=== PATIENT | male | born 1960 | race Caucasian/White ===

== ENCOUNTER → 2016-10-16 | Outpatient (CLI) | payer OTHER ==
[~2016-10-16] MED LIST: ADVIN50/60 INH; ALBINS/ NEB; ALBU0.08 INH; AMT24 PO; CLX/20 PO; DXY100 PO; FLUC100T4 PO; IPRA1AER2 INH; LOVENOX SQ; LPT/20 PO; LUBI8CAP4 PO; MOME200A INH; MRLP17 PO; NYSS5 PO; PANT40TA PO; PRED10TA PO; PRLSR20 PO; PRT/40 PO; RST/30 PO; SENN-61 PO; SPRIN/30 INH; TMF75 PO
--- NOTE | 2016-10-16 15:31 | DIAGNOSTIC IMAGING REPORT ---
CT SCAN OF THE ABDOMEN AND PELVIS WITH IV CONTRAST CLINICAL HISTORY: Follow-up abnormal appendix. COMPARISON STUDY: Abdominal CT dated 04/04/2016. TECHNIQUE: Following the IV administration of 94 cc of Optiray 320, CT scan of the abdomen and pelvis is performed from the lung bases to the proximal femora. Images are reviewed in the axial, sagittal, and coronal planes. IV contrast was administered without complication. Automated dose control exposure was utilized. CT DOSE: 440.18 mGycm FINDINGS: Lung bases: The heart is normal in size noting trace pericardial effusion. Advanced emphysematous change is identified at the lung bases. No airspace consolidation or pleural effusion is seen. There is a tiny hiatal hernia. Liver: The contrast-enhanced liver is normal in size, contour, and attenuation. There is minimal central intrahepatic biliary ductal dilatation. The hepatic veins and portal veins are patent. A 6 mm hypodensity in the left lobe seen on image #44 likely represents a small cyst but is too small for definitive characterization. This is unchanged from previous. Gallbladder: Surgically absent noting clips in the gallbladder fossa. Spleen: Normal in size and attenuation. Pancreas: Unremarkable. Adrenal glands: Unremarkable. Kidneys: The contrast enhanced kidneys are normal in size and without hydronephrosis. The kidneys enhance symmetrically. There are 2 cortical hypodensities in the right lower pole measuring up to 12 mm. These likely represent cysts but are too small for definitive characterization. These are unchanged from previous. Abdominal vasculature: The abdominal aorta is normal in course and caliber noting moderate atherosclerotic calcification. Bowel: The small bowel and colon are normal in course and caliber. There is moderate colonic fecal retention. A metallic foreign body is identified in the sigmoid colon on image #332. The appendix is well-visualized and normal. Peritoneum: There is no intraperitoneal free air or abdominal ascites. There is a fat-containing umbilical hernia. Numerous foci of induration and subcutaneous gas within the ventral abdominal fat are likely related to subcutaneous injections. Lymphadenopathy: None. Pelvic viscera: The prostate gland is mildly enlarged and heterogeneous, measuring up to 4.7 cm in transverse diameter. The bladder and seminal vesicles are normal as imaged. Skeletal structures: The skeletal structures are osteopenic. No lytic or blastic lesions are seen. There are healed left-sided rib fractures. IMPRESSION: 1. There are no acute infectious or inflammatory findings in the abdomen or pelvis. 2. The appendix is well-visualized and normal. Prominence at the appendiceal tip has resolved from 04/04/2016. 3. There is moderate colonic fecal retention. 4. There is an indeterminant metallic foreign body identified in the sigmoid colon. Clinical correlation will be required. 5. There is moderate colonic fecal retention. 6. Advanced emphysema is seen at the lung bases. 7. Nonobstructing right renal calculus. 8. Additional changes as above. Electronically signed by: Jorge Alberto Webber M.D. 10/16/2016 3:29 PM Dictated Date/Time: 10/16/2016 3:19 PM
== END | disposition home or self-care (01) ==
LOC: C.CTS 14:52
PROVIDERS: ATTEND Surgery
DX: K38.9 Disease of appendix, unspecified (principal); K59.00 Constipation, unspecified; J43.9 Emphysema, unspecified; N20.0 Calculus of kidney

== ENCOUNTER 2016-12-01 17:19 | Inpatient (IN) | payer OTHER ==
[~2016-12-01] VITALS: Ht 185.4 cm; Wt 76.2 kg
[~2016-12-01 17:19] MED LIST changes: -ADVIN50/60 INH; -ALBINS/ NEB; -CLX/20 PO; -DXY100 PO; -LUBI8CAP4 PO; -MOME200A INH; -MRLP17 PO; -NYSS5 PO; -PRT/40 PO; -TMF75 PO
[2016-12-01] MEDS ORDERED: SODIUM CHLORIDE 0.9% 1000ML 1,000 ML IV ONE (17:27)
[2016-12-01] MEDS ORDERED: METHYLPREDNISOLONE 125 MG VIAL IV STA (17:29)
[2016-12-01] MEDS ORDERED: ALBUT/IPRATROP 3MG/0.5MG NEB 3 ML VIAL INH ONE (17:30)
[2016-12-01] MEDS ORDERED: CLX/20 PO (17:37)
[2016-12-01 18:00] LABS: BASO % 0.7 %; BASO ABS # 0.05 K/uL (0-0.2); COMPLETE YES; EOS % 2.4 %; HEMATOCRIT 48.5 % (42-52); IG% 0.7 %; LYMPH % 6.3 %; LYMPH ABS # 0.48 K/uL (1.2-3.4); MEAN CELL VOLUME 86.6 fL (80-100); MEAN CORPUSCULAR HEMOGLOBIN 29.3 pg (25-34); MEAN CORPUSCULAR HGB CONC 33.8 g/dl (32-36); MEAN PLATELET VOLUME 9.1 fL (7.4-10.4); MONO % 9.2 %; NEUT % 80.7 %; PLATELET COUNT 212 K/uL (130-400); WHITE BLOOD COUNT 7.58 K/uL (4.8-10.8)
[2016-12-01] MEDS: MoRPHine SULFATE 4 MG/ML 1 ML CARP\\VIAL IV PRN ×3 (18:03→20:16)
[2016-12-01 18:13] LABS: PARTIAL THROMBOPLASTIN RATIO 0.9; PROTHROMBIN TIME (PATIENT) 10.5 SECONDS (9.0-12.0)
[2016-12-01 18:15] VITALS: PULSE 119; O2SAT 96
[2016-12-01] MEDS ORDERED: MOME200A INH (18:17)
[2016-12-01 18:18] LABS: ALT/SGPT 34 U/L (12-78); AST/SGOT 15 U/L (15-37); BLOOD UREA NITROGEN 9 mg/dl (7-18); BUN/CREATININE RATIO 7.7 (10-20); C-REACTIVE PROTEIN 4.58 mg/dl (0-0.29); CALCIUM 8.7 mg/dl (8.5-10.1); CARBON DIOXIDE 28 mmol/L (21-32); CHLORIDE 106 mmol/L (98-107); GLUCOSE 80 mg/dl (70-99); MAGNESIUM 1.8 mg/dl (1.8-2.4); SODIUM 139 mmol/L (136-145)
[2016-12-01] MEDS ORDERED: ADVIN50/60 INH (18:18)
[2016-12-01] MEDS ORDERED: ALBINS/ NEB (18:18)
[2016-12-01] MEDS ORDERED: PRED10TA PO (18:18)
[2016-12-01] MEDS ORDERED: PRT/40 PO (18:18)
[2016-12-01 18:21] LABS: ALKALINE PHOSPHATASE 142 U/L (45-117); CKMB/CK RATIO 2.6 (0-3.0); PHOSPHORUS 3.4 mg/dl (2.5-4.9)
[2016-12-01 18:23] LABS: VEN BLOOD GAS BASE EXCESS 2.7 mmol/L; VENOUS BLOOD GAS PCO2 51 mmHg (38.0-50.0); VENOUS BLOOD GAS PO2 23 mmHg
[2016-12-01 18:31] LABS: VEN BLD GAS O2 SATURATION < 60.0 %
--- NOTE | 2016-12-01 18:37 | DIAGNOSTIC IMAGING REPORT ---
CHEST ONE VIEW PORTABLE CLINICAL HISTORY: Sepsis. Difficulty breathing. COMPARISON STUDY: Chest radiograph March 31, [address] April 14, 2016. FINDINGS: A left subclavian [id number] is in place. There is severe emphysema. There is no pneumothorax or pleural effusion. No consolidation is identified to suggest pneumonia. Linear bilateral opacities are unchanged and favor scarring. Cardiomediastinal silhouette is normal. IMPRESSION: No acute findings. No change in appearance of the chest. Severe emphysema. Electronically signed by: Hansel Lopez M.D. 12/01/2016 6:35 PM Dictated Date/Time: 12/01/2016 6:33 PM
[2016-12-01] MEDS ORDERED: OPTIRAY 320 IV PRN (18:45)
--- NOTE | 2016-12-01 19:53 | DIAGNOSTIC IMAGING REPORT ---
CT ANGIOGRAPHY OF THE CHEST, PULMONARY EMBOLUS PROTOCOL CLINICAL HISTORY: Shortness of breath. History of lung cancer. COMPARISON STUDY: Chest CT April 14, 2016. TECHNIQUE: Following IV administration of 98 mL of Optiray-320, helical axial images of the chest were obtained utilizing the pulmonary embolus protocol. Maximal intensity projections and sagittal and coronal reformats were viewed on an independent 3D workstation. IV contrast was administered without complication. CT DOSE: 247.52 mGy.cm FINDINGS: No pulmonary emboli are identified. There is no evidence of thoracic aortic dissection. The size of the heart is normal. There is no pericardial effusion. Severe emphysema is noted. No pneumothorax or pleural effusion is present. No enlarged thoracic lymph nodes are present. A prominent upper right paratracheal lymph node remains unchanged since prior exam. Scattered irregular nodules within the lungs are unchanged since prior exam as well. No new nodules are present. There is no consolidation. No suspicious osseous lesions are present. Upper abdomen is unremarkable. Biliary ductal dilatation is unchanged and likely due to prior cholecystectomy. Precarinal and right perihilar soft tissue thickening with associated calcifications remains unchanged. IMPRESSION: 1. No pulmonary emboli identified. 2. No change in appearance of the chest since prior exam of April 14, 2016. 3. Severe emphysema. 4. Stable scattered irregular nodules within the lungs. These remain indeterminate and continued imaging follow-up is recommended. Electronically signed by: Hansel Lopez M.D. 12/01/2016 7:52 PM Dictated Date/Time: 12/01/2016 7:38 PM
[2016-12-01] MEDS ORDERED: LEVAQUIN 750MG / 150ML D5W IV STA (20:06)
[2016-12-01] MEDS ORDERED: SODIUM CHLORIDE 0.9% 1000ML 1,000 ML IV STA (20:06)
[2016-12-01] MEDS ORDERED: ALBUT/IPRATROP 3MG/0.5MG NEB 3 ML VIAL INH STA (20:29)
[2016-12-01] MEDS ORDERED: ONDANSETRON INJ 2 MG/ML 2 ML VIAL IV PRN (21:00)
[2016-12-01] MEDS: ALBUT/IPRATROP 3MG/0.5MG NEB 3 ML VIAL INH SCH (21:00)
[2016-12-01] MEDS ORDERED: TRAMADOL HCL 50 MG TAB PO PRN (21:00)
[2016-12-01] MEDS ORDERED: ALBUTEROL 0.083% NEBU SOLN 3 ML VIAL INH PRN (21:00)
--- NOTE | 2016-12-01 21:07 | History and Physical ---
History & Physical Date & Time of Service: Dec 01, 2016 at 21:05 Chief Complaint: Can't Breathe,Abd Cramps,Heart Hurts Primary Care Physician: Isak Zuniga M.D. History of Present Illness Source: patient 56 y/o M w/Hx, COPD, non small cell lung CA, PE 6 months prior. Presents with a productive cough, SOB and abdominal cramps. Pt was tachycardic, borderline hypotensive and mildly hypoxic on arrival to the ER. As he recently had a PE, he was sent for a CTA which revealed only severe emphysema. He denies fevers, N /V, CP, diarrhea or dysuria. The pt was diagnosed with lung CA in 2011 and was treated with radiation and chemo. He was told he was in remission and terminated treatment 08/18. Past Medical/Surgical History Medical Problems: (1) Lung cancer Status: Chronic (2) Mediport Status: Resolved (3) Non-small cell lung cancer Status: Chronic (4) Peptic Ulcer Disease Status: Chronic 5) Severe COPD 6) Hyperlipidemia Family History Cancer Diabetes mellitus Gallbladder disease Heart disease Hypertension Kidney stones Social History Quit smoking 2011 with Dx of CA - denies ETOH Smoking Status: Former Smoker Drug Use: none Marital Status: single Housing status: lives alone Occupational Status: unemployed Immunizations History of Influenza Vaccine: No History of Tetanus Vaccine?: Unknown History of Pneumococcal: No History of Hepatitis B Vaccine: No Multi-Drug Resistant Organisms History of MDRO: No Allergies Coded Allergies: No Known Allergies (Verified , 07/28/16) Home Medications Scheduled Atorvastatin (Atorvastatin Calcium), 20 MG PO QAM Citalopram (Citalopram Hydrobromide), 20 MG PO QAM Fluticasone Prop/Salmeterol (Advair Diskus 500/50 60 Dose), 1 PUFF INH BID Mometasone Furoate-Formoterol (Dulera 200/5 Mcg), 2 PUFFS INH BID Pantoprazole (Pantoprazole Sodium), 40 MG PO QAM Prednisone (Prednisone), 10 MG PO DAILY Tiotropium Comstock (Spiriva Handihaler), 1 CAP INH QPM Scheduled PRN Albuterol Sulf (Proventil 0.083% 2.5MG/3ML), 3 ML NEB Q4-6HRS PRN for SOB/ Wheezing Ipratropium-Albuterol (Combivent Respimat), 1 PUFF INH QID PRN for Shortness of Breath Temazepam (Restoril), 30 MG PO HS PRN for Sleep Review of Systems Constitutional: + weakness, No chills, No fever, No sweats Eyes: No eye pain, No worsening of vision ENT: No hearing loss, No nasal symptoms, No unusual epistaxis Respiratory: + cough, + dyspnea at rest, + dyspnea on exertion, + shortness of breath, + sputum, No wheezing Cardiovascular: No chest pain Abdomen: + pain, No nausea, No vomiting Musculoskeletal: No joint pain, No muscle pain Genitourinary - Male: No dysuria, No hematuria, No urinary frequency Neurologic: No memory loss Psychiatric: No depression symptoms Endocrine: + fatigue, No excessive thirst Hematologic / Lymphatic: No abnormal bleeding/bruising, No clotting problems Integumentary: No rash Allergic / Immunologic: No environmental allergies Physical Exam Vital Signs Date Time Temp Pulse Resp B/P Pulse Ox O2 Delivery O2 Flow Rate FiO2 12/01/16 20:29 99/76 12/01/16 20:19 114 18 94 Nasal Cannula 2.0 12/01/16 20:14 96/74 12/01/16 20:07 102/70 12/01/16 19:49 121 26 89 Room Air 12/01/16 19:44 100/69 12/01/16 19:14 97/63 12/01/16 19:09 124 17 97 12/01/16 18:59 103/72 12/01/16 18:44 98/64 12/01/16 18:39 119 25 98 12/01/16 18:34 118 25 99 12/01/16 18:33 Room Air 12/01/16 18:29 92/75 12/01/16 18:19 118 27 99 12/01/16 18:15 119 22 96 Room Air 12/01/16 18:14 96/76 12/01/16 18:04 118 26 96 12/01/16 17:59 107/73 12/01/16 17:57 113 12/01/16 17:55 97 Room Air 12/01/16 17:44 101/73 12/01/16 17:21 36.9 133 24 94/69 94 Room Air General Appearance: + pertinent finding (Plae appearing middle aged male in no acute distress) Head: normocephalic, atraumatic Eyes: normal inspection, PERRL, EOMI ENT: normal ENT inspection, pharynx normal Neck: supple, no JVD Respiratory/Chest: chest non-tender, + decreased breath sounds Cardiovascular: no edema, no gallop, no murmur, + tachycardia Abdomen/GI: normal bowel sounds, non tender, soft Back: normal inspection Extremities/Musculoskelatal: normal inspection, no calf tenderness, normal capillary refill, no pedal edema, normal range of motion Neurologic/Psych: metal loader II-XII nml as tested, no motor/sensory deficits, alert, normal mood/affect, normal reflexes, oriented x 3 Skin: warm/dry, no rash, + pertinent finding (pallor) Diagnostics Laboratory Results Results Past 24 Hours Test 12/01/16 17:30 12/01/16 18:02 Range/Units White Blood Count 7.58 4.8-10.8 K/uL Red Blood Count 5.60 4.7-6.1 M/uL Hemoglobin 16.4 14.0-18.0 g/dL Hematocrit 48.5 42-52 % Mean Corpuscular Volume 86.6 80-100 fL Mean Corpuscular Hemoglobin 29.3 25-34 pg Mean Corpuscular Hemoglobin Concent 33.8 32-36 g/dl Platelet Count 212 130-400 K/uL Mean Platelet Volume 9.1 7.4-10.4 fL Neutrophils (%) (Auto) 80.7 % Lymphocytes (%) (Auto) 6.3 % Monocytes (%) (Auto) 9.2 % Eosinophils (%) (Auto) 2.4 % Basophils (%) (Auto) 0.7 % Neutrophils # (Auto) 6.12 1.4-6.5 K/uL Lymphocytes # (Auto) 0.48 1.2-3.4 K/uL Monocytes # (Auto) 0.70 0.11-0.59 K/uL Eosinophils # (Auto) 0.18 0-0.5 K/uL Basophils # (Auto) 0.05 0-0.2 K/uL RDW Standard Deviation 51.6 36.4-46.3 fL RDW Coefficient of Variation 16.3 11.5-14.5 % Immature Granulocyte % (Auto) 0.7 % Immature Granulocyte # (Auto) 0.05 0.00-0.02 K/uL Erythrocyte Sedimentation Rate 14 0-14 mm/hr Prothrombin Time 10.5 9.0-12.0 SECONDS Prothromb Time International Ratio 1.0 0.9-1.1 Activated Partial Thromboplast Time 23.8 21.0-31.0 SECONDS Partial Thromboplastin Ratio 0.9 Sodium Level 139 136-145 mmol/L Potassium Level 4.0 3.5-5.1 mmol/L Chloride Level 106 98-107 mmol/L Carbon Dioxide Level 28 21-32 mmol/L Anion Gap 5.0 3-11 mmol/L Blood Urea Nitrogen 9 7-18 mg/dl Creatinine 1.10 0.60-1.40 mg/dl Est Creatinine Clear Calc Drug Dose 78.9 ml/min Estimated GFR () 86.5 Estimated GFR (Non- 74.6 BUN/Creatinine Ratio 7.7 10-20 Random Glucose 80 70-99 mg/dl Calcium Level 8.7 8.5-10.1 mg/dl Phosphorus Level 3.4 2.5-4.9 mg/dl Magnesium Level 1.8 1.8-2.4 mg/dl Total Bilirubin 0.6 0.2-1 mg/dl Aspartate Amino Transf (AST/SGOT) 15 15-37 U/L Alanine Aminotransferase (ALT/SGPT) 34 12-78 U/L Alkaline Phosphatase 142 45-117 U/L Total Creatine Kinase 167 39-308 U/L Creatine Kinase MB 4.3 0.5-3.6 ng/ml Creatine Kinase MB Ratio 2.6 0-3.0 Troponin I < 0.015 0-0.045 ng/ml C-Reactive Protein 4.58 0-0.29 mg/dl Pro-B-Type Natriuretic Peptide 71 0-900 pg/ml Total Protein 6.7 6.4-8.2 gm/dl Albumin 3.4 3.4-5.0 gm/dl Globulin 3.3 2.5-4.0 gm/dl Albumin/Globulin Ratio 1.0 0.9-2 Lipase 113 73-393 U/L Random Cortisol 29.14 mcg/dl Venous Blood pH 7.37 7.36-7.41 Venous Blood Partial Pressure CO2 51 38.0-50.0 mmHg Venous Blood Partial Pressure O2 23 mmHg Venous Blood HCO3 29 mmol/L Venous Blood Oxygen Saturation < 60.0 % Venous Blood Base Excess 2.7 mmol/L Microbiology Results 12/01/16 Blood Culture, Received Pending 12/01/16 Blood Culture, Received Pending Diagnostic Radiology 1. No pulmonary emboli identified. 2. Severe emphysema. 3. Stable scattered irregular nodules within the lungs. These remain indeterminate and continued imaging follow-up is recommended. Impression Assessment and Plan 56 y/o M w/Hx, COPD, non small cell lung CA, PE 6 months prior. Presents with a productive cough, SOB and abdominal cramps. Pt was tachycardic, borderline hypotensive and mildly hypoxic on arrival to the ER. As he recently had a PE, he was sent for a CTA which revealed only severe emphysema. He denies fevers, N /V, CP, diarrhea or dysuria. The pt was diagnosed with lung CA in 2011 and was treated with radiation and chemo. He was told he was in remission and terminated treatment 08/18. 1) SOB - Likely COPD exacerbation - will treat with steroids, Nebs, antibiotics , 02 protocol 2) Tachycardia and low BP - pt states that his BP is normally low - tachycardia may be compensatory and related to Albuterol use. We will monitor on telemetry and provide aggressive hydration. Less likely to represent evolving sepsis as there are no specific findings on CT to indicate bacterial PNM. A sputum culture is pending and he is receiving antibiotics for COPD regardless. 3) HPL - cont lipitor 4) Hx of PE - no PE on CTA - Heparin prophylaxis provided 5) GERD/PUD - cont PPi Full code / heparin prophylaxis Total time for this admit including review of labs, records, imaging - discussion with pt and ER MD - 38 min Level of Care Telemetry Resuscitation Status FULL RESUSCITATION VTE Prophylaxis VTE Risk Assessment Done? Y/N: Yes Risk Level: Moderate Given or contraindicated: Unfractionated heparin SQ
--- NOTE | 2016-12-01 21:51 | EMERGENCY ROOM VISIT NOTE ---
History Report prepared by Valerie: Sruthi Randolph Under the Supervision of: Dr. Bon Jensen D.O. First contact with patient: 17:24 Chief Complaint: SHORTNESS OF BREATH Stated Complaint: CAN'T BREATHE,ABD CRAMPS,HEART HURTS History of Present Illness The patient is a 56 year old male who presents to the Emergency Room with complaints of worsening constant shortness of breath that started a couple days ago. The shortness of breath is not influenced by changes in position. He states that he is on prednisone and inhalers at home, but they have offered him minimal relief. The patient states that it hurts to breath. He is also experiencing a persistent productive cough with white sputum, intermittent chest pain with coughing spells, diffuse abdominal cramping and pain, back pain , and bilateral lower extremity weakness. The patient also states that the balls of his feet feel edematous, but he otherwise denies any lower extremity edema or pain. The patient saw his PCP earlier today and they recommended that he come into the ED based on his symptoms and his history of lung cancer. The patient follows with Dr. Langley for his lung cancer and he saw him about one month ago. The patient adds that he has a history of pulmonary emboli and he was taken off of medication for it two weeks ago because he finished the 6 month treatment. The patient is a former smoker, but he states that he quit in 2011 after he was diagnosed with lung cancer. Source of History: patient Onset: a couple days ago Position: chest Quality: other (shortness of breath) Timing: constant, worsening Associated Symptoms: + abdominal pain (diffuse), + back pain, + chest pain ( intermittent), + cough (productive with white sputum), + weakness (bilateral lower extremities) Note: diffuse abdominal cramping, balls of his feet feel edematous, no lower extremity edema or pain Review of Systems See HPI for pertinent positives & negatives. A total of 10 systems reviewed and were otherwise negative. Past Medical & Surgical Medical Problems: (1) GI bleed (2) Hypertension (3) Lung cancer (4) Mediport (5) Non-small cell lung cancer (6) Peptic Ulcer Disease (7) Pulmonary embolism (8) SOB (shortness of breath) Family History Cancer Diabetes mellitus Gallbladder disease Heart disease Hypertension Kidney stones Social History Smoking Status: Former Smoker Alcohol Use: none Drug Use: none Marital Status: single Housing Status: lives alone Occupation Status: unemployed Current/Historical Medications Scheduled Atorvastatin (Atorvastatin Calcium), 20 MG PO QAM Citalopram (Citalopram Hydrobromide), 20 MG PO QAM Fluticasone Prop/Salmeterol (Advair Diskus 500/50 60 Dose), 1 PUFF INH BID Mometasone Furoate-Formoterol (Dulera 200/5 Mcg), 2 PUFFS INH BID Pantoprazole (Pantoprazole Sodium), 40 MG PO QAM Prednisone (Prednisone), 10 MG PO DAILY Tiotropium Rose (Spiriva Handihaler), 1 CAP INH QPM Scheduled PRN Albuterol Sulf (Proventil 0.083% 2.5MG/3ML), 3 ML NEB Q4-6HRS PRN for SOB/ Wheezing Ipratropium-Albuterol (Combivent Respimat), 1 PUFF INH QID PRN for Shortness of Breath Temazepam (Restoril), 30 MG PO HS PRN for Sleep Allergies Coded Allergies: No Known Allergies (Verified , 07/28/16) Physical Exam Vital Signs Date Time Temp Pulse Resp B/P Pulse Ox O2 Delivery O2 Flow Rate FiO2 12/01/16 20:44 125/79 12/01/16 20:34 118 26 94 Nasal Cannula 2.0 12/01/16 20:29 99/76 12/01/16 20:19 114 18 94 Nasal Cannula 2.0 12/01/16 20:14 96/74 12/01/16 20:07 102/70 12/01/16 19:49 121 26 89 Room Air 12/01/16 19:44 100/69 12/01/16 19:14 97/63 12/01/16 19:09 124 17 97 12/01/16 18:59 103/72 12/01/16 18:44 98/64 12/01/16 18:39 119 25 98 12/01/16 18:34 118 25 99 12/01/16 18:33 Room Air 12/01/16 18:29 92/75 12/01/16 18:19 118 27 99 12/01/16 18:15 119 22 96 Room Air 12/01/16 18:14 96/76 12/01/16 18:04 118 26 96 12/01/16 17:59 107/73 2/27/17 17:57 113 12/01/16 17:55 97 Room Air 12/01/16 17:44 101/73 12/01/16 17:21 36.9 133 24 94/69 94 Room Air Physical Exam GENERAL: Patient is awake, alert, and in no acute distress. Patient is very anxious and uncomfortable appearing. EYES: The conjunctivae are clear. The pupils are round and reactive. EARS, NOSE, MOUTH AND THROAT: The nose is without any evidence of any deformity. Mucous membranes are moist tongue is midline NECK: The neck is nontender and supple. RESPIRATORY: Absent throughout. Significant tachypnea and conversational dyspnea note. Prolonged expiratory phase was significant. CARDIOVASCULAR: Heart sounds were tachycardic but regular. No definite murmurs noted. Heart sounds are distant. GASTROINTESTINAL: The abdomen is soft. Bowel sounds are present in all quadrants. Abdomen is nontender MUSCULOSKELETAL/EXTREMITIES: There is no evidence of gross deformity full range of motion is noted in the hips and shoulders SKIN: Mottled and cool. No pedal edema appreciated. There is no obvious evidence of any rash. There are no petechiae or pallor noted. NEUROLOGIC: Patient is awake alert and oriented x3 Medical Decision & Procedures ER Provider Diagnostic Interpretation: Radiology results as stated below per my review and radiologist interpretation: CHEST ONE VIEW PORTABLE IMPRESSION: No acute findings. No change in appearance of the chest. Severe emphysema. Electronically signed by: Hansel Lopez M.D. 12/01/2016 6:35 PM Dictated Date/Time: 12/01/2016 6:[address] ANGIOGRAPHY OF THE CHEST, PULMONARY EMBOLUS PROTOCOL IMPRESSION: 1. No pulmonary emboli identified. 2. No change in appearance of the chest since prior exam of April 14, 2016. 3. Severe emphysema. 4. Stable scattered irregular nodules within the lungs. These remain indeterminate and continued imaging follow-up is recommended. Electronically signed by: Hansel Lopez M.D. 12/01/2016 7:52 PM Dictated Date/Time: 12/01/2016 7:38 PM Laboratory Results 12/01/16 17:30 Red Blood Count 5.60, Mean Corpuscular Volume 86.6, Mean Corpuscular Hemoglobin 29.3, Mean Corpuscular Hemoglobin Concent 33.8, Mean Platelet Volume 9.1, Neutrophils (%) (Auto) 80.7, Lymphocytes (%) (Auto) 6.3, Monocytes (%) (Auto) 9.2, Eosinophils (%) (Auto) 2.4, Basophils (%) (Auto) 0.7, Neutrophils # (Auto) 6.12, Lymphocytes # (Auto) 0.48, Monocytes # (Auto) 0.70, Eosinophils # (Auto) 0.18, Basophils # (Auto) 0.05 12/01/16 17:30 Test 12/01/16 00:00 12/01/16 17:30 12/01/16 17:50 12/01/16 18:02 Influenza Type A (RT-PCR) POS for Influ A (NEG) Influenza Type B (RT-PCR) Neg for Influ B (NEG) White Blood Count 7.58 K/uL (4.8-10.8) Red Blood Count 5.60 M/uL (4.7-6.1) Hemoglobin 16.4 g/dL (14.0-18.0) Hematocrit 48.5 % (42-52) Mean Corpuscular Volume 86.6 fL (80-100) Mean Corpuscular Hemoglobin 29.3 pg (25-34) Mean Corpuscular Hemoglobin Concent 33.8 g/dl (32-36) Platelet Count 212 K/uL (130-400) Mean Platelet Volume 9.1 fL (7.4-10.4) Neutrophils (%) (Auto) 80.7 % Lymphocytes (%) (Auto) 6.3 % Monocytes (%) (Auto) 9.2 % Eosinophils (%) (Auto) 2.4 % Basophils (%) (Auto) 0.7 % Neutrophils # (Auto) 6.12 K/uL (1.4-6.5) Lymphocytes # (Auto) 0.48 K/uL (1.2-3.4) Monocytes # (Auto) 0.70 K/uL (0.11-0.59) Eosinophils # (Auto) 0.18 K/uL (0-0.5) Basophils # (Auto) 0.05 K/uL (0-0.2) RDW Standard Deviation 51.6 fL (36.4-46.3) RDW Coefficient of Variation 16.3 % (11.5-14.5) Immature Granulocyte % (Auto) 0.7 % Immature Granulocyte # (Auto) 0.05 K/uL (0.00-0.02) Erythrocyte Sedimentation Rate 14 mm/hr (0-14) Prothrombin Time 10.5 SECONDS (9.0-12.0) Prothromb Time International Ratio 1.0 (0.9-1.1) Activated Partial Thromboplast Time 23.8 SECONDS (21.0-31.0) Partial Thromboplastin Ratio 0.9 Anion Gap 5.0 mmol/L (3-11) Est Creatinine Clear Calc Drug Dose 78.9 ml/min Estimated GFR () 86.5 Estimated GFR (Non- 74.6 BUN/Creatinine Ratio 7.7 (10-20) Calcium Level 8.7 mg/dl (8.5-10.1) Phosphorus Level 3.4 mg/dl (2.5-4.9) Magnesium Level 1.8 mg/dl (1.8-2.4) Total Bilirubin 0.6 mg/dl (0.2-1) Aspartate Amino Transf (AST/SGOT) 15 U/L (15-37) Alanine Aminotransferase (ALT/SGPT) 34 U/L (12-78) Alkaline Phosphatase 142 U/L (45-117) Total Creatine Kinase 167 U/L (39-308) Creatine Kinase MB 4.3 ng/ml (0.5-3.6) Creatine Kinase MB Ratio 2.6 (0-3.0) Troponin I < 0.015 ng/ml (0-0.045) C-Reactive Protein 4.58 mg/dl (0-0.29) Pro-B-Type Natriuretic Peptide 71 pg/ml (0-900) Total Protein 6.7 gm/dl (6.4-8.2) Albumin 3.4 gm/dl (3.4-5.0) Globulin 3.3 gm/dl (2.5-4.0) Albumin/Globulin Ratio 1.0 (0.9-2) Lipase 113 U/L (73-393) Random Cortisol 29.14 mcg/dl Bedside Lactic Acid Venous 1.19 mmol/L (0.90-1.70) Venous Blood pH 7.37 (7.36-7.41) Venous Blood Partial Pressure CO2 51 mmHg (38.0-50.0) Venous Blood Partial Pressure O2 23 mmHg Venous Blood HCO3 29 mmol/L Venous Blood Oxygen Saturation < 60.0 % Venous Blood Base Excess 2.7 mmol/L Laboratory results per my review. Medications Administered Medications (Trade) Dose Ordered Sig/Dae Route Start Time Stop Time Status Last Admin Dose Admin Sodium Chloride (Nss 1000ml) 1,000 ml @ 999 mls/hr Q1H1M ONCE IV 12/01/16 17:27 12/01/16 18:27 DC 12/01/16 18:03 999 MLS/HR Albuterol/ Ipratropium (Duoneb) 12 ml ONE ONCE INH 12/01/16 17:30 12/01/16 17:31 DC 12/01/16 17:30 12 ML Methylprednisolone Sodium Succinate (Solu-Medrol IV) 125 mg NOW STAT IV 12/01/16 17:29 12/01/16 17:30 DC 12/01/16 18:02 125 MG Morphine Sulfate 4 mg 4 mg Q15M PRN IV 12/01/16 17:45 12/01/16 22:14 DC 12/01/16 20:16 4 MG Sodium Chloride (Nss 1000ml) 1,000 ml @ 999 mls/hr Q1H1M STAT IV 12/01/16 20:06 12/01/16 21:06 DC 12/01/16 20:39 999 MLS/HR Levofloxacin (Levaquin / D5W) 750 mg NOW STAT IV 12/01/16 20:06 12/01/16 20:07 DC 12/01/16 20:15 750 MG Albuterol/ Ipratropium (Duoneb) 3 ml NOW STAT INH 12/01/16 20:29 12/01/16 20:30 DC 12/01/16 20:39 3 ML ECG Indication: SOB/dyspnea Rate (beats per minute): 116 Rhythm: sinus tachycardia Findings: no ectopy, other (no acute ST segment abnormalities) Comparison ECG Date: 04/14/2016 Change: no significant change ED Course 1726: The patient was evaluated in room C4. A complete history and physical examination were performed. 1727: Ordered NSS 1,000 ml @ 999 mls/hr IV 1729: Ordered Solu-Medrol 125 mg IV 1730: Ordered DuoNeb 12 ml INH 1745: Ordered Morphine Sulfate 4 mg IV 1840: I reassessed the patient and informed him that I would like to order a CT scan to rule out a pulmonary embolism. He is in agreement with the treatment plan. 2005: Ordered Levofloxacin 750 mg IV, NSS 1,000 ml @ 999 mls/hr IV 2028: Ordered DuoNeb 3 ml INH 2029: Upon reevaluation, the patient is resting comfortably. I discussed results and treatment plan with him. He verbalizes agreement and understanding. The patient will be evaluated for further management and care. 2045: I discussed the patient's case with Dr. Dalia ADAMS. The patient will be evaluated for further management. Medical Decision Prior records/ancillary studies reviewed. Triage Nursing notes reviewed. The patient's history was concerning for respiratory difficulties. Differential diagnosis: Etiologies such as infections, reactive airway disease, pneumonia, pneumothorax , COPD, CHF, cardiac ischemia, pulmonary embolism, musculoskeletal, gastrointestinal, as well as others were entertained. The patient is a 56-year-old male who presented to the emergency department for evaluation of severe shortness of breath. The patient as well as pulmonary embolism in the past. He was very tachypneic and had very significant respiratory difficulty. He was treated with bronchodilator therapy IV fluids and IV steroids. He was also started on IV antibiotic in emergency department. Chest x-ray did not show any definite infiltrate. CT the chest did not show any definite pulmonary embolism. The patient was reevaluated multiple times. He still had very significant symptoms. At this time I feel this could represent COPD exacerbation but was very tachycardic and hypotensive. It is possible this also represents sepsis. I discussed the patient's laboratory and radiographic studies with him. I also discussed this case with the on-call [facility] hospitalist group. They've agreed to evaluate the patient in the emergency department for further management and disposition. Consults Time Called: 2031 Consulting Physician: Dr. Dalia ADAMS Returned Call: 2045 I discussed the patient's case with Dr. Dalia ADAMS. The patient will be evaluated for further management. Impression Primary Impression: COPD exacerbation Additional Impressions: Hypoxia Acute bronchiolitis Critical Care I have personally spent greater than 45 minutes of critical care time in the direct management of this patient. This includes bedside care, interpretation of diagnostic studies, and testing, discussion with consultants, patient, and family members, and other required patient management activities. This 45 minutes is in excess of all separately billable procedures. Scribe Attestation The scribe's documentation has been prepared under my direction and personally reviewed by me in its entirety. I confirm that the note above accurately reflects all work, treatment, procedures, and medical decision making performed by me. Departure Information Dispostion Being Evaluated By Hospitalist Referrals Isak Zuniga M.D. (PCP) Patient Instructions My [facility] Problem Qualifiers Additional Impressions: Acute bronchiolitis Bronchiolitis organism: unspecified organism Qualified Codes: J21.9 - Acute bronchiolitis, unspecified
[2016-12-01 22:00] VITALS: BP 103/68; PULSE 114; TEMP 37.6; O2SAT 94; Ht 185.4 cm; Wt 76.2 kg
[2016-12-01] MEDS: D5W AND NSS 1,000 ML IV SCH (22:14)
[2016-12-01] MEDS: TIOTROPIUM BROMIDE 5 PUFF/90 MCG INH INH SCH (22:46)
[2016-12-01] MEDS: FLUTICASONE/SALMETEROL (ADVAIR) 500/50 INH 14 PUFF INH SCH (22:46)
[2016-12-01] MEDS: HEPARIN SOD 5000 UNIT/0.5 ML CARP SQ SCH (22:47)
[2016-12-01] MEDS: ACETAMINOPHEN 325 MG TAB PO SCH (22:48)
[2016-12-01 23:10] LABS: URINE APPEARANCE CLEAR (CLEAR); URINE BILIRUBIN NEG (NEG); URINE COLOR YELLOW; URINE EPITHELIAL CELL AUTO 0-5 /lpf (0-5); URINE NITRITE NEG (NEG); URINE PH 6.5 (4.5-7.5); URINE SPECIFIC GRAVITY > 1.045 (1.000-1.030); UROBILINOGEN NEG (NEG); ZZUR CULT IF INDIC CLEAN CATCH NO
[2016-12-01 23:15] LABS: MANUAL MICROSCOPIC REQUIRED? NO; REVIEW REQ? NO
[2016-12-02] VITALS (11 sets, daily range): BP systolic 93–138; BP diastolic 58–83; PULSE 66–102; TEMP 36.5–37.4; O2SAT 93–96
[2016-12-02 00:24] LABS: INFLUENZA B PCR Neg for Influ B (NEG)
[2016-12-02 00:27] LABS: INFLUENZA A PCR POS for Influ A (NEG)
[2016-12-02] MEDS: ACETAMINOPHEN 325 MG TAB PO SCH ×3 (02:28→10:40)
[2016-12-02] MEDS: ALBUT/IPRATROP 3MG/0.5MG NEB 3 ML VIAL INH SCH ×4 (03:45→20:20)
[2016-12-02] MEDS ORDERED: OSELTAMIVIR PHOSPHATE 75 MG CAP PO ONE (04:00)
[2016-12-02] MEDS: D5W AND NSS 1,000 ML IV SCH (04:29)
[2016-12-02] MEDS: METHYLPREDNISOLONE IV 60 MG in SYRINGE 0 ML IV SCH ×3 (06:02→11:41)
[2016-12-02] MEDS: HEPARIN SOD 5000 UNIT/0.5 ML CARP SQ SCH ×3 (06:04→21:52)
[2016-12-02] MEDS: ATORVASTATIN 20 MG TAB PO SCH (08:59)
[2016-12-02] MEDS: OSELTAMIVIR PHOSPHATE 75 MG CAP PO SCH ×2 (08:59→20:44)
[2016-12-02] MEDS: FLUTICASONE/SALMETEROL (ADVAIR) 500/50 INH 14 PUFF INH SCH (09:00)
[2016-12-02] MEDS: PANTOprazole SOD 40 MG TAB PO SCH (09:00)
[2016-12-02] MEDS: CITALOPRAM 20 MG TAB PO SCH (09:00)
--- NOTE | 2016-12-02 09:25 | Clinical Documentation Query ---
CLINICAL DOCUMENTATION QUERY 56 year old male who presents to the Emergency Room with complaints of worsening constant shortness of breath. In your clinical opinion is this patient being managed for: ( ) Acute hypoxic respiratory failure in setting of COPD exacerbation treated with Nebs, IV Solumedrol, and O2 ( ) Other explanation of clinical findings (Please Explain) ( ) Unable to determine (Please Define) ( ) Need to Discuss ( ) Not Agree The medical record reflects the following clinical findings, treatment, and risk factors. Clinical Indicators: Presents with RA hypoxia of 89%, tachypnea 26, and tachycardia 121. ED assessment stated, "Absent throughout. Significant tachypnea and conversational dyspnea note. Prolonged expiratory phase was significant." Treatment: O2, Nebs, IV solumedrol, telemetry Risk Factors: Cancer, COPD, and PE Please clarify and document your clinical opinion in the progress notes and discharge summary. Terms such as "probable", "suspected", "likely", "questionable", "possible", or "still to be ruled out" are acceptable. IF IN AGREEMENT, YOU MUST DOCUMENT ABOVE DIAGNOSTIC STATEMENT IN DAILY PROGRESS NOTES AND DISCHARGE SUMMARY. This document is not part of the patient's record. Thank You, Benitez Narayanan, KENZIE [phone]
[2016-12-02] MEDS ORDERED: KETOROLAC TROMETHAMINE 30 MG/ML VIAL IV STA (11:06)
--- NOTE | 2016-12-02 12:30 | Hospitalist Progress Note ---
Hospitalist Progress Note Date of Service Dec 02, 2016. (Dominique Gardner PA-C) Subjective Pt evaluation today including: conversation w/ patient, physical exam, chart review, lab review, review of studies, review of inpatient medication list Patient complaining of a productive cough and some dyspnea. Denies fever or chills. Also complaining of a sore throat. Denies any nausea. No CP. Is having some right lower abdominal discomfort. This is not new. This is been going on for many months. No changes in bowel habits. Additional Comments: 6 system review negative. Please see pertinent positives in the history of present illness section. (Dominique Gardner PA-C) Objective Vital Signs Date Time Temp Pulse Resp B/P Pulse Ox O2 Delivery O2 Flow Rate FiO2 12/02/16 12:00 Nasal Cannula 2.0 12/02/16 11:30 36.6 89 20 138/68 95 12/02/16 08:04 36.8 86 20 102/58 96 12/02/16 08:00 Nasal Cannula 2.0 12/02/16 07:38 72 22 94 Nasal Cannula 2.0 12/02/16 04:00 Nasal Cannula 2.0 12/02/16 03:46 36.7 95 22 93/59 93 Nasal Cannula 2.0 12/02/16 03:45 78 22 96 Nasal Cannula 2.0 12/02/16 00:00 37.4 102 20 93/62 93 Nasal Cannula 2.0 12/02/16 00:00 Nasal Cannula 2.0 12/01/16 22:00 37.6 114 26 103/68 94 Nasal Cannula 2.0 12/01/16 22:00 37.6 114 26 103/68 12/01/16 21:44 95/70 12/01/16 21:34 110 28 96 Nasal Cannula 2.0 12/01/16 21:33 Nasal Cannula 4.0 12/01/16 21:29 89/57 12/01/16 21:14 89/64 12/01/16 21:04 113 23 90 Nasal Cannula 2.0 12/01/16 20:59 98/73 12/01/16 20:44 125/79 12/01/16 20:34 118 26 94 Nasal Cannula 2.0 12/01/16 20:29 99/76 12/01/16 20:19 114 18 94 Nasal Cannula 2.0 12/01/16 20:14 96/74 12/01/16 20:07 102/70 12/01/16 19:49 121 26 89 Room Air 12/01/16 19:44 100/69 12/01/16 19:14 97/63 12/01/16 19:09 124 17 97 12/01/16 18:59 103/72 12/01/16 18:44 98/64 12/01/16 18:39 119 25 98 12/01/16 18:34 118 25 99 12/01/16 18:33 Room Air 12/01/16 18:29 92/75 12/01/16 18:19 118 27 99 12/01/16 18:15 119 22 96 Room Air 12/01/16 18:14 96/76 12/01/16 18:04 118 26 96 12/01/16 17:59 107/73 12/01/16 17:57 113 12/01/16 17:55 97 Room Air 12/01/16 17:44 101/73 12/01/16 17:21 36.9 133 24 94/69 94 Room Air (Dominique Gardner, PA-C) Physical Exam General Appearance: + mild distress (mild respiratory distress) Eyes: EOMI Neck: no JVD Respiratory/Chest: + pertinent finding (coarse breath sounds throughout. Mild wheeze noted diffusely. Positive tachypnea. No crackles auscultated.) Cardiovascular: + tachycardia (no murmurs auscultated.) Abdomen: normal bowel sounds, soft, + pertinent finding (mild tenderness to palpation in the right lower quadrant.) Extremities: non-tender, no pedal edema Neurologic/Psychiatric: no motor/sensory deficits, oriented x 3 Skin: warm/dry (Dominique Gardner, PA-C) Laboratory Results 12/01/16 17:30 Red Blood Count 5.60, Mean Corpuscular Volume 86.6, Mean Corpuscular Hemoglobin 29.3, Mean Corpuscular Hemoglobin Concent 33.8, Mean Platelet Volume 9.1, Neutrophils (%) (Auto) 80.7, Lymphocytes (%) (Auto) 6.3, Monocytes (%) (Auto) 9.2, Eosinophils (%) (Auto) 2.4, Basophils (%) (Auto) 0.7, Neutrophils # (Auto) 6.12, Lymphocytes # (Auto) 0.48, Monocytes # (Auto) 0.70, Eosinophils # (Auto) 0.18, Basophils # (Auto) 0.05 12/01/16 17:30 Test 12/01/16 17:30 12/01/16 17:50 12/01/16 18:02 12/01/16 22:50 White Blood Count 7.58 K/uL (4.8-10.8) Red Blood Count 5.60 M/uL (4.7-6.1) Hemoglobin 16.4 g/dL (14.0-18.0) Hematocrit 48.5 % (42-52) Mean Corpuscular Volume 86.6 fL (80-100) Mean Corpuscular Hemoglobin 29.3 pg (25-34) Mean Corpuscular Hemoglobin Concent 33.8 g/dl (32-36) Platelet Count 212 K/uL (130-400) Mean Platelet Volume 9.1 fL (7.4-10.4) Neutrophils (%) (Auto) 80.7 % Lymphocytes (%) (Auto) 6.3 % Monocytes (%) (Auto) 9.2 % Eosinophils (%) (Auto) 2.4 % Basophils (%) (Auto) 0.7 % Neutrophils # (Auto) 6.12 K/uL (1.4-6.5) Lymphocytes # (Auto) 0.48 K/uL (1.2-3.4) Monocytes # (Auto) 0.70 K/uL (0.11-0.59) Eosinophils # (Auto) 0.18 K/uL (0-0.5) Basophils # (Auto) 0.05 K/uL (0-0.2) RDW Standard Deviation 51.6 fL (36.4-46.3) RDW Coefficient of Variation 16.3 % (11.5-14.5) Immature Granulocyte % (Auto) 0.7 % Immature Granulocyte # (Auto) 0.05 K/uL (0.00-0.02) Erythrocyte Sedimentation Rate 14 mm/hr (0-14) Prothrombin Time 10.5 SECONDS (9.0-12.0) Prothromb Time International Ratio 1.0 (0.9-1.1) Activated Partial Thromboplast Time 23.8 SECONDS (21.0-31.0) Partial Thromboplastin Ratio 0.9 Anion Gap 5.0 mmol/L (3-11) Est Creatinine Clear Calc Drug Dose 78.9 ml/min Estimated GFR () 86.5 Estimated GFR (Non- 74.6 BUN/Creatinine Ratio 7.7 (10-20) Calcium Level 8.7 mg/dl (8.5-10.1) Phosphorus Level 3.4 mg/dl (2.5-4.9) Magnesium Level 1.8 mg/dl (1.8-2.4) Total Bilirubin 0.6 mg/dl (0.2-1) Aspartate Amino Transf (AST/SGOT) 15 U/L (15-37) Alanine Aminotransferase (ALT/SGPT) 34 U/L (12-78) Alkaline Phosphatase 142 U/L (45-117) Total Creatine Kinase 167 U/L (39-308) Creatine Kinase MB 4.3 ng/ml (0.5-3.6) Creatine Kinase MB Ratio 2.6 (0-3.0) Troponin I < 0.015 ng/ml (0-0.045) C-Reactive Protein 4.58 mg/dl (0-0.29) Pro-B-Type Natriuretic Peptide 71 pg/ml (0-900) Total Protein 6.7 gm/dl (6.4-8.2) Albumin 3.4 gm/dl (3.4-5.0) Globulin 3.3 gm/dl (2.5-4.0) Albumin/Globulin Ratio 1.0 (0.9-2) Lipase 113 U/L (73-393) Random Cortisol 29.14 mcg/dl Bedside Lactic Acid Venous 1.19 mmol/L (0.90-1.70) Venous Blood pH 7.37 (7.36-7.41) Venous Blood Partial Pressure CO2 51 mmHg (38.0-50.0) Venous Blood Partial Pressure O2 23 mmHg Venous Blood HCO3 29 mmol/L Venous Blood Oxygen Saturation < 60.0 % Venous Blood Base Excess 2.7 mmol/L Urine Color YELLOW Urine Appearance CLEAR (CLEAR) Urine pH 6.5 (4.5-7.5) Urine Specific [place] > 1.045 (1.000-1.030) Urine Protein NEG (NEG) Urine Glucose (UA) NEG (NEG) Urine Ketones TRACE (NEG) Urine Occult Blood TRACE (NEG) Urine Nitrite NEG (NEG) Urine Bilirubin NEG (NEG) Urine Urobilinogen NEG (NEG) Urine Leukocyte Esterase NEG (NEG) Urine WBC (Auto) 0 /hpf (0-5) Urine RBC (Auto) 0-4 /hpf (0-4) Urine Hyaline Casts (Auto) 0 /lpf (0-5) Urine Epithelial Cells (Auto) 0-5 /lpf (0-5) Urine Bacteria (Auto) NEG (NEG) Last 24 Hours Test 12/01/16 17:30 12/01/16 17:50 12/01/16 18:02 12/01/16 22:50 White Blood Count 7.58 K/uL Red Blood Count 5.60 M/uL Hemoglobin 16.4 g/dL Hematocrit 48.5 % Mean Corpuscular Volume 86.6 fL Mean Corpuscular Hemoglobin 29.3 pg Mean Corpuscular Hemoglobin Concent 33.8 g/dl Platelet Count 212 K/uL Mean Platelet Volume 9.1 fL Neutrophils (%) (Auto) 80.7 % Lymphocytes (%) (Auto) 6.3 % Monocytes (%) (Auto) 9.2 % Eosinophils (%) (Auto) 2.4 % Basophils (%) (Auto) 0.7 % Neutrophils # (Auto) 6.12 K/uL Lymphocytes # (Auto) 0.48 K/uL Monocytes # (Auto) 0.70 K/uL Eosinophils # (Auto) 0.18 K/uL Basophils # (Auto) 0.05 K/uL RDW Standard Deviation 51.6 fL RDW Coefficient of Variation 16.3 % Immature Granulocyte % (Auto) 0.7 % Immature Granulocyte # (Auto) 0.05 K/uL Erythrocyte Sedimentation Rate 14 mm/hr Prothrombin Time 10.5 SECONDS Prothromb Time International Ratio 1.0 Activated Partial Thromboplast Time 23.8 SECONDS Partial Thromboplastin Ratio 0.9 Sodium Level 139 mmol/L Potassium Level 4.0 mmol/L Chloride Level 106 mmol/L Carbon Dioxide Level 28 mmol/L Anion Gap 5.0 mmol/L Blood Urea Nitrogen 9 mg/dl Creatinine 1.10 mg/dl Est Creatinine Clear Calc Drug Dose 78.9 ml/min Estimated GFR () 86.5 Estimated GFR (Non- 74.6 BUN/Creatinine Ratio 7.7 Random Glucose 80 mg/dl Calcium Level 8.7 mg/dl Phosphorus Level 3.4 mg/dl Magnesium Level 1.8 mg/dl Total Bilirubin 0.6 mg/dl Aspartate Amino Transf (AST/SGOT) 15 U/L Alanine Aminotransferase (ALT/SGPT) 34 U/L Alkaline Phosphatase 142 U/L Total Creatine Kinase 167 U/L Creatine Kinase MB 4.3 ng/ml Creatine Kinase MB Ratio 2.6 Troponin I < 0.015 ng/ml C-Reactive Protein 4.58 mg/dl Pro-B-Type Natriuretic Peptide 71 pg/ml Total Protein 6.7 gm/dl Albumin 3.4 gm/dl Globulin 3.3 gm/dl Albumin/Globulin Ratio 1.0 Lipase 113 U/L Random Cortisol 29.14 mcg/dl Bedside Lactic Acid Venous 1.19 mmol/L Venous Blood pH 7.37 Venous Blood Partial Pressure CO2 51 mmHg Venous Blood Partial Pressure O2 23 mmHg Venous Blood HCO3 29 mmol/L Venous Blood Oxygen Saturation < 60.0 % Venous Blood Base Excess 2.7 mmol/L Urine Color YELLOW Urine Appearance CLEAR Urine pH 6.5 Urine Specific [place] > 1.045 Urine Protein NEG Urine Glucose (UA) NEG Urine Ketones TRACE Urine Occult Blood TRACE Urine Nitrite NEG Urine Bilirubin NEG Urine Urobilinogen NEG Urine Leukocyte Esterase NEG Urine WBC (Auto) 0 /hpf Urine RBC (Auto) 0-4 /hpf Urine Hyaline Casts (Auto) 0 /lpf Urine Epithelial Cells (Auto) 0-5 /lpf Urine Bacteria (Auto) NEG (Dominique Gardner, PACaC) Assessment and Plan 56-year-old male with a history of COPD and non-small cell lung carcinoma presents emergency department with dyspnea and a productive cough secondary to influenza A. Tachy and hypotensive Acute respiratory failure with hypoxia/Sepsis secondary to influenza A/COPD exacerbation -Continue scheduled DuoNeb's every 6 hours and prn every 2 hours -Continue Tamiflu 75 mg po BID -We'll slightly decrease Solu-Medrol to 40 mg IV q 6 hr -Continue Levaquin 750 mg IV daily -Continue IVF Tachycardia-likely in the setting of acute infectious process mixed with poor oral intake/dehydration-HR improving -change IVF to NS + 20 mEq KCl @ 125 cc/hr hx PE 2015 -Just completed course of anticoagulation 2 weeks ago -Recent CT negative for PE -Vigilant DVT prophylaxis Depression -Continue citalopram Abdominal pain-chronic -had extensive w/u outpt hx nonsmall cell Lung CA -Please follow-up with pulmonary for pulmonary nodules noted on CT. These do however appear chronic. Peptic ulcer disease -Continue pantoprazole 40 mg daily Hyperlipidemia -Continue atorvastatin 20 mg daily DVT prophylaxis -hepainr subQ -TEDS, SCDs CODE STATUS -LEVEL I FULL CODE DISPO -Continue telemetry monitoring for today due to hypotension/tachycardia -Likely DC home with self care (Dominique Gardner, PA-C) Attending Attestation: Pt seen/examined, chart reviewed, care plan d/w PHILIP Gardner. I agree w/ the hanna components of her progress note. Pt feels slightly better this am but having "terrible coughing spells." No fever/chills. Appetite modestly better. VSS, tachy o2 sats acceptable gen - mild tachypnea but no accessory muscle use neck - no JVD heart - tachy, distant heart tones lungs - course, tachypnea, wheezes b/l, decreased airation throughout abd - soft, ND ext - no edema A/P: 1. influenza A infection - tamiflu x 5 days 2. COPD with exacerbation - steroids/abx/tamiflu/nebs/supportive care 3. acute hypoxic resp failure 2nd to #1 and #2 4. abd pain - chronic - ultram prn tx off tele tomorrow if tele is stable Kialee CASAREZ MD (Nate Casarez MD)
[2016-12-02] MEDS: NSS + 20MEQ KCL 1000ML 1,000 ML IV SCH ×2 (13:26→22:55)
[2016-12-02] MEDS ORDERED: ACETAMINOPHEN 325 MG TAB PO PRN (14:00)
[2016-12-02] MEDS: TRAMADOL HCL 50 MG TAB PO PRN ×2 (16:18→20:43)
[2016-12-02] MEDS ORDERED: LEVOFLOXACIN / D5W 750 MG in PREMIXED IN D5W 150 ML IV SCH (18:00)
[2016-12-02] MEDS: METHYLPREDNISOLONE IV 40 MG in SYRINGE 0 ML IV SCH (19:48)
[2016-12-02] MEDS: TIOTROPIUM BROMIDE 5 PUFF/90 MCG INH INH SCH (20:43)
[2016-12-03] VITALS (15 sets, daily range): BP systolic 108–137; BP diastolic 70–88; PULSE 67–107; TEMP 36.5–36.9; O2SAT 92–97
[2016-12-03] MEDS: ALBUT/IPRATROP 3MG/0.5MG NEB 3 ML VIAL INH SCH (02:21)
[2016-12-03] MEDS: METHYLPREDNISOLONE IV 40 MG in SYRINGE 0 ML IV SCH (03:31)
--- NOTE | 2016-12-03 04:58 | Clinical Documentation Query ---
CLINICAL DOCUMENTATION QUERY 56 year old male who presents to the Emergency Room with complaints of worsening constant shortness of breath. In your clinical opinion is this patient being managed for: ( x ) Acute hypoxic respiratory failure in setting of COPD exacerbation secondary to influenza A treated with Nebs, IV Solumedrol, and O2, ABX and tamiflu ( ) Other explanation of clinical findings (Please Explain) ( ) Unable to determine (Please Define) ( ) Need to Discuss ( ) Not Agree The medical record reflects the following clinical findings, treatment, and risk factors. Clinical Indicators: Presents with RA hypoxia of 89%, tachypnea 26, and tachycardia 121. ED assessment stated, "Absent throughout. Significant tachypnea and conversational dyspnea note. Prolonged expiratory phase was significant." Treatment: O2, Nebs, IV solumedrol, telemetry Risk Factors: Cancer, COPD, and PE Please clarify and document your clinical opinion in the progress notes and discharge summary. Terms such as "probable", "suspected", "likely", "questionable", "possible", or "still to be ruled out" are acceptable. IF IN AGREEMENT, YOU MUST DOCUMENT ABOVE DIAGNOSTIC STATEMENT IN DAILY PROGRESS NOTES AND DISCHARGE SUMMARY. This document is not part of the patient's record. Thank You, Benitez Narayanan, RN [phone]
[2016-12-03] MEDS: HEPARIN SOD 5000 UNIT/0.5 ML CARP SQ SCH ×3 (05:24→21:57)
[2016-12-03] MEDS ORDERED: LEVALBUTEROL/IPRATROPIUM NEB INH PRN (07:30)
[2016-12-03] MEDS: IPRATROPIUM BROMIDE NEB SOLN 0.02% 2.5 ML VIAL INH SCH ×3 (07:41→19:38)
[2016-12-03] MEDS: LEVALBUTEROL 1.25MG/0.5ML NEB INH SCH ×3 (07:41→19:38)
[2016-12-03 08:37] LABS: COMPLETE YES; HEMATOCRIT 43.9 % (42-52); IG% 0.5 %; LYMPH % 4.8 %; LYMPH ABS # 0.53 K/uL (1.2-3.4); MEAN CELL VOLUME 87.5 fL (80-100); MEAN CORPUSCULAR HEMOGLOBIN 29.1 pg (25-34); MEAN CORPUSCULAR HGB CONC 33.3 g/dl (32-36); MEAN PLATELET VOLUME 9.1 fL (7.4-10.4); MONO % 2.2 %; NEUT % 92.5 %; PLATELET COUNT 231 K/uL (130-400); RED BLOOD COUNT 5.02 M/uL (4.7-6.1); WHITE BLOOD COUNT 11.05 K/uL (4.8-10.8)
[2016-12-03] MEDS ORDERED: HYDROmorphone INJ 1 MG/ML SYR IV ONE (09:00)
[2016-12-03] MEDS ORDERED: LEVALBUTEROL/IPRATROPIUM NEB INH SCH (09:00)
[2016-12-03 09:12] LABS: BUN/CREATININE RATIO 14.2 (10-20); CALCIUM 8.4 mg/dl (8.5-10.1); MAGNESIUM 2.4 mg/dl (1.8-2.4); POTASSIUM 3.6 mmol/L (3.5-5.1)
[2016-12-03] MEDS: PANTOprazole SOD 40 MG TAB PO SCH (09:27)
[2016-12-03] MEDS: ATORVASTATIN 20 MG TAB PO SCH (09:28)
[2016-12-03] MEDS: OSELTAMIVIR PHOSPHATE 75 MG CAP PO SCH ×2 (09:29→20:22)
[2016-12-03] MEDS: CITALOPRAM 20 MG TAB PO SCH (09:29)
[2016-12-03] MEDS: NSS + 20MEQ KCL 1000ML 1,000 ML IV SCH (10:07)
[2016-12-03] MEDS ORDERED: DOXYCYCLINE HYCLATE 100 MG CAP PO STA (11:03)
[2016-12-03] MEDS: NYSTATIN SUSP 500,000 U/5 ML UDC PO SCH ×3 (11:45→20:21)
--- NOTE | 2016-12-03 11:49 | Hospitalist Progress Note ---
Hospitalist Progress Note Date of Service Dec 03, 2016. (Dominique Gardner PA-C) Subjective Pt evaluation today including: conversation w/ patient, physical exam, chart review, lab review, review of inpatient medication list Patient reports he is still feeling short of breath. Mild productive cough with white sputum. Denies any fever or chills. Is complaining of right upper abdominal pain that feels a squeezing sensation. It is intermittent. This is typical for him. He has suffered with this pain for the last several months. He follows with Dr. Doe from surgery. Denies any chest pain, dizziness or heart palpitations. No nausea. No BM since admission. Additional Comments: 6 system review negative. Please see pertinent positives in the history of present illness section. (Dominique Gardner PA-C) Objective Vital Signs Date Time Temp Pulse Resp B/P Pulse Ox O2 Delivery O2 Flow Rate FiO2 12/03/16 11:20 36.7 96 20 121/80 96 Room Air 12/03/16 08:21 Room Air 12/03/16 08:14 70 16 95 Room Air 12/03/16 08:00 92 Room Air 2.0 12/03/16 07:14 36.5 97 20 108/70 92 Room Air 12/03/16 04:00 95 Room Air 12/03/16 03:27 36.5 101 22 137/88 95 Room Air 12/03/16 02:22 67 18 95 Room Air 12/03/16 00:01 96 Nasal Cannula 2.0 12/02/16 22:56 95 Room Air 12/02/16 22:50 36.7 96 26 126/83 96 Nasal Cannula 2.0 12/02/16 20:20 66 20 96 Nasal Cannula 2.0 12/02/16 20:00 Nasal Cannula 2.0 12/02/16 19:46 36.5 96 32 109/72 96 Nasal Cannula 2.0 12/02/16 16:00 Nasal Cannula 2.0 12/02/16 15:22 36.7 102 24 98/61 95 Nasal Cannula 2.0 12/02/16 12:00 Nasal Cannula 2.0 (Dominique Gardner PA-C) Physical Exam General Appearance: no apparent distress Neck: no JVD Respiratory/Chest: lungs clear (very faint wheezing noted. No crackles or rhonchi.) Cardiovascular: + tachycardia (mildly tachycardic in the low 100s. No murmur.) Abdomen: soft, + pertinent finding (mild subjective tenderness to palpation in the right upper quadrant. No guarding or rebound tenderness. Normal bowel sounds.) Extremities: non-tender, no pedal edema Neurologic/Psychiatric: no motor/sensory deficits, oriented x 3 Skin: warm/dry (Dominique Gardner PA-C) Laboratory Results 12/03/16 07:58 Red Blood Count 5.02, Mean Corpuscular Volume 87.5, Mean Corpuscular Hemoglobin 29.1, Mean Corpuscular Hemoglobin Concent 33.3, Mean Platelet Volume 9.1, Neutrophils (%) (Auto) 92.5, Lymphocytes (%) (Auto) 4.8, Monocytes (%) (Auto) 2.2, Eosinophils (%) (Auto) 0.0, Basophils (%) (Auto) 0.0, Neutrophils # (Auto) 10.23, Lymphocytes # (Auto) 0.53, Monocytes # (Auto) 0.24, Eosinophils # (Auto) 0.00, Basophils # (Auto) 0.00 12/03/16 07:58 Test 12/03/16 07:58 White Blood Count 11.05 K/uL (4.8-10.8) Red Blood Count 5.02 M/uL (4.7-6.1) Hemoglobin 14.6 g/dL (14.0-18.0) Hematocrit 43.9 % (42-52) Mean Corpuscular Volume 87.5 fL (80-100) Mean Corpuscular Hemoglobin 29.1 pg (25-34) Mean Corpuscular Hemoglobin Concent 33.3 g/dl (32-36) Platelet Count 231 K/uL (130-400) Mean Platelet Volume 9.1 fL (7.4-10.4) Neutrophils (%) (Auto) 92.5 % Lymphocytes (%) (Auto) 4.8 % Monocytes (%) (Auto) 2.2 % Eosinophils (%) (Auto) 0.0 % Basophils (%) (Auto) 0.0 % Neutrophils # (Auto) 10.23 K/uL (1.4-6.5) Lymphocytes # (Auto) 0.53 K/uL (1.2-3.4) Monocytes # (Auto) 0.24 K/uL (0.11-0.59) Eosinophils # (Auto) 0.00 K/uL (0-0.5) Basophils # (Auto) 0.00 K/uL (0-0.2) RDW Standard Deviation 52.4 fL (36.4-46.3) RDW Coefficient of Variation 16.4 % (11.5-14.5) Immature Granulocyte % (Auto) 0.5 % Immature Granulocyte # (Auto) 0.05 K/uL (0.00-0.02) Anion Gap 10.0 mmol/L (3-11) Est Creatinine Clear Calc Drug Dose 88.9 ml/min Estimated GFR () 97.1 Estimated GFR (Non- 83.8 BUN/Creatinine Ratio 14.2 (10-20) Calcium Level 8.4 mg/dl (8.5-10.1) Magnesium Level 2.4 mg/dl (1.8-2.4) Last 24 Hours Test 12/03/16 07:58 White Blood Count 11.05 K/uL Red Blood Count 5.02 M/uL Hemoglobin 14.6 g/dL Hematocrit 43.9 % Mean Corpuscular Volume 87.5 fL Mean Corpuscular Hemoglobin 29.1 pg Mean Corpuscular Hemoglobin Concent 33.3 g/dl Platelet Count 231 K/uL Mean Platelet Volume 9.1 fL Neutrophils (%) (Auto) 92.5 % Lymphocytes (%) (Auto) 4.8 % Monocytes (%) (Auto) 2.2 % Eosinophils (%) (Auto) 0.0 % Basophils (%) (Auto) 0.0 % Neutrophils # (Auto) 10.23 K/uL Lymphocytes # (Auto) 0.53 K/uL Monocytes # (Auto) 0.24 K/uL Eosinophils # (Auto) 0.00 K/uL Basophils # (Auto) 0.00 K/uL RDW Standard Deviation 52.4 fL RDW Coefficient of Variation 16.4 % Immature Granulocyte % (Auto) 0.5 % Immature Granulocyte # (Auto) 0.05 K/uL Sodium Level 143 mmol/L Potassium Level 3.6 mmol/L Chloride Level 109 mmol/L Carbon Dioxide Level 24 mmol/L Anion Gap 10.0 mmol/L Blood Urea Nitrogen 14 mg/dl Creatinine 1.00 mg/dl Est Creatinine Clear Calc Drug Dose 88.9 ml/min Estimated GFR () 97.1 Estimated GFR (Non- 83.8 BUN/Creatinine Ratio 14.2 Random Glucose 137 mg/dl Calcium Level 8.4 mg/dl Magnesium Level 2.4 mg/dl (Dominique Gardner, PA-C) Assessment and Plan 56-year-old male with a history of COPD and non-small cell lung carcinoma presents emergency department with dyspnea and a productive cough secondary to influenza A. Tachy and hypotensive Acute respiratory failure with hypoxia/Sepsis/COPD exacerbation secondary to Influenza A -Change duonebs to Xopenex/atrovent q 6 hr tanya/q 4 hr prn -Continue Tamiflu 75 mg po BID -Decrease Solumedrol to 40 mg IV q 12 hr -Continue Levaquin 750 mg IV daily Tachycardia-appears sinus tach. No PE on CT. ?Related to pain vs anxiety -Xopenex as noted above -Continue IVF to NS + 20 mEq KCl @ 125 cc/hr -since this has been stable, transfer to acute care today hx PE 2015 -Just completed course of anticoagulation 2 weeks ago Depression -Continue citalopram Abdominal pain-chronic could be contributing to tachycardia -one dose of Dilaudid 1 mg IV-->THEN AVOID NARCS FOR HX CHRONIC CONSTIPATION AND NARC DEPENDENCE -continue toradol 30 mg IV q 6 hr prn -Ultram increased to 100 mg po q 4 hr prn hx nonsmall cell Lung CA -Needs follow-up with pulmonary for pulmonary nodules noted on CT. These do however appear chronic. Peptic ulcer disease -Continue pantoprazole 40 mg daily Hyperlipidemia -Continue atorvastatin 20 mg daily DVT prophylaxis -hepain subQ -TEDS, SCDs CODE STATUS -LEVEL I FULL CODE DISPO -Anticipate discharge home with no needs. (Dominique Gardner, PA-C) Attending Attestation: Pt seen/examined, chart reviewed, care plan d/w PHILIP Gardner. I agree w/ the hanna components of her progress note except - 1. will d/c IVF. 2. ok to d/c IV levaquin, change to PO doxy 100mg BID to complete 7 day course of abx. He feels better today still with cough and sob but improved VSS, tachy (but also improved) o2 sats acceptable gen - tachypnea resolved neck - no JVD heart - tachy, distant heart tones lungs - airation improved; wheezing improved; no rales; no increased work of breathing abd - soft, ND ext - no edema A/P: 1. influenza A infection - tamiflu x 5 days; day #2/5 of such. 2. COPD with exacerbation - steroids/abx/tamiflu/nebs/supportive care; IMPROVED ; wean steroids; change abx as above 3. acute hypoxic resp failure 2nd to #1 and #2 - improving 4. abd pain - chronic - ultram prn d/c tele, tx to med/surg Kailee HAN MD (Nate Han MD)
[2016-12-03] MEDS: KETOROLAC TROMETHAMINE 30 MG/ML VIAL IV PRN ×2 (14:18→20:25)
[2016-12-03] MEDS: TRAMADOL HCL 50 MG TAB PO PRN ×2 (16:07→22:07)
[2016-12-03] MEDS: DOXYCYCLINE HYCLATE 100 MG CAP PO SCH (20:21)
[2016-12-03] MEDS: TIOTROPIUM BROMIDE 5 PUFF/90 MCG INH INH SCH (20:23)
[2016-12-03] MEDS ORDERED: METHYLPREDNISOLONE IV 40 MG in SYRINGE 0 ML IV SCH (21:00)
[2016-12-04] VITALS (10 sets, daily range): BP systolic 96–132; BP diastolic 64–83; PULSE 81–119; TEMP 36.6–37; O2SAT 92–96
[2016-12-04] MEDS: TEMAZEPAM 15 MG CAP PO PRN (00:53)
[2016-12-04] MEDS: IPRATROPIUM BROMIDE NEB SOLN 0.02% 2.5 ML VIAL INH SCH ×4 (01:49→19:02)
[2016-12-04] MEDS: LEVALBUTEROL 1.25MG/0.5ML NEB INH SCH ×4 (01:49→19:02)
[2016-12-04] MEDS: KETOROLAC TROMETHAMINE 30 MG/ML VIAL IV PRN ×4 (01:54→21:23)
[2016-12-04] MEDS: HEPARIN SOD 5000 UNIT/0.5 ML CARP SQ SCH ×3 (06:16→21:11)
[2016-12-04 06:29] LABS: BUN/CREATININE RATIO 16.1 (10-20); CALCIUM 8.5 mg/dl (8.5-10.1); CREATININE 0.93 mg/dl (0.60-1.40); MAGNESIUM 2.3 mg/dl (1.8-2.4); POTASSIUM 4.2 mmol/L (3.5-5.1)
[2016-12-04 06:47] LABS: COMPLETE YES; HEMATOCRIT 43.8 % (42-52); IG% 0.2 %; LYMPH % 7.9 %; LYMPH ABS # 0.64 K/uL (1.2-3.4); MEAN CELL VOLUME 88.7 fL (80-100); MEAN CORPUSCULAR HEMOGLOBIN 29.1 pg (25-34); MEAN CORPUSCULAR HGB CONC 32.9 g/dl (32-36); MEAN PLATELET VOLUME 9.2 fL (7.4-10.4); MONO % 3.7 %; NEUT % 88.2 %; PLATELET COUNT 235 K/uL (130-400); RED BLOOD COUNT 4.94 M/uL (4.7-6.1); WHITE BLOOD COUNT 8.12 K/uL (4.8-10.8)
[2016-12-04] MEDS: NYSTATIN SUSP 500,000 U/5 ML UDC PO SCH ×4 (08:39→21:13)
[2016-12-04] MEDS: ATORVASTATIN 20 MG TAB PO SCH (08:40)
[2016-12-04] MEDS: CITALOPRAM 20 MG TAB PO SCH (08:40)
[2016-12-04] MEDS: PANTOprazole SOD 40 MG TAB PO SCH (08:40)
[2016-12-04] MEDS: OSELTAMIVIR PHOSPHATE 75 MG CAP PO SCH ×2 (08:41→21:13)
[2016-12-04] MEDS: DOXYCYCLINE HYCLATE 100 MG CAP PO SCH ×2 (08:41→21:13)
[2016-12-04] MEDS ORDERED: POLYETHYLENE (MIRALAX) 17 GM PACK PO STA (10:43)
[2016-12-04] MEDS: DOCUSATE SODIUM 100 MG CAP PO SCH ×2 (12:38→21:12)
--- NOTE | 2016-12-04 12:51 | Hospitalist Progress Note ---
Hospitalist Progress Note Date of Service Dec 04, 2016. (Dominique Gardner PA-C) Subjective Pt evaluation today including: conversation w/ patient, physical exam, chart review, lab review, review of inpatient medication list Patient denies any shortness of breath, but notes that he has not yet been out of the bed. Cough is improving. Sore throat is also improving. Denies any fever or chills. Has not had a bowel movement since admission. Still complaining of the same right upper abdominal pain. Ultram does not seem to be helping. Denies any nausea. Additional Comments: 6 system review negative. Please see pertinent positives in the history of present illness section. (Dominique Gardner PA-C) Objective Vital Signs Date Time Temp Pulse Resp B/P Pulse Ox O2 Delivery O2 Flow Rate FiO2 12/04/16 09:49 92 Room Air 12/04/16 07:57 92 16 94 Room Air 12/04/16 07:13 36.9 83 18 117/80 92 Room Air 12/04/16 01:49 95 18 96 Room Air 12/04/16 00:00 94 Room Air 12/04/16 00:00 37.0 93 132/83 95 Room Air 12/03/16 19:38 107 16 97 Room Air 12/03/16 16:00 94 Room Air 12/03/16 14:42 36.9 100 22 120/78 95 Room Air 12/03/16 14:31 104 16 95 Room Air 12/03/16 13:03 36.8 99 18 94 2.0 (Dominique Gardner PA-C) Physical Exam General Appearance: no apparent distress (resting comfortably in bed.) Neck: no JVD Respiratory/Chest: lungs clear Cardiovascular: regular rate, rhythm Abdomen: normal bowel sounds, soft, + pertinent finding (subjective tenderness in the right upper quadrant.) Extremities: non-tender, no pedal edema Neurologic/Psychiatric: no motor/sensory deficits, oriented x 3 Skin: warm/dry (Dominique Gardner PA-C) Laboratory Results 12/04/16 05:20 Red Blood Count 4.94, Mean Corpuscular Volume 88.7, Mean Corpuscular Hemoglobin 29.1, Mean Corpuscular Hemoglobin Concent 32.9, Mean Platelet Volume 9.2, Neutrophils (%) (Auto) 88.2, Lymphocytes (%) (Auto) 7.9, Monocytes (%) (Auto) 3.7, Eosinophils (%) (Auto) 0.0, Basophils (%) (Auto) 0.0, Neutrophils # (Auto) 7.16, Lymphocytes # (Auto) 0.64, Monocytes # (Auto) 0.30, Eosinophils # (Auto) 0.00, Basophils # (Auto) 0.00 12/04/16 05:20 Test 12/04/16 05:20 White Blood Count 8.12 K/uL (4.8-10.8) Red Blood Count 4.94 M/uL (4.7-6.1) Hemoglobin 14.4 g/dL (14.0-18.0) Hematocrit 43.8 % (42-52) Mean Corpuscular Volume 88.7 fL (80-100) Mean Corpuscular Hemoglobin 29.1 pg (25-34) Mean Corpuscular Hemoglobin Concent 32.9 g/dl (32-36) Platelet Count 235 K/uL (130-400) Mean Platelet Volume 9.2 fL (7.4-10.4) Neutrophils (%) (Auto) 88.2 % Lymphocytes (%) (Auto) 7.9 % Monocytes (%) (Auto) 3.7 % Eosinophils (%) (Auto) 0.0 % Basophils (%) (Auto) 0.0 % Neutrophils # (Auto) 7.16 K/uL (1.4-6.5) Lymphocytes # (Auto) 0.64 K/uL (1.2-3.4) Monocytes # (Auto) 0.30 K/uL (0.11-0.59) Eosinophils # (Auto) 0.00 K/uL (0-0.5) Basophils # (Auto) 0.00 K/uL (0-0.2) RDW Standard Deviation 54.4 fL (36.4-46.3) RDW Coefficient of Variation 16.6 % (11.5-14.5) Immature Granulocyte % (Auto) 0.2 % Immature Granulocyte # (Auto) 0.02 K/uL (0.00-0.02) Anion Gap 10.0 mmol/L (3-11) Est Creatinine Clear Calc Drug Dose 95.6 ml/min Estimated GFR () 106.0 Estimated GFR (Non- 91.4 BUN/Creatinine Ratio 16.1 (10-20) Calcium Level 8.5 mg/dl (8.5-10.1) Magnesium Level 2.3 mg/dl (1.8-2.4) Chemistry Specimen Hemolysis Last 24 Hours Test 12/04/16 05:20 White Blood Count 8.12 K/uL Red Blood Count 4.94 M/uL Hemoglobin 14.4 g/dL Hematocrit 43.8 % Mean Corpuscular Volume 88.7 fL Mean Corpuscular Hemoglobin 29.1 pg Mean Corpuscular Hemoglobin Concent 32.9 g/dl Platelet Count 235 K/uL Mean Platelet Volume 9.2 fL Neutrophils (%) (Auto) 88.2 % Lymphocytes (%) (Auto) 7.9 % Monocytes (%) (Auto) 3.7 % Eosinophils (%) (Auto) 0.0 % Basophils (%) (Auto) 0.0 % Neutrophils # (Auto) 7.16 K/uL Lymphocytes # (Auto) 0.64 K/uL Monocytes # (Auto) 0.30 K/uL Eosinophils # (Auto) 0.00 K/uL Basophils # (Auto) 0.00 K/uL RDW Standard Deviation 54.4 fL RDW Coefficient of Variation 16.6 % Immature Granulocyte % (Auto) 0.2 % Immature Granulocyte # (Auto) 0.02 K/uL Sodium Level 142 mmol/L Potassium Level 4.2 mmol/L Chloride Level 107 mmol/L Carbon Dioxide Level 25 mmol/L Anion Gap 10.0 mmol/L Blood Urea Nitrogen 15 mg/dl Creatinine 0.93 mg/dl Est Creatinine Clear Calc Drug Dose 95.6 ml/min Estimated GFR () 106.0 Estimated GFR (Non- 91.4 BUN/Creatinine Ratio 16.1 Random Glucose 116 mg/dl Calcium Level 8.5 mg/dl Magnesium Level 2.3 mg/dl Chemistry Specimen Hemolysis (Dominique Gardner PACaC) Assessment and Plan 56-year-old male with a history of COPD and non-small cell lung carcinoma presents emergency department with dyspnea and a productive cough secondary to influenza A. Tachy and hypotensive upon admission. Acute respiratory failure with hypoxia/Sepsis/COPD exacerbation secondary to Influenza A-symptoms are much improved -Continue Xopenex/atrovent q 6 hr tanya/q 4 hr prn -Continue Tamiflu 75 mg po BID day 3 -Solu-Medrol changed to prednisone 50 mg daily today. -Initially started on Levaquin 750 mg IV. Changed to doxycycline 100 mg po BID on 12/03. Complete a seven-day course. This is day 4/ of tx Tachycardia-appears sinus tach. No PE on CT. ?Related to pain vs anxiety. Improved hx PE 2015 -Just completed course of anticoagulation 2 weeks ago Depression -Continue citalopram Abdominal pain-chronic unchanged. Concern for drug-seeking behavior. Constipation could be contributing -MiraLAX po daily. First dose now. -Begin docusate 100 mg po BID -NO NARCS FOR HX CHRONIC CONSTIPATION AND NARC DEPENDENCE -continue toradol 30 mg IV q 6 hr prn -Ultram increased to 100 mg po q 4 hr prn hx nonsmall cell Lung CA -Needs follow-up with pulmonary for pulmonary nodules noted on CT. These do however appear chronic. Peptic ulcer disease -Continue pantoprazole 40 mg daily Hyperlipidemia -Continue atorvastatin 20 mg daily DVT prophylaxis -hepain subQ -TEDS, SCDs CODE STATUS -LEVEL I FULL CODE DISPO - observe patient today as steroids were changed from IV to PO. -If he remains stable, likely DC home tomorrow. -Anticipate discharge home with no needs. Other notes/changes per Dr. Casarez (Dominique Gardner, PA-C) Attending Attestation: Pt seen/examined, chart reviewed, care plan d/w PHILIP Gardner. I agree w/ the hanna components of her progress note. Cough/congestion/sob improved +constipation RUQ pain similar to yesterday but "I always have that" he states VSS o2 sats acceptable in RA gen - NAD, no respiratory distress/increased WOB neck - no JVD heart - distant heart tones but no obvious murmur lungs - CTA b/l, minimal course BS b/l, airation again improved today abd - softly distended but NT, BS+ ext - no edema A/P: 1. influenza A infection - tamiflu x 5 days; day #3/5 of such. 2. COPD with exacerbation - steroids/abx/tamiflu/nebs/supportive care; IMPROVED ; wean steroids to PO today; doxy 100 BID for total 7 days 3. acute hypoxic resp failure 2nd to #1 and #2 - resolved 4. abd pain - chronic - ultram prn; constipation may be contributing 5. constipation - bowel regimen anticipate d/c tomorrow Kailee CASAREZ MD (Nate Casarez MD)
[2016-12-04] MEDS: TRAMADOL HCL 50 MG TAB PO PRN ×2 (14:12→22:17)
[2016-12-04] MEDS: TIOTROPIUM BROMIDE 5 PUFF/90 MCG INH INH SCH (21:14)
[2016-12-05] MEDS: TEMAZEPAM 15 MG CAP PO PRN (01:06)
[2016-12-05 01:54] VITALS: PULSE 93; O2SAT 96
[2016-12-05] MEDS: LEVALBUTEROL 1.25MG/0.5ML NEB INH SCH ×2 (01:54→07:32)
[2016-12-05] MEDS: IPRATROPIUM BROMIDE NEB SOLN 0.02% 2.5 ML VIAL INH SCH ×2 (01:54→07:32)
[2016-12-05] MEDS: KETOROLAC TROMETHAMINE 30 MG/ML VIAL IV PRN (03:37)
[2016-12-05] MEDS: HEPARIN SOD 5000 UNIT/0.5 ML CARP SQ SCH (06:04)
[2016-12-05 06:57] VITALS: BP 102/68; PULSE 85; TEMP 36.8; O2SAT 93
[2016-12-05 07:32] VITALS: PULSE 89; O2SAT 97
[2016-12-05] MEDS ORDERED: TMF75 PO (07:39)
[2016-12-05] MEDS ORDERED: DXY100 PO (07:39)
[2016-12-05] MEDS ORDERED: NYSS5 PO (07:39)
[2016-12-05] MEDS ORDERED: PRED10TA PO (07:39)
--- NOTE | 2016-12-05 07:54 | Discharge Instructions ---
Discharge Instructions Admission Reason for Admission: Copd With Exacerbation (Dominique Gardner PA-C) Discharge Discharge Diagnosis / Problem: influenza a, COPD exacerbation (Dominique Gardner PA-C) Discharge Goals Goal(s): Improve function, Therapeutic intervention (Dominique Gardner PA-C) Activity Recommendations Activity Limitations: resume your previous activity . (Dominique Gardner PA-C) Instructions / Follow-Up Instructions / Follow-Up You had been treated in the hospital with influenza, which caused a flare of your COPD The following changes/additions have been made to your medication list: -Tamiflu 75 mg by mouth twice daily. Finished the entire course -Nystatin 5 mL was by mouth 4 times daily for 3 days -Doxycycline 100 mg by mouth twice daily. Finished the entire course -Please follow the instructions on your prednisone taper It is important that you follow up with your primary care physician within one week Please follow up with your lung doctor as scheduled. Call your doctor or return to the emergency department if you have any of the following symptoms: -Fever of 101F or greater -Persistent vomiting - Persistent diarrhea -Lethargy -Chest pain -Shortness of breath -severe dizziness -weakness on one side of your body (Dominique Gardner PA-C) Current Hospital Diet Patient's current hospital diet: AHA Diet (Heart Healthy) (Dominique Gardner PA-C) Discharge Diet Recommended Diet: AHA Diet (Heart Healthy) (Dominique Gardner PA-C) Procedures Procedures Performed: CT 1. No pulmonary emboli identified. 2. No change in appearance of the chest since prior exam of April 14, 2016. 3. Severe emphysema. 4. Stable scattered irregular nodules within the lungs. These remain indeterminate and continued imaging follow-up is recommended. (Dominique Gardner PA-C) Pending Studies Studies pending at discharge: no (Dominique Gardner PA-C) Laboratory Results Lipid Panel Test 09/25/16 14:10 Range/Units Triglycerides Level 205 H 0-150 mg/dl Cholesterol Level 161 0-200 mg/dl HDL Cholesterol 46 mg/dl Cholesterol/HDL Ratio 3.5 LDL Cholesterol, Calculated 74 mg/dl (Dominique Gardner PA-C) Medical Emergencies . Who to Call and When: Medical Emergencies: If at any time you feel your situation is an emergency, please call 911 immediately. . (Dominique Gardner PA-C) Non-Emergent Contact Non-Emergency issues call your: Primary Care Provider . (Dominique Gardner PA-C) . "Provider Documentation" section prepared by Dominique Gardner. (Dominique Gardner PA-C) Attending Attestation: Pt seen & examined on day of discharge with PHILIP Gardner; I agree with her discharge instructions as outlined. Nate Han MD (Nate Han MD) VTE Core Measure Inpt VTE Proph given/why not?: Unfractionated heparin SQ (Dominique Gardner PA-C)
[2016-12-05] MEDS: ATORVASTATIN 20 MG TAB PO SCH (08:25)
[2016-12-05] MEDS: PANTOprazole SOD 40 MG TAB PO SCH (08:25)
[2016-12-05] MEDS ORDERED: BISACODYL 10 MG SUPP PR STA (08:25)
[2016-12-05] MEDS: OSELTAMIVIR PHOSPHATE 75 MG CAP PO SCH (08:26)
[2016-12-05] MEDS: DOXYCYCLINE HYCLATE 100 MG CAP PO SCH (08:26)
[2016-12-05] MEDS: DOCUSATE SODIUM 100 MG CAP PO SCH (08:26)
[2016-12-05] MEDS: CITALOPRAM 20 MG TAB PO SCH (08:27)
[2016-12-05] MEDS: NYSTATIN SUSP 500,000 U/5 ML UDC PO SCH (08:27)
--- NOTE | 2016-12-05 11:38 | Discharge Summary ---
Discharge Summary Date of Service Dec 05, 2016. (Dominique Gardner PA-C) Discharge Summary Admission Date: Dec 01, 2016 at 20:58 Discharge Date: Dec 05, 2016 Discharge Disposition: Home Principal Diagnosis: influenza A, COPD exacerbation Immunizations: Have You Had Influenza Vaccine: No History of Tetanus Vaccine?: Unknown History of Pneumococcal: No History of Hepatitis B Vaccine: No Procedures: CT chest 1. No pulmonary emboli identified. 2. No change in appearance of the chest since prior exam of April 14, 2016. 3. Severe emphysema. 4. Stable scattered irregular nodules within the lungs. These remain indeterminate and continued imaging follow-up is recommended. (Dominique Gardner PA-C) Problems/Secondary Diagnoses: 1. thrush 2. constipation 3. previous h/o chronic pain syndrome (Nate Han MD) Medication Reconciliation New Medications: Doxycycline Hyclate (Doxycycline Hyclate) 100 Mg Cap 100 MG PO BID, #5 CAP Nystatin (Nystatin) 5 Ml Susp 5 ML PO QID for 3 Days Oseltamivir Phosphate (Tamiflu) 75 Mg Cap 75 MG PO BID, #3 CAP Changed Medications: Prednisone (Prednisone) 10 Mg Tab 10 MG PO UD for 30 Days, #40 TAB (Changed from: DAILY) 5 tabs x 1 day 4 tabs x 1 day 3 tabs x 1 day 2 tabs x 1 day then resume 1 tab daily Continued Medications: Albuterol Sulf (Proventil 0.083% 2.5MG/3ML) 2.5 Mg/3 Ml Nebu 3 ML NEB Q4-6HRS PRN for SOB/Wheezing Atorvastatin (Atorvastatin Calcium) 20 Mg Tab 20 MG PO QAM Citalopram (Citalopram Hydrobromide) 20 Mg Tab 20 MG PO QAM Ipratropium-Albuterol (Combivent Respimat) 1 Aer Aer 1 PUFF INH QID PRN for Shortness of Breath, INH Mometasone Furoate-Formoterol (Dulera 200/5 Mcg) 1 Aer Aer 2 PUFFS INH BID Pantoprazole (Pantoprazole Sodium) 40 Mg Tab 40 MG PO QAM Temazepam (Restoril) 30 Mg Cap 30 MG PO HS PRN for Sleep, CAP Tiotropium [place] (Spiriva Handihaler) 30 Puff/540 Mcg Aerp 1 CAP INH QPM, CAP Discontinued Medications: Fluticasone Prop/Salmeterol (Advair Diskus 500/50 60 Dose) 1 Ea Aerp 1 PUFF INH BID Referrals At Discharge Follow up Referrals: Mixing Technician Referral - Within a Month with Rodo Sheehan MD Discharge Exam Breathing is much improved today. Denies any shortness of breath. Was up ambulating in the hallway without difficulty. Denies any chest pain, chest pressure, heart palpitations or dizziness. Mild cough. Still complaining of the same right upper abdominal pain. He did have a small bowel movement last night. No nausea. Tolerating a diet. Review of Systems: Constitutional: No fever Respiratory: No shortness of breath Cardiovascular: No chest pain Abdomen: No nausea Physical Exam: General Appearance: no apparent distress Neck: no JVD Respiratory/Chest: lungs clear Cardiovascular: regular rate, rhythm Abdomen / GI: normal bowel sounds, non tender, soft Extremities: no calf tenderness, no pedal edema Neurologic/Psychiatric: no motor/sensory deficits, oriented x 3 Skin: warm/dry (Dominique Gardner, PACaC) Hospital Course 56-year-old male with a history of COPD and non-small cell lung carcinoma presents emergency department with dyspnea and a productive cough secondary to influenza A. Tachy and hypotensive upon admission. Acute respiratory failure with hypoxia/Sepsis/COPD exacerbation secondary to Influenza A-symptoms are much improved - Xopenex/atrovent q 6 hr tanya/q 4 hr prn-->change to q 6 h prn -Continue Tamiflu 75 mg po BID day 4/5--->given RX -Solu-Medrol changed to prednisone 50 mg daily today-->Rx for prednisone taper -Initially started on Levaquin 750 mg IV. Changed to doxycycline 100 mg po BID on 12/03. Complete a seven-day course. Rx for doxy given Tachycardia-appears sinus tach. No PE on CT. ?Related to pain vs anxiety. Improved -Monitored on tele for 48 hrs Mild oral candidiasis -continue nystatin swish and spit hx PE 2015 -Just completed course of anticoagulation 2 weeks ago Depression -Continue citalopram Abdominal pain-chronic unchanged. Concern for drug-seeking behavior. Constipation could be contributing-Had BM last night -Continue bowel regimen -no narcs hx nonsmall cell Lung CA -Needs follow-up with pulmonary for pulmonary nodules noted on CT. These do however appear chronic. Peptic ulcer disease -Continue pantoprazole 40 mg daily Hyperlipidemia -Continue atorvastatin 20 mg daily DVT prophylaxis -hepain subQ -TEDS, SCDs CODE STATUS -LEVEL I FULL CODE DISPO -d/c home, no needs Other notes/changes per Dr. Han Total Time Spent: Greater than 30 minutes This includes examination of the patient, discharge planning, medication reconciliation, and communication with other providers. (Dominique Gardner PA-C) Attending Attestation: Pt seen/examined, chart reviewed, and care plan d/w PHILIP Gardner on day of discharge. I agree w/ her discharge instructions as outlined. 56yo male with severe COPD - admitted for exacerbation 2nd to influenza A infection. Treated with IV steroids, tamiflu, and narrow-spectrum antibiotics. Made clinical improvement with these measures. At discharge his O2 sats are normal in RA at rest & with activity. Has h/o lung ca - will need ongoing surveillance with pulmonary in light of nodular findings on CT. Discharge exam: gen - nad mouth - thrush plaques - tongue neck - no JVD heart - borderline tachy, s1, s2, no murmur lungs - CTA b/l with no increased work of breathing abd - soft, NT ext - no edema He will discharge home on prednisone taper, a few more doses of tamiflu, and a few more days of doxycycline. Nate Han MD (Nate Han MD) Discharge Instructions Please refer to the electronic Patient Visit Report (Discharge Instructions) for additional information. (Dominique Gardner PA-C) Follow-Up PCP 1 week pulm 1 month (Dominique Gardner PA-C) Additional Copies To Isak Zuniga M.D.; Rodo Sheehan MD
[2016-12-05 12:24] VITALS: BP 102/68; PULSE 89; TEMP 36.8; O2SAT 97
[2016-12-10] MEDS ORDERED: LUBI8CAP4 PO (13:06)
[2016-12-10] MEDS ORDERED: MRLP17 PO (13:06)
== END 2016-12-05 12:56 | disposition home or self-care (01) | DRG 189 ==
LOC: ENRESERVDT → ENRESERVTM → C.EDB 17:20 → C.2T 20:58 → EDBEDREQSVC 12-03 09:57 → C.MS4W 12-03 12:22
PROVIDERS: ADMIT Internal Medicine; ATTEND Internal Medicine
DX: J96.01 Acute respiratory failure with hypoxia (principal); J44.1 Chronic obstructive pulmonary disease with (acute) exacerbation; E86.0 Dehydration; E78.5 Hyperlipidemia, unspecified; Z87.891 Personal history of nicotine dependence; Z79.899 Other long term (current) drug therapy; Z79.52 Long term (current) use of systemic steroids; K21.9 Gastro-esophageal reflux disease without esophagitis; J11.1 Influenza due to unidentified influenza virus with other respiratory manifestations; F32.9 Major depressive disorder, single episode, unspecified; G89.29 Other chronic pain; R10.9 Unspecified abdominal pain; K59.00 Constipation, unspecified; R91.8 Other nonspecific abnormal finding of lung field; Z85.118 Personal history of other malignant neoplasm of bronchus and lung; Z87.11 Personal history of peptic ulcer disease; Z86.711 Personal history of pulmonary embolism; Z80.9 Family history of malignant neoplasm, unspecified; Z83.3 Family history of diabetes mellitus; Z83.79 Family history of other diseases of the digestive system; Z82.49 Family history of ischemic heart disease and other diseases of the circulatory system; Z84.1 Family history of disorders of kidney and ureter

== ENCOUNTER 2016-12-06 13:28 | Inpatient (IN) | payer OTHER ==
[~2016-12-06] VITALS: Ht 185.4 cm; Wt 73.4 kg
[~2016-12-06 13:28] MED LIST changes: +ALBINS/ NEB; -ALBU0.08 INH; -AMT24 PO; +CLX/20 PO; +DXY100 PO; -FLUC100T4 PO; -LOVENOX SQ; +MOME200A INH; +NYSS5 PO; -PANT40TA PO; -PRLSR20 PO; +PRT/40 PO; -SENN-61 PO; +TMF75 PO
[2016-12-06] MEDS ORDERED: KETOROLAC TROMETHAMINE 30 MG/ML VIAL IV STA (13:53)
[2016-12-06] MEDS ORDERED: SODIUM CHLORIDE 0.9% 1000ML 1,000 ML IV STA (13:53)
[2016-12-06] MEDS ORDERED: SODIUM CHLORIDE 0.9% 1000ML 1,000 ML IV ONE (13:53)
--- NOTE | 2016-12-06 13:54 | EMERGENCY ROOM VISIT NOTE ---
History Report prepared by Valerie: Jayesh Wilcox Under the Supervision of: Dr. Hernando Martin M.D. First contact with patient: 13:36 Chief Complaint: ABDOMINAL PAIN Stated Complaint: ABD., SIDE AND BACK PAIN, VOMITING-RELEASED 12/05/16 Nursing Triage Summary: pt reports he was admitted thursday for flu sx then discharged. sx are worse now, sweating, freezing, vomiting, abd pain, problems breathing History of Present Illness The patient is a 56 year old male who presents to the Emergency Room with complaints of persistent right side pain since being discharged from the hospital yesterday. The pain is rated 8/10 in severity. The patient was admitted to the hospital five days ago for influenza symptoms. He was having abdominal pain at that time but now has has pain more towards his side/back. The patient has also had persistent cough, fevers, chills, and global body aches since being admitted. The patient has a history of Stage IV lung cancer and has been in remission since 2013. He also has a history of COPD. He has a port and is on steroids. He was receiving blood thinner injections and narcotics in the hospital. The patient has a history of morphine addiction. Family member at bedside notes that he is behaving the way he did in the past when he was having opiate withdrawal. The patient had a CT of the abdomen while he was in the hospital. He was not discharged with any medications. The patient follows up with Dr. Zuniga. Source of History: patient, family Onset: yesterday Position: other (side, right) Symptom Intensity: 8/10 Timing: other (persistent) Associated Symptoms: + abdominal pain, + chills, + cough, + fevers Review of Systems See HPI for pertinent positives & negatives. A total of 10 systems reviewed and were otherwise negative. Past Medical & Surgical Medical Problems: (1) Constipation (2) GI bleed (3) Hypertension (4) Lung cancer (5) Mediport (6) Non-small cell lung cancer (7) Peptic Ulcer Disease (8) Pulmonary embolism (9) SOB (shortness of breath) Old medical records were reviewed. Nurse's notes were reviewed and I agree with. Family History Cancer Diabetes mellitus Gallbladder disease Heart disease Hypertension Kidney stones Social History Smoking Status: Former Smoker Alcohol Use: none Drug Use: none Marital Status: single Housing Status: lives alone Occupation Status: unemployed Current/Historical Medications Scheduled Atorvastatin (Atorvastatin Calcium), 20 MG PO QAM Citalopram (Citalopram Hydrobromide), 20 MG PO QAM Doxycycline Hyclate (Doxycycline Hyclate), 100 MG PO BID Mometasone Furoate-Formoterol (Dulera 200/5 Mcg), 2 PUFFS INH BID Nystatin (Nystatin), 5 ML PO QID Oseltamivir Phosphate (Tamiflu), 75 MG PO BID Pantoprazole (Pantoprazole Sodium), 40 MG PO QAM Prednisone (Prednisone), 10 MG PO UD Tiotropium [place] (Spiriva Handihaler), 1 CAP INH QPM Scheduled PRN Albuterol Sulf (Proventil 0.083% 2.5MG/3ML), 3 ML NEB Q4-6HRS PRN for SOB/ Wheezing Ipratropium-Albuterol (Combivent Respimat), 1 PUFF INH QID PRN for Shortness of Breath Temazepam (Restoril), 30 MG PO HS PRN for Sleep Allergies Coded Allergies: No Known Allergies (Verified , 07/28/16) Physical Exam Vital Signs Date Time Temp Pulse Resp B/P Pulse Ox O2 Delivery O2 Flow Rate FiO2 12/06/16 18:42 36.6 98 18 130/90 99 12/06/16 18:09 98 18 130/90 99 Room Air 12/06/16 13:32 36.6 80 22 131/78 95 Room Air Physical Exam General: Uncomfortable appearing middle aged male complain of pain, otherwise no acute distress. HEENT: Normal cephalic atraumatic. Pupils are equal round and reactive to light. Extraocular movements are intact. Oropharynx is pink with moist mucous membranes. No swelling of the mouth lips or tongue. Neck: Supple with a midline trachea. No meningeal signs or stiffness, no JVD or bruits. No Stridor. Chest: Clear to auscultation bilaterally. No wheezes or rhonchi. No increased work of breathing. Heart: regular rate and rhythm. Abdomen: Soft nontender, nondistended without rebound guarding or rigidity. Extremities: No cyanosis clubbing or edema. No calf tenderness or assymetry Spine/Back. Non tender to palpation. No CVA tenderness Skin: Good turgor without rashes. Multiple bruises on the arms and abdomen. Neurologic exam: Cranial nerves two through 12 are intact. Motor and sensation are intact and symmetrical throughout. Medical Decision & Procedures ER Provider Diagnostic Interpretation: X-ray results as stated below per interpretation by me and the radiologist: SINGLE VIEW CHEST CLINICAL HISTORY: Atypical chest pain. FINDINGS: An AP, portable, upright chest radiograph is compared to chest x-ray and chest CT dated 12/01/2016. The examination is degraded by portable technique and patient rotation. A left subclavian central venous infusion port is unchanged in position. The cardiomediastinal silhouette is unremarkable. There is atherosclerotic calcification of the thoracic aorta. Enlargement of the central pulmonary arteries suggests pulmonary artery hypertension. Advanced emphysema with chronic interstitial thickening/nodularity is similar to previous. No superimposed airspace consolidation or pleural effusion is identified. No pneumothorax is seen. The skeletal structures are osteopenic. The bony thorax is grossly intact. IMPRESSION: Advanced emphysema and chronic parenchyma changes as above with no acute cardiopulmonary abnormality. There has been no significant change from chest x-ray and chest CT dated 12/01/2016. Electronically signed by: Jorge Alberto Webber M.D. 12/06/2016 2:15 PM Dictated Date/Time: 12/06/2016 2:13 PM PA CHEST WITH ABDOMINAL SERIES CLINICAL HISTORY: Generalized abdominal pain. Constipation. FINDINGS: A PA chest radiograph is compared to study performed earlier the same day 12/06/2016. A left subclavian central venous infusion port is unchanged in position. The cardiomediastinal silhouette is unremarkable. There is atherosclerotic calcification of the thoracic aorta. Enlargement of the central pulmonary arteries suggests pulmonary artery hypertension. Advanced emphysema with chronic interstitial thickening/nodularity is similar to previous. No superimposed airspace consolidation or pleural effusion is identified. No pneumothorax is seen. The skeletal structures are osteopenic. The bony thorax is grossly intact. Supine and erect abdominal radiograph are correlated with abdominal CT dated 10/16/2016. There is a nonobstructed abdominal bowel gas pattern. There is moderate to severe colonic fecal retention. Cholecystectomy clips are seen in the right upper quadrant. A surgical clip is also seen in the pelvis. No intraperitoneal free air is seen. Pelvic phleboliths are observed. The lumbosacral spine and bony pelvis appear intact. IMPRESSION: 1. Advanced emphysema and chronic parenchyma changes as above with no acute cardiopulmonary abnormality. There has been no significant change from the study performed earlier the same day. 2. Moderate to severe constipation. Electronically signed by: Jorge Alberto Webber M.D. 12/06/2016 4:43 PM Dictated Date/Time: 12/06/2016 4:39 PM Laboratory Results 12/06/16 14:30 Red Blood Count 5.74, Mean Corpuscular Volume 85.4, Mean Corpuscular Hemoglobin 28.9, Mean Corpuscular Hemoglobin Concent 33.9, Mean Platelet Volume 9.2, Neutrophils (%) (Auto) 88.4, Lymphocytes (%) (Auto) 5.9, Monocytes (%) (Auto) 4.1, Eosinophils (%) (Auto) 0.1, Basophils (%) (Auto) 0.1, Neutrophils # (Auto) 9.61, Lymphocytes # (Auto) 0.64, Monocytes # (Auto) 0.45, Eosinophils # (Auto) 0.01, Basophils # (Auto) 0.01 12/06/16 14:30 Test 12/06/16 14:30 12/06/16 15:20 12/06/16 18:08 White Blood Count 10.87 K/uL (4.8-10.8) Red Blood Count 5.74 M/uL (4.7-6.1) Hemoglobin 16.6 g/dL (14.0-18.0) Hematocrit 49.0 % (42-52) Mean Corpuscular Volume 85.4 fL (80-100) Mean Corpuscular Hemoglobin 28.9 pg (25-34) Mean Corpuscular Hemoglobin Concent 33.9 g/dl (32-36) Platelet Count 264 K/uL (130-400) Mean Platelet Volume 9.2 fL (7.4-10.4) Neutrophils (%) (Auto) 88.4 % Lymphocytes (%) (Auto) 5.9 % Monocytes (%) (Auto) 4.1 % Eosinophils (%) (Auto) 0.1 % Basophils (%) (Auto) 0.1 % Neutrophils # (Auto) 9.61 K/uL (1.4-6.5) Lymphocytes # (Auto) 0.64 K/uL (1.2-3.4) Monocytes # (Auto) 0.45 K/uL (0.11-0.59) Eosinophils # (Auto) 0.01 K/uL (0-0.5) Basophils # (Auto) 0.01 K/uL (0-0.2) RDW Standard Deviation 51.0 fL (36.4-46.3) RDW Coefficient of Variation 16.3 % (11.5-14.5) Immature Granulocyte % (Auto) 1.4 % Immature Granulocyte # (Auto) 0.15 K/uL (0.00-0.02) Prothrombin Time 10.0 SECONDS (9.0-12.0) Prothromb Time International Ratio 0.9 (0.9-1.1) Activated Partial Thromboplast Time 31.2 SECONDS (21.0-31.0) Partial Thromboplastin Ratio 1.2 Anion Gap 12.0 mmol/L (3-11) Est Creatinine Clear Calc Drug Dose 85.6 ml/min Estimated GFR () 97.1 Estimated GFR (Non- 83.8 BUN/Creatinine Ratio 16.5 (10-20) Calcium Level 8.8 mg/dl (8.5-10.1) Magnesium Level 2.1 mg/dl (1.8-2.4) Total Bilirubin 0.7 mg/dl (0.2-1) Direct Bilirubin 0.1 mg/dl (0-0.2) Aspartate Amino Transf (AST/SGOT) 20 U/L (15-37) Alanine Aminotransferase (ALT/SGPT) 51 U/L (12-78) Alkaline Phosphatase 156 U/L (45-117) Troponin I < 0.015 ng/ml (0-0.045) Total Protein 6.5 gm/dl (6.4-8.2) Albumin 3.4 gm/dl (3.4-5.0) Lipase 150 U/L (73-393) Bedside Troponin I 0.000 ng/ml (0-0.045) Laboratory studies as stated above per my review. Medications Administered Medications (Trade) Dose Ordered Sig/Dae Route Start Time Stop Time Status Last Admin Dose Admin Ketorolac Tromethamine 30 mg 30 mg NOW STAT IV 12/06/16 13:53 12/06/16 13:54 DC 12/06/16 13:53 30 MG Sodium Chloride 1,000 ml @ 999 mls/hr Q1H1M STAT IV 12/06/16 13:53 12/06/16 14:53 DC 12/06/16 13:53 999 MLS/HR Sodium Chloride (Nss 1000ml) 1,000 ml @ 150 mls/hr Q6H40M ONCE IV 12/06/16 13:53 12/06/16 20:32 12/06/16 13:53 150 MLS/HR Ondansetron HCl (Zofran Inj) 4 mg NOW STAT IV 12/06/16 15:27 12/06/16 15:28 DC 12/06/16 15:41 4 MG Tramadol HCl (Ultram Tab) 100 mg NOW STAT PO 12/06/16 15:49 12/06/16 15:50 DC 12/06/16 15:59 100 MG ECG Indication: abdominal pain Rate (beats per minute): 93 Rhythm: normal sinus Findings: no acute ischemic change, no ectopy Comparison ECG Date: 2016 Change: no significant change ED Course 1340: Past medical records reviewed. The patient was evaluated in room A10, and a complete history and physical examination were performed. 1353: NSS 1000 ml @ 150 mls/hr, NSS 1000 ml @ 999 mls/hr, Toradol 30 mg IV. 1525: The patient requested pain and nausea medication. 1527: Zofran 4 mg IV. 1546: Spoke with Dr. Han, Internal Medicine. He recommended an acute abdominal series and also recommended that he not receive any narcotics. 1549: Ultram 100 mg PO. 1552: Updated the patient. 1724: Spoke with Dr. Han again. He will evaluate the patient. Medical Decision Differential diagnosis includes influenza, COPD exacerbation, infection, opiate withdrawal, electrolyte or metabolic abnormality. This patient comes in as described above he's had abdominal pain he was discharged from the hospital yesterday he does have chronic abdominal pain and has had issues with narcotic dependence in the past. He has a history of constipation. He tells me that he lied when the team asked that he had a bowel movement yesterday but has not had a bowel movement for about 10 days now. He' s had no vomiting. He has a port which was access. Chest x-ray multiple blood tests was obtained. Chest x-ray does not show congestive heart failure, pneumonia, or pneumothorax. He has no electrode or metabolic abnormalities and his blood work looks good without any other acute abnormalities. His acute abdominal series does show a moderate amount of constipation but no free air or any bowel obstruction. He was given IV Toradol for pain and was given Ultram 100 mg by mouth. He was given Zofran 4 mg IV for nausea despite this he says he does not feel well I have talked talked to Dr. Valle and they are going to observe him for GoLYTELY and treatment for his constipation and pain. Consults Time Called: 1539 Consulting Physician: Dr. Han, Internal Medicine Returned Call: [phone]: Spoke with Dr. Han, Internal Medicine. He recommended an acute abdominal series and also recommended that he not receive any narcotics. Impression Primary Impression: Right sided abdominal pain Additional Impression: Constipation Scribe Attestation The scribe's documentation has been prepared under my direction and personally reviewed by me in its entirety. I confirm that the note above accurately reflects all work, treatment, procedures, and medical decision making performed by me. Departure Information Dispostion Being Evaluated By Hospitalist Referrals Isak Zuniga M.D. (PCP) Patient Instructions My [facility] Problem Qualifiers
--- NOTE | 2016-12-06 14:16 | DIAGNOSTIC IMAGING REPORT ---
SINGLE VIEW CHEST CLINICAL HISTORY: Atypical chest pain. FINDINGS: An AP, portable, upright chest radiograph is compared to chest x-ray and chest CT dated 12/01/2016. The examination is degraded by portable technique and patient rotation. A left subclavian central venous infusion port is unchanged in position. The cardiomediastinal silhouette is unremarkable. There is atherosclerotic calcification of the thoracic aorta. Enlargement of the central pulmonary arteries suggests pulmonary artery hypertension. Advanced emphysema with chronic interstitial thickening/nodularity is similar to previous. No superimposed airspace consolidation or pleural effusion is identified. No pneumothorax is seen. The skeletal structures are osteopenic. The bony thorax is grossly intact. IMPRESSION: Advanced emphysema and chronic parenchyma changes as above with no acute cardiopulmonary abnormality. There has been no significant change from chest x-ray and chest CT dated 12/01/2016. Electronically signed by: Jorge Alberto Webber M.D. 12/06/2016 2:15 PM Dictated Date/Time: 12/06/2016 2:13 PM
[2016-12-06 14:42] LABS: BASO % 0.1 %; BASO ABS # 0.01 K/uL (0-0.2); COMPLETE YES; EOS % 0.1 %; IG% 1.4 %; LYMPH % 5.9 %; LYMPH ABS # 0.64 K/uL (1.2-3.4); MEAN CELL VOLUME 85.4 fL (80-100); MEAN CORPUSCULAR HEMOGLOBIN 28.9 pg (25-34); MEAN CORPUSCULAR HGB CONC 33.9 g/dl (32-36); MEAN PLATELET VOLUME 9.2 fL (7.4-10.4); MONO % 4.1 %; NEUT % 88.4 %; PLATELET COUNT 264 K/uL (130-400); RED BLOOD COUNT 5.74 M/uL (4.7-6.1); WHITE BLOOD COUNT 10.87 K/uL (4.8-10.8)
[2016-12-06 14:53] LABS: INR 0.9 (0.9-1.1); PARTIAL THROMBOPLASTIN RATIO 1.2
[2016-12-06 14:57] LABS: ALT/SGPT 51 U/L (12-78); BLOOD UREA NITROGEN 17 mg/dl (7-18); BUN/CREATININE RATIO 16.5 (10-20); CALCIUM 8.8 mg/dl (8.5-10.1); CARBON DIOXIDE 24 mmol/L (21-32); CHLORIDE 106 mmol/L (98-107); GLUCOSE 134 mg/dl (70-99); POTASSIUM 3.7 mmol/L (3.5-5.1); SODIUM 142 mmol/L (136-145)
[2016-12-06 15:00] LABS: ALKALINE PHOSPHATASE 156 U/L (45-117); AST/SGOT 20 U/L (15-37)
[2016-12-06] MEDS ORDERED: ONDANSETRON INJ 2 MG/ML 2 ML VIAL IV STA ×2 (15:27→17:52)
[2016-12-06] MEDS ORDERED: TRAMADOL HCL 50 MG TAB PO STA (15:49)
--- NOTE | 2016-12-06 16:44 | DIAGNOSTIC IMAGING REPORT ---
PA CHEST WITH ABDOMINAL SERIES CLINICAL HISTORY: Generalized abdominal pain. Constipation. FINDINGS: A PA chest radiograph is compared to study performed earlier the same day 12/06/2016. A left subclavian central venous infusion port is unchanged in position. The cardiomediastinal silhouette is unremarkable. There is atherosclerotic calcification of the thoracic aorta. Enlargement of the central pulmonary arteries suggests pulmonary artery hypertension. Advanced emphysema with chronic interstitial thickening/nodularity is similar to previous. No superimposed airspace consolidation or pleural effusion is identified. No pneumothorax is seen. The skeletal structures are osteopenic. The bony thorax is grossly intact. Supine and erect abdominal radiograph are correlated with abdominal CT dated 10/16/2016. There is a nonobstructed abdominal bowel gas pattern. There is moderate to severe colonic fecal retention. Cholecystectomy clips are seen in the right upper quadrant. A surgical clip is also seen in the pelvis. No intraperitoneal free air is seen. Pelvic phleboliths are observed. The lumbosacral spine and bony pelvis appear intact. IMPRESSION: 1. Advanced emphysema and chronic parenchyma changes as above with no acute cardiopulmonary abnormality. There has been no significant change from the study performed earlier the same day. 2. Moderate to severe constipation. Electronically signed by: Jorge Alberto Webber M.D. 12/06/2016 4:43 PM Dictated Date/Time: 12/06/2016 4:39 PM
[2016-12-06] MEDS ORDERED: ACETAMINOPHEN 325 MG TAB PO PRN (17:30)
[2016-12-06] MEDS ORDERED: IPRATROPIUM BROMIDE/ALBUTEROL respimat INH INH PRN (17:30)
[2016-12-06] MEDS ORDERED: HYDROmorphone INJ 0.5 MG/0.5 ML SYR IV STA (17:52)
[2016-12-06] MEDS ORDERED: IV FLUIDS COMPLETED PRN (18:15)
[2016-12-06 18:21] LABS: MAGNESIUM 2.1 mg/dl (1.8-2.4)
--- NOTE | 2016-12-06 18:31 | History and Physical ---
History & Physical Date & Time of Service: Dec 06, 2016 at 18:07 Chief Complaint: Abd., Side And Back Pain, Vomiting-Released 12/05/16 Primary Care Physician: Isak Zuniga M.D. History of Present Illness Source: patient 56yo male with h/o severe COPD and lung cancer (currently in remission) and well known to me from multiple past hospital stays including an admission this week for COPD exacerbation due to flu A infection who presents with c/o abdominal pain, mainly right-sided. During the hospital admission this week he had had this same complaint and it was attributed to chronic constipation. He reported all week that this pain was chronic but modestly worse than normal. It was treated with ultram prn, toradol prn, and an aggressive bowel regimen. Yesterday AM (day of discharge) he told myself and our PA, Dominique Gardner, that he had had a bowel movement. Today he openly admits that he did not tell us the truth and in fact did NOT have a bowel movement during his hospitalization. In fact, it has been 7-10 days since his last bowel movement. After discharge yesterday he returned home and ate/drank normally last night. He took his doxycycline and tamiflu as directed. Today he reports several episodes of emesis but was able to drink some fluids. He also took his regularly scheduled meds. During my assessment he asks continually for "something for pain." Of note - Mr. Rosales was on chronic opiates for several years while being treated for lung cancer. He stopped the MS-contin (was weaned off) by his primary care provider several months ago. He denies any illicit drug or narcotic usage. He has not been taking any bowel maintenance medications since the time he stopped the MS-contin. Past Medical/Surgical History PMH: 1. h/o non-small cell lung cancer - in remission, s/p chemotherapy 2. severe COPD 3. previous tobacco dependence 4. chronic constipation 5. h/o chronic pain syndrome 6. h/o PUD PSH: 1. a-port placement 2. h/o PEG tube placement with subsequent removal of such 3. s/p cholecystectomy 4. s/p closure of abdominal wall fistula at site of previous PEG tube Family History Cancer Diabetes mellitus Gallbladder disease Heart disease Hypertension Kidney stones Social History Smoking Status: Former Smoker Smokeless Tobacco Use: No Alcohol Use: none Drug Use: none Marital Status: single Housing status: lives alone (has a dog named Delfina ) Occupational Status: unemployed Immunizations History of Influenza Vaccine: No History of Tetanus Vaccine?: Unknown History of Pneumococcal: No History of Hepatitis B Vaccine: No Multi-Drug Resistant Organisms History of MDRO: No Allergies Coded Allergies: No Known Allergies (Verified , 07/28/16) Home Medications Scheduled Atorvastatin (Atorvastatin Calcium), 20 MG PO QAM Citalopram (Citalopram Hydrobromide), 20 MG PO QAM Doxycycline Hyclate (Doxycycline Hyclate), 100 MG PO BID Mometasone Furoate-Formoterol (Dulera 200/5 Mcg), 2 PUFFS INH BID Nystatin (Nystatin), 5 ML PO QID Oseltamivir Phosphate (Tamiflu), 75 MG PO BID Pantoprazole (Pantoprazole Sodium), 40 MG PO QAM Prednisone (Prednisone), 10 MG PO UD Tiotropium [place] (Spiriva Handihaler), 1 CAP INH QPM Scheduled PRN Albuterol Sulf (Proventil 0.083% 2.5MG/3ML), 3 ML NEB Q4-6HRS PRN for SOB/ Wheezing Ipratropium-Albuterol (Combivent Respimat), 1 PUFF INH QID PRN for Shortness of Breath Temazepam (Restoril), 30 MG PO HS PRN for Sleep Review of Systems Constitutional: No chills, No fever, No weakness ENT: + problem reported (mild tongue soreness from thrush), No nasal symptoms, No sore throat Respiratory: + dyspnea on exertion, + shortness of breath, No cough, No sputum , No wheezing Cardiovascular: No PND, No chest pain, No edema, No orthopnea Abdomen: + constipation, + nausea, + pain, + vomiting, No GI bleeding, No diarrhea Musculoskeletal: No joint pain, No muscle pain Genitourinary - Male: No dysuria Neurologic: + numbness/tingling (chronic - both feet; acute - from both knees down to the feet -- today only) Psychiatric: No depression symptoms Endocrine: No fatigue Hematologic / Lymphatic: + abnormal bleeding/bruising (from previous phlebotomy sites and IVs) Integumentary: No rash Physical Exam Vital Signs Date Time Temp Pulse Resp B/P Pulse Ox O2 Delivery O2 Flow Rate FiO2 3/4/17 13:32 36.6 80 22 131/78 95 Room Air General Appearance: + mild distress (due to abdominal pain) Head: normocephalic, atraumatic Eyes: normal inspection, PERRL, sclerae normal ENT: hearing grossly normal, TMs normal, + pertinent finding (MMM; tongue with thrush plaques) Neck: supple, no adenopathy, thyroid normal, no JVD Respiratory/Chest: lungs clear, normal breath sounds, no respiratory distress ( mild tachypnea but no increased work of breathing), no accessory muscle use Cardiovascular: regular rate, rhythm, no gallop, no murmur, normal peripheral pulses Abdomen/GI: soft, no organomegaly, + tenderness (RUQ and right flank), + abnormal bowel sounds (diminished), + pertinent finding (multiple scars on abdominal wall) Back: + right CVA tenderness Extremities/Musculoskelatal: no pedal edema Neurologic/Psych: alert, oriented x 3, + abnormal reflexes (modestly brisk reflexes (patellar); 2+ reflexes in arms) Skin: + pertinent finding (ecchymoses on arms, abdominal wall ) Lymphatic: no adenopathy (cervical ) rectal exam - prostate mildly enlarged but smooth with no nodules and no tenderness; no fecal impaction; stool heme negative. No rectal masses. Good rectal tone. Diagnostics Laboratory Results Results Past 24 Hours Test 12/06/16 14:30 12/06/16 15:20 Range/Units White Blood Count 10.87 4.8-10.8 K/uL Red Blood Count 5.74 4.7-6.1 M/uL Hemoglobin 16.6 14.0-18.0 g/dL Hematocrit 49.0 42-52 % Mean Corpuscular Volume 85.4 80-100 fL Mean Corpuscular Hemoglobin 28.9 25-34 pg Mean Corpuscular Hemoglobin Concent 33.9 32-36 g/dl Platelet Count 264 130-400 K/uL Mean Platelet Volume 9.2 7.4-10.4 fL Neutrophils (%) (Auto) 88.4 % Lymphocytes (%) (Auto) 5.9 % Monocytes (%) (Auto) 4.1 % Eosinophils (%) (Auto) 0.1 % Basophils (%) (Auto) 0.1 % Neutrophils # (Auto) 9.61 1.4-6.5 K/uL Lymphocytes # (Auto) 0.64 1.2-3.4 K/uL Monocytes # (Auto) 0.45 0.11-0.59 K/uL Eosinophils # (Auto) 0.01 0-0.5 K/uL Basophils # (Auto) 0.01 0-0.2 K/uL RDW Standard Deviation 51.0 36.4-46.3 fL RDW Coefficient of Variation 16.3 11.5-14.5 % Immature Granulocyte % (Auto) 1.4 % Immature Granulocyte # (Auto) 0.15 0.00-0.02 K/uL Prothrombin Time 10.0 9.0-12.0 SECONDS Prothromb Time International Ratio 0.9 0.9-1.1 Activated Partial Thromboplast Time 31.2 21.0-31.0 SECONDS Partial Thromboplastin Ratio 1.2 Sodium Level 142 136-145 mmol/L Potassium Level 3.7 3.5-5.1 mmol/L Chloride Level 106 98-107 mmol/L Carbon Dioxide Level 24 21-32 mmol/L Anion Gap 12.0 3-11 mmol/L Blood Urea Nitrogen 17 7-18 mg/dl Creatinine 1.00 0.60-1.40 mg/dl Est Creatinine Clear Calc Drug Dose 85.6 ml/min Estimated GFR () 97.1 Estimated GFR (Non- 83.8 BUN/Creatinine Ratio 16.5 10-20 Random Glucose 134 70-99 mg/dl Calcium Level 8.8 8.5-10.1 mg/dl Total Bilirubin 0.7 0.2-1 mg/dl Direct Bilirubin 0.1 0-0.2 mg/dl Aspartate Amino Transf (AST/SGOT) 20 15-37 U/L Alanine Aminotransferase (ALT/SGPT) 51 12-78 U/L Alkaline Phosphatase 156 45-117 U/L Troponin I < 0.015 0-0.045 ng/ml Total Protein 6.5 6.4-8.2 gm/dl Albumin 3.4 3.4-5.0 gm/dl Lipase 150 73-393 U/L Bedside Troponin I 0.000 0-0.045 ng/ml Diagnostic Radiology 3-way abdominal series: IMPRESSION: 1. Advanced emphysema and chronic parenchyma changes as above with no acute cardiopulmonary abnormality. There has been no significant change from the study performed earlier the same day. 2. Moderate to severe constipation. EKG EKG: NSR, no ST changes Impression Assessment and Plan 56yo male with severe COPD and h/o lung cancer, currently in remission - with recent hospital stay for COPD exacerbation due to influenza A infection - presenting with ongoing abdominal pain and severe constipation. 1. abdominal pain - clinical history and x-rays consistent with severe constipation. Ms. Rosales has had significant problems in the past with constipation, often requiring go-lytely preps and other agents to resolve the issue. We have had to do these preps while he is hospitalized. He has not had a bowel movement in 7-10 days. Will give a fleets enema now, then start a go- lytely prep. I reviewed his most recent CT scan of the abdomen dated October 2016 and at that time he had a punctate right-sided renal stone. Check a u/a, and if there is any suggestion of an active stone, repeat the CT scan. I discussed with Mr. Rosales that narcotic use for his pain will simply worsen and/or perpetuate the constipation issue. With that said will give dilaudid x 1 while receiving the fleets enema. Use zofran prn nausea/emesis. 2. FEN - start clear liquid diet. NS w/ KCL at 100cc/hr. Check mag level now. 3. recent influenza A infection - today is day #5 of tamiflu. 1 more dose of such tonight then d/c. 4. recent COPD exacerbation - finish prednisone taper; finish doxy course. Albuterol nebs q6h. Home inhalers as previous. 5. h/o PUD - continue PPI. 6. DVT proph - lovenox once daily. 7. h/o lung cancer - he achieved remission sometime in the last 2 years. He was being followed closely by pulmonary for this up until recently. Most recent CT with "stable" nodular findings. 8. minimal leukocytosis - likely 2nd to recent steroid use. No fever and lung exam is quite stable at this time. 9. c/o LE paresthesias - check b12 level. It is a chronic issue, but he reports it is worse today. If he continues with this symptom or develops motor symptoms consider imaging of spine. 10. code status - full, level 1. observation status Level of Care Med/Surg Advanced Directives Existing Advance Directive: No Existing Living Will: No Resuscitation Status FULL RESUSCITATION VTE Prophylaxis VTE Risk Assessment Done? Y/N: Yes Risk Level: Low Given or contraindicated: Unfractionated heparin SQ Social Service Consult None Apply Note total time 60 minutes Additional Copies To Isak Zuniga M.D.
[2016-12-06 19:41] VITALS: BP 130/90; PULSE 98; TEMP 36.6; O2SAT 99; Ht 185.4 cm; Wt 73.4 kg
[2016-12-06] MEDS ORDERED: LAVAGE SOLUTION 4000ML PO SCH (20:00)
[2016-12-06] MEDS ORDERED: SOD PHOSPHATE/SOD BIPHOSPHATE ENEMA 132 ML BTL PR ONE (20:00)
[2016-12-06] MEDS: NSS + 20MEQ KCL 1000ML 1,000 ML IV SCH (20:12)
[2016-12-06] MEDS: NYSTATIN SUSP 500,000 U/5 ML UDC PO SCH (20:29)
[2016-12-06] MEDS: DOXYCYCLINE HYCLATE 100 MG CAP PO SCH (20:29)
[2016-12-06] MEDS: TIOTROPIUM BROMIDE 5 PUFF/90 MCG INH INH SCH (20:29)
[2016-12-06] MEDS: ENOXAPARIN 40 MG/0.4 ML SYR SQ SCH (20:29)
[2016-12-06 20:33] VITALS: PULSE 94; O2SAT 96
[2016-12-06] MEDS: ALBUTEROL 0.083% NEBU SOLN 3 ML VIAL INH SCH (20:33)
[2016-12-06] MEDS ORDERED: OSELTAMIVIR PHOSPHATE 75 MG CAP PO SCH (21:00)
[2016-12-06] MEDS: TRAMADOL HCL 50 MG TAB PO PRN (22:13)
[2016-12-06 22:41] LABS: URINE APPEARANCE CLEAR (CLEAR); URINE BILIRUBIN NEG (NEG); URINE COLOR YELLOW; URINE NITRITE NEG (NEG); URINE PH 5.5 (4.5-7.5); URINE SPECIFIC GRAVITY 1.024 (1.000-1.030); UROBILINOGEN NEG (NEG)
[2016-12-06 22:44] LABS: MANUAL MICROSCOPIC REQUIRED? NO; REVIEW REQ? NO
[2016-12-06 23:39] VITALS: BP 102/70; PULSE 104; TEMP 36.8; O2SAT 93
[2016-12-07] VITALS (7 sets, daily range): BP systolic 107–113; BP diastolic 72–75; PULSE 89–100; TEMP 36.5–36.6; O2SAT 90–97
[2016-12-07] MEDS: ONDANSETRON INJ 2 MG/ML 2 ML VIAL IV PRN ×4 (01:17→20:42)
[2016-12-07] MEDS: ALBUTEROL 0.083% NEBU SOLN 3 ML VIAL INH SCH ×4 (02:13→19:45)
[2016-12-07] MEDS: NSS + 20MEQ KCL 1000ML 1,000 ML IV SCH ×2 (06:15→15:06)
[2016-12-07] MEDS: TRAMADOL HCL 50 MG TAB PO PRN ×3 (06:19→20:32)
[2016-12-07] MEDS: NYSTATIN SUSP 500,000 U/5 ML UDC PO SCH ×4 (07:53→20:31)
[2016-12-07] MEDS: CYANOCOBALAMIN 500 MCG TAB (VIT B-12) PO SCH (07:53)
[2016-12-07] MEDS: ATORVASTATIN 20 MG TAB PO SCH (07:53)
[2016-12-07] MEDS: CITALOPRAM 20 MG TAB PO SCH (07:53)
[2016-12-07] MEDS: PANTOprazole SOD 40 MG TAB PO SCH (07:54)
[2016-12-07] MEDS: DOXYCYCLINE HYCLATE 100 MG CAP PO SCH ×2 (07:54→20:31)
--- NOTE | 2016-12-07 09:04 | DIAGNOSTIC IMAGING REPORT ---
ABDOMEN AND PELVIS CT WITHOUT CONTRAST CT DOSE: 505.38 mGy.cm HISTORY: Flank pain calculus TECHNIQUE: Multiaxial CT images of the abdomen and pelvis were performed without contrast. COMPARISON STUDY: 10/16/2016 FINDINGS: Lung bases are clear liver spleen and pancreas are unremarkable. Postoperative changes are noted along the greater curvature the stomach. There is a 2 mm nonobstructing calcification central right kidney. There is no evidence for an obstructing urinary tract calculus. Prior cholecystectomy Bowel pattern is nonobstructive. Appendix is normal. There is an increase in fecal load throughout the colon. There is no significant small bowel distention. IMPRESSION: 1. Increased fecal load throughout the colon. 2. No evidence for an obstructive pattern. 3. Nonobstructing 2 mm calcification central right kidney. 4. No significant change from the prior study of 10/16/2016 Electronically signed by: Balaji Barton M.D. 12/07/2016 9:03 AM Dictated Date/Time: 12/07/2016 8:59 AM
[2016-12-07] MEDS ORDERED: BISACODYL 10 MG SUPP PR STA (18:27)
--- NOTE | 2016-12-07 18:36 | Progress Note ---
Subjective Date of Service: Dec 07, 2016. Subjective Pt evaluation today including: conversation w/ patient, physical exam, chart review, lab review, review of studies (CT abd/pelvis) Pain: abdomen but improved PO Intake: tolerating clears Voiding: no voiding problems Last night, after getting to the medical floor from the ER, he did NOT start the golytely prep. He started the prep at [id number]. Passing flatus but no bowel movement. Had fleets enema last night w/o results. No further nausea/emesis. Denies any pulmonary issues. Problem List Medical Problems: (1) Abdominal pain Status: Acute (2) Abdominal pain Status: Acute (3) Abdominal pain Status: Acute (4) Acute bronchiolitis Status: Acute (5) Acute pulmonary embolism Status: Acute (6) COPD exacerbation Status: Acute (7) COPD exacerbation Status: Acute (8) COPD exacerbation Status: Acute (9) Lung cancer Status: Acute (10) Right sided abdominal pain Status: Acute (11) Vomiting Status: Acute Review of Systems Constitutional: No fever Respiratory: No dyspnea at rest Cardiac: No chest pain, No orthopnea Abdomen: + constipation, + pain (minimal today), + see HPI, No nausea, No vomiting Objective Vital Signs Date Time Temp Pulse Resp B/P Pulse Ox O2 Delivery O2 Flow Rate FiO2 12/07/16 16:11 Room Air 12/07/16 15:19 36.6 100 16 107/72 95 Room Air 12/07/16 14:21 97 18 97 Room Air 12/07/16 08:00 Room Air 12/07/16 07:25 36.6 91 16 111/75 92 12/07/16 07:14 90 18 95 Room Air 12/07/16 02:13 96 18 91 Room Air 12/06/16 23:57 Room Air 12/06/16 23:39 36.8 104 20 102/70 93 Room Air 12/06/16 20:33 94 24 96 Room Air 12/06/16 19:41 36.6 98 22 130/90 99 Room Air 12/06/16 18:42 36.6 98 18 130/90 99 Physical Exam General Appearance: no apparent distress ENT: + pertinent finding (thrush on tongue) Neck: no JVD Respiratory/Chest: lungs clear, no respiratory distress, no accessory muscle use Cardiovascular: no gallop, no murmur, + tachycardia Abdomen: normal bowel sounds (hyperactive), non tender, soft, no organomegaly, + distended (mildly) Extremities: no pedal edema Neurologic/Psychiatric: alert, oriented x 3 Laboratory Results Last 24 Hours Test 12/06/16 19:25 12/06/16 22:00 Vitamin B12 Level 330 pg/mL Urine Color YELLOW Urine Appearance CLEAR Urine pH 5.5 Urine Specific [place] 1.024 Urine Protein NEG Urine Glucose (UA) NEG Urine Ketones 1+ Urine Occult Blood 1+ Urine Nitrite NEG Urine Bilirubin NEG Urine Urobilinogen NEG Urine Leukocyte Esterase NEG Urine WBC (Auto) 1-5 /hpf Urine RBC (Auto) 5-10 /hpf Urine Hyaline Casts (Auto) 1-5 /lpf Urine Epithelial Cells (Auto) 10-20 /lpf Urine Bacteria (Auto) NEG Assessment and Plan 56yo male with severe COPD and h/o lung cancer, currently in remission - with recent hospital stay for COPD exacerbation due to influenza A infection - presenting with ongoing abdominal pain and severe constipation. 1. abdominal pain 2nd to severe constipation - CT and x-rays with severe constipation. Has right-sided 2mm kidney stone but inactive. Continue golytely prep. After he starts to move bowels he will need aggressive bowel regimen. He previously took amitiza. Would recommend this along with miralax/colace/etc. 2. FEN - cont clear liquid diet. NS w/ KCL at 100cc/hr. Lytes stable. Repeat BMP am. 3. recent influenza A infection - finished 5-days of tamiflu. clinically resolved. 4. recent COPD exacerbation - finish prednisone taper; finish doxy course ( doxy finishes tomorrow PM). Albuterol nebs q6h. Home inhalers as previous. 5. h/o PUD - continue PPI. 6. DVT proph - lovenox once daily. 7. h/o lung cancer - he achieved remission sometime in the last 2 years. He was being followed closely by pulmonary for this up until recently. Most recent CT with "stable" nodular findings. He needs to re-establish with pulmonary for routine surveillance. 8. minimal leukocytosis - likely 2nd to recent steroid use. No fever and lung exam is quite stable at this time. 9. c/o LE paresthesias - no complaints of such today. B12 level is low-normal ; supplement orally. 10. code status - full, level 1. observation status can d/c once moving his bowels and pain is resolved hopefully soon Continued [facility] stay due to: multiple IV medications needed, other (severe constipation) Discharge planning: home
[2016-12-07] MEDS: TIOTROPIUM BROMIDE 5 PUFF/90 MCG INH INH SCH (20:31)
[2016-12-07] MEDS: ENOXAPARIN 40 MG/0.4 ML SYR SQ SCH (20:32)
[2016-12-08] VITALS (10 sets, daily range): BP systolic 94–114; BP diastolic 61–80; PULSE 84–97; TEMP 36–36.8; O2SAT 94–100
[2016-12-08] MEDS: NSS + 20MEQ KCL 1000ML 1,000 ML IV SCH ×3 (01:06→19:56)
[2016-12-08] MEDS: TEMAZEPAM 15 MG CAP PO PRN (01:10)
[2016-12-08] MEDS: ALBUTEROL 0.083% NEBU SOLN 3 ML VIAL INH SCH ×4 (02:00→19:24)
[2016-12-08 06:37] LABS: BUN/CREATININE RATIO 9.3 (10-20); CALCIUM 7.7 mg/dl (8.5-10.1); CREATININE 0.85 mg/dl (0.60-1.40); POTASSIUM 3.5 mmol/L (3.5-5.1)
[2016-12-08] MEDS: CITALOPRAM 20 MG TAB PO SCH (07:41)
[2016-12-08] MEDS: ATORVASTATIN 20 MG TAB PO SCH (07:41)
[2016-12-08] MEDS: CYANOCOBALAMIN 500 MCG TAB (VIT B-12) PO SCH (07:41)
[2016-12-08] MEDS: NYSTATIN SUSP 500,000 U/5 ML UDC PO SCH ×4 (07:41→19:53)
[2016-12-08] MEDS: DOXYCYCLINE HYCLATE 100 MG CAP PO SCH ×2 (07:42→19:55)
[2016-12-08] MEDS: PANTOprazole SOD 40 MG TAB PO SCH (07:42)
[2016-12-08] MEDS: TRAMADOL HCL 50 MG TAB PO PRN ×2 (08:19→15:56)
[2016-12-08] MEDS: ONDANSETRON INJ 2 MG/ML 2 ML VIAL IV PRN ×2 (08:19→15:56)
[2016-12-08] MEDS: METHYLNALTREXONE BROMIDE INJ 12 MG/0.6 ML SYR SQ SCH (10:52)
[2016-12-08] MEDS: LACTULOSE SYRUP 30 GM/45 ML UDP PO PRN ×2 (11:38→15:56)
--- NOTE | 2016-12-08 16:09 | Progress Note ---
Subjective Date of Service: Dec 08, 2016. Subjective Pt evaluation today including: conversation w/ patient, physical exam, lab review, review of studies, review of inpatient medication list Pain: right sided abdominal pain, mild PO Intake: poor appetite, nausea Voiding: no voiding problems patient completed the prep yesterday, has suppository last night had some liquid brown stool but no solid BM, still with right sided pain discussed the importance of trying to get bowels to move prior to discharge, he was in agreement Problem List Medical Problems: (1) Abdominal pain Status: Acute (2) Abdominal pain Status: Acute (3) Abdominal pain Status: Acute (4) Acute bronchiolitis Status: Acute (5) Acute pulmonary embolism Status: Acute (6) COPD exacerbation Status: Acute (7) COPD exacerbation Status: Acute (8) COPD exacerbation Status: Acute (9) Lung cancer Status: Acute (10) Right sided abdominal pain Status: Acute (11) Vomiting Status: Acute Review of Systems Abdomen: + constipation, + nausea, + pain, No GI bleeding, No diarrhea, No vomiting All Other Systems: Reviewed and Negative Medications Current Inpatient Medications Medications (Trade) Dose Ordered Sig/Dae Route Start Time Stop Time Status Last Admin Dose Admin Enoxaparin Sodium (Lovenox Inj) 40 mg Q24H SQ 12/06/16 21:00 01/05/17 20:59 12/07/16 20:32 40 MG Acetaminophen (Tylenol Tab) 650 mg Q4H PRN PO 12/06/16 17:30 01/05/17 17:29 Ondansetron HCl (Zofran Inj) 4 mg Q6H PRN IV 12/06/16 17:30 01/05/17 17:29 12/08/16 08:19 4 MG Albuterol Sulfate (Ventolin 0.083% 2.5MG/3ML Neb) 2.5 mg Q6R INH 12/06/16 21:00 01/05/17 20:59 12/08/16 14:15 2.5 MG Atorvastatin Calcium (Lipitor Tab) 20 mg QAM PO 12/07/16 09:00 01/06/17 08:59 12/08/16 07:41 20 MG Citalopram Hydrobromide (celeXA TAB) 20 mg QAM PO 12/07/16 09:00 01/06/17 08:59 12/08/16 07:41 20 MG Doxycycline Hyclate (Vibramycin Cap) 100 mg BID PO 12/06/16 21:00 12/13/16 20:59 12/08/16 07:42 100 MG Albuterol/ Ipratropium (Combivent Respimat Inh) 1 puffs QID PRN INH 12/06/16 17:30 01/05/17 17:29 Nystatin (Mycostatin Susp) 5 ml QID PO 12/06/16 21:00 12/16/16 20:59 12/08/16 11:37 5 ML Pantoprazole Sodium (Protonix Tab) 40 mg QAM PO 12/07/16 09:00 01/06/17 08:59 12/08/16 07:42 40 MG Temazepam (Restoril Cap) 30 mg HS PRN PO 12/06/16 17:30 01/05/17 17:29 12/08/16 01:10 30 MG Tiotropium [place] (Spiriva Handihaler Inhaler) 1 puff QPM INH 12/06/16 21:00 01/05/17 20:59 12/07/16 20:31 1 PUFF Miscellaneous Information 1 ea 1 ea QS N/A 12/07/16 00:00 01/06/17 00:00 Potassium Chloride/Sodium Chloride (Nss + 20meq KCl 1000ml) 1,000 ml @ 100 mls/hr Q10H IV 12/06/16 19:30 01/05/17 17:59 12/08/16 10:55 100 MLS/HR Miscellaneous (Iv Fluids Completed) 1 ea PRN PRN N/A 12/06/16 18:15 12/06/17 18:14 Prednisone (PredniSONE TAB) 30 mg Taper DAILY PO 12/08/16 09:00 01/09/17 08:59 12/08/16 07:41 30 MG Heparin Sodium (Porcine) (Heparin 100 Unit/ml 5ml Flush) 5 ml PRN PRN IV 12/06/16 19:45 01/05/17 19:44 Tramadol HCl (Ultram Tab) 100 mg Q6H PRN PO 12/06/16 20:30 01/05/17 20:29 12/08/16 08:19 100 MG Cyanocobalamin (Vitamin B-12 Tab) 1,000 mcg QAM PO 12/07/16 09:00 01/06/17 08:59 12/08/16 07:41 1,000 MCG Methylnaltrexone [place] (Relistor Inj) 12 mg Q2D@0900 SQ 12/08/16 10:00 01/07/17 09:59 12/08/16 10:52 12 MG Lactulose (Chronulac Syrup) 30 gm Q4H PRN PO 12/08/16 09:15 01/07/17 09:14 12/08/16 11:38 30 GM Objective Vital Signs Date Time Temp Pulse Resp B/P Pulse Ox O2 Delivery O2 Flow Rate FiO2 12/08/16 15:24 36.5 84 18 103/77 94 Room Air 12/08/16 14:15 92 14 94 Room Air 12/08/16 08:00 94 Room Air 12/08/16 07:35 90 18 94 Room Air 12/08/16 07:16 36.0 88 16 94/61 100 Room Air 12/08/16 02:00 90 18 94 Room Air 12/07/16 23:47 Room Air 12/07/16 23:46 36.5 89 20 113/73 95 Room Air 12/07/16 20:17 Room Air 12/07/16 19:45 95 18 90 Room Air 12/07/16 16:11 Room Air Physical Exam General Appearance: WD/WN, no apparent distress Eyes: normal inspection, EOMI, sclerae normal ENT: normal ENT inspection, hearing grossly normal, pharynx normal Neck: supple, no adenopathy, no JVD, trachea midline Respiratory/Chest: chest non-tender, lungs clear, normal breath sounds, no respiratory distress, no accessory muscle use Cardiovascular: regular rate, rhythm, no edema, no gallop, no JVD, no murmur Abdomen: soft, no organomegaly, + abnormal bowel sounds (hyperactive), + tenderness (RLQ), + pertinent finding (dull to percussion in LLQ, increased tympani otherwise) Extremities: normal range of motion, non-tender, normal inspection, no pedal edema, no calf tenderness Neurologic/Psychiatric: food tray assembler II-XII nml as tested, no motor/sensory deficits, alert, normal mood/affect, oriented x 3 Skin: normal color, warm/dry, no rash Lymphatic: no adenopathy Laboratory Results Last 24 Hours Test 3/6/17 05:35 Sodium Level 146 mmol/L Potassium Level 3.5 mmol/L Chloride Level 109 mmol/L Carbon Dioxide Level 27 mmol/L Anion Gap 10.0 mmol/L Blood Urea Nitrogen 8 mg/dl Creatinine 0.85 mg/dl Est Creatinine Clear Calc Drug Dose 100.7 ml/min Estimated GFR () 112.9 Estimated GFR (Non- 97.4 BUN/Creatinine Ratio 9.3 Random Glucose 63 mg/dl Calcium Level 7.7 mg/dl Assessment and Plan 56yo male with severe COPD and h/o lung cancer, currently in remission - with recent hospital stay for COPD exacerbation due to influenza A infection - presenting with ongoing abdominal pain and severe constipation. 1. abdominal pain 2nd to severe constipation - CT and x-rays with severe constipation. Has right-sided 2mm kidney stone but inactive. no success with GoLytely and enema and suppository, just some brown liquid stool, likely going around solid stool will give Relistor today and start Lactulose 30mg q4 until he has a solid BM 2. FEN - cont clear liquid diet. NS w/ KCL at 100cc/hr. Lytes stable. Repeat BMP am. 3. recent influenza A infection - finished 5-days of tamiflu. clinically resolved. 4. recent COPD exacerbation - finish prednisone taper; finish doxy course ( doxy finishes tomorrow PM). Albuterol nebs q6h. Home inhalers as previous. 5. h/o PUD - continue PPI. 6. DVT proph - lovenox once daily. 7. h/o lung cancer - he achieved remission sometime in the last 2 years. He was being followed closely by pulmonary for this up until recently. Most recent CT with "stable" nodular findings. He needs to re-establish with pulmonary for routine surveillance. 8. minimal leukocytosis - likely 2nd to recent steroid use. No fever and lung exam is quite stable at this time. 9. c/o LE paresthesias - no complaints of such today. B12 level is low-normal ; supplement orally. 10. code status - full, level 1. observation status can d/c once moving his bowels and pain is resolved hopefully soon Continued [facility] stay due to: multiple IV medications needed, other (severe constipation) Discharge planning: home
[2016-12-08] MEDS: TIOTROPIUM BROMIDE 5 PUFF/90 MCG INH INH SCH (19:52)
[2016-12-08] MEDS: ENOXAPARIN 40 MG/0.4 ML SYR SQ SCH (19:54)
[2016-12-09] VITALS (9 sets, daily range): BP systolic 95–116; BP diastolic 60–70; PULSE 85–105; TEMP 36.6–36.8; O2SAT 92–95
[2016-12-09] MEDS: TEMAZEPAM 15 MG CAP PO PRN (00:02)
[2016-12-09] MEDS: TRAMADOL HCL 50 MG TAB PO PRN ×4 (00:03→20:44)
[2016-12-09] MEDS: ONDANSETRON INJ 2 MG/ML 2 ML VIAL IV PRN ×3 (00:04→20:44)
[2016-12-09] MEDS: LACTULOSE SYRUP 30 GM/45 ML UDP PO PRN ×3 (00:53→08:57)
[2016-12-09] MEDS: ALBUTEROL 0.083% NEBU SOLN 3 ML VIAL INH SCH ×4 (02:07→19:30)
[2016-12-09 06:09] LABS: HEMATOCRIT 44.3 % (42-52); MEAN CELL VOLUME 88.4 fL (80-100); MEAN CORPUSCULAR HEMOGLOBIN 28.7 pg (25-34); MEAN CORPUSCULAR HGB CONC 32.5 g/dl (32-36); MEAN PLATELET VOLUME 9.1 fL (7.4-10.4); PLATELET COUNT 219 K/uL (130-400); RED BLOOD COUNT 5.01 M/uL (4.7-6.1); WHITE BLOOD COUNT 6.42 K/uL (4.8-10.8)
[2016-12-09 06:43] LABS: CREATININE 0.88 mg/dl (0.60-1.40)
[2016-12-09] MEDS: NSS + 20MEQ KCL 1000ML 1,000 ML IV SCH (06:54)
[2016-12-09] MEDS: ATORVASTATIN 20 MG TAB PO SCH (08:53)
[2016-12-09] MEDS: CITALOPRAM 20 MG TAB PO SCH (08:53)
[2016-12-09] MEDS: NYSTATIN SUSP 500,000 U/5 ML UDC PO SCH ×4 (08:53→20:51)
[2016-12-09] MEDS: DOXYCYCLINE HYCLATE 100 MG CAP PO SCH ×2 (08:54→20:51)
[2016-12-09] MEDS: PANTOprazole SOD 40 MG TAB PO SCH (08:54)
[2016-12-09] MEDS: CYANOCOBALAMIN 500 MCG TAB (VIT B-12) PO SCH (08:54)
--- NOTE | 2016-12-09 08:56 | Clinical Documentation Query ---
MANUELA Johnson : CLINICAL DOCUMENTATION QUERY Patient a 56 year old male admitted for evaluation and treatment of abdominal pain secondary to severe constipation. Patient was recently admitted for COPD exacerbation in the setting of influenza, and for somatic complaints recieved multiple doses of IV Morphine and Dilaudid. Returns on this admission for above stated complaint and is currently undergoing an agressive bowel regimen. As appropriate, consider clarification as suggested below as this impacts code assignment. Thank you. In your clinical opinion is this patient being managed for: ( ) Opiod induced constipation ( ) Other explanation of clinical findings (Please Explain) ( x ) Unable to determine (Please Define) Patient had constipation in the past when he was on chronic narcotics. Unsure if several recent doses of narcotics would have triggered this constipation. ( ) Need to Discuss ( ) Not Agree The medical record reflects the following clinical findings, treatment, and risk factors. Clinical Indicators: As above Treatment: Golytely bowel prep, enema, Relistor, Lactulose Risk Factors: Opiod use, physical inactivity Please clarify and document your clinical opinion in the progress notes and discharge summary. Terms such as "probable", "suspected", "likely", "questionable", "possible", or "still to be ruled out" are acceptable. IF IN AGREEMENT, YOU MUST DOCUMENT ABOVE DIAGNOSTIC STATEMENT IN DAILY PROGRESS NOTES AND DISCHARGE SUMMARY. This document is not part of the patient's record. Thank You, Hernando Nguyen RN [phone]
--- NOTE | 2016-12-09 13:57 | Gastrointestinal Consultation ---
Gastrointestinal Consultation Date of Consultation: Dec 09, 2016 Attending Physician: Dr. Koehler Consulting Physician: Dr. Stroud Reason for Consultation: constipation History of Present Illness Patient is a 56 year old male with hx of NSCL Ca in remission, severe COPD, chronic pain syndrome and prior narcotic use with severe constipation for which GI has been consulted. He is a patient of Dr. Sunny Chu. Pt recently admitted with influenza/COPD exacerbation. He was discharged approx. 4 days ago and admitted he lied to his providers and said he moved his bowels prior to discharge when in fact he did not. He went home and had increased abdominal pain and constipation requiring re-admission. Pt notes he was previously on Amitiza and miralax as an out patient when he was on his chronic narcotics but his bowel regimen was discontinued when his narcotics were stopped. Last colonoscopy 07/2016 was normal except adenomatous polyp, small internal hemorrhoids and melanosis. EGD 02/2016 revealed monilial esophagitis and gastritis. ED work up revealed moderate to severe constipation on abd film and CT A/P revealed increased fecal load in the colon but no obstruction. Labs show no acute etiologies. WBC mildly elevated but he's on chronic steroids. His bowel regimen this admission consisted of Relistor injection x1, golytely prep, fleets enema, lactulose 30g q6 hours x approx 6 doses - he has had about 6 liquid brown stool yesterday and some liquid stool today but no solid BM. Past Medical/Surgical History Medical Problems: (1) Abdominal pain Status: Acute (2) Abdominal pain Status: Acute (3) Abdominal pain Status: Acute (4) Acute bronchiolitis Status: Acute (5) Acute pulmonary embolism Status: Acute (6) COPD exacerbation Status: Acute (7) COPD exacerbation Status: Acute (8) COPD exacerbation Status: Acute (9) Lung cancer Status: Acute (10) Right sided abdominal pain Status: Acute (11) Vomiting Status: Acute Past Medical History: severe COPD hx lung CA (reports stage IV in remission) chronic constipation chronic pain syndrome with hx narcotics in past (none recently) PUD esophagitis chronic steroid use hyperlipidemia Past Surgical History: port placement hx PEG placement and removal cholecystectomy closure of abdominal wall fistula at site of prior PEG Family History Cancer Diabetes mellitus Gallbladder disease Heart disease Hypertension Kidney stones Social History Smoking Status: Former Smoker Alcohol Use: none Drug Use: none Marital Status: single Housing Status: lives alone Occupation Status: unemployed Allergies Coded Allergies: No Known Allergies (Verified , 07/28/16) Current Medications Home Meds and Scripts Medications Dose Route/Sig Max Daily Dose Days Date Category Dose Instructions Tamiflu (Oseltamivir Phosphate) 75 Mg Cap 75 Mg PO BID 12/05/16 Rx Nystatin 5 Ml Susp 5 Ml PO QID 3 12/05/16 Rx Doxycycline Hyclate 100 Mg Cap 100 Mg PO BID 12/05/16 Rx Prednisone 10 Mg Tab 10 Mg PO UD 30 12/05/16 Rx 5 tabs x 1 day 4 tabs x 1 day 3 tabs x 1 day 2 tabs x 1 day then resume 1 tab daily Proventil 0.083% 2.5MG/3ML (Albuterol Sulf) 2.5 Mg/3 Ml Nebu 3 Ml NEB Q4-6HRS PRN 12/01/16 Reported Pantoprazole Sodium (Pantoprazole) 40 Mg Tab 40 Mg PO QAM 12/01/16 Reported Restoril (Temazepam) 30 Mg Cap 30 Mg PO HS PRN 07/16/16 Reported Spiriva Handihaler (Tiotropium [place]) 30 Puff/540 Mcg Aerp 1 Cap INH QPM 07/16/16 Reported Combivent Respimat (Ipratropium-Albuterol) 1 Aer Aer 1 Puff INH QID PRN 07/16/16 Reported Atorvastatin Calcium (Atorvastatin) 20 Mg Tab 20 Mg PO QAM 01/12/16 Reported Dulera 200/5 Mcg (Mometasone Furoate-Formoterol) 1 Aer Aer 2 Puffs INH BID 02/19/15 Reported Citalopram Hydrobromide (Citalopram) 20 Mg Tab 20 Mg PO QAM 10/12/14 Reported Review of Systems Constitutional: No chills, No fever Eyes: No problem reported ENT: No hearing loss, No pain on swallowing, No trouble swallowing Respiratory: + see HPI (severe COPD, recent exacerbation, on chronic steroids) Cardiac: No chest pain Abdomen: + see HPI Musculoskeletal: + problem reported (chronic pain syndrome) Male : No dysuria Neuro: No problem reported Psych: No depression symptoms Heme: No abnormal bleeding/bruising Endo: No fatigue Skin: No rash Physical Exam Date Time Temp Pulse Resp B/P Pulse Ox O2 Delivery O2 Flow Rate FiO2 12/09/16 08:00 93 Room Air 12/09/16 07:47 36.6 85 16 95/60 93 Room Air 12/09/16 07:14 91 16 95 Room Air 12/09/16 02:07 103 16 94 Room Air 12/09/16 00:00 95 Room Air 12/08/16 23:59 36.8 93 18 114/80 95 Room Air 12/08/16 20:00 95 Room Air 12/08/16 19:25 97 16 94 Room Air 12/08/16 16:00 94 Room Air 12/08/16 15:24 36.5 84 18 103/77 94 Room Air 12/08/16 14:15 92 14 94 Room Air General Appearance: WD/WN, no apparent distress (Pt ambulate halls at time of exam) Eyes: normal inspection ENT: hearing grossly normal Neck: supple Respiratory/Chest: + pertinent finding (decreased breath sounds in bases bilaterally, no wheezing or crackles noted) Cardiovascular: regular rate, rhythm Abdomen: normal bowel sounds, soft (mild tenderness (diffuse) without rebound or guarding, no significant distention) Extremities: normal inspection, no pedal edema Neurologic/Psych: alert, oriented x 3 Skin: normal color, no rash Laboratory Results Last 24 Hours Test 12/09/16 05:15 White Blood Count 6.42 K/uL Red Blood Count 5.01 M/uL Hemoglobin 14.4 g/dL Hematocrit 44.3 % Mean Corpuscular Volume 88.4 fL Mean Corpuscular Hemoglobin 28.7 pg Mean Corpuscular Hemoglobin Concent 32.5 g/dl RDW Standard Deviation 54.5 fL RDW Coefficient of Variation 16.7 % Platelet Count 219 K/uL Mean Platelet Volume 9.1 fL Creatinine 0.88 mg/dl Est Creatinine Clear Calc Drug Dose 97.3 ml/min Estimated GFR () 111.3 Estimated GFR (Non- 96.0 Impression Patient is a 56 year old male with hx of lung cancer in remission, chronic pain syndrome and past narcotic use with acute on chronic constipation Plan Agree with aggressive bowel regimen - will need to continue as an outpatient will change lactulose to Miralax BID - may increase dose of miralax as needed restart Amitiza 24mcg PO BID recheck KUB in AM ATTESTATION: I have performed a history and physical examination of this patient and reviewed the electronic record. Specifically, on physical examination there is mild abdominal tenderness. I have discussed the case with Luz Grijalva PA-C. The above note reflects my findings, conclusions, and recommendations. Bon Stroud MD
--- NOTE | 2016-12-09 15:21 | Progress Note ---
Subjective Date of Service: Dec 09, 2016. Subjective Pt evaluation today including: conversation w/ patient, physical exam, conversation w/ retail consultant, review of inpatient medication list Pain: continued right LQ pain, mild PO Intake: poor due to nausea Voiding: no voiding problems had some liquid brown stools but no solid BM still with right LQ pain appreciated GI consultation, plan to use Miralax and Amitiza patient still with nausea, poor appetite Problem List Medical Problems: (1) Abdominal pain Status: Acute (2) Abdominal pain Status: Acute (3) Abdominal pain Status: Acute (4) Acute bronchiolitis Status: Acute (5) Acute pulmonary embolism Status: Acute (6) COPD exacerbation Status: Acute (7) COPD exacerbation Status: Acute (8) COPD exacerbation Status: Acute (9) Lung cancer Status: Acute (10) Right sided abdominal pain Status: Acute (11) Vomiting Status: Acute Review of Systems Abdomen: + constipation (loose brown stools but no solid BM), + pain All Other Systems: Reviewed and Negative Medications Current Inpatient Medications Medications (Trade) Dose Ordered Sig/Dae Route Start Time Stop Time Status Last Admin Dose Admin Enoxaparin Sodium (Lovenox Inj) 40 mg Q24H SQ 12/06/16 21:00 01/05/17 20:59 12/08/16 19:54 40 MG Acetaminophen (Tylenol Tab) 650 mg Q4H PRN PO 12/06/16 17:30 01/05/17 17:29 Ondansetron HCl (Zofran Inj) 4 mg Q6H PRN IV 12/06/16 17:30 01/05/17 17:29 12/09/16 13:20 4 MG Albuterol Sulfate (Ventolin 0.083% 2.5MG/3ML Neb) 2.5 mg Q6R INH 12/06/16 21:00 01/05/17 20:59 12/09/16 14:20 2.5 MG Atorvastatin Calcium (Lipitor Tab) 20 mg QAM PO 12/07/16 09:00 01/06/17 08:59 12/09/16 08:53 20 MG Citalopram Hydrobromide (celeXA TAB) 20 mg QAM PO 12/07/16 09:00 01/06/17 08:59 12/09/16 08:53 20 MG Doxycycline Hyclate (Vibramycin Cap) 100 mg BID PO 12/06/16 21:00 12/13/16 20:59 12/09/16 08:54 100 MG Albuterol/ Ipratropium (Combivent Respimat Inh) 1 puffs QID PRN INH 12/06/16 17:30 01/05/17 17:29 Nystatin (Mycostatin Susp) 5 ml QID PO 12/06/16 21:00 12/16/16 20:59 12/09/16 13:20 5 ML Pantoprazole Sodium (Protonix Tab) 40 mg QAM PO 12/07/16 09:00 01/06/17 08:59 12/09/16 08:54 40 MG Temazepam (Restoril Cap) 30 mg HS PRN PO 12/06/16 17:30 01/05/17 17:29 12/09/16 00:02 30 MG Tiotropium [place] (Spiriva Handihaler Inhaler) 1 puff QPM INH 12/06/16 21:00 01/05/17 20:59 12/08/16 19:52 1 PUFF Miscellaneous Information (Order Awaiting Action) 1 ea QS N/A 12/07/16 00:00 01/06/17 00:00 Miscellaneous (Iv Fluids Completed) 1 ea PRN PRN N/A 12/06/16 18:15 12/06/17 18:14 Prednisone (PredniSONE TAB) 20 mg Taper DAILY PO 12/08/16 09:00 01/09/17 08:59 12/09/16 08:53 20 MG Heparin Sodium (Porcine) (Heparin 100 Unit/ml 5ml Flush) 5 ml PRN PRN IV 12/06/16 19:45 01/05/17 19:44 12/09/16 13:24 5 ML Tramadol HCl (Ultram Tab) 100 mg Q6H PRN PO 12/06/16 20:30 01/05/17 20:29 12/09/16 13:20 100 MG Cyanocobalamin (Vitamin B-12 Tab) 1,000 mcg QAM PO 12/07/16 09:00 01/06/17 08:59 12/09/16 08:54 1,000 MCG Methylnaltrexone [place] (Relistor Inj) 12 mg Q2D@0900 SQ 12/08/16 10:00 01/07/17 09:59 12/08/16 10:52 12 MG Polyethylene (Miralax Powder Packet) 17 gm BID PO 12/09/16 21:00 01/08/17 20:59 Objective Vital Signs Date Time Temp Pulse Resp B/P Pulse Ox O2 Delivery O2 Flow Rate FiO2 12/09/16 14:20 91 16 95 Room Air 12/09/16 08:00 93 Room Air 12/09/16 07:47 36.6 85 16 95/60 93 Room Air 12/09/16 07:14 91 16 95 Room Air 12/09/16 02:07 103 16 94 Room Air 12/09/16 00:00 95 Room Air 12/08/16 23:59 36.8 93 18 114/80 95 Room Air 12/08/16 20:00 95 Room Air 12/08/16 19:25 97 16 94 Room Air 12/08/16 16:00 94 Room Air 12/08/16 15:24 36.5 84 18 103/77 94 Room Air Physical Exam General Appearance: no apparent distress, + thin Eyes: normal inspection, EOMI, sclerae normal ENT: normal ENT inspection, hearing grossly normal, pharynx normal Neck: supple, no adenopathy, no JVD, trachea midline Respiratory/Chest: chest non-tender, lungs clear, normal breath sounds, no respiratory distress, no accessory muscle use Cardiovascular: regular rate, rhythm, no edema, no gallop, no JVD, no murmur Abdomen: normal bowel sounds, soft, + distended, + tenderness (RLQ), + pertinent finding (dull to percussion) Extremities: normal range of motion, non-tender, normal inspection, no pedal edema, no calf tenderness Neurologic/Psychiatric: inserter operator II-XII nml as tested, no motor/sensory deficits, alert, normal mood/affect, oriented x 3 Skin: normal color, warm/dry, no rash Lymphatic: no adenopathy Laboratory Results Last 24 Hours Test 12/09/16 05:15 White Blood Count 6.42 K/uL Red Blood Count 5.01 M/uL Hemoglobin 14.4 g/dL Hematocrit 44.3 % Mean Corpuscular Volume 88.4 fL Mean Corpuscular Hemoglobin 28.7 pg Mean Corpuscular Hemoglobin Concent 32.5 g/dl RDW Standard Deviation 54.5 fL RDW Coefficient of Variation 16.7 % Platelet Count 219 K/uL Mean Platelet Volume 9.1 fL Creatinine 0.88 mg/dl Est Creatinine Clear Calc Drug Dose 97.3 ml/min Estimated GFR () 111.3 Estimated GFR (Non- 96.0 Assessment and Plan 56yo male with severe COPD and h/o lung cancer, currently in remission - with recent hospital stay for COPD exacerbation due to influenza A infection - presenting with ongoing abdominal pain and severe constipation. 1. abdominal pain 2nd to severe constipation - CT and x-rays with severe constipation. Has right-sided 2mm kidney stone but inactive. has a h/o constipation when on chronic narcotics, unsure if this episode of constipation is due to recent IV narcotics on prior admission no success with GoLytely and enema and suppository, gave Relistor yesterday and Lactulose 30mg, 6 doses, still no solid BM, just some brown stool appreciate GI consultation, will change to Miralax BID and Amitiza check KUB in the AM to home once he moves bowels 2. FEN - cont clear liquid diet. stop fluids today, received 7 bags total, don 't want to volume overload 3. recent influenza A infection - finished 5-days of tamiflu. clinically resolved. 4. recent COPD exacerbation - finish prednisone taper; finish doxy course ( doxy finishes today). Albuterol nebs q6h. Home inhalers as previous. 5. h/o PUD - continue PPI. 6. DVT proph - lovenox once daily. 7. h/o lung cancer - he achieved remission sometime in the last 2 years. He was being followed closely by pulmonary for this up until recently. Most recent CT with "stable" nodular findings. He needs to re-establish with pulmonary for routine surveillance. 8. minimal leukocytosis - likely 2nd to recent steroid use. No fever and lung exam is quite stable at this time. 9. c/o LE paresthesias - no complaints of such today. B12 level is low-normal ; supplement orally. 10. code status - full, level 1. changed to full admission to home once he moves his bowels Continued [facility] stay due to: multiple IV medications needed, other (severe constipation) Discharge planning: home
[2016-12-09] MEDS: LUBIPROSTONE 8 MCG CAP PO SCH (20:50)
[2016-12-09] MEDS: POLYETHYLENE (MIRALAX) 17 GM PACK PO SCH (20:50)
[2016-12-09] MEDS: ENOXAPARIN 40 MG/0.4 ML SYR SQ SCH (20:51)
[2016-12-09] MEDS: TIOTROPIUM BROMIDE 5 PUFF/90 MCG INH INH SCH (21:04)
[2016-12-10] MEDS: TEMAZEPAM 15 MG CAP PO PRN (00:35)
[2016-12-10 02:15] VITALS: PULSE 96; O2SAT 94
[2016-12-10] MEDS: ALBUTEROL 0.083% NEBU SOLN 3 ML VIAL INH SCH ×3 (02:15→14:13)
[2016-12-10] MEDS: ONDANSETRON INJ 2 MG/ML 2 ML VIAL IV PRN ×2 (03:16→08:33)
[2016-12-10] MEDS: TRAMADOL HCL 50 MG TAB PO PRN ×2 (03:16→08:34)
[2016-12-10 07:09] VITALS: PULSE 82; O2SAT 96
[2016-12-10 07:21] VITALS: BP 92/64; PULSE 93; TEMP 36.6; O2SAT 95
[2016-12-10 08:00] VITALS: O2SAT 95
[2016-12-10] MEDS: LUBIPROSTONE 8 MCG CAP PO SCH (08:35)
[2016-12-10] MEDS: PANTOprazole SOD 40 MG TAB PO SCH (08:36)
[2016-12-10] MEDS: POLYETHYLENE (MIRALAX) 17 GM PACK PO SCH (08:36)
[2016-12-10] MEDS: CITALOPRAM 20 MG TAB PO SCH (08:36)
[2016-12-10] MEDS: DOXYCYCLINE HYCLATE 100 MG CAP PO SCH (08:36)
[2016-12-10] MEDS: ATORVASTATIN 20 MG TAB PO SCH (08:36)
[2016-12-10] MEDS: CYANOCOBALAMIN 500 MCG TAB (VIT B-12) PO SCH (08:36)
[2016-12-10] MEDS: NYSTATIN SUSP 500,000 U/5 ML UDC PO SCH (08:36)
[2016-12-10] MEDS: METHYLNALTREXONE BROMIDE INJ 12 MG/0.6 ML SYR SQ SCH (08:37)
--- NOTE | 2016-12-10 10:55 | DIAGNOSTIC IMAGING REPORT ---
KUB CLINICAL HISTORY: constipation, increased fecal load pain. Nausea. COMPARISON STUDY: 12/06/2016 FINDINGS: Improved fecal load. Bowel pattern is nonobstructive. No evidence for fecal impaction. IMPRESSION: Improved study with no abnormal fecal load at this time Electronically signed by: Balaji Barton M.D. 12/10/2016 10:54 AM Dictated Date/Time: 12/10/2016 10:53 AM
--- NOTE | 2016-12-10 11:49 | Gastroenterology Progress Note ---
Progress Note Date of Service: Dec 10, 2016 Subjective Pt evaluation today including: conversation w/ patient, physical exam, chart review, lab review 56yo being followed for constipation, continuing with miralax and Amitiza restarted last night. No new events overnight, still having liquid brown stool , no solids. Pt resting comfortably, only c/o abdominal soreness, no pain. Tolerating PO. KUB this AM compared to 12/06 shows improvement with no abnormal fecal load Review of Systems Constitutional: No chills, No fever Eyes: No problem reported ENT: No hearing loss Cardiac: No chest pain Abdomen: + see HPI Male : No problem reported Neuro: No problem reported Psych: No problem reported Skin: No rash Medications Current Inpatient Medications Medications (Trade) Dose Ordered Sig/Dae Route Start Time Stop Time Status Last Admin Dose Admin Enoxaparin Sodium (Lovenox Inj) 40 mg Q24H SQ 12/06/16 21:00 01/05/17 20:59 12/09/16 20:51 40 MG Acetaminophen (Tylenol Tab) 650 mg Q4H PRN PO 12/06/16 17:30 01/05/17 17:29 Ondansetron HCl (Zofran Inj) 4 mg Q6H PRN IV 12/06/16 17:30 01/05/17 17:29 12/10/16 08:33 4 MG Albuterol Sulfate (Ventolin 0.083% 2.5MG/3ML Neb) 2.5 mg Q6R INH 12/06/16 21:00 01/05/17 20:59 12/10/16 07:09 2.5 MG Atorvastatin Calcium (Lipitor Tab) 20 mg QAM PO 12/07/16 09:00 01/06/17 08:59 12/10/16 08:36 20 MG Citalopram Hydrobromide (celeXA TAB) 20 mg QAM PO 12/07/16 09:00 01/06/17 08:59 12/10/16 08:36 20 MG Doxycycline Hyclate (Vibramycin Cap) 100 mg BID PO 12/06/16 21:00 12/13/16 20:59 12/10/16 08:36 100 MG Albuterol/ Ipratropium (Combivent Respimat Inh) 1 puffs QID PRN INH 12/06/16 17:30 01/05/17 17:29 Nystatin (Mycostatin Susp) 5 ml QID PO 12/06/16 21:00 12/16/16 20:59 12/10/16 08:36 5 ML Pantoprazole Sodium (Protonix Tab) 40 mg QAM PO 12/07/16 09:00 01/06/17 08:59 12/10/16 08:36 40 MG Temazepam (Restoril Cap) 30 mg HS PRN PO 12/06/16 17:30 01/05/17 17:29 12/10/16 00:35 30 MG Tiotropium [place] (Spiriva Handihaler Inhaler) 1 puff QPM INH 12/06/16 21:00 01/05/17 20:59 12/09/16 21:04 1 PUFF Miscellaneous Information (Order Awaiting Action) 1 ea QS N/A 12/07/16 00:00 01/06/17 00:00 Miscellaneous (Iv Fluids Completed) 1 ea PRN PRN N/A 12/06/16 18:15 12/06/17 18:14 Prednisone (PredniSONE TAB) 10 mg Taper DAILY PO 12/08/16 09:00 01/09/17 08:59 12/10/16 08:36 10 MG Heparin Sodium (Porcine) (Heparin 100 Unit/ml 5ml Flush) 5 ml PRN PRN IV 12/06/16 19:45 01/05/17 19:44 12/10/16 08:03 5 ML Tramadol HCl (Ultram Tab) 100 mg Q6H PRN PO 12/06/16 20:30 01/05/17 20:29 12/10/16 08:34 100 MG Cyanocobalamin (Vitamin B-12 Tab) 1,000 mcg QAM PO 12/07/16 09:00 01/06/17 08:59 12/10/16 08:36 1,000 MCG Methylnaltrexone [place] (Relistor Inj) 12 mg Q2D@0900 SQ 12/08/16 10:00 01/07/17 09:59 12/10/16 08:37 12 MG Polyethylene (Miralax Powder Packet) 17 gm BID PO 12/09/16 21:00 01/08/17 20:59 12/10/16 08:36 17 GM [place] (Amitiza) 24 mcg BID PO 12/09/16 21:00 01/08/17 20:59 12/10/16 08:35 24 MCG Objective Vital Signs Date Time Temp Pulse Resp B/P Pulse Ox O2 Delivery O2 Flow Rate FiO2 12/10/16 07:21 36.6 93 16 92/64 95 Room Air 12/10/16 07:09 82 16 96 Room Air 12/10/16 02:15 96 16 94 Room Air 12/10/16 00:00 Room Air 12/09/16 23:58 36.7 101 20 116/65 92 Room Air 12/09/16 20:00 Room Air 12/09/16 19:32 95 16 95 Room Air 12/09/16 15:33 36.8 105 16 98/70 93 Room Air 12/09/16 14:20 91 16 95 Room Air Physical Exam General Appearance: WD/WN, no apparent distress Eyes: normal inspection ENT: hearing grossly normal Respiratory/Chest: normal breath sounds, no respiratory distress Cardiovascular: regular rate, rhythm Abdomen: normal bowel sounds, non tender, soft (no significant tenderness, no rebound or guarding noted) Extremities: no pedal edema Neurologic/Psych: alert, normal mood/affect, oriented x 3 Assessment and Plan 56yo with acute on chronic constipation - seems to be improving, KUB improved. likely exacerbated by stopping bowel regimen after his narcotic pain meds were stopped. continue aggressive bowel regimen as out patient: Amitiza 24mcg BID, Miralax BID - may increase dose as needed. encourage ambulation and hydration. FU with GI PRN as out patient. GI will sign off, please call with questions.
[2016-12-10] MEDS ORDERED: MRLP17 PO (13:06)
[2016-12-10] MEDS ORDERED: LUBI8CAP4 PO (13:06)
--- NOTE | 2016-12-10 13:10 | Discharge Instructions ---
Discharge Instructions Date of Service Dec 10, 2016. Admission Reason for Admission: Constipation, Intractable Abdominal Pain Discharge Discharge Diagnosis / Problem: Constipation, resolved Discharge Goals Goal(s): Decrease discomfort, Improve function Activity Recommendations Activity Limitations: resume your previous activity Lifting Limitations: none Exercise/Sports Limitations: as tolerated May Resume Sexual Activity: when tolerated Shower/Bathe: no limitations Driving or Machine Use: no limitations . Instructions / Follow-Up Instructions / Follow-Up Medications: please refer to list, you have completed steroids and antibiotics that were prescribed from previous discharge - MIRALAX: take twice a day to keep bowels regular, if you find that you are having loose stools every day you can back off to once a day - AMITIZA: take 24mcg (3 capsules) twice a day to keep bowels regular Stay active, stay well hydrated, eat lots of fiber FOLLOW UP - please call Dr. Zuniga's office to schedule follow up in one weeks time Current Hospital Diet Patient's current hospital diet: Regular Diet Discharge Diet Recommended Diet: Regular Diet Pending Studies Studies pending at discharge: no Laboratory Results Last Resulted CBC 12/09/16 05:15 Last Resulted BMP 12/08/16 05:35 12/09/16 05:15 Lipid Panel Test 09/25/16 14:10 Range/Units Triglycerides Level 205 H 0-150 mg/dl Cholesterol Level 161 0-200 mg/dl HDL Cholesterol 46 mg/dl Cholesterol/HDL Ratio 3.5 LDL Cholesterol, Calculated 74 mg/dl Medical Emergencies . Who to Call and When: Medical Emergencies: If at any time you feel your situation is an emergency, please call 911 immediately. . Non-Emergent Contact Non-Emergency issues call your: Primary Care Provider Call Non-Emergent contact if: you have any medication questions . . "Provider Documentation" section prepared by Antonio Koehler. VTE Core Measure Inpt VTE Proph given/why not?: Unfractionated heparin SQ
[2016-12-10 13:29] VITALS: BP 92/64; PULSE 93; TEMP 36.6; O2SAT 95
[2016-12-10 14:13] VITALS: PULSE 108; O2SAT 96
--- NOTE | 2016-12-10 14:46 | Discharge Summary ---
Discharge Summary Date of Service Dec 10, 2016. Discharge Summary Admission Date: Dec 08, 2016 at 15:56 Discharge Date: Dec 10, 2016 Discharge Disposition: Home Principal Diagnosis: Constipation causing abdominal pain Problems/Secondary Diagnoses: recent pneumonia and influenza h/o lung cancer in remission Immunizations: Have You Had Influenza Vaccine: No History of Tetanus Vaccine?: Unknown History of Pneumococcal: No History of Hepatitis B Vaccine: No Procedures: none Consultations: Gastroenterology Medication Reconciliation New Medications: Lubiprostone (Amitiza) 8 Mcg Cap 24 MCG PO BID, #180 CAP 3 Refills Polyethylene (Miralax) 17 Gm Pow 17 GM PO BID for 30 Days, #60 PKT 3 Refills Continued Medications: Albuterol Sulf (Proventil 0.083% 2.5MG/3ML) 2.5 Mg/3 Ml Nebu 3 ML NEB Q4-6HRS PRN for SOB/Wheezing Atorvastatin (Atorvastatin Calcium) 20 Mg Tab 20 MG PO QAM Citalopram (Citalopram Hydrobromide) 20 Mg Tab 20 MG PO QAM Ipratropium-Albuterol (Combivent Respimat) 1 Aer Aer 1 PUFF INH QID PRN for Shortness of Breath, INH Mometasone Furoate-Formoterol (Dulera 200/5 Mcg) 1 Aer Aer 2 PUFFS INH BID Pantoprazole (Pantoprazole Sodium) 40 Mg Tab 40 MG PO QAM Temazepam (Restoril) 30 Mg Cap 30 MG PO HS PRN for Sleep, CAP Tiotropium Mchenry (Spiriva Handihaler) 30 Puff/540 Mcg Aerp 1 CAP INH QPM, CAP Discontinued Medications: Doxycycline Hyclate (Doxycycline Hyclate) 100 Mg Cap 100 MG PO BID, #5 CAP Nystatin (Nystatin) 5 Ml Susp 5 ML PO QID for 3 Days Oseltamivir Phosphate (Tamiflu) 75 Mg Cap 75 MG PO BID, #3 CAP Prednisone (Prednisone) 10 Mg Tab 10 MG PO UD for 30 Days, #40 TAB 5 tabs x 1 day 4 tabs x 1 day 3 tabs x 1 day 2 tabs x 1 day then resume 1 tab daily Discharge Exam Patient feeling hungry this morning, no abdominal pain. Reports no real BM since starting Miralax and Amitiza yesterday. KUB this AM showed no stool in colon, mostly gas, no evidence of bowel obstruction. Patient was hungry and he had a large lunch, actually feels that he ate too quickly because he had some abdominal pain afterwards. He still felt well enough to go home. discussed plan to continue Miralax twice a day and Amitiza twice a day, he agreed with this plan, all questions answered. Review of Systems: Constitutional: No chills, No fatigue, No fever, No problem reported, No sweats, No weakness, No weight loss Eyes: No diplopia, No discharge, No eye pain, No problem reported, No redness, No worsening of vision ENT: No dental problems, No hearing loss, No nasal symptoms, No problem reported, No sore throat, No tinnitus, No trouble swallowing, No unusual epistaxis Respiratory: No cough, No dyspnea at rest, No dyspnea on exertion, No hemoptysis, No problem reported, No shortness of breath, No sputum, No wheezing Cardiovascular: No PND, No chest pain, No claudication, No edema, No orthopnea, No palpitations, No problem reported Abdomen: + pain (after he ate lunch, no pain this AM), No GI bleeding, No constipation, No diarrhea, No nausea, No problem reported, No vomiting Musculoskeletal: No calf pain, No joint pain, No muscle pain, No problem reported, No swelling Genitourinary - Male: No dysuria, No hematuria, No urinary frequency, No urinary urgency Neurologic: No balance problems, No memory loss, No numbness/tingling, No paralysis, No problem reported, No vertigo, No weakness Psychiatric: No anhedonism, No anxiety, No depression symptoms, No insomnia , No problem reported, No substance abuse Hematologic / Lymphatic: No abnormal bleeding/bruising, No clotting problems , No night sweats, No problem reported, No swollen lymph nodes Integumentary: No bleeding, No color change, No itch, No new/changing skin lesions, No problem reported, No rash Physical Exam: General Appearance: WD/WN, no apparent distress Eyes: normal inspection, EOMI, sclerae normal ENT: normal ENT inspection, hearing grossly normal, pharynx normal Neck: supple, no adenopathy, no JVD, trachea midline Respiratory/Chest: chest non-tender, lungs clear, normal breath sounds, no respiratory distress, no accessory muscle use Cardiovascular: regular rate, rhythm, no edema, no gallop, no JVD, no murmur , normal peripheral pulses Abdomen / GI: normal bowel sounds, non tender, soft, no organomegaly Extremities: normal inspection, no calf tenderness, normal capillary refill , no pedal edema, normal range of motion Neurologic/Psychiatric: dry house tender II-XII nml as tested, no motor/sensory deficits , alert, normal mood/affect, normal reflexes, oriented x 3 Skin: normal color, warm/dry, no rash Hospital Course 56yo male with severe COPD and h/o lung cancer, currently in remission - with recent hospital stay for COPD exacerbation due to influenza A infection - presenting with ongoing abdominal pain and severe constipation. 1. abdominal pain 2nd to severe constipation - CT and x-rays with severe constipation. Has right-sided 2mm kidney stone but inactive. has a h/o constipation when on chronic narcotics, unsure if this episode of constipation is due to recent IV narcotics on prior admission received GoLytely and enema and suppository, had some loose brown stools on gave Relistor and Lactulose 30mg, 6 doses, still no solid BM, but did have a large amount of brown liquid stool, 6 episodes appreciate GI consultation, will change to Miralax BID and Amitiza checked KUB on 12/10 - constipation resolved, no fecal load seen in colon, just normal bowel gas pattern, no evidence of obstruction tolerated a regular diet, actually ate his entire tray per GI recommendations, will d/c home on Miralax BID and Amitiza BID instructed to decrease Miralax to once a day if he has constant diarrhea stay active, well hydrated, plenty of fiber follow up with Dr. Zuniga in one week 2. FEN - cont clear liquid diet. stopped fluids yesterday, received 7 bags total, don't want to volume overload 3. recent influenza A infection - finished 5-days of tamiflu. clinically resolved. 4. recent COPD exacerbation - finish prednisone taper and resume prior dose of 10mg daily; finished course of Doxycycline. Home inhalers as previous. 5. h/o PUD - continue PPI. 6. DVT proph - lovenox once daily. 7. h/o lung cancer - he achieved remission sometime in the last 2 years. He was being followed closely by pulmonary for this up until recently. Most recent CT with "stable" nodular findings. He needs to re-establish with pulmonary for routine surveillance. 8. minimal leukocytosis - likely 2nd to recent steroid use. No fever and lung exam is quite stable at this time. 9. c/o LE paresthesias - no complaints of such today. B12 level is low-normal ; supplement orally. 10. code status - full, level 1. Total Time Spent: Greater than 30 minutes This includes examination of the patient, discharge planning, medication reconciliation, and communication with other providers. Discharge Instructions Please refer to the electronic Patient Visit Report (Discharge Instructions) for additional information. Follow-Up Dr. Zuniga in one week Dr. Chu as needed for further constipation issues Additional Copies To Sunny Chu D.O.; Isak Zuniga M.D.
[2016-12-10] MEDS ORDERED: PRED10TA PO (20:21)
[2016-12-10] MEDS ORDERED: ADVIN50/60 INH (20:21)
== END 2016-12-10 14:44 | disposition home or self-care (01) | DRG 392 ==
LOC: ENRESERVTM → ENRESERVDT → C.EDB 13:30 → C.MED 19:05 → INTOOBSV 19:05 → C.MED 12-08 15:38 → OBSVTOIN 12-08 15:56
PROVIDERS: ADMIT Internal Medicine; ATTEND Internal Medicine
DX: K59.00 Constipation, unspecified (principal); J44.1 Chronic obstructive pulmonary disease with (acute) exacerbation; Z85.118 Personal history of other malignant neoplasm of bronchus and lung; J11.1 Influenza due to unidentified influenza virus with other respiratory manifestations; D72.829 Elevated white blood cell count, unspecified; T40.2X5A Adverse effect of other opioids, initial encounter; Y92.9 Unspecified place or not applicable; R20.8 Other disturbances of skin sensation; Z87.11 Personal history of peptic ulcer disease; Z93.1 Gastrostomy status; Z83.3 Family history of diabetes mellitus; Z82.49 Family history of ischemic heart disease and other diseases of the circulatory system; Z80.9 Family history of malignant neoplasm, unspecified; Z87.891 Personal history of nicotine dependence; E78.5 Hyperlipidemia, unspecified; G89.4 Chronic pain syndrome; Z87.01 Personal history of pneumonia (recurrent)

== ENCOUNTER 2016-12-10 19:27 | Inpatient (IN) | payer OTHER ==
[~2016-12-10] VITALS: Ht 185.4 cm; Wt 69.7 kg
[~2016-12-10 19:27] MED LIST changes: +LUBI8CAP4 PO; +MRLP17 PO
[2016-12-10] MEDS ORDERED: SODIUM CHLORIDE 0.9% 1000ML 1,000 ML IV STA (19:43)
[2016-12-10] MEDS ORDERED: ONDANSETRON INJ 2 MG/ML 2 ML VIAL IV STA (19:43)
[2016-12-10] MEDS ORDERED: TRAMADOL HCL 50 MG TAB PO STA ×2 (19:43→22:08)
[2016-12-10] MEDS ORDERED: OPTIRAY 320 IV PRN (20:00)
[2016-12-10 20:16] LABS: BASO % 0.1 %; BASO ABS # 0.01 K/uL (0-0.2); COMPLETE YES; EOS % 0.1 %; HEMATOCRIT 50.6 % (42-52); IG% 1.6 %; LYMPH % 9.5 %; LYMPH ABS # 1.04 K/uL (1.2-3.4); MEAN CELL VOLUME 85.2 fL (80-100); MEAN CORPUSCULAR HEMOGLOBIN 29.3 pg (25-34); MEAN CORPUSCULAR HGB CONC 34.4 g/dl (32-36); MEAN PLATELET VOLUME 9.2 fL (7.4-10.4); MONO % 6.8 %; NEUT % 81.9 %; PLATELET COUNT 291 K/uL (130-400); RED BLOOD COUNT 5.94 M/uL (4.7-6.1); WHITE BLOOD COUNT 10.92 K/uL (4.8-10.8)
[2016-12-10] MEDS ORDERED: ADVIN50/60 INH (20:21)
[2016-12-10] MEDS ORDERED: PRED10TA PO (20:21)
[2016-12-10 20:29] LABS: CALCIUM 8.9 mg/dl (8.5-10.1); CREATININE 1.3 mg/dl (0.60-1.40); POTASSIUM 3.9 mmol/L (3.5-5.1)
[2016-12-10] MEDS ORDERED: PROMETHAZINE HCL INJ 12.5 MG in SODIUM CHLORIDE 0.9% 50ML 50 ML IV STA (21:08)
--- NOTE | 2016-12-10 21:13 | DIAGNOSTIC IMAGING REPORT ---
CT SCAN OF THE ABDOMEN AND PELVIS WITH IV CONTRAST CLINICAL HISTORY: Lower abdominal pain. Nausea. COMPARISON STUDY: Prior abdominal CT scans, most recently dated 12/07/2016. TECHNIQUE: Following the IV administration of 93 cc of Optiray 320, CT scan of the abdomen and pelvis is performed from the lung bases to the proximal femora. Images are reviewed in the axial, sagittal, and coronal planes. IV contrast was administered without complication. Automated dose control exposure was utilized. CT DOSE: 292.26 mGy.cm FINDINGS: Lung bases: The heart is normal in size noting trace pericardial effusion. Advanced emphysematous change is identified at the lung bases. A fat-containing Bochdalek hernia is noted at the right lung base. No airspace consolidation or pleural effusion is seen. There is a small hiatal hernia. Liver: The contrast-enhanced liver is normal in size, contour, and attenuation. There is minimal central intrahepatic biliary ductal dilatation. The hepatic veins and portal veins are patent. A 6 mm hypodensity in the left lobe seen on image #57 likely represents a small cyst but is too small for definitive characterization. This is unchanged from previous. Gallbladder: Surgically absent noting clips in the gallbladder fossa. Spleen: Normal in size and attenuation. Pancreas: Unremarkable. Adrenal glands: Unremarkable. Kidneys: The contrast enhanced kidneys are normal in size and without hydronephrosis. The kidneys enhance symmetrically. There are 2 cortical hypodensities in the right lower pole measuring up to 12 mm. These likely represent cysts, but are too small for definitive characterization and unchanged from previous. A nonobstructing right renal calculus is noted. Abdominal vasculature: The abdominal aorta is normal in course and caliber noting moderate atherosclerotic calcification. Bowel: Postoperative change is suggested in the stomach. The small bowel and colon are normal in course and caliber. There is moderate colonic fecal retention. A metallic foreign body is identified in the sigmoid colon on image #321. The appendix is well-visualized and normal. Peritoneum: There is no intraperitoneal free air or abdominal ascites. There is a fat-containing umbilical hernia. Numerous foci of induration and subcutaneous gas within the ventral abdominal fat are likely related to subcutaneous injections. Lymphadenopathy: None. Pelvic viscera: The prostate gland is mildly enlarged and heterogeneous, measuring up to 4.7 cm in transverse diameter. The bladder and seminal vesicles are normal as imaged. Skeletal structures: The skeletal structures are osteopenic. No lytic or blastic lesions are seen. There are healed left-sided rib fractures. IMPRESSION: 1. There are no acute infectious or inflammatory findings in the abdomen or pelvis. There has been no significant change from study performed 3 days previously. 2. There is moderate colonic fecal retention. No bowel obstruction is seen. 3. Small nonobstructing right renal calculus. 4. Unchanged appearance of an indeterminant metallic foreign body identified in the sigmoid colon. Clinical correlation will be required. 5. Advanced emphysema. 6. Additional changes as above. Electronically signed by: Jorge Alberto Webber M.D. 12/10/2016 9:12 PM Dictated Date/Time: 12/10/2016 9:05 PM
[2016-12-10 21:20] LABS: URINE APPEARANCE CLEAR (CLEAR); URINE BILIRUBIN NEG (NEG); URINE COLOR DK YELLOW; URINE EPITHELIAL CELL AUTO 20-30 /lpf (0-5); URINE NITRITE NEG (NEG); URINE SPECIFIC GRAVITY 1.013 (1.000-1.030); UROBILINOGEN NEG (NEG)
[2016-12-10 21:21] LABS: MANUAL MICROSCOPIC REQUIRED? NO; REVIEW REQ? NO
--- NOTE | 2016-12-10 22:49 | EMERGENCY ROOM VISIT NOTE ---
History Report prepared by Valerie: Gretchen Ko Under the Supervision of: Dr. Rodo Robbins M.D. First contact with patient: 19:32 Chief Complaint: ABDOMINAL PAIN Stated Complaint: ABD PAIN, NAUSEA History of Present Illness The patient is a 56 year old male who presents to the Emergency Room with complaints of persistent, aching, abdominal pain that started 3 days ago. This pain was a little better yesterday but worsened again today. Associated symptoms include nausea, vomiting, and watery stools. The patient was discharged from [facility] earlier today with a diagnosis of constipation. He was being treated with multiple constipation medications and enemas. Denies recent fevers and urinary symptoms. Source of History: patient Onset: 3 days ago Position: abdomen Quality: ache Timing: other (Persistent ) Modifying Factors (Relieving): other (None) Associated Symptoms: + diarrhea, + nausea, + vomiting, No fevers, No urinary symptoms Review of Systems See HPI for pertinent positives & negatives. A total of 10 systems reviewed and were otherwise negative. Past Medical & Surgical Medical Problems: (1) Constipation (2) GI bleed (3) Hypertension (4) Lung cancer (5) Mediport (6) Non-small cell lung cancer (7) Peptic Ulcer Disease (8) Pulmonary embolism (9) SOB (shortness of breath) Family History Cancer Diabetes mellitus Gallbladder disease Heart disease Hypertension Kidney stones Social History Smoking Status: Former Smoker Alcohol Use: none Drug Use: none Marital Status: single Housing Status: lives alone Occupation Status: unemployed Current/Historical Medications Scheduled Atorvastatin (Atorvastatin Calcium), 20 MG PO QAM Citalopram (Citalopram Hydrobromide), 20 MG PO QAM Fluticasone Prop/Salmeterol (Advair Diskus 500/50 60 Dose), 1 PUFF INH BID Lubiprostone (Amitiza), 24 MCG PO BID Pantoprazole (Pantoprazole Sodium), 40 MG PO QAM Polyethylene (Miralax), 17 GM PO BID Prednisone Tab (Prednisone), 10 MG PO DAILY Scheduled PRN Albuterol Sulf (Proventil 0.083% 2.5MG/3ML), 3 ML NEB Q4-6HRS PRN for SOB/ Wheezing Ipratropium-Albuterol (Combivent Respimat), 1 PUFF INH QID PRN for Shortness of Breath Temazepam (Restoril), 30 MG PO HS PRN for Sleep Allergies Coded Allergies: No Known Allergies (Verified , 07/28/16) Physical Exam Vital Signs Date Time Temp Pulse Resp B/P Pulse Ox O2 Delivery O2 Flow Rate FiO2 12/10/16 22:15 115 20 106/84 96 Room Air 12/10/16 20:59 102 24 128/83 98 Room Air 12/10/16 19:29 36.4 113 20 125/76 98 Room Air Physical Exam Constitutional: Vital signs reviewed. Eyes: Pupils are equal round reactive to light. Conjunctiva are noninjected. ENT: Slight white coating to tongue noted, not involving posterior oropharynx. Pharynx is clear without erythema or exudate. Mucous membranes are dry. Neck supple without meningeal signs. Respiratory: Clear to auscultation bilaterally. Breath sounds are equal bilaterally. Cardiovascular: Regular rate and rhythm. No rubs or gallops. GI: Tenderness to lower abdomen, no guarding. Soft, and nondistended. Bowel sounds are present. Musculoskeletal: No peripheral edema. Integumentary: No cyanosis. Neurological: The patient is awake and alert. No focal deficits. Psychiatric: Normal affect. Medical Decision & Procedures ER Provider Diagnostic Interpretation: CT results as stated below per interpretation by me and the radiologist: CT SCAN OF THE ABDOMEN AND PELVIS WITH IV CONTRAST CLINICAL HISTORY: Lower abdominal pain. Nausea. COMPARISON STUDY: Prior abdominal CT scans, most recently dated 12/07/2016. TECHNIQUE: Following the IV administration of 93 cc of Optiray 320, CT scan of the abdomen and pelvis is performed from the lung bases to the proximal femora. Images are reviewed in the axial, sagittal, and coronal planes. IV contrast was administered without complication. Automated dose control exposure was utilized. CT DOSE: 292.26 mGy.cm FINDINGS: Lung bases: The heart is normal in size noting trace pericardial effusion. Advanced emphysematous change is identified at the lung bases. A fat-containing Bochdalek hernia is noted at the right lung base. No airspace consolidation or pleural effusion is seen. There is a small hiatal hernia. Liver: The contrast-enhanced liver is normal in size, contour, and attenuation. There is minimal central intrahepatic biliary ductal dilatation. The hepatic veins and portal veins are patent. A 6 mm hypodensity in the left lobe seen on image #57 likely represents a small cyst but is too small for definitive characterization. This is unchanged from previous. Gallbladder: Surgically absent noting clips in the gallbladder fossa. Spleen: Normal in size and attenuation. Pancreas: Unremarkable. Adrenal glands: Unremarkable. Kidneys: The contrast enhanced kidneys are normal in size and without hydronephrosis. The kidneys enhance symmetrically. There are 2 cortical hypodensities in the right lower pole measuring up to 12 mm. These likely represent cysts, but are too small for definitive characterization and unchanged from previous. A nonobstructing right renal calculus is noted. Abdominal vasculature: The abdominal aorta is normal in course and caliber noting moderate atherosclerotic calcification. Bowel: Postoperative change is suggested in the stomach. The small bowel and colon are normal in course and caliber. There is moderate colonic fecal retention. A metallic foreign body is identified in the sigmoid colon on image #321. The appendix is well-visualized and normal. Peritoneum: There is no intraperitoneal free air or abdominal ascites. There is a fat-containing umbilical hernia. Numerous foci of induration and subcutaneous gas within the ventral abdominal fat are likely related to subcutaneous injections. Lymphadenopathy: None. Pelvic viscera: The prostate gland is mildly enlarged and heterogeneous, measuring up to 4.7 cm in transverse diameter. The bladder and seminal vesicles are normal as imaged. Skeletal structures: The skeletal structures are osteopenic. No lytic or blastic lesions are seen. There are healed left-sided rib fractures. IMPRESSION: 1. There are no acute infectious or inflammatory findings in the abdomen or pelvis. There has been no significant change from study performed 3 days previously. 2. There is moderate colonic fecal retention. No bowel obstruction is seen. 3. Small nonobstructing right renal calculus. 4. Unchanged appearance of an indeterminant metallic foreign body identified in the sigmoid colon. Clinical correlation will be required. 5. Advanced emphysema. 6. Additional changes as above. Electronically signed by: Jorge Alberto Webber M.D. 12/10/2016 9:12 PM Dictated Date/Time: 12/10/2016 9:05 PM Laboratory Results 12/10/16 19:55 Red Blood Count 5.94, Mean Corpuscular Volume 85.2, Mean Corpuscular Hemoglobin 29.3, Mean Corpuscular Hemoglobin Concent 34.4, Mean Platelet Volume 9.2, Neutrophils (%) (Auto) 81.9, Lymphocytes (%) (Auto) 9.5, Monocytes (%) (Auto) 6.8, Eosinophils (%) (Auto) 0.1, Basophils (%) (Auto) 0.1, Neutrophils # (Auto) 8.95, Lymphocytes # (Auto) 1.04, Monocytes # (Auto) 0.74, Eosinophils # (Auto) 0.01, Basophils # (Auto) 0.01 12/10/16 19:55 Test 12/10/16 19:55 12/10/16 21:00 White Blood Count 10.92 K/uL (4.8-10.8) Red Blood Count 5.94 M/uL (4.7-6.1) Hemoglobin 17.4 g/dL (14.0-18.0) Hematocrit 50.6 % (42-52) Mean Corpuscular Volume 85.2 fL (80-100) Mean Corpuscular Hemoglobin 29.3 pg (25-34) Mean Corpuscular Hemoglobin Concent 34.4 g/dl (32-36) Platelet Count 291 K/uL (130-400) Mean Platelet Volume 9.2 fL (7.4-10.4) Neutrophils (%) (Auto) 81.9 % Lymphocytes (%) (Auto) 9.5 % Monocytes (%) (Auto) 6.8 % Eosinophils (%) (Auto) 0.1 % Basophils (%) (Auto) 0.1 % Neutrophils # (Auto) 8.95 K/uL (1.4-6.5) Lymphocytes # (Auto) 1.04 K/uL (1.2-3.4) Monocytes # (Auto) 0.74 K/uL (0.11-0.59) Eosinophils # (Auto) 0.01 K/uL (0-0.5) Basophils # (Auto) 0.01 K/uL (0-0.2) RDW Standard Deviation 50.6 fL (36.4-46.3) RDW Coefficient of Variation 16.3 % (11.5-14.5) Immature Granulocyte % (Auto) 1.6 % Immature Granulocyte # (Auto) 0.17 K/uL (0.00-0.02) Anion Gap 10.0 mmol/L (3-11) Est Creatinine Clear Calc Drug Dose 64.1 ml/min Estimated GFR () 70.7 Estimated GFR (Non- 61.0 BUN/Creatinine Ratio 7.0 (10-20) Calcium Level 8.9 mg/dl (8.5-10.1) Total Bilirubin 0.9 mg/dl (0.2-1) Direct Bilirubin 0.2 mg/dl (0-0.2) Aspartate Amino Transf (AST/SGOT) 14 U/L (15-37) Alanine Aminotransferase (ALT/SGPT) 44 U/L (12-78) Alkaline Phosphatase 132 U/L (45-117) Total Protein 6.5 gm/dl (6.4-8.2) Albumin 3.5 gm/dl (3.4-5.0) Lipase 78 U/L (73-393) Urine Color DK YELLOW Urine Appearance CLEAR (CLEAR) Urine pH 5.0 (4.5-7.5) Urine Specific [place] 1.013 (1.000-1.030) Urine Protein NEG (NEG) Urine Glucose (UA) NEG (NEG) Urine Ketones TRACE (NEG) Urine Occult Blood 1+ (NEG) Urine Nitrite NEG (NEG) Urine Bilirubin NEG (NEG) Urine Urobilinogen NEG (NEG) Urine Leukocyte Esterase NEG (NEG) Urine WBC (Auto) 1-5 /hpf (0-5) Urine RBC (Auto) 5-10 /hpf (0-4) Urine Hyaline Casts (Auto) 1-5 /lpf (0-5) Urine Epithelial Cells (Auto) 20-30 /lpf (0-5) Urine Bacteria (Auto) NEG (NEG) Laboratory results as reviewed by me. Medications Administered Medications (Trade) Dose Ordered Sig/Dae Route Start Time Stop Time Status Last Admin Dose Admin Ondansetron HCl (Zofran Inj) 4 mg NOW STAT IV 12/10/16 19:43 12/10/16 19:45 DC 12/10/16 20:00 4 MG Tramadol HCl 50 mg 50 mg NOW STAT PO 12/10/16 19:43 12/10/16 19:45 DC 12/10/16 20:01 50 MG Sodium Chloride 1,000 ml @ 999 mls/hr Q1H1M STAT IV 12/10/16 19:43 12/10/16 20:43 DC 12/10/16 19:43 999 MLS/HR Promethazine HCl/ Sodium Chloride (Phenergan Inj/ Nss 50ml) 50.5 ml @ 204 mls/hr NOW STAT IV 12/10/16 21:08 12/10/16 21:22 DC 12/10/16 21:16 204 MLS/HR Tramadol HCl (Ultram Tab) 25 mg NOW STAT PO 12/10/16 22:08 12/10/16 22:09 DC 12/10/16 22:15 25 MG ED Course 1937: The patient was evaluated in room B2. A complete history and physical exam was performed. 1942: Ordered Sodium Chloride 1,000 ml @ 999 mls/hr IV, Tramadol HCL 50 mg PO, Zofran Injection 4 mg IV. 2003: The patient has been treated with Nystatin for Thrush while during previous hospital visit. 2107: Ordered Promethazine HCL 12.5 mg/Sodium Chloride 50.5 ml @ 204 mls/hr IV. 2130: Upon reevaluation, the patient is dry heaving. I let him know about his test results. We will perform an enema. 2200: Per the nurse, the patient was only able to tolerate 25 ml of enema. 2207: Ordered Tramadol HCL 25 mg PO. 2210: I talked with the patient. He is requesting narcotics; I told him they would worsen his symptoms. I will order Tramadol. The patient requests admission to the hospital. 2213: I discussed the patient's case with Dr. Pak ([facility] [place] He will further evaluate the patient. Medical Decision This is a 56-year-old male who presents with abdominal pain and vomiting. Differential diagnosis includes partial bowel obstruction, bowel obstruction, ileus, constipation, fecal impaction, pancreatitis. I did perform a limited focused review of portions of the patient's old chart on the electronic medical record. The patient was admitted for constipation and abdominal pain on December 08. He was discharged today on MiraLAX and Amitiza. CT scan showed severe constipation. I did evaluate the patient as noted above. The patient is presenting with vomiting and continued abdominal pain. He states he did not really get any better while in the hospital. He was discharged earlier today from the hospital. IV access was established. The patient requested pain medicine but I did explain to her that during his previous admission he had significant constipation and is prone to narcotic induced constipation. I therefore did not feel comfortable giving him medication that may worsen his condition. He did request tramadol which she states he was given in the hospital. I therefore give him 50 mg of tramadol. He was also given Zofran IV. He was given normal saline IV. I did order and review the patient's blood work as noted in the electronic medical record. His blood work is unremarkable. He has a slight elevation of his white blood cell count. I did order a CT of the abdomen and pelvis. I did review the images myself as well as the radiology report as described above. He has moderate fecal retention but otherwise no acute process. There is no evidence of obstruction. I did reassess the patient. He continues to dry heave. He was given Phenergan IV. I did discuss the test results with the patient and his brother. His brother demanded that he be admitted to the hospital. I did recommend that we attempt a enema prior to assessing for admission. The patient agreed but could not tolerate the enema. He continued to request admission as well as narcotic pain medicine. Again I explained to him why I could not give him narcotics given fecal retention on CAT scan. He requested more tramadol as he stated that he vomited the tramadol I gave him earlier. He was given an additional dose of tramadol. I did discuss case with the hospitalist for further evaluation. Consults Time Called: 2212 Consulting Physician: Dr. Pak ([facility] [place] Returned Call: [phone] I discussed the patient's case with Dr. Pak ([facility] [place] He will further evaluate the patient. Impression Primary Impression: Lower abdominal pain Additional Impression: Intractable vomiting Scribe Attestation The scribe's documentation has been prepared under my direct and personally reviewed by me in its entirety. I confirm that the note above accurately reflects all work, treatment, procedures, and medical decision making performed by me. Departure Information Dispostion Being Evaluated By Hospitalist Referrals Isak Zuniga M.D. (PCP) Patient Instructions [facility] Problem Qualifiers Additional Impression: Intractable vomiting Vomiting type: unspecified Nausea presence: with nausea Qualified Codes: R11.2 - Nausea with vomiting, unspecified
[2016-12-10] MEDS ORDERED: ACETAMINOPHEN IV 100 ML IV STA (23:30)
[2016-12-10] MEDS ORDERED: IV FLUIDS COMPLETED PRN (23:45)
[2016-12-11] MEDS: SODIUM CHLORIDE 0.9% 1000ML 1,000 ML IV SCH ×5 (00:22→21:28)
[2016-12-11 00:24] VITALS: BP 126/82; PULSE 109; TEMP 36.9; O2SAT 94; Ht 185.4 cm; Wt 69.7 kg
[2016-12-11] MEDS ORDERED: CLONIDINE HCL 0.1 MG TAB PO PRN (00:45)
--- NOTE | 2016-12-11 00:48 | History and Physical ---
History & Physical Date & Time of Service: Dec 10, 2016 at 23:25 Chief Complaint: Abd Pain, Nausea Primary Care Physician: Isak Zuniga M.D. History of Present Illness Source: patient Mr Rosales is a 56 year old male with history of COPD and lung cancer (in remission) who was recently admitted for COPD exacerbation Nov -05 December, then readmitted for fecal retention 08 December and discharged earlier today after abdominal pain free in the morning and AXR showing resolution of stool. After he had a large lunch he felt some mild abdominal pain but felt he was ok to still be discharged home. Unfortunately on the journey home he started vomiting and continued to vomit while in bed. He was unable to eat or drink anything so his brother brought him back to the ER. He was treated with an aggressive bowel regimen on his previous admission and reportedly had lots of loose stool but no large BM. His pain was treated with significant amounts of tramadol on the last admission He was on chronic opiates for several years while being treated for lung cancer however reports stopping this several months ago. He denies any illicit drug or narcotic usage. Past Medical/Surgical History PMH: 1. h/o non-small cell lung cancer - in remission, s/p chemotherapy 2. severe COPD 3. previous tobacco dependence 4. chronic constipation 5. h/o chronic pain syndrome 6. h/o PUD PSH: 1. a-port placement 2. h/o PEG tube placement with subsequent removal of such 3. s/p cholecystectomy 4. s/p closure of abdominal wall fistula at site of previous PEG tube Family History Cancer Diabetes mellitus Gallbladder disease Heart disease Hypertension Kidney stones Social History Smoking Status: Former Smoker Drug Use: none Marital Status: single Housing status: lives alone Occupational Status: unemployed Immunizations History of Influenza Vaccine: No History of Tetanus Vaccine?: Unknown History of Pneumococcal: No History of Hepatitis B Vaccine: No Multi-Drug Resistant Organisms History of MDRO: No Allergies Coded Allergies: No Known Allergies (Verified , 07/28/16) Home Medications Scheduled Atorvastatin (Atorvastatin Calcium), 20 MG PO QAM Citalopram (Citalopram Hydrobromide), 20 MG PO QAM Fluticasone Prop/Salmeterol (Advair Diskus 500/50 60 Dose), 1 PUFF INH BID Lubiprostone (Amitiza), 24 MCG PO BID Pantoprazole (Pantoprazole Sodium), 40 MG PO QAM Polyethylene (Miralax), 17 GM PO BID Prednisone Tab (Prednisone), 10 MG PO DAILY Scheduled PRN Albuterol Sulf (Proventil 0.083% 2.5MG/3ML), 3 ML NEB Q4-6HRS PRN for SOB/ Wheezing Ipratropium-Albuterol (Combivent Respimat), 1 PUFF INH QID PRN for Shortness of Breath Temazepam (Restoril), 30 MG PO HS PRN for Sleep Review of Systems Constitutional: No chills, No fever Eyes: No worsening of vision ENT: No hearing loss Respiratory: No cough, No shortness of breath Cardiovascular: No chest pain Abdomen: + diarrhea, + nausea, + pain, + vomiting, No GI bleeding, No constipation Genitourinary - Male: No dysuria, No hematuria, No urinary frequency, No urinary urgency Hematologic / Lymphatic: No abnormal bleeding/bruising Integumentary: No itch, No rash Physical Exam Vital Signs Date Time Temp Pulse Resp B/P Pulse Ox O2 Delivery O2 Flow Rate FiO2 12/10/16 23:07 114 20 118/82 94 Room Air 12/10/16 22:15 115 20 106/84 96 Room Air 12/10/16 20:59 102 24 128/83 98 Room Air 12/10/16 19:29 36.4 113 20 125/76 98 Room Air General Appearance: WD/WN, + severe distress (abdominal pain) Head: normocephalic, atraumatic Eyes: PERRL, EOMI, + pertinent finding (sunken eyes) ENT: normal ENT inspection, + pertinent finding (dry mucus membranes) Neck: supple, no JVD, trachea midline Respiratory/Chest: chest non-tender, lungs clear, normal breath sounds, no respiratory distress, no accessory muscle use Cardiovascular: no murmur, normal peripheral pulses, + tachycardia (regular rhythm) Abdomen/GI: normal bowel sounds, soft, + tenderness (generalized, patient notes worse on right side, no rebound or guarding) Back: no CVA tenderness Extremities/Musculoskelatal: no calf tenderness, normal capillary refill, no pedal edema 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 as tested (no facial droop, numbness, SCM and trapezius intact), no motor/sensory deficits (grossly, moving all 4 limbs equally), alert, oriented x 3 Skin: normal color, warm/dry, no rash Diagnostics Laboratory Results Results Past 24 Hours Test 12/10/16 19:55 12/10/16 21:00 Range/Units White Blood Count 10.92 4.8-10.8 K/uL Red Blood Count 5.94 4.7-6.1 M/uL Hemoglobin 17.4 14.0-18.0 g/dL Hematocrit 50.6 42-52 % Mean Corpuscular Volume 85.2 80-100 fL Mean Corpuscular Hemoglobin 29.3 25-34 pg Mean Corpuscular Hemoglobin Concent 34.4 32-36 g/dl Platelet Count 291 130-400 K/uL Mean Platelet Volume 9.2 7.4-10.4 fL Neutrophils (%) (Auto) 81.9 % Lymphocytes (%) (Auto) 9.5 % Monocytes (%) (Auto) 6.8 % Eosinophils (%) (Auto) 0.1 % Basophils (%) (Auto) 0.1 % Neutrophils # (Auto) 8.95 1.4-6.5 K/uL Lymphocytes # (Auto) 1.04 1.2-3.4 K/uL Monocytes # (Auto) 0.74 0.11-0.59 K/uL Eosinophils # (Auto) 0.01 0-0.5 K/uL Basophils # (Auto) 0.01 0-0.2 K/uL RDW Standard Deviation 50.6 36.4-46.3 fL RDW Coefficient of Variation 16.3 11.5-14.5 % Immature Granulocyte % (Auto) 1.6 % Immature Granulocyte # (Auto) 0.17 0.00-0.02 K/uL Sodium Level 141 136-145 mmol/L Potassium Level 3.9 3.5-5.1 mmol/L Chloride Level 104 98-107 mmol/L Carbon Dioxide Level 27 21-32 mmol/L Anion Gap 10.0 3-11 mmol/L Blood Urea Nitrogen 9 7-18 mg/dl Creatinine 1.30 0.60-1.40 mg/dl Est Creatinine Clear Calc Drug Dose 64.1 ml/min Estimated GFR () 70.7 Estimated GFR (Non- 61.0 BUN/Creatinine Ratio 7.0 10-20 Random Glucose 142 70-99 mg/dl Calcium Level 8.9 8.5-10.1 mg/dl Total Bilirubin 0.9 0.2-1 mg/dl Direct Bilirubin 0.2 0-0.2 mg/dl Aspartate Amino Transf (AST/SGOT) 14 15-37 U/L Alanine Aminotransferase (ALT/SGPT) 44 12-78 U/L Alkaline Phosphatase 132 45-117 U/L Total Protein 6.5 6.4-8.2 gm/dl Albumin 3.5 3.4-5.0 gm/dl Lipase 78 73-393 U/L Urine Color DK YELLOW Urine Appearance CLEAR CLEAR Urine pH 5.0 4.5-7.5 Urine Specific [place] 1.013 1.000-1.030 Urine Protein NEG NEG Urine Glucose (UA) NEG NEG Urine Ketones TRACE NEG Urine Occult Blood 1+ NEG Urine Nitrite NEG NEG Urine Bilirubin NEG NEG Urine Urobilinogen NEG NEG Urine Leukocyte Esterase NEG NEG Urine WBC (Auto) 1-5 0-5 /hpf Urine RBC (Auto) 5-10 0-4 /hpf Urine Hyaline Casts (Auto) 1-5 0-5 /lpf Urine Epithelial Cells (Auto) 20-30 0-5 /lpf Urine Bacteria (Auto) NEG NEG Diagnostic Radiology CT SCAN OF THE ABDOMEN AND PELVIS WITH IV CONTRAST CLINICAL HISTORY: Lower abdominal pain. Nausea. COMPARISON STUDY: Prior abdominal CT scans, most recently dated 12/07/2016. TECHNIQUE: Following the IV administration of 93 cc of Optiray 320, CT scan of the abdomen and pelvis is performed from the lung bases to the proximal femora. Images are reviewed in the axial, sagittal, and coronal planes. IV contrast was administered without complication. Automated dose control exposure was utilized. CT DOSE: 292.26 mGy.cm FINDINGS: Lung bases: The heart is normal in size noting trace pericardial effusion. Advanced emphysematous change is identified at the lung bases. A fat-containing Bochdalek hernia is noted at the right lung base. No airspace consolidation or pleural effusion is seen. There is a small hiatal hernia. Liver: The contrast-enhanced liver is normal in size, contour, and attenuation. There is minimal central intrahepatic biliary ductal dilatation. The hepatic veins and portal veins are patent. A 6 mm hypodensity in the left lobe seen on image #57 likely represents a small cyst but is too small for definitive characterization. This is unchanged from previous. Gallbladder: Surgically absent noting clips in the gallbladder fossa. Spleen: Normal in size and attenuation. Pancreas: Unremarkable. Adrenal glands: Unremarkable. Kidneys: The contrast enhanced kidneys are normal in size and without hydronephrosis. The kidneys enhance symmetrically. There are 2 cortical hypodensities in the right lower pole measuring up to 12 mm. These likely represent cysts, but are too small for definitive characterization and unchanged from previous. A nonobstructing right renal calculus is noted. Abdominal vasculature: The abdominal aorta is normal in course and caliber noting moderate atherosclerotic calcification. Bowel: Postoperative change is suggested in the stomach. The small bowel and colon are normal in course and caliber. There is moderate colonic fecal retention. A metallic foreign body is identified in the sigmoid colon on image #[id number]. The appendix is well-visualized and normal. Peritoneum: There is no intraperitoneal free air or abdominal ascites. There is a fat-containing umbilical hernia. Numerous foci of induration and subcutaneous gas within the ventral abdominal fat are likely related to subcutaneous injections. Lymphadenopathy: None. Pelvic viscera: The prostate gland is mildly enlarged and heterogeneous, measuring up to 4.7 cm in transverse diameter. The bladder and seminal vesicles are normal as imaged. Skeletal structures: The skeletal structures are osteopenic. No lytic or blastic lesions are seen. There are healed left-sided rib fractures. IMPRESSION: 1. There are no acute infectious or inflammatory findings in the abdomen or pelvis. There has been no significant change from study performed 3 days previously. 2. There is moderate colonic fecal retention. No bowel obstruction is seen. 3. Small nonobstructing right renal calculus. 4. Unchanged appearance of an indeterminant metallic foreign body identified in the sigmoid colon. Clinical correlation will be required. 5. Advanced emphysema. 6. Additional changes as above. Electronically signed by: Jorge Alberto Webber M.D. 12/10/2016 9:12 PM Dictated Date/Time: 12/10/2016 9:05 PM Impression Assessment and Plan 56 year old male who is a readmission from earlier in the day for intractable nausea, vomiting and diarrhea. Abdominal pain - Ileus with moderate fecal colonic retention - likely secondary to tramadol use. Recent doxycycline use may also have contributed. - Abdominal pain is out of proportion for examination, reassuringly CT was with IV contrast and no mesenteric ischemia seen, will also get a stat lactic acid and trend if raised - Soap suds enema in ER did not help and much of colonic retention is in the ascending colon therefore will hold off additional bottom end laxatives currently, top end laxatives will also be on hold until his abdominal pain and nausea and vomiting improve - NPO except meds (no complete bowel obstruction to suggest he cannot take oral meds), IVF + NG tube on intermittent suction - For pain - treat with IV acetaminophen + Toradol. If able to take oral meds will give clonidine for tramadol withdrawal. Nutrition - will need to be very slowly started on diet given two readmissions for same complaint. Currently however will keep NPO except meds until N&V and abdominal pain improving. COPD - no current exacerbation. Continue chronic 10 mg prednisone. Continue home inhalers. Duonebs PRN. H/O PUD - continue PPI. H/O lung cancer - he achieved remission sometime in the last 2 years. He was being followed closely by pulmonary for this up until recently. Most recent CT with "stable" nodular findings. If vomiting does not improve with above measure will get CT head LE paresthesias - Continue B12 supplementation. It is a chronic issue, but he reports it is worse today. If he continues with this symptom or develops motor symptoms consider imaging of spine. VTE Prophylaxis - lovenox 40 mg SQ daily - SCDs + TEDs Code - Full Disposition - observation status to med/surg for rehydration with IVF and treatment of intractable vomiting Level of Care Med/Surg Resuscitation Status FULL RESUSCITATION VTE Prophylaxis VTE Risk Assessment Done? Y/N: Yes Risk Level: Moderate Resident Tracking Resident Involvement: Resident Care Provided Care Provided: Adult [facility] Medicine Assessment and Plan Attending Addendum: I have physically seen and examined this patient, have directed their medical care, have supervised the medical residents activities, and agree with the H&P as noted above, with the following changes: NONE The patient is awake, well-developed and adequately nourished, alert and oriented 3, normocephalic and atraumatic, lying in bed and in no acute distress. HEENT--PERRL, EOMI, mucous membranes and oropharynx dry. Neck--supple, no JVD or bruits, thyroid normal, trachea midline, no adenopathy. Heart--normal S1 and S2, no extra beats, no murmurs, rubs or gallops. Lungs--clear bilaterally with good air movement, no respiratory distress, no accessory muscle use. Abdomen--hyperactive bowel sounds, mildly distended, generalized vague tenderness, no hernias or masses, no organomegaly. Extremities--no cyanosis, clubbing or edema. There are good distal pulses b/l. Dermatologic--normal skin turgor, normal color, warm and dry, no abnormal lymph nodes, no rash. Neurologic--cranial nerves II through XII grossly intact, motor and sensory examination normal. Rheumatologic--normal range of motion, nontender, muscles and joints. Psychiatric--normal affect. Assessment and Plan: Ileus/dehydration--the patient was too aggressive about eating when he was discharged home earlier today, Giving himself a food bolus, and causing abdominal discomfort. He'll be rehydrated aggressively with IV fluids, work on additional bowel prep, Zofran for nausea and Protonix for acid reduction.
[2016-12-11] MEDS: KETOROLAC TROMETHAMINE 15 MG/ML VIAL IV. PRN ×2 (01:07→21:33)
[2016-12-11] MEDS: ONDANSETRON INJ 2 MG/ML 2 ML VIAL IV PRN ×2 (01:08→05:15)
[2016-12-11] MEDS: TEMAZEPAM 15 MG CAP PO PRN (02:06)
[2016-12-11 07:01] VITALS: BP 122/83; PULSE 107; TEMP 37.3; O2SAT 92
--- NOTE | 2016-12-11 07:36 | DIAGNOSTIC IMAGING REPORT ---
CHEST ONE VIEW PORTABLE CLINICAL HISTORY: NG tube placement tube position COMPARISON STUDY: 12/06/2016 FINDINGS: Nasogastric tube placed inferior to the diaphragm. Exact location cannot be ascertained due to film cut off. Central catheter remains in superior vena cava. Lungs are grossly clear. Mild chronic bibasilar interstitial prominence. IMPRESSION: Nasogastric tube placed anterior to the diaphragm. Exact location cannot be ascertained due to film cut off Electronically signed by: Balaji Barton M.D. 12/11/2016 7:34 AM Dictated Date/Time: 12/11/2016 7:32 AM
--- NOTE | 2016-12-11 07:54 | DIAGNOSTIC IMAGING REPORT ---
KUB CLINICAL HISTORY: NG tube placement tube position COMPARISON STUDY: No previous studies for comparison. FINDINGS: Nasogastric tube placed within the gastric fundus. Nonobstructive bowel pattern. IMPRESSION: Nasogastric tube placed within the gastric fundus. Nonobstructive bowel pattern Electronically signed by: Balaji Barton M.D. 12/11/2016 7:52 AM Dictated Date/Time: 12/11/2016 7:52 AM
[2016-12-11] MEDS ORDERED: ATORVASTATIN 20 MG TAB PO SCH (09:00)
[2016-12-11] MEDS ORDERED: CITALOPRAM 20 MG TAB NG SCH (09:00)
[2016-12-11] MEDS ORDERED: ATORVASTATIN 20 MG TAB NG SCH (09:00)
[2016-12-11] MEDS ORDERED: CITALOPRAM 20 MG TAB PO SCH (09:00)
[2016-12-11] MEDS: CITALOPRAM 20 MG TAB PO SCH (09:47)
[2016-12-11] MEDS: ACETAMINOPHEN IV 1,000 MG in EMPTY BAG 0 ML IV SCH ×2 (09:47→15:44)
[2016-12-11] MEDS: ATORVASTATIN 20 MG TAB PO SCH (09:48)
[2016-12-11] MEDS: FLUTICASONE/SALMETEROL (ADVAIR) 500/50 INH 14 PUFF INH SCH ×2 (09:48→21:27)
[2016-12-11] MEDS ORDERED: HYDROmorphone INJ 0.5 MG/0.5 ML SYR IV ONE (11:00)
[2016-12-11] MEDS ORDERED: MILK AND MOLASSES ENEMA PR ONE (11:30)
[2016-12-11] MEDS: PANTOprazole INJ 40 MG in SYRINGE 0 ML IV SCH (11:43)
[2016-12-11 14:54] VITALS: BP 98/66; PULSE 94; TEMP 36.6; O2SAT 95
[2016-12-11] MEDS: PROMETHAZINE HCL INJ 12.5 MG in SODIUM CHLORIDE 0.9% 50ML 50 ML IV PRN (16:23)
--- NOTE | 2016-12-11 16:35 | Progress Note ---
Subjective Date of Service: Dec 11, 2016. Subjective pt with continued abdominal pain and ileus seen on xray, has no real results with enema, states is passing liquid stools I personally reviewed x ray and CT and can see stool in colon and fluid filled loops of small bowel Problem List Medical Problems: (1) Abdominal pain Status: Acute (2) Abdominal pain Status: Acute (3) Abdominal pain Status: Acute (4) Acute bronchiolitis Status: Acute (5) Acute pulmonary embolism Status: Acute (6) COPD exacerbation Status: Acute (7) COPD exacerbation Status: Acute (8) COPD exacerbation Status: Acute (9) Intractable vomiting Status: Acute (10) Lower abdominal pain Status: Acute (11) Lung cancer Status: Acute (12) Right sided abdominal pain Status: Acute (13) Vomiting Status: Acute Review of Systems Constitutional: No chills, No fever Cardiac: No chest pain, No edema, No orthopnea Abdomen: + constipation, No diarrhea, No nausea, No pain, No vomiting Male : No dysuria, No urinary frequency Psychiatric: No anhedonism, No depression symptoms Objective Vital Signs Date Time Temp Pulse Resp B/P Pulse Ox O2 Delivery O2 Flow Rate FiO2 12/11/16 16:04 Room Air 12/11/16 14:54 36.6 94 20 98/66 95 Room Air 12/11/16 08:00 Room Air 12/11/16 07:01 37.3 107 22 122/83 92 Room Air 12/11/16 00:24 36.9 109 20 126/82 94 Room Air 12/10/16 23:07 114 20 118/82 94 Room Air 12/10/16 22:15 115 20 106/84 96 Room Air 12/10/16 20:59 102 24 128/83 98 Room Air 12/10/16 19:29 36.4 113 20 125/76 98 Room Air Physical Exam General Appearance: WD/WN, + mild distress Neck: supple, no JVD Respiratory/Chest: chest non-tender, lungs clear, normal breath sounds Cardiovascular: regular rate, rhythm, no JVD Abdomen: + abnormal bowel sounds, + distended, + guarding, + tenderness Extremities: no pedal edema, no calf tenderness Neurologic/Psychiatric: alert, oriented x 3 Laboratory Results Last 24 Hours Test 12/10/16 19:55 12/10/16 21:00 White Blood Count 10.92 K/uL Red Blood Count 5.94 M/uL Hemoglobin 17.4 g/dL Hematocrit 50.6 % Mean Corpuscular Volume 85.2 fL Mean Corpuscular Hemoglobin 29.3 pg Mean Corpuscular Hemoglobin Concent 34.4 g/dl Platelet Count 291 K/uL Mean Platelet Volume 9.2 fL Neutrophils (%) (Auto) 81.9 % Lymphocytes (%) (Auto) 9.5 % Monocytes (%) (Auto) 6.8 % Eosinophils (%) (Auto) 0.1 % Basophils (%) (Auto) 0.1 % Neutrophils # (Auto) 8.95 K/uL Lymphocytes # (Auto) 1.04 K/uL Monocytes # (Auto) 0.74 K/uL Eosinophils # (Auto) 0.01 K/uL Basophils # (Auto) 0.01 K/uL RDW Standard Deviation 50.6 fL RDW Coefficient of Variation 16.3 % Immature Granulocyte % (Auto) 1.6 % Immature Granulocyte # (Auto) 0.17 K/uL Sodium Level 141 mmol/L Potassium Level 3.9 mmol/L Chloride Level 104 mmol/L Carbon Dioxide Level 27 mmol/L Anion Gap 10.0 mmol/L Blood Urea Nitrogen 9 mg/dl Creatinine 1.30 mg/dl Est Creatinine Clear Calc Drug Dose 64.1 ml/min Estimated GFR () 70.7 Estimated GFR (Non- 61.0 BUN/Creatinine Ratio 7.0 Random Glucose 142 mg/dl Calcium Level 8.9 mg/dl Total Bilirubin 0.9 mg/dl Direct Bilirubin 0.2 mg/dl Aspartate Amino Transf (AST/SGOT) 14 U/L Alanine Aminotransferase (ALT/SGPT) 44 U/L Alkaline Phosphatase 132 U/L Total Protein 6.5 gm/dl Albumin 3.5 gm/dl Lipase 78 U/L Urine Color DK YELLOW Urine Appearance CLEAR Urine pH 5.0 Urine Specific [place] 1.013 Urine Protein NEG Urine Glucose (UA) NEG Urine Ketones TRACE Urine Occult Blood 1+ Urine Nitrite NEG Urine Bilirubin NEG Urine Urobilinogen NEG Urine Leukocyte Esterase NEG Urine WBC (Auto) 1-5 /hpf Urine RBC (Auto) 5-10 /hpf Urine Hyaline Casts (Auto) 1-5 /lpf Urine Epithelial Cells (Auto) 20-30 /lpf Urine Bacteria (Auto) NEG Assessment and Plan 56M readmitted with ileus, abd pain n/v Abdominal pain - Ileus with moderate fecal colonic retention - tried enema pt was unable to retain, will use relistor in case this is from opiate use, will start senekot and consider miralax, continue mostly npo status COPD chronic 10 mg prednisone. home inhalers. Duonebs PRN. H/O PUD - PPI. H/O lung cancer - remission sometime in the last 2 years. He was being followed closely by pulmonary for this up until recently. Most recent CT with "stable" nodular findings. If vomiting does not improve with above measure will get CT head DVT prevention- lovenox 40 mg SQ daily
[2016-12-11] MEDS: METHYLNALTREXONE BROMIDE INJ 12 MG/0.6 ML SYR SQ SCH (17:39)
[2016-12-11] MEDS: SENNA 8.6 MG TAB PO SCH (21:27)
[2016-12-11] MEDS: POLYETHYLENE (MIRALAX) 17 GM PACK PO SCH (21:27)
[2016-12-12 00:06] VITALS: BP 97/65; PULSE 85; TEMP 36.5; O2SAT 93
[2016-12-12] MEDS: SODIUM CHLORIDE 0.9% 1000ML 1,000 ML IV SCH ×5 (02:37→21:38)
[2016-12-12] MEDS: ACETAMINOPHEN IV 1,000 MG in EMPTY BAG 0 ML IV SCH ×4 (02:42→23:27)
[2016-12-12] MEDS: SENNA 8.6 MG TAB PO SCH ×2 (07:43→20:40)
[2016-12-12] MEDS: ATORVASTATIN 20 MG TAB PO SCH (07:43)
[2016-12-12] MEDS: FLUTICASONE/SALMETEROL (ADVAIR) 500/50 INH 14 PUFF INH SCH ×2 (07:43→20:39)
[2016-12-12] MEDS: POLYETHYLENE (MIRALAX) 17 GM PACK PO SCH ×2 (07:43→13:38)
[2016-12-12] MEDS: CITALOPRAM 20 MG TAB PO SCH (07:44)
[2016-12-12 08:00] VITALS: BP 115/81; PULSE 51; TEMP 36.3; O2SAT 96
[2016-12-12] MEDS: PROMETHAZINE HCL INJ 12.5 MG in SODIUM CHLORIDE 0.9% 50ML 50 ML IV PRN ×2 (08:12→18:15)
--- NOTE | 2016-12-12 08:49 | Clinical Documentation Query ---
BERTRAND Sidhu : CLINICAL DOCUMENTATION QUERY Patient a 56 year old male admitted for evaluation and treatment of abdominal pain secondary to severe constipation. Patient was recently admitted for COPD exacerbation in the setting of influenza, and for somatic complaints recieved multiple doses of IV Morphine and Dilaudid. He was readmitted the day after discharge with complaints of abdominal pain and underwent an aggressive bowel regimen. He has again returned on the day of discharge for complaints of abdominal pain. CT of the abdomen demonstrated moderate colonic fecal retention. No bowel obstruction seen. As appropriate, consider clarification as suggested below as this impacts code assignment. Thank you. In your clinical opinion is this patient being managed for: ( xx) Opiod induced constipation ( ) Other explanation of clinical findings (Please Explain) ( ) Unable to determine (Please Define) ( ) Need to Discuss ( ) Not Agree The medical record reflects the following clinical findings, treatment, and risk factors. Clinical Indicators: As above Treatment: Attempted enema, Senna, Miralax, Relistor, IVF, NGT, bowel rest Risk Factors: Opiod use, physical inactivity Please clarify and document your clinical opinion in the progress notes and discharge summary. Terms such as "probable", "suspected", "likely", "questionable", "possible", or "still to be ruled out" are acceptable. IF IN AGREEMENT, YOU MUST DOCUMENT ABOVE DIAGNOSTIC STATEMENT IN DAILY PROGRESS NOTES AND DISCHARGE SUMMARY. This document is not part of the patient's record. Thank You, Hernando Nguyen, RN [phone]
[2016-12-12 08:52] LABS: HEMATOCRIT 43.3 % (42-52); MEAN CELL VOLUME 86.9 fL (80-100); MEAN CORPUSCULAR HEMOGLOBIN 28.9 pg (25-34); MEAN CORPUSCULAR HGB CONC 33.3 g/dl (32-36); MEAN PLATELET VOLUME 8.9 fL (7.4-10.4); PLATELET COUNT 202 K/uL (130-400); RED BLOOD COUNT 4.98 M/uL (4.7-6.1); WHITE BLOOD COUNT 5.73 K/uL (4.8-10.8)
[2016-12-12 09:21] LABS: CALCIUM 7.7 mg/dl (8.5-10.1); CREATININE 0.72 mg/dl (0.60-1.40); POTASSIUM 3.7 mmol/L (3.5-5.1)
[2016-12-12] MEDS: PANTOprazole INJ 40 MG in SYRINGE 0 ML IV SCH (10:34)
--- NOTE | 2016-12-12 11:21 | DIAGNOSTIC IMAGING REPORT ---
ABDOMEN 2 VIEWS CLINICAL HISTORY: eval for ileus pain COMPARISON STUDY: 12/11/2016 FINDINGS: Interval removal of the nasogastric tube. Improved bowel pattern with no evidence for a significant nonobstructive ileus. IMPRESSION: 1. Interval removal of the nasogastric tube. 2. Minimal nonobstructive ileus improved from the prior study. Electronically signed by: Balaji Barton M.D. 12/12/2016 11:20 AM Dictated Date/Time: 12/12/2016 11:19 AM
[2016-12-12] MEDS: HYDROmorphone INJ 0.5 MG/0.5 ML SYR IV PRN ×2 (13:05→20:36)
--- NOTE | 2016-12-12 13:26 | Progress Note ---
Subjective Date of Service: Dec 12, 2016. Subjective pt feels better and has improved xray although has not shown any stool production, other abdominal pain is improved Problem List Medical Problems: (1) Abdominal pain Status: Acute (2) Abdominal pain Status: Acute (3) Abdominal pain Status: Acute (4) Acute bronchiolitis Status: Acute (5) Acute pulmonary embolism Status: Acute (6) COPD exacerbation Status: Acute (7) COPD exacerbation Status: Acute (8) COPD exacerbation Status: Acute (9) Intractable vomiting Status: Acute (10) Lower abdominal pain Status: Acute (11) Lung cancer Status: Acute (12) Right sided abdominal pain Status: Acute (13) Vomiting Status: Acute Review of Systems Constitutional: No chills, No fever Respiratory: No cough, No shortness of breath Cardiac: No chest pain, No edema Abdomen: + constipation, + pain, No diarrhea, No nausea, No vomiting Musculoskeletal: No joint pain, No muscle pain Male : No dysuria, No incontinence Objective Vital Signs Date Time Temp Pulse Resp B/P Pulse Ox O2 Delivery O2 Flow Rate FiO2 12/12/16 08:00 36.3 51 16 115/81 96 12/12/16 00:06 36.5 85 20 97/65 93 Room Air 12/12/16 00:00 Room Air 12/11/16 22:55 Room Air 12/11/16 16:04 Room Air 12/11/16 14:54 36.6 94 20 98/66 95 Room Air Physical Exam General Appearance: WD/WN, + mild distress Neck: supple, no JVD Respiratory/Chest: chest non-tender, lungs clear, normal breath sounds Cardiovascular: regular rate, rhythm, no murmur Abdomen: normal bowel sounds, soft, + guarding, + tenderness Extremities: no pedal edema, no calf tenderness Assessment and Plan 56M readmitted with ileus, abd pain n/v Abdominal pain - Ileus with moderate fecal colonic retention - opiate induced constipation? use relistor in case this is from opiate use, increase senekot and add miralax, full liquid diet I personally reveiwed abd series x ray 12/12 COPD chronic 10 mg prednisone. home inhalers. Duonebs PRN. H/O PUD - PPI. H/O lung cancer - remission sometime in the last 2 years. He was being followed closely by pulmonary for this up until recently. Most recent CT with "stable" nodular findings. If vomiting does not improve with above measure will get CT head DVT prevention- lovenox 40 mg SQ daily
[2016-12-12 15:54] VITALS: BP 105/71; PULSE 108; TEMP 36.7; O2SAT 96
[2016-12-12 23:57] VITALS: BP 122/88; PULSE 91; TEMP 37; O2SAT 96
[2016-12-13] MEDS: TEMAZEPAM 15 MG CAP PO PRN (00:57)
[2016-12-13] MEDS: SODIUM CHLORIDE 0.9% 1000ML 1,000 ML IV SCH ×3 (01:58→12:15)
[2016-12-13] MEDS: HYDROmorphone INJ 0.5 MG/0.5 ML SYR IV PRN (05:32)
[2016-12-13] MEDS: PROMETHAZINE HCL INJ 12.5 MG in SODIUM CHLORIDE 0.9% 50ML 50 ML IV PRN (05:36)
[2016-12-13 05:49] LABS: HEMATOCRIT 42.7 % (42-52); MEAN CELL VOLUME 87.9 fL (80-100); MEAN CORPUSCULAR HEMOGLOBIN 28.8 pg (25-34); MEAN CORPUSCULAR HGB CONC 32.8 g/dl (32-36); MEAN PLATELET VOLUME 9.3 fL (7.4-10.4); PLATELET COUNT 220 K/uL (130-400); RED BLOOD COUNT 4.86 M/uL (4.7-6.1); WHITE BLOOD COUNT 6.67 K/uL (4.8-10.8)
[2016-12-13 06:21] LABS: BUN/CREATININE RATIO 5.4 (10-20); CALCIUM 7.7 mg/dl (8.5-10.1); CREATININE 0.78 mg/dl (0.60-1.40); POTASSIUM 3.7 mmol/L (3.5-5.1)
[2016-12-13 07:24] VITALS: BP 124/88; PULSE 84; TEMP 36.3; O2SAT 98
[2016-12-13] MEDS: FLUTICASONE/SALMETEROL (ADVAIR) 500/50 INH 14 PUFF INH SCH (07:41)
[2016-12-13] MEDS: POLYETHYLENE (MIRALAX) 17 GM PACK PO SCH (07:42)
[2016-12-13] MEDS: ATORVASTATIN 20 MG TAB PO SCH (07:42)
[2016-12-13] MEDS: CITALOPRAM 20 MG TAB PO SCH (07:42)
[2016-12-13] MEDS: SENNA 8.6 MG TAB PO SCH (07:42)
[2016-12-13] MEDS: ACETAMINOPHEN IV 1,000 MG in EMPTY BAG 0 ML IV SCH (08:00)
[2016-12-13] MEDS ORDERED: NURSING VERBAL MED ORDER ONE (08:15)
[2016-12-13] MEDS ORDERED: HYDROmorphone INJ 0.5 MG/0.5 ML SYR IV ONE (08:45)
--- NOTE | 2016-12-13 11:04 | Discharge Instructions ---
Discharge Instructions Date of Service Dec 13, 2016. Admission Reason for Admission: Chronic Abdominal Pain, Constipation, Ileus, Discharge Discharge Diagnosis / Problem: ileus and constipation Discharge Goals Goal(s): Diagnostic testing Activity Recommendations Activity Limitations: resume your previous activity . Instructions / Follow-Up Instructions / Follow-Up you should have at least one bowel movement a day, if you do not please double your miralax, if this does not work and you have no stool in two days contact your primary care provider Current Hospital Diet Patient's current hospital diet: Regular Diet Discharge Diet Recommended Diet: Regular Diet Pending Studies Studies pending at discharge: no Laboratory Results Lipid Panel Test 09/25/16 14:10 Range/Units Triglycerides Level 205 H 0-150 mg/dl Cholesterol Level 161 0-200 mg/dl HDL Cholesterol 46 mg/dl Cholesterol/HDL Ratio 3.5 LDL Cholesterol, Calculated 74 mg/dl Medical Emergencies . Who to Call and When: Medical Emergencies: If at any time you feel your situation is an emergency, please call 911 immediately. . Non-Emergent Contact Non-Emergency issues call your: Primary Care Provider Call Non-Emergent contact if: temperature is above 101, your pain is unusual for you . . "Provider Documentation" section prepared by Rodo Ludwig. VTE Core Measure Inpt VTE Proph given/why not?: Treatment not indicated
[2016-12-13] MEDS ORDERED: HYDROmorphone INJ 0.5 MG/0.5 ML SYR IV STA (11:07)
[2016-12-13] MEDS ORDERED: HYDROmorphone INJ 0.5 MG/0.5 ML SYR IV PRN (11:15)
[2016-12-13] MEDS: PANTOprazole INJ 40 MG in SYRINGE 0 ML IV SCH (11:15)
[2016-12-13] MEDS ORDERED: HYDROmorphone INJ 1 MG/ML SYR IV PRN (11:15)
[2016-12-13 11:59] VITALS: BP 124/88; PULSE 84; TEMP 36.3; O2SAT 98
[2016-12-13] MEDS: METHYLNALTREXONE BROMIDE INJ 12 MG/0.6 ML SYR SQ SCH (12:48)
--- NOTE | 2016-12-13 14:23 | Discharge Summary ---
Discharge Summary Date of Service Dec 13, 2016. Discharge Summary Admission Date: Dec 11, 2016 at 16:23 Discharge Date: Dec 13, 2016 Discharge Disposition: Home Principal Diagnosis: opiate induced constipation, ileus Immunizations: Have You Had Influenza Vaccine: No History of Tetanus Vaccine?: Unknown History of Pneumococcal: No History of Hepatitis B Vaccine: No Procedures: did receive 2 doses of relistor Medication Reconciliation Continued Medications: Albuterol Sulf (Proventil 0.083% 2.5MG/3ML) 2.5 Mg/3 Ml Nebu 3 ML NEB Q4-6HRS PRN for SOB/Wheezing Atorvastatin (Atorvastatin Calcium) 20 Mg Tab 20 MG PO QAM Citalopram (Citalopram Hydrobromide) 20 Mg Tab 20 MG PO QAM Fluticasone Prop/Salmeterol (Advair Diskus 500/50 60 Dose) 1 Ea Aerp 1 PUFF INH BID, #60 Ipratropium-Albuterol (Combivent Respimat) 1 Aer Aer 1 PUFF INH QID PRN for Shortness of Breath, INH Lubiprostone (Amitiza) 8 Mcg Cap 24 MCG PO BID, #180 CAP 3 Refills Pantoprazole (Pantoprazole Sodium) 40 Mg Tab 40 MG PO QAM Polyethylene (Miralax) 17 Gm Pow 17 GM PO BID for 30 Days, #60 PKT 3 Refills Prednisone Tab (Prednisone) 10 Mg Tab 10 MG PO DAILY, TAB Temazepam (Restoril) 30 Mg Cap 30 MG PO HS PRN for Sleep, CAP Discharge Exam Review of Systems: Constitutional: No chills, No fever ENT: No hearing loss, No sore throat Respiratory: No cough, No dyspnea on exertion, No shortness of breath Cardiovascular: No chest pain, No edema, No orthopnea Abdomen: No diarrhea, No nausea, No pain, No vomiting Genitourinary - Female: No dysuria, No urinary frequency Neurologic: No memory loss, No paralysis Physical Exam: General Appearance: WD/WN, no apparent distress Neck: supple, no JVD Respiratory/Chest: chest non-tender, lungs clear, normal breath sounds Cardiovascular: regular rate, rhythm, normal peripheral pulses Abdomen / GI: normal bowel sounds, non tender, soft Neurologic/Psychiatric: alert, oriented x 3 Hospital Course 56 M readmitted with ileus, abd pain n/v Abdominal pain - Ileus with moderate fecal colonic retention - opiate induced constipation improved with relistor home with amitiza and miralax, with instructions to have at least a bowel movement every one or two days COPD chronic 10 mg prednisone. home inhalers. Duonebs PRN. H/O PUD - PPI. H/O lung cancer - remission sometime in the last 2 years. He was being followed closely by pulmonary for this up until recently. Most recent CT with "stable" nodular findings. If vomiting does not improve with above measure will get CT head Total Time Spent: Greater than 30 minutes This includes examination of the patient, discharge planning, medication reconciliation, and communication with other providers. Discharge Instructions Please refer to the electronic Patient Visit Report (Discharge Instructions) for additional information.
== END 2016-12-13 12:54 | disposition home or self-care (01) | DRG 392 ==
LOC: ENRESERVDT → ENRESERVTM → C.EDB 19:28 → C.MS4W 23:13 → OBSVTOIN 12-11 16:23
PROVIDERS: ADMIT Hospitalist; ATTEND Hospitalist
DX: K59.03 Drug induced constipation (principal); K56.7 Ileus, unspecified; T40.2X5A Adverse effect of other opioids, initial encounter; Z86.711 Personal history of pulmonary embolism; Z87.891 Personal history of nicotine dependence; J44.9 Chronic obstructive pulmonary disease, unspecified; Z79.52 Long term (current) use of systemic steroids; Y92.009 Unspecified place in unspecified non-institutional (private) residence as the place of occurrence of the external cause; Z85.118 Personal history of other malignant neoplasm of bronchus and lung

== ENCOUNTER → 2017-04-03 | Outpatient (CLI) | payer OTHER ==
[~2017-04-03] MED LIST changes: +ADVIN50/60 INH; -DXY100 PO; -MOME200A INH; -NYSS5 PO; -SPRIN/30 INH; -TMF75 PO
[2017-04-03 17:12] LABS: ALT/SGPT 21 U/L (12-78); BLOOD UREA NITROGEN 9 mg/dl (7-18); BUN/CREATININE RATIO 8.7 (10-20); CALCIUM 9.1 mg/dl (8.5-10.1); CARBON DIOXIDE 26 mmol/L (21-32); CHLORIDE 110 mmol/L (98-107); CHOLESTEROL 205 mg/dl (0-200); GLUCOSE 99 mg/dl (70-99); POTASSIUM 3.8 mmol/L (3.5-5.1); SODIUM 143 mmol/L (136-145); TRIGLYCERIDES 150 mg/dl (0-150); VERY LOW DENSITY LIPOPROT CALC 30 mg/dl
[2017-04-03 17:17] LABS: ALKALINE PHOSPHATASE 86 U/L (45-117); AST/SGOT 8 U/L (15-37); CHOLESTEROL/HDL RATIO 4.9; HDL CHOLESTEROL 42 mg/dl; LDL CHOLESTEROL CALCULATED 133 mg/dl
[2017-04-04 05:47] LABS: ESTIMATED AVERAGE GLUCOSE 126 mg/dl; HA1C FLAG Normal (Normal)
== END | disposition home or self-care (01) ==
LOC: C.LABBFT 15:25
PROVIDERS: ATTEND Internal Medicine
DX: E78.00 Pure hypercholesterolemia, unspecified (principal); R73.9 Hyperglycemia, unspecified; Z12.5 Encounter for screening for malignant neoplasm of prostate

== ENCOUNTER → 2017-04-13 | Outpatient (CLI) | payer OTHER ==
[~2017-04-13] MED LIST changes: +OPTIRAY 320 IV PRN
--- NOTE | 2017-04-13 14:42 | DIAGNOSTIC IMAGING REPORT ---
CT SCAN OF THE CHEST WITH IV CONTRAST CLINICAL HISTORY: Lung cancer follow-up. COMPARISON STUDY: Chest CT scans dated 12/01/2016 and 08/07/2014. TECHNIQUE: Following the IV administration of 114 cc of Optiray 320, CT scan of the thorax was performed from the thoracic inlet to the upper abdomen. Images are reviewed in the axial, sagittal, and coronal planes. IV contrast was administered without complication. CT DOSE: 256.58 mGycm FINDINGS: Thyroid: Imaged portions of the thyroid gland are normal in size and attenuation. Thoracic aorta: There is mild atherosclerotic calcification of the thoracic aorta, which is normal in caliber and demonstrates standard 3-vessel arch anatomy. No dissection is seen. A left subclavian central venous infusion port is in place. Pulmonary vasculature: The pulmonary trunk is normal in caliber. There are no filling defects identified in the central pulmonary vessels to indicate pulmonary embolus. Note that this examination was not protocoled for evaluation of the pulmonary arteries. Heart: The heart is normal in size and configuration, and without pericardial effusion. There are coronary artery calcifications. Lungs and pleural spaces: There is advanced emphysema. No airspace consolidation or pleural effusion is identified. There is a 10 mm spiculated nodule in the left upper lobe seen on image #145 and a 9 mm spiculated nodule in the left upper lobe seen on image #100. There is a 1.3 cm spiculated nodule in the right upper lobe as seen on image #125 and a 1.2 cm spiculated nodule in the right upper lobe as seen on image #149. These are located within regions of scarring. Numerous additional 4 to 5 mm nodules are seen in the right upper lobe on images #84, #107, #115, and #131. These findings are similar to the 12/01/2016 examination. The trachea and central airways appear clear. Mediastinum: There is no mediastinal lymphadenopathy. A calcification containing precarinal node is similar to previous. Elisa: Clear. Axillae: There is no axillary lymphadenopathy. Upper abdomen: Cholecystectomy clips are noted. Partially visualized upper abdominal viscera is otherwise within normal limits. Skeletal structures: No lytic or blastic bony lesions are seen. There are healed right-sided rib fractures. IMPRESSION: 1. Advanced emphysema. 2. There are numerous irregular/spiculated appearing pulmonary nodules identified in both lungs. These are pathologically indeterminant and similar in both size and distribution to the 12/01/2016 examination. 3. No airspace consolidation or pleural effusion is identified. 4. There are no pathologically enlarged mediastinal lymph nodes. 5. Additional findings as above. Electronically signed by: Jorge Alberto Webber M.D. 04/13/2017 2:40 PM Dictated Date/Time: 04/13/2017 2:30 PM
== END | disposition home or self-care (01) ==
LOC: C.CTS 13:48
PROVIDERS: ATTEND Internal Medicine Pulmonary Disease
DX: C34.90 Malignant neoplasm of unspecified part of unspecified bronchus or lung (principal); J43.9 Emphysema, unspecified; R91.8 Other nonspecific abnormal finding of lung field

== ENCOUNTER → 2017-07-13 | Outpatient (CLI) | payer OTHER ==
[~2017-07-13] MED LIST changes: -OPTIRAY 320 IV PRN
== END | disposition home or self-care (01) ==
LOC: C.LABBFT 12:26
PROVIDERS: ATTEND Internal Medicine
DX: Z11.59 Encounter for screening for other viral diseases (principal); R97.20 Elevated prostate specific antigen [PSA]

== ENCOUNTER 2017-10-04 20:07 | Observation (INO) | payer OTHER ==
[~2017-10-04] VITALS: Ht 185.4 cm; Wt 74.5 kg
[~2017-10-04 20:07] MED LIST changes: -ADVIN50/60 INH; +PANT40TA2 PO; -PRT/40 PO
[2017-10-04] MEDS ORDERED: ADVIN50/60 INH (20:21)
[2017-10-04] MEDS ORDERED: SODIUM CHLORIDE 0.9% 1000ML 1,000 ML IV STA (20:39)
[2017-10-04] MEDS ORDERED: METHYLPREDNISOLONE 125 MG VIAL IV STA (20:39)
[2017-10-04] MEDS ORDERED: MAGNESIUM SULFATE 1GM / D5W 1 GM BAG IV STA (20:39)
[2017-10-04] MEDS ORDERED: AZITHROMYCIN 250 MG TAB PO ONE (20:45)
[2017-10-04] MEDS ORDERED: ALBUT/IPRATROP 3MG/0.5MG NEB 3 ML VIAL INH ONE ×2 (20:45→22:00)
[2017-10-04 20:57] LABS: BASO % 0.3 %; BASO ABS # 0.03 K/uL (0-0.2); EOS % 0.4 %; EOS ABS # 0.05 K/uL (0-0.5); HEMATOCRIT 51.2 % (42-52); HEMOGLOBIN 17.3 g/dL (14.0-18.0); IG# 0.04 K/uL (0.00-0.02); LYMPH % 14.1 %; LYMPH ABS # 1.62 K/uL (1.2-3.4); MEAN CELL VOLUME 87.7 fL (80-100); MEAN CORPUSCULAR HEMOGLOBIN 29.6 pg (25-34); MEAN CORPUSCULAR HGB CONC 33.8 g/dl (32-36); MEAN PLATELET VOLUME 9.1 fL (7.4-10.4); MONO ABS # 0.92 K/uL (0.11-0.59); NEUT % 76.9 %; NEUT ABS # 8.86 K/uL (1.4-6.5); PLATELET COUNT 249 K/uL (130-400); RED CELL DISTRIBUTION WIDTH CV 16.5 % (11.5-14.5); RED CELL DISTRIBUTION WIDTH SD 53.2 fL (36.4-46.3); WHITE BLOOD COUNT 11.52 K/uL (4.8-10.8)
[2017-10-04 21:00] VITALS: PULSE 103; O2SAT 94
--- NOTE | 2017-10-04 21:12 | DIAGNOSTIC IMAGING REPORT ---
CHEST ONE VIEW PORTABLE CLINICAL HISTORY: CHEST PAIN dyspnea COMPARISON STUDY: 2016 FINDINGS: Central catheter in superior vena cava. Mild emphysematous change. Mild chronic basilar interstitial change. No focal infiltrate. Diaphragms smooth. IMPRESSION: Chronic and emphysematous change. No acute process. The above report was generated using voice recognition software. It may contain grammatical, syntax or spelling errors. Electronically signed by: Balaji Barton M.D. 10/04/2017 9:10 PM Dictated Date/Time: 10/04/2017 9:09 PM
[2017-10-04 21:13] LABS: ALBUMIN 3.5 gm/dl (3.4-5.0); ALT/SGPT 25 U/L (12-78); BLOOD UREA NITROGEN 13 mg/dl (7-18); CALCIUM 8.5 mg/dl (8.5-10.1); CARBON DIOXIDE 28 mmol/L (21-32); CREATININE 0.93 mg/dl (0.60-1.40); GLUCOSE 92 mg/dl (70-99); LIPASE 156 U/L (73-393); POTASSIUM 3.6 mmol/L (3.5-5.1); SODIUM 141 mmol/L (136-145)
[2017-10-04 21:19] LABS: ALKALINE PHOSPHATASE 90 U/L (45-117); AST/SGOT 12 U/L (15-37); TOTAL PROTEIN 6.7 gm/dl (6.4-8.2)
[2017-10-04] MEDS ORDERED: LUBI8CAP4 PO (21:37)
[2017-10-04] MEDS ORDERED: PRED10TA PO (21:37)
[2017-10-04] MEDS ORDERED: UMEC1INH INH (21:57)
[2017-10-04 22:07] VITALS: PULSE 107; O2SAT 94
[2017-10-04] MEDS ORDERED: OPTIRAY 320 IV PRN (22:30)
--- NOTE | 2017-10-05 01:09 | EMERGENCY ROOM VISIT NOTE ---
History Report prepared by Valerie: Selvin Magallnaes Under the Supervision of: Dr. Ricardo Nash M.D. First contact with patient: 20:20 Chief Complaint: RESPIRATORY PROBLEMS Stated Complaint: BREATHING AND COUGH- POSSIBLE PNEUMONIA History of Present Illness The patient is a 57 year old male who presents to the Emergency Room with complaints of a persistent cough beginning four days ago. The patient also complains of shortness of breath and constant left sided chest pain. He has a history of lung cancer and is currently considered to be in remission. He was diagnosed five years ago, and was declared to be in remission three years ago. The patient's cough produces a "whitish" sputum. He is a former smoker but quit when he was diagnosed with lung cancer. He denies nausea, diarrhea, urinary symptoms, headaches, or vomiting. The patient's chest pain is not worsened with coughing. Source of History: patient Onset: Four days ago Quality: other (productive cough) Timing: other (persistent) Associated Symptoms: + chest pain (constant, left side), + SOB, No fevers, No headache, No nausea, No vomiting, No diarrhea, No urinary symptoms Review of Systems See HPI for pertinent positives and negatives. A total of ten systems were reviewed and were otherwise negative. Past Medical & Surgical Medical Problems: (1) Constipation (2) GI bleed (3) Hypertension (4) Ileus (5) Lung cancer (6) Mediport (7) Non-small cell lung cancer (8) Peptic Ulcer Disease (9) Pulmonary embolism (10) SOB (shortness of breath) Family History Cancer Diabetes mellitus Gallbladder disease Heart disease Hypertension Kidney stones Social History Smoking Status: Former Smoker Alcohol Use: none Drug Use: none Marital Status: single Housing Status: lives alone Occupation Status: unemployed Current/Historical Medications Scheduled Citalopram (Citalopram Hydrobromide), 20 MG PO QAM Fluticasone Prop/Salmeterol (Advair Diskus 500/50 60 Dose), 1 PUFF INH BID Lubiprostone (Amitiza), 8 MCG PO BID Pantoprazole (Pantoprazole Sodium), 40 MG PO QAM Prednisone (Prednisone), 10 MG PO DAILY Umeclidinium Risingsun (Incruse Ellipta), 1 PUFF INH QPM Scheduled PRN Albuterol Sulf (Proventil 0.083% 2.5MG/3ML), 3 ML NEB Q4-6HRS PRN for SOB/ Wheezing Ipratropium-Albuterol (Combivent Respimat), 1 PUFF INH QID PRN for Shortness of Breath Temazepam (Restoril), 30 MG PO HS PRN for Sleep Allergies Coded Allergies: No Known Allergies (Verified , 07/28/16) Physical Exam Vital Signs Date Time Temp Pulse Resp B/P (MAP) Pulse Ox O2 Delivery O2 Flow Rate FiO2 10/05/17 01:20 115 27 93 10/05/17 01:05 121 25 94 10/05/17 01:00 110/71 10/05/17 00:50 121 17 90 10/05/17 00:35 118 96 10/05/17 00:30 87 Room Air 10/05/17 00:20 121 29 92 10/05/17 00:13 120 10/05/17 00:05 121 24 94 10/05/17 00:00 97/73 10/04/17 23:57 102/63 10/04/17 23:50 120 25 93 10/04/17 23:35 125 29 93 10/04/17 23:20 126 19 98 10/04/17 23:15 120 16 100 10/04/17 23:13 120 20 91/63 100 Nebulizer 10.0 10/04/17 22:45 115 24 99 10/04/17 22:21 108 20 98/69 99 Nebulizer 10/04/17 22:07 107 22 94 Room Air 10/04/17 21:38 105 22 93/63 97 Nebulizer 10/04/17 21:07 98 22 93/73 98 Nebulizer 10/04/17 21:00 103 22 94 Room Air 10/04/17 20:22 106 10/04/17 20:18 98 Room Air 10/04/17 20:18 98 Room Air 10/04/17 20:10 36.3 118 20 104/65 97 Room Air Physical Exam GENERAL: Awake, alert, uncomfortable-appearing, in no distress HENT: Normocephalic, atraumatic. Dry mucous membranes. EYES: Normal conjunctiva. Sclera non-icteric. NECK: Supple. No nuchal rigidity. FROM. No JVD. RESPIRATORY: Scattered rhonchi and wheezes. CARDIAC: Regular rate, normal rhythm. Extremities warm and well perfused. Pulses equal. ABDOMEN: Soft, non-distended. No tenderness to palpation. No rebound or guarding. No masses. RECTAL: Deferred. MUSCULOSKELETAL: Chest examination reveals no tenderness. The back is symmetrical on inspection without obvious abnormality. There is no CVA tenderness to palpation. No joint edema. LOWER EXTREMITIES: Calves are equal size bilaterally and non-tender. No edema. No discoloration. NEURO: Normal sensorium. No sensory or motor deficits noted. SKIN: No rash or jaundice noted. Medical Decision & Procedures ER Provider Diagnostic Interpretation: x-ray results as stated below per my review and radiologist interpretation: CHEST ONE VIEW PORTABLE FINDINGS: Central catheter in superior vena cava. Mild emphysematous change. Mild chronic basilar interstitial change. No focal infiltrate. Diaphragms smooth. IMPRESSION: Chronic and emphysematous change. No acute process. The above report was generated using voice recognition software. It may contain grammatical, syntax or spelling errors. Electronically signed by: Balaji Barton M.D. 10/04/2017 9:[address] results per statrad and my review. CTA CHEST: Comparison: CTA dated 04/13/2017. No evidence of pulmonary embolism. Mild atherosclerotic vascular disease. No thoracic aortic aneurysm or dissection. Advanced emphysematous changes in the lungs with several irregular areas of nodular density in the bilateral lungs, stable compared to prior CTA. These may represent areas of scarring although are indeterminate. No focal consolidation, pulmonary edema, pleural effusion, or pneumothorax. Normal cardiac size. Trace pericardial fluid/effusion, stable. Additional/incidental findings: left chest wall Port-A-Cath with tip not seen due to dense adjacent contrast. Stable healed rib fractures. Laboratory Results 10/04/17 20:39 Red Blood Count 5.84, Mean Corpuscular Volume 87.7, Mean Corpuscular Hemoglobin 29.6, Mean Corpuscular Hemoglobin Concent 33.8, Mean Platelet Volume 9.1, Neutrophils (%) (Auto) 76.9, Lymphocytes (%) (Auto) 14.1, Monocytes (%) (Auto) 8.0, Eosinophils (%) (Auto) 0.4, Basophils (%) (Auto) 0.3, Neutrophils # (Auto) 8.86, Lymphocytes # (Auto) 1.62, Monocytes # (Auto) 0.92, Eosinophils # (Auto) 0.05, Basophils # (Auto) 0.03 10/04/17 20:39 Test 10/04/17 20:39 White Blood Count 11.52 K/uL (4.8-10.8) Red Blood Count 5.84 M/uL (4.7-6.1) Hemoglobin 17.3 g/dL (14.0-18.0) Hematocrit 51.2 % (42-52) Mean Corpuscular Volume 87.7 fL (80-100) Mean Corpuscular Hemoglobin 29.6 pg (25-34) Mean Corpuscular Hemoglobin Concent 33.8 g/dl (32-36) Platelet Count 249 K/uL (130-400) Mean Platelet Volume 9.1 fL (7.4-10.4) Neutrophils (%) (Auto) 76.9 % Lymphocytes (%) (Auto) 14.1 % Monocytes (%) (Auto) 8.0 % Eosinophils (%) (Auto) 0.4 % Basophils (%) (Auto) 0.3 % Neutrophils # (Auto) 8.86 K/uL (1.4-6.5) Lymphocytes # (Auto) 1.62 K/uL (1.2-3.4) Monocytes # (Auto) 0.92 K/uL (0.11-0.59) Eosinophils # (Auto) 0.05 K/uL (0-0.5) Basophils # (Auto) 0.03 K/uL (0-0.2) RDW Standard Deviation 53.2 fL (36.4-46.3) RDW Coefficient of Variation 16.5 % (11.5-14.5) Immature Granulocyte % (Auto) 0.3 % Immature Granulocyte # (Auto) 0.04 K/uL (0.00-0.02) Anion Gap 7.0 mmol/L (3-11) Est Creatinine Clear Calc Drug Dose 92.3 ml/min Estimated GFR () 105.2 Estimated GFR (Non- 90.8 BUN/Creatinine Ratio 13.5 (10-20) Calcium Level 8.5 mg/dl (8.5-10.1) Total Bilirubin 0.5 mg/dl (0.2-1) Direct Bilirubin 0.1 mg/dl (0-0.2) Aspartate Amino Transf (AST/SGOT) 12 U/L (15-37) Alanine Aminotransferase (ALT/SGPT) 25 U/L (12-78) Alkaline Phosphatase 90 U/L (45-117) Troponin I < 0.015 ng/ml (0-0.045) Total Protein 6.7 gm/dl (6.4-8.2) Albumin 3.5 gm/dl (3.4-5.0) Lipase 156 U/L (73-393) Laboratory results reviewed by me Medications Administered Medications (Trade) Dose Ordered Sig/Dae Route Start Time Stop Time Status Last Admin Dose Admin Sodium Chloride 1,000 ml @ 999 mls/hr Q1H1M STAT IV 10/04/17 20:39 10/04/17 21:39 DC 10/04/17 20:51 999 MLS/HR Albuterol/ Ipratropium (Duoneb) 12 ml ONE ONCE INH 10/04/17 20:45 10/04/17 20:46 DC 10/04/17 20:57 12 ML Methylprednisolone Sodium Succinate (Solu-Medrol IV) 125 mg NOW STAT IV 10/04/17 20:39 10/04/17 20:46 DC 10/04/17 20:51 125 MG Azithromycin (Zithromax Tab) 500 mg NOW ONCE PO 10/04/17 20:45 10/04/17 20:46 DC 10/04/17 20:51 500 MG Magnesium Sulfate (Magnesium Sulfate) 2 gm NOW STAT IV 10/04/17 20:39 10/04/17 20:46 DC 10/04/17 20:51 2 GM Albuterol/ Ipratropium (Duoneb) 12 ml ONE ONCE INH 10/04/17 22:00 10/04/17 22:01 DC 10/04/17 22:05 12 ML ECG Indication: SOB/dyspnea Rate (beats per minute): 107 Rhythm: sinus tachycardia Findings: no acute ischemic change, other (Normal axis) ED Course 2020: The patient was evaluated in room B2. A complete history and physical exam was performed. 0130: Upon reexamination, the patient was resting comfortably. I discussed the test results and treatment plan with him. The patient will be evaluated for further management. Medical Decision I reviewed the patient's past medical history, medications, and the nursing notes as described above. The patient's presentation and history were concerning for pneumonia, bronchitis , ACS, CHF, PE, and COPD. The patient is a 57-year-old gentleman with a past medical history of lung cancer L remission for the past several years remote history of PE as well not on anticoagulation and remote history of smoking presents to emergency department with worsening cough congestion per history of present illness. I' ll the patient mildly uncomfortable but in no acute distress. Afebrile stable vital signs. On exam the patient has diffuse rhonchi and wheezes throughout with diminished breath sounds throughout. He was given hour of continuous neb steroids and magnesium with marginal improvement. Azithro given for sputum production. Repeat hour-long continuous neb was provided with some additional improvement however still with poor air movement. Chest x-ray unremarkable however given the patient's history of cancer CT PE was done and negative for malignancy, pneumonia, PE, but did show significant emphysema. Patient was attempted at home with ambulatory pulse ox trial and became significantly dyspneic and desaturated to 87% on room air. Thus we'll admit the patient for COPD exacerbation. Case d/w BRYAN Olivas hospitalist, who will admit the patient for further management. Medication Reconcilliation Current Medication List: was personally reviewed by me Blood Pressure Screening Patient's blood pressure: Normal blood pressure Blood pressure disposition: Did not require urgent referral Consults Time Called: 0125 Consulting Physician: Dr. Mellisa NAGY Returned Call: 0130 I discussed the patient with Dr. Mellisa ADAMS will evaluate the patient for further treatment. Impression Primary Impression: COPD with exacerbation Scribe Attestation The scribe's documentation has been prepared under my direction and personally reviewed by me in its entirety. I confirm that the note above accurately reflects all work, treatment, procedures, and medical decision making performed by me. Departure Information Dispostion Being Evaluated By Hospitalist Referrals Isak Zuniga M.D. (PCP) Patient Instructions My [facility]
[2017-10-05] MEDS ORDERED: KETOROLAC TROMETHAMINE 30 MG/ML VIAL IV PRN (01:30)
[2017-10-05] MEDS ORDERED: TEMAZEPAM 15 MG CAP PO PRN (01:30)
[2017-10-05] MEDS ORDERED: ONDANSETRON 8MG OD TAB PO PRN (01:30)
[2017-10-05] MEDS ORDERED: ALBUT/IPRATROP 3MG/0.5MG NEB 3 ML VIAL INH PRN (01:30)
[2017-10-05] MEDS ORDERED: ACETAMINOPHEN 325 MG TAB PO PRN (01:30)
--- NOTE | 2017-10-05 01:33 | History and Physical ---
History & Physical Date & Time of Service: Oct 05, 2017 at 01:33 Chief Complaint: Breathing And Cough- Possible Pneumonia Primary Care Physician: Naty Zuniga M.D. History of Present Illness Source: patient, hospital records The patient is a 57-year-old male with a past medical history of COPD, non- small cell lung cancer, who presents to emergency department with 4 days of shortness of breath. He presents to the emergency department because friends told him that he should be assessed because of his previous history. He's been using his nebulizers and inhalers at home without significant improvement in his condition. He reports that his ribs hurt when he coughs. He has occasional whitish sputum, which is not uncommon for him. He's had no fevers or chills. He reports no change in his chronic abdominal pain. Past Medical/Surgical History Medical Problems: (1) Lung cancer Status: Chronic (2) Mediport Status: Resolved (3) Non-small cell lung cancer Status: Chronic (4) Peptic Ulcer Disease Status: Chronic Family History Cancer Diabetes mellitus Gallbladder disease Heart disease Hypertension Kidney stones Social History Smoking Status: Former Smoker Smokeless Tobacco Use: No Alcohol Use: none Drug Use: none Marital Status: single Housing status: lives alone Occupational Status: unemployed Immunizations History of Influenza Vaccine: No History of Tetanus Vaccine?: Unknown History of Pneumococcal: No History of Hepatitis B Vaccine: No Multi-Drug Resistant Organisms History of MDRO: No Allergies Coded Allergies: No Known Allergies (Verified , 07/28/16) Home Medications Scheduled Citalopram (Citalopram Hydrobromide), 20 MG PO QAM Fluticasone Prop/Salmeterol (Advair Diskus 500/50 60 Dose), 1 PUFF INH BID Lubiprostone (Amitiza), 8 MCG PO BID Pantoprazole (Pantoprazole Sodium), 40 MG PO QAM Prednisone (Prednisone), 10 MG PO DAILY Umeclidinium Bim (Incruse Ellipta), 1 PUFF INH QPM Scheduled PRN Albuterol Sulf (Proventil 0.083% 2.5MG/3ML), 3 ML NEB Q4-6HRS PRN for SOB/ Wheezing Ipratropium-Albuterol (Combivent Respimat), 1 PUFF INH QID PRN for Shortness of Breath Temazepam (Restoril), 30 MG PO HS PRN for Sleep Review of Systems The patient denies palpitations, any change in baseline cough, lower extremity swelling, vision change, hearing change, sore throat, fevers, chills, sweats, weight change, fatigue, nausea, vomiting, diarrhea or constipation, any change in chronic abdominal pain, pelvic pain, blood in urine or stool, dysuria, urinary frequency or urgency, lightheadedness , dizziness, headache, memory loss, loss of consciousness, rash, abnormal bruising or bleeding, imbalance, focal or generalized weakness, numbness or tingling in arms or legs, generalized arthralgias or myalgias, back or neck pain, or night sweats. The review of systems is otherwise negative other than for that already noted above, and at least 10 systems have been reviewed. Physical Exam Vital Signs Date Time Temp Pulse Resp B/P (MAP) Pulse Ox O2 Delivery O2 Flow Rate FiO2 10/05/17 00:30 87 Room Air 10/05/17 00:13 120 10/04/17 23:15 120 16 100 10/04/17 23:13 120 20 91/63 100 Nebulizer 10.0 10/04/17 22:45 115 24 99 10/04/17 22:21 108 20 98/69 99 Nebulizer 10/04/17 22:07 107 22 94 Room Air 10/04/17 21:38 105 22 93/63 97 Nebulizer 10/04/17 21:07 98 22 93/73 98 Nebulizer 10/04/17 21:00 103 22 94 Room Air 10/04/17 20:22 106 10/04/17 20:18 98 Room Air 10/04/17 20:18 98 Room Air 10/04/17 20:10 36.3 118 20 104/65 97 Room Air The patient is awake, well-developed and adequately nourished, alert and oriented 3, normocephalic and atraumatic, lying in bed and in no acute distress. HEENT--PERRL, EOMI, mucous membranes and oropharynx dry. Neck--supple, no JVD or bruits, thyroid normal, trachea midline, no adenopathy. Heart--normal S1 and S2, no extra beats, no murmurs, rubs or gallops. Lungs--overall decreased throughout, no respiratory distress, no accessory muscle use. Abdomen--normal bowel sounds and soft, nontender and nondistended, no hernias or masses, no organomegaly. Extremities--no cyanosis, clubbing or edema. There are good distal pulses b/l. Dermatologic--normal skin turgor, normal color, warm and dry, no abnormal lymph nodes, no rash. Neurologic--cranial nerves II through XII grossly intact. Rheumatologic--normal range of motion. Psychiatric--normal affect. Diagnostics Laboratory Results Results Past 24 Hours Test 10/04/17 20:39 10/05/17 01:09 Range/Units White Blood Count 11.52 4.8-10.8 K/uL Red Blood Count 5.84 4.7-6.1 M/uL Hemoglobin 17.3 14.0-18.0 g/dL Hematocrit 51.2 42-52 % Mean Corpuscular Volume 87.7 80-100 fL Mean Corpuscular Hemoglobin 29.6 25-34 pg Mean Corpuscular Hemoglobin Concent 33.8 32-36 g/dl Platelet Count 249 130-400 K/uL Mean Platelet Volume 9.1 7.4-10.4 fL Neutrophils (%) (Auto) 76.9 % Lymphocytes (%) (Auto) 14.1 % Monocytes (%) (Auto) 8.0 % Eosinophils (%) (Auto) 0.4 % Basophils (%) (Auto) 0.3 % Neutrophils # (Auto) 8.86 1.4-6.5 K/uL Lymphocytes # (Auto) 1.62 1.2-3.4 K/uL Monocytes # (Auto) 0.92 0.11-0.59 K/uL Eosinophils # (Auto) 0.05 0-0.5 K/uL Basophils # (Auto) 0.03 0-0.2 K/uL RDW Standard Deviation 53.2 36.4-46.3 fL RDW Coefficient of Variation 16.5 11.5-14.5 % Immature Granulocyte % (Auto) 0.3 % Immature Granulocyte # (Auto) 0.04 0.00-0.02 K/uL Sodium Level 141 136-145 mmol/L Potassium Level 3.6 3.5-5.1 mmol/L Chloride Level 106 98-107 mmol/L Carbon Dioxide Level 28 21-32 mmol/L Anion Gap 7.0 3-11 mmol/L Blood Urea Nitrogen 13 7-18 mg/dl Creatinine 0.93 0.60-1.40 mg/dl Est Creatinine Clear Calc Drug Dose 92.3 ml/min Estimated GFR () 105.2 Estimated GFR (Non- 90.8 BUN/Creatinine Ratio 13.5 10-20 Random Glucose 92 70-99 mg/dl Calcium Level 8.5 8.5-10.1 mg/dl Total Bilirubin 0.5 0.2-1 mg/dl Direct Bilirubin 0.1 0-0.2 mg/dl Aspartate Amino Transf (AST/SGOT) 12 15-37 U/L Alanine Aminotransferase (ALT/SGPT) 25 12-78 U/L Alkaline Phosphatase 90 45-117 U/L Troponin I < 0.015 0-0.045 ng/ml Total Protein 6.7 6.4-8.2 gm/dl Albumin 3.5 3.4-5.0 gm/dl Lipase 156 73-393 U/L Diagnostic Radiology Patient Name: NATY PERRY Unit Number: [id number] Dictated: 10/04/172108 Transcribed: 10/04/172108 MS Printed Date/Time: [~ rep prt dt]/[~ rep prt tm] [~ rep ct labl] - [~ rep ct ivnm] [facility] [place] [address] Dictated: 10/04/172108 Transcribed: 10/04/172108 MS Printed Date/Time: [~ rep prt dt]/[~ rep prt tm] [~ rep ct labl] - [~ rep ct ivnm] [~ rep ct add3]] CHEST ONE VIEW PORTABLE CLINICAL HISTORY: CHEST PAIN dyspnea COMPARISON STUDY: 2016 FINDINGS: Central catheter in superior vena cava. Mild emphysematous change. Mild chronic basilar interstitial change. No focal infiltrate. Diaphragms smooth. IMPRESSION: Chronic and emphysematous change. No acute process. The above report was generated using voice recognition software. It may contain grammatical, syntax or spelling errors. Electronically signed by: Balaji Barton M.D. 10/04/2017 9:10 PM Dictated Date/Time: 10/04/2017 9:09 PM The status of this report is Signed. Draft = Not yet reviewed or approved by Radiologist. Signed = Reviewed and approved by Radiologist. <AttendingPhy></AttendingPhy> <FamilyPhy>Naty Zuniga M.D.</FamilyPhy> < PrimaryPhy>Naty Zuniga M.D.</PrimaryPhy> <UnitNumber>[id number]</UnitNumber > <VisitNumber>[id number]</VisitNumber> <PatientName>NATY PERRY</ PatientName> <DateOfBirth>1960</DateOfBirth> <Location>C.EDB</Location> < ServiceDate>10/04/17</ServiceDate> <MNE>ESINDI</MNE> <OrderingPhy>Ricardo Nash M.D.</OrderingPhy> <OrderingPhyMNE>f rep ord dr hart</OrderingPhyMNE> <DictatingPhyMNE>f rep dict dr hart</DictatingPhyMNE> <CCListMNE>f rep ct mne</ CCListMNE> <AdmittingPhyMNE>f pt admit dr hart</AdmittingPhyMNE> <AttendingPhyMNE >f pt attend dr hart</AttendingPhyMNE> <ConsultingPhyMNE>f pt consult dr hart</ConsultingPhyMNE> <FamilyPhyMNE>f pt fam dr hart</FamilyPhyMNE> <OtherPhyMNE>f pt other dr hart</OtherPhyMNE> < PrimaryPhyMNE>f pt prim care dr hart</PrimaryPhyMNE> <ReferringPhyMNE>f pt referring dr hart</ReferringPhyMNE> EKG EKG shows sinus tachycardia at 107 bpm, there are no acute ST-T changes, and no change compared to previous EKGs Impression Assessment and Plan COPD exacerbation/non-small cell lung cancer in remission-- CT chest negative for acute findings He's received Solu-Medrol 125 mg IV in the ED. Placed on Solu-Medrol 40 mg IV every 12 hours Continue Combivent Respimat and Advair Diskus as outpatient Hold prednisone 10 mg by mouth daily and Incruse Ellipta Duonebs every 4 hours when necessary. Guaifenesin extended release 600 mg by mouth twice a day GERD-- Continue pantoprazole 40 mg every morning Depression--continue citalopram 20 mg every morning Chronic abdominal pain-- History of fatty liver Order ultrasound right upper quadrant of abdomen Acetaminophen 650 mg by mouth every 6 hours when necessary mild pain Toradol 30 mg IV every 6 hours when necessary moderate pain We will not use narcotics for this chronic abdominal pain Level of Care Med/Surg Advanced Directives Existing Advance Directive: No Existing Living Will: No Existing Power of Financial Compliance Manager: No Resuscitation Status FULL RESUSCITATION VTE Prophylaxis VTE Risk Assessment Done? Y/N: Yes Risk Level: Moderate Given or contraindicated: SCD's Social Service Consult None Apply
[2017-10-05 03:37] VITALS: BP 103/68; PULSE 121; TEMP 36.7; O2SAT 94; Ht 185.4 cm; Wt 74.5 kg
[2017-10-05] MEDS ORDERED: IV FLUIDS COMPLETED PRN (04:00)
[2017-10-05 07:26] VITALS: BP 103/62; PULSE 106; TEMP 36.8; O2SAT 93
--- NOTE | 2017-10-05 08:05 | DIAGNOSTIC IMAGING REPORT ---
CT ANGIOGRAM OF THE CHEST CLINICAL HISTORY: Dyspnea. Lung cancer. COMPARISON STUDY: Chest CT scans dated 04/13/2017, 12/01/2016, and 08/07/2014. TECHNIQUE: Following the IV administration of 69 cc of Optiray 320, CT angiogram of the thorax was performed from the upper abdomen to the thoracic inlet utilizing the pulmonary embolus protocol. 3-D MIPS images are created and assessed. Images are reviewed in the axial, sagittal, and coronal planes. IV contrast was administered without complication. A dose lowering protocol was utilized according to the principles of ALARA. The examination is modestly degraded by motion artifact. CT DOSE: 333.87 mGy.cm FINDINGS: Thyroid: Imaged portions of the thyroid gland are normal in size and attenuation. Thoracic aorta: There is mild atherosclerotic calcification of the thoracic aorta, which is normal in caliber and demonstrates standard 3-vessel arch anatomy. No dissection is seen. A left subclavian central venous infusion port is in place. Pulmonary vasculature: The pulmonary trunk is normal in caliber. There are no filling defects identified in the main, lobar, or segmental pulmonary vessels to indicate pulmonary embolus. Heart: The heart is normal in size and there is a small pericardial effusion. There are coronary artery calcifications. Lungs and pleural spaces: Evaluation of lung parenchyma is modestly degraded by motion artifact. There is advanced emphysema. No airspace consolidation or pleural effusion is identified. There is a 10 mm spiculated nodule in the left upper lobe seen on image #189 and a 10 mm spiculated nodule in the left upper lobe seen on image #231. There is a 1.1 cm spiculated nodule in the right upper lobe as seen on image #190 and a 1.5 cm spiculated nodule in the right upper lobe as seen on image #164. These are located within regions of scarring. Numerous additional 4 to 5 mm nodules are scattered throughout the right upper lobe. These findings are overall similar to the 04/13/2017 examination. The trachea and central airways appear clear. Mediastinum: There is no mediastinal lymphadenopathy. A calcification containing precarinal node is similar to previous. Elisa: Clear. Axillae: There is no axillary lymphadenopathy. Upper abdomen: Partially visualized upper abdominal viscera is within normal limits. Skeletal structures: No lytic or blastic bony lesions are seen. There are healed right-sided rib fractures. IMPRESSION: 1. There is no evidence of pulmonary embolus in the main, lobar, or segmental pulmonary arteries. 2. Advanced emphysema. 3. There are numerous irregular/spiculated appearing pulmonary nodules identified in both lungs. These are pathologically indeterminant and similar in both size and distribution to the 04/13/2017 examination. 4. No airspace consolidation or pleural effusion is identified. 5. Additional findings as above. Electronically signed by: Jorge Alberto Webber M.D. 10/05/2017 8:04 AM Dictated Date/Time: 10/05/2017 7:56 AM
[2017-10-05] MEDS: FLUTICASONE/SALMETEROL (ADVAIR) 500/50 INH 14 PUFF INH SCH ×2 (09:51→21:39)
[2017-10-05] MEDS: IPRATROPIUM BROMIDE/ALBUTEROL respimat INH INH SCH ×4 (09:53→21:40)
[2017-10-05] MEDS: GUAIFENESIN 600 MG TABCR PO SCH ×2 (09:54→21:41)
[2017-10-05] MEDS: CITALOPRAM 20 MG TAB PO SCH (09:54)
[2017-10-05] MEDS: DOXYCYCLINE HYCLATE 100 MG CAP PO SCH ×2 (09:54→21:41)
[2017-10-05] MEDS: METHYLPREDNISOLONE IV 40 MG in SYRINGE 0 ML IV SCH ×2 (09:54→21:40)
[2017-10-05] MEDS: PANTOprazole SOD 40 MG TAB PO SCH (09:54)
--- NOTE | 2017-10-05 09:56 | DIAGNOSTIC IMAGING REPORT ---
ULTRASOUND RIGHT UPPER QUADRANT ABDOMEN CLINICAL HISTORY: Right upper quadrant abdominal pain. COMPARISON STUDY: Abdominal CT dated 12/10/2016. TECHNIQUE: Real-time, grayscale, and color flow sonography of the right upper quadrant of the abdomen was performed. Images are reviewed in the transverse and longitudinal planes. FINDINGS: Liver: The liver is normal in size and slightly heterogeneous in echotexture. There is no intrahepatic biliary ductal dilatation. The main portal vein is patent. Gallbladder: The gallbladder is surgically absent. The common bile duct measures up to 0.8 cm in diameter. Pancreas: Visualized portions of the pancreatic head and body are normal in appearance. Right kidney: Survey images of the right kidney demonstrate normal size and echotexture. There is no hydronephrosis. An 8 mm cyst is incidentally noted. There is a small nonobstructing right renal calculus. Ascites: None. IMPRESSION: 1. No acute sonographic abnormality is identified in the right upper quadrant noting status post cholecystectomy. 2. A small nonobstructing right renal calculus is identified. Electronically signed by: Jorge Alberto Webber M.D. 10/05/2017 9:55 AM Dictated Date/Time: 10/05/2017 9:53 AM
[2017-10-05] MEDS ORDERED: NURSING VERBAL MED ORDER ONE (10:15)
[2017-10-05] MEDS ORDERED: FEXOFENADINE HCL 60 MG TAB PO ONE (11:45)
--- NOTE | 2017-10-05 13:57 | Progress Note ---
Subjective Date of Service: Oct 05, 2017. Subjective Pt evaluation today including: conversation w/ patient, physical exam, chart review, lab review, review of studies (RUQ u/s, CTA chest), review of inpatient medication list Pain: minimal abdominal discomfort - intermittent PO Intake: fair Voiding: no voiding problems still with cough, yellow sputum production, wheezing, and ALVARADO scantly better than at ER presentation has been sick since 09/29/17 no recent travel c/o chronic sore throat and post-nasal drip Problem List Medical Problems: (1) Abdominal pain Status: Acute (2) Abdominal pain Status: Acute (3) Abdominal pain Status: Acute (4) Acute bronchiolitis Status: Acute (5) Acute pulmonary embolism Status: Acute (6) COPD exacerbation Status: Acute (7) COPD exacerbation Status: Acute (8) COPD exacerbation Status: Acute (9) COPD with exacerbation Status: Acute (10) Intractable vomiting Status: Acute (11) Lower abdominal pain Status: Acute (12) Lung cancer Status: Acute (13) Right sided abdominal pain Status: Acute (14) Vomiting Status: Acute Objective Vital Signs Date Time Temp Pulse Resp B/P (MAP) Pulse Ox O2 Delivery O2 Flow Rate FiO2 10/05/17 08:55 Room Air 10/05/17 07:26 36.8 106 18 103/62 (76) 93 Room Air 10/05/17 03:37 36.7 121 22 103/68 94 Room Air 10/05/17 02:10 118 95 10/05/17 02:05 114 28 94 10/05/17 02:00 110/73 10/05/17 01:50 115 27 95 10/05/17 01:35 116 22 96 10/05/17 01:30 90/67 10/05/17 01:20 115 27 93 10/05/17 01:05 121 25 94 10/05/17 01:00 110/71 10/05/17 00:50 121 17 90 10/05/17 00:35 118 96 10/05/17 00:30 87 Room Air 10/05/17 00:20 121 29 92 10/05/17 00:13 120 10/05/17 00:05 121 24 94 10/05/17 00:00 97/73 10/04/17 23:57 102/63 10/04/17 23:50 120 25 93 10/04/17 23:35 125 29 93 10/04/17 23:20 126 19 98 10/04/17 23:15 120 16 100 10/04/17 23:13 120 20 91/63 100 Nebulizer 10.0 10/04/17 22:45 115 24 99 10/04/17 22:21 108 20 98/69 99 Nebulizer 10/04/17 22:07 107 22 94 Room Air 10/04/17 21:38 105 22 93/63 97 Nebulizer 10/04/17 21:07 98 22 93/73 98 Nebulizer 10/04/17 21:00 103 22 94 Room Air 10/04/17 20:22 106 10/04/17 20:18 98 Room Air 10/04/17 20:18 98 Room Air 10/04/17 20:10 36.3 118 20 104/65 97 Room Air Physical Exam General Appearance: no apparent distress ENT: + pharyngeal erythema Neck: no JVD Respiratory/Chest: no respiratory distress, no accessory muscle use, + decreased breath sounds (mild), + wheezing (mild) Cardiovascular: no gallop, no murmur, + tachycardia Abdomen: normal bowel sounds, non tender, soft, no organomegaly Extremities: no pedal edema Laboratory Results Last 24 Hours Test 10/04/17 20:39 10/05/17 01:34 White Blood Count 11.52 K/uL Red Blood Count 5.84 M/uL Hemoglobin 17.3 g/dL Hematocrit 51.2 % Mean Corpuscular Volume 87.7 fL Mean Corpuscular Hemoglobin 29.6 pg Mean Corpuscular Hemoglobin Concent 33.8 g/dl Platelet Count 249 K/uL Mean Platelet Volume 9.1 fL Neutrophils (%) (Auto) 76.9 % Lymphocytes (%) (Auto) 14.1 % Monocytes (%) (Auto) 8.0 % Eosinophils (%) (Auto) 0.4 % Basophils (%) (Auto) 0.3 % Neutrophils # (Auto) 8.86 K/uL Lymphocytes # (Auto) 1.62 K/uL Monocytes # (Auto) 0.92 K/uL Eosinophils # (Auto) 0.05 K/uL Basophils # (Auto) 0.03 K/uL RDW Standard Deviation 53.2 fL RDW Coefficient of Variation 16.5 % Immature Granulocyte % (Auto) 0.3 % Immature Granulocyte # (Auto) 0.04 K/uL Sodium Level 141 mmol/L Potassium Level 3.6 mmol/L Chloride Level 106 mmol/L Carbon Dioxide Level 28 mmol/L Anion Gap 7.0 mmol/L Blood Urea Nitrogen 13 mg/dl Creatinine 0.93 mg/dl Est Creatinine Clear Calc Drug Dose 92.3 ml/min Estimated GFR () 105.2 Estimated GFR (Non- 90.8 BUN/Creatinine Ratio 13.5 Random Glucose 92 mg/dl Calcium Level 8.5 mg/dl Total Bilirubin 0.5 mg/dl Direct Bilirubin 0.1 mg/dl Aspartate Amino Transf (AST/SGOT) 12 U/L Alanine Aminotransferase (ALT/SGPT) 25 U/L Alkaline Phosphatase 90 U/L Troponin I < 0.015 ng/ml Total Protein 6.7 gm/dl Albumin 3.5 gm/dl Lipase 156 U/L Venous Blood pH 7.35 Venous Blood Partial Pressure CO2 46 mmHg Venous Blood Partial Pressure O2 35 mmHg Venous Blood HCO3 25 mmol/L Venous Blood Oxygen Saturation 65.6 % Venous Blood Base Excess -1.2 mEq/L Assessment and Plan 57yo male - 1. COPD exacerbation - continue IV steroids, narrow-spectrum abx, nebs/inhalers , mucinex, incentive spirometry. Likely needs 1 more day of hospitalization. 2. chronic sore throat/post-nasal drip - add mak 60mg BID and nasal steroid spray. 3. DVT proph - lovenox 40mg daily. 4. h/o PUD - PPI. 5. h/o constipation - continue amitiza. Continued [facility] stay due to: multiple IV medications needed Discharge planning: home
[2017-10-05] MEDS ORDERED: ENOXAPARIN 40 MG/0.4 ML SYR SQ ONE (14:00)
[2017-10-05] MEDS: TRIAMCINOLONE ACET NASAL SPRAY 10.8ML BTL NAE SCH (14:05)
[2017-10-05 14:57] VITALS: BP 101/68; PULSE 103; TEMP 36.4; O2SAT 94
[2017-10-05 16:00] VITALS: O2SAT 93
[2017-10-05] MEDS: FEXOFENADINE HCL 60 MG TAB PO SCH (21:41)
[2017-10-06 00:12] VITALS: BP 106/73; PULSE 88; TEMP 36.9; O2SAT 93
[2017-10-06 07:42] VITALS: BP 109/70; PULSE 95; TEMP 36.4; O2SAT 93
[2017-10-06 07:42] LABS: INR 0.9 (0.9-1.1)
[2017-10-06] MEDS: METHYLPREDNISOLONE IV 40 MG in SYRINGE 0 ML IV SCH (08:56)
[2017-10-06] MEDS: PANTOprazole SOD 40 MG TAB PO SCH (08:56)
[2017-10-06] MEDS: GUAIFENESIN 600 MG TABCR PO SCH (08:56)
[2017-10-06] MEDS: DOXYCYCLINE HYCLATE 100 MG CAP PO SCH (08:56)
[2017-10-06] MEDS: FEXOFENADINE HCL 60 MG TAB PO SCH (08:57)
[2017-10-06] MEDS: CITALOPRAM 20 MG TAB PO SCH (08:57)
[2017-10-06] MEDS: IPRATROPIUM BROMIDE/ALBUTEROL respimat INH INH SCH (08:57)
[2017-10-06] MEDS: FLUTICASONE/SALMETEROL (ADVAIR) 500/50 INH 14 PUFF INH SCH (08:57)
[2017-10-06] MEDS: TRIAMCINOLONE ACET NASAL SPRAY 10.8ML BTL NAE SCH (08:57)
[2017-10-06] MEDS ORDERED: ENOXAPARIN 40 MG/0.4 ML SYR SQ SCH (09:00)
[2017-10-06 09:59] VITALS: O2SAT 97
[2017-10-06 10:26] VITALS: BP 109/70; PULSE 95; TEMP 36.4; O2SAT 97
[2017-10-06] MEDS ORDERED: TRIA1SPR4 NAE (10:32)
[2017-10-06] MEDS ORDERED: PRED10TA PO (10:32)
[2017-10-06] MEDS ORDERED: DXY100 PO (10:32)
[2017-10-06] MEDS ORDERED: FEXO1TAB46 PO (10:33)
--- NOTE | 2017-10-06 10:44 | Discharge Instructions ---
Discharge Instructions Date of Service Oct 06, 2017. Admission Reason for Admission: COPD With Exacerbation Discharge Discharge Diagnosis / Problem: COPD exacerbation - improving Discharge Goals Goal(s): Learn about illness, Diagnostic testing, Therapeutic intervention Activity Recommendations Activity Limitations: resume your previous activity (as tolerated ) . Instructions / Follow-Up Instructions / Follow-Up From Dr. Han - For your COPD flare/exacerbation please do the following - * take a prednisone course starting TOMORROW, 10/07/17 - start with 6 tabs and follow the taper directions * at the conclusion of the prednisone taper please resume 10mg once daily as previous * take doxycycline antibiotic 1 capsule twice a day for 6 more days; start this TONIGHT * doxycycline can cause reflux as well as a rash if you go out in the sun * seeing we haven't had much sun this should not be a problem! * if you happen to be outside on a kerri day, however, please use sunscreen on your face * please use your albuterol nebs every 6 hours scheduled for a few days, then go back to using as needed * may take [id number] mucinex up to 1200mg twice a day as needed for cough For your chronic sore throat / nasal congestion do the following - * take mak (fexofenadine) 180mg once daily; prescription provided, but it can also be purchased [id number] * take nasocort nasal spray, 2 squirts in each nostril once daily; this can be purchased [id number] * if you continue with chronic sore throat please see ENT (ears/nose/throat) specialist Follow-up - please see separate section for date/time, but I would advise a follow-up within 1 week with your family doctor I would also recommend that you see your surveyor rod helper within the next 2-3 weeks due to the lung nodules seen on the CAT scan Return to [facility] if - * you have fever over 100.4 degrees * you have worsening shortness of breath, cough, or wheezing despite your antibiotics/prednisone/nebs/etc * you have chest pain or abdominal pain * any other concern Current Hospital Diet Patient's current hospital diet: Regular Diet Discharge Diet Recommended Diet: Regular Diet Procedures Procedures Performed: CAT scan of the lungs showing no pneumonia but multiple lung nodules. Ultrasound of liver showing normal findings except a tiny right-sided kidney stone. Pending Studies Studies pending at discharge: no Medical Emergencies . Who to Call and When: Medical Emergencies: If at any time you feel your situation is an emergency, please call 911 immediately. . Non-Emergent Contact Non-Emergency issues call your: Primary Care Provider Call Non-Emergent contact if: temperature is above 100.5, you have any medication questions . . "Provider Documentation" section prepared by Nate Han. . VTE Core Measure Inpt VTE Proph given/why not?: SCD's
--- NOTE | 2017-10-06 16:24 | Discharge Summary ---
Discharge Summary Date of Service Oct 06, 2017. Discharge Summary Admission Date: Oct 05, 2017 at 01:22 Discharge Date: Oct 06, 2017 Discharge Disposition: Home Principal Diagnosis: COPD exacerbation Problems/Secondary Diagnoses: h/o lung cancer chronic constipation numerous spiculated lung nodules - see CTA report Immunizations: Have You Had Influenza Vaccine: No History of Tetanus Vaccine?: Unknown History of Pneumococcal: No History of Hepatitis B Vaccine: No Procedures: 1. CTA chest - IMPRESSION: 1. There is no evidence of pulmonary embolus in the main, lobar, or segmental pulmonary arteries. 2. Advanced emphysema. 3. There are numerous irregular/spiculated appearing pulmonary nodules identified in both lungs. These are pathologically indeterminant and similar in both size and distribution to the 04/13/2017 examination. 4. No airspace consolidation or pleural effusion is identified. 2. RUQ u/s - liver wnl. Gall bladder absent. CBD 8mm. Tiny right-sided kidney stone. Medication Reconciliation New Medications: Fexofenadine Hcl (Priya) 180 Mg Tab 180 MG PO DAILY, #30 TAB 5 Refills Doxycycline Hyclate (Doxycycline Hyclate) 100 Mg Cap 100 MG PO BID for 6 Days, #12 CAP 0 Refills Triamcinolone Acetonide (Nasal (Nasacort Allergy 24Hr) 55 Mcg/Act Spr 2 SPRAYS BOYD DAILY, #1 INHALER 2 Refills Changed Medications: Prednisone (Prednisone) 10 Mg Tab 10 MG PO DIRECTED, #40 TABS 0 Refills (Changed from: DAILY; Refills: ) start 10/07/17: 6 tabs PO days 1/2, 5 tabs days 3/4, 4 tabs days 5/6, 3 tabs days 7/8, 2 tabs days 9/. Continued Medications: Albuterol Sulf (Proventil 0.083% 2.5MG/3ML) 2.5 Mg/3 Ml Nebu 3 ML NEB Q4-6HRS PRN for SOB/Wheezing Citalopram (Citalopram Hydrobromide) 20 Mg Tab 20 MG PO QAM Fluticasone Prop/Salmeterol (Advair Diskus 500/50 60 Dose) 1 Ea Aerp 1 PUFF INH BID Ipratropium-Albuterol (Combivent Respimat) 1 Aer Aer 1 PUFF INH QID PRN for Shortness of Breath, INH Lubiprostone (Amitiza) 8 Mcg Cap 8 MCG PO BID, CAP Pantoprazole (Pantoprazole Sodium) 40 Mg Tab 40 MG PO QAM Temazepam (Restoril) 30 Mg Cap 30 MG PO HS PRN for Sleep, CAP Umeclidinium [place] (Incruse Ellipta) 62.5 Mcg/Inh Inh 1 PUFF INH QPM Discharge Exam Physical Exam: General Appearance: no apparent distress ENT: pharynx normal Neck: no JVD Respiratory/Chest: no respiratory distress, no accessory muscle use, + wheezing (mild b/l ) Cardiovascular: regular rate, rhythm, no gallop, no murmur, normal peripheral pulses Abdomen / GI: normal bowel sounds, non tender, soft, no organomegaly Extremities: no pedal edema Neurologic/Psychiatric: alert, oriented x 3 Hospital Course HISTORY OF PRESENT ILLNSS: The patient is a 57-year-old male with a past medical history of COPD and non- small cell lung cancer who presented to the emergency department with 4 days of shortness of breath. He presented to the emergency department because friends told him that he should be assessed because of his previous history. He had been using his nebulizers and inhalers at home without significant improvement in his condition. He reported that his ribs hurt when he coughed. He had occasional whitish sputum, which was not uncommon for him. Denied fevers or chills. He reported no change in his chronic abdominal pain. HOSPITAL COURSE: The patient was placed on observation status for his mild-moderate COPD exacerbation. He was treated with a combination of IV steroids, narrow-spectrum antibiotics, nebs/inhalers, and pulmonary toilet. CTA chest failed to show pneumonia. Imaging did reveal multiple spiculated nodules none of which had changed in size since the prior CT scan. With the above measures his symptoms improved. He never required O2 during his stay, and his O2 sats with walking in room air were within normal limits on day of discharge. He was discharged home with a slow taper of prednisone as well as doxycycline. After his prednisone taper he will resume his normal prednisone dose of 10mg daily. He was asked to follow-up with his primary watch technician for surveillance of the pulmonary nodules. Lastly, due to a complaint of chronic pharyngitis/nasal congestion, he was asked to try a combination of oral antihistamine as well as nasal steroid. Total Time Spent: Less than 30 minutes This includes examination of the patient, discharge planning, medication reconciliation, and communication with other providers. Discharge Instructions Please refer to the electronic Patient Visit Report (Discharge Instructions) for additional information. Follow-Up Lillie Reinoso PA-C on ThursdayOctober 09 at 9:00 am. Additional Copies To Isak Zuniga M.D.
== END 2017-10-06 11:35 | disposition home or self-care (01) ==
LOC: C.EDB 20:08 → C.MS2W 10-05 01:22 → ENRESERV 10-05 01:28
PROVIDERS: ADMIT Hospitalist; ATTEND Internal Medicine
DX: J44.1 Chronic obstructive pulmonary disease with (acute) exacerbation (principal); Z85.118 Personal history of other malignant neoplasm of bronchus and lung; K59.09 Other constipation; R91.8 Other nonspecific abnormal finding of lung field; Z79.899 Other long term (current) drug therapy; Z87.891 Personal history of nicotine dependence; K27.9 Peptic ulcer, site unspecified, unspecified as acute or chronic, without hemorrhage or perforation; Z92.21 Personal history of antineoplastic chemotherapy

== ENCOUNTER 2018-01-21 15:08 | Emergency (ER) | payer OTHER ==
[~2018-01-21] VITALS: Ht 182.9 cm; Wt 79.3 kg
[~2018-01-21 15:08] MED LIST changes: +ADVIN50/60 INH; +DXY100 PO; +FEXO1TAB46 PO; -LPT/20 PO; -MRLP17 PO; +TRIA1SPR4 NAE; +UMEC1INH INH
[2018-01-21 15:09] VITALS: TEMP 36.5
[2018-01-21] MEDS ORDERED: DEXAMETHASONE **PF** INJ 10 MG/ML VIAL IV ONE (15:30)
[2018-01-21] MEDS ORDERED: ALBUT/IPRATROP 3MG/0.5MG NEB 3 ML VIAL INH ONE (15:30)
--- NOTE | 2018-01-21 15:57 | EMERGENCY ROOM VISIT NOTE ---
History Report prepared by Valerie: Ariadne Perez Under the Supervision of: Dr. Theodore Tineo M.D. First contact with patient: 15:24 Chief Complaint: SHORTNESS OF BREATH Stated Complaint: BREATHING ISSUES Nursing Triage Summary: Patient ambulatory to triage, short of breath, states "I am having breathing issues. I have always had them. For the last two weeks, I have been really bad. If I do anything I can't breathe. I get really bad cramps in my abdomen. I am coughing up phlegm." History of Present Illness The patient is a 57 year old male who presents to the Emergency Room with complaints of persistent SOB starting several days ago. The patient has a history of COPD and emphysema. He has been coughing and having difficulty catching his breath. His symptoms worsen with any activity. He called his PCP who recommended he go to the ED. He has been doing 2 breathing treatments a day which do not help. His cough has been productive and his throat has been itchy. He has some RUQ abdominal cramping which he has had with his SOB before. He has been urinating frequently. His feet have felt swollen. He has a history of cancer and PE. He smokes some days. Pt denies LOC, headache, fevers, chills, diaphoresis, visual changes, neck pain, chest pain, nausea, vomiting, abdominal pain, back pain, melena, hematochezia, numbness, weakness, lymphadenopathy, rash , or other complaints. Source of History: patient Onset: several days ago Position: chest Quality: other (SOB) Timing: other (persistent) Modifying Factors (Worsening): other (activity) Associated Symptoms: + sorethroat, + cough, + abdominal pain, + urinary symptoms Review of Systems See HPI for pertinent positives and negatives. A total of ten systems were reviewed and were otherwise negative. Past Medical & Surgical Medical Problems: (1) Constipation (2) GI bleed (3) Hypertension (4) Ileus (5) Lung cancer (6) Mediport (7) Non-small cell lung cancer (8) Peptic Ulcer Disease (9) Pulmonary embolism (10) SOB (shortness of breath) Family History Cancer Diabetes mellitus Gallbladder disease Heart disease Hypertension Kidney stones Social History Smoking Status: Current Some Day Smoker Alcohol Use: none Drug Use: none Marital Status: single Housing Status: lives alone Occupation Status: unemployed Current/Historical Medications Scheduled Citalopram (Citalopram Hydrobromide), 20 MG PO QAM Doxycycline Hyclate (Doxycycline Hyclate), 100 MG PO BID Doxycycline Monohydrate (Monodox), 100 MG PO BID Fexofenadine Hcl (Priya), 180 MG PO DAILY Fluticasone Prop/Salmeterol (Advair Diskus 500/50 60 Dose), 1 PUFF INH BID Lubiprostone (Amitiza), 8 MCG PO BID Pantoprazole (Pantoprazole Sodium), 40 MG PO QAM Prednisone (Prednisone), 10 MG PO DIRECTED Prednisone (Prednisone), 50 MG PO DAILY Triamcinolone Acetonide (Nasal (Nasacort Allergy 24Hr), 2 SPRAYS BOYD DAILY Umeclidinium [place] (Incruse Ellipta), 1 PUFF INH QPM Scheduled PRN Albuterol Sulf (Proventil 0.083% 2.5MG/3ML), 3 ML NEB Q4-6HRS PRN for SOB/ Wheezing Ipratropium-Albuterol (Combivent Respimat), 1 PUFF INH QID PRN for Shortness of Breath Temazepam (Restoril), 30 MG PO HS PRN for Sleep Allergies Coded Allergies: No Known Allergies (Verified , 01/21/18) Physical Exam Vital Signs Date Time Temp Pulse Resp B/P (MAP) Pulse Ox O2 Delivery O2 Flow Rate FiO2 01/21/18 21:05 108 20 98/79 95 Room Air 01/21/18 19:31 119/85 93 Room Air 01/21/18 18:55 115 01/21/18 18:34 102 18 111/78 95 Room Air 01/21/18 17:44 93 Room Air 01/21/18 16:57 102 18 110/84 98 Nebulizer 6.0 01/21/18 16:13 102 18 94 Room Air 01/21/18 15:16 96 Room Air 01/21/18 15:09 36.5 117 22 106/63 97 Room Air Physical Exam GENERAL: Awake, alert, uncomfortable-appearing, in no distress HENT: Normocephalic, atraumatic. Oropharynx unremarkable. EYES: Normal conjunctiva. Sclera non-icteric. NECK: Supple. No nuchal rigidity. FROM. No masses. RESPIRATORY: Mild decreased air movement, diminished breath sounds bilaterally. No wheezes. No rales. Normal respiratory effort. CARDIAC: Tachycardic rate. Normal rhythm. No murmurs. No rubs. Extremities warm and well perfused. Pulses equal. No JVD. GI: Soft, non-distended. No tenderness to palpation. No rebound or guarding. No masses. RECTAL: Deferred. MUSCULOSKELETAL: Atraumatic. Chest examination reveals tenderness in the right costal margin. The back is symmetrical on inspection without obvious abnormality. There is no CVA tenderness to palpation. No joint edema. LOWER EXTREMITIES: Calves are equal size bilaterally and non-tender. No edema. No discoloration. NEURO: Normal sensorium. No sensory or motor deficits noted. SKIN: No rash or jaundice noted. Medical Decision & Procedures ER Provider Diagnostic Interpretation: Radiology results as stated below per my review and radiologist interpretation: CHEST ONE VIEW PORTABLE CLINICAL HISTORY: 57 years-old Male presenting with EVALUATE RESPIRATORY DISTRESS.DYSPNEA. TECHNIQUE: Portable upright AP view of the chest was obtained. COMPARISON: 10/04/2017. FINDINGS: Left subclavian Mediport terminates in the mid SVC. Cardiomediastinal silhouette normal. Heterogeneity of lung parenchyma suggested. No focal opacity. No large effusion or pneumothorax. Osseous structures normal. IMPRESSION: 1. Findings suggest emphysema. No focal infiltrate to suggest pneumonia. Electronically signed by: Angel Haines M.D. 01/21/2018 3:53 PM Dictated Date/Time: 01/21/2018 3:52 PM (CHEST FOR PE) ANGIO WITH CT DOSE: 348.43 mGy.cm HISTORY: 57 years-old Male presents with acute shortness of breath TECHNIQUE: Multiple CTA images of the chest were obtained after the intravenous administration of 93 ml Optiray 320. Coronal and sagittal MIPS were obtained from the axial data set and were submitted for review. A dose lowering technique was utilized adhering to the principles of ALARA. COMPARISON: CTA of the chest 10/04/2017, chest radiograph of same day FINDINGS: CTA: Small pericardial effusion. Heart is normal in size. Coronary arterial disease. Thoracic aorta demonstrates mild to moderate mixed plaquing without aneurysm or dissection. The imaged great vessels appear patent. The pulmonary arterial tree is well-opacified to the level of the subsegmental branches and demonstrates no focal filling defects to suggest pulmonary thromboembolic disease. Scarring about the right hilum is again noted with narrowing of the segmental pulmonary arterial branch on image 219 series [address] CHEST: No dominant thyroid nodule. No pathologic adenopathy identified. Advanced upper lobe predominant centrilobular emphysema redemonstrated without pneumothorax, pleural effusion or focal airspace consolidation. Mild bilateral bronchial wall thickening suggests associated bronchitis. Multiple triangular and irregular pulmonary nodules of the lungs bilaterally are redemonstrated including a spiculated nodule of the right upper lobe on image 214 series 4 measuring 11 mm, unchanged. 1.5 cm linear irregular nodule of the right lower lobe on image 192 series 4 is unchanged. 1.0 cm nodule left upper lobe on image 199 series 4 is unchanged. No new or progressively enlarged nodules identified. 10 mm nodule of the left upper lobe on image 240 of series 4 is stable. Prior cholecystectomy. No acute process of the imaged upper abdomen. Soft tissues are unremarkable. Bones appear intact. Multiple remote right-sided rib fractures. IMPRESSION: 1. No acute intrathoracic abnormality identified, specifically no acute aortic pathology or evidence of pulmonary thromboembolic disease. 2. Severe emphysema with multifocal areas of parenchymal scarring. Multiple irregular, triangular and spiculated pulmonary nodules are again seen bilaterally as above which appear stable in size and appearance from comparison. No new or enlarging pulmonary nodules identified. 3. No lobar airspace consolidation or pathologic adenopathy. The above report was generated using voice recognition software. It may contain grammatical, syntax or spelling errors. Electronically signed by: Nick Biggs M.D. 01/21/2018 7:43 PM Dictated Date/Time: 01/21/2018 7:33 PM Laboratory Results 01/21/18 15:45 Red Blood Count 5.45, Mean Corpuscular Volume 89.4, Mean Corpuscular Hemoglobin 29.9, Mean Corpuscular Hemoglobin Concent 33.5, Mean Platelet Volume 9.2, Neutrophils (%) (Auto) 84.9, Lymphocytes (%) (Auto) 8.6, Monocytes (%) (Auto) 5.6, Eosinophils (%) (Auto) 0.1, Basophils (%) (Auto) 0.2, Neutrophils # (Auto) 10.62, Lymphocytes # (Auto) 1.08, Monocytes # (Auto) 0.70, Eosinophils # (Auto) 0.01, Basophils # (Auto) 0.03 01/21/18 15:45 Test 01/21/18 15:45 01/21/18 18:39 White Blood Count 12.51 K/uL (4.8-10.8) Red Blood Count 5.45 M/uL (4.7-6.1) Hemoglobin 16.3 g/dL (14.0-18.0) Hematocrit 48.7 % (42-52) Mean Corpuscular Volume 89.4 fL (80-100) Mean Corpuscular Hemoglobin 29.9 pg (25-34) Mean Corpuscular Hemoglobin Concent 33.5 g/dl (32-36) Platelet Count 252 K/uL (130-400) Mean Platelet Volume 9.2 fL (7.4-10.4) Neutrophils (%) (Auto) 84.9 % Lymphocytes (%) (Auto) 8.6 % Monocytes (%) (Auto) 5.6 % Eosinophils (%) (Auto) 0.1 % Basophils (%) (Auto) 0.2 % Neutrophils # (Auto) 10.62 K/uL (1.4-6.5) Lymphocytes # (Auto) 1.08 K/uL (1.2-3.4) Monocytes # (Auto) 0.70 K/uL (0.11-0.59) Eosinophils # (Auto) 0.01 K/uL (0-0.5) Basophils # (Auto) 0.03 K/uL (0-0.2) RDW Standard Deviation 55.8 fL (36.4-46.3) RDW Coefficient of Variation 17.1 % (11.5-14.5) Immature Granulocyte % (Auto) 0.6 % Immature Granulocyte # (Auto) 0.07 K/uL (0.00-0.02) Prothrombin Time 9.8 SECONDS (9.0-12.0) Prothromb Time International Ratio 0.9 (0.9-1.1) Activated Partial Thromboplast Time 28.9 SECONDS (21.0-31.0) Partial Thromboplastin Ratio 1.1 Anion Gap 3.0 mmol/L (3-11) Est Creatinine Clear Calc Drug Dose 84.4 ml/min Estimated GFR () 89.9 Estimated GFR (Non- 77.5 BUN/Creatinine Ratio 6.0 (10-20) Calcium Level 8.9 mg/dl (8.5-10.1) Total Bilirubin 0.9 mg/dl (0.2-1) Aspartate Amino Transf (AST/SGOT) 10 U/L (15-37) Alanine Aminotransferase (ALT/SGPT) 33 U/L (12-78) Alkaline Phosphatase 84 U/L (45-117) Troponin I < 0.015 ng/ml (0-0.045) Pro-B-Type Natriuretic Peptide 88 pg/ml (0-900) Total Protein 6.7 gm/dl (6.4-8.2) Albumin 3.5 gm/dl (3.4-5.0) Globulin 3.2 gm/dl (2.5-4.0) Albumin/Globulin Ratio 1.1 (0.9-2) Urine Color YELLOW Urine Appearance CLEAR (CLEAR) Urine pH 7.5 (4.5-7.5) Urine Specific [place] 1.011 (1.000-1.030) Urine Protein NEG (NEG) Urine Glucose (UA) NEG (NEG) Urine Ketones TRACE (NEG) Urine Occult Blood TRACE (NEG) Urine Nitrite NEG (NEG) Urine Bilirubin NEG (NEG) Urine Urobilinogen NEG (NEG) Urine Leukocyte Esterase NEG (NEG) Urine WBC (Auto) 1-5 /hpf (0-5) Urine RBC (Auto) 0-4 /hpf (0-4) Urine Hyaline Casts (Auto) 0 /lpf (0-5) Urine Epithelial Cells (Auto) 0-5 /lpf (0-5) Urine Bacteria (Auto) NEG (NEG) Laboratory results reviewed by me Medications Administered Medications (Trade) Dose Ordered Sig/Dae Route Start Time Stop Time Status Last Admin Dose Admin Albuterol/ Ipratropium (Duoneb) 12 ml ONE ONCE INH 01/21/18 15:30 01/21/18 15:31 DC 01/21/18 16:13 12 ML Dexamethasone Sodium Phosphate (Dexamethasone Inj Pf) 10 mg NOW ONCE IV 01/21/18 15:30 18 15:31 DC 01/21/18 16:02 10 MG Albuterol/ Ipratropium (Duoneb) 3 ml NOW STAT INH 01/21/18 18:50 01/21/18 18:51 DC 01/21/18 19:00 3 ML Doxycycline Hyclate (Vibramycin Cap) 200 mg ONE ONCE PO 01/21/18 21:15 01/21/18 21:16 DC 01/21/18 21:15 200 MG Heparin Sodium (Porcine) (Heparin 100 Unit/ml 5ml Flush) 5 ml STK-MED ONCE .ROUTE 01/21/18 21:39 01/21/18 21:40 DC 01/21/18 21:39 5 ML ECG Per My Interpretation Indication: SOB/dyspnea Rate (beats per minute): 104 Rhythm: sinus tachycardia Findings: no acute ischemic change, no ectopy, other (normal intervals) ED Course 1524: Prior records reviewed. The patient was discharged in the beginning of October after COPD exacerbation. He has a history of advanced emphysema. 1527: The patient was evaluated in room A2. A complete history and physical exam was performed. 1530: Dexamethasone Sodium Phosphate 10 mg IV, Duoneb 12 ml INH. 1641: I reevaluated the patient. He is doing better. 1750: The patient's ambulatory pulse ox was in the 90s. He had some increased work of breathing, but was not hypoxic. 1830: I reevaluated the patient. He is requesting additional neb treatment. 1850: Duoneb 3 ml INH. 2108: I reevaluated the patient. He is comfortable with discharge home. Discussed results and discharge instructions: He verbalized understanding and agreement. The patient is ready for discharge. 2114: Doxycycline Hyclate 200 mg PO. Medical Decision Prior records/ancillary studies reviewed. Triage Nursing notes reviewed and agree them. Delete The patient's history was concerning for shortness of breath. Differential diagnosis: Etiologies such as COPD, pneumonia,reactive airway disease, CHF, cardiac ischemia, pulmonary embolism, pneumothorax, musculoskeletal, infections, gastrointestinal, as well as others were entertained. Physical examination: As above ER treatment provided: Hour-long DuoNeb Decadron On reassessment the patient felt better. Diagnostic interpretation by me: The electrocardiogram was negative for pathologic change. Sinus tach. The labs revealed a slight leukocytosis on CBC. Chemistry panel unremarkable. BNP negative. Troponin negative. Urinalysis negative. Imaging studies: Chest x-ray as above. The patient had a CT scan performed. No PE. Chronic changes noted. Significant COPD noted. The patient is doing very well at this point in time. He was ambulated. He never had any hypoxia. He was monitored for an extended period, almost 6 hours. He was given a second nebulizer treatment because he requested it. His respiratory rate was doing well. He had no significant work of breathing. I discussed conservative management with him. He felt comfortable. The patient was treated with doxycycline. He will have his prednisone increased. He will use his nebulizers and then taper back to his regular medications. The patient will follow up with his primary physician tomorrow as he was unable to see him today. If he worsens in any way he will be back. He had complaints of some right upper quadrant abdominal discomfort. He had a tender costal margin. He notes he has had this many times in the past with his breathing flareups. He did have a workup for during his last hospitalization and was unremarkable. CT imaging did not reveal any any abnormalities in this location. I gave my usual and customary discussion regarding this issue. By the evaluation outlined above other emergent etiologies such as those listed in the differential, as well as others, were deemed relatively unlikely. The patient was educated about the findings as listed above. All questions were answered and the patient was pleased with the treatment. Return instructions were outlined and the patient was discharged in stable condition. The patient was referred to his PCP for follow-up for a recheck of the current condition. Medication Reconcilliation Current Medication List: was personally reviewed by me Blood Pressure Screening Patient's blood pressure: Normal blood pressure Blood pressure disposition: Did not require urgent referral Impression Primary Impression: COPD exacerbation Scribe Attestation The scribe's documentation has been prepared under my direction and personally reviewed by me in its entirety. I confirm that the note above accurately reflects all work, treatment, procedures, and medical decision making performed by me. Departure Information Dispostion Home / Self-Care Prescriptions Doxycycline Monohydrate (Monodox) 100 Mg Cap 100 MG PO BID for 7 Days, #14 CAP Prov: Theodore Tineo MD 01/21/18 Prednisone (Prednisone) 50 Mg Tab 50 MG PO DAILY for 4 Days, #4 TAB Prov: Theodore Tineo MD 01/21/18 Referrals Isak Zuniga M.D. (PCP) Forms HOME CARE DOCUMENTATION FORM, IMPORTANT VISIT INFORMATION Patient Instructions My [facility] Additional Instructions Doxycycline 100mg: Take one pill twice daily for 7 days for your lung. Take with food, but avoid dairy. Avoid prolonged sun exposure since this medication makes you temporarily more susceptible to sunburns. All antibiotics can cause diarrhea. If this occurs and you feel worse or it does not resolve in 1-2 days follow up with your doctor or return to the Emergency Department as this could be signs of serious underlying problems. Any medication can cause an allergic reaction, stop the pills immediately and return to the ER for rash, hives, breathing difficulties, or swelling. Use your nebulizers four times daily for 2-3 days, then as needed. Once you cut back on your nebulizer treatments then resume your Combivent. Prednisone 50 mg: Once daily until the prescription is finished then resume your baseline dose. Acetaminophen(Tylenol) may be used for fever or pain. Use 1000mg every six hours as needed. Avoid using more than 4000mg in a 24 hour period. Controlling your fever with Tylenol and Ibuprofen as above will make you feel better. Rest and drink plenty of fluids. Avoid strenuous activity until your symptoms resolve and your breathing returns to normal. Return to the ER for chest pain, difficulty breathing, persistent fevers, vomiting, worsening of your condition, or as needed. Follow up with your primary physician tomorrow for a recheck of the current condition.
[2018-01-21 16:06] LABS: BASO % 0.2 %; BASO ABS # 0.03 K/uL (0-0.2); EOS % 0.1 %; EOS ABS # 0.01 K/uL (0-0.5); HEMATOCRIT 48.7 % (42-52); HEMOGLOBIN 16.3 g/dL (14.0-18.0); IG# 0.07 K/uL (0.00-0.02); LYMPH % 8.6 %; LYMPH ABS # 1.08 K/uL (1.2-3.4); MEAN CELL VOLUME 89.4 fL (80-100); MEAN CORPUSCULAR HEMOGLOBIN 29.9 pg (25-34); MEAN CORPUSCULAR HGB CONC 33.5 g/dl (32-36); MEAN PLATELET VOLUME 9.2 fL (7.4-10.4); MONO % 5.6 %; NEUT % 84.9 %; NEUT ABS # 10.62 K/uL (1.4-6.5); PLATELET COUNT 252 K/uL (130-400); RED CELL DISTRIBUTION WIDTH CV 17.1 % (11.5-14.5); RED CELL DISTRIBUTION WIDTH SD 55.8 fL (36.4-46.3); WHITE BLOOD COUNT 12.51 K/uL (4.8-10.8)
[2018-01-21 16:08] VITALS: Ht 182.9 cm; Wt 79.3 kg
[2018-01-21 16:13] VITALS: PULSE 102; O2SAT 94
[2018-01-21 16:16] LABS: INR 0.9 (0.9-1.1); PTT PATIENT 28.9 SECONDS (21.0-31.0)
[2018-01-21 16:24] LABS: ALBUMIN 3.5 gm/dl (3.4-5.0); ALT/SGPT 33 U/L (12-78); AST/SGOT 10 U/L (15-37); BLOOD UREA NITROGEN 6 mg/dl (7-18); CALCIUM 8.9 mg/dl (8.5-10.1); CARBON DIOXIDE 27 mmol/L (21-32); CREATININE 1.06 mg/dl (0.60-1.40); GLUCOSE 122 mg/dl (70-99); POTASSIUM 3.6 mmol/L (3.5-5.1); SODIUM 139 mmol/L (136-145)
[2018-01-21 16:29] LABS: ALKALINE PHOSPHATASE 84 U/L (45-117); TOTAL PROTEIN 6.7 gm/dl (6.4-8.2)
[2018-01-21] MEDS ORDERED: ALBUT/IPRATROP 3MG/0.5MG NEB 3 ML VIAL INH STA (18:50)
[2018-01-21] MEDS ORDERED: OPTIRAY 320 IV PRN (19:15)
--- NOTE | 2018-01-21 19:44 | DIAGNOSTIC IMAGING REPORT ---
(CHEST FOR PE) ANGIO WITH CT DOSE: 348.43 mGy.cm HISTORY: 57 years-old Male presents with acute shortness of breath TECHNIQUE: Multiple CTA images of the chest were obtained after the intravenous administration of 93 ml Optiray 320. Coronal and sagittal MIPS were obtained from the axial data set and were submitted for review. A dose lowering technique was utilized adhering to the principles of ALARA. COMPARISON: CTA of the chest 10/04/2017, chest radiograph of same day FINDINGS: CTA: Small pericardial effusion. Heart is normal in size. Coronary arterial disease. Thoracic aorta demonstrates mild to moderate mixed plaquing without aneurysm or dissection. The imaged great vessels appear patent. The pulmonary arterial tree is well-opacified to the level of the subsegmental branches and demonstrates no focal filling defects to suggest pulmonary thromboembolic disease. Scarring about the right hilum is again noted with narrowing of the segmental pulmonary arterial branch on image 219 series [address] CHEST: No dominant thyroid nodule. No pathologic adenopathy identified. Advanced upper lobe predominant centrilobular emphysema redemonstrated without pneumothorax, pleural effusion or focal airspace consolidation. Mild bilateral bronchial wall thickening suggests associated bronchitis. Multiple triangular and irregular pulmonary nodules of the lungs bilaterally are redemonstrated including a spiculated nodule of the right upper lobe on image 214 series 4 measuring 11 mm, unchanged. 1.5 cm linear irregular nodule of the right lower lobe on image 192 series 4 is unchanged. 1.0 cm nodule left upper lobe on image 199 series 4 is unchanged. No new or progressively enlarged nodules identified. 10 mm nodule of the left upper lobe on image 240 of series 4 is stable. Prior cholecystectomy. No acute process of the imaged upper abdomen. Soft tissues are unremarkable. Bones appear intact. Multiple remote right-sided rib fractures. IMPRESSION: 1. No acute intrathoracic abnormality identified, specifically no acute aortic pathology or evidence of pulmonary thromboembolic disease. 2. Severe emphysema with multifocal areas of parenchymal scarring. Multiple irregular, triangular and spiculated pulmonary nodules are again seen bilaterally as above which appear stable in size and appearance from comparison. No new or enlarging pulmonary nodules identified. 3. No lobar airspace consolidation or pathologic adenopathy. The above report was generated using voice recognition software. It may contain grammatical, syntax or spelling errors. Electronically signed by: Nick Biggs M.D. 01/21/2018 7:43 PM Dictated Date/Time: 01/21/2018 7:33 PM
[2018-01-21 21:05] VITALS: BP 98/79; PULSE 108; O2SAT 95
[2018-01-21] MEDS ORDERED: DOXYCYCLINE HYCLATE 100 MG CAP PO ONE (21:15)
[2018-01-21] MEDS ORDERED: PRED50TA PO (21:19)
[2018-01-21] MEDS ORDERED: DOXY100C76 PO (21:19)
== END 2018-01-21 21:50 | disposition home or self-care (01) ==
LOC: C.EDB 15:09 → C.EDA 21:50
DX: J44.1 Chronic obstructive pulmonary disease with (acute) exacerbation (principal); R00.0 Tachycardia, unspecified; J39.2 Other diseases of pharynx; R10.11 Right upper quadrant pain; R35.0 Frequency of micturition; R60.0 Localized edema; I10 Essential (primary) hypertension; K59.00 Constipation, unspecified; F17.200 Nicotine dependence, unspecified, uncomplicated; Z87.09 Personal history of other diseases of the respiratory system; Z86.711 Personal history of pulmonary embolism; Z85.110 Personal history of malignant carcinoid tumor of bronchus and lung; Z79.899 Other long term (current) drug therapy; Z83.3 Family history of diabetes mellitus; Z83.79 Family history of other diseases of the digestive system; Z82.49 Family history of ischemic heart disease and other diseases of the circulatory system; Z84.1 Family history of disorders of kidney and ureter

== ENCOUNTER 2018-02-08 10:17 | Inpatient (IN) | payer OTHER ==
[~2018-02-08] VITALS: Ht 185.4 cm; Wt 76.5 kg
[2018-02-08] MEDS ORDERED: DEXAMETHASONE INJ 10 MG in SYRINGE 0 ML IV STA (10:45)
[2018-02-08] MEDS ORDERED: MAGNESIUM SULFATE 1GM / D5W 1 GM BAG IV STA (10:45)
[2018-02-08] MEDS ORDERED: ALBUT/IPRATROP 3MG/0.5MG NEB 3 ML VIAL INH ONE (10:45)
[2018-02-08 11:07] LABS: BASO % 0.2 %; BASO ABS # 0.02 K/uL (0-0.2); EOS % 0.4 %; EOS ABS # 0.05 K/uL (0-0.5); HEMATOCRIT 47.9 % (42-52); HEMOGLOBIN 16.6 g/dL (14.0-18.0); IG# 0.09 K/uL (0.00-0.02); LYMPH % 5.3 %; MEAN CELL VOLUME 89.9 fL (80-100); MEAN CORPUSCULAR HEMOGLOBIN 31.1 pg (25-34); MEAN CORPUSCULAR HGB CONC 34.7 g/dl (32-36); MEAN PLATELET VOLUME 9.2 fL (7.4-10.4); MONO % 5.2 %; MONO ABS # 0.59 K/uL (0.11-0.59); NEUT % 88.1 %; PLATELET COUNT 227 K/uL (130-400); RED CELL DISTRIBUTION WIDTH CV 16.5 % (11.5-14.5); RED CELL DISTRIBUTION WIDTH SD 54.6 fL (36.4-46.3); WHITE BLOOD COUNT 11.25 K/uL (4.8-10.8)
[2018-02-08 11:12] VITALS: PULSE 105; O2SAT 98
[2018-02-08 11:23] LABS: ALBUMIN 3.1 gm/dl (3.4-5.0); ALT/SGPT 28 U/L (12-78); AST/SGOT 9 U/L (15-37); BLOOD UREA NITROGEN 13 mg/dl (7-18); CALCIUM 8.4 mg/dl (8.5-10.1); CARBON DIOXIDE 25 mmol/L (21-32); CREATININE 1.32 mg/dl (0.60-1.40); GLUCOSE 193 mg/dl (70-99); POTASSIUM 3.3 mmol/L (3.5-5.1); SODIUM 139 mmol/L (136-145)
--- NOTE | 2018-02-08 11:23 | DIAGNOSTIC IMAGING REPORT ---
CHEST ONE VIEW PORTABLE CLINICAL HISTORY: 57 years-old Male presenting with Pt c/o SOB. TECHNIQUE: Portable upright AP view of the chest was obtained. COMPARISON: 01/21/2018. FINDINGS: Left subclavian Mediport terminates in the mid SVC. Cardiomediastinal silhouette normal. Heterogeneity of lung parenchyma with radiolucency of the upper lobes, left greater than right. Minimal irregular opacities at the lung bases, left greater than right. No new focal opacity. No large pleural effusion or pneumothorax. Degenerative changes of the thoracic spine. Cholecystectomy clips noted. IMPRESSION: 1. Findings suggest emphysema. No focal infiltrate to suggest pneumonia. The presence of spiculated nodules in the upper lobes are better appreciated on prior CT. Electronically signed by: Angel Haines M.D. 02/08/2018 11:22 AM Dictated Date/Time: 02/08/2018 11:20 AM
[2018-02-08] MEDS ORDERED: POTASSIUM CHLORIDE 20 MEQ/15 ML UDC PO STA (11:26)
[2018-02-08 11:28] LABS: ALKALINE PHOSPHATASE 80 U/L (45-117); TOTAL PROTEIN 6.6 gm/dl (6.4-8.2)
[2018-02-08 11:51] LABS: INFLUENZA B ANTIGEN Neg for Influ B (NEG)
[2018-02-08 13:00] VITALS: O2SAT 92; Ht 185.4 cm; Wt 76.5 kg
--- NOTE | 2018-02-08 13:19 | EMERGENCY ROOM VISIT NOTE ---
History Report prepared by Valerie: Selvin Magallanes Under the Supervision of: Dr. Cam Gonzalez M.D. First contact with patient: 10:35 Chief Complaint: SHORTNESS OF BREATH Stated Complaint: BREATHING Nursing Triage Summary: patient states he has breathing issues. and muscles have been camping History of Present Illness The patient is a 57 year old male who presents to the Emergency Room with complaints of constant shortness of breath beginning this week. The patient has a history of lung cancer. He was seen in the ED three weeks ago for similar symptoms and was started on a Prednisone taper. He was seen by his PCP in follow -up and was started on Prednisone again as well as an antibiotic. The patient called his PCP today for continued difficulty breathing and was referred to the ED. He also complains of muscle cramping. He received a Decadron injection a week ago which improved his symptoms. Source of History: patient Onset: This week Quality: other (shortness of breath) Timing: constant Modifying Factors (Relieving): other (Decadron) Note: The patient also complains of muscle cramping. Review of Systems See HPI for pertinent positives & negatives. A total of 10 systems reviewed and were otherwise negative. Past Medical & Surgical Medical Problems: (1) Constipation (2) GI bleed (3) Hypertension (4) Ileus (5) Lung cancer (6) Mediport (7) Non-small cell lung cancer (8) Peptic Ulcer Disease (9) Pulmonary embolism (10) SOB (shortness of breath) Family History Cancer Diabetes mellitus Gallbladder disease Heart disease Hypertension Kidney stones Social History Smoking Status: Current Some Day Smoker Alcohol Use: none Drug Use: none Marital Status: single Housing Status: lives alone Occupation Status: unemployed Current/Historical Medications Scheduled Citalopram (Citalopram Hydrobromide), 20 MG PO QAM Fexofenadine Hcl (Priya), 180 MG PO DAILY Fluticasone Prop/Salmeterol (Advair Diskus 500/50 60 Dose), 1 PUFF INH BID Lubiprostone (Amitiza), 8 MCG PO BID Pantoprazole (Pantoprazole Sodium), 40 MG PO QAM Prednisone (Prednisone), 10 MG PO DIRECTED Triamcinolone Acetonide (Nasal (Nasacort Allergy 24Hr), 2 SPRAYS BOYD DAILY Umeclidinium Vance (Incruse Ellipta), 1 PUFF INH QPM Scheduled PRN Albuterol Sulf (Proventil 0.083% 2.5MG/3ML), 3 ML NEB Q4-6HRS PRN for SOB/ Wheezing Ipratropium-Albuterol (Combivent Respimat), 1 PUFF INH QID PRN for Shortness of Breath Temazepam (Restoril), 30 MG PO HS PRN for Sleep Allergies Coded Allergies: No Known Allergies (Verified , 02/08/18) Physical Exam Vital Signs Date Time Temp Pulse Resp B/P (MAP) Pulse Ox O2 Delivery O2 Flow Rate FiO2 02/08/18 13:12 107 02/08/18 13:00 92 Room Air 02/08/18 13:00 107 20 94/67 92 Room Air 02/08/18 12:03 105 22 113/80 99 Nebulizer 02/08/18 11:12 105 20 98 Room Air 02/08/18 10:44 112 02/08/18 10:28 96 Room Air 02/08/18 10:24 36.6 121 18 102/67 95 Room Air 02/08/18 10:24 95 Room Air Physical Exam GENERAL: Awake, alert, well-appearing, in no acute distress HENT: Normocephalic, atraumatic. Oropharynx unremarkable. EYES: Normal conjunctiva. Sclera non-icteric. NECK: Supple. No nuchal rigidity. FROM. No JVD. RESPIRATORY: Distant lung sounds bilaterally. CARDIAC: Regular rate, normal rhythm. Extremities warm and well perfused. Pulses equal. ABDOMEN: Soft, non-distended. No tenderness to palpation. No rebound or guarding. No masses. RECTAL: Deferred. MUSCULOSKELETAL: Chest examination reveals no tenderness. Port in place to the left chest wall. The back is symmetrical on inspection without obvious abnormality. There is no CVA tenderness to palpation. No joint edema. LOWER EXTREMITIES: Calves are equal size bilaterally and non-tender. No edema. No discoloration. NEURO: Normal sensorium. No sensory or motor deficits noted. SKIN: No rash or jaundice noted. Medical Decision & Procedures ER Provider Diagnostic Interpretation: Radiology results as stated below per my review and radiologist interpretation: CHEST ONE VIEW PORTABLE FINDINGS: Left subclavian Mediport terminates in the mid SVC. Cardiomediastinal silhouette normal. Heterogeneity of lung parenchyma with radiolucency of the upper lobes, left greater than right. Minimal irregular opacities at the lung bases, left greater than right. No new focal opacity. No large pleural effusion or pneumothorax. Degenerative changes of the thoracic spine. Cholecystectomy clips noted. IMPRESSION: 1. Findings suggest emphysema. No focal infiltrate to suggest pneumonia. The presence of spiculated nodules in the upper lobes are better appreciated on prior CT. Electronically signed by: Angel Haines M.D. 02/08/2018 11:22 AM Laboratory Results 02/08/18 10:48 Red Blood Count 5.33, Mean Corpuscular Volume 89.9, Mean Corpuscular Hemoglobin 31.1, Mean Corpuscular Hemoglobin Concent 34.7, Mean Platelet Volume 9.2, Neutrophils (%) (Auto) 88.1, Lymphocytes (%) (Auto) 5.3, Monocytes (%) (Auto) 5.2, Eosinophils (%) (Auto) 0.4, Basophils (%) (Auto) 0.2, Neutrophils # (Auto) 9.90, Lymphocytes # (Auto) 0.60, Monocytes # (Auto) 0.59, Eosinophils # (Auto) 0.05, Basophils # (Auto) 0.02 02/08/18 10:48 Test 02/08/18 10:48 02/08/18 11:04 02/08/18 12:20 White Blood Count 11.25 K/uL (4.8-10.8) Red Blood Count 5.33 M/uL (4.7-6.1) Hemoglobin 16.6 g/dL (14.0-18.0) Hematocrit 47.9 % (42-52) Mean Corpuscular Volume 89.9 fL (80-100) Mean Corpuscular Hemoglobin 31.1 pg (25-34) Mean Corpuscular Hemoglobin Concent 34.7 g/dl (32-36) Platelet Count 227 K/uL (130-400) Mean Platelet Volume 9.2 fL (7.4-10.4) Neutrophils (%) (Auto) 88.1 % Lymphocytes (%) (Auto) 5.3 % Monocytes (%) (Auto) 5.2 % Eosinophils (%) (Auto) 0.4 % Basophils (%) (Auto) 0.2 % Neutrophils # (Auto) 9.90 K/uL (1.4-6.5) Lymphocytes # (Auto) 0.60 K/uL (1.2-3.4) Monocytes # (Auto) 0.59 K/uL (0.11-0.59) Eosinophils # (Auto) 0.05 K/uL (0-0.5) Basophils # (Auto) 0.02 K/uL (0-0.2) RDW Standard Deviation 54.6 fL (36.4-46.3) RDW Coefficient of Variation 16.5 % (11.5-14.5) Immature Granulocyte % (Auto) 0.8 % Immature Granulocyte # (Auto) 0.09 K/uL (0.00-0.02) Anion Gap 9.0 mmol/L (3-11) Est Creatinine Clear Calc Drug Dose 66.8 ml/min Estimated GFR () 68.9 Estimated GFR (Non- 59.5 BUN/Creatinine Ratio 9.8 (10-20) Calcium Level 8.4 mg/dl (8.5-10.1) Total Bilirubin 0.8 mg/dl (0.2-1) Aspartate Amino Transf (AST/SGOT) 9 U/L (15-37) Alanine Aminotransferase (ALT/SGPT) 28 U/L (12-78) Alkaline Phosphatase 80 U/L (45-117) Troponin I < 0.015 ng/ml (0-0.045) Total Protein 6.6 gm/dl (6.4-8.2) Albumin 3.1 gm/dl (3.4-5.0) Globulin 3.5 gm/dl (2.5-4.0) Albumin/Globulin Ratio 0.9 (0.9-2) Influenza Type A Antigen Neg for Influ A (NEG) Influenza Type B Antigen Neg for Influ B (NEG) Urine Color YELLOW Urine Appearance CLEAR (CLEAR) Urine pH 6.5 (4.5-7.5) Urine Specific Hercules 1.023 (1.000-1.030) Urine Protein NEG (NEG) Urine Glucose (UA) 2+ (NEG) Urine Ketones NEG (NEG) Urine Occult Blood 2+ (NEG) Urine Nitrite NEG (NEG) Urine Bilirubin NEG (NEG) Urine Urobilinogen NEG (NEG) Urine Leukocyte Esterase NEG (NEG) Urine WBC (Auto) 1-5 /hpf (0-5) Urine RBC (Auto) 5-10 /hpf (0-4) Urine Hyaline Casts (Auto) 1-5 /lpf (0-5) Urine Epithelial Cells (Auto) 5-10 /lpf (0-5) Urine Bacteria (Auto) NEG (NEG) Labs reviewed by ED physician. Medications Administered Medications (Trade) Dose Ordered Sig/Dae Route Start Time Stop Time Status Last Admin Dose Admin Albuterol/ Ipratropium (Duoneb) 12 ml ONE ONCE INH 02/08/18 10:45 02/08/18 10:49 DC 02/08/18 11:09 12 ML Dexamethasone Sodium Phosphate 10 mg/Syringe 2.5 ml @ 1 mls/min NOW STAT IV 02/08/18 10:45 02/08/18 10:49 DC 02/08/18 11:03 1 MLS/MIN Magnesium Sulfate (Magnesium Sulfate 1gm / D5W) 1 gm NOW STAT IV 02/08/18 10:45 02/08/18 10:49 DC 02/08/18 11:02 1 GM Potassium Chloride (Eliana Ciel Elix) 40 meq NOW STAT PO 02/08/18 11:26 02/08/18 11:27 DC 02/08/18 11:38 40 MEQ ECG Per My Interpretation Indication: SOB/dyspnea Rate (beats per minute): 111 Rhythm: sinus tachycardia Findings: other (No ST elevations or depressions. No PVCs. ) ED Course 1038: Past medical records reviewed. The patient was evaluated in room C10. A complete history and physical examination was performed. 1045: Ordered Magnesium Sulfate 1 gm/D5W 1 gm IV, Dexamethasone Sodium Phosphate 10 mg/Syringe 2.5 mg IV, DuoNeb 12 mL INH. 1126: Ordered Eliana Ciel Elix 40 meq PO. 1310: Upon reexamination the patient is resting comfortably. I discussed results and treatment plan with the patient. He verbalizes agreement and understanding. I spoke with Hiwot Narayanan PA-C from the [facility] Service. The patient will be evaluated for further management. Medical Decision Differential diagnosis: Etiologies such as infections, reactive airway disease, pneumonia, pneumothorax , COPD, CHF, cardiac ischemia, pulmonary embolism, musculoskeletal, gastrointestinal, as well as others were entertained. This is a 57-year-old male who presents the emergency department complaining of shortness of breath. The patient has emphysema and has been on lengthy steroid tapers this month. This is his second visit to the emergency department. His time stamp assembler sent the patient to the emergency department. He appears moderately short of breath. For this reason an IV was established, the patient was given magnesium Decadron and hour-long breathing treatment. His potassium was also repleted here in the emergency department. Repeat examination revealed no improvement the patient's symptoms. Because of this I did discuss the case with the hospitalist service who agreed to admit the patient. Patient was in agreement with the treatment plan. Medication Reconcilliation Current Medication List: was personally reviewed by me Blood Pressure Screening Patient's blood pressure: Normal blood pressure Blood pressure disposition: Did not require urgent referral Consults Time Called: 1305 Consulting Physician: Hiwot Narayanan PA-C - [facility] Returned Call: [phone] I discussed the patient's case with Hiwot Narayanan PA-C, she has agreed to evaluate the patient for further management and care. Impression Primary Impression: Emphysema of lung Scribe Attestation The scribe's documentation has been prepared under my direction and personally reviewed by me in its entirety. I confirm that the note above accurately reflects all work, treatment, procedures, and medical decision making performed by me. Departure Information Dispostion Being Evaluated By Hospitalist Referrals Isak Zuniga M.D. (PCP) Patient Instructions My [facility] Problem Qualifiers Primary Impression: Emphysema of lung Emphysema type: unspecified Qualified Codes: J43.9 - Emphysema, unspecified
[2018-02-08] MEDS ORDERED: ONDANSETRON INJ 2 MG/ML 2 ML VIAL IV PRN (13:45)
[2018-02-08] MEDS ORDERED: IPRATROPIUM BROMIDE/ALBUTEROL respimat INH INH PRN (13:45)
[2018-02-08] MEDS ORDERED: MAGNESIUM HYDROXIDE SUSP 30 ML UDC PO PRN (13:45)
[2018-02-08] MEDS ORDERED: POLYETHYLENE (MIRALAX) 17 GM PACK PO PRN (13:45)
[2018-02-08] MEDS ORDERED: TEMAZEPAM 15 MG CAP PO PRN (13:45)
[2018-02-08] MEDS ORDERED: ALUMINUM/MAGNESIUM/SIMETH (MAALOX MAX) 30 ML UDC PO PRN (13:45)
[2018-02-08] MEDS ORDERED: ACETAMINOPHEN 325 MG TAB PO PRN (13:45)
--- NOTE | 2018-02-08 14:14 | History and Physical ---
History & Physical Date & Time of Service: February 08, 2018 at 13:55 Chief Complaint: Breathing Primary Care Physician: Isak Zuniga M.D. History of Present Illness Source: patient Mr. Rosales is a 57 y/o male with PMHx of Stage IV Non-Small Cell Lung CA ( Remission 2013), H/O PE (April 2016 - off AC), Advanced Emphysema, Chronic Constipation, and GERD who presents to the ED c/o ongoing SOB. Patient has had ongoing worsening SOB x approx. 8 weeks. He was started on steroid taper in December and states he would get a couple days of relief then back to worsening SOB. He was then seen in the ED on January 21 and had Dexamethasone injection that he feels helped better than other steroids but only initially. He was also placed on a steroid taper at that time. He then presented to his PCP on January 28 for these complains. He was given Ipratropium to add to his albuterol nebulizer, methylprednisolone injection, and again a steroid taper. He reports that he continues to have wheezing and SOB. He states it is worse in the AM and has thick yellow sputum that he is able to cough out but is very continuous. He has associated nasal congestion and scratchy throat. Appears to have thrush at this time. He states at rest is SOB is better but he has to take frequent breaks with simple tasks such as showering. He also reports working at the [place] [employer] and he doesn't have known seasonal allergies but feels this may be factoring into things as he largely works outside. He does not think he has every required a bronchoscopy or need for intubation with exacerbations. He follows with Dr. Vidal. He normally does not wear O2. Past Medical/Surgical History 1. Severe Emphysema/COPD 2. Non-Small Cell Lung CA - Stage IV - Remission 2013 4. PE - April 2016 - Off Anti-Coagulatin 5. Chronic Pain 6. Chronic Constipation 7. S/P Cholecystectomy 8. S/P PEG tube with Eventual Removal 9. A Port Placement in L Upper Chest Family History Cancer Diabetes mellitus Gallbladder disease Heart disease Hypertension Kidney stones Social History Smoking Status: Current Some Day Smoker Drug Use: none Marital Status: single Housing status: lives alone Occupational Status: unemployed Immunizations History of Influenza Vaccine: No History of Tetanus Vaccine?: Unknown History of Pneumococcal: No History of Hepatitis B Vaccine: No Allergies Coded Allergies: No Known Allergies (Verified , 02/08/18) Home Medications Scheduled Citalopram (Citalopram Hydrobromide), 20 MG PO QAM Fexofenadine Hcl (Priya), 180 MG PO DAILY Fluticasone Prop/Salmeterol (Advair Diskus 500/50 60 Dose), 1 PUFF INH BID Lubiprostone (Amitiza), 8 MCG PO BID Pantoprazole (Pantoprazole Sodium), 40 MG PO QAM Prednisone (Prednisone), 10 MG PO DIRECTED Triamcinolone Acetonide (Nasal (Nasacort Allergy 24Hr), 2 SPRAYS BOYD DAILY Umeclidinium [place] (Incruse Ellipta), 1 PUFF INH QPM Scheduled PRN Albuterol Sulf (Proventil 0.083% 2.5MG/3ML), 3 ML NEB Q4-6HRS PRN for SOB/ Wheezing Ipratropium-Albuterol (Combivent Respimat), 1 PUFF INH QID PRN for Shortness of Breath Temazepam (Restoril), 30 MG PO HS PRN for Sleep Review of Systems Constitutional: No fever, No chills ENT: + nasal symptoms, + problem reported (itchy throat but not sore), No sore throat Respiratory: + cough, + sputum, + wheezing, + dyspnea on exertion, + dyspnea at rest, No hemoptysis Cardiovascular: No chest pain, No palpitations Abdomen: No pain, No nausea, No vomiting, No diarrhea, No constipation Musculoskeletal: No swelling, No calf pain Neurologic: + numbness/tingling (b/l lower extremities - chronic) Hematologic / Lymphatic: No abnormal bleeding/bruising Integumentary: No rash Allergic / Immunologic: No environmental allergies, No seasonal allergies Physical Exam Vital Signs Date Time Temp Pulse Resp B/P (MAP) Pulse Ox O2 Delivery O2 Flow Rate FiO2 02/08/18 13:12 107 02/08/18 13:00 92 Room Air 02/08/18 13:00 107 20 94/67 92 Room Air 02/08/18 12:03 105 22 113/80 99 Nebulizer 02/08/18 11:12 105 20 98 Room Air 02/08/18 10:44 112 02/08/18 10:28 96 Room Air 02/08/18 10:24 36.6 121 18 102/67 95 Room Air 02/08/18 10:24 95 Room Air General Appearance: WD/WN, no apparent distress Head: normocephalic, atraumatic Eyes: sclerae normal ENT: hearing grossly normal Neck: supple, no JVD, trachea midline Respiratory/Chest: no respiratory distress, no accessory muscle use, + decreased breath sounds (diffusely with poor aeration; no wheezing or other adventitious breath sounds), + pertinent finding (Port in L upper chest) Cardiovascular: regular rate, rhythm, no gallop, no murmur Abdomen/GI: normal bowel sounds, non tender, soft Extremities/Musculoskelatal: no calf tenderness, no pedal edema Neurologic/Psych: alert, oriented x 3 Skin: normal color, warm/dry Diagnostics Laboratory Results Results Past 24 Hours Test 02/08/18 10:48 02/08/18 11:04 02/08/18 12:20 Range/Units White Blood Count 11.25 4.8-10.8 K/uL Red Blood Count 5.33 4.7-6.1 M/uL Hemoglobin 16.6 14.0-18.0 g/dL Hematocrit 47.9 42-52 % Mean Corpuscular Volume 89.9 80-100 fL Mean Corpuscular Hemoglobin 31.1 25-34 pg Mean Corpuscular Hemoglobin Concent 34.7 32-36 g/dl Platelet Count 227 130-400 K/uL Mean Platelet Volume 9.2 7.4-10.4 fL Neutrophils (%) (Auto) 88.1 % Lymphocytes (%) (Auto) 5.3 % Monocytes (%) (Auto) 5.2 % Eosinophils (%) (Auto) 0.4 % Basophils (%) (Auto) 0.2 % Neutrophils # (Auto) 9.90 1.4-6.5 K/uL Lymphocytes # (Auto) 0.60 1.2-3.4 K/uL Monocytes # (Auto) 0.59 0.11-0.59 K/uL Eosinophils # (Auto) 0.05 0-0.5 K/uL Basophils # (Auto) 0.02 0-0.2 K/uL RDW Standard Deviation 54.6 36.4-46.3 fL RDW Coefficient of Variation 16.5 11.5-14.5 % Immature Granulocyte % (Auto) 0.8 % Immature Granulocyte # (Auto) 0.09 0.00-0.02 K/uL Sodium Level 139 136-145 mmol/L Potassium Level 3.3 3.5-5.1 mmol/L Chloride Level 105 98-107 mmol/L Carbon Dioxide Level 25 21-32 mmol/L Anion Gap 9.0 3-11 mmol/L Blood Urea Nitrogen 13 7-18 mg/dl Creatinine 1.32 0.60-1.40 mg/dl Est Creatinine Clear Calc Drug Dose 66.8 ml/min Estimated GFR () 68.9 Estimated GFR (Non- 59.5 BUN/Creatinine Ratio 9.8 10-20 Random Glucose 193 70-99 mg/dl Calcium Level 8.4 8.5-10.1 mg/dl Total Bilirubin 0.8 0.2-1 mg/dl Aspartate Amino Transf (AST/SGOT) 9 15-37 U/L Alanine Aminotransferase (ALT/SGPT) 28 12-78 U/L Alkaline Phosphatase 80 45-117 U/L Troponin I < 0.015 0-0.045 ng/ml Total Protein 6.6 6.4-8.2 gm/dl Albumin 3.1 3.4-5.0 gm/dl Globulin 3.5 2.5-4.0 gm/dl Albumin/Globulin Ratio 0.9 0.9-2 Influenza Type A Antigen Neg for Influ A NEG Influenza Type B Antigen Neg for Influ B NEG Urine Color YELLOW Urine Appearance CLEAR CLEAR Urine pH 6.5 4.5-7.5 Urine Specific [place] 1.023 1.000-1.030 Urine Protein NEG NEG Urine Glucose (UA) 2+ NEG Urine Ketones NEG NEG Urine Occult Blood 2+ NEG Urine Nitrite NEG NEG Urine Bilirubin NEG NEG Urine Urobilinogen NEG NEG Urine Leukocyte Esterase NEG NEG Urine WBC (Auto) 1-5 0-5 /hpf Urine RBC (Auto) 5-10 0-4 /hpf Urine Hyaline Casts (Auto) 1-5 0-5 /lpf Urine Epithelial Cells (Auto) 5-10 0-5 /lpf Urine Bacteria (Auto) NEG NEG Diagnostic Radiology CHEST ONE VIEW PORTABLE CLINICAL HISTORY: 57 years-old Male presenting with Pt c/o SOB. TECHNIQUE: Portable upright AP view of the chest was obtained. COMPARISON: 01/21/2018. FINDINGS: Left subclavian Mediport terminates in the mid SVC. Cardiomediastinal silhouette normal. Heterogeneity of lung parenchyma with radiolucency of the upper lobes, left greater than right. Minimal irregular opacities at the lung bases, left greater than right. No new focal opacity. No large pleural effusion or pneumothorax. Degenerative changes of the thoracic spine. Cholecystectomy clips noted. IMPRESSION: 1. Findings suggest emphysema. No focal infiltrate to suggest pneumonia. The presence of spiculated nodules in the upper lobes are better appreciated on prior CT. EKG Poor data quality, interpretation may be adversely affected Sinus tachycardia Possible Left atrial enlargement Nonspecific ST abnormality Abnormal ECG When compared with ECG of 21-JAN-2018 15:36, No significant change was found Confirmed by NIKI CARRION ([id number]) on 02/08/2018 11:39:57 AM Impression Assessment and Plan Mr. Rosales is a 57 y/o male with PMHx of Stage IV Non-Small Cell Lung CA ( Remission 2013), H/O PE (April 2016 - off AC), Advanced Emphysema, Chronic Constipation, and GERD who presents to the ED c/o ongoing SOB. Dyspnea 2/2 Severe Emphysema Failed Outpatient Treatment: - Patient remains with appropriate saturations but continues with SOB. Suspect some element of COPD/Emphysema with some fibrotic changes 2/2 radiation he received in the past for his Lung CA. Also c/o thick secretions which may be playing a large role in his presentation - Dexamethasone IV in ED and will continue Methylprednisolone 60 mg IV Q8H - Duonebx Q6H and add Mucomyst BID; Flutter valve/incentive spirometry; Mucinex 1200 mg BID; Advair BID - Zithromax 500 mg IV x 3 days - no evidence of pneumonia on imaging - Priya 180 mg daily; Nasal spray daily - Could consider CT to further assess lung mcnair; does have a remote history of PE and this should be kept in mind however symptoms favor continued COPD exacerbation - Consult pulmonology - appreciate assistance with med adjustments or intervention - never had bronch in the past with exacerbations...is coughing secretions on his own at this time Oral Thrush: - Nystatin QID Chronic Constipation: - Miralax PRN; Amitiza would need to be brought in DVT Prophylaxis: Lovenox Code Status: FULL RESUSCITATION -- Patient states he signed a DNR however when asking him about this he states he would want us to perform CPR initially but no long-term ventilation - this can be re-evaluated Disposition: - Possible home tomorrow pending treatment response Resident Physician Supervision Note: I was present with the PA during the history and exam. I discussed the case with the PA and agree with the findings and plan as documented in the note. Any exceptions or clarifications are listed here: 57 y/o M Hx lung CA, PE, advanced COPD - presenting with persistent SOB, wheezing, labored breathing having failed 2 courses of outpt steroids. OE AAO x 3 S1,2 R Poor air entry - wheezing in all lung mcnair NT, ND No CCE PORT in L chest P: IV steroids, Zithro, Nebs, 02 protocol May need pulm consult if there is no improvement Documented By: Don Gómez Advanced Directives Existing Living Will: No Existing Power of Farm Product Purchaser: No Resuscitation Status VTE Prophylaxis Will order VTE Prophylaxis: Yes
[2018-02-08] MEDS ORDERED: IV FLUIDS COMPLETED PRN (14:30)
[2018-02-08] MEDS ORDERED: GUAIFENESIN 600 MG TABCR PO SCH (15:00)
[2018-02-08 16:00] VITALS: BP 113/74; PULSE 112; TEMP 36.5; O2SAT 95
[2018-02-08] MEDS: ALBUT/IPRATROP 3MG/0.5MG NEB 3 ML VIAL NEB SCH ×2 (16:05→19:13)
[2018-02-08 16:07] VITALS: PULSE 103; O2SAT 98
[2018-02-08] MEDS: AZITHROMYCIN 250 MG TAB PO SCH (18:07)
[2018-02-08] MEDS: NYSTATIN SUSP 500,000 U/5 ML UDC PO SCH ×2 (18:08→20:31)
[2018-02-08] MEDS: METHYLPREDNISOLONE IV 60 MG in SYRINGE 0 ML IV SCH (18:12)
[2018-02-08] MEDS: ACETYLCYSTEINE 20% INHAL SOLN ***DISPENSED BY RESP. INH SCH (19:13)
[2018-02-08 19:16] VITALS: PULSE 107; O2SAT 97
[2018-02-08] MEDS ORDERED: NURSING VERBAL MED ORDER ONE (19:30)
[2018-02-08] MEDS: GUAIFENESIN 600 MG TABCR PO SCH (20:32)
[2018-02-08] MEDS: FLUTICASONE/SALMETEROL (ADVAIR) 500/50 INH 14 PUFF INH SCH (20:32)
[2018-02-08] MEDS: ENOXAPARIN 40 MG/0.4 ML SYR SQ SCH (20:35)
[2018-02-08] MEDS ORDERED: DICYCLOMINE HCL 20 MG TAB PO ONE (22:15)
[2018-02-09] VITALS (7 sets, daily range): BP systolic 102–122; BP diastolic 69–82; PULSE 98–114; TEMP 36.4–37.2; O2SAT 93–96
[2018-02-09] MEDS ORDERED: IBUPROFEN 200 MG TAB PO STA (00:54)
[2018-02-09] MEDS: METHYLPREDNISOLONE IV 60 MG in SYRINGE 0 ML IV SCH ×3 (01:26→18:28)
[2018-02-09] MEDS: ALBUT/IPRATROP 3MG/0.5MG NEB 3 ML VIAL NEB SCH ×4 (01:36→19:39)
[2018-02-09 05:54] LABS: HEMATOCRIT 45.8 % (42-52); HEMOGLOBIN 15.4 g/dL (14.0-18.0); MEAN CELL VOLUME 89.1 fL (80-100); MEAN CORPUSCULAR HGB CONC 33.6 g/dl (32-36); MEAN PLATELET VOLUME 9.3 fL (7.4-10.4); PLATELET COUNT 228 K/uL (130-400); RED CELL DISTRIBUTION WIDTH CV 16.4 % (11.5-14.5); RED CELL DISTRIBUTION WIDTH SD 53.8 fL (36.4-46.3); WHITE BLOOD COUNT 11.17 K/uL (4.8-10.8)
[2018-02-09 06:27] LABS: CALCIUM 8.8 mg/dl (8.5-10.1); CREATININE 1.23 mg/dl (0.60-1.40); POTASSIUM 3.9 mmol/L (3.5-5.1)
[2018-02-09] MEDS: ACETYLCYSTEINE 20% INHAL SOLN ***DISPENSED BY RESP. INH SCH ×2 (07:02→19:39)
[2018-02-09] MEDS: FLUTICASONE/SALMETEROL (ADVAIR) 500/50 INH 14 PUFF INH SCH ×2 (08:01→21:05)
[2018-02-09] MEDS: GUAIFENESIN 600 MG TABCR PO SCH ×2 (08:02→21:06)
[2018-02-09] MEDS: FEXOFENADINE HCL 180 MG TAB PO SCH (08:02)
[2018-02-09] MEDS: AZITHROMYCIN 250 MG TAB PO SCH (08:02)
[2018-02-09] MEDS: PANTOprazole SOD 40 MG TAB PO SCH (08:02)
[2018-02-09] MEDS: TRIAMCINOLONE ACET NASAL SPRAY 10.8ML BTL NAE SCH (08:02)
[2018-02-09] MEDS: NYSTATIN SUSP 500,000 U/5 ML UDC PO SCH ×4 (08:02→21:06)
[2018-02-09] MEDS: CITALOPRAM 20 MG TAB PO SCH (08:02)
--- NOTE | 2018-02-09 08:46 | Pulmonary Consultation ---
History General Date of Service: February 09, 2018. Stated Complaint: Copd With Exacerbation HPI The patient is a 57 year old male who presents to [facility] with complaints of Copd With Exacerbation. The patient's primary care provider is Isak Zuniga M.D.. 57-year-old male admitted for continuous/progressive dyspnea on exertion for an 8 week window. Patient has a past medical history significant for: Stage IV lung carcinoma, left mainstem bronchial obstruction, severe COPD, recurrent infections/pneumonias, pulmonary embolism--not on anticoagulation, adrenal insufficiency/adrenal crisis and oral thrush. The patient is noted progressive dyspnea on exertion with intermittent only productive cough since September 2017. He is being treated with multiple rounds of antibiotics as well as steroids from prednisone, methylprednisolone and Decadron. The patient did note his most dramatic improvement with Decadron injection 3 weeks ago. He notes he is not only short of breath but he is feeling notably lethargic but denies: Fever, chills, riders, B type symptoms, night sweats, hemoptysis, unintentional weight loss, pleurisy or classic cardiac chest pain. Of note the patient has been noting expiratory stridor for multiple years now but appears to have occurred in the last 2-3 years not back in 2011 when he was initially diagnosed with stage IV adenocarcinoma of the lung. Current inpatient work-up EKG 02/08/2018: Sinus tachycardia rate 110 WBC: 11K K: 3.3 Albumin: 3.1 Influenza a and B antigen negative CXR 02/08/2018: Left-sided port, triangular type infiltrative pattern the left lower lobe along the diaphragm, PMHx of Stage IV Non-Small Cell Lung CA (Remission 2013), H/O PE (April 2016 - off AC), Advanced Emphysema, Chronic Constipation, and GERD who presents to the ED c/o ongoing SOB. CT angiogram chest 01/21/2018: Right upper lobe 15 mm ground-glass nodule, 10 mm left upper lobe nodule/scar, right upper lobe 11 mm scar tissue, right upper lobe 6 mm nodule, 10 mm lingular nodule versus scar tissue PmHx: 1. Stage IV adenocarcinoma left lung (XRT, Chemo, temporary stent)/oncologist Dr. Langley/previous location distal trachea left mainstem bronchus 2. 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 History of adrenal crisis--steroid dependence 4. Acute bronchitis 5. Gastric cutaneous fistula and cholelithiasis 6. Hematemesis 7. Acute pulmonary embolism 8. Adenocarcinoma of lung ( 9. Emphysema (FEV1: 43%) 10. Peptic ulcer disease 11. Allergic rhinitis 12. Anxiety 13. Candidal esophagitis 14. Cholecystitis, acute with cholelithiasis 15. Chronic cholecystitis 16. Chronic constipation 17. Chronic obstructive pulmonary disease ( 18. Chronic pain (back and abd) 19. Colon polyp 20. Constipation 21. Depression 22. Difficulty sleeping 23. Dilated bile duct 24. Disorder of appendix 25. Elevated PSA 26. Esophageal reflux 27. Gallstones 28. Gastritis 29. Heme positive stool (secondary to gastritis) 30. Hypercholesterolemia 31. Hyperglycemia (R73.9) 32. Hypotension (secondary to adrenal crisis) 33. Hypoxia 34. Ileus 35. Internal hemorrhoids 36. Intractable vomiting 37. Male erectile disorder of organic origin 38. Melanosis coli 39. Multiple pulmonary nodules 40. Nephrolithiasis 41. Opioid withdrawal 42. Oral thrush 43. Paresthesias 44. Therapeutic opioid induced constipation PsHx: 1. Bronchoscopy For Relief Of Stenosis By Stent In Bronchus 2. Chest Tube Insertion 3. Cholecystectomy Laparoscopic lap nadia, and lap takedown gastro-cutaneoud fistula-09/12/15- 4. Percutaneous Placement Of Gastrostomy Tube 5. Bronchoscopic evaluation 04/30/2012 Cholo Dejesus notes minimal obstruction of the left mainstem bronchus only 5 % Family History Father 1. Family history of Coronary Artery Disease 2. Family history of diabetes mellitus (Z83.3) 3. Family history of lung cancer (Z80.1) Brother 4. Family history of hypertension (Z82.49) Aunt 5. Family history of malignant neoplasm (Z80.9) Uncle 6. Family history of diabetes mellitus (Z83.3) Paternal Uncle 7. Family history of diabetes mellitus (Z83.3) Social History Alcohol Use (History) Former smoker (40 year pack year history quit 2011) Outpatient medications 1. Advair Diskus 500-50 MCG/DOSE Inhalation Aerosol Powder Breath 2. Albuterol Sulfate (5 MG/ML) 0.5% Inhalation Nebulization Solution; 1 vial q 6hr 3. Amitiza 8 MCG Oral Capsule; take 1 capsule by mouth twice a day; 4. Citalopram Hydrobromide 20 MG Oral Tablet; take 1 tablet by mouth once daily 5. Combivent Respimat 20-100 MCG/ACT Inhalation Aerosol Solution; inhale 1 puff by mouth four times a day 6. Nasacort Allergy 24HR 55 MCG/ACT Nasal Aerosol; INSTILL 2 SQUIRT Daily; 7. Pantoprazole Sodium 40 MG Oral Tablet Delayed Release 8. PredniSONE 10 MG Oral Tablet; take 1 tablet by mouth once daily (10/28/17) 9. Temazepam 30 MG Oral Capsule; TAKE 1 CAPSULE BY MOUTH AT BEDTIME IF NEEDED 10. Viagra 50 MG Oral Tablet; TAKE ONE TABLET BY MOUTH DAILY ONE HOUR BEFORE NEEDED Allergies 1. No Known Drug Allergies Historian: patient, EMS Review of Systems Constitutional: reports: as stated in HPI Eyes: reports: no symptoms ENT: reports: other (Expiratory stridor) Cardiovascular: reports: as stated in HPI Respiratory: reports: as stated in HPI Gastrointestinal: reports: as stated in HPI Genitourinary - Male: reports: no symptoms Musculoskeletal: reports: myalgias Integumentary: reports: no symptoms Neurologic: reports: no symptoms Psychiatric: reports: no symptoms Endocrine: no symptoms Hematologic / Lymphatic: no symptoms Allergic / Immunologic: no symptoms Past Medical History Past Medical History: Please refer to HPI Past Surgical History: Please refer to HPI Family History Cancer Diabetes mellitus Gallbladder disease Heart disease Hypertension Kidney stones Please refer to HPI Social History Please refer to HPI Hx Tobacco Use In Past Year?: No (quit in 2011, but now smokes "a little") Smoking Status: Current Some Day Smoker Marital status: single Housing status: lives alone Occupational Status: unemployed Immunizations History of Influenza Vaccine: No History of Tetanus Vaccine?: Unknown History of Pneumococcal: No History of Hepatitis B Vaccine: No History of MDRO History of MDRO: No Allergies Coded Allergies: No Known Allergies (Verified , 02/08/18) Current Medications Reported Home Medications Medications Dose Route/Sig Max Daily Dose Days Date Category Dose Instructions Priya (Fexofenadine Hcl) 180 Mg Tab 180 Mg PO DAILY 10/06/17 Rx Nasacort Allergy 24Hr (Triamcinolone Acetonide (Nasal) 55 Mcg/Act Spr 2 Sprays BOYD DAILY 10/06/17 Rx Prednisone 10 Mg Tab 10 Mg PO DIRECTED 10/06/17 Rx start 10/07/17: 6 tabs PO days 1/2, 5 tabs days 3/4, 4 tabs days /6, 3 tabs days 78, 2 tabs days 06/14. Incruse Ellipta (Umeclidinium [place]) 62.5 Mcg/Inh Inh 1 Puff INH QPM 10/04/17 Reported Amitiza (Lubiprostone) 8 Mcg Cap 8 Mcg PO BID 10/04/17 Reported Advair Diskus 500/50 60 Dose (Fluticasone Prop/Salmeterol) 1 Ea Aerp 1 Puff INH BID 12/10/16 Reported Proventil 0.083% 2.5MG/3ML (Albuterol Sulf) 2.5 Mg/3 Ml Nebu 3 Ml NEB Q4-6HRS PRN 12/01/16 Reported Pantoprazole Sodium (Pantoprazole) 40 Mg Tab 40 Mg PO QAM 12/01/16 Reported Restoril (Temazepam) 30 Mg Cap 30 Mg PO HS PRN 07/16/16 Reported Combivent Respimat (Ipratropium-Albuterol) 1 Aer Aer 1 Puff INH QID PRN 07/16/16 Reported Citalopram Hydrobromide (Citalopram) 20 Mg Tab 20 Mg PO QAM 10/12/14 Reported Physical Physical Exam Vital Signs: Date Time Temp Pulse Resp B/P (MAP) Pulse Ox O2 Delivery O2 Flow Rate FiO2 02/09/18 07:25 36.4 111 20 102/69 (80) 02/09/18 07:02 105 17 95 Room Air 02/09/18 01:37 102 18 96 Room Air 02/09/18 00:00 36.5 98 20 118/82 (94) 95 Room Air 02/09/18 00:00 95 Room Air 02/08/18 19:16 107 18 97 Room Air 02/08/18 16:07 103 18 98 Room Air 02/08/18 16:00 Room Air 02/08/18 16:00 36.5 112 20 113/74 (87) 95 Room Air 02/08/18 15:00 106 28 93/76 96 Room Air 02/08/18 13:12 107 02/08/18 13:00 92 Room Air 02/08/18 13:00 107 20 94/67 92 Room Air 02/08/18 12:03 105 22 113/80 99 Nebulizer 02/08/18 11:12 105 20 98 Room Air 02/08/18 10:44 112 02/08/18 10:28 96 Room Air 02/08/18 10:24 36.6 121 18 102/67 95 Room Air 02/08/18 10:24 95 Room Air General Appearance: NO APPARENT DISTRESS Head: NORMOCEPHALIC, ATRAUMATIC Eyes: PERRLA, NO DISCHARGE, EOMI, SCLERAE NORMAL ENT: NORMAL EAR EXAM, NORMAL NASAL EXAM, NORMAL MOUTH EXAM, other Neck: NORMAL RANGE OF MOTION, NO TENDERNESS, TRACHEA MIDLINE, other ( Expiratory stridor appreciated) Respiratory: other (Decreased breath sounds bilaterally some rhonchi appreciated left lower lobe) Cardiovasular: REGULAR RATE/RHYTHM, NORMAL S1S2, NO M/G/R, NO MURMUR, NO GALLOP Abdomen: NON TENDER, NORMAL BOWEL SOUNDS, NO REBOUND, NO MASSES, NO GUARDING Genitourinary - Male: EXTERNAL GENITALIA NORMAL Back: NORMAL INSPECTION, NO MIDLINE TENDERNESS, NO CVA TENDERNESS, NO PARAVERTEBRAL TTP Upper Extremities: NO EDEMA, NO DEFORMITY, NORMAL ROM Lower Extremities: NO EDEMA, NO DEFORMITY, NORMAL ROM Pulses: carotid (R) (2+), carotid (L) (2+), posterior tibial (R), posterior tibial (L) (2+) Neuro: ALERT, ORIENTED x 3, NORMAL MOTOR EXAM, NORMAL SENSATION, NORMAL CEREBELLAR EXAM Reflexes: biceps (R) (2+), bicpes (L) (2+), patellar (R) (2+), patellar (L) (2+ ) Babinski Testing: right (downgoing), left (downgoing) Psychiatric: NORMAL AFFECT, NO SUICIDAL IDEATION, CONTRACTS FOR SAFETY Diagnostics Labs Results Past 24 Hours Test 02/08/18 10:48 02/08/18 11:04 02/08/18 12:20 02/09/18 05:47 Range/Units White Blood Count 11.25 11.17 4.8-10.8 K/uL Red Blood Count 5.33 5.14 4.7-6.1 M/uL Hemoglobin 16.6 15.4 14.0-18.0 g/dL Hematocrit 47.9 45.8 42-52 % Mean Corpuscular Volume 89.9 89.1 80-100 fL Mean Corpuscular Hemoglobin 31.1 30.0 25-34 pg Mean Corpuscular Hemoglobin Concent 34.7 33.6 32-36 g/dl Platelet Count 227 228 130-400 K/uL Mean Platelet Volume 9.2 9.3 7.4-10.4 fL Neutrophils (%) (Auto) 88.1 % Lymphocytes (%) (Auto) 5.3 % Monocytes (%) (Auto) 5.2 % Eosinophils (%) (Auto) 0.4 % Basophils (%) (Auto) 0.2 % Neutrophils # (Auto) 9.90 1.4-6.5 K/uL Lymphocytes # (Auto) 0.60 1.2-3.4 K/uL Monocytes # (Auto) 0.59 0.11-0.59 K/uL Eosinophils # (Auto) 0.05 0-0.5 K/uL Basophils # (Auto) 0.02 0-0.2 K/uL RDW Standard Deviation 54.6 53.8 36.4-46.3 fL RDW Coefficient of Variation 16.5 16.4 11.5-14.5 % Immature Granulocyte % (Auto) 0.8 % Immature Granulocyte # (Auto) 0.09 0.00-0.02 K/uL Sodium Level 139 138 136-145 mmol/L Potassium Level 3.3 3.9 3.5-5.1 mmol/L Chloride Level 105 105 98-107 mmol/L Carbon Dioxide Level 25 24 21-32 mmol/L Anion Gap 9.0 9.0 3-11 mmol/L Blood Urea Nitrogen 13 17 7-18 mg/dl Creatinine 1.32 1.23 0.60-1.40 mg/dl Est Creatinine Clear Calc Drug Dose 66.8 71.7 ml/min Estimated GFR () 68.9 75.1 Estimated GFR (Non- 59.5 64.8 BUN/Creatinine Ratio 9.8 13.8 10-20 Random Glucose 193 221 70-99 mg/dl Calcium Level 8.4 8.8 8.5-10.1 mg/dl Total Bilirubin 0.8 0.2-1 mg/dl Aspartate Amino Transf (AST/SGOT) 9 15-37 U/L Alanine Aminotransferase (ALT/SGPT) 28 12-78 U/L Alkaline Phosphatase 80 45-117 U/L Troponin I < 0.015 0-0.045 ng/ml Total Protein 6.6 6.4-8.2 gm/dl Albumin 3.1 3.4-5.0 gm/dl Globulin 3.5 2.5-4.0 gm/dl Albumin/Globulin Ratio 0.9 0.9-2 Influenza Type A Antigen Neg for Influ A NEG Influenza Type B Antigen Neg for Influ B NEG Urine Color YELLOW Urine Appearance CLEAR CLEAR Urine pH 6.5 4.5-7.5 Urine Specific [place] 1.023 1.000-1.030 Urine Protein NEG NEG Urine Glucose (UA) 2+ NEG Urine Ketones NEG NEG Urine Occult Blood 2+ NEG Urine Nitrite NEG NEG Urine Bilirubin NEG NEG Urine Urobilinogen NEG NEG Urine Leukocyte Esterase NEG NEG Urine WBC (Auto) 1-5 0-5 /hpf Urine RBC (Auto) 5-10 0-4 /hpf Urine Hyaline Casts (Auto) 1-5 0-5 /lpf Urine Epithelial Cells (Auto) 5-10 0-5 /lpf Urine Bacteria (Auto) NEG NEG Magnesium Level 2.3 1.8-2.4 mg/dl Diagnostic Radiology Please refer to HPI EKG Please refer to HPI Impression Assessment and Plan 57-year-old male with severe COPD FEV1 43%, history of adenocarcinoma of the lung stage IV and progressive dyspnea on exertion over the last 6 months: 1. Dyspnea: Patient's dyspnea has been progressive over the last 6 months and also appears to be causing increased fatigue. He has noted some voice changes as well as productive sputum over that time and is failed multiple courses of different antibiotics and steroids. At this time I like to send off a random cortisols the patient has had a previous history of adrenal insufficiency, continue current steroids but will decrease to penicillin 40 mg daily and set up for bronchoscopic evaluation of upper airway and stridor type sounds on expiration. Also spirometry with flow volume loop and CT imaging of the chest will be performed.
[2018-02-09] MEDS ORDERED: DEXTROSE 50% 50 ML SYR IV PRN (09:15)
[2018-02-09] MEDS ORDERED: GLUCAGON FOR INJ 1 MG VIAL SQ PRN (09:15)
[2018-02-09] MEDS ORDERED: CARBOHYDRATES FOR HYPOGLYCEMIA PO PRN (09:15)
[2018-02-09] MEDS ORDERED: GLUCOSE 40% GEL 15 GM TUBE PO PRN (09:15)
[2018-02-09] MEDS ORDERED: GLUCOSE 10 TABS/TUBE PO PRN (09:15)
--- NOTE | 2018-02-09 09:45 | DIAGNOSTIC IMAGING REPORT ---
ADDENDUM New lingular consolidation suspected be atelectasis. This could be followed to resolution. Electronically signed by: Angel Haines M.D. 02/09/2018 9:47 AM Dictated Date/Time: 02/09/2018 9:47 AM ORIGINAL REPORT (CHEST) THORAX WITHOUT CLINICAL HISTORY: 57 years-old Male presenting with Dyspnea, COPD. TECHNIQUE: Multidetector CT imaging of the chest was performed without the use of intravenous contrast. IV contrast: None. A dose lowering technique was used consistent with the principles of ALARA (as low as reasonably achievable). COMPARISON: 01/21/2018. CT DOSE (mGy.cm): The estimated cumulative dose is 288.45 mGy.cm. FINDINGS: Tool Analyst topogram: Left subclavian Mediport terminates in the mid SVC. On soft tissue windows, normal thyroid and thoracic inlet. Bilateral gynecomastia. No axillary, supraclavicular, or mediastinal lymphadenopathy. Evaluation of the idalia limited without intravenous contrast. Atherosclerosis of the aorta. Normal heart size. Coronary artery calcification. Trace pericardial effusion. No pleural effusion. Cholecystectomy clips noted. Hepatic steatosis. On lung windows, severe upper lobe predominant emphysema. Multifocal irregular nodules again evident, unchanged: 9 mm solid right upper lobe (series 4 image 156), 7 mm solid right upper lobe (series 4 image 174), 7 mm solid left upper lobe (series 4 image 132), 10 mm solid left upper lingula (series 4 image 174). Minimal punctate nodules at the right apex unchanged. New consolidation in the lingula (series 4 image 252), possibly atelectasis. Mild bronchial wall thickening. Central airways patent. On bone windows, degenerative changes of the spine. IMPRESSION: 1. Severe emphysema with multiple irregular solid nodules unchanged from prior. No acute intrathoracic pathology. 2. Punctate nodularity at the right upper lobe may relate to respiratory bronchiolitis/smoking related lung injury or additional nodules. 3. Hepatic steatosis. Electronically signed by: Angel Haines M.D. 02/09/2018 9:44 AM Dictated Date/Time: 02/09/2018 9:36 AM
[2018-02-09 10:15] LABS: HEMOGLOBIN A1C 6.3 % (4.5-5.6)
[2018-02-09] MEDS: INSULIN ASPART 100 UNITS/ML 3 ML PEN SC SCH ×3 (13:31→21:00)
--- NOTE | 2018-02-09 16:11 | Hospitalist Progress Note ---
Hospitalist Progress Note Date of Service February 09, 2018. (Lianet Palacio .DONTA) Subjective Pt evaluation today including: conversation w/ patient, physical exam, chart review, lab review, review of studies, review of inpatient medication list Pain: None PO Intake: Tolerating PO diet Voiding: no voiding problems Patient reports feeling better but states his breathing is still not at baseline. He complains of productive cough with yellow sputum, wheezing, and shortness of breath, although these are improving. The patient denies fevers, chills, sweats, chest pain, palpitations, claudication, nausea, vomiting, abdominal pain, dysuria, hematuria, urinary retention, paralysis, weakness, acute numbness and tingling. Additional Comments: See HPI for pertinent positives and negatives. All other systems reviewed and negative. (Lianet Palacio PA-C) Objective Vital Signs Date Time Temp Pulse Resp B/P (MAP) Pulse Ox O2 Delivery O2 Flow Rate FiO2 02/09/18 14:12 113 16 93 Room Air 02/09/18 11:18 Room Air 02/09/18 07:25 36.4 111 20 102/69 (80) 02/09/18 07:02 105 17 95 Room Air 02/09/18 01:37 102 18 96 Room Air 02/09/18 00:00 36.5 98 20 118/82 (94) 95 Room Air 02/09/18 00:00 95 Room Air 02/08/18 19:16 107 18 97 Room Air 02/08/18 16:07 103 18 98 Room Air 02/08/18 16:00 Room Air 02/08/18 16:00 36.5 112 20 113/74 (87) 95 Room Air (Lianet Palacio PA-C) Physical Exam Notes: General appearance: Well-developed, well-nourished, no apparent distress Head: Normocephalic, atraumatic Eyes: Normal inspection, PERRL, EOMI ENT: Normal ENT inspection, hearing grossly normal, pharynx normal Neck: Supple, no JVD, trachea midline Respiratory/Chest: +Decreased breath sounds throughout. Pt has audible stridor like sound w/breathing at times. Port left chest. Lungs clear to auscultation, no respiratory distress Cardiovascular: Regular rate & rhythm, no gallop, no murmur Abdomen/GI: Normal bowel sounds, non-tender, soft Extremities/Musculoskeletal: Normal inspection, no calf tenderness, no pedal edema Neurological/Psych: Alert, normal mood/affect, oriented x 3 Skin: Normal color, warm/dry, no rash (Lianet Palacio ., SANDIPC) Laboratory Results Last 24 Hours Test 02/09/18 05:47 02/09/18 09:00 02/09/18 11:22 White Blood Count 11.17 K/uL Red Blood Count 5.14 M/uL Hemoglobin 15.4 g/dL Hematocrit 45.8 % Mean Corpuscular Volume 89.1 fL Mean Corpuscular Hemoglobin 30.0 pg Mean Corpuscular Hemoglobin Concent 33.6 g/dl RDW Standard Deviation 53.8 fL RDW Coefficient of Variation 16.4 % Platelet Count 228 K/uL Mean Platelet Volume 9.3 fL Sodium Level 138 mmol/L Potassium Level 3.9 mmol/L Chloride Level 105 mmol/L Carbon Dioxide Level 24 mmol/L Anion Gap 9.0 mmol/L Blood Urea Nitrogen 17 mg/dl Creatinine 1.23 mg/dl Est Creatinine Clear Calc Drug Dose 71.7 ml/min Estimated GFR () 75.1 Estimated GFR (Non- 64.8 BUN/Creatinine Ratio 13.8 Random Glucose 221 mg/dl Estimated Average Glucose 134 mg/dl Hemoglobin A1c 6.3 % Calcium Level 8.8 mg/dl Magnesium Level 2.3 mg/dl Random Cortisol 10.56 mcg/dl Bedside Glucose 133 mg/dl (Lianet Palacio ., PHILIP-C) Diagnostic Results Reviewed the following studies and agree with interpretation as follows: (CHEST) THORAX WITHOUT CLINICAL HISTORY: 57 years-old Male presenting with Dyspnea, COPD. TECHNIQUE: Multidetector CT imaging of the chest was performed without the use of intravenous contrast. IV contrast: None. A dose lowering technique was used consistent with the principles of ALARA (as low as reasonably achievable). COMPARISON: 01/21/2018. CT DOSE (mGy.cm): The estimated cumulative dose is 288.45 mGy.cm. FINDINGS: Back Office Medical Assistant topogram: Left subclavian Mediport terminates in the mid SVC. On soft tissue windows, normal thyroid and thoracic inlet. Bilateral gynecomastia. No axillary, supraclavicular, or mediastinal lymphadenopathy. Evaluation of the idalia limited without intravenous contrast. Atherosclerosis of the aorta. Normal heart size. Coronary artery calcification. Trace pericardial effusion. No pleural effusion. Cholecystectomy clips noted. Hepatic steatosis. On lung windows, severe upper lobe predominant emphysema. Multifocal irregular nodules again evident, unchanged: 9 mm solid right upper lobe (series 4 image 156), 7 mm solid right upper lobe (series 4 image 174), 7 mm solid left upper lobe (series 4 image 132), 10 mm solid left upper lingula (series 4 image 174). Minimal punctate nodules at the right apex unchanged. New consolidation in the lingula (series 4 image 252), possibly atelectasis. Mild bronchial wall thickening. Central airways patent. On bone windows, degenerative changes of the spine. IMPRESSION: 1. Severe emphysema with multiple irregular solid nodules unchanged from prior. No acute intrathoracic pathology. 2. Punctate nodularity at the right upper lobe may relate to respiratory bronchiolitis/smoking related lung injury or additional nodules. 3. Hepatic steatosis. ADDENDUM New lingular consolidation suspected be atelectasis. This could be followed to resolution. (Lianet Palacio ., PA-C) Assessment and Plan 57 y/o male with a history of stage IV non-small cell lung cancer (2013), advanced emphysema, h/o PE (April 2016, now off AC), constipation, and GERD who presents to the ED with worsening shortness of breath. Dyspnea secondary to COPD exacerbation vs other--improving - Admit to med/surg. Will change from observation to full admission - Continue Solu-Medrol 60 mg IV q8h - DuoNebs q6h, Mucomyst BID, Mucinex 1200 mg PO BID, Advair BID - Continue pulmonary toilet w/flutter valve and incentive spirometry - Zithromax 500 mg PO qd, day #2 of 3 - Priya 180 mg daily; Nasal spray daily - Consult pulmonology, appreciate recs: Will plan for bronchoscopy tomorrow. Spirometry with flow volume loop and CT chest will be obtained. Check random cortisol due to h/o adrenal insufficiency. -Random cortisol WNL - NPO after midnight - CT of chest shows severe emphysema with multiple irregular solid nodules, unchanged from prior. Punctate nodularity at the right upper lobe may relate to respiratory bronchiolitis/smoking related lung injury or additional nodules. Oral Thrush--improving - Continue nystatin PO QID Chronic Constipation--no BM since Thursday - Miralax PRN - Pt will bring his Amitiza, wants to give it another day Prediabetes -BSG 221 this morning -Rechecked HgbA1c, 6.3 here -Insulin sliding scale -Check BSGs q ac and qhs Anxiety/depression -Continue Celexa 20 mg PO qd GERD -Continue Protonix DVT prophylaxis -Hold Lovenox tonight for bronchoscopy -SCDs Code Status -Level I, FULL RESUSCITATION STATUS (Lianet Palacio, PA-C) Supervising Note Dr. Beckre I performed a history and physical examination on the patient. I reviewed above note and agree with it. I discussed plan with APC and patient. During my face to face encounter with the patient, I answered all of the patient's questions. Patient is scheduled for a bronch. Patient reports feeling better today, still with a cough. will contiue steroids and ih meds, and antibiotics. (Diego Becker M.D.)
[2018-02-10] VITALS (9 sets, daily range): BP systolic 96–121; BP diastolic 66–83; PULSE 97–108; TEMP 36.4–36.5; O2SAT 92–97
[2018-02-10] MEDS: ALBUT/IPRATROP 3MG/0.5MG NEB 3 ML VIAL NEB SCH ×4 (01:30→19:23)
[2018-02-10] MEDS: METHYLPREDNISOLONE IV 60 MG in SYRINGE 0 ML IV SCH ×2 (01:39→09:35)
[2018-02-10 06:22] LABS: HEMATOCRIT 43.9 % (42-52); HEMOGLOBIN 14.8 g/dL (14.0-18.0); MEAN CELL VOLUME 89.8 fL (80-100); MEAN CORPUSCULAR HEMOGLOBIN 30.3 pg (25-34); MEAN CORPUSCULAR HGB CONC 33.7 g/dl (32-36); MEAN PLATELET VOLUME 9.3 fL (7.4-10.4); PLATELET COUNT 246 K/uL (130-400); RED CELL DISTRIBUTION WIDTH CV 16.6 % (11.5-14.5); RED CELL DISTRIBUTION WIDTH SD 54.7 fL (36.4-46.3); WHITE BLOOD COUNT 15.18 K/uL (4.8-10.8)
[2018-02-10 06:57] LABS: CALCIUM 8.4 mg/dl (8.5-10.1); CREATININE 0.94 mg/dl (0.60-1.40); POTASSIUM 3.9 mmol/L (3.5-5.1)
[2018-02-10] MEDS: ACETYLCYSTEINE 20% INHAL SOLN ***DISPENSED BY RESP. INH SCH ×2 (07:04→19:14)
--- NOTE | 2018-02-10 07:24 | History & Physical Bridge Note ---
H&P Re-Evaluation Bridge Note: I have examined the patient, reviewed the History & Physical and in the interval since the performance of the History & Physical I have noted the following changes of clinical significance: No changes noted
--- NOTE | 2018-02-10 07:25 | Pre Sedation Assessment ---
Pre Sedation Assessment General Date of Sedation: February 10, 2018. Vital Signs Past 12 Hours Date Time Temp Pulse Resp B/P (MAP) Pulse Ox O2 Delivery O2 Flow Rate FiO2 02/10/18 07:05 97 16 97 Room Air 02/10/18 06:41 36.5 98 18 96/66 (76) 93 Room Air 02/10/18 01:49 107 16 96 Room Air 02/10/18 00:01 Room Air 02/09/18 22:41 37.2 110 20 122/75 (91) 95 Room Air Review Cardiovascular: regular rate, rhythm, no edema, no gallop, no JVD, no murmur, normal peripheral pulses Lungs: + decreased breath sounds Pre-Sedation Airway Assessment Smoking Status: Current Some Day Smoker Hx of Sleep Apnea: No Hx of difficult intubation: No Short Thick Neck: No Thyro-mental Distance: > 3 Finger Breadths Oral Cavity: Dentures Mallampati Classification: Class II ASA Classification: Class III NPO Status Date of Last Intake of Fluids: February 09, 2018 Time of Last Intake of Fluids: 2359 Date of Last Intake of Solids: February 09, 2018 Time of Last Intake of Solids: 1900 Procedure Planning Contraindications for Sedation: None Current Medications Reviewed: Yes Notes The planned sedation has been discussed with the patient. Informed Consent was obtained. I have identified the patient, determined the appropriateness of sedation and have assessed the patient immediately prior to the procedure. All medicine(s) and interventions are by my order.
[2018-02-10] MEDS: NYSTATIN SUSP 500,000 U/5 ML UDC PO SCH ×4 (07:40→20:47)
[2018-02-10] MEDS: FLUTICASONE/SALMETEROL (ADVAIR) 500/50 INH 14 PUFF INH SCH ×2 (07:40→20:46)
[2018-02-10] MEDS: TRIAMCINOLONE ACET NASAL SPRAY 10.8ML BTL NAE SCH (07:41)
[2018-02-10] MEDS: INSULIN ASPART 100 UNITS/ML 3 ML PEN SC SCH ×4 (08:43→20:49)
[2018-02-10] MEDS: GUAIFENESIN 600 MG TABCR PO SCH ×2 (09:00→20:47)
[2018-02-10] MEDS ORDERED: LIDOCAINE 4% INH SOLN 4 ML BTL TOP ONE (13:39)
[2018-02-10] MEDS ORDERED: FENTANYL CITRATE INJ 50 MCG/1 ML 2 ML VIAL IV ONE (13:39)
[2018-02-10] MEDS ORDERED: LIDOCAINE VISCOUS 2% 100ML TOP ONE (13:39)
[2018-02-10] MEDS ORDERED: LIDOCAINE HCL 2% LOCAL 50ML VIAL INSTIL ONE (13:39)
[2018-02-10] MEDS ORDERED: MIDAZOLAM HCL 5 MG/ML 1 ML VIAL IV ONE (13:39)
--- NOTE | 2018-02-10 13:40 | Bronchoscopy Procedure Note ---
Bronchoscopy Procedure Note Procedure: Bronchoscopy, conscious sedation, bronchial lavage left lower lobe Consent: Obtained through the patient placed into the chart Pre-procedural diagnosis: Stridor Post-procedural diagnosis: Thrush Start time: 1310 End time: 1330 Total time: 20minutes Analgesia: 2% liquid lidocaine: Via nebulizer 4% gel lidocaine: Via right naris 2% liquid lidocaine: Via bronchoscopy Sedation: Versed IV: 5mg Fentanyl IV: 125g Procedure: The Olympus video bronchoscope was used for this procedure and passed down through the right naris Right naris/posterior naris/posterior oropharynx: Anatomically within normal limits, there was some thrush appreciated around the epiglottis Glottis: Anatomically within normal limits, there was some thrush appreciated around the epiglottis Vocal cords: Proper abduction and abduction, anatomically within normal limits Subglottis/trachea/Fantasma: Anatomically within normal limits, diffuse erythema and hypervascular submucosa in the distal trachea as well as the fantasma on the proximal right and left main Right bronchial tree: Right mainstem bronchus: Diffuse erythema hypervascular mucosa proximal portion of the right mainstem Right upper lobe: Anatomically within normal limits Bronchus intermedius: Anatomically within normal limits Right middle lobe: Anatomically within normal limits Right lower lobe: Anatomically within normal limits Findings: Diffuse mucus plugging throughout all subsegments Left bronchial tree: Left mainstem bronchus: Diffuse erythema and hypervascular mucosa at the proximal takeoff to the left mainstem Left upper lobe: Anatomically within normal limits Lingula: Anatomically within normal limits Left lower lobe: Anatomically within normal limits Findings: Mild mucus plugging throughout all subsegments Bronchial alveolar lavage: Left lower lobe EBL: None Complications: None Follow-up: ASU
--- NOTE | 2018-02-10 14:38 | Hospitalist Progress Note ---
Hospitalist Progress Note Date of Service February 10, 2018. (Lianet Palacio ., PA-C) Subjective Pt evaluation today including: conversation w/ patient, physical exam, chart review, lab review, review of inpatient medication list Patient seen just after bronchoscopy. He complains of feeling lethargic/groggy from sedation but otherwise feeling well. He states that he is still more short of breath than normal, but this continues to improve. He complains of an intermittent productive cough with yellow sputum. He states that he was wheezing prior to the bronchoscopy, but this seems improved now post procedure. The patient denies fevers, chills, sweats, chest pain, palpitations, claudication, nausea, vomiting, abdominal pain, dysuria, hematuria, urinary retention, paralysis, weakness, numbness and tingling. Additional Comments: See HPI for pertinent positives and negatives. All other systems reviewed and negative. (Lianet Palacio ., PA-C) Objective Vital Signs Date Time Temp Pulse Resp B/P (MAP) Pulse Ox O2 Delivery O2 Flow Rate FiO2 02/10/18 14:21 36.4 108 20 121/83 (96) 96 Room Air 02/10/18 14:13 Oxymask 02/10/18 14:06 102 16 95 Nasal Cannula 4.0 02/10/18 13:45 103 14 111/72 93 Nasal Cannula 4 02/10/18 13:40 108 14 100/79 93 Nasal Cannula 4 02/10/18 13:35 106 14 117/98 95 Oxymask 15 02/10/18 13:30 107 16 115/84 93 Oxymask 12 02/10/18 13:25 108 17 123/81 95 Oxymask 6 02/10/18 13:20 108 13 110/85 95 Oxymask 6 02/10/18 13:15 104 14 127/88 96 Oxymask 6 02/10/18 13:10 101 21 105/82 98 Oxymask 6 02/10/18 13:00 103 21 107/83 99 Oxymask 6 02/10/18 11:22 102 18 119/81 94 Room Air 02/10/18 10:42 Room Air 02/10/18 07:05 97 16 97 Room Air 02/10/18 06:41 36.5 98 18 96/66 (76) 93 Room Air 02/10/18 01:49 107 16 96 Room Air 02/10/18 00:01 Room Air 02/09/18 22:41 37.2 110 20 122/75 (91) 95 Room Air 02/09/18 18:55 114 16 95 Room Air 02/09/18 16:00 Room Air (Lianet Palacio ., PA-C) Physical Exam Notes: General appearance: Well-developed, well-nourished, no apparent distress Head: Normocephalic, atraumatic Eyes: Normal inspection, PERRL, EOMI ENT: Normal ENT inspection, hearing grossly normal, pharynx normal Neck: Supple, no JVD, trachea midline Respiratory/Chest: +Decreased breath sounds throughout. Port left chest. Lungs clear to auscultation, no respiratory distress Cardiovascular: Regular rate & rhythm, no gallop, no murmur Abdomen/GI: Normal bowel sounds, non-tender, soft Extremities/Musculoskeletal: Normal inspection, no calf tenderness, no pedal edema Neurological/Psych: +Drowsy post bronch. Normal mood/affect, oriented x 3 Skin: Normal color, warm/dry, no rash (Lianet Palacio ., PA-C) Laboratory Results Last 24 Hours Test 02/09/18 16:44 02/09/18 20:55 02/10/18 05:56 02/10/18 07:51 Bedside Glucose 163 mg/dl 163 mg/dl 141 mg/dl White Blood Count 15.18 K/uL Red Blood Count 4.89 M/uL Hemoglobin 14.8 g/dL Hematocrit 43.9 % Mean Corpuscular Volume 89.8 fL Mean Corpuscular Hemoglobin 30.3 pg Mean Corpuscular Hemoglobin Concent 33.7 g/dl RDW Standard Deviation 54.7 fL RDW Coefficient of Variation 16.6 % Platelet Count 246 K/uL Mean Platelet Volume 9.3 fL Sodium Level 140 mmol/L Potassium Level 3.9 mmol/L Chloride Level 107 mmol/L Carbon Dioxide Level 28 mmol/L Anion Gap 5.0 mmol/L Blood Urea Nitrogen 17 mg/dl Creatinine 0.94 mg/dl Est Creatinine Clear Calc Drug Dose 93.8 ml/min Estimated GFR () 103.9 Estimated GFR (Non- 89.6 BUN/Creatinine Ratio 18.5 Random Glucose 129 mg/dl Calcium Level 8.4 mg/dl Magnesium Level 2.2 mg/dl Test 02/10/18 12:02 Bedside Glucose 127 mg/dl (Lianet Palacio PA-C) Diagnostic Results Bronchoscopy: Procedure: Bronchoscopy, conscious sedation, bronchial lavage left lower lobe Consent: Obtained through the patient placed into the chart Pre-procedural diagnosis: Stridor Post-procedural diagnosis: Thrush Start time: 1310 End time: 1330 Total time: 20minutes Analgesia: 2% liquid lidocaine: Via nebulizer 4% gel lidocaine: Via right naris 2% liquid lidocaine: Via bronchoscopy Sedation: Versed IV: 5mg Fentanyl IV: 125g Procedure: The Etohum video bronchoscope was used for this procedure and passed down through the right naris Right naris/posterior naris/posterior oropharynx: Anatomically within normal limits, there was some thrush appreciated around the epiglottis Glottis: Anatomically within normal limits, there was some thrush appreciated around the epiglottis Vocal cords: Proper abduction and abduction, anatomically within normal limits Subglottis/trachea/Asmita: Anatomically within normal limits, diffuse erythema and hypervascular submucosa in the distal trachea as well as the asmita on the proximal right and left main Right bronchial tree: Right mainstem bronchus: Diffuse erythema hypervascular mucosa proximal portion of the right mainstem Right upper lobe: Anatomically within normal limits Bronchus intermedius: Anatomically within normal limits Right middle lobe: Anatomically within normal limits Right lower lobe: Anatomically within normal limits Findings: Diffuse mucus plugging throughout all subsegments Left bronchial tree: Left mainstem bronchus: Diffuse erythema and hypervascular mucosa at the proximal takeoff to the left mainstem Left upper lobe: Anatomically within normal limits Lingula: Anatomically within normal limits Left lower lobe: Anatomically within normal limits Findings: Mild mucus plugging throughout all subsegments Bronchial alveolar lavage: Left lower lobe EBL: None Complications: None Follow-up: ASU (Lianet Palacio PA-C) Assessment and Plan 57 y/o male with a history of stage IV non-small cell lung cancer (remission 2013), advanced emphysema, h/o PE (April 2016, now off AC), constipation, and GERD who presents to the ED with worsening shortness of breath. Dyspnea secondary to COPD exacerbation vs other--improving - Admit to med/surg. Will change from observation to full admission - D/C Solu-Medrol. Start prednisone 40 mg PO qd tomorrow am - DuoNebs q6h, Mucomyst BID, Mucinex 1200 mg PO BID, Advair BID - Continue pulmonary toilet w/flutter valve and incentive spirometry - Zithromax 500 mg PO qd, day #3 of 3 - Priya 180 mg daily; Nasal spray daily - Consult pulmonology, appreciate recs: Bronchoscopy today - Bronchoscopy shows thrush around epiglottis. Diffuse erythema and hypervascular submucosa around distal trachea, asmita, proximal right and left mainstems. Diffuse mucus plugging right bronchial tree, mild mucus plugging left bronchial tree. - Bronchial washings studies/cultures pending -Random cortisol WNL - CT of chest shows severe emphysema with multiple irregular solid nodules, unchanged from prior. Punctate nodularity at the right upper lobe may relate to respiratory bronchiolitis/smoking related lung injury or additional nodules. Oral Thrush--improving - Continue nystatin PO QID Chronic Constipation--no BM since Thursday - Miralax PRN - Pt will bring his Amitiza Prediabetes--stable -BSG 221 this morning -Rechecked HgbA1c, 6.3 here -Insulin sliding scale -Check BSGs q ac and qhs Anxiety/depression -Continue Celexa 20 mg PO qd GERD -Continue Protonix DVT prophylaxis -Resume Lovenox -SCDs Code Status -Level I, FULL RESUSCITATION STATUS (Lianet Palacio, PA-C) Supervising Note Dr. Becker I performed a history and physical examination on the patient. I reviewed above note and agree with it. I discussed plan with APC and patient. During my face to face encounter with the patient, I answered all of the patient's questions. .will give additional prednisone dose tonight. will slowly taper tomorrow. Hoping for discharge in 24 to 48 h. (Diego Becker M.D.)
[2018-02-10] MEDS: PANTOprazole SOD 40 MG TAB PO SCH (17:43)
[2018-02-10] MEDS: FEXOFENADINE HCL 180 MG TAB PO SCH (17:43)
[2018-02-10] MEDS: AZITHROMYCIN 250 MG TAB PO SCH (17:43)
[2018-02-10] MEDS: CITALOPRAM 20 MG TAB PO SCH (17:43)
[2018-02-11] MEDS: ENOXAPARIN 40 MG/0.4 ML SYR SQ SCH (00:26)
[2018-02-11] MEDS: ALBUT/IPRATROP 3MG/0.5MG NEB 3 ML VIAL NEB SCH ×3 (01:49→14:11)
[2018-02-11 01:50] VITALS: PULSE 102; O2SAT 93
[2018-02-11 06:08] LABS: HEMATOCRIT 44.8 % (42-52); HEMOGLOBIN 14.8 g/dL (14.0-18.0); MEAN CELL VOLUME 90.3 fL (80-100); MEAN CORPUSCULAR HEMOGLOBIN 29.8 pg (25-34); MEAN PLATELET VOLUME 9.2 fL (7.4-10.4); PLATELET COUNT 229 K/uL (130-400); RED CELL DISTRIBUTION WIDTH CV 16.7 % (11.5-14.5); RED CELL DISTRIBUTION WIDTH SD 55.3 fL (36.4-46.3); WHITE BLOOD COUNT 11.88 K/uL (4.8-10.8)
[2018-02-11 06:51] LABS: CREATININE 0.94 mg/dl (0.60-1.40); POTASSIUM 3.9 mmol/L (3.5-5.1)
[2018-02-11] MEDS: ACETYLCYSTEINE 20% INHAL SOLN ***DISPENSED BY RESP. INH SCH (06:59)
[2018-02-11 07:01] VITALS: PULSE 98; O2SAT 96
[2018-02-11] MEDS ORDERED: FLUCONAZOLE 100 MG TAB PO SCH (08:00)
[2018-02-11] MEDS: FLUTICASONE/SALMETEROL (ADVAIR) 500/50 INH 14 PUFF INH SCH (08:10)
[2018-02-11] MEDS: TRIAMCINOLONE ACET NASAL SPRAY 10.8ML BTL NAE SCH (08:10)
[2018-02-11] MEDS: GUAIFENESIN 600 MG TABCR PO SCH (08:11)
[2018-02-11] MEDS: NYSTATIN SUSP 500,000 U/5 ML UDC PO SCH ×2 (08:12→13:02)
[2018-02-11] MEDS: AZITHROMYCIN 250 MG TAB PO SCH (08:44)
[2018-02-11] MEDS: CITALOPRAM 20 MG TAB PO SCH (08:44)
[2018-02-11] MEDS: PANTOprazole SOD 40 MG TAB PO SCH (08:45)
[2018-02-11] MEDS: FEXOFENADINE HCL 180 MG TAB PO SCH (08:45)
[2018-02-11] MEDS: INSULIN ASPART 100 UNITS/ML 3 ML PEN SC SCH ×2 (08:46→13:07)
--- NOTE | 2018-02-11 11:48 | Pulmonology Progress Note ---
Pulmonary Progress Note Date of Service February 11, 2018. Attending Dr. Sheehan Subjective Patient notes he is back to his baseline respiratory status but does continue to have some difficulty clearing secretions from his oropharynx with continued rhinitis: Objective Patient is sitting up in bed and and having conversation with no signs of respiratory insufficiency such as tachypnea or accessory muscle use: He does complain of some difficulty clearing mucus secretions from his throat with associated rhinitis. Vital signs: Stable on room air Respiratory: Mild rhonchi appreciated left greater than right Cardiac: S1-S2 regular rate and rhythm Abdomen: Positive bowel sounds soft nontender Assessment & Plan 57-year-old male admitted with progressive dyspnea on exertion with a history of COPD FEV1 43 % and adenocarcinoma lung stage IV in 2012: 1. Dyspnea: Patient appears to be back to his baseline respiratory status and overall is doing well. He can be discharged based off his pulmonary status at this time and I would continue his steroid taper slowly over 10-14 day window and finish his azithromycin antibiotic treatment. 2. Follow-up: Patient should be follow-up by Dr. Oc bundy his primary bog worker in the next 3-4 weeks. 3. Rhinitis: Patient does have chronic rhinitis which we discussed using saline flushes as well as Nasacort. 4. Thrush: Patient did have signs of thrush on bronchoscopic evaluation especially around his epiglottis. Due to his immuno incompetent state I would finish off 10 day course of fluconazole 100 mg once daily. Sign off: Pulmonary will sign off at this time Data Medications: Current Inpatient Medications Medications (Trade) Dose Ordered Sig/Dae Route Start Time Stop Time Status Last Admin Dose Admin Enoxaparin Sodium (Lovenox Inj) 40 mg Q24H SQ 02/08/18 21:00 03/10/18 13:44 Future hold 02/11/18 00:26 40 MG Acetaminophen (Tylenol Tab) 650 mg Q4H PRN PO 02/08/18 13:45 03/10/18 13:44 Al Hydrox/Mg Hydrox/Simethicone (Maalox Max Susp) 15 ml Q4H PRN PO 02/08/18 13:45 03/10/18 13:44 Magnesium Hydroxide (Milk Of Magnesia Susp) 30 ml Q6H PRN PO 02/08/18 13:45 03/10/18 13:44 Polyethylene (Miralax Powder Packet) 17 gm DAILY PRN PO 02/08/18 13:45 03/10/18 13:44 Ondansetron HCl (Zofran Inj) 4 mg Q6H PRN IV 02/08/18 13:45 03/10/18 13:44 Azithromycin (Zithromax Tab) 500 mg QAM PO 02/08/18 15:00 02/15/18 14:59 02/11/18 08:44 500 MG Albuterol/ Ipratropium (Duoneb) 3 ml Q6R NEB 02/08/18 15:00 03/10/18 14:59 02/11/18 06:59 3 ML Acetylcysteine (Mucomyst 20% Inh Soln) 5 ml BIDR INH 02/08/18 20:00 03/10/18 19:59 02/11/18 06:59 5 ML Citalopram Hydrobromide (celeXA TAB) 20 mg QAM PO 02/09/18 08:00 03/11/18 08:59 02/11/18 08:44 20 MG Fexofenadine HCl (Priya Tab) 180 mg DAILY PO 02/09/18 08:00 03/11/18 08:59 02/11/18 08:45 180 MG Salmeterol Xinafoate/ Fluticasone (Advair Diskus 500/50 Inh) 1 puff BID INH 02/08/18 20:00 03/10/18 20:59 02/11/18 08:10 1 PUFF Albuterol/ Ipratropium (Combivent Respimat Inh) 2 puffs QID PRN INH 02/08/18 13:45 03/10/18 13:44 02/10/18 19:08 2 PUFFS Pantoprazole Sodium (Protonix Tab) 40 mg QAM PO 02/09/18 08:00 03/11/18 08:59 02/11/18 08:45 40 MG Temazepam (Restoril Cap) 30 mg HS PRN PO 02/08/18 13:45 03/10/18 13:44 02/10/18 01:42 30 MG Triamcinolone Acetonide (Nasacort Allergy 24hr) 2 sprays DAILY BOYD 02/09/18 08:00 03/11/18 08:59 02/11/18 08:10 2 SPRAYS Nystatin (Mycostatin Susp) 5 ml QID PO 02/08/18 17:00 02/18/18 16:59 02/11/18 08:12 5 ML Guaifenesin (Mucinex Contr Rel Tab) 1,200 mg Q12 PO 02/08/18 21:00 03/10/18 20:59 02/11/18 08:11 1,200 MG Miscellaneous (Iv Fluids Completed) 1 ea PRN PRN N/A 02/08/18 14:30 02/08/19 14:29 Heparin Sodium (Porcine) (Heparin 100 Unit/ml 5ml Flush) 5 ml PRN PRN IV 02/08/18 19:45 03/10/18 19:44 02/10/18 09:35 5 ML Glucose (Glucose 40% Gel) 15-30 GRAMS 15 GRAMS... UD PRN PO 02/09/18 09:15 03/11/18 09:14 Glucose (Glucose Chew Tab) 4-8 Tablets 4 Tabl... UD PRN PO 02/09/18 09:15 03/11/18 09:14 Dextrose (Dextrose 50% 50ML Syringe) 25-50ML 25ML FOR ... UD PRN IV 02/09/18 09:15 03/11/18 09:14 Glucagon (Glucagon Inj) 1 mg UD PRN SQ 02/09/18 09:15 03/11/18 09:14 Carbohydrates (Carbohydrates For Hypoglycemia) 15-30 GRAMS 15 grams if BSG 54-69... UD PRN PO 02/09/18 09:15 03/11/18 09:14 Insulin Aspart (novoLOG ASPART) SLIDING SCALE G... ACHS SC 02/09/18 11:00 03/11/18 10:59 02/10/18 17:49 8 UNITS Prednisone (PredniSONE TAB) 40 mg DAILY PO 02/11/18 08:00 03/13/18 07:59 02/11/18 08:13 40 MG Fluconazole (Diflucan Tab) 100 mg QAM PO 02/11/18 08:00 02/18/18 07:59 02/11/18 08:11 100 MG Lubiprostone (Amitiza) 8 mcg BID PO 02/11/18 12:00 03/13/18 11:59 Vital Signs: Date Time Temp Pulse Resp B/P (MAP) Pulse Ox O2 Delivery O2 Flow Rate FiO2 02/11/18 08:00 Room Air 02/11/18 07:01 98 16 96 Room Air 02/11/18 01:50 102 16 93 Room Air 02/11/18 00:00 Room Air 02/10/18 23:22 36.5 108 18 108/66 (80) 94 Room Air 02/10/18 19:23 99 16 95 Room Air 02/10/18 16:00 92 Room Air 02/10/18 15:00 36.4 107 20 121/79 (93) 92 Room Air 02/10/18 14:21 36.4 108 20 121/83 (96) 96 Room Air 02/10/18 14:13 Oxymask 02/10/18 14:06 102 16 95 Nasal Cannula 4.0 02/10/18 13:45 103 14 111/72 93 Nasal Cannula 4 02/10/18 13:40 108 14 100/79 93 Nasal Cannula 4 02/10/18 13:35 106 14 117/98 95 Oxymask 15 02/10/18 13:30 107 16 115/84 93 Oxymask 12 02/10/18 13:25 108 17 123/81 95 Oxymask 6 02/10/18 13:20 108 13 110/85 95 Oxymask 6 02/10/18 13:15 104 14 127/88 96 Oxymask 6 02/10/18 13:10 101 21 105/82 98 Oxymask 6 02/10/18 13:00 103 21 107/83 99 Oxymask 6 Laboratory Results: Last 24 Hours Test 02/10/18 12:02 02/10/18 16:29 02/10/18 20:33 02/11/18 05:55 Bedside Glucose 127 mg/dl 121 mg/dl 110 mg/dl White Blood Count 11.88 K/uL Red Blood Count 4.96 M/uL Hemoglobin 14.8 g/dL Hematocrit 44.8 % Mean Corpuscular Volume 90.3 fL Mean Corpuscular Hemoglobin 29.8 pg Mean Corpuscular Hemoglobin Concent 33.0 g/dl RDW Standard Deviation 55.3 fL RDW Coefficient of Variation 16.7 % Platelet Count 229 K/uL Mean Platelet Volume 9.2 fL Sodium Level 141 mmol/L Potassium Level 3.9 mmol/L Chloride Level 109 mmol/L Carbon Dioxide Level 27 mmol/L Anion Gap 5.0 mmol/L Blood Urea Nitrogen 18 mg/dl Creatinine 0.94 mg/dl Est Creatinine Clear Calc Drug Dose 93.8 ml/min Estimated GFR () 103.9 Estimated GFR (Non- 89.6 BUN/Creatinine Ratio 19.4 Random Glucose 114 mg/dl Calcium Level 8.0 mg/dl Magnesium Level 2.4 mg/dl Test 02/11/18 07:41 Bedside Glucose 99 mg/dl
[2018-02-11] MEDS ORDERED: LUBIPROSTONE 8 MCG CAP PO SCH (12:00)
[2018-02-11] MEDS ORDERED: ATRINSX NEB (13:47)
[2018-02-11] MEDS ORDERED: ALBINS NEB (13:47)
[2018-02-11] MEDS ORDERED: PRED10TA PO (13:51)
[2018-02-11] MEDS ORDERED: GFNSR600 PO (13:51)
[2018-02-11] MEDS ORDERED: DFL100 PO (13:51)
[2018-02-11] MEDS ORDERED: AZIT-57 PO (13:51)
--- NOTE | 2018-02-11 14:01 | Discharge Instructions ---
Discharge Instructions Date of Service February 11, 2018. Admission Reason for Admission: Copd With Exacerbation Discharge Discharge Diagnosis / Problem: Chronic obstructive pulmonary disease exacerbation Discharge Goals Goal(s): Decrease discomfort, Improve function, Diagnostic testing, Therapeutic intervention Activity Recommendations Activity Limitations: resume your previous activity . Instructions / Follow-Up Instructions / Follow-Up You were admitted to the hospital with ongoing shortness of breath. You were treated for an acute exacerbation of your chronic obstructive pulmonary disease/ emphysema. You were treated with IV steroids, breathing treatments, and an antibiotic called azithromycin. You were also evaluated by pulmonology, who performed a bronchoscopy for further evaluation. The bronchoscopy confirmed a thrush infection (fungal infection). This is being treated with an antifungal medication. Your breathing is now improved, and you are stable for discharge. Please note the following medication changes below. Medications: *Please take the following prednisone taper: -Take 40 mg daily for 4 days, then -Take 30 mg daily for 4 days, then -Take 20 mg daily for 4 days, then you can resume your chronic 10 mg daily regimen *Please take azithromycin 500 mg. You have one dose remaining in your course, which has been sent to your pharmacy. This dose is due TOMORROW, 02/12. *Please take fluconazole (Diflucan) 100 mg daily. This is an antifungal for the thrush. You started this medication on 02/11 before you were discharged. You will complete a 10 day course and the remaining 9 doses were sent to your pharmacy. Please start this TOMORROW, 02/12. *You may take Mucinex 1200 mg twice a day for the next week. This medicine thins your mucus which may make it easier to clear when you're coughing. *Continue your other home medications as prescribed. Follow up: *You have been scheduled to follow up with your primary care provider and residential advisor. Please seek medical attention if you experience fevers, chills, sweats, dizziness/lightheadedness, loss of consciousness, chest pain, shortness of breath, nausea, vomiting, numbness or tingling. Current Hospital Diet Patient's current hospital diet: Regular Diet Discharge Diet Recommended Diet: Regular Diet Procedures Procedures Performed: BRONCHOSCOPY Pending Studies Studies pending at discharge: yes List of pending studies: Finalized bronchial washing studies/cultures Laboratory Results Hemoglobin A1c Test 02/09/18 05:47 Range/Units Estimated Average Glucose 134 mg/dl Hemoglobin A1c 6.3 H 4.5-5.6 % Medical Emergencies . Who to Call and When: Medical Emergencies: If at any time you feel your situation is an emergency, please call 911 immediately. . Non-Emergent Contact Non-Emergency issues call your: Primary Care Provider, [employer] Call Non-Emergent contact if: you have a fever, you have any medication questions . Past History Medical & Surgical History: (1) COPD with exacerbation . "Provider Documentation" section prepared by Lianet Palacio. .
[2018-02-11 14:12] VITALS: PULSE 102; O2SAT 96
--- NOTE | 2018-02-11 14:13 | Discharge Summary ---
Discharge Summary Date of Service February 11, 2018. Discharge Summary Admission Date: February 09, 2018 at 15:56 Discharge Date: February 11, 2018 Discharge Disposition: Home Principal Diagnosis: COPD exacerbation Problems/Secondary Diagnoses: Thrush, stage IV non-small cell lung cancer (2013), advanced emphysema , h/o PE (April 2016, now off AC), constipation, GERD Immunizations: Have You Had Influenza Vaccine: No History of Tetanus Vaccine?: Unknown History of Pneumococcal: No History of Hepatitis B Vaccine: No Procedures: Bronchoscopy: Procedure: Bronchoscopy, conscious sedation, bronchial lavage left lower lobe Consent: Obtained through the patient placed into the chart Pre-procedural diagnosis: Stridor Post-procedural diagnosis: Thrush Start time: 1310 End time: 1330 Total time: 20minutes Analgesia: 2% liquid lidocaine: Via nebulizer 4% gel lidocaine: Via right naris 2% liquid lidocaine: Via bronchoscopy Sedation: Versed IV: 5mg Fentanyl IV: 125g Procedure: The Olympus video bronchoscope was used for this procedure and passed down through the right naris Right naris/posterior naris/posterior oropharynx: Anatomically within normal limits, there was some thrush appreciated around the epiglottis Glottis: Anatomically within normal limits, there was some thrush appreciated around the epiglottis Vocal cords: Proper abduction and abduction, anatomically within normal limits Subglottis/trachea/Asmita: Anatomically within normal limits, diffuse erythema and hypervascular submucosa in the distal trachea as well as the asmita on the proximal right and left main Right bronchial tree: Right mainstem bronchus: Diffuse erythema hypervascular mucosa proximal portion of the right mainstem Right upper lobe: Anatomically within normal limits Bronchus intermedius: Anatomically within normal limits Right middle lobe: Anatomically within normal limits Right lower lobe: Anatomically within normal limits Findings: Diffuse mucus plugging throughout all subsegments Left bronchial tree: Left mainstem bronchus: Diffuse erythema and hypervascular mucosa at the proximal takeoff to the left mainstem Left upper lobe: Anatomically within normal limits Lingula: Anatomically within normal limits Left lower lobe: Anatomically within normal limits Findings: Mild mucus plugging throughout all subsegments Bronchial alveolar lavage: Left lower lobe EBL: None Complications: None Follow-up: ASU Consultations: Pulmonology Medication Reconciliation New Medications: Azithromycin (Azithromycin) 250 Mg Tab 500 MG PO QAM for 1 Day, #1 TAB Fluconazole (Fluconazole) 100 Mg Tab 100 MG PO QAM for 9 Days, #9 TAB Guaifenesin Ext Rel (Mucinex Ext Rel) 600 Mg Tabcr 1200 MG PO Q12 for 7 Days, #28 TABS Changed Medications: Prednisone (Prednisone) 10 Mg Tab 10 MG PO DIRECTED for 12 Days, #36 TABS 0 Refills (Changed from: 40; start 10/07/17: 6 tabs PO days 1/2, 5 tabs days 3/, 4 tabs days 6, 3 tabs days /, 2 tabs days /.) Take 40 mg daily for 4 days, then 30 mg daily for 4 days, then 20 mg daily for 4 days, then resume 10 mg daily Continued Medications: Albuterol Sulf (Albuterol Sulfate) 2.5 Mg/3 Ml Nebu 1 DOSE NEB QID MIX WITH ATROVENT Citalopram (Citalopram Hydrobromide) 20 Mg Tab 20 MG PO QAM Fexofenadine Hcl (Priya) 180 Mg Tab 180 MG PO DAILY, #30 TAB 5 Refills Fluticasone Prop/Salmeterol (Advair Diskus 500/50 60 Dose) 1 Ea Aerp 1 PUFF INH BID Ipratropium [place] (Atrovent 0.02% Soln) 2.5 Ml Nebu 1 DOSE NEB QID MIX WITH ALBUTEROL Lubiprostone (Amitiza) 8 Mcg Cap 8 MCG PO BID, CAP Pantoprazole (Pantoprazole Sodium) 40 Mg Tab 40 MG PO QAM Temazepam (Restoril) 30 Mg Cap 30 MG PO HS PRN for Sleep, CAP Triamcinolone Acetonide (Nasal (Nasacort Allergy 24Hr) 55 Mcg/Act Spr 2 SPRAYS BOYD DAILY, #1 INHALER 2 Refills Discharge Exam Patient reports feeling well. He states that his breathing is improved. He reports a cough but has not been able to bring anything up today and feels like mucus is getting "stuck" in his chest. He feels that this is causing him to wheeze, but overall he feels improved. The patient denies fevers, chills, sweats, chest pain, palpitations, claudication, shortness of breath, nausea, vomiting, abdominal pain, dysuria, hematuria, urinary retention, paralysis, weakness, numbness and tingling. Constitutional: No fever, No chills, No sweats Eyes: No worsening of vision, No eye pain, No diplopia ENT: No hearing loss, No nasal symptoms, No trouble swallowing Respiratory: +Cough, wheezing. No shortness of breath Cardiovascular: No chest pain, No claudication, No palpitations Abdomen: No pain, No nausea, No vomiting Musculoskeletal: No joint pain, No muscle pain, No swelling Genitourinary - Male: No dysuria, No urinary retention, No hematuria Neurologic: No paralysis, No weakness, No numbness/tingling Integumentary: No rash, No itch, No color change General appearance: Well-developed, well-nourished, no apparent distress Head: Normocephalic, atraumatic Eyes: Normal inspection, PERRL, EOMI ENT: Normal ENT inspection, hearing grossly normal, pharynx normal Neck: Supple, no JVD, trachea midline Respiratory/Chest: +Decreased breath sounds throughout, no wheezing appreciated. Port left chest. Lungs clear to auscultation, no respiratory distress Cardiovascular: Regular rate & rhythm, no gallop, no murmur Abdomen/GI: Normal bowel sounds, non-tender, soft Extremities/Musculoskeletal: Normal inspection, no calf tenderness, no pedal edema Neurological/Psych: Alert, normal mood/affect, oriented x 3 Skin: Normal color, warm/dry, no rash Hospital Course 57 y/o male with a history of stage IV non-small cell lung cancer (remission 2013), advanced emphysema, h/o PE (April 2016, now off AC), constipation, and GERD who presents to the ED with worsening shortness of breath. Dyspnea secondary to COPD exacerbation vs other--improving - Admit to med/surg. Will change from observation to full admission - Discharge with following prednisone taper: 40 mg PO qd x 4 days, 30 mg qd x 4 days, 20 mg qd x 4 days, then can resume chronic 10 mg PO qd - DuoNebs q6h, Mucomyst BID, Mucinex 1200 mg PO BID, Advair BID. Provided script for Mucinex at discharge - Continue pulmonary toilet w/flutter valve and incentive spirometry - Zithromax 500 mg PO qd, day #4. Will continue one more day as outpatient for total 5 day course - Priya 180 mg daily; Nasal spray daily - Consult pulmonology, appreciate recs: Complete azithromycin course and prednisone taper. Recommend total 10 day course of Diflucan. - Bronchoscopy shows thrush around epiglottis. Diffuse erythema and hypervascular submucosa around distal trachea, asmita, proximal right and left mainstems. Diffuse mucus plugging right bronchial tree, mild mucus plugging left bronchial tree. - Bronchial washing fungal smear negative, Gram stain shows no organisms, other studies/cultures pending - Random cortisol WNL - CT of chest shows severe emphysema with multiple irregular solid nodules, unchanged from prior. Punctate nodularity at the right upper lobe may relate to respiratory bronchiolitis/smoking related lung injury or additional nodules. Oral Thrush--improving - D/C nystatin, replace with Diflucan 100 mg PO qd x 10 days Chronic Constipation--moved his bowels today - Miralax PRN - Pt will bring his Amitiza Prediabetes--stable -BSG 221 this morning -Rechecked HgbA1c, 6.3 here -Insulin sliding scale -Check BSGs q ac and qhs Anxiety/depression -Continue Celexa 20 mg PO qd GERD -Continue Protonix DVT prophylaxis -Resume Lovenox -SCDs Code Status -Level I, FULL RESUSCITATION STATUS Supervising Note Dr. Becker I performed a history and physical examination on the patient. I reviewed above note and agree with it. I discussed plan with APC and patient. During my face to face encounter with the patient, I answered all of the patient's questions. will taper steroids. Will complete 5 day course of azithromycin and continue fluconazole for 9 more days. Patient will f/u with pulmonary as an outpatient. Total Time Spent: Greater than 30 minutes This includes examination of the patient, discharge planning, medication reconciliation, and communication with other providers. Discharge Instructions Please refer to the electronic Patient Visit Report (Discharge Instructions) for additional information. Follow-Up Pulmonology PCP Additional Copies To Brandy Ward PA-C; Latoya Champion P.A.
[2018-02-11 14:21] VITALS: BP 108/66; PULSE 102; TEMP 36.5; O2SAT 96
== END 2018-02-11 15:08 | disposition home or self-care (01) | DRG 167 ==
LOC: C.EDB 10:18 → C.4E 13:53 → ENRESERV 14:16 → OBSVTOIN 02-09 15:56
PROVIDERS: ADMIT Internal Medicine; ATTEND Internal Medicine Sports Medicine
PROC: 0B9J8ZX Drainage of Left Lower Lung Lobe, Via Natural or Artificial Opening Endoscopic, Diagnostic (ICD-10-PCS; principal; 2018-02-10 11:17)
DX: J44.1 Chronic obstructive pulmonary disease with (acute) exacerbation (principal); B37.0 Candidal stomatitis; C34.82 Malignant neoplasm of overlapping sites of left bronchus and lung; E27.40 Unspecified adrenocortical insufficiency; I10 Essential (primary) hypertension; Z86.711 Personal history of pulmonary embolism; F17.200 Nicotine dependence, unspecified, uncomplicated; K21.9 Gastro-esophageal reflux disease without esophagitis; R73.03 Prediabetes; Z80.1 Family history of malignant neoplasm of trachea, bronchus and lung; Z83.3 Family history of diabetes mellitus

== ENCOUNTER → 2018-05-29 | Outpatient (CLI) | payer OTHER ==
[~2018-05-29] MED LIST changes: +ALBINS NEB; -ALBINS/ NEB; +ATRINSX NEB; +AZIT-57 PO; +DFL100 PO; -DXY100 PO; +FEXO1TAB49 PO; +GFNSR600 PO; +VGR50 PO; +XPNINS125 INJ
--- NOTE | 2018-05-29 11:51 | DIAGNOSTIC IMAGING REPORT ---
CHEST 2 VIEWS ROUTINE CLINICAL HISTORY: BLOODY SPUTUM COMPARISON STUDY: February 08, 2018 FINDINGS: The heart is normal in size. The patient is hyperinflated. There is right upper lung zone interstitial scarring. There is pulmonary emphysema. There is stable tenting of the left hemidiaphragm. There is no acute parenchymal consolidation.[ IMPRESSION: 1. Pulmonary emphysema with areas of stable interstitial scarring 2. No acute parenchymal consolidation 3. No evidence of failure Electronically signed by: Jacoby Walden M.D. 05/29/2018 11:50 AM Dictated Date/Time: 05/29/2018 11:48 AM
[2018-05-29 13:02] LABS: BASO % 0.6 %; BASO ABS # 0.05 K/uL (0-0.2); EOS ABS # 0.08 K/uL (0-0.5); HEMATOCRIT 50.9 % (42-52); IG# 0.05 K/uL (0.00-0.02); LYMPH % 9.4 %; LYMPH ABS # 0.78 K/uL (1.2-3.4); MEAN CELL VOLUME 90.9 fL (80-100); MEAN CORPUSCULAR HEMOGLOBIN 30.4 pg (25-34); MEAN CORPUSCULAR HGB CONC 33.4 g/dl (32-36); MEAN PLATELET VOLUME 9.4 fL (7.4-10.4); MONO % 7.1 %; MONO ABS # 0.59 K/uL (0.11-0.59); NEUT % 81.3 %; NEUT ABS # 6.76 K/uL (1.4-6.5); PLATELET COUNT 250 K/uL (130-400); RED CELL DISTRIBUTION WIDTH CV 16.1 % (11.5-14.5); RED CELL DISTRIBUTION WIDTH SD 53.8 fL (36.4-46.3); WHITE BLOOD COUNT 8.31 K/uL (4.8-10.8)
[2018-05-29 13:14] LABS: BLOOD UREA NITROGEN 14 mg/dl (7-18); CALCIUM 8.6 mg/dl (8.5-10.1); CARBON DIOXIDE 26 mmol/L (21-32); CREATININE 1.17 mg/dl (0.60-1.40); GLUCOSE 112 mg/dl (70-99); POTASSIUM 3.8 mmol/L (3.5-5.1); SODIUM 141 mmol/L (136-145)
[2018-06-01 07:22] LABS: QUANTIF MITOGEN-NIL 9.03 IU/ML; QUANTIFERON NEGATIVE (NEGATIVE); QUANTIFERON NIL 0.02 IU/ML
== END | disposition home or self-care (01) ==
LOC: C.RAD1850 11:18
PROVIDERS: ATTEND Nurse Practitioner
DX: R04.2 Hemoptysis (principal); J43.9 Emphysema, unspecified

== ENCOUNTER 2018-10-04 15:38 | Inpatient (IN) ==
[2018-10-04] MEDS ORDERED: ONDANSETRON INJ 2 MG/ML 2 ML VIAL ONE (15:59)
[2018-10-04] MEDS ORDERED: KETOROLAC 30 MG/ML VIAL IV STA (16:13)
[2018-10-04] MEDS ORDERED: methylPREDNISolone 125 MG/2 ML VIAL IV STA (16:13)
[2018-10-04] MEDS ORDERED: ALBUT/IPRATROP 3MG/0.5MG NEB 3 ML VIAL NEB ONE (16:13)
[2018-10-04] MEDS ORDERED: SODIUM CHLORIDE 0.9% 500 ML IV SCH (16:15)
[2018-10-04] MEDS ORDERED: ONDANSETRON INJ 2 MG/ML 2 ML VIAL IV STA (16:15)
[2018-10-04] MEDS: HYDROmorphone INJ 1 MG/ML SYRINGE IV PRN ×3 (16:31→18:35)
[2018-10-04 16:57] LABS: Hemoglobin 17.5 g/dL (14.0-18.0); Red Blood Count 6.05 M/uL (4.7-6.1); White Blood Count 10.83 K/uL (4.8-10.8)
[2018-10-04 16:58] LABS: Basophils # (auto) 0.02 K/uL (0-0.2); Basophils % (auto) 0.2 %; Eosinophils # (auto) 0.11 K/uL (0-0.5); Hematocrit (blood only) 53.4 % (42-52); Immature Granulocytes # (auto) 0.06 K/uL (0.00-0.02); Immature Granulocytes % (auto) 0.6 %; Lymphocytes # (auto) 0.83 K/uL (1.2-3.4); Lymphocytes % (auto) 7.7 %; Mean Corpuscular Hgb Conc 32.8 g/dL (32-36); Mean Corpuscular Volume 88.3 fL (80-100); Mean Platelet Volume 10.1 fL (7.4-10.4); Monocytes # (auto) 0.61 K/uL (0.11-0.59); Monocytes % (auto) 5.6 %; Neutrophils % (auto) 84.9 %; Platelet Count 223 K/uL (130-400); RDW Coefficient of Variation 16.7 % (11.5-14.5); RDW Standard Deviation 53.6 fL (36.4-46.3)
[2018-10-04 17:00] LABS: iSTAT Ionized Calcium 1.03 mmol/l (1.12-1.32)
[2018-10-04 17:17] LABS: Alanine Aminotransferase 37 U/L (12-78); Albumin Level 3.5 gm/dl (3.4-5.0); Aspartate Aminotransferase 15 U/L (15-37); BUN Creatinine Ratio 15.4 (10-20); Blood Urea Nitrogen 17 mg/dl (7-18); Calcium 8.3 mg/dl (8.5-10.1); Carbon Dioxide 24 mmol/L (21-32); Chloride 111 mmol/L (98-107); Creatinine Clr Calc Pharmacy 77.2 ml/min; Est GFR (African American) 84.4; Est GFR (Non-African American) 72.8; Glucose 124 mg/dl (70-99); Sodium 143 mmol/L (136-145)
[2018-10-04 17:26] LABS: Albumin Globulin Ratio 1.1 (0.9-2); Alkaline Phosphatase 86 U/L (45-117); Creatine Kinase 142 U/L (39-308); Creatine Kinase MB 4.4 ng/ml (0.5-3.6); Globulin 3.3 gm/dl (2.5-4.0); Total Protein 6.8 gm/dl (6.4-8.2); Troponin I < 0.015 ng/ml (0-0.045)
--- NOTE | 2018-10-04 17:51 | XRay Report ---
XR chest 1V portable CLINICAL HISTORY: 58 years-old Male presenting with Chest Pain. TECHNIQUE: Portable upright AP view of the chest was obtained. COMPARISON: CTA from 09/20/2018 and chest x-ray from 02/08/2018. FINDINGS: Left subclavian Mediport terminates in the mid SVC. Cardiomediastinal silhouette normal. Heterogeneit y of lung parenchyma with relative radiolucency of the upper lobes as on prior exam. Ill-defined opac ities in the right upper and mid lung as well as the left lung base as on prior exam. No new focal op acity. No large effusion or pneumothorax. Degenerative changes of the thoracic spine. IMPRESSION: 1. Findings suggest emphysema. No focal infiltrate to suggest pneumonia. 2. Chronic ill-defined opacities in the right upper and mid lung and left lung base correlate may co rrelate with the presence of underlying pulmonary nodules as evident on recent CTA. Electronically signed by: Angel Haines M.D. 10/04/2018 5:49 PM
[2018-10-04] MEDS ORDERED: OPTIRAY 320 125ml IV PRN (18:10)
[2018-10-04] MEDS ORDERED: METOCLOPRAMIDE HCL INJ 5 MG/ML 2 ML VIAL IV STA (18:27)
--- NOTE | 2018-10-04 18:29 | CT Scan Report ---
CT abd pelvis IV con only CLINICAL HISTORY: 58 years-old Male presenting with Pt c/o diffuse abd pain. TECHNIQUE: Multidetector CT of the abdomen and pelvis was performed after the administration of intra venous contrast. IV contrast: 119 mL of Optiray 320. A dose lowering technique was used consistent wi th the principles of ALARA (as low as reasonably achievable). COMPARISON: 08/05/2018. CT DOSE (mGy.cm): The estimated cumulative dose is 586.86 mGycm. 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 Lung bases: Advanced emphysema. Respiratory artifact grades vibration of the lung bases. Normal heart size. No pericardial or pleural effusion. Liver: Normal morphology. Density suggestive of hepatic steatosis. No focal lesion. Patent hepatic va sculature. Biliary: Mild biliary ductal prominence likely a reservoir effect in the post cholecystectomy state. Gallbladder surgically absent. Pancreas: Normal. Spleen: Normal. Adrenal glands: Normal. Kidneys and ureters: Nonobstructing punctate calculus in the interpolar region of the right kidney ve rsus. No hydronephrosis. Redemonstration of the 1 cm lower pole indeterminate right renal lesion. Lef t kidney normal. Ureters nondistended. Bladder: Normal. Pelvic organs: Prostate and seminal vesicles normal. Bowel: Few diverticula in the sigmoid colon.: Otherwise normal. The appendix is normal. No bowel obst ruction. The stomach is mildly distended with fluid. Peritoneal cavity: No free fluid or intraperitoneal gas. Lymph nodes: No enlarged lymph nodes in the abdomen or pelvis. Vasculature: Atherosclerosis of the normal caliber abdominal aorta. IVC patent. Abdominal wall: Small fat-containing umbilical hernia. Musculoskeletal: Several old rib fractures noted. Heterogeneous sclerosis of the femoral heads with m ild deformity consistent with osteonecrosis, unchanged. IMPRESSION: 1. No acute intra-abdominal pathology. 2. Nonobstructing punctate right renal calculus. 3. Unchanged indeterminate right renal lesion at the right lower pole. This could be followed with n onurgent ultrasound. 4. 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 5. Emphysema. Electronically signed by: Angel Haines M.D. 10/04/2018 6:28 PM
[2018-10-04] MEDS ORDERED: ONDANSETRON HOME PACK 4MG OD TAB PO ONE (18:57)
[2018-10-04] MEDS ORDERED: PERCOCET 5/325MG HOMEPACK PO ONE (18:57)
--- NOTE | 2018-10-04 21:55 | History & Physical Report ---
Date of Service October 04, 2018 Assessment & Plan (1) Nausea vomiting and diarrhea: 50-year-old male was admitted on 04 October 2018 for nausea, vomiting, diarrhea and hypoxia. Nausea, vomiting, diarrhea: Acute onset earlier on day of admission. Perhaps an acute infectious illness due to family symptoms with the same. No known fevers. Mild tachycardia likely due to dehydration. CT abdomen pelvis was nonacute. Non-peritoneal abdominal exam. Treated in the ED with Reglan, Zofran , Dilaudid, Toradol, and IV fluids. - We will continue IV fluids. - Zofran for nausea as needed. Hypoxia, COPD exacerbation: A bit of worsening of baseline SOB in past 24 hours No known fevers. SpO2 as low as 85% on room air. Improved to 94% on 3 L nasal cannula. Known severe COPD. pCXR not suggestive of PNA but notable for emphysema. - At home is on Advair, Combivent, Incruse Ellipta, Nasacort, levalbuterol, and daily prednisone 10 mg. Held those as inpatient. - Treated in ED with DuoNeb and Solu-Medrol. - On admit, will continue on methylprednisolone 40 mg q6h, duo nebs q6h scheduled, albuterol prn. Stage IV lung cancer in remission: Says underwent chemo/radiation in 2011, no further direct treatment since. Says Dr. Langley is [facility]. Ongoing medical issues: - Lumbar back pain: At home is on Percocet (as well as Colace, senna, and amitiza). Holding bowel meds. - Vitamin B12 deficiency: At home is on vitamin B12. Continued. - Neuropathy: At home is on gabapentin. Continued. - GERD: At home is on pantoprazole. Continued. - Avascular necrosis of both hips. - Insomnia: At home is on restoril. Continued. - Depression: At home is on citalopram. Continued. Code status: Full code. Diet: Full liquid, advance as tolerated. DVT prophy: Lovenox. PT/OT: Deferred. Disbo: Admit for medsurg. (2) Hypoxia: (3) Acute exacerbation of chronic obstructive pulmonary disease (COPD): (4) History of lung cancer: (5) Lumbar back pain: (6) Vitamin B12 deficiency: (7) Neuropathy: (8) GERD (gastroesophageal reflux disease): (9) Avascular necrosis of bones of both hips: (10) Insomnia: (11) Depression: History of Present Illness Primary Care Provider: Isak Zuniga III, MD 58-year-old male presents with acute nausea, vomiting, diarrhea beginning earlier on day of admission. - He notes vomiting x 10+ episodes and multiple episodes of watery, non-bloody diarrhea. He says that his daughter and grandkids were visiting over the past couple of days and have had the exact same symptoms. He also says that he gets episodes of N/V/D at least a couple of times a year and generally they self resolved. However this time he says he wanted to get ahead of it due to being New Years [place]. He says he has abdominal cramping that occurs over the past few years, perhaps a little bit worse in the past day. He denies any fevers but says he had sweats. No other acute complaints. - On review of systems, patient says he has a history of COPD and that he has baseline shortness of breath. Says perhaps this is a little worse over the past day or so. Denies any chest pain. Is not on any home oxygen. Allergies Allergy/AdvReac Type Severity Reaction Status Date / Time No Known Allergies Allergy Verified 10/04/18 16:25 Home Medications Home Medications Medication Instructions Recorded Confirmed Type citalopram 20 mg PO QAM 08/05/18 10/04/18 History fluticasone-salmeterol [Advair 1 inh INHALATION BID 08/05/18 10/04/18 History Diskus] ipratropium-albuterol 3 ml INHALATION QID 08/05/18 10/04/18 History ipratropium-albuterol [Combivent 1 puff INHALATION QID 08/05/18 10/04/18 History Respimat] levalbuterol HCl 3 ml INHALATION Q4H PRN 08/05/18 10/04/18 History lubiprostone [Amitiza] 8 mcg PO BID 08/05/18 10/04/18 History pantoprazole 40 mg PO QAM 08/05/18 10/04/18 History temazepam 30 mg PO HS PRN 08/05/18 10/04/18 History triamcinolone acetonide [Nasacort] 2 spray INTRANASAL DAILY 08/05/18 10/04/18 History umeclidinium [Incruse Ellipta] 1 inh INHALATION DAILY 08/05/18 10/04/18 History cyanocobalamin (vitamin B-12) 1,000 mcg PO DAILY #90 cap 08/08/18 10/04/18 Rx prednisone 10 mg PO DAILY #60 tab 08/08/18 10/04/18 Rx docusate sodium [Colace] 100 mg PO BID #60 cap 10/04/18 Rx gabapentin 300 mg PO HS 10/04/18 10/04/18 History ondansetron HCl [Zofran] 4 mg PO DAILY #6 tab 10/04/18 Rx oxycodone-acetaminophen [Percocet] 1 tab PO Q6H #14 tab 10/04/18 Rx sennosides [Senokot] 8.6 mg PO HS #30 tab 10/04/18 Rx Past Med/Surg History Social History marital status: single marital status details: but has 1 daughter Current Living Situation: Alone current occupational status: disabled current occupation: previously worked at [employer] Other Information That Helps Us Care for You: No Feels Safe at Home: Yes Safety Concerns: Feels Safe At This Time Smoking Status: Current some day smoker Tobacco Type: cigarettes Second Hand Exposure: No Hx Alcohol Use: No Hx Substance Use: No Beliefs That Will Affect Care: None Preferred Language: Slovak Communication Ability: Effective Medical Office Professional Instructor Required: No Review of Systems Constitutional: Denies fevers, chills, focal weakness Eyes: Denies any visual loss or diplopia ENT: Denies any ear/nose/throat pain or difficulty speaking or swallowing Respiratory: Denies any hemoptysis Cardiovascular: Denies any chest pain or feeling of edema Gastrointestinal: See HPI. Musculoskeletal: Denies any acute extremity pains, myalgias, or focal weakness Skin: Denies any known acute rashes or lesions Neuro: Denies any headache, acute focal weakness or numbness, or difficulties with speech or swallow. Psych: Denies any recent depression or anxiety Physical Exam 2 Vital Signs (Past 24 Hours): Last Vital Signs Temp 36.3 C L 10/04/18 15:41 Pulse 112 H 10/04/18 21:50 Resp 18 10/04/18 21:50 BP 108/82 10/04/18 21:50 Pulse Ox 95 10/04/18 21:50 Physical Exam: GENERAL: Awake, alert, well-appearing, occasional cough, in no acute distress HENT: Normocephalic, atraumatic. Oropharynx unremarkable. EYES: Normal conjunctiva. Sclera non-icteric. NECK: Inspection normal. Non-tender. Supple and full ROM. No nuchal rigidity. CARDIAC: +S1S2 regular tachycardia, no murmurs. RESPIRATORY: Decreased breath sounds with mild expiratory wheezing throughout. Normal respiratory effort. Nasal cannula oxygen in place. GI: +BS, soft, non-distended. Very mild diffuse tenderness to palpation, no tenderness to percussion, no rebound or guarding. EXTREMITIES: No pedal edema or calf tenderness. Moving all extremities naturally and easily. Contusions to the left arm. NEURO: No gross neuro deficits. Lines: Left upper chest Mediport accessed. Results & Data Laboratory Results 10/04/18 10/04/18 10/04/18 Range/Units 16:44 16:35 16:35 WBC 10.83 H (4.8-10.8) K/uL RBC 6.05 (4.7-6.1) M/uL Hgb 17.5 (14.0-18.0) g/dL POC Hgb 18.0 (14.0-18.0) g/dl Hct 53.4 H (42-52) % POC Hct 53 H (42-52) % MCV 88.3 (80-100) fL MCH 28.9 (25-34) pg MCHC 32.8 (32-36) g/dL RDW Std Deviation 53.6 H (36.4-46.3) fL RDW Coeff of Estela 16.7 H (11.5-14.5) % Plt Count 223 (130-400) K/uL MPV 10.1 (7.4-10.4) fL Immature Gran % (Auto) 0.6 % Neut % (Auto) 84.9 % Lymph % (Auto) 7.7 % Guthrie % (Auto) 5.6 % Eos % (Auto) 1.0 % Baso % (Auto) 0.2 % Immature Gran # (Auto) 0.06 H (0.00-0.02) K/uL Neut # (Auto) 9.20 H (1.4-6.5) K/uL Lymph # (Auto) 0.83 L (1.2-3.4) K/uL Guthrie # (Auto) 0.61 H (0.11-0.59) K/uL Eos # (Auto) 0.11 (0-0.5) K/uL Baso # (Auto) 0.02 (0-0.2) K/uL POC Sodium 146 H (135-144) mEq/L Sodium 143 (136-145) mmol/L POC Potassium 3.8 (3.3-5.0) mEq/L Potassium 4.0 (3.5-5.1) mmol/L POC Chloride 108 (101-112) mEq/L Chloride 111 H (98-107) mmol/L Carbon Dioxide 24 (21-32) mmol/L POC Total CO2 22 L (24-31) mEq/l Anion Gap 8.0 (3-11) POC Anion Gap 20.0 (16-25) mmol/L POC BUN 18 (7-18) mg/dl BUN 17 (7-18) mg/dl Creatinine 1.11 (0.6-1.4) mg/dl POC Creatinine 1.0 (0.6-1.3) mg/dl Est Cr Clr Drug Dosing 77.2 ml/min Est GFR ( Amer) 84.4 Est GFR (Non-Af Amer) 72.8 BUN/Creatinine Ratio 15.4 (10-20) Glucose 124 H (70-99) mg/dl POC Glucose (other) 125 H (70-99) mg/dl Calcium 8.3 L (8.5-10.1) mg/dl POC Ioniz Calcium Alona 1.03 L (1.12-1.32) mmol/l Total Bilirubin 1.0 (0.2-1) mg/dl AST 15 (15-37) U/L ALT 37 (12-78) U/L Alkaline Phosphatase 86 (45-117) U/L Total Creatine Kinase 142 (39-308) U/L CK-MB (CK-2) 4.4 H (0.5-3.6) ng/ml CK/CKMB % Calc 3.1 H (0-3.0) Troponin I < 0.015 (0-0.045) ng/ml Total Protein 6.8 (6.4-8.2) gm/dl Albumin 3.5 (3.4-5.0) gm/dl Globulin 3.3 (2.5-4.0) gm/dl Albumin/Globulin Ratio 1.1 (0.9-2) Lipase 105 (73-393) U/L Specimen Hemolysis Diagnostic Findings XR chest 1V portable IMPRESSION: 1. Findings suggest emphysema. No focal infiltrate to suggest pneumonia. 2. Chronic ill-defined opacities in the right upper and mid lung and left lung base correlate may correlate with the presence of underlying pulmonary nodules as evident on recent CTA. CT abd pelvis IV con only IMPRESSION: 1. No acute intra-abdominal pathology. 2. Nonobstructing punctate right renal calculus. 3. Unchanged indeterminate right renal lesion at the right lower pole. This could be followed with nonurgent ultrasound. 4. 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 5. Emphysema. Code Status & VTE Plan Code Status Full code VTE Prophylaxis Plan VTE Prophylaxis will be ordered: Yes Supervising Physician Co-Signing Physician Notes Pt seen and examined following resident MD Kailee Piemntel. Orders and plan of admission formulated with resident. 58 y/o M Hx HTN, COPD, recurrent episodes of N/V/D. He presented primarily for intractable vomiting, however, it was noted that his oxygen saturation was low. When question regarding SOB, he stated that he was slightly more SOB than usual. He did not report a cough or fever. Some wheezing was reoprted on intial exam. He was admitted as he continued to require supplemental 02 to maintain an adequate sat. OE AAO x 3 S1,2 R Poor BL air movement NT, ND No CCE P: 1) N/V - appears to have improved - IVF and antiemetics provided - can introduce a soft diet AM if tolerated 2) Hypoxia - this may be chronic - we will treat for COPD exacerbation and assess 02 requirements AM - it may be that he will need home 02 for a period 3) HTN - previously in record - not currently treated Resident Activity Tracking Resident Involvement: Resident Care Provided Care Provided: Adult Hospital Medicine
[2018-10-04] MEDS ORDERED: ACETAMINOPHEN 325 MG TAB PO PRN (22:37)
[2018-10-04] MEDS ORDERED: ALBUTEROL 0.083% NEBU SOLN 3 ML VIAL NEB PRN (22:37)
[2018-10-04] MEDS ORDERED: ALBUT/IPRATROP 3MG/0.5MG NEB 3 ML VIAL NEB PRN (22:49)
[2018-10-04] MEDS: LACTATED RINGER'S 1,000 ML IV SCH (22:50)
[2018-10-04] MEDS: OXYCODONE/ACETAMINOPHEN 5mg/325mg TAB PO PRN (22:51)
[2018-10-04] MEDS: ONDANSETRON INJ 2 MG/ML 2 ML VIAL IV PRN (22:51)
[2018-10-05] MEDS: methylPREDNISolone 40 MG in SYRINGE 0 ML IV SCH ×5 (02:04→17:38)
[2018-10-05] MEDS: ENOXAPARIN INJ 40 MG/0.4 ML SYR SQ SCH ×2 (02:04→22:06)
[2018-10-05 06:03] LABS: Hematocrit (blood only) 48.4 % (42-52); Hemoglobin 15.3 g/dL (14.0-18.0); Immature Granulocytes # (auto) 0.04 K/uL (0.00-0.02); Immature Granulocytes % (auto) 0.4 %; Lymphocytes # (auto) 0.29 K/uL (1.2-3.4); Lymphocytes % (auto) 3.2 %; Mean Corpuscular Hgb Conc 31.6 g/dL (32-36); Mean Corpuscular Volume 89.5 fL (80-100); Mean Platelet Volume 9.5 fL (7.4-10.4); Monocytes # (auto) 0.12 K/uL (0.11-0.59); Monocytes % (auto) 1.3 %; Neutrophils # (auto) 8.69 K/uL (1.4-6.5); Neutrophils % (auto) 95.1 %; Platelet Count 229 K/uL (130-400); RDW Standard Deviation 55.4 fL (36.4-46.3); Red Blood Count 5.41 M/uL (4.7-6.1); White Blood Count 9.14 K/uL (4.8-10.8)
[2018-10-05 06:36] LABS: BUN Creatinine Ratio 15.9 (10-20); Calcium 7.8 mg/dl (8.5-10.1); Creatinine Clr Calc Pharmacy 75.6 ml/min; Potassium 4.2 mmol/L (3.5-5.1)
[2018-10-05] MEDS: OXYCODONE/ACETAMINOPHEN 5mg/325mg TAB PO PRN ×2 (06:44→13:55)
[2018-10-05] MEDS: ONDANSETRON INJ 2 MG/ML 2 ML VIAL IV PRN ×3 (06:44→16:46)
[2018-10-05] MEDS: ALBUT/IPRATROP 3MG/0.5MG NEB 3 ML VIAL NEB SCH ×4 (07:04→20:04)
[2018-10-05] MEDS: LACTATED RINGER'S 1,000 ML IV SCH ×3 (08:01→20:31)
[2018-10-05] MEDS: CITALOPRAM 20 MG TAB PO SCH (08:07)
[2018-10-05] MEDS: CYANOCOBALAMIN 500 MCG TABLET (VITAMIN B-12) PO SCH (08:07)
[2018-10-05] MEDS: PANTOprazole 40 MG TAB PO SCH (08:07)
[2018-10-05] MEDS: LUBIPROSTONE 8 MCG CAP PO SCH ×2 (08:07→20:30)
[2018-10-05] MEDS: TRIAMCINOLONE ACET NASAL SPRAY 10.8ML BTL NAE SCH (08:09)
--- NOTE | 2018-10-05 09:46 | Family Medicine Progress Note ---
Date of Service October 05, 2018 Assessment & Plan (1) Nausea vomiting and diarrhea: 50-year-old male was admitted on 04 October 2018 for nausea, vomiting, diarrhea and hypoxia. Nausea, vomiting, diarrhea: Acute onset x 1 day prior to admission. Likely acute viral gastroenteritis given sick family contacts with similar symptoms ( daughter and her children. Afebrile Mild tachycardia likely due to dehydration. CT abdomen pelvis with no acute changes. Non-peritoneal abdominal exam. - rapid flu ordered - Continue IV fluids 125mls LR - Given bolus of 500ml LR as well for concern of tachycardia 2/2 dehydration - Zofran for nausea as needed - Pain control: On percocet 1 tab Q4H PRN for chronic back pain hx and tylenol prn Hypoxia, COPD exacerbation: Has has baseline sob due to severe COPD but reports worsening sob in the setting of recent viral illness. No chronic O2 dependence. Afebrile. SpO2 as low as 85% on room air. Sating well on 2 L nasal cannula this AM. CXR notable for emphysema. - At home is on Advair, Combivent, Incruse Ellipta, Nasacort, levalbuterol, and daily prednisone 10 mg. - continued advair, incruse ellipta and nasacort only others held -On methylprednisolone 40 mg q6h, duo nebs q6h scheduled, albuterol prn - wean methylpred as pt continues to improve 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 Says Dr. Langley is [facility] about every 6 months. Lumbar back pain: At home on Percocet continued Vitamin B12 deficiency: At home on vitamin B12. Continued. Neuropathy: At home is on gabapentin. Continued. GERD: At home is on pantoprazole. Continued. Avascular necrosis of both hips. Insomnia: At home is on restoril. Continued. Depression: At home is on citalopram. Continued. Code status: Full code. Diet: Full liquid, advance as tolerated. DVT prophy: Lovenox. PT/OT: Deferred. Disbo: Home pending clinical improvement (2) Hypoxia: (3) Acute exacerbation of chronic obstructive pulmonary disease (COPD): (4) History of lung cancer: (5) Lumbar back pain: (6) Vitamin B12 deficiency: (7) Neuropathy: (8) GERD (gastroesophageal reflux disease): (9) Avascular necrosis of bones of both hips: (10) Insomnia: (11) Depression: Supervising Physician Co-Signing Physician Notes Attending attestation Pt seen and examined in concert with Dr. Moreno. In agreement with the documented findings as noted in the resident documentation with any exceptions or additions as noted here. Pt reports persistent nausea and dry heaving mildly improved since time of admission. Per patient, respiratory status is at baseline with minimal change in frequency, severity or productivity of cough. Repeated requests for dilaudid for cramping, chronic right flank pain. On examination, S1/S2 nl RRR no MCG. Tachypnea on observation but not with speech or at rest. Diffusely decreased breathsounds without appreciable rhonchi/ rales. Abd mildly epigastric TTP, BS +ve Intractable N/V, diarrhea - likely viral considering multiple contacts w/ similar sx - rapid flu today, continue IV hydration and antiemetics. Severe COPD with ?exacerbation in the setting of stage 4 lung cancer, chemotherapy and radiation in 2011 - continue solumedrol with intent to rapidly taper as patient improves. continue home regimen Chronic lower back pain - can convert to small amt of morphine IV if needed Else per resident documentation Subjective This AM pt reports persistent sob and productive cough. Also having dry heaves and abdominal cramos but no vomiting or diarrhea since admission. Remains on 2L NC. Denies any f/c, cp, headache/dizziness, dysuria Physical Exam 2 Vital Signs (Past 24 Hours): Last Vital Signs Temp 36.5 C 10/05/18 08:10 Pulse 106 H 10/05/18 08:10 Resp 22 10/05/18 08:10 BP 102/69 10/05/18 08:10 Pulse Ox 92 10/05/18 08:10 Physical Exam: General: resting in bed and noted to be coughing but not having any respiratory distress and able to speak in full sentences Neuro: alert and oriented CV: RRR,no murmurs, rubs or gallops Pulm: Milldy diminished breath sounds, CTAB, no wheezing or crackles appreciated Abdomen: +BS, TTP of R upper, mid and lower quadrants of abdomen, no rebound tenderness, non-distended LE: no LE pitting edema or calf tenderness Results & Data Laboratory Results Abnormal lab results 10/04/18 10/04/1810/04/18 Range/Units 16:35 16:35 16:44 WBC 10.83 H (4.8-10.8) K/uL Hct 53.4 H (42-52) % POC Hct 53 H (42-52) % MCHC (32-36) g/dL RDW Std Deviation 53.6 H (36.4-46.3) fL RDW Coeff of Estela 16.7 H (11.5-14.5) % Immature Gran # (Auto) 0.06 H (0.00-0.02) K/uL Neut # (Auto) 9.20 H (1.4-6.5) K/uL Lymph # (Auto) 0.83 L (1.2-3.4) K/uL Fallon # (Auto) 0.61 H (0.11-0.59) K/uL POC Sodium 146 H (135-144) mEq/L Chloride 111 H (98-107) mmol/L POC Total CO2 22 L (24-31) mEq/l BUN (7-18) mg/dl Glucose 124 H (70-99) mg/dl POC Glucose (other) 125 H (70-99) mg/dl Calcium 8.3 L (8.5-10.1) mg/dl POC Ioniz Calcium Alona 1.03 L (1.12-1.32) mmol/l CK-MB (CK-2) 4.4 H (0.5-3.6) ng/ml CK/CKMB % Calc 3.1 H (0-3.0) 10/05/18 10/05/18 Range/Units 05:45 05:45 WBC (4.8-10.8) K/uL Hct (42-52) % POC Hct (42-52) % MCHC 31.6 L (32-36) g/dL RDW Std Deviation 55.4 H (36.4-46.3) fL RDW Coeff of Estela 17.0 H (11.5-14.5) % Immature Gran # (Auto) 0.04 H (0.00-0.02) K/uL Neut # (Auto) 8.69 H (1.4-6.5) K/uL Lymph # (Auto) 0.29 L (1.2-3.4) K/uL Fallon # (Auto) (0.11-0.59) K/uL POC Sodium (135-144) mEq/L Chloride 109 H (98-107) mmol/L POC Total CO2 (24-31) mEq/l BUN 19 H (7-18) mg/dl Glucose 126 H (70-99) mg/dl POC Glucose (other) (70-99) mg/dl Calcium 7.8 L (8.5-10.1) mg/dl POC Ioniz Calcium Alona (1.12-1.32) mmol/l CK-MB (CK-2) (0.5-3.6) ng/ml CK/CKMB % Calc (0-3.0) Diagnostic Findings CT abd pelvis IV con only CLINICAL HISTORY: 58 years-old Male presenting with Pt c/o diffuse abd pain. TECHNIQUE: Multidetector CT of the abdomen and pelvis was performed after the administration of intravenous contrast. IV contrast: 119 mL of Optiray 320. A dose lowering technique was used consistent with the principles of ALARA (as low as reasonably achievable). COMPARISON: 08/05/2018. CT DOSE (mGy.cm): The estimated cumulative dose is 586.86 mGycm. FINDINGS: Chief Merchandising Officer topogram: Cholecystectomy clips. Lung bases: Advanced emphysema. Respiratory artifact grades vibration of the lung bases. Normal heart size. No pericardial or pleural effusion. Liver: Normal morphology. Density suggestive of hepatic steatosis. No focal lesion. Patent hepatic vasculature. Biliary: Mild biliary ductal prominence likely a reservoir effect in the post cholecystectomy state. Gallbladder surgically absent. Pancreas: Normal. Spleen: Normal. Adrenal glands: Normal. Kidneys and ureters: Nonobstructing punctate calculus in the interpolar region of the right kidney versus. No hydronephrosis. Redemonstration of the 1 cm lower pole indeterminate right renal lesion. Left kidney normal. Ureters nondistended. Bladder: Normal. Pelvic organs: Prostate and seminal vesicles normal. Bowel: Few diverticula in the sigmoid colon.: Otherwise normal. The appendix is normal. No bowel obstruction. The stomach is mildly distended with fluid. Peritoneal cavity: No free fluid or intraperitoneal gas. Lymph nodes: No enlarged lymph nodes in the abdomen or pelvis. Vasculature: Atherosclerosis of the normal caliber abdominal aorta. IVC patent. Abdominal wall: Small fat-containing umbilical hernia. Musculoskeletal: Several old rib fractures noted. Heterogeneous sclerosis of the femoral heads with mild deformity consistent with osteonecrosis, unchanged. IMPRESSION: 1. No acute intra-abdominal pathology. 2. Nonobstructing punctate right renal calculus. 3. Unchanged indeterminate right renal lesion at the right lower pole. This could be followed with nonurgent ultrasound. 4. 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 5. Emphysema. R chest 1V portable CLINICAL HISTORY: 58 years-old Male presenting with Chest Pain. TECHNIQUE: Portable upright AP view of the chest was obtained. COMPARISON: CTA from 09/20/2018 and chest x-ray from 02/08/2018. FINDINGS: Left subclavian Mediport terminates in the mid SVC. Cardiomediastinal silhouette normal. Heterogeneity of lung parenchyma with relative radiolucency of the upper lobes as on prior exam. Ill-defined opacities in the right upper and mid lung as well as the left lung base as on prior exam. No new focal opacity. No large effusion or pneumothorax. Degenerative changes of the thoracic spine. IMPRESSION: 1. Findings suggest emphysema. No focal infiltrate to suggest pneumonia. 2. Chronic ill-defined opacities in the right upper and mid lung and left lung base correlate may correlate with the presence of underlying pulmonary nodules as evident on recent CTA. Electronically signed by: Angel Haines M.D. 10/04/2018 5:49 PM Medications Administered Current Inpatient Medications Acetaminophen (Tylenol) 650 mg PO Q4H PRN PRN Reason: pain/fever Stop: 11/03/18 22:36 Albuterol (Duoneb) 3 ml NEB QIDR [facility] Stop: 11/04/18 07:59 Last Admin: 10/05/18 11:08 Dose: 3 ml Albuterol (Ventolin 0.083% 2.5mg/3ml) 2.5 mg NEB Q6R PRN PRN Reason: Shortness Of Breath Stop: 11/03/18 22:36 Albuterol (Duoneb) 3 ml NEB Q2H PRN PRN Reason: Shortness Of Breath/Wheezing Stop: 11/03/18 22:48 Citalopram [facility] ([facility]lexa) [facility] [place] Stop: 11/04/18 08:59 Last Admin: 10/05/18 08:07 Dose: 20 mg Cyanocobalamin (Vitamin B-12) 1,000 mcg PO DAILY [facility] Stop: 11/04/18 08:59 Last Admin: 10/05/18 08:07 Dose: 1,000 mcg Enoxaparin Sodium (Lovenox) 40 mg SQ Q24H [facility] Stop: 11/03/18 22:59 Last Admin: 10/05/18 02:04 Dose: Not Given Gabapentin (Neurontin) 300 mg PO HS [facility] Stop: 11/04/18 20:59 Lactated Ringer's (Lr) 1,000 mls @ 125 mls/hr IV .Q8H [facility] Stop: 11/03/18 21:59 Last Admin: 10/05/18 08:01 Dose: 125 mls/hr Methylprednisolone 40 mg/ (Syringe) 0.64 mls @ 1.5 mls/min IV Q6H [facility] Stop: 11/04/18 00:00 Last Admin: 10/05/18 12:05 Dose: 1.5 mls/min Lubiprostone (Amitiza) 8 mcg PO BID [facility] Stop: 11/04/18 08:59 Last Admin: 10/05/18 08:07 Dose: 8 mcg Miscellaneous (Order Awaiting Action) 1 ea N/A QS [facility] Stop: 11/04/18 15:59 Ondansetron HCl (Zofran) 4 mg IV Q4H PRN PRN Reason: Nausea Stop: 11/03/18 22:36 Last Admin: 10/05/18 12:07 Dose: 4 mg Oxycodone/Acetaminophen (Percocet 5mg/325mg) 1 tab PO Q4H PRN PRN Reason: Pain Stop: 10/18/18 22:36 Last Admin: 10/05/18 13:55 Dose: 1 tab Pantoprazole Sodium (Protonix) 40 mg PO QAM [facility] Stop: 11/04/18 08:59 Last Admin: 10/05/18 08:07 Dose: 40 mg Fluticasone/Salmeterol (Advair Diskus 500/50) 1 puffs INH BID [facility] Stop: 11/04/18 09:59 Last Admin: 10/05/18 12:04 Dose: 1 puffs Temazepam (Restoril) 30 mg PO HS PRN PRN Reason: Insomnia Stop: 11/03/18 22:36 Triamcinolone Acetonide (Nasacort) 2 sprays BOYD DAILY [facility] Stop: 11/04/18 08:59 Last Admin: 10/05/18 08:09 Dose: 2 sprays Resident Activity Tracking Resident Involvement: Resident Care Provided Care Provided: Adult [facility] Medicine
[2018-10-05] MEDS ORDERED: SODIUM CHLORIDE 0.9% 1000ML 500 ML IV ONE (12:01)
[2018-10-05] MEDS ORDERED: LACTATED RINGER'S 500 ML IV ONE (12:03)
[2018-10-05] MEDS: FLUTICASONE/SALMETEROL (ADVAIR) 500/50 INH 14 PUFF INH SCH ×2 (12:04→20:30)
[2018-10-05] MEDS: GABAPENTIN 300 MG CAP PO SCH (20:30)
[2018-10-05 22:48] LABS: Influenza A virus by PCR Neg for Influ A (Neg); Influenza B virus by PCR Neg for Influ B (Neg)
--- NOTE | 2018-10-06 00:05 | Emergency Department Note ---
Entered by Shelly Lowry acting as a scribe for Cam Gonzalez MD History of Present Illness General Chief complaint: Vomiting Stated complaint: VOMTING, TROUBLE BREATHING, CANCER PT Time Seen by Provider: 10/04/18 16:05 Source: patient History of Present Illness Onset (ago): hour(s) (14) Location: abdomen Severity: similar to prior episodes Pain Consistency: + other (persistent) Maximum Pain Intensity: 6 Quality: + other (vomiting) Associated symptoms: + nausea/vomiting, + shortness of breath and + other ( positive diarrhea; positive abdominal pain); no chest pain The patient is a 58 year old male who presents to the Emergency Room with complaints of persistent vomiting that began 14 hours prior to arrival. The patient states that he has abdominal pain, diarrhea, and shortness of breath. He states that his symptoms are similar to prior episodes, and states that his symptoms have been intermittent over the past 6 years. The patient denies chest pain. Home Medications Home Medications Medication Instructions Recorded Confirmed Type citalopram 20 mg PO QAM 08/05/18 10/04/18 History fluticasone-salmeterol [Advair 1 inh INHALATION BID 08/05/18 10/04/18 History Diskus] ipratropium-albuterol 3 ml INHALATION QID 08/05/18 10/04/18 History ipratropium-albuterol [Combivent 1 puff INHALATION QID 08/05/18 10/04/18 History Respimat] levalbuterol HCl 3 ml INHALATION Q4H PRN 08/05/18 10/04/18 History lubiprostone [Amitiza] 8 mcg PO BID 08/05/18 10/04/18 History pantoprazole 40 mg PO QAM 08/05/18 10/04/18 History temazepam 30 mg PO HS PRN 08/05/18 10/04/18 History triamcinolone acetonide [Nasacort] 2 spray INTRANASAL DAILY 08/05/18 10/04/18 History umeclidinium [Incruse Ellipta] 1 inh INHALATION DAILY 08/05/18 10/04/18 History cyanocobalamin (vitamin B-12) 1,000 mcg PO DAILY #90 cap 08/08/18 10/04/18 Rx prednisone 10 mg PO DAILY #60 tab 08/08/18 10/04/18 Rx docusate sodium [Colace] 100 mg PO BID #60 cap 10/04/18 Rx gabapentin 300 mg PO HS 10/04/18 10/04/18 History ondansetron HCl [Zofran] 4 mg PO DAILY #6 tab 10/04/18 Rx oxycodone-acetaminophen [Percocet] 1 tab PO Q6H #14 tab 10/04/18 Rx sennosides [Senokot] 8.6 mg PO HS #30 tab 10/04/18 Rx Allergies Allergy/AdvReac Type Severity Reaction Status Date / Time No Known Allergies Allergy Verified 10/04/18 16:25 Past Med/Surg History Social History marital status: single marital status details: but has 1 daughter Current Living Situation: Alone current occupational status: disabled current occupation: previously worked at [employer] Other Information That Helps Us Care for You: No Feels Safe at Home: Yes Safety Concerns: Feels Safe At This Time Smoking Status: Current some day smoker Tobacco Type: cigarettes Second Hand Exposure: No Hx Alcohol Use: No Hx Substance Use: No Beliefs That Will Affect Care: None Preferred Language: Greenlandic Communication Ability: Effective Technical Systems Architect Required: No Review of Systems See HPI for pertinent positives & negatives. and A total of 10 systems reviewed and were otherwise negative Physical Exam Vital Signs Vital Signs - 24 hr 10/05/18 02:36 10/05/18 07:04 10/05/18 08:10 Temperature 36.5 C Temperature Source Oral Pulse Rate [Apical] Pulse Rate [Right Finger] 103 H 106 H Respiratory Rate 16 22 Respiratory Effort / Characteristics SOB on Exertion Respiratory Depth Respiratory Pattern Blood Pressure [Left Arm] Blood Pressure [Right Arm] 102/69 Blood Pressure Mean [Left Arm] Blood Pressure Mean [Right Arm] 80 Blood Pressure Position [Left Arm] Blood Pressure Position [Right Arm] Sitting Pulse Oximetry 95 92 Oxygen Delivery Method Nasal Cannula Nasal Cannula Oxygen Flow Rate 2 2 2 10/05/18 08:30 10/05/18 11:09 10/05/18 15:25 Temperature Temperature Source Pulse Rate [Apical] 102 H Pulse Rate [Right Finger] 86 Respiratory Rate 16 16 Respiratory Effort / Characteristics Non-Labored Spontaneous Respiratory Depth Normal Respiratory Pattern Regular Blood Pressure [Left Arm] Blood Pressure [Right Arm] Blood Pressure Mean [Left Arm] Blood Pressure Mean [Right Arm] Blood Pressure Position [Left Arm] Blood Pressure Position [Right Arm] Pulse Oximetry 92 92 Oxygen Delivery Method Nasal Cannula Room Air Nasal Cannula Room Air Oxygen Flow Rate 2 2 10/05/18 16:01 10/05/18 16:32 10/05/18 20:05 Temperature 36.8 C Temperature Source Oral Pulse Rate [Apical] Pulse Rate [Right Finger] 97 H 103 H Respiratory Rate 20 18 Respiratory Effort / Characteristics Spontaneous Short of Breath Non-Labored Spontaneous Respiratory Depth Normal Respiratory Pattern Regular Blood Pressure [Left Arm] 92/59 L Blood Pressure [Right Arm] Blood Pressure Mean [Left Arm] 70 Blood Pressure Mean [Right Arm] Blood Pressure Position [Left Arm] Lying Blood Pressure Position [Right Arm] Pulse Oximetry 93 85 L Oxygen Delivery Method Nasal Cannula Nasal Cannula Room Air Oxygen Flow Rate 2 2 10/05/18 23:01 Temperature 36.5 C Temperature Source Oral Pulse Rate [Apical] Pulse Rate [Right Finger] 102 H Respiratory Rate 18 Respiratory Effort / Characteristics Respiratory Depth Respiratory Pattern Blood Pressure [Left Arm] 109/63 Blood Pressure [Right Arm] Blood Pressure Mean [Left Arm] 78 Blood Pressure Mean [Right Arm] Blood Pressure Position [Left Arm] Lying Blood Pressure Position [Right Arm] Pulse Oximetry 96 Oxygen Delivery Method Nasal Cannula Oxygen Flow Rate 2 GENERAL: Awake, alert, well-appearing, in no distress HENT: Normocephalic, atraumatic. Oropharynx unremarkable. EYES: Normal conjunctiva. Sclera non-icteric. NECK: Supple. No nuchal rigidity. FROM. No masses. RESPIRATORY: Clear to auscultation. No wheezes. No rales. Normal respiratory effort. Distant breath sounds. CARDIAC: Normal rate. Normal rhythm. No murmurs. No rubs. Extremities warm and well perfused. Pulses equal. No JVD. GI: Soft, non-distended. Diffuse abdominal pain. No rebound or guarding. No masses. RECTAL: Deferred. MUSCULOSKELETAL: Atraumatic. Chest examination reveals no tenderness. The back is symmetrical on inspection without obvious abnormality. There is no CVA tenderness to palpation. No joint edema. LOWER EXTREMITIES: Calves are equal size bilaterally and non-tender. No edema. No discoloration. NEURO: Normal sensorium. No sensory or motor deficits noted. SKIN: No rash or jaundice noted. Course 1610: Past medical records reviewed. The patient was evaluated in room C4, and a complete history and physical examination were performed. 1924: I discussed the case with Dr. Kacie Curtis Hospitalist who will further evaluate the patient. Consultations Consultation #1: I discussed the case with Dr. Kacie Curtis Hospitalist who will further evaluate the patient. Time: 19:24 Administered Medications Albuterol (Duoneb) 3 ml NEB QIDR IMAN Stop: 11/04/18 07:59 Last Admin: 10/05/18 20:04 Dose: 3 ml Admin: 10/05/18 15:25 Dose: 3 ml Admin: 10/05/18 11:08 Dose: 3 ml Admin: 10/05/18 07:04 Dose: 3 ml Citalopram Hydrobromide (Celexa) 20 mg PO QAM IMAN Stop: 11/04/18 08:59 Last Admin: 10/05/18 08:07 Dose: 20 mg Cyanocobalamin (Vitamin B-12) 1,000 mcg PO DAILY IMAN Stop: 11/04/18 08:59 Last Admin: 10/05/18 08:07 Dose: 1,000 mcg Enoxaparin Sodium (Lovenox) 40 mg SQ Q24H IMAN Stop: 11/03/18 22:59 Last Admin: 10/05/18 22:06 Dose: 40 mg Admin: 10/05/18 02:04 Dose: Not Given Gabapentin (Neurontin) 300 mg PO HS IMAN Stop: 11/04/18 20:59 Last Admin: 10/05/18 20:30 Dose: 300 mg Lactated Ringer's (Lr) 1,000 mls @ 125 mls/hr IV .Q8H IMAN Stop: 11/03/18 21:59 Last Infusion: 10/05/18 21:26 Dose: 125 mls/hr Admin: 10/05/18 20:31 Dose: 125 mls/hr Infusion: 10/05/18 20:31 Dose: 125 mls/hr Admin: 10/05/18 15:17 Dose: 125 mls/hr Infusion: 10/05/18 15:17 Dose: 125 mls/hr Admin: 10/05/18 08:01 Dose: 125 mls/hr Infusion: 10/05/18 06:50 Dose: 125 mls/hr Admin: 10/04/18 22:50 Dose: 125 mls/hr Methylprednisolone 40 mg/ (Syringe) 0.64 mls @ 1.5 mls/min IV Q6H [facility] Stop: 11/04/18 00:00 Last Admin: 10/05/18 17:38 Dose: 1.5 mls/min Admin: 10/05/18 12:05 Dose: 1.5 mls/min Admin: 10/05/18 07:13 Dose: 1.5 mls/min Admin: 10/05/18 02:04 Dose: 1.5 mls/min Lubiprostone (Amitiza) 8 mcg PO BID [facility] Stop: 11/04/18 08:59 Last Admin: 10/05/18 20:30 Dose: 8 mcg Admin: 10/05/18 08:07 Dose: 8 mcg Miscellaneous (Order Awaiting Action) 1 ea N/A QS [facility] Stop: 11/04/18 15:59 Last Admin: 10/05/18 16:29 Dose: Not Given Ondansetron HCl (Zofran) 4 mg IV Q4H PRN PRN Reason: Nausea Stop: 11/03/18 22:36 Last Admin: 10/05/18 16:46 Dose: 4 mg Admin: 10/05/18 12:07 Dose: 4 mg Admin: 10/05/18 06:44 Dose: 4 mg Admin: 10/04/18 22:51 Dose: 4 mg Oxycodone/Acetaminophen (Percocet 5mg/325mg) 1 tab PO Q4H PRN PRN Reason: Pain Stop: 10/18/18 22:36 Last Admin: 10/05/18 13:55 Dose: 1 tab Admin: 10/05/18 06:44 Dose: 1 tab Admin: 10/04/18 22:51 Dose: 1 tab Pantoprazole Sodium (Protonix) 40 mg PO QAM [facility] Stop: 11/04/18 08:59 Last Admin: 10/05/18 08:07 Dose: 40 mg Fluticasone/Salmeterol (Advair Diskus 500/50) 1 puffs INH BID [facility] Stop: 11/04/18 09:59 Last Admin: 10/05/18 20:30 Dose: 1 puffs Admin: 10/05/18 12:04 Dose: 1 puffs Triamcinolone Acetonide (Nasacort) 2 sprays BOYD DAILY [facility] Stop: 11/04/18 08:59 Last Admin: 10/05/18 08:09 Dose: 2 sprays Discontinued Medications Albuterol (Duoneb) 12 ml NEB ONE ONE Stop: 10/04/18 16:14 Last Admin: 10/04/18 16:34 Dose: 12 ml Hydromorphone HCl (Dilaudid) 1 mg IV Q15M PRN PRN Reason: Pain Stop: 10/18/18 16:12 Last Admin: 10/04/18 18:35 Dose: 1 mg Admin: 10/04/18 16:50 Dose: 1 mg Admin: 10/04/18 16:31 Dose: 1 mg Sodium Chloride (Nss) 500 mls @ 999 mls/hr IV .Q31M IMAN Stop: 10/04/18 16:45 Last Infusion: 10/04/18 17:31 Dose: 0 mls/hr Admin: 10/04/18 16:31 Dose: 999 mls/hr Lactated Ringer's (Lr) 500 mls @ 250 mls/hr IV .Q2H ONE Stop: 10/05/18 14:02 Last Infusion: 10/05/18 15:18 Dose: 0 mls/hr Admin: 10/05/18 12:54 Dose: 250 mls/hr Ioversol (Optiray 320 125ml) 119 ml IV ONCE PRN PRN Reason: Interaction Checking Stop: 10/08/18 18:09 Last Admin: 10/04/18 18:10 Dose: 119 ml Ketorolac Tromethamine (Toradol) 30 mg IV NOW STA Stop: 10/04/18 16:14 Last Admin: 10/04/18 16:31 Dose: 30 mg Methylprednisolone (Solumedrol) 125 mg IV NOW STA Stop: 10/04/18 16:14 Last Admin: 10/04/18 16:31 Dose: 125 mg Metoclopramide HCl (Reglan) 10 mg IV NOW STA Stop: 10/04/18 18:28 Last Admin: 10/04/18 18:35 Dose: 10 mg Ondansetron HCl (Zofran) Confirm Administered Dose 4 mg .ROUTE .STK-MED ONE Stop: 10/04/18 16:00 Last Admin: 10/04/18 16:03 Dose: 4 mg Ondansetron HCl (Zofran) 4 mg IV NOW STA Stop: 10/04/18 16:16 Last Admin: 10/04/18 16:31 Dose: 4 mg Ondansetron HCl (Zofran Odt 4mg Home Pack) 1 homepack PO NOW ONE Stop: 10/04/18 18:58 Last Admin: 10/04/18 19:38 Dose: Not Given Oxycodone/Acetaminophen (Percocet 5/325 Homepack) 1 homepack PO UD ONE Stop: 10/04/18 18:58 Last Admin: 10/04/18 19:38 Dose: Not Given Medical Decision Making Differential Diagnosis Differential diagnosis: Etiologies such as gastroenteritis, food borne illness, infections, appendicitis , diverticulitis, inflammatory bowel disease, obstruction, GI bleed, biliary pathology, cardiac process, intracranial process, as well as others were entertained. Medical Records Attestation: I reviewed the patient's medical records. Home Medications Current Medication List: was personally reviewed by me Laboratory Data Attestation: I reviewed the patient's lab results. Result diagrams: 10/05/18 05:45 10/05/18 05:45 Lab Results 10/04/18 10/04/18 10/04/18 Range/Units 16:35 16:35 16:44 WBC 10.83 H (4.8-10.8) K/uL RBC 6.05 (4.7-6.1) M/uL Hgb 17.5 (14.0-18.0) g/dL POC Hgb 18.0 (14.0-18.0) g/dl Hct 53.4 H (42-52) % POC Hct 53 H (42-52) % MCV 88.3 (80-100) fL MCH 28.9 (25-34) pg MCHC 32.8 (32-36) g/dL RDW Std Deviation 53.6 H (36.4-46.3) fL RDW Coeff of Estela 16.7 H (11.5-14.5) % Plt Count 223 (130-400) K/uL MPV 10.1 (7.4-10.4) fL Immature Gran % (Auto) 0.6 % Neut % (Auto) 84.9 % Lymph % (Auto) 7.7 % [place] % (Auto) 5.6 % Eos % (Auto) 1.0 % Baso % (Auto) 0.2 % Immature Gran # (Auto) 0.06 H (0.00-0.02) K/uL Neut # (Auto) 9.20 H (1.4-6.5) K/uL Lymph # (Auto) 0.83 L (1.2-3.4) K/uL [place] # (Auto) 0.61 H (0.11-0.59) K/uL Eos # (Auto) 0.11 (0-0.5) K/uL Baso # (Auto) 0.02 (0-0.2) K/uL POC Sodium 146 H (135-144) mEq/L Sodium 143 (136-145) mmol/L POC Potassium 3.8 (3.3-5.0) mEq/L Potassium 4.0 (3.5-5.1) mmol/L POC Chloride 108 (101-112) mEq/L Chloride 111 H (98-107) mmol/L Carbon Dioxide 24 (21-32) mmol/L POC Total CO2 22 L (24-31) mEq/l Anion Gap 8.0 (3-11) POC Anion Gap 20.0 (16-25) mmol/L POC BUN 18 (7-18) mg/dl BUN 17 (7-18) mg/dl Creatinine 1.11 (0.6-1.4) mg/dl POC Creatinine 1.0 (0.6-1.3) mg/dl Est Cr Clr Drug Dosing 77.2 ml/min Est GFR ( Amer) 84.4 Est GFR (Non-Af Amer) 72.8 BUN/Creatinine Ratio 15.4 (10-20) Glucose 124 H (70-99) mg/dl POC Glucose (other) 125 H (70-99) mg/dl Calcium 8.3 L (8.5-10.1) mg/dl POC Ioniz Calcium [place] 1.03 L (1.12-1.32) mmol/l Total Bilirubin 1.0 (0.2-1) mg/dl AST 15 (15-37) U/L ALT 37 (12-78) U/L Alkaline Phosphatase 86 (45-117) U/L Total Creatine Kinase 142 (39-308) U/L CK-MB (CK-2) 4.4 H (0.5-3.6) ng/ml CK/CKMB % Calc 3.1 H (0-3.0) Troponin I < 0.015 (0-0.045) ng/ml Total Protein 6.8 (6.4-8.2) gm/dl Albumin 3.5 (3.4-5.0) gm/dl Globulin 3.3 (2.5-4.0) gm/dl Albumin/Globulin Ratio 1.1 (0.9-2) Lipase 105 (73-393) U/L Specimen Hemolysis Influenza Type A (PCR) (Neg) Influenza Type B (PCR) (Neg) 10/05/18 10/05/18 10/05/18 Range/Units 05:45 05:45 22:05 WBC 9.14 (4.8-10.8) K/uL RBC 5.41 (4.7-6.1) M/uL Hgb 15.3 (14.0-18.0) g/dL POC Hgb (14.0-18.0) g/dl Hct 48.4 (42-52) % POC Hct (42-52) % MCV 89.5 (80-100) fL MCH 28.3 (25-34) pg MCHC 31.6 L (32-36) g/dL RDW Std Deviation 55.4 H (36.4-46.3) fL RDW Coeff of Estela 17.0 H (11.5-14.5) % Plt Count 229 (130-400) K/uL MPV 9.5 (7.4-10.4) fL Immature Gran % (Auto) 0.4 % Neut % (Auto) 95.1 % Lymph % (Auto) 3.2 % [place] % (Auto) 1.3 % Eos % (Auto) 0.0 % Baso % (Auto) 0.0 % Immature Gran # (Auto) 0.04 H (0.00-0.02) K/uL Neut # (Auto) 8.69 H (1.4-6.5) K/uL Lymph # (Auto) 0.29 L (1.2-3.4) K/uL [place] # (Auto) 0.12 (0.11-0.59) K/uL Eos # (Auto) 0.00 (0-0.5) K/uL Baso # (Auto) 0.00 (0-0.2) K/uL POC Sodium (135-144) mEq/L Sodium 142 (136-145) mmol/L POC Potassium (3.3-5.0) mEq/L Potassium 4.2 (3.5-5.1) mmol/L POC Chloride (101-112) mEq/L Chloride 109 H (98-107) mmol/L Carbon Dioxide 25 (21-32) mmol/L POC Total CO2 (24-31) mEq/l Anion Gap 8.0 (3-11) POC Anion Gap (16-25) mmol/L POC BUN (7-18) mg/dl BUN 19 H (7-18) mg/dl Creatinine 1.16 (0.6-1.4) mg/dl POC Creatinine (0.6-1.3) mg/dl Est Cr Clr Drug Dosing 75.6 ml/min Est GFR ( Amer) 80.0 Est GFR (Non-Af Amer) 69.0 BUN/Creatinine Ratio 15.9 (10-20) Glucose 126 H (70-99) mg/dl POC Glucose (other) (70-99) mg/dl Calcium 7.8 L (8.5-10.1) mg/dl POC Ioniz Calcium [place] (1.12-1.32) mmol/l Total Bilirubin (0.2-1) mg/dl AST (15-37) U/L ALT (12-78) U/L Alkaline Phosphatase (45-117) U/L Total Creatine Kinase (39-308) U/L CK-MB (CK-2) (0.5-3.6) ng/ml CK/CKMB % Calc (0-3.0) Troponin I (0-0.045) ng/ml Total Protein (6.4-8.2) gm/dl Albumin (3.4-5.0) gm/dl Globulin (2.5-4.0) gm/dl Albumin/Globulin Ratio (0.9-2) Lipase (73-393) U/L Specimen Hemolysis Influenza Type A (PCR) Neg for Influ A (Neg) Influenza Type B (PCR) Neg for Influ B (Neg) Imaging Data Radiologist's Impression: Radiology results as stated below per my review and the radiologist's interpretation: XR chest 1V portable CLINICAL HISTORY: 58 years-old Male presenting with Chest Pain. TECHNIQUE: Portable upright AP view of the chest was obtained. COMPARISON: CTA from 09/20/2018 and chest x-ray from 02/08/2018. FINDINGS: Left subclavian Mediport terminates in the mid SVC. Cardiomediastinal silhouette normal. Heterogeneity of lung parenchyma with relative radiolucency of the upper lobes as on prior exam. Ill-defined opacities in the right upper and mid lung as well as the left lung base as on prior exam. No new focal opacity. No large effusion or pneumothorax. Degenerative changes of the thoracic spine. IMPRESSION: 1. Findings suggest emphysema. No focal infiltrate to suggest pneumonia. 2. Chronic ill-defined opacities in the right upper and mid lung and left lung base correlate may correlate with the presence of underlying pulmonary nodules as evident on recent CTA. Electronically signed by: Angel Haines M.D. 10/04/2018 5:[address] abd pelvis IV con only CLINICAL HISTORY: 58 years-old Male presenting with Pt c/o diffuse abd pain. TECHNIQUE: Multidetector CT of the abdomen and pelvis was performed after the administration of intravenous contrast. IV contrast: 119 mL of Optiray 320. A dose lowering technique was used consistent with the principles of ALARA (as low as reasonably achievable). COMPARISON: 08/05/2018. CT DOSE (mGy.cm): The estimated cumulative dose is 586.86 mGycm. FINDINGS: Lodge Attendant topogram: Cholecystectomy clips. Lung bases: Advanced emphysema. Respiratory artifact grades vibration of the lung bases. Normal heart size. No pericardial or pleural effusion. Liver: Normal morphology. Density suggestive of hepatic steatosis. No focal lesion. Patent hepatic vasculature. Biliary: Mild biliary ductal prominence likely a reservoir effect in the post cholecystectomy state. Gallbladder surgically absent. Pancreas: Normal. Spleen: Normal. Adrenal glands: Normal. Kidneys and ureters: Nonobstructing punctate calculus in the interpolar region of the right kidney versus. No hydronephrosis. Redemonstration of the 1 cm lower pole indeterminate right renal lesion. Left kidney normal. Ureters nondistended. Bladder: Normal. Pelvic organs: Prostate and seminal vesicles normal. Bowel: Few diverticula in the sigmoid colon.: Otherwise normal. The appendix is normal. No bowel obstruction. The stomach is mildly distended with fluid. Peritoneal cavity: No free fluid or intraperitoneal gas. Lymph nodes: No enlarged lymph nodes in the abdomen or pelvis. Vasculature: Atherosclerosis of the normal caliber abdominal aorta. IVC patent. Abdominal wall: Small fat-containing umbilical hernia. Musculoskeletal: Several old rib fractures noted. Heterogeneous sclerosis of the femoral heads with mild deformity consistent with osteonecrosis, unchanged. IMPRESSION: 1. No acute intra-abdominal pathology. 2. Nonobstructing punctate right renal calculus. 3. Unchanged indeterminate right renal lesion at the right lower pole. This could be followed with nonurgent ultrasound. 4. 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 5. Emphysema. Electronically signed by: Angel Haines M.D. 10/04/2018 6:28 PM ECG Data Attestation: I personally reviewed and interpreted this ECG as follows: Indication: vomiting Rate (beats per minute): 111 Rhythm: sinus tachycardia Findings: no ST depression and no ST elevation Blood Pressure Blood Pressure Findings: Normal blood pressure MDM Narrative This is a 58-year-old male who presents emergency department with multiple complaints during her period of high volume and high acuity during decreased provider coverage. The patient is hypoxic upon arrival to the emergency department. He was given an hour-long breathing treatment. The patient was also started on Solu-Medrol. He is also complaining of abdominal pain therefore he was sent for a CAT scan of the abdomen pelvis. The patient did remain hypoxic here and he was started on Solu-Medrol. Because of his hypoxia I did discuss the case with the hospitalist service who agreed to admit the patient. The patient was given Dilaudid for his pain. Repeat examination revealed improvement in patient's symptoms. Impression & Plan Acute exacerbation of chronic obstructive pulmonary disease (COPD), Vomiting, Hypoxia Discharge Plan Visit Data *Final* Discharge Date/Time: 10/04/18 22:18 Chief Complaint: Vomiting Stated Complaint: VOMTING, TROUBLE BREATHING, CANCER PT ED Provider: Cam Gonzalez Discharge Problem: Acute exacerbation of chronic obstructive pulmonary disease (COPD), Vomiting, Hypoxia Patient Disposition: Admitted As Inpatient Discharge Instructions Interventions: ED Discharge Assessment Last Done: 10/04/18 22:18 The scribe's documentation has been prepared under my direction and personally reviewed by me in its entirety. I confirm that the note above accurately reflects all work, treatment, procedures, and medical decision making performed by me.
[2018-10-06] MEDS: methylPREDNISolone 40 MG in SYRINGE 0 ML IV SCH ×5 (00:22→23:49)
[2018-10-06] MEDS: ONDANSETRON INJ 2 MG/ML 2 ML VIAL IV PRN ×5 (00:22→21:32)
[2018-10-06] MEDS: LACTATED RINGER'S 1,000 ML IV SCH ×2 (04:50→14:27)
[2018-10-06 07:01] LABS: Basophils # (auto) 0.01 K/uL (0-0.2); Basophils % (auto) 0.1 %; Hematocrit (blood only) 41.2 % (42-52); Hemoglobin 13.3 g/dL (14.0-18.0); Immature Granulocytes # (auto) 0.02 K/uL (0.00-0.02); Immature Granulocytes % (auto) 0.2 %; Lymphocytes # (auto) 0.46 K/uL (1.2-3.4); Lymphocytes % (auto) 4.7 %; Mean Corpuscular Hgb Conc 32.3 g/dL (32-36); Mean Corpuscular Volume 88.8 fL (80-100); Mean Platelet Volume 9.1 fL (7.4-10.4); Monocytes # (auto) 0.28 K/uL (0.11-0.59); Monocytes % (auto) 2.8 %; Neutrophils # (auto) 9.11 K/uL (1.4-6.5); Neutrophils % (auto) 92.2 %; Platelet Count 216 K/uL (130-400); RDW Coefficient of Variation 16.9 % (11.5-14.5); Red Blood Count 4.64 M/uL (4.7-6.1); White Blood Count 9.88 K/uL (4.8-10.8)
[2018-10-06] MEDS: ALBUT/IPRATROP 3MG/0.5MG NEB 3 ML VIAL NEB SCH ×4 (07:29→18:58)
[2018-10-06 07:33] LABS: BUN Creatinine Ratio 13.9 (10-20); Calcium 7.8 mg/dl (8.5-10.1); Creatinine Clr Calc Pharmacy 84.3 ml/min; Est GFR (African American) 91.3; Est GFR (Non-African American) 78.8; Potassium 3.9 mmol/L (3.5-5.1)
[2018-10-06] MEDS: FLUTICASONE/SALMETEROL (ADVAIR) 500/50 INH 14 PUFF INH SCH ×2 (07:38→21:32)
[2018-10-06] MEDS: TRIAMCINOLONE ACET NASAL SPRAY 10.8ML BTL NAE SCH (07:38)
[2018-10-06] MEDS: CITALOPRAM 20 MG TAB PO SCH (07:38)
[2018-10-06] MEDS: LUBIPROSTONE 8 MCG CAP PO SCH ×2 (07:39→21:36)
[2018-10-06] MEDS: CYANOCOBALAMIN 500 MCG TABLET (VITAMIN B-12) PO SCH (07:39)
[2018-10-06] MEDS: PANTOprazole 40 MG TAB PO SCH (07:39)
--- NOTE | 2018-10-06 11:07 | Family Medicine Progress Note ---
Date of Service October 06, 2018 Assessment & Plan (1) Nausea vomiting and diarrhea: 50-year-old male was admitted on 04 October 2018 for nausea, vomiting, diarrhea and hypoxia. Nausea, vomiting, diarrhea: Acute onset x 1 day prior to admission. Likely acute viral gastroenteritis given sick family contacts with similar symptoms ( daughter and her children). Afebrile with Mild improving tachycardia likely due to dehydration as it improved post hydration vs. due to being on albuterol. CT abdomen pelvis with no acute changes. Non-peritoneal abdominal exam. - rapid flu negative - Continue IV fluids 125mls LR - Given bolus of 500ml LR as well for concern of tachycardia 2/2 dehydration on 10/05/17 - Zofran for nausea as needed every 4 hours - Pain control: On percocet 1 tab Q4H PRN for chronic back pain hx and tylenol prn Hypoxia, COPD exacerbation: Has has baseline sob due to severe COPD but reports worsening sob in the setting of recent viral illness. No chronic O2 dependence. Afebrile. SpO2 as low as 86% on room air. Sating well on 2 L nasal cannula this AM. CXR notable for emphysema. - At home is on Advair, Combivent, Incruse Ellipta, Nasacort, levalbuterol, and daily prednisone 10 mg. 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 Says Dr. Langley is [facility] about every 6 months. Lumbar back pain: At home on Percocet continued Vitamin B12 deficiency: At home on vitamin B12. Continued. Neuropathy: At home is on gabapentin. Continued. GERD: At home is on pantoprazole. Continued. Avascular necrosis of both hips. Insomnia: At home is on restoril. Continued. Depression: At home is on citalopram. Continued. Code status: Full code. Diet: Full liquid, advance as tolerated. DVT prophy: Lovenox. PT/OT: Deferred. Disbo: Home pending clinical improvement (2) Hypoxia: (3) Acute exacerbation of chronic obstructive pulmonary disease (COPD): (4) History of lung cancer: (5) Lumbar back pain: (6) Vitamin B12 deficiency: (7) Neuropathy: (8) GERD (gastroesophageal reflux disease): (9) Avascular necrosis of bones of both hips: (10) Insomnia: (11) Depression: Supervising Physician Co-Signing Physician Notes Attending attestation Pt seen and examined in concert with Dr. Moreno. In agreement with the documented findings as noted in the resident documentation with any exceptions or additions as noted here. Improving nausea and now tolerating PO liquids. Shortness of breath at baseline at rest but worse with exertion (walking to bathroom) with subjectively increased sputum production and cough frequency. On examination, S1/S2 nl RRR no MCG. Abd NT/ND BS+ve. Diffusely decreased breathsounds bilaterally with scattered mild wheeze. Intractable nausea/vomiting - improving - advance diet as tolerated, zofran q6h as needed. Taper IVF. COPD exacerbation in the setting of stage IV lung CA s/p rad/chemo - based on persistent SOB with exertion and cough w/ increased production, add azithromycin. Taper steroid dosing. Chronic lower back pain - percocet for pain control as noted Else see resident documentation as noted. Subjective This AM pt reports persistent occasional sob, ALVARADO and productive cough. Also continues to have dry heaves but improving abdominal pain but no vomiting or diarrhea since admission. Remains on 2L NC. Denies any f/c, cp, headache/dizziness, dysuria Physical Exam 2 Vital Signs (Past 24 Hours): Last Vital Signs Temp 36.5 C 10/06/18 07:06 Pulse 96 H 10/06/18 07:29 Resp 16 10/06/18 07:29 BP 103/71 10/06/18 07:06 Pulse Ox 88 L 10/06/18 07:29 Physical Exam: General: resting in bed and noted to be coughing but not having any respiratory distress and able to speak in full sentences Neuro: alert and oriented CV: RRR,no murmurs, rubs or gallops Pulm: Milldy diminished breath sounds o/w good lung aeration, CTAB, no wheezing or crackles appreciated Abdomen: +BS, TTP of RLQ, no rebound tenderness, non-distended LE: no LE pitting edema or calf tenderness Results & Data Laboratory Results Abnormal lab results 10/06/18 10/06/18 Range/Units 06:38 06:38 RBC 4.64 L (4.7-6.1) M/uL Hgb 13.3 L (14.0-18.0) g/dL Hct 41.2 L (42-52) % RDW Std Deviation 55.0 H (36.4-46.3) fL RDW Coeff of Estela 16.9 H (11.5-14.5) % Neut # (Auto) 9.11 H (1.4-6.5) K/uL Lymph # (Auto) 0.46 L (1.2-3.4) K/uL Chloride 109 H (98-107) mmol/L Glucose 128 H (70-99) mg/dl Calcium 7.8 L (8.5-10.1) mg/dl Medications Administered Current Inpatient Medications Acetaminophen (Tylenol) 650 mg PO Q4H PRN PRN Reason: pain/fever Stop: 11/03/18 22:36 Albuterol (Duoneb) 3 ml NEB QIDR [facility] Stop: 11/04/18 07:59 Last Admin: 10/06/18 15:03 Dose: 3 ml Albuterol (Ventolin 0.083% 2.5mg/3ml) 2.5 mg NEB Q6R PRN PRN Reason: Shortness Of Breath Stop: 11/03/18 22:36 Albuterol (Duoneb) 3 ml NEB Q2H PRN PRN Reason: Shortness Of Breath/Wheezing Stop: 11/03/18 22:48 Azithromycin (Zithromax) 250 mg PO QAM [facility] Stop: 10/10/18 09:01 Citalopram Hydrobromide (Celexa) 20 mg PO QAM [facility] Stop: 11/04/18 08:59 Last Admin: 10/06/18 07:38 Dose: 20 mg Cyanocobalamin (Vitamin B-12) 1,000 mcg PO DAILY [facility] Stop: 11/04/18 08:59 Last Admin: 10/06/18 07:39 Dose: 1,000 mcg Enoxaparin Sodium (Lovenox) 40 mg SQ Q24H [facility] Stop: 11/03/18 22:59 Last Admin: 10/05/18 22:06 Dose: 40 mg Gabapentin (Neurontin) 300 mg PO HS [facility] Stop: 11/04/18 20:59 Last Admin: 10/05/18 20:30 Dose: 300 mg Lactated Ringer's (Lr) 1,000 mls @ 125 mls/hr IV .Q8H [facility] Stop: 11/03/18 21:59 Last Admin: 10/06/18 14:27 Dose: 125 mls/hr Methylprednisolone 40 mg/ (Syringe) 0.64 mls @ 1.5 mls/min IV Q6H [facility] Stop: 11/04/18 00:00 Last Admin: 10/06/18 11:09 Dose: 1.5 mls/min Lubiprostone (Amitiza) 8 mcg PO BID [facility] Stop: 11/04/18 08:59 Last Admin: 10/06/18 07:39 Dose: 8 mcg Miscellaneous (Order Awaiting Action) 1 ea N/A QS [facility] Stop: 11/04/18 15:59 Last Admin: 10/06/18 07:40 Dose: Not Given Ondansetron HCl (Zofran) 4 mg IV Q4H PRN PRN Reason: Nausea Stop: 11/03/18 22:36 Last Admin: 10/06/18 11:09 Dose: 4 mg Oxycodone/Acetaminophen (Percocet 5mg/325mg) 1 tab PO Q4H PRN PRN Reason: Pain Stop: 10/18/18 22:36 Last Admin: 10/05/18 13:55 Dose: 1 tab Pantoprazole Sodium (Protonix) 40 mg PO QAM [facility] Stop: 11/04/18 08:59 Last Admin: 10/06/18 07:39 Dose: 40 mg Fluticasone/Salmeterol (Advair Diskus 500/50) 1 puffs INH BID [facility] Stop: 11/04/18 09:59 Last Admin: 10/06/18 07:38 Dose: 1 puffs Temazepam (Restoril) 30 mg PO HS PRN PRN Reason: Insomnia Stop: 11/03/18 22:36 Triamcinolone Acetonide (Nasacort) 2 sprays BOYD DAILY [facility] Stop: 11/04/18 08:59 Last Admin: 10/06/18 07:38 Dose: 2 sprays Resident Activity Tracking Resident Involvement: Resident Care Provided Care Provided: Adult [facility] Medicine
[2018-10-06] MEDS ORDERED: AZITHROMYCIN 250 MG TAB PO ONE (14:27)
[2018-10-06] MEDS: HEPARIN 100 UNIT/ML 5ML FLUSH FLUSH SCH (16:14)
[2018-10-06] MEDS: OXYCODONE/ACETAMINOPHEN 5mg/325mg TAB PO PRN (17:52)
[2018-10-06] MEDS: GABAPENTIN 300 MG CAP PO SCH (21:36)
[2018-10-06] MEDS: ENOXAPARIN INJ 40 MG/0.4 ML SYR SQ SCH (21:37)
[2018-10-06] MEDS: TEMAZEPAM 15 MG CAPSULE PO PRN (23:49)
[2018-10-07] MEDS: ONDANSETRON INJ 2 MG/ML 2 ML VIAL IV PRN ×5 (01:57→20:03)
[2018-10-07] MEDS: methylPREDNISolone 40 MG in SYRINGE 0 ML IV SCH ×3 (05:50→17:41)
[2018-10-07] MEDS: ALBUT/IPRATROP 3MG/0.5MG NEB 3 ML VIAL NEB SCH ×4 (07:17→18:57)
[2018-10-07] MEDS: LUBIPROSTONE 8 MCG CAP PO SCH ×2 (08:17→21:01)
[2018-10-07] MEDS: FLUTICASONE/SALMETEROL (ADVAIR) 500/50 INH 14 PUFF INH SCH ×2 (08:17→21:00)
[2018-10-07] MEDS: CITALOPRAM 20 MG TAB PO SCH (08:17)
[2018-10-07] MEDS: PANTOprazole 40 MG TAB PO SCH (08:17)
[2018-10-07] MEDS: CYANOCOBALAMIN 500 MCG TABLET (VITAMIN B-12) PO SCH (08:17)
[2018-10-07] MEDS: AZITHROMYCIN 250 MG TAB PO SCH (08:18)
[2018-10-07] MEDS: TRIAMCINOLONE ACET NASAL SPRAY 10.8ML BTL NAE SCH (08:18)
[2018-10-07] MEDS: OXYCODONE/ACETAMINOPHEN 5mg/325mg TAB PO PRN (08:22)
[2018-10-07] MEDS ORDERED: AZITHROMYCIN 250 MG TAB PO ONE (09:00)
[2018-10-07] MEDS: HEPARIN 100 UNIT/ML 5ML FLUSH FLUSH SCH ×4 (10:24→17:42)
[2018-10-07] MEDS ORDERED: POLYETHYLENE (MIRALAX) 17 GM PACK PO STA (14:04)
[2018-10-07] MEDS ORDERED: DOCUSATE SODIUM 100 MG CAP PO ONE (14:04)
--- NOTE | 2018-10-07 18:42 | Family Medicine Progress Note ---
Date of Service October 07, 2018 Assessment & Plan (1) Nausea vomiting and diarrhea: 50-year-old male was admitted on 04 October 2018 for nausea, vomiting, diarrhea and hypoxia. Now on RA with improved vomiting, and diarrhea. Having occasional nausea and abdominal pain. Nausea, vomiting, diarrhea: Acute onset x 1 day prior to admission. Likely acute viral gastroenteritis given sick family contacts with similar symptoms ( daughter and her children). HD stable. CT abdomen pelvis with no acute changes. Non-peritoneal improving abdominal exam. - rapid flu negative - Received IVFs - Zofran for nausea as needed every 4 hours - Pain control: On percocet 1 tab Q4H PRN for chronic back pain hx and tylenol prn Hypoxia, COPD exacerbation: Has has baseline sob due to severe COPD but reports worsening sob in the setting of recent viral illness. No chronic O2 dependence. CXR notable for emphysema. Now on RA - At home is on Advair, Combivent, Incruse Ellipta, Nasacort, levalbuterol, and daily prednisone 10 mg. 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 Says Dr. Langley is [facility] about every 6 months. Lumbar back pain: At home on Percocet continued Vitamin B12 deficiency: At home on vitamin B12. Continued. Neuropathy: At home is on gabapentin. Continued. GERD: At home is on pantoprazole. Continued. Avascular necrosis of both hips. Insomnia: At home is on restoril. Continued. Depression: At home is on citalopram. Continued. Code status: Full code. Diet: Regular diet DVT prophy: Lovenox. PT/OT: Deferred. Disbo: Home pending clinical improvement (2) Hypoxia: (3) Acute exacerbation of chronic obstructive pulmonary disease (COPD): (4) History of lung cancer: (5) Lumbar back pain: (6) Vitamin B12 deficiency: (7) Neuropathy: (8) GERD (gastroesophageal reflux disease): (9) Avascular necrosis of bones of both hips: (10) Insomnia: (11) Depression: Supervising Physician Co-Signing Physician Notes Attending attestation Pt seen and examined in concert with Dr. Moreno. In agreement with the documented findings as noted in the resident documentation with any exceptions or additions as noted here. Essentially resolved N/V, tolerating PO well. No BM as yet with subjective lower abd discomfort (no BM for 3-4 days). SOB at baseline and improved at rest w/ decreased cough frequency and severeity. On examination, S1/S2 nl RRR no MCG. Abd NT/ND BS+ve. Diffusely decreased breathsounds bilaterally with scattered mild wheeze. Intractable nausea/vomiting - advanced diet to full. Miralax and colace for BM, zofran q6h as needed. Taper IVF. COPD exacerbation in the setting of stage IV lung CA s/p rad/chemo - continue azithromycin, steroid w/ rapid taper, albuterol neb Chronic lower back pain - percocet for pain control as noted Else see resident documentation as noted. Subjective This AM pt reports improving sob, and nausea. Has occasional abdominal pain and dry heaves. Pt reports constipation. Denies any f/c, cp, headache/dizziness, dysuria Physical Exam 2 Vital Signs (Past 24 Hours): Last Vital Signs Temp 36.4 C L 10/07/18 15:14 Pulse 79 10/07/18 15:29 Resp 16 10/07/18 15:29 BP 117/74 10/07/18 15:14 Pulse Ox 95 10/07/18 15:29 Physical Exam: General: resting in bed and comfortable Neuro: alert and oriented CV: RRR,no murmurs, rubs or gallops Pulm: CTAB, no wheezing or crackles appreciated, good lung aeration Abdomen: +BS, improved TTP of R upper and lower quadrants, no rebound tenderness , non-distended LE: no LE pitting edema or calf tenderness Results & Data Medications Administered Current Inpatient Medications Acetaminophen (Tylenol) 650 mg PO Q4H PRN PRN Reason: pain/fever Stop: 11/03/18 22:36 Albuterol (Duoneb) 3 ml NEB QIDR [facility] Stop: 11/04/18 07:59 Last Admin: 10/07/18 18:57 Dose: 3 ml Albuterol (Ventolin 0.083% 2.5mg/3ml) 2.5 mg NEB Q6R PRN PRN Reason: Shortness Of Breath Stop: 11/03/18 22:36 Albuterol (Duoneb) 3 ml NEB Q2H PRN PRN Reason: Shortness Of Breath/Wheezing Stop: 11/03/18 22:48 Azithromycin (Zithromax) 250 mg PO QAM [facility] Stop: 10/10/18 09:01 Last Admin: 10/07/18 08:18 Dose: 250 mg Citalopram Hydrobromide (Celexa) 20 mg PO QAM [facility] Stop: 11/04/18 08:59 Last Admin: 10/07/18 08:17 Dose: 20 mg Cyanocobalamin (Vitamin B-12) 1,000 mcg PO DAILY [facility] Stop: 11/04/18 08:59 Last Admin: 10/07/18 08:17 Dose: 1,000 mcg Enoxaparin Sodium (Lovenox) 40 mg SQ Q24H [facility] Stop: 11/03/18 22:59 Last Admin: 10/06/18 21:37 Dose: 40 mg Gabapentin (Neurontin) 300 mg PO HS [facility] Stop: 11/04/18 20:59 Last Admin: 10/06/18 21:36 Dose: 300 mg Heparin Sodium (Porcine) (Heparin Sod 100 Unit/Ml Flush) 5 ml FLUSH PRN [facility] Stop: 11/05/18 15:44 Last Admin: 10/07/18 17:42 Dose: 5 ml Methylprednisolone 40 mg/ (Syringe) 0.64 mls @ 1.5 mls/min IV Q6H [facility] Stop: 11/04/18 00:00 Last Admin: 10/07/18 17:41 Dose: 1.5 mls/min Lubiprostone (Amitiza) 8 mcg PO BID [facility] Stop: 11/04/18 08:59 Last Admin: 10/07/18 08:17 Dose: 8 mcg Miscellaneous (Order Awaiting Action) 1 ea N/A QS [facility] Stop: 11/04/18 15:59 Last Admin: 10/07/18 15:46 Dose: Not Given Ondansetron HCl (Zofran) 4 mg IV Q4H PRN PRN Reason: Nausea Stop: 11/03/18 22:36 Last Admin: 10/07/18 20:03 Dose: 4 mg Oxycodone/Acetaminophen (Percocet 5mg/325mg) 1 tab PO Q4H PRN PRN Reason: Pain Stop: 10/18/18 22:36 Last Admin: 10/07/18 08:22 Dose: 1 tab Pantoprazole Sodium (Protonix) 40 mg PO QAM [facility] Stop: 11/04/18 08:59 Last Admin: 10/07/18 08:17 Dose: 40 mg Fluticasone/Salmeterol (Advair Diskus 500/50) 1 puffs INH BID [facility] Stop: 11/04/18 09:59 Last Admin: 10/07/18 08:17 Dose: 1 puffs Temazepam (Restoril) 30 mg PO HS PRN PRN Reason: Insomnia Stop: 11/03/18 22:36 Last Admin: 10/06/18 23:49 Dose: 30 mg Triamcinolone Acetonide (Nasacort) 2 sprays BOYD DAILY [facility] Stop: 11/04/18 08:59 Last Admin: 10/07/18 08:18 Dose: 2 sprays Resident Activity Tracking Resident Involvement: Resident Care Provided Care Provided: Adult Hospital Medicine
[2018-10-07] MEDS: GABAPENTIN 300 MG CAP PO SCH (21:01)
[2018-10-08] MEDS: methylPREDNISolone 40 MG in SYRINGE 0 ML IV SCH ×3 (00:01→12:15)
[2018-10-08] MEDS: ENOXAPARIN INJ 40 MG/0.4 ML SYR SQ SCH (00:01)
[2018-10-08] MEDS: ONDANSETRON INJ 2 MG/ML 2 ML VIAL IV PRN ×3 (00:09→11:46)
[2018-10-08] MEDS: TEMAZEPAM 15 MG CAPSULE PO PRN (00:09)
[2018-10-08] MEDS: ALBUT/IPRATROP 3MG/0.5MG NEB 3 ML VIAL NEB SCH ×2 (07:24→11:06)
[2018-10-08] MEDS: HEPARIN 100 UNIT/ML 5ML FLUSH FLUSH SCH ×3 (07:36→12:15)
[2018-10-08] MEDS: FLUTICASONE/SALMETEROL (ADVAIR) 500/50 INH 14 PUFF INH SCH (07:39)
[2018-10-08] MEDS: AZITHROMYCIN 250 MG TAB PO SCH (07:40)
[2018-10-08] MEDS: LUBIPROSTONE 8 MCG CAP PO SCH (07:40)
[2018-10-08] MEDS: CYANOCOBALAMIN 500 MCG TABLET (VITAMIN B-12) PO SCH (07:40)
[2018-10-08] MEDS: CITALOPRAM 20 MG TAB PO SCH (07:40)
[2018-10-08] MEDS: PANTOprazole 40 MG TAB PO SCH (07:40)
[2018-10-08] MEDS: TRIAMCINOLONE ACET NASAL SPRAY 10.8ML BTL NAE SCH (07:41)
--- NOTE | 2018-10-08 11:40 | XRay Report ---
XR abdomen 2V w PA chest HISTORY: 58 years-old Male Constipation acute abdominal pain with constipation COMPARISON: CT abdomen pelvis and chest radiograph 10/04/2018, CTA chest 09/20/2018. TECHNIQUE: PA view of the chest with erect and supine views of the abdomen FINDINGS: Cardiac mediastinal and hilar silhouettes are within normal limits. Stable positioning of left subcla vian [id number] catheter. Chronic interstitial coarsening noted about the perihilar distributions and lung bases suggestive of areas of fibrosis. Advanced emphysema. Previously noted pulmonary nodule comparison comparison chest CT. No pneumothorax, pleural effusion or overt pulmonary edema. Degenera tive changes of the shoulders and spine. Cholecystectomy. Bowel gas pattern is nonobstructive. Moderate formed stool noted about the right hem icolon and hepatic flexure. Phleboliths of the pelvis. No definite urolith. Mild gaseous distention o f the stomach. IMPRESSION: 1. Emphysema with chronic fibrosis. 2. Ill-defined nodular opacities about the lateral right midlung better seen on comparison chest CT. 3. Nonobstructive bowel gas pattern. 4. Moderate volume of formed stool about the right hemicolon and hepatic flexure. The above report was generated using voice recognition software. It may contain grammatical, syntax o r spelling errors. Electronically signed by: Nick Biggs M.D. 10/08/2018 11:39 AM
--- NOTE | 2018-10-09 20:29 | Discharge Summary ---
Date of Service October 09, 2018 Admission HPI Per Admitting Provider 58-year-old male presents with acute nausea, vomiting, diarrhea beginning earlier on day of admission. - He notes vomiting x 10+ episodes and multiple episodes of watery, non-bloody diarrhea. He says that his daughter and grandkids were visiting over the past couple of days and have had the exact same symptoms. He also says that he gets episodes of N/V/D at least a couple of times a year and generally they self resolved. However this time he says he wanted to get ahead of it due to being [place]. He says he has abdominal cramping that occurs over the past few years, perhaps a little bit worse in the past day. He denies any fevers but says he had sweats. No other acute complaints. - On review of systems, patient says he has a history of COPD and that he has baseline shortness of breath. Says perhaps this is a little worse over the past day or so. Denies any chest pain. Is not on any home oxygen. Admission Exam (Per Admitting) Constitutional GENERAL: Awake, alert, well-appearing, occasional cough, in no acute distress HENT: Normocephalic, atraumatic. Oropharynx unremarkable. EYES: Normal conjunctiva. Sclera non-icteric. NECK: Inspection normal. Non-tender. Supple and full ROM. No nuchal rigidity. CARDIAC: +S1S2 regular tachycardia, no murmurs. RESPIRATORY: Decreased breath sounds with mild expiratory wheezing throughout. Normal respiratory effort. Nasal cannula oxygen in place. GI: +BS, soft, non-distended. Very mild diffuse tenderness to palpation, no tenderness to percussion, no rebound or guarding. EXTREMITIES: No pedal edema or calf tenderness. Moving all extremities naturally and easily. Contusions to the left arm. NEURO: No gross neuro deficits. Lines: Left upper chest [employer] accessed. Discharge Data Consultations 10/04/18 20:27 ED Decision to Admit Stat Hospital Course (1) Nausea vomiting and diarrhea: 50-year-old male was admitted on 04 October 2018 for nausea, vomiting, diarrhea and hypoxia. Nausea, vomiting, diarrhea: Acute onset x 1 day prior to admission. Likely acute viral gastroenteritis given sick family contacts with similar symptoms ( daughter and her children). HD stable. CT abdomen pelvis with no acute changes. Non-peritoneal improving abdominal exam. - Rapid flu negative - Received IVFs - Zofran for nausea as needed every 4 hours --> Discharged with 4 day course of Zofran - Pain control: On percocet 1 tab Q4H PRN for chronic back pain hx and tylenol prn --> Discharged with 13 tablets of Percocet Hypoxia, COPD exacerbation: Has has baseline sob due to severe COPD but reports worsening sob in the setting of recent viral illness. No chronic O2 dependence. CXR notable for emphysema. Now on RA - At home is on Advair, Combivent, Incruse Ellipta, Nasacort, levalbuterol, and daily prednisone 10 mg. - continued advair, incruse ellipta and nasacort only others held -On methylprednisolone 40 mg q6h, duo nebs q6h scheduled, albuterol prn - Discharged on Prednisone Taper: 40mg x 2 days, 30mg x 2 days, 20mg x 2 days, 10mg x 2 days -Started on Zithromax day 2 given persistent cough and shortness of breath - AM EKG for concern of QT prolongation in the setting of being on zofran as well; QTc 428 - 88 NSR - Discharged on 2 more days of Azithromycin Constipation Patient has not had additional bowel movement since admission - History of IBS well controlled with home medications - Given Miralax prior to discharge and instructed to take 1/2 cap twice daily - Abdominal X-Ray showed moderate stool load with no obstruction 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 Says Dr. Langley is [facility] about every 6 months. Lumbar back pain: At home on Percocet continued Vitamin B12 deficiency: At home on vitamin B12. Continued. Neuropathy: At home is on gabapentin. Continued. GERD: At home is on pantoprazole. Continued. Avascular necrosis of both hips. Insomnia: At home is on restoril. Continued. Depression: At home is on citalopram. Continued. GENERAL: Awake, alert, well-appearing, HENT: Normocephalic, atraumatic. EYES: Normal conjunctiva. Sclera non-icteric. NECK: Supple. No nuchal rigidity. RESPIRATORY: Clear to auscultation. CARDIAC: Regular rate, normal rhythm. Extremities warm and well perfused. Pulses equal. ABDOMEN: Soft, non-distended. No tenderness to palpation. No rebound or guarding. No masses. RECTAL: Deferred. MUSCULOSKELETAL: Chest examination reveals no tenderness. The back is symmetrical on inspection without obvious abnormality. There is no CVA tenderness to palpation. No joint edema. LOWER EXTREMITIES: Calves are equal size bilaterally and non-tender. No edema. No discoloration. NEURO: Normal sensorium. No sensory or motor deficits noted. SKIN: No rash or jaundice noted. (2) Hypoxia: (3) Acute exacerbation of chronic obstructive pulmonary disease (COPD): (4) History of lung cancer: (5) Lumbar back pain: (6) Vitamin B12 deficiency: (7) Neuropathy: (8) GERD (gastroesophageal reflux disease): (9) Avascular necrosis of bones of both hips: (10) Insomnia: (11) Depression: Resident Activity Tracking Resident Involvement: Resident Care Provided Care Provided: Adult Hospital Medicine
== END 2018-10-08 15:16 | disposition home or self-care (01) | DRG 191 ==
LOC: ED 15:38 → SUATTDRO 21:50 → 4E 21:50

== ENCOUNTER 2020-07-27 16:36 | Observation (INO) ==
[2020-07-27 17:58] LABS: Basophils # (auto) 0.04 K/uL (0-0.2); Basophils % (auto) 0.4 %; Eosinophils # (auto) 0.16 K/uL (0-0.5); Eosinophils % (auto) 1.7 %; Hemoglobin 16.5 g/dL (14.0-18.0); Immature Granulocytes # (auto) 0.05 K/uL (0.00-0.02); Immature Granulocytes % (auto) 0.5 %; Lymphocytes # (auto) 1.36 K/uL (1.2-3.4); Lymphocytes % (auto) 14.7 %; Mean Corpuscular Hemoglobin 29.3 pg (25-34); Mean Corpuscular Hgb Conc 33.7 g/dL (32-36); Mean Platelet Volume 9.5 fL (7.4-10.4); Monocytes # (auto) 0.84 K/uL (0.11-0.59); Monocytes % (auto) 9.1 %; Neutrophils # (auto) 6.81 K/uL (1.4-6.5); Neutrophils % (auto) 73.6 %; Platelet Count 236 K/uL (130-400); RDW Coefficient of Variation 15.6 % (11.5-14.5); Red Blood Count 5.63 M/uL (4.7-6.1); White Blood Count 9.26 K/uL (4.8-10.8)
[2020-07-27 18:18] LABS: BUN Creatinine Ratio 6.6 (10-20); Creatinine Clr Calc Pharmacy 68.8 ml/min; Est GFR (Non-African American) 60.4; Potassium 3.6 mmol/L (3.5-5.1)
[2020-07-27 18:21] LABS: Albumin Globulin Ratio 0.9 (0.9-2); Bilirubin,Total 1.2 mg/dl (0.2-1); Globulin 3.5 gm/dl (2.5-4.0); Total Protein 6.5 gm/dl (6.4-8.2)
[2020-07-27] MEDS ORDERED: SODIUM CHLORIDE 0.9% 1000ML 1,000 ML IV ONE (18:27)
[2020-07-27] MEDS ORDERED: ONDANSETRON INJ 2 MG/ML 2 ML VIAL IV STA ×2 (18:27→22:07)
--- NOTE | 2020-07-27 18:32 | Emergency Department Note ---
Impression & Plan Lower back pain, Tachycardia, Total body pain, Weakness, Medication reaction ED Provider Note NAME: NATY PERRY AGE: 60 SEX: M : 1960 ARRIVES VIA: Walk-In INFORMANT: [Patient] ED PROVIDER(S): [Jorge Alberto Beasley MD] CHIEF COMPLAINT: Back pain, body numbness HISTORY OF PRESENT ILLNESS: The patient is a 60-year-old male with a history of stage IV lung cancer. 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 Yesterday, he finished the wean. Today, he has all over body pain, his legs feel numb, his low back is quite sore. The pain is a 10/10. He feels weak to walk but he has not fallen. His urine is dark in color and he is concerned he could be dehydrated. There has been no increased shortness of breath, he has not had fever, no cough. No abdominal pain, vomiting or diarrhea. REVIEW OF SYSTEMS: See HPI for pertinent positives and negatives. A total of ten systems were reviewed and were otherwise negative. PMHx/PSHx: See Below SOCIAL HISTORY: See Below. PHYSICAL EXAM: GENERAL: Patient is in no acute distress. HEENT: No acute trauma, normocephalic atraumatic, mucous membranes moist, no nasal congestion, no scleral icterus. NECK: No stridor, no adenopathy, no meningismus, trachea is midline. LUNGS: Minimal breath sounds on the left, the right lung seems clear, no res piratory distress. HEART: Without murmurs gallops or rubs, mildly tachycardic, regular rhythm. ABDOMEN: Soft, nontender, bowel sounds positive, no hernias, no peritonitis. EXTREMITIES: No cyanosis or edema, full range of motion of all the joints without pain or difficulty, no signs for acute trauma. NEUROLOGIC: Oriented x 3, no acute motor or sensory deficits, no focal weakness. 3/4 patellar and Achilles reflexes bilaterally. SKIN: No rash, no jaundice, no diaphoresis. Back: Tender over the entire lumbar spine in the lower thoracic spine, no step- offs. DIFFERENTIAL DIAGNOSIS: Infection, dehydration, metabolic abnormality, hypo/hyperglycemia, metastatic disease, medication reaction, withdrawal, electrolyte disturbance, anemia, hypoxia, cardiac sources, intracerebral event, toxicologic, neurologic, as well as other pathologies. EMERGENCY DEPARTMENT COURSE/PROCEDURES: ECG: Indication was tachycardia. The ECG shows a sinus tachycardia with a rate of 109. There is no ST elevation, no PVCs. The QTc is 433. Continuous Cardiac Monitoring: An order was placed for continuous cardiac monitoring. The monitor shows a rate of 105 with sinus tachycardia. MEDICAL DECISION MAKING: There is no leukocytosis or concerning anemia. There is a normal platelet count. No significant electrolyte abnormality or kidney failure. There were few subtle liver enzyme elevations. The patient appeared to be in a euthyroid state. ECG shows a sinus tachycardia, no acute ischemia. Cardiac enzyme testing x1 is not consistent with acute cardiac injury. Urinalysis does not show evidence for infection. Lumbar and thoracic CT scans do not show any evidence for bony metastasis or for acute bony fracture. On exam, the patient had strong reflexes in both lower extremities. He did appear dehydrated clinically. The patient received IV saline, 1 L. He received a small 500 cc saline bolus in addition. He received IV Dilaudid for pain, IV Zofran for nausea. He was given a small dose of IV Solu-Medrol. The patient's feeling somewhat better. He did become hypoxic though after his pain medication administration. He required O2 supplementation. I think the patient's main issue is withdrawal from his prednisone. He tapered off this medication. He had been on the same dose for years. His symptoms all started as he got to the end of his prednisone taper. Hydration, monitoring, symptom control is warranted. I do think a hospital stay is warranted. I am concerned about a fall at home. He is quite weak. I spoke to the casework manager, I talked to the patient. The on-call hospitalist was consulted. Past Med/Surg History Medical History Anxiety Asthma Constipation GERD (gastroesophageal reflux disease) H/O pneumothorax History of lung cancer DX 2012-LEFT LOBE/NO SURGERY/RADIATION/CHEMO History of pulmonary embolus (PE) 2017-NO ISSUES SINCE Hypertension NO MEDS Neuropathy Pulmonary emphysema Severe chronic obstructive pulmonary disease F/U DR PARRA SOB (shortness of breath) on exertion Stomach ulcer HX -UNDER CONTROL Surgical History History of colonoscopy History of esophagogastroduodenoscopy (EGD) History of lung surgery STENT TO [facility]-2023? History of vascular access device PORT PLACEMENT-UPPER LEFT IN PLACE S/P laparoscopic cholecystectomy Family History Mother Coronary heart disease Father , age 90 COPD (chronic obstructive pulmonary disease) Diabetes Lung cancer Aunt Cancer Uncle Diabetes Brother Hypertension Other No family history of bleeding disorder Social History Smoking Status: Former smoker packs per day: 1; Cigarettes Per Day: does smoke occ cigar when golfing; Second Hand Exposure: Yes; Tobacco Cessation Education Requested by Patient: No Hx Alcohol Use: No Hx Substance Use: No Preferred Language: Urdu Communication Ability: Effective Visual Impairment: No Limitations Hearing Ability: Normal Ux Visual Designer Required: No Beliefs That Will Affect Care: None marital status: Single marital status details: but has 1 daughter Current Living Situation: Alone Current Living Situation Comment: brother stays with pt periodically current occupational status: employed and disabled current occupation: 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 Other Information That Helps Us Care for You: No Feels Safe at Home: Yes Safety Concerns: Feels Safe At This Time Assistive Devices: Denture - Upper and Denture - Lower Allergies Allergies Allergy/AdvReac Type Severity Reaction Status Date / Time No Known Drug Allergies Allergy Verified 07/27/20 21:42 Home Meds Home Medications Medication Instructions Recorded Confirmed temazepam 30 mg PO HS PRN 08/05/18 07/27/20 ipratropium 20 mcg-albuterol 100 1 puff INHALATION QID PRN 08/09/19 07/27/20 mcg/actuation mist for inhalation cyanocobalamin (vitamin B-12) 2,000 mcg PO DAILY 05/14/20 07/27/20 [Vitamin B-12] azelastine 2 spray INTNAS BID PRN 07/27/20 07/27/20 fluticasone furoate-vilanterol 1 inh INHALATION QAM 07/27/20 07/27/20 [Breo Ellipta] Previous Rx's Medication Instructions Recorded ondansetron HCl 4 mg tablet 4 mg PO DAILY PRN #30 tab 12/14/19 pantoprazole 40 mg tablet,delayed 40 mg PO QAM #90 tab 12/19/19 release levalbuterol HCl 1.25 mg/3 mL 1.25 mg INHALATION .COMPLEX PRN 02/07/20 solution for nebulization #1620 ml lubiprostone 8 mcg capsule 8 mcg PO BID #60 cap 04/20/20 gabapentin 600 mg tablet 600 mg PO TID #90 tab 06/15/20 azithromycin 250 mg tablet 250 mg PO 3XWK #15 tab 07/09/20 umeclidinium 62.5 mcg/actuation 1 inh INH QPM #3 inhaler 07/09/20 blister powder for inhalation albuterol sulfate 2.5 mg INHALATION Q4H PRN #180 ml 07/19/20 ipratropium bromide 0.02 % 2.5 ml INHALATION Q4H PRN #180 ml 07/19/20 solution for inhalation Results & Data (ED) Vital Signs Vital Signs - 24 hr 07/27/20 16:42 07/27/20 16:50 07/27/20 17:14 Temperature 36.9 C Temperature Source Oral Pulse Rate 127 H 109 H 109 H Pulse Rate from SpO2 Sensor 110 H 108 H Pulse Rhythm Regular Pulse Strength Normal Respiratory Rate 26 H 16 14 Respiratory Effort / Characteristics Grunting Labored Respiratory Pattern See-Saw Blood Pressure 112/72 110/78 Blood Pressure Mean 85 83 Blood Pressure Position Sitting Pulse Oximetry 96 94 95 Oxygen Delivery Method Room Air Room Air Oxygen Flow Rate Sepsis Recent Fever Within 48 Hours No Sepsis New/Unexplained Change in Mental Status No Sepsis Action Taken by Nursing No Action Required 07/27/20 17:15 07/27/20 17:16 07/27/20 17:30 Temperature Temperature Source Pulse Rate 112 H 112 H 104 H Pulse Rate from SpO2 Sensor 112 H 113 H 108 H Pulse Rhythm Pulse Strength Respiratory Rate 20 22 26 H Respiratory Effort / Characteristics Respiratory Pattern Blood Pressure 113/83 114/76 Blood Pressure Mean 86 80 Blood Pressure Position Pulse Oximetry 94 95 94 Oxygen Delivery Method Room Air Room Air Room Air Oxygen Flow Rate Sepsis Recent Fever Within 48 Hours Sepsis New/Unexplained Change in Mental Status Sepsis Action Taken by Nursing 07/27/20 18:00 07/27/20 18:30 07/27/20 18:42 Temperature 36.4 C L Temperature Source Oral Pulse Rate 109 H 112 H Pulse Rate from SpO2 Sensor 109 H 102 H Pulse Rhythm Pulse Strength Respiratory Rate 20 20 Respiratory Effort / Characteristics Respiratory Pattern Blood Pressure 103/80 Blood Pressure Mean 87 Blood Pressure Position Pulse Oximetry 95 94 Oxygen Delivery Method Room Air Room Air Oxygen Flow Rate Sepsis Recent Fever Within 48 Hours Sepsis New/Unexplained Change in Mental Status Sepsis Action Taken by Nursing 07/27/20 19:02 07/27/20 19:30 07/27/20 20:00 Temperature Temperature Source Pulse Rate 106 H 105 H 107 H Pulse Rate from SpO2 Sensor 106 H 105 H 107 H Pulse Rhythm Pulse Strength Respiratory Rate 21 16 17 Respiratory Effort / Characteristics Respiratory Pattern Blood Pressure 112/78 118/81 114/82 Blood Pressure Mean 85 86 89 Blood Pressure Position Pulse Oximetry 93 96 94 Oxygen Delivery Method Room Air Room Air Room Air Oxygen Flow Rate Sepsis Recent Fever Within 48 Hours Sepsis New/Unexplained Change in Mental Status Sepsis Action Taken by Nursing 07/27/20 20:30 07/27/20 21:00 Temperature Temperature Source Pulse Rate 108 H 102 H Pulse Rate from SpO2 Sensor 108 H 102 H Pulse Rhythm Pulse Strength Respiratory Rate 20 18 Respiratory Effort / Characteristics Respiratory Pattern Blood Pressure 117/78 104/89 Blood Pressure Mean 94 95 Blood Pressure Position Pulse Oximetry 92 93 Oxygen Delivery Method Room Air Nasal Cannula Oxygen Flow Rate 3 Sepsis Recent Fever Within 48 Hours Sepsis New/Unexplained Change in Mental Status Sepsis Action Taken by Group Home Medications Current Medication List: was personally reviewed by me Laboratory Data Attestation: I reviewed the patient's lab results. Result diagrams: 07/27/20 17:45 07/27/20 17:45 Lab Results 07/27/20 07/27/20 07/27/20 Range/Units 17:45 17:45 17:45 WBC 9.26 (4.8-10.8) K/uL RBC 5.63 (4.7-6.1) M/uL Hgb 16.5 (14.0-18.0) g/dL Hct 49.0 (42-52) % MCV 87.0 (80-100) fL MCH 29.3 (25-34) pg MCHC 33.7 (32-36) g/dL RDW Std Deviation 50.0 H (36.4-46.3) fL RDW Coeff of Estela 15.6 H (11.5-14.5) % Plt Count 236 (130-400) K/uL MPV 9.5 (7.4-10.4) fL Immature Gran % (Auto) 0.5 % Neut % (Auto) 73.6 % Lymph % (Auto) 14.7 % Beckham % (Auto) 9.1 % Eos % (Auto) 1.7 % Baso % (Auto) 0.4 % Neut # (Auto) 6.81 H (1.4-6.5) K/uL Lymph # (Auto) 1.36 (1.2-3.4) K/uL Beckham # (Auto) 0.84 H (0.11-0.59) K/uL Eos # (Auto) 0.16 (0-0.5) K/uL Baso # (Auto) 0.04 (0-0.2) K/uL Immature Gran # (Auto) 0.05 H (0.00-0.02) K/uL Sodium 139 (136-145) mmol/L Potassium 3.6 (3.5-5.1) mmol/L Chloride 109 H (98-107) mmol/L Carbon Dioxide 26 (21-32) mmol/L Anion Gap 4.0 (3-11) BUN 9 (7-18) mg/dl Creatinine 1.28 (0.6-1.4) mg/dl Est Cr Clr Drug Dosing 68.8 ml/min Est GFR ( Amer) 70.0 Est GFR (Non-Af Amer) 60.4 BUN/Creatinine Ratio 6.6 L (10-20) Glucose 132 H (70-99) mg/dl Calcium 9.0 (8.5-10.1) mg/dl Phosphorus 2.4 L (2.5-4.9) mg/dl Magnesium 2.3 (1.8-2.4) mg/dl Total Bilirubin 1.2 H (0.2-1) mg/dl AST 7 L (15-37) U/L ALT 25 (12-78) U/L Alkaline Phosphatase 87 (45-117) U/L Total Creatine Kinase 73 (39-308) U/L Troponin I < 0.015 (0-0.045) ng/ml Total Protein 6.5 (6.4-8.2) gm/dl Albumin 3.0 L (3.4-5.0) gm/dl Globulin 3.5 (2.5-4.0) gm/dl Albumin/Globulin Ratio 0.9 (0.9-2) TSH 2.220 (0.300-4.500) uIu/ml Urine Color Urine Appearance (Clear) Urine pH (4.5-7.5) Ur Specific [place] (1.000-1.030) Urine Protein (Negative) Urine Glucose (UA) (Negative) Urine Ketones (Negative) Urine Blood (Negative) Urine Nitrite (Negative) Urine Bilirubin (Negative) Urine Urobilinogen (Negative) Ur Leukocyte Esterase (Negative) Urine WBC (Auto) (0-5) /hpf Urine RBC (Auto) (0-4) /hpf U Hyaline Cast (Auto) (0-5) /lpf U Epithel Cells (Auto) (0-5) /lpf Urine Bacteria (Auto) (Negative) 07/27/20 Range/Units 18:39 WBC (4.8-10.8) K/uL RBC (4.7-6.1) M/uL Hgb (14.0-18.0) g/dL Hct (42-52) % MCV (80-100) fL MCH (25-34) pg MCHC (32-36) g/dL RDW Std Deviation (36.4-46.3) fL RDW Coeff of Estela (11.5-14.5) % Plt Count (130-400) K/uL MPV (7.4-10.4) fL Immature Gran % (Auto) % Neut % (Auto) % Lymph % (Auto) % Beckham % (Auto) % Eos % (Auto) % Baso % (Auto) % Neut # (Auto) (1.4-6.5) K/uL Lymph # (Auto) (1.2-3.4) K/uL Beckham # (Auto) (0.11-0.59) K/uL Eos # (Auto) (0-0.5) K/uL Baso # (Auto) (0-0.2) K/uL Immature Gran # (Auto) (0.00-0.02) K/uL Sodium (136-145) mmol/L Potassium (3.5-5.1) mmol/L Chloride (98-107) mmol/L Carbon Dioxide (21-32) mmol/L Anion Gap (3-11) BUN (7-18) mg/dl Creatinine (0.6-1.4) mg/dl Est Cr Clr Drug Dosing ml/min Est GFR ( Amer) Est GFR (Non-Af Amer) BUN/Creatinine Ratio (10-20) Glucose (70-99) mg/dl Calcium (8.5-10.1) mg/dl Phosphorus (2.5-4.9) mg/dl Magnesium (1.8-2.4) mg/dl Total Bilirubin (0.2-1) mg/dl AST (15-37) U/L ALT (12-78) U/L Alkaline Phosphatase (45-117) U/L Total Creatine Kinase (39-308) U/L Troponin I (0-0.045) ng/ml Total Protein (6.4-8.2) gm/dl Albumin (3.4-5.0) gm/dl Globulin (2.5-4.0) gm/dl Albumin/Globulin Ratio (0.9-2) TSH (0.300-4.500) uIu/ml Urine Color Yellow Urine Appearance Clear (Clear) Urine pH 5.0 (4.5-7.5) Ur Specific [place] 1.015 (1.000-1.030) Urine Protein Negative (Negative) Urine Glucose (UA) Negative (Negative) Urine Ketones Negative (Negative) Urine Blood Trace H (Negative) Urine Nitrite Negative (Negative) Urine Bilirubin Negative (Negative) Urine Urobilinogen Positive H (Negative) Ur Leukocyte Esterase Trace H (Negative) Urine WBC (Auto) 1-5 (0-5) /hpf Urine RBC (Auto) 0-4 (0-4) /hpf U Hyaline Cast (Auto) 1-5 (0-5) /lpf U Epithel Cells (Auto) 5-10 H (0-5) /lpf Urine Bacteria (Auto) Negative (Negative) Administered Medications Enoxaparin Sodium (Enoxaparin Inj 40 Mg/0.4 Ml Syr) 40 mg SQ QPM [facility] Stop: 08/26/20 22:59 Last Admin: 07/27/20 23:26 Dose: 40 mg Documented by: [id number] Lactated Ringer's (Lr) 1,000 mls @ 80 mls/hr IV .[id number] [facility] Stop: 07/28/20 23:35 Last Admin: 07/27/20 22:50 Dose: 80 mls/hr Documented by: [id number] Ondansetron HCl (Ondansetron Inj 2 Mg/Ml 2 Ml Vial) 4 mg IV Q6H PRN PRN Reason: Nausea Stop: 08/26/20 22:35 Last Admin: 07/27/20 23:59 Dose: 4 mg Documented by: [id number] Discontinued Medications Hydromorphone HCl (Hydromorphone Inj 1 Mg/Ml Syringe) 1 mg IV Q15M PRN PRN Reason: Pain Stop: 08/10/20 18:26 Last Admin: 07/27/20 20:00 Dose: 1 mg Documented by: [id number] Admin: 07/27/20 19:04 Dose: 1 mg Documented by: [id number] Admin: 07/27/20 18:38 Dose: 1 mg Documented by: [id number] Hydromorphone HCl (Hydromorphone Inj 1 Mg/Ml Syringe) 1 mg IV NOW STA Stop: 07/27/20 21:03 Last Admin: 07/27/20 21:25 Dose: 1 mg Documented by: [id number] Sodium Chloride (Nss 1000ml) 1,000 mls @ 999 mls/hr IV .Q1H1M ONE Stop: 07/27/20 19:27 Last Infusion: 07/27/20 19:39 Dose: 0 mls/hr Documented by: [id number] Admin: 07/27/20 18:38 Dose: 999 mls/hr Documented by: [id number] Sodium Chloride (Nss 1000ml) 500 mls @ 999 mls/hr IV .Q31M ONE Stop: 07/27/20 20:32 Last Infusion: 07/27/20 20:58 Dose: 0 mls/hr Documented by: [id number] Admin: 07/27/20 20:27 Dose: 999 mls/hr Documented by: [id number] Prochlorperazine 10 mg/ (Syringe) 10 mls @ 5 mls/min IV ONE ONE Stop: 07/28/20 00:46 Last Admin: 07/28/20 00:42 Dose: 5 mls/min Documented by: [id number] Ioversol (Ioversol 100ml) 93 ml IV ONCE ONE Stop: 07/27/20 19:00 Last Admin: 07/27/20 19:00 Dose: 1 ml Documented by: [id number] Methylprednisolone (Methylprednisolone 40 Mg/Ml Vial) 40 mg IV NOW STA Stop: 07/27/20 20:02 Last Admin: 07/27/20 20:30 Dose: 40 mg Documented by: [id number] Ondansetron HCl (Ondansetron Inj 2 Mg/Ml 2 Ml Vial) 4 mg IV NOW STA Stop: 07/27/20 18:28 Last Admin: 07/27/20 18:38 Dose: 4 mg Documented by: [id number] Ondansetron HCl (Ondansetron Inj 2 Mg/Ml 2 Ml Vial) Confirm Administered Dose 4 mg .ROUTE .STK-MED ONE Stop: 07/27/20 22:00 Last Admin: 07/27/20 22:12 Dose: Not Given Documented by: [id number] Ondansetron HCl (Ondansetron Inj 2 Mg/Ml 2 Ml Vial) 4 mg IV NOW STA Stop: 07/27/20 22:08 Last Admin: 07/27/20 22:12 Dose: 4 mg Documented by: [id number] Imaging Data Radiologist's Impression: CT thoracic spine w con, CT lumbar spine w con HISTORY: back pain, cancer TECHNIQUE: Multiaxial CT images of the thoracic and lumbar spine were performed without contrast and reformatted in the sagittal and coronal plane. COMPARISON STUDY: Chest CT 07/07/2019. Lumbar spine CT 08/05/2018. FINDINGS: Thoracic spine CT: Partially visualized catheter terminates in the SVC. Paraspinal soft tissues are within normal limits. No significant central canal narrowing by CT technique. Emphysema. No change in the right upper lobe irregular/spiculated density best in image 39. No fracture or subluxation within the thoracic spine. Disc spaces are preserved for age. No suspicious lytic or blastic osseous lesions. Lumbar spine CT: No fracture or subluxation. Mild disc space narrowing at L4-L5. No suspicious lytic or blastic osseous lesions. The visualized sacrum is intact. Small broad- based posterior disc bulge at L5-S1. There is a small focal left paracentral disc protrusion at L4-L5. IMPRESSION: 1. No fracture or subluxation within the thoracic or lumbar spine. 2. No suspicious lytic or blastic osseous lesions. Discharge Plan Visit Data Chief Complaint: Illness Stated Complaint: NUMBNESS/PAIN IN LE ED Provider: Jorge Alberto Beasley Discharge Problem: Lower back pain, Tachycardia, Total body pain, Weakness, Medication reaction Patient Disposition: Admitted As Inpatient Condition: Fair Discharge Instructions Interventions: ED Discharge Assessment Last Done: 07/27/20 21:56 Discharge Problem: Lower back pain Qualifiers: Chronicity: acute Back pain laterality: midline Sciatica presence: without sciatica Qualified Code(s): M54.5 - Low back pain Medication reaction Qualifiers: Encounter type: initial encounter Qualified Code(s): T50.905A - Adverse effect of unspecified drugs, medicaments and biological substances, initial encounter
[2020-07-27] MEDS: HYDROmorphone INJ 1 MG/ML SYRINGE IV PRN ×3 (18:38→20:00)
[2020-07-27 18:51] LABS: Appearance Urine Clear (Clear); Bacteria Urine Automated Negative (Negative); Bilirubin Urine Negative (Negative); Blood Urine Trace (Negative); Color Urine Yellow; Glucose Urine UA Negative (Negative); Ketones Urine Negative (Negative); Leukocyte Esterase Urine Trace (Negative); Nitrite Urine Negative (Negative); Protein Urine Negative (Negative); RBC Urine Automated 0-4 /hpf (0-4); Specific Gravity Urine 1.015 (1.000-1.030); Urobilinogen Urine Positive (Negative)
[2020-07-27] MEDS ORDERED: IOVERSOL 100ml IV ONE (18:59)
--- NOTE | 2020-07-27 19:33 | CT Scan Report ---
CT thoracic spine w con, CT lumbar spine w con HISTORY: back pain, cancer TECHNIQUE: Multiaxial CT images of the thoracic and lumbar spine were performed without contrast and reformatted in the sagittal and coronal plane. COMPARISON STUDY: Chest CT 07/07/2019. Lumbar spine CT 08/05/2018. FINDINGS: Thoracic spine CT: Partially visualized catheter terminates in the SVC. Paraspinal soft tissues are w ithin normal limits. No significant central canal narrowing by CT technique. Emphysema. No change in the right upper lobe irregular/spiculated density best in image 39. No fracture or subluxation within the thoracic spine. Disc spaces are preserved for age. No suspicious lytic or blastic osseous lesion s. Lumbar spine CT: No fracture or subluxation. Mild disc space narrowing at L4-L5. No suspicious lytic or blastic osseou s lesions. The visualized sacrum is intact. Small broad-based posterior disc bulge at L5-S1. There is a small focal left paracentral disc protrusion at L4-L5. IMPRESSION: 1. No fracture or subluxation within the thoracic or lumbar spine. 2. No suspicious lytic or blastic osseous lesions. ACT 112: Negative or not required by law. Electronically signed by: Lalo Santana M.D. 07/27/2020 7:32 PM
--- NOTE | 2020-07-27 19:34 | XRay Report ---
XR chest 1V portable HISTORY: Shortness of breath. COMPARISON: Chest 09/30/2019. FINDINGS: No change in the emphysema and chronic interstitial thickening. Left subclavian Port-A-Cath terminates at the SVC. No pneumothorax. No pleural effusions. The heart is normal in size. No new fo shaka lung consolidations to suggest pneumonia. No evidence for pulmonary edema. IMPRESSION: Chronic interstitial thickening and emphysema is again noted. No acute process within the chest. ACT 112: Negative or not required by law. Electronically signed by: Lalo Santana M.D. 07/27/2020 7:33 PM
[2020-07-27 19:35] LABS: Magnesium 2.3 mg/dl (1.8-2.4); Troponin I < 0.015 ng/ml (0-0.045)
[2020-07-27] MEDS ORDERED: SODIUM CHLORIDE 0.9% 1000ML 500 ML IV ONE (20:02)
[2020-07-27] MEDS ORDERED: HYDROmorphone INJ 1 MG/ML SYRINGE IV STA (21:02)
--- NOTE | 2020-07-27 21:21 | History & Physical Report ---
Date of Service July 27, 2020 Assessment & Plan (1) Lower back pain: Etiology unclear. Concern for steroid withdrawal. Presently hemodynamically stable, electrolytes stable -Resume Prednisone 5 -Tylenol PRN Present on Admission?: Yes (2) Total body pain: (3) COPD (chronic obstructive pulmonary disease): Stable respiratory status. Adequate oxygenation on room air. -Umeclidinium -Levalbuterol -DuoNebs Present on Admission?: Yes (4) GERD (gastroesophageal reflux disease): Chronic. Stable -Protonix 40mg po daily F/E/N - LR at 80mL/hr, electrolytes WNL, Heart healthy diet as tolerated PPx - Lovenox Code - DNR Dispo - Obs to medical Present on Admission?: Yes History of Present Illness Chief Complaint: Body pain Primary Care Provider: Isak Rosales is 60yo male with history of lung CA in remission, asthma, anxiety, GERD, COPD. Patient had been on Prednisone 10mg po daily for years for COPD management. He was recently instructed by Pulmonary to decrease his prednisone. He decreased to 5mg po daily for a week then 2.5mg po daily x 1 week. He finished his taper off yesterday. Patient with 3 days of progressive full body pain, numbness/tingling, LBP 10/10 in severity. He describes some discomfort in his chest, poor appetite and decreased PO intake. Considering pulmonary transplant. Denies fever/chills/nausea/vomiting/diarrhea/constipation/abdominal pain. ER Course: NSS 1500mL, Zofran, Solumedrol, Dilantin Allergies Allergy/AdvReac Type Severity Reaction Status Date / Time No Known Drug Allergies Allergy Verified 07/27/20 21:42 Home Medications Home Medications Medication Instructions Recorded Confirmed Type temazepam 30 mg PO HS PRN 08/05/18 07/27/20 History ipratropium 20 mcg-albuterol 100 1 puff INHALATION QID PRN 08/09/19 07/27/20 History mcg/actuation mist for inhalation ondansetron HCl 4 mg tablet 4 mg PO DAILY PRN #30 tab 12/14/19 07/27/20 Rx pantoprazole 40 mg tablet,delayed 40 mg PO QAM #90 tab 12/19/19 07/27/20 Rx release levalbuterol HCl 1.25 mg/3 mL 1.25 mg INHALATION .COMPLEX PRN 02/07/20 07/27/20 Rx solution for nebulization #1620 ml lubiprostone 8 mcg capsule 8 mcg PO BID #60 cap 04/20/20 07/27/20 Rx cyanocobalamin (vitamin B-12) 2,000 mcg PO DAILY 05/14/20 07/27/20 History [Vitamin B-12] gabapentin 600 mg tablet 600 mg PO TID #90 tab 06/15/20 07/27/20 Rx azithromycin 250 mg tablet 250 mg PO 3XWK #15 tab 07/09/20 07/27/20 Rx umeclidinium 62.5 mcg/actuation 1 inh INH QPM #3 inhaler 07/09/20 07/27/20 Rx blister powder for inhalation albuterol sulfate 2.5 mg INHALATION Q4H PRN #180 ml 07/19/20 07/27/20 Rx ipratropium bromide 0.02 % 2.5 ml INHALATION Q4H PRN #180 ml 07/19/20 07/27/20 Rx solution for inhalation azelastine 2 spray INTNAS BID PRN 07/27/20 07/27/20 History fluticasone furoate-vilanterol 1 inh INHALATION QAM 07/27/20 07/27/20 History [Breariadne Hunter] Past Med/Surg History Medical History Anxiety Asthma Constipation GERD (gastroesophageal reflux disease) H/O pneumothorax History of lung cancer DX 2011-LEFT LOBE/NO SURGERY/RADIATION/CHEMO History of pulmonary embolus (PE) 2016-NO ISSUES SINCE Hypertension NO MEDS Neuropathy Pulmonary emphysema Severe chronic obstructive pulmonary disease F/U DR PARRA SOB (shortness of breath) on exertion Stomach ulcer HX -UNDER CONTROL Surgical History History of colonoscopy History of esophagogastroduodenoscopy (EGD) History of lung surgery STENT TO [id number]? History of vascular access device PORT PLACEMENT-UPPER LEFT IN PLACE S/P laparoscopic cholecystectomy Family History Mother Coronary heart disease Father , age 90 COPD (chronic obstructive pulmonary disease) Diabetes Lung cancer Aunt Cancer Uncle Diabetes Brother Hypertension Other No family history of bleeding disorder Social History Smoking Status: Former smoker packs per day: 1; Cigarettes Per Day: does smoke occ cigar when golfing; Second Hand Exposure: Yes; Tobacco Cessation Education Requested by Patient: No Hx Alcohol Use: No Hx Substance Use: No Preferred Language: Mozambican Communication Ability: Effective Visual Impairment: No Limitations Hearing Ability: Normal Manager Studio Required: No Beliefs That Will Affect Care: None marital status: Single marital status details: but has 1 daughter Current Living Situation: Alone Current Living Situation Comment: brother stays with pt periodically current occupational status: employed and disabled current occupation: 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 Other Information That Helps Us Care for You: No Feels Safe at Home: Yes Safety Concerns: Feels Safe At This Time Assistive Devices: Denture - Upper and Denture - Lower Review of Systems Review of Systems: All systems reviewed & are unremarkable except as noted in HPI & below Physical Exam Physical Exam: General: patient resting comfortably, NAD, non-toxic in appearance, AA&O x 4 Skin: warm, dry, intact, no rashes or lesions HEENT: NC/AT, PERRL, EOMI, anicteric sclera, conjunctiva without injection, external ear normal to inspection and nontender, nares patent, moist mucus membranes, dentition intact, no oropharyngeal lesions, neck supple, trachea midline, no LAD, no thyromegaly, no JVD Heart: +S1/S2, regular, no m/r/g Lungs: equal air entry bilaterally, no rales/rhonchi/wheezes Abd: +BS, soft, NT/ND, no masses/organomegaly/ascites Ext: warm, 2+ pulses in UE/LE bilaterally, no clubbing/cyanosis or edema Neuro: nonfocal, patient AA&O x 4, speech intact, no facial droop, moving all extremities on command with equal strength 5/5 Results & Data Results & Data ([facility]) Vital Signs (Past 12 Hours) Vital Signs Temp Pulse Resp BP Pulse Ox 07/27/20 20:00 107 H 17 114/82 94 07/27/20 19:30 105 H 16 118/81 96 07/27/20 19:02 106 H 21 112/78 93 07/27/20 18:42 36.4 C L 07/27/20 18:30 112 H 20 94 07/27/20 18:00 109 H 20 103/80 95 07/27/20 17:30 104 H 26 H 114/76 94 07/27/20 17:16 112 H 22 95 07/27/20 17:15 112 H 20 113/83 94 07/27/20 17:14 109 H 14 95 07/27/20 16:50 109 H 16 110/78 94 07/27/20 16:42 36.9 C 127 H 26 H 112/72 96 Laboratory Results Lab Results 07/27/20 07/27/20 07/27/20 Range/Units 17:45 17:45 17:45 WBC 9.26 (4.8-10.8) K/uL RBC 5.63 (4.7-6.1) M/uL Hgb 16.5 (14.0-18.0) g/dL Hct 49.0 (42-52) % MCV 87.0 (80-100) fL MCH 29.3 (25-34) pg MCHC 33.7 (32-36) g/dL RDW Std Deviation 50.0 H (36.4-46.3) fL RDW Coeff of Estela 15.6 H (11.5-14.5) % Plt Count 236 (130-400) K/uL MPV 9.5 (7.4-10.4) fL Immature Gran % (Auto) 0.5 % Neut % (Auto) 73.6 % Lymph % (Auto) 14.7 % Slope % (Auto) 9.1 % Eos % (Auto) 1.7 % Baso % (Auto) 0.4 % Neut # (Auto) 6.81 H (1.4-6.5) K/uL Lymph # (Auto) 1.36 (1.2-3.4) K/uL Slope # (Auto) 0.84 H (0.11-0.59) K/uL Eos # (Auto) 0.16 (0-0.5) K/uL Baso # (Auto) 0.04 (0-0.2) K/uL Immature Gran # (Auto) 0.05 H (0.00-0.02) K/uL Sodium 139 (136-145) mmol/L Potassium 3.6 (3.5-5.1) mmol/L Chloride 109 H (98-107) mmol/L Carbon Dioxide 26 (21-32) mmol/L Anion Gap 4.0 (3-11) BUN 9 (7-18) mg/dl Creatinine 1.28 (0.6-1.4) mg/dl Est Cr Clr Drug Dosing 68.8 ml/min Est GFR ( Amer) 70.0 Est GFR (Non-Af Amer) 60.4 BUN/Creatinine Ratio 6.6 L (10-20) Glucose 132 H (70-99) mg/dl Calcium 9.0 (8.5-10.1) mg/dl Phosphorus 2.4 L (2.5-4.9) mg/dl Magnesium 2.3 (1.8-2.4) mg/dl Total Bilirubin 1.2 H (0.2-1) mg/dl AST 7 L (15-37) U/L ALT 25 (12-78) U/L Alkaline Phosphatase 87 (45-117) U/L Total Creatine Kinase 73 (39-308) U/L Troponin I < 0.015 (0-0.045) ng/ml Total Protein 6.5 (6.4-8.2) gm/dl Albumin 3.0 L (3.4-5.0) gm/dl Globulin 3.5 (2.5-4.0) gm/dl Albumin/Globulin Ratio 0.9 (0.9-2) TSH 2.220 (0.300-4.500) uIu/ml Urine Color Urine Appearance (Clear) Urine pH (4.5-7.5) Ur Specific Valley (1.000-1.030) Urine Protein (Negative) Urine Glucose (UA) (Negative) Urine Ketones (Negative) Urine Blood (Negative) Urine Nitrite (Negative) Urine Bilirubin (Negative) Urine Urobilinogen (Negative) Ur Leukocyte Esterase (Negative) Urine WBC (Auto) (0-5) /hpf Urine RBC (Auto) (0-4) /hpf U Hyaline Cast (Auto) (0-5) /lpf U Epithel Cells (Auto) (0-5) /lpf Urine Bacteria (Auto) (Negative) 07/27/20 Range/Units 18:39 WBC (4.8-10.8) K/uL RBC (4.7-6.1) M/uL Hgb (14.0-18.0) g/dL Hct (42-52) % MCV (80-100) fL MCH (25-34) pg MCHC (32-36) g/dL RDW Std Deviation (36.4-46.3) fL RDW Coeff of Estela (11.5-14.5) % Plt Count (130-400) K/uL MPV (7.4-10.4) fL Immature Gran % (Auto) % Neut % (Auto) % Lymph % (Auto) % Slope % (Auto) % Eos % (Auto) % Baso % (Auto) % Neut # (Auto) (1.4-6.5) K/uL Lymph # (Auto) (1.2-3.4) K/uL Slope # (Auto) (0.11-0.59) K/uL Eos # (Auto) (0-0.5) K/uL Baso # (Auto) (0-0.2) K/uL Immature Gran # (Auto) (0.00-0.02) K/uL Sodium (136-145) mmol/L Potassium (3.5-5.1) mmol/L Chloride (98-107) mmol/L Carbon Dioxide (21-32) mmol/L Anion Gap (3-11) BUN (7-18) mg/dl Creatinine (0.6-1.4) mg/dl Est Cr Clr Drug Dosing ml/min Est GFR ( Amer) Est GFR (Non-Af Amer) BUN/Creatinine Ratio (10-20) Glucose (70-99) mg/dl Calcium (8.5-10.1) mg/dl Phosphorus (2.5-4.9) mg/dl Magnesium (1.8-2.4) mg/dl Total Bilirubin (0.2-1) mg/dl AST (15-37) U/L ALT (12-78) U/L Alkaline Phosphatase (45-117) U/L Total Creatine Kinase (39-308) U/L Troponin I (0-0.045) ng/ml Total Protein (6.4-8.2) gm/dl Albumin (3.4-5.0) gm/dl Globulin (2.5-4.0) gm/dl Albumin/Globulin Ratio (0.9-2) TSH (0.300-4.500) uIu/ml Urine Color Yellow Urine Appearance Clear (Clear) Urine pH 5.0 (4.5-7.5) Ur Specific Valley 1.015 (1.000-1.030) Urine Protein Negative (Negative) Urine Glucose (UA) Negative (Negative) Urine Ketones Negative (Negative) Urine Blood Trace H (Negative) Urine Nitrite Negative (Negative) Urine Bilirubin Negative (Negative) Urine Urobilinogen Positive H (Negative) Ur Leukocyte Esterase Trace H (Negative) Urine WBC (Auto) 1-5 (0-5) /hpf Urine RBC (Auto) 0-4 (0-4) /hpf U Hyaline Cast (Auto) 1-5 (0-5) /lpf U Epithel Cells (Auto) 5-10 H (0-5) /lpf Urine Bacteria (Auto) Negative (Negative) Diagnostic Findings CT thoracic spine w con, CT lumbar spine w con HISTORY: back pain, cancer TECHNIQUE: Multiaxial CT images of the thoracic and lumbar spine were performed without contrast and reformatted in the sagittal and coronal plane. COMPARISON STUDY: Chest CT 07/07/2019. Lumbar spine CT 08/05/2018. FINDINGS: Thoracic spine CT: Partially visualized catheter terminates in the SVC. Paraspinal soft tissues are within normal limits. No significant central canal narrowing by CT technique. Emphysema. No change in the right upper lobe irregular/spiculated density best in image 39. No fracture or subluxation within the thoracic spine. Disc spaces are preserved for age. No suspicious lytic or blastic osseous lesions. Lumbar spine CT: No fracture or subluxation. Mild disc space narrowing at L4-L5. No suspicious lytic or blastic osseous lesions. The visualized sacrum is intact. Small broad- based posterior disc bulge at L5-S1. There is a small focal left paracentral disc protrusion at L4-L5. IMPRESSION: 1. No fracture or subluxation within the thoracic or lumbar spine. 2. No suspicious lytic or blastic osseous lesions. ACT 112: Negative or not required by law. Electronically signed by: Lalo Santana M.D. 07/27/2020 7:32 PM Dictated: 07/27/201924 Transcribed: 10/23/20 1925 ----- CT thoracic spine w con, CT lumbar spine w con HISTORY: back pain, cancer TECHNIQUE: Multiaxial CT images of the thoracic and lumbar spine were performed without contrast and reformatted in the sagittal and coronal plane. COMPARISON STUDY: Chest CT 07/07/2019. Lumbar spine CT 08/05/2018. FINDINGS: Thoracic spine CT: Partially visualized catheter terminates in the SVC. Paraspinal soft tissues are within normal limits. No significant central canal narrowing by CT technique. Emphysema. No change in the right upper lobe irregular/spiculated density best in image 39. No fracture or subluxation within the thoracic spine. Disc spaces are preserved for age. No suspicious lytic or blastic osseous lesions. Lumbar spine CT: No fracture or subluxation. Mild disc space narrowing at L4-L5. No suspicious lytic or blastic osseous lesions. The visualized sacrum is intact. Small broad- based posterior disc bulge at L5-S1. There is a small focal left paracentral disc protrusion at L4-L5. IMPRESSION: 1. No fracture or subluxation within the thoracic or lumbar spine. 2. No suspicious lytic or blastic osseous lesions. ACT 112: Negative or not required by law. Electronically signed by: Lalo Santana M.D. 07/27/2020 7:32 PM Dictated: 07/27/201924 Transcribed: 07/27/201924 XR chest 1V portable HISTORY: Shortness of breath. COMPARISON: Chest 09/30/2019. FINDINGS: No change in the emphysema and chronic interstitial thickening. Left subclavian Port-A-Cath terminates at the SVC. No pneumothorax. No pleural effusions. The heart is normal in size. No new focal lung consolidations to suggest pneumonia. No evidence for pulmonary edema. IMPRESSION: Chronic interstitial thickening and emphysema is again noted. No acute process within the chest. ACT 112: Negative or not required by law. Electronically signed by: Lalo Santana M.D. 07/27/2020 7:33 PM Dictated: 07/27/201931 Transcribed: 07/27/201931 Code Status & VTE Plan Code Status DNR VTE Prophylaxis Plan VTE Prophylaxis will be ordered: Yes PG Care Time/CCT Total # of Minutes Spent Total Time Spent with Patient: Total time spent is greater than 50% in coordination of care (as documented) at patient's floor/unit and/or counseling patient: Coding Level of Care Code 55461 Initial Inpt Care Lvl 3 Diagnoses Lower back pain M54.5 Back pain laterality: midline Chronicity: acute Sciatica presence: without sciatica Total body pain R52 COPD (chronic obstructive pulmonary disease) J41.8 COPD type: chronic bronchitis Chronic bronchitis type: mixed simple and mucopurulent GERD (gastroesophageal reflux disease) K21.9 Esophagitis presence: esophagitis presence not specified (1) Lower back pain Back pain laterality: midline Chronicity: acute Sciatica presence: without sciatica Qualified Code(s): M54.5 - Low back pain (2) COPD (chronic obstructive pulmonary disease) COPD type: chronic bronchitis Chronic bronchitis type: mixed simple and mucopurulent Qualified Code(s): J41.8 - Mixed simple and mucopurulent chronic bronchitis (3) GERD (gastroesophageal reflux disease) Esophagitis presence: esophagitis presence not specified Qualified Code(s): K21.9 - Gastro-esophageal reflux disease without esophagitis
[2020-07-27] MEDS ORDERED: ONDANSETRON INJ 2 MG/ML 2 ML VIAL ONE (21:59)
[2020-07-27] MEDS ORDERED: ONDANSETRON INJ 2 MG/ML 2 ML VIAL IV PRN (22:36)
[2020-07-27] MEDS ORDERED: POLYETHYLENE (MIRALAX) 17 GM PACK PO PRN (22:36)
[2020-07-27] MEDS ORDERED: ACETAMINOPHEN 325 MG TAB PO PRN (22:36)
[2020-07-27] MEDS ORDERED: ALBUTEROL 0.5% NEB SOLN 2.5 MG/0.5 ML VIAL NEB PRN (22:36)
[2020-07-27] MEDS ORDERED: DOCUSATE SODIUM 100 MG CAP PO PRN (22:36)
[2020-07-27] MEDS ORDERED: MoRPHine SULFATE 2 MG/ML CARP IV PRN (22:36)
[2020-07-27] MEDS: LACTATED RINGER'S 1,000 ML IV SCH (22:50)
[2020-07-27] MEDS: ENOXAPARIN INJ 40 MG/0.4 ML SYR SQ SCH (23:26)
[2020-07-27 23:55] LABS: Creatine Kinase 73 U/L (39-308); Phosphorus 2.4 mg/dl (2.5-4.9)
[2020-07-28] MEDS ORDERED: PROCHLORPERAZINE 10 MG in SYRINGE 8 ML IV ONE (00:45)
[2020-07-28] MEDS ORDERED: MoRPHine SULFATE 4 MG/ML 1 ML CARP\\VIAL IV STA (01:10)
[2020-07-28] MEDS ORDERED: LEVALBUTEROL HCL 1.25 MG/3 ML NEB INH PRN (01:57)
[2020-07-28] MEDS ORDERED: ALBUTEROL 0.083% NEBU SOLN 3 ML VIAL INH PRN (01:57)
[2020-07-28] MEDS ORDERED: IPRATROPIUM BROMIDE NEB SOLN 0.02% 2.5 ML VIAL INH PRN (01:57)
[2020-07-28] MEDS ORDERED: IPRATROPIUM BROMIDE/ALBUTEROL respimat INH INH PRN (01:57)
[2020-07-28] MEDS ORDERED: NON-FORMULARY MEDICATION (Azelastine 2 SPRAYS) INTNAS PRN (01:57)
[2020-07-28] MEDS ORDERED: TEMAZEPAM 15 MG CAPSULE PO PRN (01:57)
[2020-07-28] MEDS ORDERED: Albuterol HFA 8 GM Inhaler (Combivent Respimat P&T Subs) INH PRN (02:02)
[2020-07-28] MEDS ORDERED: Ipratropium HFA Inhaler (Combivent Respimat P&T Subs) INH PRN (02:02)
[2020-07-28] MEDS ORDERED: ONDANSETRON 4 MG OD TAB PO PRN (02:10)
[2020-07-28 06:25] LABS: Basophils # (auto) 0.01 K/uL (0-0.2); Basophils % (auto) 0.1 %; Hematocrit (blood only) 44.3 % (42-52); Hemoglobin 14.6 g/dL (14.0-18.0); Immature Granulocytes # (auto) 0.04 K/uL (0.00-0.02); Immature Granulocytes % (auto) 0.5 %; Lymphocytes # (auto) 0.55 K/uL (1.2-3.4); Lymphocytes % (auto) 7.5 %; Mean Corpuscular Hemoglobin 29.1 pg (25-34); Mean Corpuscular Volume 88.4 fL (80-100); Mean Platelet Volume 9.4 fL (7.4-10.4); Monocytes # (auto) 0.12 K/uL (0.11-0.59); Monocytes % (auto) 1.6 %; Neutrophils % (auto) 90.3 %; Platelet Count 265 K/uL (130-400); RDW Coefficient of Variation 15.6 % (11.5-14.5); RDW Standard Deviation 50.2 fL (36.4-46.3); Red Blood Count 5.01 M/uL (4.7-6.1); White Blood Count 7.32 K/uL (4.8-10.8)
[2020-07-28 06:59] LABS: Albumin Level 2.7 gm/dl (3.4-5.0); Bilirubin Direct 0.2 mg/dl (0-0.2); Calcium 8.2 mg/dl (8.5-10.1); Est GFR (African American) 94.4; Est GFR (Non-African American) 81.4; Potassium 4.3 mmol/L (3.5-5.1)
[2020-07-28 07:06] LABS: Bilirubin,Total 0.9 mg/dl (0.2-1)
[2020-07-28] MEDS ORDERED: ENOXAPARIN INJ 40 MG/0.4 ML SYR SQ SCH (09:00)
[2020-07-28] MEDS: GABAPENTIN 600 MG TAB PO SCH ×3 (09:01→20:37)
[2020-07-28] MEDS: LUBIPROSTONE 8 MCG CAP PO SCH ×2 (09:01→20:36)
[2020-07-28] MEDS: CYANOCOBALAMIN 500 MCG TABLET (VITAMIN B-12) PO SCH (09:01)
[2020-07-28] MEDS: predniSONE 5 MG TAB PO SCH (09:02)
[2020-07-28] MEDS: PANTOprazole 40 MG TAB PO SCH (09:02)
[2020-07-28] MEDS: FLUTICASONE/VILANTEROL 100/25MCG 14 PUFFS/INHALER INH SCH (09:02)
[2020-07-28] MEDS: LACTATED RINGER'S 1,000 ML IV SCH (11:20)
--- NOTE | 2020-07-28 16:10 | Hospitalist Progress Note ---
Date of Service July 28, 2020 Assessment & Plan (1) Lower back pain: Etiology unclear. Possible concern for steroid withdrawal. No indication of spinal cord compromise with any red-flag symptoms. - Continue prednisone 5mg PO daily -Tylenol PRN (2) Total body pain: (3) COPD (chronic obstructive pulmonary disease): Stable respiratory status. Adequate oxygenation on room air. - Continue home umeclidinium & fluticasone/vilanterol - Levalbuterol PRN (4) GERD (gastroesophageal reflux disease): Chronic. Stable. - Protonix 40mg PO daily (5) DVT prophylaxis: Lovenox 40 mg SQ daily Admission and Anticipated Discharge Date Admission Date: July 27, 2020 Subjective No major change today. Reports both numbness and pain in the legs bilaterally. No point of pain with radiation, they just hurt all over. Reports no fevers/chills, chest pain, shortness of breath, abdominal pain, nausea, or vomiting. Physical Exam Constitutional: WD/WN, vitals as above Eyes: EOM intact bilaterally; no conjunctival abnormality ENMT: external ear and nose normal, oropharynx normal Neck: trachea midline, no thyromegaly normal visual inspection Respiratory: normal respiratory effort, lungs clear to auscultation no respiratory distress Cardiovascular: RRR, no murmur, no edema Gastrointestinal (Abdomen): Inspection/Auscultation: abdomen normal to inspection; abdomen not distended Musculoskeletal: no cyanosis or clubbing, extremities motor strength 5/5 Extremities: extremities normal to inspection, strength 5/5 throughout and + lower leg abnormality (Mildly tender to palpation in the calf muscles.); full ROM of extremities Skin: no rashes, warm and dry Neurologic: moves all extremities and awake Psychiatric: Orientation: alert, oriented to person and cooperative Results & Data Results & Data ([facility]) Vital Signs (Past 12 Hours) Vital Signs Temp Pulse Pulse Resp BP BP Pulse Ox 07/28/20 16:00 36.5 C 84 18 97/62 L 93 07/28/20 11:00 36.5 C 93 H 18 94/55 L 92 07/28/20 07:00 37.1 C 85 18 88/52 L 81/36 L 91 PG Care Time/CCT Total # of Minutes Spent Total Time Spent with Patient: Total time spent is greater than 50% in coordination of care (as documented) at patient's floor/unit and/or counseling patient: Coding Level of Care Code 38295 Subseq Obs Care Lvl 2 Diagnoses Lower back pain M54.5 Back pain laterality: midline Chronicity: acute Sciatica presence: without sciatica Total body pain R52 COPD (chronic obstructive pulmonary disease) J41.8 COPD type: chronic bronchitis Chronic bronchitis type: mixed simple and mucopurulent GERD (gastroesophageal reflux disease) K21.9 Esophagitis presence: esophagitis presence not specified DVT prophylaxis Z29.9 (1) Lower back pain Back pain laterality: midline Chronicity: acute Sciatica presence: without sciatica Qualified Code(s): M54.5 - Low back pain (2) COPD (chronic obstructive pulmonary disease) COPD type: chronic bronchitis Chronic bronchitis type: mixed simple and mucopurulent Qualified Code(s): J41.8 - Mixed simple and mucopurulent chronic bronchitis (3) GERD (gastroesophageal reflux disease) Esophagitis presence: esophagitis presence not specified Qualified Code(s): K21.9 - Gastro-esophageal reflux disease without esophagitis
[2020-07-28] MEDS: ENOXAPARIN INJ 40 MG/0.4 ML SYR SQ SCH (20:37)
[2020-07-28] MEDS ORDERED: UMECLIDINIUM BROMIDE 62.5MCG/BLISTER 7 PUFFS/INHALER INH SCH (21:00)
[2020-07-28] MEDS ORDERED: HEPARIN 100 UNIT/ML 5ML FLUSH FLUSH PRN (23:03)
[2020-07-29] MEDS: CYANOCOBALAMIN 500 MCG TABLET (VITAMIN B-12) PO SCH (08:47)
[2020-07-29] MEDS: GABAPENTIN 600 MG TAB PO SCH (08:47)
[2020-07-29] MEDS: LUBIPROSTONE 8 MCG CAP PO SCH (08:48)
[2020-07-29] MEDS: FLUTICASONE/VILANTEROL 100/25MCG 14 PUFFS/INHALER INH SCH (08:48)
[2020-07-29] MEDS: PANTOprazole 40 MG TAB PO SCH (08:48)
[2020-07-29] MEDS: predniSONE 5 MG TAB PO SCH (08:48)
--- NOTE | 2020-07-29 13:54 | Electrocardiogram Report ---
Test Reason : Blood Pressure : / mmHG Vent. Rate : 109 BPM Atrial Rate : 109 BPM P-R Int : 164 ms QRS Dur : 084 ms QT Int : 322 ms P-R-T Axes : 082 082 079 degrees QTc Int : 433 ms Sinus tachycardia Otherwise normal ECG When compared with ECG of 07-OCT-2018 06:32, No significant change was found Confirmed by John Reyes [id number] on 07/29/2020 1:54:09 PM Referred By: Isak Zuniga Confirmed By:John Reyes
--- NOTE | 2020-07-29 17:40 | Discharge Summary ---
Date of Service July 29, 2020 Admission HPI Per Admitting Provider Isak Rosales is 60yo male with history of lung CA in remission, asthma, anxiety, GERD, COPD. Patient had been on Prednisone 10mg po daily for years for COPD management. He was recently instructed by Pulmonary to decrease his prednisone. He decreased to 5mg po daily for a week then 2.5mg po daily x 1 week. He finished his taper off yesterday. Patient with 3 days of progressive full body pain, numbness/tingling, LBP 10/10 in severity. He describes some discomfort in his chest, poor appetite and decreased PO intake. Considering pulmonary transplant. Denies fever/chills/nausea/vomiting/diarrhea/constipation/abdominal pain. ER Course: NSS 1500mL, Zofran, Solumedrol, Dilantin Principal Diagnosis Lower back and extremity pain Discharge Exam Constitutional WD/WN, vitals as above Eyes EOM intact bilaterally; no conjunctival abnormality ENMT external ear and nose normal, oropharynx normal Neck trachea midline, no thyromegaly normal visual inspection Respiratory normal respiratory effort, lungs clear to auscultation no respiratory distress Cardiovascular RRR, no murmur, no edema Gastrointestinal (Abdomen) Inspection/Auscultation: abdomen normal to inspection; abdomen not distended Musculoskeletal no cyanosis or clubbing, extremities motor strength 5/5 Extremities: extremities normal to inspection and strength 5/5 throughout; full ROM of extremities and no lower leg abnormality (Mildly tender to palpation in the calf muscles.) Skin no rashes, warm and dry Neurologic moves all extremities and awake Psychiatric Orientation: alert, oriented to person and cooperative Discharge Data Allergies Allergy/AdvReac Type Severity Reaction Status Date / Time No Known Drug Allergies Allergy Verified 07/27/20 21:42 Consultations 07/27/20 20:29 ED Decision to Admit Stat Ordered Studies 07/27/20 18:27 CT lumbar spine w con Stat CT thoracic spine w con Stat Hospital Course (1) Lower back pain: Etiology unclear. Possible concern for steroid withdrawal. No indication of spinal cord compromise with any red-flag symptoms. Steroid withdrawal syndrome is documented in the literature. I am not sure if this was this issue or not, as the symptoms seem quite varied and it is not very well documented. - Continue prednisone 5mg PO daily - By 07/29, his symptoms had completely resolved. No pain, no tenderness to palpations, full strength. He reported to me he had a jean carlos time for 1:30pm and wanted to be discharged. I advised him to continue on prednisone 5 mg PO daily until he is seen by his PCP and journal box inspector. I do not think this is PMR as he didn't really have hip pain and no shoulder pain. Otherwise, unclear etiology. (2) Total body pain: (3) COPD (chronic obstructive pulmonary disease): Stable respiratory status. Adequate oxygenation on room air. - Continue home umeclidinium & fluticasone/vilanterol - Levalbuterol PRN (4) GERD (gastroesophageal reflux disease): Chronic. Stable. - Protonix 40mg PO daily (5) DVT prophylaxis: Lovenox 40 mg SQ daily Total Time Total Time Spent Total Time Spent (In Minutes): 35 Discharge Plan Discharge Items Patient Disposition: Home - Self-Care Reason For Visit: BODY PAIN Discharge Diagnosis: Prednisone withdrawal Condition on Discharge: Good Activity: Resume your previous activity Non-emergency contact: Primary Care Provider and Physiotherapy Practice Manager Call non-emergency contact if: your symptoms worsen Follow-up/Referrals: Isak Zuniga III, MD [Primary Care Provider] - Diet: Regular Addtl Attending Provider Instructions: You were admitted for lower back and leg pain that we assume was from prednisone withdrawal. While this isn't a very well-defined illness, you did recently taper your steroids and stop them which preceded your symptoms. After restarting your prednisone, you feel back to baseline. Your strength and sensation are all intact and at baseline. You no longer have muscle cramps and pain. Please take your prednisone at 5 mg. I do think it is good to have as low a dose of this as possible. You should speak with your PCP and journal box inspector about adjusting this dose as needed. Pending Studies at Discharge: No Stand-Alone Forms: My [facility], Smoking Cessation Medications and DC Order Prescriptions: New prednisone 5 mg Tablet 5 mg PO DAILY Qty: 1 RF: 0 Continued ondansetron HCl [Zofran] 4 mg tablet 4 mg PO DAILY PRN (Reason: nausea and vomiting) Qty: 30 RF: 2 pantoprazole 40 mg tablet,delayed release (DR/EC) 40 mg PO QAM Qty: 90 RF: 3 levalbuterol HCl 1.25 mg/3 mL solution for nebulization 1.25 mg Inhalation .COMPLEX PRN (Reason: Shortness Of Breath) Qty: 1620 RF: 1 Amitiza 8 mcg capsule 8 mcg PO BID Qty: 60 RF: 5 albuterol sulfate 2.5 mg /3 mL (0.083 %) solution for nebulization 2.5 mg inhalation Q4H PRN (Reason: COPD) Qty: 180 RF: 5 ipratropium bromide 0.02 % solution 2.5 ml inhalation Q4H PRN (Reason: COPD) Qty: 180 RF: 5 azithromycin 250 mg tablet 250 mg PO 3XWK Qty: 15 RF: 5 Incruse Ellipta 62.5 mcg/actuation blister with device 1 inh INH QPM Qty: 3 RF: 1 gabapentin 600 mg tablet 600 mg PO TID Qty: 90 RF: 2 cyanocobalamin (vitamin B-12) [Vitamin B-12] 2,000 mcg Tablet Extended Release 2,000 mcg PO DAILY RF: 0 temazepam 30 mg Capsule 30 mg PO HS PRN (Reason: Insomnia) RF: 0 Combivent Respimat 20-100 mcg/actuation mist 1 puff INHALATION QID PRN (Reason: Wheezing) RF: 0 azelastine 137 mcg (0.1 %) aerosol,spray 2 spray INTNAS BID PRN (Reason: ALLERGIC RHINITIS) RF: 0 Breo Ellipta 100-25 mcg/dose blister with device 1 inh inhalation QAM RF: 0 Discharge Orders: Discharge Order (Routine); Ordered 07/29/20 Ordered By: Delgado Whitten Admission Data Admit Date/Time: 07/27/20 21:16 Attending Provider: Delgado Whitten Admit Provider: Staci Vega Primary Care Provider: Isak Zuniga III Other Providers: Delgado Whitten Other Interventions: Discharge Summary Assessment (RN) Last Done: 07/29/20 08:53 Coding Level of Care Code 02598 OBS Care - Discharge Diagnoses Lower back pain M54.5 Back pain laterality: midline Chronicity: acute Sciatica presence: without sciatica Total body pain R52 COPD (chronic obstructive pulmonary disease) J41.8 COPD type: chronic bronchitis Chronic bronchitis type: mixed simple and mucopurulent GERD (gastroesophageal reflux disease) K21.9 Esophagitis presence: esophagitis presence not specified DVT prophylaxis Z29.9
== END 2020-07-29 10:01 | disposition home or self-care (01) ==
LOC: 2N 16:36 → ED 16:36 → SUATTDRO 21:16 → 2N 21:56

== ENCOUNTER 2021-01-15 09:32 | Inpatient (IN) ==
[2021-01-15] MEDS ORDERED: SODIUM CHLORIDE 0.9% 500 ML IV STA (09:45)
[2021-01-15] MEDS ORDERED: ASPIRIN CHEW 324 MG PO STA (09:45)
[2021-01-15] MEDS ORDERED: MoRPHine SULFATE 4 MG/ML 1 ML CARP\\VIAL IV PRN (09:45)
[2021-01-15] MEDS ORDERED: ONDANSETRON INJ 2 MG/ML 2 ML VIAL IV STA (09:45)
--- NOTE | 2021-01-15 09:58 | Emergency Department Note ---
Impression & Plan Acute non-ST elevation myocardial infarction (NSTEMI), Chest pain, Abnormal EKG ED Provider Note NAME: ISAK PERRY AGE: 60 SEX: M : 1960 ARRIVES VIA: Walk-In INFORMANT: Patient, ED PROVIDER(S): Bon Jensen DO CHIEF COMPLAINT: Chest pain HPI: The patient is a 60-year-old male who presented to the emergency department for an evaluation of chest pain. The patient describes anterior chest pain which is sharp. The patient states the pain does go to his back. He does note some shortness of breath but he does not state that this is the main concern. He is very concerned about the chest pain. The pain has been intermittent for the last few days but then became constant this morning. He describes the pain is sharp and severe. He denies having any nausea or vomiting. He has no arm pain or neck pain. The patient tried taking medications for this without relief. He did not see his family doctor for this pain. He does have a history of pulmonary embolism in the past. He has a history of lung cancer. He is not currently receiving chemotherapy. The patient states the pain is not necessarily exertional but does get worse when he moves around. ROS: See above HPI for pertinent positives & negatives. A total of 10 systems reviewed and were otherwise negative. PAST MEDICAL HISTORY: See Below PAST SURGICAL HISTORY: See Below FAMILY HISTORY: See Below SOCIAL HISTORY: See Below HOME MEDICATIONS: See Below ALLERGIES: See Below VITALS: See Below PHYSICAL EXAMINATION: GENERAL: The patient is awake and alert. The patient is very anxious appearing and appears to be in significant pain. EYES: The conjunctivae are clear. The pupils are round and reactive. EARS, NOSE, MOUTH AND THROAT: The nose is without any evidence of any deformity. Mucous membranes are moist. Tongue is midline. NECK: The neck is nontender and supple. RESPIRATORY: Diminished breath sounds are noted throughout. There was no specific tachypnea or conversational dyspnea appreciated. CARDIOVASCULAR: Tachycardic but regular rate was noted auscultation. There was no definite murmur. GASTROINTESTINAL: The abdomen is soft. Abdomen is nontender. MUSCULOSKELETAL/EXTREMITIES: There is no evidence of gross deformity full range of motion is noted in the hips and shoulders. SKIN: There is no obvious evidence of any rash. There is no significant pedal edema or calf tenderness noted. NEUROLOGIC: Patient is awake alert and oriented x3. MEDICAL DECISION MAKING: The patient is a 60-year-old male who presented to the emergency department for an evaluation of chest pain. The patient has a history of pulmonary embolism. He had EKG changes that could be consistent with ischemia. The patient was treated with IV pain medication in the emergency department. He was also given aspirin. Ultimately the patient was started on IV heparin when his troponin came back elevated but a CT of the chest was obtained given the patient's past medical history for pulmonary embolism. Ultimately the CT did not show any signs of definite pulmonary embolism. I discussed the patient's case with the on-call [facility] hospitalist. He was then started on a nitroglycerin drip. The patient's pain was somewhat improved on reevaluation. Cardiology was consulted and the patient was felt to be a good candidate for cardiac catheterization. The patient was reevaluated multiple times. I discussed the patient's laboratory and radiographic studies with him. Triage Nursing notes reviewed. Prior medical records reviewed Vital Signs: reviewed and remarkable for tachycardia. Differential diagnosis: Cardiac ischemia, aortic dissection, pulmonary embolism, pneumothorax, pneumonia, pericarditis, myocarditis, esophageal rupture, GERD, cholecystitis, pancreatitis, musculoskeletal, as well as other pathologies. ER treatment provided: See below Diagnostics interpreted by me: ECG: EKG was obtained in the emergency department. My interpretation is sinus tachycardia 119 bpm. Anterior and low lateral ST depressions were noted. This was compared to a tracing from August 31, 2020. The ischemic changes are new compared to the previous tracing Cardiac Monitoring: An order was placed for continuous cardiac monitoring. The monitor shows a rate of 110 bpm sinus tachycardia with rhythm. Laboratory studies: As stated above and show below. Imaging studies: See below Consultation(s): I discussed this case with Dr. Mi who is on-call for the [facility] group. ED COURSE: Procedures: none PDMP:reviewed and no issues Critical Care: I have personally spent greater than 65 minutes of critical care time in the direct management of this patient. This includes bedside care, interpretation of diagnostic studies, and testing, discussion with consultants, patient, and family members, and other required patient management activities. This 65 minutes is in excess of all separately billable procedures. Past Med/Surg History Medical History Anxiety Asthma Constipation GERD (gastroesophageal reflux disease) H/O pneumothorax History of lung cancer DX 2012-LEFT LOBE/NO SURGERY/RADIATION/CHEMO History of pulmonary embolus (PE) 2017-NO ISSUES SINCE Hypertension NO MEDS Neuropathy Pulmonary emphysema Severe chronic obstructive pulmonary disease SOB (shortness of breath) on exertion Stomach ulcer HX -UNDER CONTROL Surgical History History of colonoscopy History of esophagogastroduodenoscopy (EGD) History of lung surgery STENT TO [id number]? History of vascular access device PORT PLACEMENT-UPPER LEFT IN PLACE S/P laparoscopic cholecystectomy Family History Mother Coronary heart disease Father , age 90 COPD (chronic obstructive pulmonary disease) Diabetes Lung cancer Aunt Cancer Uncle Diabetes Brother Hypertension Other No family history of bleeding disorder Social History Smoking Status: Former smoker packs per day: 1; Years Smoked: 37; Cigarettes Per Day: does smoke occ cigar when golfing; Second Hand Exposure: Yes; Hx Alcohol Use: No Hx Substance Use: No Preferred Language: Hebrew Communication Ability: Effective Visual Impairment: No Limitations Hearing Ability: Normal Child Welfare Counselor Required: No Beliefs That Will Affect Care: None marital status: Single marital status details: but has 1 daughter Current Living Situation: Alone Current Living Situation Comment: brother stays with pt periodically current occupational status: employed and disabled 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 Feels Safe at Home: Yes Assistive Devices: Denture - Upper and Denture - Lower Allergies Allergies Allergy/AdvReac Type Severity Reaction Status Date / Time No Known Allergies Allergy Verified 01/15/21 10:38 Home Meds Home Medications Medication Instructions Recorded Confirmed cyanocobalamin (vitamin B-12) 2,000 mcg PO DAILY 05/14/20 01/15/21 [Vitamin B-12] azelastine 2 spray INTNAS BID PRN 07/27/20 01/15/21 Previous Rx's Medication Instructions Recorded ondansetron HCl 4 mg tablet 4 mg PO DAILY PRN #30 tab 12/14/19 gabapentin 600 mg tablet 600 mg PO TID 30 Days #90 tab 09/17/20 pantoprazole 40 mg tablet,delayed 40 mg PO QAM #90 tab 11/09/20 release prednisone 10 mg tablet 10 mg PO DAILY #90 tab 11/12/20 duloxetine 60 mg capsule,delayed 60 mg PO DAILY #30 cap 12/21/20 release albuterol sulfate 90 mcg/actuation 2 puff INHALATION Q6H PRN #18 g 01/08/21 aerosol inhaler azithromycin 250 mg tablet 250 mg PO 3XWK #15 tab 01/08/21 fluticasone furoate 100 1 inh INHALATION QAM #60 ea 01/08/21 mcg-vilanterol 25 mcg/dose inhalation powder roflumilast 250 mcg tablet 250 mcg PO DAILY 14 Days #14 tab 01/08/21 roflumilast 500 mcg tablet 500 mcg PO DAILY #60 tab 01/08/21 umeclidinium 62.5 mcg/actuation 1 inh INH QPM #3 inhaler 01/08/21 blister powder for inhalation albuterol sulfate 2.5 mg INHALATION Q4H PRN #180 ml 01/09/21 ipratropium bromide 0.02 % 2.5 ml INHALATION Q4H PRN #180 ml 01/09/21 solution for inhalation Results & Data (ED) Vital Signs Vital Signs - 24 hr 01/15/21 09:39 01/15/21 09:45 01/15/21 11:14 Temperature 36.8 C Temperature Source Temporal Artery Scan Pulse Rate 123 H Pulse Rate [Apical] 111 H Pulse Rhythm [Apical] Regular Pulse Strength [Apical] Normal Respiratory Rate 18 22 Respiratory Effort / Characteristics Non-Labored Spontaneous Respiratory Depth Normal Respiratory Pattern Regular Blood Pressure 135/89 Blood Pressure [Left Arm] 136/98 Blood Pressure Mean 104 Blood Pressure Mean [Left Arm] 110 Pulse Oximetry 97 96 92 Oxygen Delivery Method Room Air Room Air Sepsis Recent Fever Within 48 Hours No Sepsis New/Unexplained Change in Mental Status No Sepsis Action Taken by Nursing No Action Required 01/15/21 12:33 01/15/21 14:21 01/15/21 14:45 Temperature Temperature Source Pulse Rate Pulse Rate [Apical] 110 H 107 H 104 H Pulse Rhythm [Apical] Regular Regular Pulse Strength [Apical] Normal Normal Respiratory Rate 19 16 16 Respiratory Effort / Characteristics Non-Labored Non-Labored Spontaneous Non-Labored Spontaneous Respiratory Depth Normal Normal Normal Respiratory Pattern Regular Regular Blood Pressure Blood Pressure [Left Arm] 120/76 104/78 116/86 Blood Pressure Mean Blood Pressure Mean [Left Arm] 90 86 96 Pulse Oximetry 96 94 94 Oxygen Delivery Method Room Air Room Air Room Air Sepsis Recent Fever Within 48 Hours Sepsis New/Unexplained Change in Mental Status Sepsis Action Taken by Nursing 01/15/21 15:00 Temperature Temperature Source Pulse Rate Pulse Rate [Apical] 104 H Pulse Rhythm [Apical] Regular Pulse Strength [Apical] Normal Respiratory Rate 16 Respiratory Effort / Characteristics Non-Labored Spontaneous Respiratory Depth Normal Respiratory Pattern Regular Blood Pressure Blood Pressure [Left Arm] 130/90 Blood Pressure Mean Blood Pressure Mean [Left Arm] 103 Pulse Oximetry 94 Oxygen Delivery Method Room Air Sepsis Recent Fever Within 48 Hours Sepsis New/Unexplained Change in Mental Status Sepsis Action Taken by Group Home Medications Current Medication List: was personally reviewed by me Laboratory Data Attestation: I reviewed the patient's lab results. Result diagrams: 01/15/21 09:57 01/15/21 09:57 Lab Results 01/15/21 01/15/21 01/15/21 Range/Units 09:57 09:57 09:57 WBC 8.52 (4.8-10.8) K/uL RBC 5.59 (4.7-6.1) M/uL Hgb 17.0 (14.0-18.0) g/dL Hct 50.7 (42-52) % MCV 90.7 (80-100) fL MCH 30.4 (25-34) pg MCHC 33.5 (32-36) g/dL RDW Std Deviation 51.6 H (36.4-46.3) fL RDW Coeff of Estela 15.5 H (11.5-14.5) % Plt Count 263 (130-400) K/uL MPV 9.6 (7.4-10.4) fL Immature Gran % (Auto) 0.8 % Neut % (Auto) 68.4 % Lymph % (Auto) 19.5 % Amite % (Auto) 8.5 % Eos % (Auto) 2.1 % Baso % (Auto) 0.7 % Neut # (Auto) 5.83 (1.4-6.5) K/uL Lymph # (Auto) 1.66 (1.2-3.4) K/uL Amite # (Auto) 0.72 H (0.11-0.59) K/uL Eos # (Auto) 0.18 (0-0.5) K/uL Baso # (Auto) 0.06 (0-0.2) K/uL Immature Gran # (Auto) 0.07 H (0.00-0.02) K/uL PT 9.2 (9.0-12.0) Seconds INR 0.9 (0.9-1.1) APTT 23.6 (21.0-31.0) Seconds PTT Ratio 0.9 Activ Coag Time Kaolin (94-140) SECONDS D-Dimer 470 (0-500) ug/L FEU Sodium 143 (136-145) mmol/L Potassium 3.3 L (3.5-5.1) mmol/L Chloride 110 H (98-107) mmol/L Carbon Dioxide 28 (21-32) mmol/L Anion Gap 5.0 (3-11) BUN 9 (7-18) mg/dl Creatinine 1.11 (0.6-1.4) mg/dl Est Cr Clr Drug Dosing 77.7 ml/min Est GFR ( Amer) 83.2 Est GFR (Non-Af Amer) 71.8 BUN/Creatinine Ratio 8.5 L (10-20) Glucose 171 H (70-99) mg/dl Calcium 8.6 (8.5-10.1) mg/dl Total Bilirubin 0.6 (0.2-1) mg/dl AST 15 (15-37) U/L ALT 51 (12-78) U/L Alkaline Phosphatase 105 (45-117) U/L Troponin I 0.803 H* (0-0.045) ng/ml Total Protein 7.0 (6.4-8.2) gm/dl Albumin 3.4 (3.4-5.0) gm/dl Globulin 3.6 (2.5-4.0) gm/dl Albumin/Globulin Ratio 0.9 (0.9-2) Lipase 174 (73-393) U/L COVID-19 Eval Order SARS-CoV-2 (PCR) (Negative) Influenza Type A (PCR) (Neg) Influenza Type B (PCR) (Neg) RSV (RT-PCR) (Neg) 01/15/21 01/15/21 01/15/21 Range/Units 11:45 11:45 13:54 WBC (4.8-10.8) K/uL RBC (4.7-6.1) M/uL Hgb (14.0-18.0) g/dL Hct (42-52) % MCV (80-100) fL MCH (25-34) pg MCHC (32-36) g/dL RDW Std Deviation (36.4-46.3) fL RDW Coeff of Estela (11.5-14.5) % Plt Count (130-400) K/uL MPV (7.4-10.4) fL Immature Gran % (Auto) % Neut % (Auto) % Lymph % (Auto) % Amite % (Auto) % Eos % (Auto) % Baso % (Auto) % Neut # (Auto) (1.4-6.5) K/uL Lymph # (Auto) (1.2-3.4) K/uL Amite # (Auto) (0.11-0.59) K/uL Eos # (Auto) (0-0.5) K/uL Baso # (Auto) (0-0.2) K/uL Immature Gran # (Auto) (0.00-0.02) K/uL PT (9.0-12.0) Seconds INR (0.9-1.1) APTT (21.0-31.0) Seconds PTT Ratio Activ Coag Time Kaolin 235 H (94-140) SECONDS D-Dimer (0-500) ug/L FEU Sodium (136-145) mmol/L Potassium (3.5-5.1) mmol/L Chloride (98-107) mmol/L Carbon Dioxide (21-32) mmol/L Anion Gap (3-11) BUN (7-18) mg/dl Creatinine (0.6-1.4) mg/dl Est Cr Clr Drug Dosing ml/min Est GFR ( Amer) Est GFR (Non-Af Amer) BUN/Creatinine Ratio (10-20) Glucose (70-99) mg/dl Calcium (8.5-10.1) mg/dl Total Bilirubin (0.2-1) mg/dl AST (15-37) U/L ALT (12-78) U/L Alkaline Phosphatase (45-117) U/L Troponin I (0-0.045) ng/ml Total Protein (6.4-8.2) gm/dl Albumin (3.4-5.0) gm/dl Globulin (2.5-4.0) gm/dl Albumin/Globulin Ratio (0.9-2) Lipase (73-393) U/L COVID-19 Eval Order CovFluRsv at [facility] SARS-CoV-2 (PCR) NEGATIVE (Negative) Influenza Type A (PCR) Negative (Neg) Influenza Type B (PCR) Negative (Neg) RSV (RT-PCR) Negative (Neg) 01/15/21 Range/Units 14:08 WBC (4.8-10.8) K/uL RBC (4.7-6.1) M/uL Hgb (14.0-18.0) g/dL Hct (42-52) % MCV (80-100) fL MCH (25-34) pg MCHC (32-36) g/dL RDW Std Deviation (36.4-46.3) fL RDW Coeff of Estela (11.5-14.5) % Plt Count (130-400) K/uL MPV (7.4-10.4) fL Immature Gran % (Auto) % Neut % (Auto) % Lymph % (Auto) % Amite % (Auto) % Eos % (Auto) % Baso % (Auto) % Neut # (Auto) (1.4-6.5) K/uL Lymph # (Auto) (1.2-3.4) K/uL Amite # (Auto) (0.11-0.59) K/uL Eos # (Auto) (0-0.5) K/uL Baso # (Auto) (0-0.2) K/uL Immature Gran # (Auto) (0.00-0.02) K/uL PT (9.0-12.0) Seconds INR (0.9-1.1) APTT (21.0-31.0) Seconds PTT Ratio Activ Coag Time Kaolin 268 H (94-140) SECONDS D-Dimer (0-500) ug/L FEU Sodium (136-145) mmol/L Potassium (3.5-5.1) mmol/L Chloride (98-107) mmol/L Carbon Dioxide (21-32) mmol/L Anion Gap (3-11) BUN (7-18) mg/dl Creatinine (0.6-1.4) mg/dl Est Cr Clr Drug Dosing ml/min Est GFR ( Amer) Est GFR (Non-Af Amer) BUN/Creatinine Ratio (10-20) Glucose (70-99) mg/dl Calcium (8.5-10.1) mg/dl Total Bilirubin (0.2-1) mg/dl AST (15-37) U/L ALT (12-78) U/L Alkaline Phosphatase (45-117) U/L Troponin I (0-0.045) ng/ml Total Protein (6.4-8.2) gm/dl Albumin (3.4-5.0) gm/dl Globulin (2.5-4.0) gm/dl Albumin/Globulin Ratio (0.9-2) Lipase (73-393) U/L COVID-19 Eval Order SARS-CoV-2 (PCR) (Negative) Influenza Type A (PCR) (Neg) Influenza Type B (PCR) (Neg) RSV (RT-PCR) (Neg) Administered Medications Nitroglycerin/Dextrose (Nitroglycerin/D5w 100 Mcg/Ml) 250 mls @ 3 mls/hr IV .Q24H [facility]; Protocol Stop: 02/14/21 11:44 Last Admin: 01/15/21 12:26 Dose: 5 mcg/min, 3 mls/hr Documented by: [id number] Cosigned by: [id number] Morphine Sulfate (Morphine Sulfate 4 Mg/Ml 1 Ml Carp\Vial) 4 mg IV Q30M PRN PRN Reason: Moderate Pain Stop: 01/29/21 09:44 Last Admin: 01/15/21 10:12 Dose: 4 mg Documented by: [id number] Discontinued Medications Aspirin (Aspirin Chew 324 Mg) 324 mg PO NOW STA Stop: 01/15/21 09:46 Last Admin: 01/15/21 10:12 Dose: 324 mg Documented by: [id number] Fentanyl Citrate (Fentanyl Citrate 100 Mcg/2 Ml Vial) Confirm Administered Dose 100 mcg .ROUTE .STK-MED ONE Stop: 01/15/21 13:10 Last Increment: 01/15/21 14:14 Dose: 50 mcg Documented by: [id number] Heparin Sodium (Porcine) (Heparin Sod (Porcine) 1000 Unit/Ml 10 Ml Vial) Confirm Administered Dose 10,000 units .ROUTE .STK-MED ONE Stop: 01/15/21 11:37 Last Admin: 01/15/21 12:29 Dose: 4,000 units Documented by: [id number] Cosigned by: [id number] Heparin Sodium (Porcine) (Heparin (Porcine) 1000 Unit/Ml 10 Ml (System Safety Engineer Use Only)) Confirm Administered Dose 10,000 units .ROUTE .STK-MED ONE Stop: 01/15/21 13:10 Last Admin: 01/15/21 14:14 Dose: 9,000 units Documented by: [id number] Heparin Sodium/Dextrose (Heparin Iv Standard With Bolus) 1 ea IV NOW STA; Protocol Stop: 01/15/21 10:50 Last Admin: 01/15/21 11:59 Dose: Not Given Documented by: [id number] Heparin Sodium/Sodium Chloride (Heparin In Nss Infusion 1000 Unit/500 Ml (2 U/Ml) Bag) Confirm Administered Dose 3,000 units IV .STK-MED ONE Stop: 01/15/21 13:10 Last Admin: 01/15/21 13:22 Dose: 3,000 units Documented by: [id number] Hydromorphone HCl (Hydromorphone Inj 1 Mg/Ml Syringe) 1 mg IV NOW STA Stop: 01/15/21 10:36 Last Admin: 01/15/21 11:03 Dose: 1 mg Documented by: [id number] Sodium Chloride (Nss) 500 mls @ 999 mls/hr IV .Q31M STA Stop: 01/15/21 10:15 Last Infusion: 01/15/21 11:28 Dose: 0 mls/hr Documented by: [id number] Admin: 01/15/21 10:13 Dose: 999 mls/hr Documented by: [id number] Heparin Sodium/Dextrose (Heparin Sodium/Dextrose) 25,000 units in 500 mls @ 0.02 mls/hr IV .Q24H [facility]; Protocol Stop: 02/14/21 10:59 Last Admin: 01/15/21 11:59 Dose: Not Given Documented by: [id number] Heparin Sodium/Dextrose (Heparin Sodium/Dextrose) 25,000 units in 500 mls @ 0.02 mls/hr IV .Q24H [facility]; Protocol Stop: 02/14/21 11:44 Last Admin: 01/15/21 12:26 Dose: Not Given Documented by: [id number] Ioversol (Optiray 320 125ml) 120 ml IV ONCE ONE Stop: 01/15/21 11:06 Last Admin: 01/15/21 11:07 Dose: 120 ml Documented by: [id number] Midazolam HCl (Midazolam Hcl 1 Mg/Ml 2ml Vial) Confirm Administered Dose 2 mg .ROUTE .STK-MED ONE Stop: 01/15/21 13:10 Last Admin: 01/15/21 14:14 Dose: 2 mg Documented by: [id number] Midazolam HCl (Midazolam Hcl 1 Mg/Ml 2ml Vial) Confirm Administered Dose 2 mg .ROUTE .STK-MED ONE Stop: 01/15/21 14:06 Last Increment: 01/15/21 14:15 Dose: 1 mg Documented by: [id number] Nicardipine HCl (Nicardipine Hcl Inj 2.5 Mg/Ml 10 Ml Amp) Confirm Administered Dose 25 mg .ROUTE .STK-MED ONE Stop: 01/15/21 13:10 Last Admin: 01/15/21 13:22 Dose: 25 mg Documented by: [id number] Nitroglycerin (Nitroglycerin Sl 0.4 Mg/Tab Tab) 0.4 mg SL NOW STA Stop: 01/15/21 11:39 Last Admin: 01/15/21 12:28 Dose: Not Given Documented by: [id number] Nitroglycerin (Nitroglycerin Sl 0.4 Mg/Tab Tab) Confirm Administered Dose 0.4 mg .ROUTE .STK-MED ONE Stop: 01/15/21 11:40 Last Admin: 01/15/21 11:40 Dose: 0.4 mg Documented by: [id number] Nitroglycerin (Nitroglycerin Sl 0.4 Mg/Tab Tab) Confirm Administered Dose 0.4 mg .ROUTE .STK-MED ONE Stop: 01/15/21 11:54 Last Admin: 01/15/21 11:55 Dose: 0.4 mg Documented by: [id number] Nitroglycerin/Dextrose (Nitroglycerin/D5w 100mcg/Ml 20ml Syr) Confirm Administered Dose 2,000 mcg .ROUTE .STK-MED ONE Stop: 01/15/21 13:11 Last Admin: 01/15/21 13:22 Dose: 2,000 mcg Documented by: [id number] Ondansetron HCl (Ondansetron Inj 2 Mg/Ml 2 Ml Vial) 4 mg IV NOW STA Stop: 01/15/21 09:46 Last Admin: 01/15/21 10:12 Dose: 4 mg Documented by: [id number] Imaging Data Radiologist's Impression: Chest X-Ray 01/15/21 09:45 XR chest 1V portable CLINICAL HISTORY: Atypical chest pain. History of lung cancer. COMPARISON STUDY: Chest CT January 03, 2021. FINDINGS: Left subclavian [id number] is in place. There is severe emphysema. No pneumothorax or pleural effusion is present. Mild lower lung interstitial thickening is unchanged. IMPRESSION: 1. No acute cardiopulmonary findings. No change in lower lung interstitial thickening. 2. Severe emphysema. ACT 112: Negative or not required by law. Electronically signed by: Hansel Lopez M.D. 01/15/2021 10:21 AM Chest CTA 01/15/21 10:49 CT angio chest PE protocol CT DOSE: 370.76 mGy.cm HISTORY: 60 years-old Male with PE. Acute chest pain with history of lung cancer TECHNIQUE: Multiple CTA images of the chest were obtained after the intravenous administration of 120 ml Optiray 320. Coronal and sagittal MIPS were obtained from the axial data set and were submitted for review. All measurements were obtained according to NASCET criteria. A dose lowering technique was utilized adhering to the principles of ALARA. COMPARISON: Chest radiograph of same day, chest CT 01/03/2021 FINDINGS: CTA: The heart is normal in size without pericardial effusion. Mild coronary artery calcifications. There is no thoracic aortic aneurysm or dissection. Patency of the imaged great vessels. Left subclavian [id number]-[id number] catheter distal tip terminates within the SVC. The pulmonary artery is opacified to the level of the subsegmental branches and demonstrates no filling defects to suggest th romboembolic disease. CT CHEST: Unremarkable thyroid. Calcified pretracheal lymph nodes. No pathologically enlarged lymph nodes of the chest identified. No pneumothorax or pleural effusion. Severe emphysema. Bronchial wall thickening suggestive of bronchitis. 8 x 6 mm nodular opacity of the left upper lobe on image 177 is unchanged. 8 mm nodular opacity of the right upper lobe on image 208 is unchanged from comparison. 9 x 5 mm nodular focus of the right upper lobe on image 190 is also unchanged. No new or enlarging pulmonary nodules identified. Central airways are patent. No pneumoperitoneum. Hepatic steatosis. No acute process of the imaged upper abdomen. Unremarkable soft tissues. No acute fracture. No suspicious lytic or blastic osseous lesions. IMPRESSION: 1. No pulmonary emboli. 2. Severe emphysema with bronchitis. 3. Numerous irregular bilateral solid pulmonary nodules appear unchanged from comparison. 4. Hepatic steatosis. 5. Additional findings as above. ACT 112: Negative or not required by law. The above report was generated using voice recognition software. It may contain grammatical, syntax or spelling errors. Electronically signed by: Nick Biggs M.D. 01/15/2021 11:29 AM Discharge Plan Visit Data Chief Complaint: Chest Pain Stated Complaint: chest pain/sob/back pain ED Provider: Bon Jensen Discharge Problem: Acute non-ST elevation myocardial infarction (NSTEMI), Chest pain, Abnormal EKG Patient Disposition: Admitted As Inpatient Condition: Good Discharge Instructions Interventions: ED Discharge Assessment Last Done: 01/15/21 13:00 Forms Stand Alone Forms: [email or web address] Prescriptions Prescriptions: No Action ondansetron HCl [Zofran] 4 mg tablet 4 mg PO DAILY PRN (Reason: nausea and vomiting) Qty: 30 RF: 2 gabapentin 600 mg tablet 600 mg PO TID 30 Days Qty: 90 RF: 5 pantoprazole 40 mg tablet,delayed release (DR/EC) 40 mg PO QAM Qty: 90 RF: 3 prednisone 10 mg tablet 10 mg PO DAILY Qty: 90 RF: 3 albuterol sulfate 2.5 mg /3 mL (0.083 %) solution for nebulization 2.5 mg inhalation Q4H PRN (Reason: COPD) Qty: 180 RF: 5 ipratropium bromide 0.02 % solution 2.5 ml inhalation Q4H PRN (Reason: COPD) Qty: 180 RF: 5 Incruse Ellipta 62.5 mcg/actuation blister with device 1 inh INH QPM Qty: 3 RF: 1 Breo Ellipta 100-25 mcg/dose blister with device 1 inh inhalation QAM Qty: 60 RF: 2 azithromycin 250 mg tablet 250 mg PO 3XWK Qty: 15 RF: 5 albuterol sulfate 90 mcg/actuation HFA aerosol inhaler 2 puff inhalation Q6H PRN (Reason: Shortness Of Breath Or Wheezing) Qty: 18 RF: 3 Daliresp 500 mcg tablet 500 mcg PO DAILY Qty: 60 RF: 2 Daliresp 250 mcg tablet 250 mcg PO DAILY 14 Days Qty: 14 RF: 0 duloxetine 60 mg capsule,delayed release(DR/EC) 60 mg PO DAILY Qty: 30 RF: 2 cyanocobalamin (vitamin B-12) [Vitamin B-12] 2,000 mcg Tablet Extended Release 2,000 mcg PO DAILY RF: 0 azelastine 137 mcg (0.1 %) aerosol,spray 2 spray INTNAS BID PRN (Reason: ALLERGIC RHINITIS) RF: 0 Referrals Referrals: Isak Zuniga III, MD [Primary Care Provider] - Discharge Problem: Chest pain Qualifiers: Chest pain type: unspecified Qualified Code(s): R07.9 - Chest pain, unspecified
--- NOTE | 2021-01-15 10:22 | XRay Report ---
XR chest 1V portable CLINICAL HISTORY: Atypical chest pain. History of lung cancer. COMPARISON STUDY: Chest CT January 03, 2021. FINDINGS: Left subclavian Mnnjyu-a-Xzno is in place. There is severe emphysema. No pneumothorax or pl eural effusion is present. Mild lower lung interstitial thickening is unchanged. IMPRESSION: 1. No acute cardiopulmonary findings. No change in lower lung interstitial thickening. 2. Severe emphysema. ACT 112: Negative or not required by law. Electronically signed by: Hansel Lopez M.D. 01/15/2021 10:21 AM
[2021-01-15] MEDS ORDERED: HYDROmorphone INJ 1 MG/ML SYRINGE IV STA (10:35)
[2021-01-15 10:37] LABS: D Dimer 470 ug/L FEU (0-500); INR 0.9 (0.9-1.1); Partial Thromboplastin Ratio 0.9; Partial Thromboplastin Time 23.6 Seconds (21.0-31.0); Prothrombin Time 9.2 Seconds (9.0-12.0)
[2021-01-15 10:39] LABS: Albumin Level 3.4 gm/dl (3.4-5.0); BUN Creatinine Ratio 8.5 (10-20); Calcium 8.6 mg/dl (8.5-10.1); Creatinine Clr Calc Pharmacy 77.7 ml/min; Est GFR (African American) 83.2; Est GFR (Non-African American) 71.8; Potassium 3.3 mmol/L (3.5-5.1)
[2021-01-15 10:49] LABS: Albumin Globulin Ratio 0.9 (0.9-2); Bilirubin,Total 0.6 mg/dl (0.2-1); Globulin 3.6 gm/dl (2.5-4.0); Troponin I 0.803 ng/ml (0-0.045)
[2021-01-15] MEDS ORDERED: Heparin IV Adult Wt-Based Standard WITH Bolus Protocol IV STA (10:49)
[2021-01-15 10:51] LABS: Basophils # (auto) 0.06 K/uL (0-0.2); Basophils % (auto) 0.7 %; Eosinophils # (auto) 0.18 K/uL (0-0.5); Eosinophils % (auto) 2.1 %; Hematocrit (blood only) 50.7 % (42-52); Immature Granulocytes # (auto) 0.07 K/uL (0.00-0.02); Immature Granulocytes % (auto) 0.8 %; Lymphocytes # (auto) 1.66 K/uL (1.2-3.4); Lymphocytes % (auto) 19.5 %; Mean Corpuscular Hemoglobin 30.4 pg (25-34); Mean Corpuscular Hgb Conc 33.5 g/dL (32-36); Mean Corpuscular Volume 90.7 fL (80-100); Mean Platelet Volume 9.6 fL (7.4-10.4); Monocytes # (auto) 0.72 K/uL (0.11-0.59); Monocytes % (auto) 8.5 %; Neutrophils # (auto) 5.83 K/uL (1.4-6.5); Neutrophils % (auto) 68.4 %; Platelet Count 263 K/uL (130-400); RDW Coefficient of Variation 15.5 % (11.5-14.5); RDW Standard Deviation 51.6 fL (36.4-46.3); Red Blood Count 5.59 M/uL (4.7-6.1); White Blood Count 8.52 K/uL (4.8-10.8)
[2021-01-15] MEDS ORDERED: HEPARIN SODIUM/DEXTROSE 25,000 UNITS/500 ML BAG IV SCH ×2 (11:00→11:45)
[2021-01-15] MEDS ORDERED: OPTIRAY 320 125ml IV ONE (11:05)
--- NOTE | 2021-01-15 11:31 | CT Scan Report ---
CT angio chest PE protocol CT DOSE: 370.76 mGy.cm HISTORY: 60 years-old Male with PE. Acute chest pain with history of lung cancer TECHNIQUE: Multiple CTA images of the chest were obtained after the intravenous administration of 120 ml Optiray 320. Coronal and sagittal MIPS were obtained from the axial data set and were submitted for review. All measurements were obtained according to NASCET criteria. A dose lowering technique w as utilized adhering to the principles of ALARA. COMPARISON: Chest radiograph of same day, chest CT 01/03/2021 FINDINGS: CTA: The heart is normal in size without pericardial effusion. Mild coronary artery calcifications. There is no thoracic aortic aneurysm or dissection. Patency of the imaged great vessels. Left subclavian In fuse-a-Port catheter distal tip terminates within the SVC. The pulmonary artery is opacified to the l evel of the subsegmental branches and demonstrates no filling defects to suggest thromboembolic disea se. CT CHEST: Unremarkable thyroid. Calcified pretracheal lymph nodes. No pathologically enlarged lymph nodes of th e chest identified. No pneumothorax or pleural effusion. Severe emphysema. Bronchial wall thickening suggestive of bronchitis. 8 x 6 mm nodular opacity of the left upper lobe on image 177 is unchanged. 8 mm nodular opacity of the right upper lobe on image 208 is unchanged from comparison. 9 x 5 mm nodu lar focus of the right upper lobe on image 190 is also unchanged. No new or enlarging pulmonary nodul es identified. Central airways are patent. No pneumoperitoneum. Hepatic steatosis. No acute process of the imaged upper abdomen. Unremarkable so ft tissues. No acute fracture. No suspicious lytic or blastic osseous lesions. IMPRESSION: 1. No pulmonary emboli. 2. Severe emphysema with bronchitis. 3. Numerous irregular bilateral solid pulmonary nodules appear unchanged from comparison. 4. Hepatic steatosis. 5. Additional findings as above. ACT 112: Negative or not required by law. The above report was generated using voice recognition software. It may contain grammatical, syntax o r spelling errors. Electronically signed by: Nick Biggs M.D. 01/15/2021 11:29 AM
[2021-01-15] MEDS ORDERED: STAT IV Infusion **Titration per Protocol STA (11:35)
[2021-01-15] MEDS ORDERED: HEPARIN SOD (PORCINE) 1000 UNIT/ML ONE (11:36)
[2021-01-15] MEDS ORDERED: NITROGLYCERIN SL 0.4 MG/TAB TAB SL STA (11:38)
[2021-01-15] MEDS ORDERED: NITROGLYCERIN SL 0.4 MG/TAB TAB ONE ×2 (11:39→11:53)
[2021-01-15] MEDS ORDERED: NITROGLYCERIN SL 0.4 MG/TAB TAB SL PRN (11:52)
[2021-01-15] MEDS ORDERED: HEPARIN SOD (PORCINE) 1000 UNIT/ML IV ONE (12:15)
[2021-01-15] MEDS ORDERED: Heparin IV Adult Wt-Based Low-Dose WITH Bolus Protocol IV SCH (12:20)
[2021-01-15] MEDS: NITROGLYCERIN/D5W 100MCG/ML 250 ML IV SCH (12:26)
--- NOTE | 2021-01-15 12:30 | History & Physical Report ---
Date of Service January 15, 2021 Assessment & Plan (1) NSTEMI (non-ST elevated myocardial infarction): Chest pain with elevated troponin and anterior ST depressions. ASA 324mg PO given in ER. Continue 81mg PO daily. Ongoing 9/10 pain out of proportion to his EKG and troponin findings - possibly also having non-cardiac pains but unable to to explain elevated troponin outside of NSTEMI Start nitroglycerin drip Start heparin IV low dose bolus and drip NPO Consult cardiology - discussed with Dr Haider, patient will be taken from ER for cardiac catheterization (2) Severe chronic obstructive pulmonary disease: No acute exacerbation suspected. Continue his usual inhalers Breo and Incruse Ellipta or hospital formulary equivalent Continue prednisone 10 mg p.o. daily, Roflumilast 250 mcg p.o. daily. (3) Anxiety: Continue duloxetine 60 mg delayed release p.o. daily (4) GERD (gastroesophageal reflux disease): Continue pantoprazole 40 mg p.o. daily (5) History of lung cancer: Notable history of this. Not currently active. 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 Continue his usual medication regimen with duloxetine as above in addition to gabapentin 600 mg. P.o. 3 times daily. (7) DVT prophylaxis: IV heparin as above Admission and Anticipated Discharge Date Admission Date: January 15, 2021 History of Present Illness Chief Complaint: Chest pain Primary Care Provider: Isak Zuniga MD Isak Browne is a 60-year-old male who presents to the ER with chest pain. He reports this started at 7:30am this morning when he woke up. Severity 9/10. Heaviness. Radiating to left shoulder and jaw. No relief with x1 nitroglycerin he took this morning. Non-pleuritic. No significant relief after aspirin, morphine and Dilaudid given in ER. He reports having a similar pain yesterday morning although less severe which was relieved with x2 nitroglycerin. He recently underwent cardiac evaluation by [facility] with Lexiscan stress testing in October which was negative for inducible ischemia for non-specific intermittent chest pains. Notably he has had prior hospitalizations for severe esophagitis requiring hospitalizations. Thrush diagnosed 02/2018. He denies any current dysphagia or odynophagia. He has a significant history of non-small cell lung cancer with locally advanced disease diagnosed in 2011 s/p chemoradiation. No recurrence on multiple unchanged CTs since 2017. He does have a notable history of a small pulmonary embolism diagnosed in 2016 which was treated with 6 months of Lovenox and he is currently off anticoagulation. In the ER EKG showed anterior ST depressions. Initial troponin 0.8. He was referred to medicine for admission and ongoing management of NSTEMI. Allergies Allergy/AdvReac Type Severity Reaction Status Date / Time No Known Allergies Allergy Verified 01/15/21 10:38 Home Medications Medication Instructions Recorded Confirmed Type ondansetron HCl 4 mg tablet 4 mg PO DAILY PRN #30 tab 12/14/19 01/15/21 Rx cyanocobalamin (vitamin B-12) 2,000 mcg PO DAILY 05/14/20 01/15/21 History [Vitamin B-12] azelastine 2 spray INTNAS BID PRN 07/27/20 01/15/21 History gabapentin 600 mg tablet 600 mg PO TID 30 Days #90 tab 09/17/20 01/15/21 Rx pantoprazole 40 mg tablet,delayed 40 mg PO QAM #90 tab 11/09/20 01/15/21 Rx release prednisone 10 mg tablet 10 mg PO DAILY #90 tab 11/12/20 01/15/21 Rx duloxetine 60 mg capsule,delayed 60 mg PO DAILY #30 cap 12/21/20 01/15/21 Rx release albuterol sulfate 90 mcg/actuation 2 puff INHALATION Q6H PRN #18 g 01/08/21 01/15/21 Rx aerosol inhaler azithromycin 250 mg tablet 250 mg PO 3XWK #15 tab 01/08/21 01/15/21 Rx fluticasone furoate 100 1 inh INHALATION QAM #60 ea 01/08/21 01/15/21 Rx mcg-vilanterol 25 mcg/dose inhalation powder roflumilast 250 mcg tablet 250 mcg PO DAILY 14 Days #14 tab 01/08/21 01/15/21 Rx roflumilast 500 mcg tablet 500 mcg PO DAILY #60 tab 01/08/21 01/15/21 Rx umeclidinium 62.5 mcg/actuation 1 inh INH QPM #3 inhaler 01/08/21 01/15/21 Rx blister powder for inhalation albuterol sulfate 2.5 mg INHALATION Q4H PRN #180 ml 01/09/21 01/15/21 Rx ipratropium bromide 0.02 % 2.5 ml INHALATION Q4H PRN #180 ml 01/09/21 01/15/21 Rx solution for inhalation Past Med/Surg History Medical History Anxiety Asthma Constipation GERD (gastroesophageal reflux disease) H/O pneumothorax History of lung cancer DX 2011-LEFT LOBE/NO SURGERY/RADIATION/CHEMO History of pulmonary embolus (PE) 2017-NO ISSUES SINCE Hypertension NO MEDS Neuropathy Pulmonary emphysema Severe chronic obstructive pulmonary disease SOB (shortness of breath) on exertion Stomach ulcer HX -UNDER CONTROL Surgical History History of colonoscopy History of esophagogastroduodenoscopy (EGD) History of lung surgery STENT TO [id number]? History of vascular access device PORT PLACEMENT-UPPER LEFT IN PLACE S/P laparoscopic cholecystectomy Family History Mother Coronary heart disease Father , age 90 COPD (chronic obstructive pulmonary disease) Diabetes Lung cancer Aunt Cancer Uncle Diabetes Brother Hypertension Other No family history of bleeding disorder Social History Smoking Status: Former smoker packs per day: 1; Years Smoked: 37; Cigarettes Per Day: does smoke occ cigar when golfing; Second Hand Exposure: Yes; Hx Alcohol Use: No Hx Substance Use: No Preferred Language: Omani Communication Ability: Effective Visual Impairment: No Limitations Hearing Ability: Normal Sebd Teacher Required: No Beliefs That Will Affect Care: None marital status: Single marital status details: but has 1 daughter Current Living Situation: Alone Current Living Situation Comment: brother stays with pt periodically current occupational status: employed and disabled 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 Feels Safe at Home: Yes Assistive Devices: Denture - Upper and Denture - Lower Review of Systems Review of Systems: All systems reviewed & are unremarkable except as noted in HPI & below Physical Exam Constitutional: well developed, well nourished and + acute distress (Ongoing chest pain) Eyes: + anicteric sclerae; normal pupil size ENMT: external ear and nose normal, oropharynx normal Neck: trachea midline, no thyromegaly Respiratory: normal respiratory effort, lungs clear to auscultation Cardiovascular: Rate/Rhythm: regular rhythm and + tachycardic Heart Sounds: no murmur Extremities: normal capillary refill; no calf tenderness and no pedal edema Gastrointestinal (Abdomen): normal bowel sounds, soft, nontender, no hepatosplenomegaly Musculoskeletal: no cyanosis or clubbing, extremities motor strength 5/5 Skin: no rashes, warm and dry Neurologic: moves all extremities and awake; not confused Psychiatric: A+Ox3, euthymic affect Results & Data Results & Data ([facility]) Vital Signs (Past 12 Hours) Vital Signs Temp Pulse Pulse Resp BP BP Pulse Ox 01/15/21 11:14 111 H 22 136/98 92 01/15/21 09:45 96 01/15/21 09:39 36.8 C 123 H 18 135/89 97 Diagnostic Findings XR chest 1V portable IMPRESSION: 1. No acute cardiopulmonary findings. No change in lower lung interstitial thickening. 2. Severe emphysema. CT angio chest PE protocol IMPRESSION: 1. No pulmonary emboli. 2. Severe emphysema with bronchitis. 3. Numerous irregular bilateral solid pulmonary nodules appear unchanged from comparison. 4. Hepatic steatosis. 5. Additional findings as above. Medications Administered ER medications given: Aspirin 324 mg p.o. NSS 500 mL bolus Dilaudid 1 mg IV Morphine 4 mg IV Ondansetron 4 mg IV Heparin low-dose bolus and drip ECG Rate (beats per minute): 119 Rhythm: sinus tachycardia Findings: + ST depression (Anterior) Comparison ECG Date: from (August 31, 2020) Change: the following changes noted (ST depressions in anterior leads are new) Code Status & VTE Plan Code Status DNR - he wishes to have all other treatment outside of cardiac arrest including intubation VTE Prophylaxis Plan VTE Prophylaxis will be ordered: Yes PG Care Time/CCT Total # of Minutes Spent Total Time Spent with Patient: Total time spent is greater than 50% in coordination of care (as documented) at patient's floor/unit and/or counseling patient: Coding Level of Care Code 49627 Initial Inpt Care Lvl 3 Diagnoses NSTEMI (non-ST elevated myocardial infarction) I21.4 Severe chronic obstructive pulmonary disease J44.9 Anxiety F41.9 GERD (gastroesophageal reflux disease) K21.9 Esophagitis presence: esophagitis presence not specified History of lung cancer Z85.118 Neuropathy G62.9 DVT prophylaxis Z29.9 (1) GERD (gastroesophageal reflux disease) Esophagitis presence: esophagitis presence not specified Qualified Code(s): K21.9 - Gastro-esophageal reflux disease without esophagitis
[2021-01-15] MEDS ORDERED: POTASSIUM CHLORIDE CRTAB 20 MEQ TABCR PO STA (12:36)
--- NOTE | 2021-01-15 12:44 | Cardiology Consultation ---
Date of Consultation January 15, 2021 Assessment & Plan (1) NSTEMI (non-ST elevated myocardial infarction): 60-year-old patient presented emergency department with chest discomfort, and elevated cardiac enzymes. ECG with mild anterior ST depressions. Currently describes 7/10 chest discomfort despite intravenous nitroglycerin infusion at 5 mcg/min, morphine, and intravenous heparin. Recommend urgent cardiac catheterization with coronary angiography. Per discussion, his lung cancer is in remission, last chemotherapy 2011. Patient is a drug-eluting stent candidate. Risk, benefits, and alternatives to procedure discussed at length. He is agreeable. Further recommendations pending result of procedure. History of Present Illness Reason for Consultation: Chest pain, elevated trop Requesting Physician: dr. Mi Attending Physician: Dr. Mi History of Present Illness 60-year-old patient presents to the emergency department with chest pain. Notes an episode of chest pain yesterday lasting several hours. The pain slowly resolved. This morning he again awoke with severe, substernal chest discomfort radiating to the base of his neck and intermittently to his left shoulder. Describes the pain as sharp and heavy. Notes associated shortness of breath. No diaphoresis. Denies nausea or vomiting. Discomfort improved to 7/10 with sublingual nitroglycerin. ECG with ST depression in the anterior leads. Evaluated in the [facility] cardiology office later this year due to chest discomfort. Lexiscan nuclear stress test negative for inducible ischemia 10/2020. Echocardiogram performed in October demonstrating ejection fraction of 50-54% with borderline diffuse left ventricular hypokinesis. Allergies Allergy/AdvReac Type Severity Reaction Status Date / Time No Known Allergies Allergy Verified 01/15/21 10:38 Home Medications Medication Instructions Recorded Confirmed Type ondansetron HCl 4 mg tablet 4 mg PO DAILY PRN #30 tab 12/14/19 01/15/21 Rx cyanocobalamin (vitamin B-12) 2,000 mcg PO DAILY 05/14/20 01/15/21 History [Vitamin B-12] azelastine 2 spray INTNAS BID PRN 07/27/20 01/15/21 History gabapentin 600 mg tablet 600 mg PO TID 30 Days #90 tab 09/17/20 01/15/21 Rx pantoprazole 40 mg tablet,delayed 40 mg PO QAM #90 tab 11/09/20 01/15/21 Rx release prednisone 10 mg tablet 10 mg PO DAILY #90 tab 11/12/20 01/15/21 Rx duloxetine 60 mg capsule,delayed 60 mg PO DAILY #30 cap 12/21/20 01/15/21 Rx release albuterol sulfate 90 mcg/actuation 2 puff INHALATION Q6H PRN #18 g 01/08/21 01/15/21 Rx aerosol inhaler azithromycin 250 mg tablet 250 mg PO 3XWK #15 tab 01/08/21 01/15/21 Rx fluticasone furoate 100 1 inh INHALATION QAM #60 ea 01/08/21 01/15/21 Rx mcg-vilanterol 25 mcg/dose inhalation powder roflumilast 250 mcg tablet 250 mcg PO DAILY 14 Days #14 tab 01/08/21 01/15/21 Rx roflumilast 500 mcg tablet 500 mcg PO DAILY #60 tab 01/08/21 01/15/21 Rx umeclidinium 62.5 mcg/actuation 1 inh INH QPM #3 inhaler 01/08/21 01/15/21 Rx blister powder for inhalation albuterol sulfate 2.5 mg INHALATION Q4H PRN #180 ml 01/09/21 01/15/21 Rx ipratropium bromide 0.02 % 2.5 ml INHALATION Q4H PRN #180 ml 01/09/21 01/15/21 Rx solution for inhalation atorvastatin 80 mg PO QAM 30 Days #60 tab 01/16/21 Rx metoprolol tartrate 25 mg PO BID 30 Days #60 tab 01/16/21 Rx nitroglycerin [Nitrostat] 0.4 mg SUBLINGUAL PRN PRN 10 Days 01/16/21 Rx #10 tab omeprazole 40 mg PO DAILY 28 Days #28 cap 01/16/21 Rx Patient History Medical History Anxiety Asthma Constipation GERD (gastroesophageal reflux disease) H/O pneumothorax History of lung cancer DX 2011-LEFT LOBE/NO SURGERY/RADIATION/CHEMO History of pulmonary embolus (PE) 2017-NO ISSUES SINCE Hypertension NO MEDS Neuropathy Pulmonary emphysema Severe chronic obstructive pulmonary disease SOB (shortness of breath) on exertion Stomach ulcer HX -UNDER CONTROL Surgical History History of colonoscopy History of esophagogastroduodenoscopy (EGD) History of lung surgery STENT TO [id number]? History of vascular access device PORT PLACEMENT-UPPER LEFT IN PLACE S/P laparoscopic cholecystectomy Family History Mother Coronary heart disease Father , age 90 COPD (chronic obstructive pulmonary disease) Diabetes Lung cancer Aunt Cancer Uncle Diabetes Brother Hypertension Other No family history of bleeding disorder Social History Smoking Status: Former smoker packs per day: 1; Years Smoked: 37; Cigarettes Per Day: does smoke occ cigar when golfing; Second Hand Exposure: Yes; Hx Alcohol Use: No Hx Substance Use: No Preferred Language: Kenyan Communication Ability: Effective Visual Impairment: No Limitations Hearing Ability: Normal Spiral Runner Required: No Beliefs That Will Affect Care: None marital status: Single marital status details: but has 1 daughter Current Living Situation: Alone Current Living Situation Comment: brother stays with pt periodically current occupational status: employed and disabled 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 Feels Safe at Home: Yes Assistive Devices: None Review of Systems Review of Systems: All systems reviewed & are unremarkable except as noted in Subjective Physical Exam Constitutional: well nourished, + acute distress and + ill appearing Respiratory: no respiratory distress and no labored breathing Auscultation: + diminished lung sounds; no crackles, no rales, no rhonchi and no wheezes Cardiovascular: Rate/Rhythm: regular rate and regular rhythm Heart Sounds: normal S1 and normal S2; no murmur Vessels: no JVD Extremities: no edema Gastrointestinal (Abdomen): Inspection/Auscultation: normal bowel sounds Percussion/Palpation: abdomen soft; abdomen nontender, no guarding and abdomen not rigid Neurologic: moves all extremities; no focal motor deficits Motor/Sensory: no tremor Psychiatric: Orientation: alert, oriented x 3 and cooperative Results & Data ([facility]) Vital Signs (Past 12 Hours) Vital Signs Temp Pulse Pulse Resp BP BP Pulse Ox 01/15/21 12:33 110 H 19 120/76 96 01/15/21 11:14 111 H 22 136/98 92 01/15/21 09:45 96 01/15/21 09:39 36.8 C 123 H 18 135/89 97
--- NOTE | 2021-01-15 12:54 | Pre Anesthesia Assessment ---
Date of Service January 15, 2021 Pre Sedation Assessment Vital Signs Temp Pulse Pulse Resp BP BP Pulse Ox 01/15/21 14:21 107 H 16 104/78 94 01/15/21 12:33 110 H 19 120/76 96 01/15/21 11:14 111 H 22 136/98 92 01/15/21 09:45 96 01/15/21 09:39 36.8 C 123 H 18 135/89 97 Cardiovascular RRR, no murmur, no edema Respiratory no labored breathing + diminished lung sounds; no crackles, no rales, no rhonchi and no wheezes Pre-Sedation Airway Assessment Smoking Status: Former smoker Hx Sleep Apnea: No Hx Difficult Intubation: No ASA: ASA4 Procedure Planning Contraindications for Sedation: none Current Medications Reviewed: Yes Notes The planned sedation has been discussed with the patient. Informed Consent was obtained. I have identified the patient, determined the appropriateness of sedation and have assessed the patient immediately prior to the procedure. All medicine(s) and interventions are by my order.
[2021-01-15] MEDS ORDERED: HEPARIN (PORCINE) 1000 UNIT/ML 10 ML (CATH LAB USE ONLY) ONE (13:09)
[2021-01-15] MEDS ORDERED: fentaNYL citrate 100 MCG/2 ML VIAL ONE (13:09)
[2021-01-15] MEDS ORDERED: niCARdipine HCL INJ 2.5 MG/ML 10 ML AMP ONE (13:09)
[2021-01-15] MEDS ORDERED: MIDAZOLAM HCL 1 MG/ML 2ML VIAL ONE ×3 (13:09→15:01)
[2021-01-15] MEDS ORDERED: NITROGLYCERIN/D5W 100MCG/ML 20ML SYR ONE (13:10)
--- NOTE | 2021-01-15 13:35 | Post Anesthesia Assessment ---
Date of Service January 15, 2021 Post Sedation Assessment Vital Signs Temp Pulse Pulse Resp BP BP Pulse Ox 01/15/21 14:21 107 H 16 104/78 94 01/15/21 12:33 110 H 19 120/76 96 01/15/21 11:14 111 H 22 136/98 92 01/15/21 09:45 96 01/15/21 09:39 36.8 C 123 H 18 135/89 97 Recovery Score Activity: Moves 4 extremities Respiration: Deep Breath/Cough Circulation: +/-20% PreAnes Value Consciousness: Arouseable (by name) Oxygen Saturation: O2 needed for >90% Discharge Sedation Level of Care: Phase I Post Sedation Plan On clinical assessment, the patient appears to have tolerated the sedation without complications. Patient is recovering as anticipated. Patient will continue to be monitored by nursing and may be discharged when sedation discharge criteria are met per below protocol. Upon Completions of procedure up to 15 minutes continue every 5 minute vital signs and the P.A.R. score; then discharge to a Phase I or Fast Track to Phase II per the following guidelines: * Discharge Patient to appropriate Phase II area if PAR is 8 or greater or return to pre- procedure baseline. The post - procedure orders will be as directed. * If PAR score is less than 8 or not return to pre-procedure baseline then patient will follow Phase I monitoring till PAR is reached for Phase II. The Phase I may be done in procedure room or may call to secure a Phase I area. * If naloxone or flumazenil are used for reversal, hold in Phase I for continued monitoring from when last reversal dose was given for a minimum of 60 minutes or longer pending the nurse and/or physician discretion of patient condition before discharge to Phase II. Please call the Sedation Physician to re-evaluate and complete post-note for discharge to Phase II area. Do NOT discharge from procedure sedation or Phase 1 until post- sedation evaluation note is complete by procedure /sedation MD Sedation Discharge Instructions to be given to the patient at discharge to home.
--- NOTE | 2021-01-15 13:42 | Cardiac Catheterization ---
Cardiac Cath Procedure Full Procedure Date January 15, 2021 Pre-Procedure Diagnosis Pre-Procedure Diagnosis: Non STEMI AUC Score AUC Score: 8 Post-Procedure Diagnosis Post-Procedure Diagnosis: Severe CAD and Normal Intracardiac Pressures Procedure(s) Performed Procedure(s) Performed: Coronary Angiography and Left Heart Cath Sugar Drier Rodo Haider DO Supervisor Picking Crew(s) Elana DEICER REPAIRER Estimated Blood Loss Estimated Blood Loss: 3cc Medication(s) Medication(s): Fentanyl, Heparin, Lidocaine 1%, Nicardipine, Nitroglycerin and Versed Summary of Findings 100% proximal Lcx Hemodynamics Rest Ao:: 89/63/83 Final Ao: 94/71/81 LV: 94/4/7 Recommendations Recommendations: PCI without planned CABG Specimens Specimens: None Radiation Exposure (mGy) 329 Contrast (mls) 30 Fluids (cc crystalloids) Fluids (cc crystalloids): 250Nss Drains Drains: N/A Anesthesia Moderate sedation. Start 1309. End 1330. Sedation monitor: Armando ESPINO. Procedural Complication(s) None Disposition Cathlab for PCI with Dr. Yousif I attest to the content of the Intraoperative Record and any orders documented therein. Any exceptions are noted below. ACC Data: Door Technician Cardiac Status Clinical evaluation leading to the procedure 60-year-old patient present to the ER with chest, neck, shoulder discomfort. ECG with mild anterior ST depression. Initial troponin elevated 0.8. Intravenous heparin and nitroglycerin initiated in the ER. Brought to the Door Technician urgently for coronary angiography due to ongoing anginal symptoms at rest. CAD Presenation: Non STEMI Anginal Classification: CCS IV Heart Failure: No Cardiogenic Shock within 24 Hours: No Cardiac Arrest within 24 Hours: No Imaging Studies Past 6 Months: No Stress Studies Past 6 Months: Yes Stress Testing w/SPECT MPI: Yes - Negative STEMI OR Non-STEMI Symptom Onset Date: 01/15/21 Symptom Onset Time: 10:00 Thrombolytics: No Coronary Anatomy Dominant: Right Left Main (% Stenosis): Mid (10%) LAD (% Stenosis): Proximal (30%, ectatic) and Mid (Ectatic, diffuse 20-30%) D1 (% Stenosis): Normal Circumflex (% Stenosis): Proximal (100%) RCA (% Stenosis): Proximal (20%) R PDA (% Stenosis): Normal R PL1 (% Stenosis): Normal Ramus (% Stenosis): Proximal (40%) Diagnostic Physicians Name: Rodo Haider DO Status: Urgent Closure Device Percutaneous Entry Location: Radial Closure Device: Radial Band Recommendations: PCI without planned CABG Intraprocedure Events Significant Disection: No Perforation: No
[2021-01-15 13:49] LABS: Influenza A virus by PCR Negative (Neg); Influenza B virus by PCR Negative (Neg); RSV by PCR Negative (Neg); SARS CoV2 RNA(COVID-19) InHosp NEGATIVE (Negative)
--- NOTE | 2021-01-15 14:17 | Post Anesthesia Assessment ---
Date of Service January 15, 2021 Post Sedation Assessment Vital Signs Temp Pulse Pulse Resp BP BP Pulse Ox 01/15/21 12:33 110 H 19 120/76 96 01/15/21 11:14 111 H 22 136/98 92 01/15/21 09:45 96 01/15/21 09:39 98.2 F 123 H 18 135/89 97 Recovery Score Activity: Moves 4 extremities Respiration: Deep Breath/Cough Circulation: +/-20% PreAnes Value Consciousness: Arouseable (by name) Oxygen Saturation: O2 needed for >90% Discharge Sedation Level of Care: Fast Track Phase II Post Sedation Plan On clinical assessment, the patient appears to have tolerated the sedation without complications. Patient is recovering as anticipated. Patient will continue to be monitored by nursing and may be discharged when sedation discharge criteria are met per below protocol. Upon Completions of procedure up to 15 minutes continue every 5 minute vital signs and the P.A.R. score; then discharge to a Phase I or Fast Track to Phase II per the following guidelines: * Discharge Patient to appropriate Phase II area if PAR is 8 or greater or return to pre- procedure baseline. The post - procedure orders will be as directed. * If PAR score is less than 8 or not return to pre-procedure baseline then patient will follow Phase I monitoring till PAR is reached for Phase II. The Phase I may be done in procedure room or may call to secure a Phase I area. * If naloxone or flumazenil are used for reversal, hold in Phase I for continued monitoring from when last reversal dose was given for a minimum of 60 minutes or longer pending the nurse and/or physician discretion of patient condition before discharge to Phase II. Please call the Sedation Physician to re-evaluate and complete post-note for discharge to Phase II area. Do NOT discharge from procedure sedation or Phase 1 until post- sedation evaluation note is complete by procedure /sedation MD Sedation Discharge Instructions to be given to the patient at discharge to home.
[2021-01-15] MEDS ORDERED: CLOPIDOGREL BISULFATE 300 MG TAB ONE (14:20)
--- NOTE | 2021-01-15 14:31 | Cardiac Catheterization ---
[facility] Data: Scale Shooter Cardiac Status Clinical evaluation leading to the procedure CAD Presenation: Non STEMI Anginal Classification: CCS IV Heart Failure: No Cardiogenic Shock within 24 Hours: No Cardiac Arrest within 24 Hours: No Imaging Studies Past 6 Months: No Stress Studies Past 6 Months: No Diagnostic Physicians Name: Chapin Yousif MD Status: Urgent Closure Device Percutaneous Entry Location: Radial Closure Device: Radial Band Recommendations: PCI without planned CABG PCI Indication: PCI for high risk Non-SAGE Lesion Segment Name: mid circumflex Culprit Artery: Yes Stenosis Prior to Rx (%): 100 Chronic Total Occlusion: No IVUS: No FFR: No Pre-Procedure JOHN Flow: 0 Previously Treated Lesion: No Lesion Complexity: High/C Lesion Length (mm): 12 Thrombus Present: Yes Bifurcation Lesion: Yes Guidewire Across Lesion: Stenosis Post-Procedure (%): 0 Post-Procedure JOHN Flow: 3 Devices(s) Deployed: Yes Yes Intraprocedure Events Significant Disection: No Perforation: No Cardiac Cath Procedure Full Procedure Date January 15, 2021 Pre-Procedure Diagnosis Pre-Procedure Diagnosis: Non STEMI AUC Score AUC Score: 8 Post-Procedure Diagnosis Post-Procedure Diagnosis: Severe CAD and Successful PCI Procedure(s) Performed Procedure(s) Performed: Coronary Angiography and Drug Eluting Stent English Instructor Chapin Yousif MD Hand Model(s) Elana DOBBINS Estimated Blood Loss Estimated Blood Loss: 5 Medication(s) Medication(s): Clopidogrel, Fentanyl, Heparin, Lidocaine 1%, Nicardipine, Nitroglycerin and Versed Summary of Findings Indication: High risk NSTEMI Access: 6 Fr right radial artery Catheters: EBU 3.5 guide Findings: For full details of patient's coronary angiography please see cath report dictated by Dr. Haider. Briefly, patient found to have severe single vessel disease with a acute on chronic mid circumflex occlusion with faint left to left and right to left collaterals. Decision to proceed with PCI. -- PCI -- Antithrombotic therapy: Heparin, clopidogrel Procedure: Left main cannulated with EBU 3.5 guide [employer] 50 wire passed across lesion into distal OM 2 Mid circumflex lesion predilated with 2.5 compliant balloon Prowater wire placed into distal circumflex Dilated lesion stented with 3.0 x 18 mm Xience drug-eluting stent from mid circumflex into OM 2 Distal circumflex rewired through stent struts with pilot highway [employer] 50 wire Stent post-dilated with 3.5 noncompliant balloon IC vasodilators administered for spasm Residual flow-limiting ostial stenosis in distal circumflex. Distal circumflex stenosis dilated through stent struts with 2.0 balloon Post procedure JOHN 3 flow, stent well expanded with minimal residual stenosis and minimal residual stenosis in jailed distal circumflex. Arterial Closure: TR band Summary: 1. Successful PCI of mid circumflex into OM 2 with single drug-eluting stent (3.0 x 18 mm Xience; postdilated with 3.5 NC). -Angioplasty to jailed distal circumflex through stent struts with 2.0 balloon Recommendations: To PCU for continued monitoring Loaded with clopidogrel 600 mg in Scale Shooter Continue dual-antiplatelet therapy for 1 year Consult cardiac Rehab Hemodynamics Rest Ao:: 94/71/81 Final Ao: 88// LV: -- Recommendations Recommendations: PCI without planned CABG Specimens Specimens: None Radiation Exposure (mGy) 2486 Contrast (mls) 125 Fluids (cc crystalloids) Fluids (cc crystalloids): 250Nss Drains Drains: N/A Anesthesia Moderate sedation. Start 1337. End 1414. Sedation monitor: Armando ESPINO. Procedural Complication(s) None Disposition PCU I attest to the content of the Intraoperative Record and any orders documented therein. Any exceptions are noted below. [facility] Card Cath Procedure Codes Moderate Sedation Procedure 1: Sedation/Anesthesia: 13946 Mod Sedation by the same physician; Ea [id number] Minutes Stenting Procedure 1: Cardiovascular Stent Procedures: 09228 Perc transluminal revascularization of acute sub/total occl, aMI PG Care Time/CCT Total # of Minutes Spent Total Time Spent with Patient: Total time spent is greater than 50% in coordination of care (as documented) at patient's floor/unit and/or counseling patient:
[2021-01-15] MEDS ORDERED: ACETAMINOPHEN 325 MG TAB PO PRN (14:40)
[2021-01-15] MEDS ORDERED: SODIUM CHLORIDE 0.9% 1000ML 1,000 ML IV SCH (14:45)
[2021-01-15] MEDS ORDERED: ICU PROTOCOL FOR HYPERGLYCEMIA PRN (15:56)
[2021-01-15] MEDS ORDERED: ONDANSETRON 4 MG OD TAB PO PRN (16:15)
[2021-01-15] MEDS: GABAPENTIN 600 MG TAB PO SCH ×2 (17:34→21:15)
[2021-01-15] MEDS: UMECLIDINIUM BROMIDE 62.5MCG/BLISTER 7 PUFFS/INHALER INH SCH (21:15)
[2021-01-15] MEDS: ASTELIN - ORDER AWAITING ACTION SCH (23:39)
[2021-01-16] MEDS ORDERED: HEPARIN 100 UNIT/ML 5ML FLUSH FLUSH PRN (02:19)
[2021-01-16 04:46] LABS: Basophils # (auto) 0.04 K/uL (0-0.2); Basophils % (auto) 0.4 %; Eosinophils # (auto) 0.13 K/uL (0-0.5); Eosinophils % (auto) 1.4 %; Hematocrit (blood only) 45.8 % (42-52); Hemoglobin 15.5 g/dL (14.0-18.0); Immature Granulocytes # (auto) 0.05 K/uL (0.00-0.02); Immature Granulocytes % (auto) 0.5 %; Lymphocytes # (auto) 1.59 K/uL (1.2-3.4); Lymphocytes % (auto) 17.1 %; Mean Corpuscular Hemoglobin 30.5 pg (25-34); Mean Corpuscular Hgb Conc 33.8 g/dL (32-36); Mean Platelet Volume 9.4 fL (7.4-10.4); Monocytes # (auto) 0.75 K/uL (0.11-0.59); Monocytes % (auto) 8.1 %; Neutrophils # (auto) 6.73 K/uL (1.4-6.5); Neutrophils % (auto) 72.5 %; Platelet Count 248 K/uL (130-400); RDW Coefficient of Variation 15.5 % (11.5-14.5); RDW Standard Deviation 51.6 fL (36.4-46.3); Red Blood Count 5.09 M/uL (4.7-6.1); White Blood Count 9.29 K/uL (4.8-10.8)
[2021-01-16 05:07] LABS: BUN Creatinine Ratio 9.3 (10-20); Calcium 7.9 mg/dl (8.5-10.1); Creatinine Clr Calc Pharmacy 88.8 ml/min; Est GFR (African American) 94.4; Est GFR (Non-African American) 81.4; Potassium 3.7 mmol/L (3.5-5.1)
[2021-01-16 05:20] LABS: Troponin I 10.3 ng/ml (0-0.045)
[2021-01-16 06:32] LABS: Estimated Average Glucose 163 mg/dl; Hemoglobin A1C 7.3 % (4.5-5.6)
--- NOTE | 2021-01-16 06:35 | Electrocardiogram Report ---
Test Reason : Blood Pressure : / mmHG Vent. Rate : 119 BPM Atrial Rate : 119 BPM P-R Int : 152 ms QRS Dur : 080 ms QT Int : 330 ms P-R-T Axes : 082 076 082 degrees QTc Int : [address] depression, consider subendocardial injury Abnormal ECG When compared with ECG of 31-AUG-2020 01:17, ST more depressed Anterior leads Confirmed by John Reyes ([id number]) on 01/16/2021 6:34:44 AM Referred By: Confirmed By:John Reyes
--- NOTE | 2021-01-16 06:43 | Electrocardiogram Report ---
Test Reason : Blood Pressure : / mmHG Vent. Rate : 115 BPM Atrial Rate : 115 BPM P-R Int : 142 ms QRS Dur : 078 ms QT Int : 334 ms P-R-T Axes : 071 069 079 degrees QTc Int : 462 ms Sinus tachycardia Nonspecific ST abnormality Abnormal ECG When compared with ECG of 15-JAN-2021 09:48, ST less depressed in Anterior leads Confirmed by John Reyes ([id number]) on 01/16/2021 6:43:17 AM Referred By: REFERRED SELF Confirmed By:John Reyes
[2021-01-16] MEDS: FLUTICASONE/VILANTEROL 100/25MCG 14 PUFFS/INHALER INH SCH (08:32)
[2021-01-16] MEDS: ASTELIN - ORDER AWAITING ACTION SCH ×2 (08:32→16:15)
[2021-01-16] MEDS: ASPIRIN 81 MG ECTAB PO SCH (08:33)
[2021-01-16] MEDS: DULoxetine HCL 60 MG CAP PO SCH (08:33)
[2021-01-16] MEDS: GABAPENTIN 600 MG TAB PO SCH ×3 (08:34→19:33)
[2021-01-16] MEDS: predniSONE 10 MG TABLET PO SCH (08:36)
[2021-01-16] MEDS: CLOPIDOGREL BISULFATE 75 MG TAB PO SCH (08:36)
[2021-01-16] MEDS: ROFLUMILAST 500 MCG TAB PO SCH (08:36)
[2021-01-16] MEDS: CYANOCOBALAMIN 500 MCG TABLET (VITAMIN B-12) PO SCH (08:37)
[2021-01-16] MEDS: PANTOprazole 40 MG TAB PO SCH (08:37)
[2021-01-16] MEDS ORDERED: ROFLUMILAST 500 MCG TAB PO SCH (09:00)
[2021-01-16] MEDS ORDERED: AZITHROMYCIN 250 MG TAB PO SCH (09:00)
--- NOTE | 2021-01-16 09:41 | Hospitalist Progress Note ---
Date of Service January 16, 2021 Assessment & Plan (1) Presence of drug coated stent in left circumflex coronary artery: 60 yo M with hx CAD, 75 pack year smoking hx, nonsmall cell lung cancer s/p chemoradiation, emphysema admitted for NSTEMI found to require stent placement for coronary occlusion. 1. Left Circumflex CoronaryArtery occlusion - YARA placed 01/15 - ASA, plavix for 1 year - started on metoprolol tartrate 25 mg BID today, will transition to succinate as tolerate - 2.5 mg lisinopril initiated given lower blood pressures for cardiac remodeling benefit - PRN nitro for CP - reversible factors: dyslipidemia, DM2 2. DM2 - new diagnosis - A1c 7.3 - discussed diet control at length, including use of sugar substitutes, reduction of carbs in diet, benefit of cardiac and muscle building exercises - may benefit from metformin in outpatient setting however will focus on lifestyle modifications first 3. Dyslipidemia - started on atorvastatin 80 mg - chol 149, LDL 114 w/ goal <70 4. Severe COPD/Emphysema - cont daily fluticasone, incruse ellipta, ipratropium, roflumilast - goal spO2 >88% 5. GERD - pantoprazole switched to omeprazole to avoid interaction with plavix 6. Neuropathy - cont gabapentin 7. Anxiety/Depression - cont duloxetine DVT ppx: up ad cong, antiplatelets FEN/GI: heart healthy, low salt, omeprazole 40 mg Code Status: conditional (all tx except for cardiac arrest) Dispo: home at discharge (2) Dyslipidemia, goal LDL below 70: (3) NSTEMI (non-ST elevated myocardial infarction): (4) Non-small cell lung cancer: (5) History of lung cancer: (6) Pulmonary emphysema: (7) Neuropathy: (8) Anxiety: (9) Type 2 diabetes mellitus: Admission and Anticipated Discharge Date Admission Date: January 15, 2021 Supervising Physician Co-Signing Physician Notes I personally examined the patient and verified all hanna points of history and exam, discussed case, and agree with decision making with Dr Palacios. feeling ok. breathing ok. no further CP vitals noted nad heent nc at mmm breathing unlabored no accessory muscles good effort CAD/NSTEMI, DM2, hyperlipidemia -- post stenting. med management, lifestyle ch lisandra COPD - working towards transplant. now ex-smoker for quite a while otherwise as above Subjective Chest pain much improved after cardiac stent. No SOB, no calf pain. Discussed cardiac risk factors: 75pack-year smoking hx, A1c 7.3, modifications of diet and exercise. Currently eats ~ 1 homemade cheesecake per week for dessert. No sodas, but does enjoy iced tea with sugar, red meat. Not much in the way of carbs in diet, eats moderate variety of vegetables, mostly potatoes and asparagus. Discussed improving overall and cardiac health with bodyweight ex ercises at home and light walks for 1/2 hr per day at a speed he can tolerate. Review of Systems Respiratory: no cough, no dyspnea and no pain on inspiration Cardiovascular: no chest pain, no orthopnea, no edema and no calf pain Gastrointestinal: no abdominal pain Physical Exam Physical Exam: Constitutional: in no apparent distress, sitting comfortably in bed. Eyes: EOMI, pupils equal and reactive bilaterally, no scleral icterus Cardiac: RRR, no murmurs, gallops or rubs. Normal S1, S2 Pulm: CTA BL, no wheezes, rhonchi, crackles or rubs, moving air well throughout both lungs Abd: soft, nontender, nondistended, normal bowel sounds, no rebound or guarding Extremities: 2+ peripheral pulses, no edema Neuro: no focal deficits, moving all 4 limbs, A&Ox3 Results & Data Results & Data ([facility]) Vital Signs (Past 12 Hours) Vital Signs Temp Pulse Pulse Resp BP Pulse Ox 01/16/21 07:20 36.5 C 105 H 19 100/71 91 01/16/21 03:34 36.6 C 103 H 18 107/67 90 01/15/21 23:45 104 H 01/15/21 23:25 36.7 C 107 H 18 122/78 95 Laboratory Results WBC 9.29 K/uL (4.8-10.8) 01/16/21 04:15 RBC 5.09 M/uL (4.7-6.1) 01/16/21 04:15 Hgb 15.5 g/dL (14.0-18.0) 01/16/21 04:15 Hct 45.8 % (42-52) 01/16/21 04:15 MCV 90.0 fL (80-100) 01/16/21 04:15 MCH 30.5 pg (25-34) 01/16/21 04:15 MCHC 33.8 g/dL (32-36) 01/16/21 04:15 RDW Std Deviation 51.6 fL (36.4-46.3) H 01/16/21 04:15 RDW Coeff of Estela 15.5 % (11.5-14.5) H 01/16/21 04:15 Plt Count 248 K/uL (130-400) 01/16/21 04:15 MPV 9.4 fL (7.4-10.4) 01/16/21 04:15 Immature Gran % (Auto) 0.5 % 01/16/21 04:15 Neut % (Auto) 72.5 % 01/16/21 04:15 Lymph % (Auto) 17.1 % 01/16/21 04:15 Gentry % (Auto) 8.1 % 01/16/21 04:15 Eos % (Auto) 1.4 % 01/16/21 04:15 Baso % (Auto) 0.4 % 01/16/21 04:15 Neut # (Auto) 6.73 K/uL (1.4-6.5) H 01/16/21 04:15 Lymph # (Auto) 1.59 K/uL (1.2-3.4) 01/16/21 04:15 Gentry # (Auto) 0.75 K/uL (0.11-0.59) H 01/16/21 04:15 Eos # (Auto) 0.13 K/uL (0-0.5) 01/16/21 04:15 Baso # (Auto) 0.04 K/uL (0-0.2) 01/16/21 04:15 Immature Gran # (Auto) 0.05 K/uL (0.00-0.02) H 01/16/21 04:15 PT 9.2 Seconds (9.0-12.0) 01/15/21 09:57 INR 0.9 (0.9-1.1) 01/15/21 09:57 APTT 23.6 Seconds (21.0-31.0) 01/15/21 09:57 PTT Ratio 0.9 01/15/21 09:57 Activ Coag Time Kaolin 268 SECONDS (94-140) H 01/15/21 14:08 D-Dimer 470 ug/L FEU (0-500) 01/15/21 09:57 Sodium 141 mmol/L (136-145) 01/16/21 04:15 Potassium 3.7 mmol/L (3.5-5.1) 01/16/21 04:15 Chloride 108 mmol/L (98-107) H 01/16/21 04:15 Carbon Dioxide 29 mmol/L (21-32) 01/16/21 04:15 Anion Gap 4.0 (3-11) 01/16/21 04:15 BUN 9 mg/dl (7-18) 01/16/21 04:15 Creatinine 1.00 mg/dl (0.6-1.4) 01/16/21 04:15 Est Cr Clr Drug Dosing 88.8 ml/min 01/16/21 04:15 Est GFR ( Amer) 94.4 01/16/21 04:15 Est GFR (Non-Af Amer) 81.4 01/16/21 04:15 BUN/Creatinine Ratio 9.3 (10-20) L 01/16/21 04:15 Glucose 98 mg/dl (70-99) 01/16/21 04:15 Estimat Average Glucose 163 mg/dl 01/16/21 04:15 Hemoglobin A1c 7.3 % (4.5-5.6) H 01/16/21 04:15 Calcium 7.9 mg/dl (8.5-10.1) L 01/16/21 04:15 Total Bilirubin 0.6 mg/dl (0.2-1) 01/15/21 09:57 AST 15 U/L (15-37) 01/15/21 09:57 ALT 51 U/L (12-78) 01/15/21 09:57 Alkaline Phosphatase 105 U/L (45-117) 01/15/21 09:57 Troponin I 10.300 ng/ml (0-0.045) H* 01/16/21 04:15 Total Protein 7.0 gm/dl (6.4-8.2) 01/15/21 09:57 Albumin 3.4 gm/dl (3.4-5.0) 01/15/21 09:57 Globulin 3.6 gm/dl (2.5-4.0) 01/15/21 09:57 Albumin/Globulin Ratio 0.9 (0.9-2) 01/15/21 09:57 Triglycerides 144 mg/dl (0-150) 01/16/21 04:15 Cholesterol 178 mg/dl (0-200) 01/16/21 04:15 LDL Cholesterol, Calc 113 mg/dl 01/16/21 04:15 VLDL Cholesterol, Calc 29 mg/dl 01/16/21 04:15 HDL Cholesterol 36 mg/dl 01/16/21 04:15 Cholesterol/HDL Ratio 5 01/16/21 04:15 Lipase 174 U/L (73-393) 01/15/21 09:57 Nasal Screen MRSA (PCR) Negative (Negative) 01/15/21 19:50 COVID-19 Eval Order [facility]FluRsv at [facility] 01/15/21 11:45 SARS-CoV-2 (PCR) NEGATIVE (Negative) 01/15/21 11:45 Influenza Type A (PCR) Negative (Neg) 01/15/21 11:45 Influenza Type B (PCR) Negative (Neg) 01/15/21 11:45 RSV (RT-PCR) Negative (Neg) 01/15/21 11:45 Impressions Chest CTA 01/15/21 10:49 CT angio chest PE protocol CT DOSE: 370.76 mGy.cm HISTORY: 60 years-old Male with PE. Acute chest pain with history of lung cancer TECHNIQUE: Multiple CTA images of the chest were obtained after the intravenous administration of 120 ml Optiray 320. Coronal and sagittal MIPS were obtained from the axial data set and were submitted for review. All measurements were obtained according to NASCET criteria. A dose lowering technique was utilized adhering to the principles of ALARA. COMPARISON: Chest radiograph of same day, chest CT 01/03/2021 FINDINGS: CTA: The heart is normal in size without pericardial effusion. Mild coronary artery calcifications. There is no thoracic aortic aneurysm or dissection. Patency of the imaged great vessels. Left subclavian Etmmna-p-Axil catheter distal tip terminates within the SVC. The pulmonary artery is opacified to the level of the subsegmental branches and demonstrates no filling defects to suggest thromboembolic disease. CT CHEST: Unremarkable thyroid. Calcified pretracheal lymph nodes. No pathologically enlarged lymph nodes of the chest identified. No pneumothorax or pleural effusion. Severe emphysema. Bronchial wall thickening suggestive of bronchitis. 8 x 6 mm nodular opacity of the left upper lobe on image 177 is unchanged. 8 mm nodular opacity of the right upper lobe on image 208 is unchanged from comparison. 9 x 5 mm nodular focus of the right upper lobe on image 190 is also unchanged. No new or enlarging pulmonary nodules identified. Central airways are patent. No pneumoperitoneum. Hepatic steatosis. No acute process of the imaged upper abdomen. Unremarkable soft tissues. No acute fracture. No suspicious lytic or blastic osseous lesions. IMPRESSION: 1. No pulmonary emboli. 2. Severe emphysema with bronchitis. 3. Numerous irregular bilateral solid pulmonary nodules appear unchanged from comparison. 4. Hepatic steatosis. 5. Additional findings as above. ACT 112: Negative or not required by law. The above report was generated using voice recognition software. It may contain grammatical, syntax or spelling errors. Electronically signed by: Nick Biggs M.D. 01/15/2021 11:29 AM Resident Activity Tracking Resident Involvement: Resident Care Provided Care Provided: Adult Hospital Medicine
[2021-01-16] MEDS: METOPROLOL TARTRATE 25 MG TAB PO SCH ×2 (10:11→19:34)
[2021-01-16] MEDS: ATORVASTATIN 40 MG TAB PO SCH (10:11)
--- NOTE | 2021-01-16 11:57 | Cardiology Progress Note ---
Date of Service January 16, 2021 Assessment & Plan (1) NSTEMI (non-ST elevated myocardial infarction): Cardiac catheterization performed emergently 01/15/2021 without complication. Proximal left circumflex occlusion treated with drug-eluting stent. Patient's chest discomfort has resolved. Review 2D transthoracic echocardiogram. Continue dual antiplatelet therapy for a minimum of 1 year post intervention/myocardial infarction. Recommend continued hospitalization for additional 24-48 hours for titration of medications. (2) Presence of drug coated stent in left circumflex coronary artery: Continue dual antiplatelet therapy for 1 year. (3) Tachycardia: Add metoprolol tartrate 25 mg twice daily. No dysrhythmias recorded on telemetry. The rhythm is sinus. (4) Dyslipidemia, goal LDL below 70: High intensity statin indicated. Atorvastatin 80 mg daily ordered. (5) Tobacco use disorder: Cardiovascular risks of tobacco abuse reviewed. Smoking cessation strongly advised. Admission and Anticipated Discharge Date Admission Date: January 15, 2021 Subjective Patient seen and examined the bedside. Feeling well today. No recurrent chest discomfort overnight. Telemetry demonstrates sinus tachycardia with a heart rate of 100 bpm. No lightheadedness, dizziness, or palpitations. No signs/symptoms of GI/ blood loss. Minimal right anterior wrist soreness reported. No hematoma. Mild ecchymosis. Review of Systems Review of Systems: All systems reviewed & are unremarkable except as noted in Subjective Physical Exam Constitutional: well nourished; no acute distress and not ill appearing Respiratory: no respiratory distress and no labored breathing Auscultation: + diminished lung sounds; no crackles, no rales, no rhonchi and no wheezes Cardiovascular: RRR, no murmur, no edema Rate/Rhythm: regular rate, regular rhythm and + tachycardic Heart Sounds: normal S1 and normal S2; no murmur Vessels: no JVD Extremities: no edema Gastrointestinal (Abdomen): Inspection/Auscultation: normal bowel sounds Percussion/Palpation: abdomen soft; abdomen nontender, no guarding and abdomen not rigid Neurologic: moves all extremities; no focal motor deficits Motor/Sensory: no tremor Psychiatric: Orientation: alert, oriented x 3 and cooperative Results & Data ([facility]) Vital Signs (Past 12 Hours) Vital Signs Temp Pulse Pulse Resp BP Pulse Ox 01/16/21 11:36 36.6 C 95 H 17 106/70 94 01/16/21 08:00 104 H 04/14/21 07:20 36.5 C 105 H 19 100/71 91 01/16/21 03:34 36.6 C 103 H 18 107/67 90
[2021-01-16] MEDS ORDERED: Nursing to Pharmacy Communication SCH (12:15)
[2021-01-16] MEDS: NITROGLYCERIN/D5W 100MCG/ML 250 ML IV SCH (13:43)
--- NOTE | 2021-01-16 19:16 | Billing Data ---
Date of Service January 16, 2021 Coding Level of Care Code 44554 Subseq Hosp Care Lvl 3
[2021-01-16] MEDS: UMECLIDINIUM BROMIDE 62.5MCG/BLISTER 7 PUFFS/INHALER INH SCH (19:33)
[2021-01-17] MEDS: ASTELIN - ORDER AWAITING ACTION SCH ×2 (00:46→08:09)
--- NOTE | 2021-01-17 05:59 | Electrocardiogram Report ---
Test Reason : Blood Pressure : / mmHG Vent. Rate : 102 BPM Atrial Rate : 102 BPM P-R Int : 170 ms QRS Dur : 082 ms QT Int : 350 ms P-R-T Axes : 076 077 081 degrees QTc Int : 456 ms Sinus tachycardia Nonspecific ST abnormality Abnormal ECG When compared with ECG of 15-JAN-2021 11:52, No significant change was found Confirmed by John Reyes ([id number]) on 01/17/2021 5:59:00 AM Referred By: REFERRED SELF Confirmed By:John Reyes
[2021-01-17 07:12] LABS: BUN Creatinine Ratio 14.5 (10-20); Calcium 9.3 mg/dl (8.5-10.1); Creatinine Clr Calc Pharmacy 73.4 ml/min; Est GFR (Non-African American) 64.7; Potassium 3.5 mmol/L (3.5-5.1)
[2021-01-17] MEDS: FLUTICASONE/VILANTEROL 100/25MCG 14 PUFFS/INHALER INH SCH (08:10)
[2021-01-17] MEDS: ATORVASTATIN 40 MG TAB PO SCH (08:11)
[2021-01-17] MEDS: ROFLUMILAST 500 MCG TAB PO SCH (08:12)
[2021-01-17] MEDS: ASPIRIN 81 MG ECTAB PO SCH (08:13)
[2021-01-17] MEDS: DULoxetine HCL 60 MG CAP PO SCH (08:13)
[2021-01-17] MEDS: GABAPENTIN 600 MG TAB PO SCH (08:14)
[2021-01-17] MEDS: CYANOCOBALAMIN 500 MCG TABLET (VITAMIN B-12) PO SCH (08:14)
[2021-01-17] MEDS: CLOPIDOGREL BISULFATE 75 MG TAB PO SCH (08:14)
[2021-01-17] MEDS: predniSONE 10 MG TABLET PO SCH (08:15)
[2021-01-17] MEDS: PANTOprazole 40 MG TAB PO SCH (08:16)
[2021-01-17] MEDS ORDERED: lisinopril 2.5 MG TAB PO SCH (09:00)
[2021-01-17] MEDS: METOPROLOL TARTRATE 25 MG TAB PO SCH (09:36)
--- NOTE | 2021-01-17 10:01 | Hospitalist Progress Note ---
Date of Service January 17, 2021 Assessment & Plan (1) Presence of drug coated stent in left circumflex coronary artery: 60 yo M with hx CAD, 75 pack year smoking hx, nonsmall cell lung cancer s/p chemoradiation, emphysema admitted for NSTEMI found to require stent placement for coronary occlusion. 1. Left Circumflex CoronaryArtery occlusion - YARA placed 01/15 - ASA, plavix for 1 year - started on metoprolol tartrate 25 mg BID today, will transition to succinate as tolerate - 2.5 mg lisinopril initiated given lower blood pressures for cardiac remodeling benefit - PRN nitro for CP - reversible factors: dyslipidemia, DM2 2. DM2 - new diagnosis - A1c 7.3 - discussed diet control at length, including use of sugar substitutes, reduction of carbs in diet, benefit of cardiac and muscle building exercises - may benefit from metformin in outpatient setting however will focus on lifestyle modifications first 3. Dyslipidemia - started on atorvastatin 80 mg - chol 149, LDL 114 w/ goal <70 4. Severe COPD/Emphysema - cont daily fluticasone, incruse ellipta, ipratropium, roflumilast - goal spO2 >88% 5. GERD - pantoprazole switched to omeprazole to avoid interaction with plavix 6. Neuropathy - cont gabapentin 7. Anxiety/Depression - cont duloxetine DVT ppx: up ad cong, antiplatelets FEN/GI: heart healthy, low salt, omeprazole 40 mg Code Status: conditional (all tx except for cardiac arrest) Dispo: home at discharge (2) Dyslipidemia, goal LDL below 70: (3) NSTEMI (non-ST elevated myocardial infarction): (4) Non-small cell lung cancer: (5) History of lung cancer: (6) Pulmonary emphysema: (7) Neuropathy: (8) Anxiety: (9) Type 2 diabetes mellitus: Admission and Anticipated Discharge Date Admission Date: January 15, 2021 Results & Data Results & Data ([facility]) Vital Signs (Past 12 Hours) Vital Signs Temp Pulse Pulse Pulse Resp BP BP 01/17/21 09:19 94 H 92/61 L 01/17/21 07:38 91 H 97/68 L 01/17/21 07:21 36.7 C 90 20 92/65 L 01/17/21 03:28 36.7 C 91 H 19 85/54 L 01/16/21 23:32 95 H 01/16/21 23:01 36.7 C 92 H 19 106/70 Pulse Ox 01/17/21 09:19 01/17/21 07:38 01/17/21 07:21 94 01/17/21 03:28 91 01/16/21 23:32 01/16/21 23:01 93
--- NOTE | 2021-01-17 10:21 | Discharge Summary ---
Date of Service January 17, 2021 Admission HPI Per Admitting Provider Isak Browne is a 60-year-old male who presents to the ER with chest pain. He reports this started at 7:30am this morning when he woke up. Severity 9/10. Heaviness. Radiating to left shoulder and jaw. No relief with x1 nitroglycerin he took this morning. Non-pleuritic. No significant relief after aspirin, morphine and Dilaudid given in ER. He reports having a similar pain yesterday morning although less severe which was relieved with x2 nitroglycerin. He recently underwent cardiac evaluation by [facility] with Lexiscan stress testing in October which was negative for inducible ischemia for non-specific intermittent chest pains. Notably he has had prior hospitalizations for severe esophagitis requiring hospitalizations. Thrush diagnosed 02/2018. He denies any current dysphagia or odynophagia. He has a significant history of non-small cell lung cancer with locally advanced disease diagnosed in 2011 s/p chemoradiation. No recurrence on multiple unchanged CTs since 2016. He does have a notable history of a small pulmonary embolism diagnosed in 2015 which was treated with 6 months of Lovenox and he is currently off anticoagulation. In the ER EKG showed anterior ST depressions. Initial troponin 0.8. He was referred to medicine for admission and ongoing management of NSTEMI. Admission Exam Per Admitting Provider Constitutional: well developed, well nourished and + acute distress (Ongoing chest pain) Eyes: + anicteric sclerae; normal pupil size ENMT: external ear and nose normal, oropharynx normal Neck: trachea midline, no thyromegaly Respiratory: normal respiratory effort, lungs clear to auscultation Cardiovascular: Rate/Rhythm: regular rhythm and + tachycardic Heart Sounds: no murmur Extremities: normal capillary refill; no calf tenderness and no pedal edema Gastrointestinal (Abdomen): normal bowel sounds, soft, nontender, no hepatosplenomegaly Musculoskeletal: no cyanosis or clubbing, extremities motor strength 5/5 Skin: no rashes, warm and dry Neurologic: moves all extremities and awake; not confused Psychiatric: A+Ox3, euthymic affect Principal Diagnosis NSTEMI, Discharge Exam Constitutional: well nourished;well appearing, eager to go home Respiratory: no respiratory distress and no labored breathing Auscultation: + diminished lung sounds; no crackles, no rales, no rhonchi and no wheezes Cardiovascular: RRR, no murmur, no edema, normal S1 and normal S2, Extremities: no edema Gastrointestinal (Abdomen): Inspection/Auscultation: normal bowel sounds Percussion/Palpation: abdomen soft; abdomen nontender, no guarding and abdomen not rigid Neurologic: moves all extremities; no focal motor deficits Motor/Sensory: no tremor Psychiatric: Orientation: alert, oriented x 3 and cooperative Discharge Data Allergies Allergy/AdvReac Type Severity Reaction Status Date / Time No Known Allergies Allergy Verified 01/15/21 10:38 Consultations 01/15/21 11:31 ED Decision to Admit Stat 01/15/21 12:06 Consult Cardiology Stat 01/15/21 12:44 Consult Cardiac Catheterization Stat 01/15/21 14:43 Consult Cardiac Rehabilitation Routine Procedures Performed Operation Date: 01/15/21 13:00 Actual Procedures p Cath, Left with Cors and Vent - DO rama Shetty Cineradiography w/Routine Exam - DO rama Shetyt Drug Eluting Stent SGl Vessel - Agus Yousif MD s POBA SGL Vessel - Agus Yousif MD Ordered Studies 01/15/21 10:49 CT angio chest PE protocol Stat 01/15/21 12:48 CL Cath Imgs for PACS use only Stat Hospital Course (1) Presence of drug coated stent in left circumflex coronary artery: 60 yo M with hx CAD, 75 pack year smoking hx, nonsmall cell lung cancer s/p chemoradiation, emphysema admitted for NSTEMI found to require stent placement for coronary occlusion. 1. Left Circumflex Coronary Artery occlusion - YARA placed 01/15 - ASA, plavix for 1 year - Discharged with metoprolol, atorvastatin - tobacco free 2. DM2 - new diagnosis - A1c 7.3 - discussed diet control at length, including use of sugar substitutes, reduction of carbs in diet, benefit of cardiac and muscle building exercises [eats 1 cheesecake/week, makes cakes and drinks only sweetened ice tea] - may benefit from metformin in outpatient setting however will focus on lifestyle modifications first 3. Dyslipidemia - started on atorvastatin 80 mg - chol 149, LDL 114 w/ goal <70 4. GERD - pantoprazole switched to omeprazole to avoid interaction with plavix New Medications Metoprolol Succinate 50 mg daily Aspirin 81 mg daily Plavix 75 mg daily Omeprazole 40 mg daily Atorvastatin 80 mg daily Nitroglycerin 0.4 mg SL as needed for chest pain All other chronic conditions managed per home regimens (2) Dyslipidemia, goal LDL below 70: (3) NSTEMI (non-ST elevated myocardial infarction): (4) Non-small cell lung cancer: (5) History of lung cancer: (6) Pulmonary emphysema: (7) Neuropathy: (8) Anxiety: (9) Type 2 diabetes mellitus: Total Time Total Time Spent Total Time Spent (In Minutes): Less than 30 Discharge Plan Discharge Items Patient Disposition: Home - Self-Care Reason For Visit: NSTEMI Discharge Diagnosis: NSTEMI Condition on Discharge: Good Activity: Per Instructions section Lifting: None Non-emergency contact: Primary Care Provider and Pressroom Supervisor Call non-emergency contact if: you have any medication questions and your symptoms worsen Follow-up/Referrals: Isak Zuniga III, MD [Primary Care Provider] - 01/21/21 3:00 pm (Please follow up with Latoya Champion PA-C (Dr. Zuniga) on Thursday01/21/21 at 3:00 pm. Please arrive to the office at 2:45 pm for your appointment. If you are unable to keep this appointment, please call the office to reschedule at [phone].) Diet: Carb Consistent or DM2, Heart Healthy and Low Sodium (2gm) Addtl Attending Provider Instructions: You were admitted to the hospital for ongoing chest pain that was found to be due to a heart attack and complete blockage of one of your heart arteries. You were taken to the cardiac grass farm laborer where they were able to see and open the blocked artery with a drug eluting stent. This stent will help continue blood flow to your heart. It is crucial that you take your new medications as they will help keep your stent open and stop it from getting clogged. We also talked about your blood sugar being higher than normal, and having an A1c of 7.3 which diagnoses you with Type Two Diabetes. We discussed cutting out desserts like cheesecake and cake to help cut down on the sugar intake. Also watching your carbohydrate intake will help keep your sugars down. Talk to your PCP about getting a oil mixer to help with diet changes and management. Reduction of red meat (pork, beef) and increasing lean meat (fish, chicken, turkey) will also help your heart stay healthier. New Medications: - Plavix 75 mg once a daily (keeps stent open) - Aspirin 81 mg once a day (keeps stent open) - Metoprolol Succinate 50 mg once a day (helps control blood pressure and heart function) - Atorvastatin 80 mg, 2 pills once a day (keep cholesterol down, lower plaque in arteries) - Nitroglycerin 0.4 mg (dissolvable under tongue as needed for chest pain) Medication Changes: The pantoprazole 40 mg tabs you were taking for reflux was changed to Omeprazole 40 mg which is a medicine in the same class because Pantoprazole interacts with your Plavix and can't be taken together. You will need to follow up with your veneer jointer operator after your hospitalization to make sure you are recovering appropriately and tolerating the medications. If you feel lightheaded and dizzy, sit down to regain your bearings and let your PCP or veneer jointer operator know that you're having these symptoms. Participating in the [facility] program will also be beneficial to helping your cardiac strength and health. Pending Studies at Discharge: No Stand-Alone Forms: My [facility], Smoking Cessation Medications and DC Order Prescriptions: New atorvastatin 40 mg Tablet 80 mg PO QAM 30 Days Qty: 60 RF: 0 nitroglycerin [Nitrostat] 0.4 mg Tablet, Sublingual 0.4 mg sublingual PRN PRN (Reason: chest pain) 10 Days Qty: 10 RF: 0 omeprazole 40 mg capsule,delayed release(DR/EC) 40 mg PO DAILY 28 Days Qty: 28 RF: 0 metoprolol succinate 50 mg tablet extended release 24 hr 50 mg PO DAILY Qty: 30 RF: 0 Continued ondansetron HCl [Zofran] 4 mg tablet 4 mg PO DAILY PRN (Reason: nausea and vomiting) Qty: 30 RF: 2 gabapentin 600 mg tablet 600 mg PO TID 30 Days Qty: 90 RF: 5 prednisone 10 mg tablet 10 mg PO DAILY Qty: 90 RF: 3 albuterol sulfate 2.5 mg /3 mL (0.083 %) solution for nebulization 2.5 mg inhalation Q4H PRN (Reason: COPD) Qty: 180 RF: 5 ipratropium bromide 0.02 % solution 2.5 ml inhalation Q4H PRN (Reason: COPD) Qty: 180 RF: 5 Incruse Ellipta 62.5 mcg/actuation blister with device 1 inh INH QPM Qty: 3 RF: 1 Breo Ellipta 100-25 mcg/dose blister with device 1 inh inhalation QAM Qty: 60 RF: 2 azithromycin 250 mg tablet 250 mg PO 3XWK Qty: 15 RF: 5 albuterol sulfate 90 mcg/actuation HFA aerosol inhaler 2 puff inhalation Q6H PRN (Reason: Shortness Of Breath Or Wheezing) Qty: 18 RF: 3 Daliresp 500 mcg tablet 500 mcg PO DAILY Qty: 60 RF: 2 Daliresp 250 mcg tablet 250 mcg PO DAILY 14 Days Qty: 14 RF: 0 duloxetine 60 mg capsule,delayed release(DR/EC) 60 mg PO DAILY Qty: 30 RF: 2 cyanocobalamin (vitamin B-12) [Vitamin B-12] 2,000 mcg Tablet Extended Release 2,000 mcg PO DAILY RF: 0 azelastine 137 mcg (0.1 %) aerosol,spray 2 spray INTNAS BID PRN (Reason: ALLERGIC RHINITIS) RF: 0 Discontinued pantoprazole 40 mg tablet,delayed release (DR/EC) 40 mg PO QAM Qty: 90 RF: 3 Discharge Orders: Discharge Order (Routine); Ordered 01/17/21 Ordered By: Irene Franklin/Other Patient Handouts: High Blood Sugar (Hyperglycemia), Hypoglycemia (Low Blood Sugar), Managing Type 2 Diabetes, Exercise to Manage Your Blood Sugar, 5 Steps for Eating Healthier, Understanding Type 2 Diabetes, Heart Attack: Leaving the Hospital, Heart Attack: Back at Home, A1C Admission Data Admit Date/Time: 01/15/21 13:41 Attending Provider: Victorino Mejia Admit Provider: Nate Mi Primary Care Provider: Isak Zuniga III Other Providers: Rodo Haider ; Nate Mi ; Irene Palacios Other Interventions: Discharge Summary Assessment (RN) Last Done: 01/17/21 12:28 Supervising Physician Co-Signing Physician Notes I personally examined the patient and verified all hanna points of history and exam, discussed case, and agree with decision making with Dr Palacios. Feeling good, up to going home. Reiterated importance of med adherence and lifestyle change. He expressed good understanding. vitals noted nad heent nc at mmm breathing unlabored no accessory muscles good effort CAD/NSTEMI, DM2, hyperlipidemia -- post stenting. med management, lifestyle change, close outpatient follow-up COPD - working towards transplant. now ex-smoker for quite a while otherwise as above, stable for home Resident Activity Tracking Resident Involvement: Resident Care Provided Care Provided: Adult Hospital Medicine
--- NOTE | 2021-01-17 11:16 | Cardiology Progress Note ---
Date of Service January 17, 2021 Assessment & Plan (1) NSTEMI (non-ST elevated myocardial infarction): Status post cardiac catheterization 01/15/2021 with PCI of mid circumflex into OM 2 with single drug-eluting stent (3.0 x 18 mm Xience; postdilated with 3.5 NC). Angioplasty to jailed distal circumflex through stent struts with 2.0 balloon. 2D echocardiogram demonstrates preserved LV systolic function with lateral, and posterior lateral wall motion abnormality. Transition metoprolol tartrate to Toprol-XL 50 mg daily. Consider addition of THOMAS inhibitor in outpatient setting pending reevaluation of resting blood pressure which remains borderline hypotensive. Repeat resting 2D transthoracic echocardiogram in 3 months. Discussed importance of continuing dual antiplatelet therapy for a minimum of 1 year post myocardial infarction/PCI. Indication for high intensity statin therapy also reviewed. Smoking cessation advised. Outpatient cardiology follow-up in 1 week. (2) Presence of drug coated stent in left circumflex coronary artery: Continue dual antiplatelet therapy for 1 year. (3) Tachycardia: Transition metoprolol tartrate to Toprol-XL 50 mg daily. No dysrhythmias recorded on telemetry. (4) Dyslipidemia, goal LDL below 70: Continue atorvastatin 80 mg daily. (5) Tobacco use disorder: Cardiovascular risks of tobacco abuse reviewed. Smoking cessation strongly advised. Admission and Anticipated Discharge Date Admission Date: January 15, 2021 Subjective Patient seen and examined the bedside. Feeling well from a cardiovascular perspective. Resting heart rate improved on telemetry. Currently sinus rhythm at 90 bpm. No lightheadedness, dizziness, syncope, or near syncope. No sustained dysrhythmias. Denies orthopnea, PND, or edema. Tolerating medications. No signs/symptoms of GI/ blood loss. Borderline asymptomatic resting hypotension persists. Review of Systems Review of Systems: All systems reviewed & are unremarkable except as noted in HPI & below Physical Exam Constitutional: well nourished; no acute distress and not ill appearing Respiratory: no respiratory distress and no labored breathing Auscultation: + diminished lung sounds; no crackles, no rales, no rhonchi and no wheezes Cardiovascular: RRR, no murmur, no edema Rate/Rhythm: regular rate, regular rhythm and + tachycardic Heart Sounds: normal S1 and normal S2; no murmur Vessels: no JVD Extremities: no edema Gastrointestinal (Abdomen): Inspection/Auscultation: normal bowel sounds Percussion/Palpation: abdomen soft; abdomen nontender, no guarding and abdomen not rigid Neurologic: moves all extremities; no focal motor deficits Motor/Sensory: no tremor Psychiatric: Orientation: alert, oriented x 3 and cooperative Results & Data ([facility]) Vital Signs (Past 12 Hours) Vital Signs Temp Pulse Pulse Pulse Resp BP BP 01/17/21 09:19 94 H 92/61 L 01/17/21 08:00 91 H 01/17/21 07:38 91 H 97/68 L 01/17/21 07:21 36.7 C 90 20 92/65 L 01/17/21 03:28 36.7 C 91 H 19 85/54 L 01/16/21 23:32 95 H Pulse Ox 01/17/21 09:19 01/17/21 08:00 01/17/21 07:38 01/17/21 07:21 94 01/17/21 03:28 91 01/16/21 23:32
[2021-01-17] MEDS ORDERED: METOPROLOL SUCC 50MG EXT REL TAB PO ONE (12:00)
--- NOTE | 2021-01-17 18:45 | Billing Data ---
Date of Service January 17, 2021 Coding Level of Care Code D/C Day Management <30 mins
[2021-01-23] MEDS ORDERED: ROFLUMILAST 500 MCG TAB PO SCH (09:00)
== END 2021-01-17 12:55 | disposition home or self-care (01) | DRG 247 ==
LOC: ED 09:32 → 2S 13:00 → SUATTDRO 13:41 → 2S 01-16 18:07

== ENCOUNTER 2021-01-20 12:04 | Inpatient (IN) ==
--- NOTE | 2021-01-20 12:25 | Emergency Department Note ---
Impression & Plan SOB (shortness of breath), Elevated troponin I level ED Provider Note NAME: ISAK PERRY AGE: 60 SEX: M : 1960 ARRIVES VIA: Walk-In INFORMANT: Patient, ED PROVIDER(S): Bon Jensen DO CHIEF COMPLAINT: Shortness of breath HPI: The patient is a 60-year-old male who presented to the emergency department for an evaluation of shortness of breath. The patient was seen in our facility this week with similar complaints. At that time he was admitted for chest pain but also was diagnosed with an NSTEMI. The patient went to the [facility] and did have a stent placed. He states he was discharged home and started on some new medications. Patient states that he has been compliant with his new outpatient medication regimen. The patient started having difficulty breathing last evening. He states he has "phlegm" that he feels in the back of his throat. He denies having any fever. The cough is not productive. His shortness of breath is worsened with exertion but not with lying flat. He denies having any lower extremity swelling. He did note ecchymosis to both knees and is unsure why because he had no trauma to his knees. The patient denies having any abdominal pain or chest pain. The patient states his symptoms are moderate at this time. They are relieved with rest and oxygen. The patient presented directly to the emergency department for these symptoms. He states that they have been constant ever since last evening. He does a history of lung cancer as well as COPD. ROS: See above HPI for pertinent positives & negatives. A total of 10 systems reviewed and were otherwise negative. PAST MEDICAL HISTORY: See Below PAST SURGICAL HISTORY: See Below FAMILY HISTORY: See Below SOCIAL HISTORY: See Below HOME MEDICATIONS: See Below ALLERGIES: See Below VITALS: See Below PHYSICAL EXAMINATION: GENERAL: The patient is awake and alert. He is somewhat anxious appearing. EYES: The conjunctivae are clear. The pupils are round and reactive. EARS, NOSE, MOUTH AND THROAT: The nose is without any evidence of any deformity. Mucous membranes are moist. There is no swelling in the oropharynx. NECK: The neck is nontender and supple. RESPIRATORY: Tachypnea was noted on evaluation. There were no rales rhonchi or wheezing noted. CARDIOVASCULAR: Regular rate and rhythm noted there no murmurs rubs or gallops normal S1 normal S2. GASTROINTESTINAL: The abdomen is soft. Abdomen is nontender. MUSCULOSKELETAL/EXTREMITIES: There is no evidence of gross deformity full range of motion is noted in the hips and shoulders. SKIN: There is no obvious evidence of any rash. There are no petechiae, pallor or cyanosis noted. NEUROLOGIC: Patient is awake alert and oriented x3. MEDICAL DECISION MAKING: The patient is a 60-year-old male who presented to the emergency department for an evaluation of difficulty breathing. The patient is status post cardiac catheterization and stenting for an NSTEMI. He was recently discharged in our facility on of last week. The patient presents with very significant shortness of breath. He does have a history of COPD as well as lung cancer. Radiographic studies do not appear to be consistent with pneumonia but the patient does have an elevated white blood cell count. The patient's troponin is elevated but it is decreased compared to his discharge troponin. CPK was not elevated. The patient's EKG shows improvement of the previously noted ST segment abnormalities. I do not feel that this is an anginal event but given the patient's recent admission I discussed this case with the on-call [facility] hospitalist. They have agreed to evaluate the patient in the emergency department for further management and disposition. The patient was treated with aspirin DuoNeb and IV fluids in the emergency department. Symptoms remained unchanged. Triage Nursing notes reviewed. Prior medical records reviewed Vital Signs: reviewed and remarkable for no significant abnormalities Differential diagnosis: Reactive airway disease, pneumonia, pneumothorax, COPD, CHF, infections, cardiac ischemia, pulmonary embolism, musculoskeletal, gastrointestinal, as well as other pathologies. ER treatment provided: See below Diagnostics interpreted by me: ECG: EKG was obtained in the emergency department. My interpretation is normal sinus rhythm at 92 bpm. There was no ectopy. High lateral T wave abnormalities were noted. This was compared to a tracing from January 162020. The previously noted ST segment depressions in the lateral leads have resolved and appear to be normalized on today's tracing. Cardiac Monitoring: An order was placed for continuous cardiac monitoring. The monitor shows a rate of 89 bpm with sinus rhythm. Laboratory studies: As stated above and show below. Imaging studies: See below Consultation(s): I discussed this case with Dr. Ludwig who is on-call for the [facility]. Past Med/Surg History Medical History Anxiety Asthma Chest pain Constipation Depression GERD (gastroesophageal reflux disease) H/O pneumothorax History of lung cancer DX 2011-LEFT LOBE/NO SURGERY/RADIATION/CHEMO History of pulmonary embolus (PE) 2017-NO ISSUES SINCE Hypertension NO MEDS Neuropathy Pulmonary emphysema Severe chronic obstructive pulmonary disease SOB (shortness of breath) on exertion Stomach ulcer HX -UNDER CONTROL Tobacco use disorder Surgical History History of colonoscopy History of esophagogastroduodenoscopy (EGD) History of lung surgery STENT TO [id number]? History of vascular access device PORT PLACEMENT-UPPER LEFT IN PLACE S/P laparoscopic cholecystectomy Family History Mother Coronary heart disease Father , age 90 COPD (chronic obstructive pulmonary disease) Diabetes Lung cancer Aunt Cancer Uncle Diabetes Brother Hypertension Other No family history of bleeding disorder Social History Smoking Status: Former smoker packs per day: 1; Years Smoked: 37; Cigarettes Per Day: does smoke occ cigar when golfing; Second Hand Exposure: Yes; Hx Alcohol Use: No Hx Substance Use: No Preferred Language: Occitan Communication Ability: Effective Visual Impairment: No Limitations Hearing Ability: Normal Low Vision Therapist Required: No Beliefs That Will Affect Care: None marital status: Single marital status details: but has 1 daughter Current Living Situation: Alone Current Living Situation Comment: brother stays with pt periodically current occupational status: employed and disabled 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 Feels Safe at Home: Yes Assistive Devices: None Allergies Allergies Allergy/AdvReac Type Severity Reaction Status Date / Time No Known Allergies Allergy Verified 01/15/21 10:38 Home Meds Home Medications Medication Instructions Recorded Confirmed cyanocobalamin (vitamin B-12) 2,000 mcg PO DAILY 05/14/20 01/18/21 [Vitamin B-12] azelastine 2 spray INTNAS BID PRN 07/27/20 01/18/21 Previous Rx's Medication Instructions Recorded ondansetron HCl 4 mg tablet 4 mg PO DAILY PRN #30 tab 12/14/19 gabapentin 600 mg tablet 600 mg PO TID 30 Days #90 tab 09/17/20 prednisone 10 mg tablet 10 mg PO DAILY #90 tab 11/12/20 duloxetine 60 mg capsule,delayed 60 mg PO DAILY #30 cap 12/21/20 release albuterol sulfate 90 mcg/actuation 2 puff INHALATION Q6H PRN #18 g 01/08/21 aerosol inhaler azithromycin 250 mg tablet 250 mg PO 3XWK #15 tab 01/08/21 fluticasone furoate 100 1 inh INHALATION QAM #60 ea 01/08/21 mcg-vilanterol 25 mcg/dose inhalation powder roflumilast 250 mcg tablet 250 mcg PO DAILY 14 Days #14 tab 01/08/21 roflumilast 500 mcg tablet 500 mcg PO DAILY #60 tab 01/08/21 umeclidinium 62.5 mcg/actuation 1 inh INH QPM #3 inhaler 01/08/21 blister powder for inhalation albuterol sulfate 2.5 mg INHALATION Q4H PRN #180 ml 01/09/21 ipratropium bromide 0.02 % 2.5 ml INHALATION Q4H PRN #180 ml 01/09/21 solution for inhalation atorvastatin 80 mg PO QAM 30 Days #60 tab 01/16/21 nitroglycerin [Nitrostat] 0.4 mg SUBLINGUAL PRN PRN 10 Days 01/16/21 #10 tab omeprazole 40 mg PO DAILY 28 Days #28 cap 01/16/21 metoprolol succinate 50 mg PO DAILY #30 tab 01/17/21 Results & Data (ED) Vital Signs Vital Signs - 24 hr 01/20/21 12:04 01/20/21 12:05 01/20/21 12:07 Temperature 36 C L Temperature Source Temporal Artery Scan Pulse Rate 97 H Pulse Rate [Apical] 73 Respiratory Rate 18 18 Respiratory Effort / Characteristics Non-Labored Respiratory Depth Normal Blood Pressure 108/81 Blood Pressure [Left Arm] 107/61 Blood Pressure Mean 90 Blood Pressure Mean [Left Arm] 76 Pulse Oximetry 99 98 98 Oxygen Delivery Method Nasal Cannula Room Air Room Air Oxygen Flow Rate 2 0 Sepsis Recent Fever Within 48 Hours No Sepsis New/Unexplained Change in Mental Status No Sepsis Action Taken by Nursing No Action Required Oxygen Flow Rate - Titration 2 Pulse Oximetry Post Tiitration 99 01/20/21 12:14 01/20/21 13:41 Temperature Temperature Source Pulse Rate Pulse Rate [Apical] 87 Respiratory Rate 20 Respiratory Effort / Characteristics Non-Labored Spontaneous Short of Breath Respiratory Depth Blood Pressure Blood Pressure [Left Arm] Blood Pressure Mean Blood Pressure Mean [Left Arm] Pulse Oximetry 98 99 Oxygen Delivery Method Room Air Room Air Oxygen Flow Rate Sepsis Recent Fever Within 48 Hours Sepsis New/Unexplained Change in Mental Status Sepsis Action Taken by Nursing Oxygen Flow Rate - Titration Pulse Oximetry Post Tiitration Home Medications Current Medication List: was personally reviewed by me Laboratory Data Attestation: I reviewed the patient's lab results. Result diagrams: 01/20/21 12:18 01/20/21 12:18 Lab Results 01/20/21 01/20/21 01/20/21 Range/Units 12:18 12:18 12:18 WBC 12.03 H (4.8-10.8) K/uL RBC 5.85 (4.7-6.1) M/uL Hgb 18.1 H (14.0-18.0) g/dL Hct 52.5 H (42-52) % MCV 89.7 (80-100) fL MCH 30.9 (25-34) pg MCHC 34.5 (32-36) g/dL RDW Std Deviation 50.8 H (36.4-46.3) fL RDW Coeff of Estela 15.3 H (11.5-14.5) % Plt Count 338 (130-400) K/uL MPV 9.6 (7.4-10.4) fL Immature Gran % (Auto) 0.5 % Neut % (Auto) 86.5 % Lymph % (Auto) 6.8 % [place] % (Auto) 5.8 % Eos % (Auto) 0.2 % Baso % (Auto) 0.2 % Neut # (Auto) 10.40 H (1.4-6.5) K/uL Lymph # (Auto) 0.82 L (1.2-3.4) K/uL [place] # (Auto) 0.70 H (0.11-0.59) K/uL Eos # (Auto) 0.03 (0-0.5) K/uL Baso # (Auto) 0.02 (0-0.2) K/uL Immature Gran # (Auto) 0.06 H (0.00-0.02) K/uL PT 10.4 (9.0-12.0) Seconds INR 1.0 (0.9-1.1) APTT 25.8 (21.0-31.0) Seconds PTT Ratio 1.0 Sodium 139 (136-145) mmol/L Potassium 4.0 (3.5-5.1) mmol/L Chloride 106 (98-107) mmol/L Carbon Dioxide 25 (21-32) mmol/L Anion Gap 8.0 (3-11) BUN 18 (7-18) mg/dl Creatinine 1.23 (0.6-1.4) mg/dl Est Cr Clr Drug Dosing Not Reportable Est GFR ( Amer) 73.5 Est GFR (Non-Af Amer) 63.4 BUN/Creatinine Ratio 15.0 (10-20) Glucose 160 H (70-99) mg/dl Calcium 9.4 (8.5-10.1) mg/dl Magnesium 2.3 (1.8-2.4) mg/dl Total Bilirubin 1.5 H (0.2-1) mg/dl AST 18 (15-37) U/L ALT 57 (12-78) U/L Alkaline Phosphatase 119 H (45-117) U/L Total Creatine Kinase 86 (39-308) U/L CK-MB (CK-2) 2.1 (0.5-3.6) ng/ml CK/CKMB % Calc 2.4 (0-3.0) Troponin I 0.285 H* (0-0.045) ng/ml NT-Pro-B Natriuret Pep 483 (0-900) pg/ml Total Protein 7.8 (6.4-8.2) gm/dl Albumin 3.6 (3.4-5.0) gm/dl Globulin 4.2 H (2.5-4.0) gm/dl Albumin/Globulin Ratio 0.9 (0.9-2) COVID-19 Eval Order 01/20/21 Range/Units 13:55 WBC (4.8-10.8) K/uL RBC (4.7-6.1) M/uL Hgb (14.0-18.0) g/dL Hct (42-52) % MCV (80-100) fL MCH (25-34) pg MCHC (32-36) g/dL RDW Std Deviation (36.4-46.3) fL RDW Coeff of Estela (11.5-14.5) % Plt Count (130-400) K/uL MPV (7.4-10.4) fL Immature Gran % (Auto) % Neut % (Auto) % Lymph % (Auto) % [place] % (Auto) % Eos % (Auto) % Baso % (Auto) % Neut # (Auto) (1.4-6.5) K/uL Lymph # (Auto) (1.2-3.4) K/uL [place] # (Auto) (0.11-0.59) K/uL Eos # (Auto) (0-0.5) K/uL Baso # (Auto) (0-0.2) K/uL Immature Gran # (Auto) (0.00-0.02) K/uL PT (9.0-12.0) Seconds INR (0.9-1.1) APTT (21.0-31.0) Seconds PTT Ratio Sodium (136-145) mmol/L Potassium (3.5-5.1) mmol/L Chloride (98-107) mmol/L Carbon Dioxide (21-32) mmol/L Anion Gap (3-11) BUN (7-18) mg/dl Creatinine (0.6-1.4) mg/dl Est Cr Clr Drug Dosing Est GFR ( Amer) Est GFR (Non-Af Amer) BUN/Creatinine Ratio (10-20) Glucose (70-99) mg/dl Calcium (8.5-10.1) mg/dl Magnesium (1.8-2.4) mg/dl Total Bilirubin (0.2-1) mg/dl AST (15-37) U/L ALT (12-78) U/L Alkaline Phosphatase (45-117) U/L Total Creatine Kinase (39-308) U/L CK-MB (CK-2) (0.5-3.6) ng/ml CK/CKMB % Calc (0-3.0) Troponin I (0-0.045) ng/ml NT-Pro-B Natriuret Pep (0-900) pg/ml Total Protein (6.4-8.2) gm/dl Albumin (3.4-5.0) gm/dl Globulin (2.5-4.0) gm/dl Albumin/Globulin Ratio (0.9-2) COVID-19 Eval Order [facility] at [facility] Administered Medications Discontinued Medications Albuterol (Albut/Ipratrop 3mg/0.5mg Neb 3 Ml Vial) 3 ml NEB NOW STA Stop: 01/20/21 13:08 Last Admin: 01/20/21 13:39 Dose: 3 ml Documented by: [id number] Aspirin (Aspirin Chew 324 Mg) 324 mg PO NOW STA Stop: 01/20/21 13:08 Last Admin: 01/20/21 13:30 Dose: 324 mg Documented by: [id number] Sodium Chloride (Nss 1000ml) 500 mls @ 999 mls/hr IV .Q31M ONE Stop: 01/20/21 13:37 Last Infusion: 01/20/21 14:05 Dose: 0 mls/hr Documented by: [id number] Admin: 01/20/21 13:30 Dose: 999 mls/hr Documented by: [id number] Imaging Data Radiologist's Impression: Chest X-Ray 01/20/21 12:14 XR chest 1V portable CLINICAL HISTORY: Dyspnea COMPARISON STUDY: 01/15/2021 FINDINGS: There is pulmonary emphysema. There is a left subclavian A-Port catheter. There is no failure. There is no focal pulmonary consolidation. There are no pleural effusions.[ IMPRESSION: Severe pulmonary emphysema. No acute findings. ACT 112: Negative or not required by law. Electronically signed by: Jacoby Walden M.D. 01/20/2021 12:36 PM Discharge Plan Visit Data Chief Complaint: Shortness of Breath/Dyspnea Stated Complaint: SENT LAST THIS, CANT BREATH, SWEATING, COPD ED Provider: Bon Jensen Discharge Problem: SOB (shortness of breath), Elevated troponin I level Forms Stand Alone Forms: [employer] Prescriptions Prescriptions: No Action ondansetron HCl [Zofran] 4 mg tablet 4 mg PO DAILY PRN (Reason: nausea and vomiting) Qty: 30 RF: 2 gabapentin 600 mg tablet 600 mg PO TID 30 Days Qty: 90 RF: 5 prednisone 10 mg tablet 10 mg PO DAILY Qty: 90 RF: 3 albuterol sulfate 2.5 mg /3 mL (0.083 %) solution for nebulization 2.5 mg inhalation Q4H PRN (Reason: COPD) Qty: 180 RF: 5 ipratropium bromide 0.02 % solution 2.5 ml inhalation Q4H PRN (Reason: COPD) Qty: 180 RF: 5 Incruse Ellipta 62.5 mcg/actuation blister with device 1 inh INH QPM Qty: 3 RF: 1 Breo Ellipta 100-25 mcg/dose blister with device 1 inh inhalation QAM Qty: 60 RF: 2 azithromycin 250 mg tablet 250 mg PO 3XWK Qty: 15 RF: 5 albuterol sulfate 90 mcg/actuation HFA aerosol inhaler 2 puff inhalation Q6H PRN (Reason: Shortness Of Breath Or Wheezing) Qty: 18 RF: 3 Daliresp 500 mcg tablet 500 mcg PO DAILY Qty: 60 RF: 2 Daliresp 250 mcg tablet 250 mcg PO DAILY 14 Days Qty: 14 RF: 0 duloxetine 60 mg capsule,delayed release(DR/EC) 60 mg PO DAILY Qty: 30 RF: 2 cyanocobalamin (vitamin B-12) [Vitamin B-12] 2,000 mcg Tablet Extended Release 2,000 mcg PO DAILY RF: 0 azelastine 137 mcg (0.1 %) aerosol,spray 2 spray INTNAS BID PRN (Reason: ALLERGIC RHINITIS) RF: 0 atorvastatin 40 mg Tablet 80 mg PO QAM 30 Days Qty: 60 RF: 0 nitroglycerin [Nitrostat] 0.4 mg Tablet, Sublingual 0.4 mg sublingual PRN PRN (Reason: chest pain) 10 Days Qty: 10 RF: 0 omeprazole 40 mg capsule,delayed release(DR/EC) 40 mg PO DAILY 28 Days Qty: 28 RF: 0 metoprolol succinate 50 mg tablet extended release 24 hr 50 mg PO DAILY Qty: 30 RF: 0 Referrals Referrals: Isak Zuniga III, MD [Primary Care Provider] -
[2021-01-20 12:29] LABS: Basophils # (auto) 0.02 K/uL (0-0.2); Basophils % (auto) 0.2 %; Eosinophils # (auto) 0.03 K/uL (0-0.5); Eosinophils % (auto) 0.2 %; Hematocrit (blood only) 52.5 % (42-52); Hemoglobin 18.1 g/dL (14.0-18.0); Immature Granulocytes # (auto) 0.06 K/uL (0.00-0.02); Immature Granulocytes % (auto) 0.5 %; Lymphocytes # (auto) 0.82 K/uL (1.2-3.4); Lymphocytes % (auto) 6.8 %; Mean Corpuscular Hemoglobin 30.9 pg (25-34); Mean Corpuscular Hgb Conc 34.5 g/dL (32-36); Mean Corpuscular Volume 89.7 fL (80-100); Mean Platelet Volume 9.6 fL (7.4-10.4); Monocytes % (auto) 5.8 %; Neutrophils % (auto) 86.5 %; Platelet Count 338 K/uL (130-400); RDW Coefficient of Variation 15.3 % (11.5-14.5); RDW Standard Deviation 50.8 fL (36.4-46.3); Red Blood Count 5.85 M/uL (4.7-6.1); White Blood Count 12.03 K/uL (4.8-10.8)
--- NOTE | 2021-01-20 12:37 | XRay Report ---
XR chest 1V portable CLINICAL HISTORY: Dyspnea COMPARISON STUDY: 01/15/2021 FINDINGS: There is pulmonary emphysema. There is a left subclavian A-Port catheter. There is no failu re. There is no focal pulmonary consolidation. There are no pleural effusions.[ IMPRESSION: Severe pulmonary emphysema. No acute findings. ACT 112: Negative or not required by law. Electronically signed by: Jacoby Walden M.D. 01/20/2021 12:36 PM
[2021-01-20 12:40] LABS: Partial Thromboplastin Time 25.8 Seconds (21.0-31.0); Prothrombin Time 10.4 Seconds (9.0-12.0)
[2021-01-20 12:47] LABS: Alanine Aminotransferase 57 U/L (12-78); Albumin Level 3.6 gm/dl (3.4-5.0); Aspartate Aminotransferase 18 U/L (15-37); Blood Urea Nitrogen 18 mg/dl (7-18); Calcium 9.4 mg/dl (8.5-10.1); Carbon Dioxide 25 mmol/L (21-32); Chloride 106 mmol/L (98-107); Est GFR (African American) 73.5; Est GFR (Non-African American) 63.4; Glucose 160 mg/dl (70-99); Magnesium 2.3 mg/dl (1.8-2.4); Sodium 139 mmol/L (136-145)
[2021-01-20 12:59] LABS: Albumin Globulin Ratio 0.9 (0.9-2); Alkaline Phosphatase 119 U/L (45-117); Bilirubin,Total 1.5 mg/dl (0.2-1); Creatine Kinase 86 U/L (39-308); Creatine Kinase MB 2.1 ng/ml (0.5-3.6); Globulin 4.2 gm/dl (2.5-4.0); NT Pro B Type Natriuretic Pept 483 pg/ml (0-900); Total Protein 7.8 gm/dl (6.4-8.2); Troponin I 0.285 ng/ml (0-0.045)
[2021-01-20] MEDS ORDERED: ASPIRIN CHEW 324 MG PO STA (13:07)
[2021-01-20] MEDS ORDERED: ALBUT/IPRATROP 3MG/0.5MG NEB 3 ML VIAL NEB STA (13:07)
[2021-01-20] MEDS ORDERED: SODIUM CHLORIDE 0.9% 1000ML 500 ML IV ONE (13:07)
--- NOTE | 2021-01-20 13:32 | History & Physical Report ---
Date of Service January 20, 2021 Assessment & Plan (1) Severe chronic obstructive pulmonary disease: Patient severe shortness of breath and sputum production likely may be bronchitis with a acute on chronic respiratory failure with hypoxemia. Pt typically is not on home oxygen. In the past pt failed attempts to taper chronic dialy steroids, patient has a history of previous gastritis. this pt will be cautiously placed on steroids (escalate to 40 mg daily after 1 dose of intravenous Solu-Medrol) continue his PPI scheduling his bronchodilators. Patient typically takes suppressive azithromycin he will be placed on doxycycline twice daily and the azithromycin will be held the outside chance that this is cardiogenic we will trend his enzymes given his recent stenting procedure. His current troponin is reduced from previous. Pt is significantly short of breath with minimal exertion, becoming hypoxic also, if not improved by am will have pulmonary med see (2) Presence of drug coated stent in left circumflex coronary artery: Patient continues on aspirin Plavix metoprolol atorvastatin. As mentioned above serial enzymes will be trended a sed rate will also be obtained in case this is a pericardial inflammation (3) Dyslipidemia, goal LDL below 70: Atorvastatin 80 will be utilized (4) Type 2 diabetes mellitus: Patient's hemoglobin A1c is 7.3 steroids likely make his glucose higher glucose on admission was 160 will have on a carbohydrate conservative diet sliding scale insulin. (5) Depression: We will continue duloxetine (6) Diarrhea: this is a new issue for pt, will rule out covid and C diff check stool cultures (7) DVT prophylaxis: lovenox for dvt prevention History of Present Illness Primary Care Provider: Isak Zuniga MD 60-year-old male who presented to the emergency department for an evaluation of shortness of breath worse than his baseline. At his baseline he has golds class D The patient was seen in our facility 01/15- with similar complaints at that time he was diagnosed with an NSTEMI. The patient went to the [facility] and did have a drug eluting stent placed in OM2 mid circumflex. He was diagnosed with diabetes also during that stay The patient started having difficulty breathing 01/19 in the evening. He states he has "phlegm" that he feels in the back of his throat. He denies having any fever. The cough is not productive. His shortness of breath is worsened with exertion but not with lying flat. He denies having any lower extremity swelling. He did note ecchymosis to both knees and is unsure why because he had no trauma to his knees. The patient denies having any abdominal pain or chest pain. The patient states his symptoms are moderate at this time. They are relieved with rest and oxygen. The patient presented directly to the emergency department for these symptoms. He states that they have been constant ever since last evening. He does a history of lung cancer as well as COPD. Allergies Allergy/AdvReac Type Severity Reaction Status Date / Time No Known Allergies Allergy Verified 01/20/21 14:28 Home Medications Medication Instructions Recorded Confirmed Type ondansetron HCl 4 mg tablet 4 mg PO DAILY PRN #30 tab 12/14/19 01/20/21 Rx cyanocobalamin (vitamin B-12) 2,000 mcg PO DAILY 05/14/20 01/20/21 History [Vitamin B-12] azelastine 2 spray INTNAS BID PRN 07/27/20 01/20/21 History gabapentin 600 mg tablet 600 mg PO TID 30 Days #90 tab 09/17/20 01/20/21 Rx prednisone 10 mg tablet 10 mg PO DAILY #90 tab 11/12/20 01/20/21 Rx albuterol sulfate 90 mcg/actuation 2 puff INHALATION Q6H PRN #18 g 01/08/21 01/20/21 Rx aerosol inhaler azithromycin 250 mg tablet 250 mg PO 3XWK #15 tab 01/08/21 01/20/21 Rx fluticasone furoate 100 1 inh INHALATION QAM #60 ea 01/08/21 01/20/21 Rx mcg-vilanterol 25 mcg/dose inhalation powder roflumilast 250 mcg tablet 250 mcg PO DAILY 14 Days #14 tab 01/08/21 01/20/21 Rx roflumilast 500 mcg tablet 500 mcg PO DAILY #60 tab 01/08/21 01/20/21 Rx umeclidinium 62.5 mcg/actuation 1 inh INH QPM #3 inhaler 01/08/21 01/20/21 Rx blister powder for inhalation albuterol sulfate 2.5 mg INHALATION Q4H PRN #180 ml 01/09/21 01/20/21 Rx ipratropium bromide 0.02 % 2.5 ml INHALATION Q4H PRN #180 ml 01/09/21 01/20/21 Rx solution for inhalation nitroglycerin [Nitrostat] 0.4 mg SUBLINGUAL PRN PRN 10 Days 01/16/21 01/20/21 Rx #10 tab omeprazole 40 mg PO DAILY 28 Days #28 cap 01/16/21 01/20/21 Rx metoprolol succinate 50 mg PO DAILY #30 tab 01/17/21 01/20/21 Rx atorvastatin 80 mg PO QAM 01/20/21 01/20/21 History duloxetine 60 mg capsule,delayed 60 mg PO DAILY 90 Days #90 cap 01/21/21 Rx release Past Med/Surg History Medical History Anxiety Asthma Chest pain Constipation Depression GERD (gastroesophageal reflux disease) H/O pneumothorax History of lung cancer DX 2011-LEFT LOBE/NO SURGERY/RADIATION/CHEMO History of pulmonary embolus (PE) 2017-NO ISSUES SINCE Hypertension NO MEDS Neuropathy Pulmonary emphysema Severe chronic obstructive pulmonary disease SOB (shortness of breath) on exertion Stomach ulcer HX -UNDER CONTROL Tobacco use disorder Surgical History History of colonoscopy History of esophagogastroduodenoscopy (EGD) History of lung surgery STENT TO [id number]? History of vascular access device PORT PLACEMENT-UPPER LEFT IN PLACE S/P laparoscopic cholecystectomy Family History Mother Coronary heart disease Father , age 90 COPD (chronic obstructive pulmonary disease) Diabetes Lung cancer Aunt Cancer Uncle Diabetes Brother Hypertension Other No family history of bleeding disorder Social History Smoking Status: Former smoker packs per day: 1; Years Smoked: 37; Cigarettes Per Day: does smoke occ cigar when golfing; Second Hand Exposure: Yes; Do You Dip or Chew Tobacco: No; Tobacco Cessation Education Requested by Patient: No Hx Alcohol Use: No Hx Substance Use: No Preferred Language: Japanese Communication Ability: Effective Visual Impairment: No Limitations Hearing Ability: Normal Optometric Assistant Required: No Beliefs That Will Affect Care: None marital status: Single marital status details: but has 1 daughter Current Living Situation: Alone Current Living Situation Comment: brother stays w/pt periodically current occupational status: employed and disabled 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 How many Children do You have: 1 Other Information That Helps Us Care for You: No Feels Safe at Home: Yes Safety Concerns: Feels Safe At This Time Assistive Devices: None Review of Systems Review of Systems: Mild distress and fatigue, some fever no headache, blurry or double vision no speech or swallowing issues, but does have sore throat no chest pain, pressure or palpitations Increased shortness of breath and sputum production over his baseline pt is with moderate shortness of breath no abdominal pain, nausea or vomiting, is having some diarrhea urinary hesitancy and reduced strength of stream no focal joint pain or swelling no back pain, CVA tenderness or radicular pain some bruising on knees no focal signs of weakness or numbness or altered sensation no complaints of anxiety or depression.. Physical Exam Physical Exam: The patient appeared thin with pulmonary cachexia,purse lipped breathing Vital signs as documented. Head exam is normocephalic atraumatic no scleral icterus Neck is without JVD, thyromegaly, or carotid bruits. Lungs are with "dry" crackles and prolonged respiratory phase Cardiac exam, Rhythm is regular.. No murmurs, rubs or gallops. Abdominal exam reveals normal bowel sounds, soft non tender, no masses Extremities are nonedematous and both pedal pulses are present Neurologic exam is alert and oriented, no focal loss of strength or sensation Skin is with bruising to both knees Psychologically is without concerns for anxiety or depression Results & Data Results & Data ([facility]) Vital Signs (Past 12 Hours) Vital Signs Temp Pulse Pulse Resp BP BP Pulse Ox 01/20/21 12:14 98 01/20/21 12:07 98 01/20/21 12:05 96.8 F L 97 H 18 108/81 98 01/20/21 12:04 73 18 107/61 99 Chest x-ray shows severe COPD but no pneumonia EKG is improved from previous PG Care Time/CCT Total # of Minutes Spent Total Time Spent with Patient: Total time spent is greater than 50% in coordination of care (as documented) at patient's floor/unit and/or counseling patient: Coding Level of Care Code 33789 Initial Inpt Care Lvl 3 Diagnoses Severe chronic obstructive pulmonary disease J44.9 Presence of drug coated stent in left circumflex coronary artery Z95.5 Dyslipidemia, goal LDL below 70 E78.5 Type 2 diabetes mellitus E11.9 Depression F32.9 Diarrhea R19.7 DVT prophylaxis Z29.9
[2021-01-20 14:41] LABS: Influenza A virus by PCR Negative (Neg); Influenza B virus by PCR Negative (Neg); RSV by PCR Negative (Neg); SARS CoV2 RNA(COVID-19) InHosp NEGATIVE (Negative)
[2021-01-20] MEDS ORDERED: ACETAMINOPHEN 325 MG TAB PO PRN (16:26)
[2021-01-20] MEDS ORDERED: ALUMINUM/MAGNESIUM SUSP 30 ML UDC PO PRN (16:26)
[2021-01-20] MEDS ORDERED: methylPREDNISolone 125 MG/2 ML VIAL IV STA (16:26)
[2021-01-20] MEDS ORDERED: POLYETHYLENE (MIRALAX) 17 GM PACK PO PRN (16:26)
[2021-01-20] MEDS ORDERED: CARBOHYDRATES FOR HYPOGLYCEMIA PO PRN (16:26)
[2021-01-20] MEDS ORDERED: GLUCAGON FOR INJ 1 MG VIAL SQ PRN (16:26)
[2021-01-20] MEDS ORDERED: NITROGLYCERIN SL 0.4 MG/TAB TAB SL PRN (16:26)
[2021-01-20] MEDS ORDERED: MoRPHine SULFATE 2 MG/ML CARP IV PRN (16:26)
[2021-01-20] MEDS ORDERED: DEXTROSE 50% 50 ML SYRINGE IV PRN (16:26)
[2021-01-20] MEDS ORDERED: GLUCOSE 40% GEL 15 GM TUBE PO PRN (16:26)
[2021-01-20] MEDS ORDERED: GLUCOSE 10 TABS/TUBE PO PRN (16:26)
[2021-01-20] MEDS ORDERED: ONDANSETRON INJ 2 MG/ML 2 ML VIAL IV PRN (16:26)
[2021-01-20] MEDS ORDERED: PATIENT'S HEIGHT AND/OR WEIGHT NEEDED SCH (16:45)
[2021-01-20] MEDS ORDERED: ONDANSETRON 4 MG OD TAB PO PRN (17:00)
[2021-01-20] MEDS ORDERED: methylPREDNISolone 125 MG in SYRINGE 0 ML IV ONE (17:15)
[2021-01-20] MEDS: GABAPENTIN 600 MG TAB PO SCH ×2 (17:25→20:52)
[2021-01-20] MEDS: ALBUT/IPRATROP 3MG/0.5MG NEB 3 ML VIAL NEB SCH ×3 (17:50→22:53)
[2021-01-20] MEDS: ENOXAPARIN INJ 40 MG/0.4 ML SYR SQ SCH (18:15)
[2021-01-20] MEDS: INSULIN ASPART 100 UNITS/ML 3 ML PEN SC SCH ×2 (18:16→20:53)
--- NOTE | 2021-01-20 19:54 | Electrocardiogram Report ---
Test Reason : Blood Pressure : / mmHG Vent. Rate : 092 BPM Atrial Rate : 092 BPM P-R Int : 162 ms QRS Dur : 080 ms QT Int : 360 ms P-R-T Axes : 084 077 084 degrees QTc Int : 445 ms Poor data quality, interpretation may be adversely affected Normal sinus rhythm When compared with ECG of 16-JAN-2021 03:35, No significant change was found Confirmed by Chapin Mohamud ([id number]) on 01/20/2021 7:54:14 PM Referred By: REFERRED SELF Confirmed By:Fernie Mohamud
[2021-01-20 20:15] LABS: Appearance Urine Clear (Clear); Bacteria Urine Automated Negative (Negative); Bilirubin Urine Negative (Negative); Blood Urine Trace (Negative); Color Urine Dark Yellow; Glucose Urine UA Negative (Negative); Ketones Urine 2+ (Negative); Leukocyte Esterase Urine Negative (Negative); Nitrite Urine Negative (Negative); Protein Urine Negative (Negative); Specific Gravity Urine 1.031 (1.000-1.030); Urobilinogen Urine Negative (Negative)
[2021-01-20 20:30] LABS: Sperm Urine Present (None Prsent)
[2021-01-20] MEDS: DOXYCYCLINE HYCLATE 100 MG CAP PO SCH (20:53)
[2021-01-21] MEDS: ALBUT/IPRATROP 3MG/0.5MG NEB 3 ML VIAL NEB SCH ×6 (03:28→22:59)
[2021-01-21] MEDS: HEPARIN 100 UNIT/ML 5ML FLUSH FLUSH PRN (08:05)
[2021-01-21] MEDS: DOXYCYCLINE HYCLATE 100 MG CAP PO SCH ×2 (08:17→20:08)
[2021-01-21] MEDS: DULoxetine HCL 60 MG CAP PO SCH (08:17)
[2021-01-21] MEDS: PANTOprazole 40 MG TAB PO SCH (08:17)
[2021-01-21] MEDS: GABAPENTIN 600 MG TAB PO SCH ×3 (08:17→20:06)
[2021-01-21] MEDS: ROFLUMILAST 500 MCG TAB PO SCH (08:18)
[2021-01-21] MEDS: CYANOCOBALAMIN 500 MCG TABLET (VITAMIN B-12) PO SCH (08:19)
[2021-01-21] MEDS: ATORVASTATIN 40 MG TAB PO SCH (08:19)
[2021-01-21] MEDS: INSULIN ASPART 100 UNITS/ML 3 ML PEN SC SCH ×4 (08:22→20:07)
[2021-01-21 08:41] LABS: BUN Creatinine Ratio 16.4 (10-20); Calcium 8.7 mg/dl (8.5-10.1); Creatinine Clr Calc Pharmacy 79.1 ml/min; Est GFR (African American) 85.1; Est GFR (Non-African American) 73.4; Potassium 3.8 mmol/L (3.5-5.1)
[2021-01-21] MEDS ORDERED: predniSONE 20 MG TAB PO SCH (09:00)
[2021-01-21] MEDS ORDERED: ROFLUMILAST 500 MCG TAB PO SCH (09:00)
[2021-01-21] MEDS ORDERED: METOPROLOL SUCC 50MG EXT REL TAB PO SCH (09:00)
--- NOTE | 2021-01-21 17:36 | Electrocardiogram Report ---
Test Reason : Blood Pressure : / mmHG Vent. Rate : 099 BPM Atrial Rate : 099 BPM P-R Int : 162 ms QRS Dur : 082 ms QT Int : 356 ms P-R-T Axes : 080 075 083 degrees QTc Int : 456 ms Poor data quality, interpretation may be adversely affected Normal sinus rhythm Normal ECG When compared with ECG of 20-JAN-2021 12:09, No significant change was found Confirmed by Chapin Mohamud ([id number]) on 01/21/2021 5:35:43 PM Referred By: REFERRED SELF Confirmed By:Fernie Mohamud
[2021-01-21] MEDS ORDERED: CLOPIDOGREL BISULFATE 75 MG TAB PO ONE (18:14)
[2021-01-21] MEDS ORDERED: ASPIRIN 81 MG CHEW PO ONE (18:17)
--- NOTE | 2021-01-21 18:23 | Hospitalist Progress Note ---
Date of Service January 21, 2021 Assessment & Plan (1) Severe chronic obstructive pulmonary disease: Patient severe shortness of breath and sputum production likely may be bronchitis with a acute on chronic respiratory failure with hypoxemia. Pt typically is not on home oxygen. Patient is some improvement remains fairly dyspneic with need of oxygen. We will escalate steroid therapy on 01/21 In the past pt failed attempts to taper chronic daily steroids, patient has a history of previous gastritis. this pt will be cautiously placed on steroids Solu-Medrol 40 IV twice daily) continue his PPI scheduling his bronchodilators. Patient typically takes suppressive azithromycin he will be placed on doxycycline twice daily and the azithromycin will be held the outside chance that this is cardiogenic we will trend his enzymes given his recent stenting procedure. His current troponin trending is reduced from previous NSTEMI admission Pt is significantly short of breath with minimal exertion, becoming hypoxic also, patient has seen some improvement we will continue to hold off on pulmo nary medicine consultation. (2) Presence of drug coated stent in left circumflex coronary artery: Patient continues on aspirin Plavix metoprolol atorvastatin. Serial troponins were unrevealing and the patient has a low ESR (3) Dyslipidemia, goal LDL below 70: Atorvastatin 80 will be utilized (4) Type 2 diabetes mellitus: Patient's hemoglobin A1c is 7.3 steroids likely make his glucose higher glucose on admission was 160 will have on a carbohydrate conservative diet sliding scale insulin. (5) Depression: We will continue duloxetine (6) Diarrhea: this is a new issue for pt, will rule out covid and C diff check stool cultures (7) DVT prophylaxis: lovenox for dvt prevention Admission and Anticipated Discharge Date Admission Date: January 20, 2021 Subjective Patient states his breathing is about 50% better. The patient has significant dyspnea on exertion. The patient does not have any chest pain or pressure. The patient has a nonproductive cough he feels his mucus is too thick and difficult to bring up. Interesting to wonder if his exacerbation of his breathing issues correspond with initiation of metoprolol succinate therapy. Metoprolol however is cardioselective and seems to be the more safe choice of b blockage in post nstemi pt Review of Systems Review of Systems: Moderate respiratory distress and fatigue no headache, blurry or double vision no speech or swallowing issues no chest pain, pressure or palpitations Significant shortness of breath even with talking nonproductive coughing no abdominal pain, nausea or vomiting, diarrhea or constipation no dysuria, hematuria or frequency no focal joint pain or swelling no back pain, CVA tenderness or radicular pain no bruising, bleeding or rashes no focal signs of weakness or numbness or altered sensation no complaints of anxiety or depression.. Physical Exam Physical Exam: The patient appeared chronically ill and in moderate respiratory distress Vital signs as documented. Head exam is normocephalic atraumatic no scleral icterus Neck is without JVD, thyromegaly, or carotid bruits. Lungs are poor air movement prolonged expiratory phase no focal wheezes Cardiac exam, Rhythm is regular.. No murmurs, rubs or gallops. Abdominal exam reveals normal bowel sounds, soft non tender, no masses Extremities are nonedematous and both pedal pulses are present Neurologic exam is alert and oriented, no focal loss of strength or sensation Skin is without bruises or rashes Psychologically is without concerns for anxiety or depression Results & Data Results & Data ([place]) Vital Signs (Past 12 Hours) Vital Signs Temp Pulse Pulse Resp BP Pulse Ox 01/21/21 15:42 100 H 16 91 01/21/21 15:22 98.4 F 100 H 98 H 20 93/57 L 95 01/21/21 11:36 97.9 F 100 H 20 107/73 98 01/21/21 11:20 103 H 16 93 01/21/21 08:03 94 H 16 96 01/21/21 07:45 97.7 F 100 H 20 118/77 95 01/21/21 07:07 94 H PG Care Time/CCT Total # of Minutes Spent Total Time Spent with Patient: Total time spent is greater than 50% in coordination of care (as documented) at patient's floor/unit and/or counseling patient: Coding Level of Care Code 16375 Subseq Hosp Care Lvl 3 Diagnoses Severe chronic obstructive pulmonary disease J44.9 Presence of drug coated stent in left circumflex coronary artery Z95.5 Dyslipidemia, goal LDL below 70 E78.5 Type 2 diabetes mellitus E11.9 Depression F32.9 Diarrhea R19.7 DVT prophylaxis Z29.9
[2021-01-21] MEDS: ENOXAPARIN INJ 40 MG/0.4 ML SYR SQ SCH (18:31)
[2021-01-21] MEDS: guaiFENesin 600 MG TABCR PO SCH (20:06)
[2021-01-21] MEDS: methylPREDNISolone 40 MG in SYRINGE 0 ML IV SCH (20:07)
[2021-01-22] MEDS: ALBUT/IPRATROP 3MG/0.5MG NEB 3 ML VIAL NEB SCH ×6 (03:18→23:16)
[2021-01-22 07:20] LABS: Hematocrit (blood only) 46.1 % (42-52); Hemoglobin 15.5 g/dL (14.0-18.0); Mean Corpuscular Hemoglobin 30.2 pg (25-34); Mean Corpuscular Hgb Conc 33.6 g/dL (32-36); Mean Corpuscular Volume 89.9 fL (80-100); Mean Platelet Volume 9.3 fL (7.4-10.4); Platelet Count 296 K/uL (130-400); RDW Coefficient of Variation 15.5 % (11.5-14.5); RDW Standard Deviation 50.8 fL (36.4-46.3); Red Blood Count 5.13 M/uL (4.7-6.1); White Blood Count 12.85 K/uL (4.8-10.8)
[2021-01-22] MEDS: INSULIN ASPART 100 UNITS/ML 3 ML PEN SC SCH ×4 (07:45→21:22)
[2021-01-22 08:00] LABS: BUN Creatinine Ratio 18.6 (10-20); Calcium 9.5 mg/dl (8.5-10.1); Creatinine Clr Calc Pharmacy 87.1 ml/min; Est GFR (African American) 95.5; Est GFR (Non-African American) 82.4; Potassium 3.7 mmol/L (3.5-5.1)
--- NOTE | 2021-01-22 08:10 | Hospitalist Progress Note ---
Date of Service January 22, 2021 Assessment & Plan (1) Severe chronic obstructive pulmonary disease: Patient severe shortness of breath and sputum production likely may be bronchitis with a acute on chronic respiratory failure with hypoxemia. Pt typically is not on home oxygen. Patient is some improvement remains fairly dyspneic with need of oxygen. We will escalate steroid therapy on 01/21 In the past pt failed attempts to taper chronic daily steroids, patient has a history of previous gastritis. this pt will be cautiously placed on steroids Solu-Medrol 40 IV daily) continue his PPI scheduling his bronchodilators. Patient typically takes suppressive azithromycin he will be placed on doxycycline twice daily and the azithromycin will be held the outside chance that this is cardiogenic we will trend his enzymes given his recent stenting procedure. His current troponin trending is reduced from previous NSTEMI admission *Chronic obstructive pulmonary disease with acute bronchitis Pt is significantly short of breath with minimal exertion, becoming hypoxic also, patient has seen some improvement we will continue to hold off on pulmonary medicine consultation. (2) Presence of drug coated stent in left circumflex coronary artery: Patient continues on aspirin Plavix metoprolol atorvastatin. Serial troponins were unrevealing and the patient has a low ESR (3) Dyslipidemia, goal LDL below 70: Atorvastatin 80 will be utilized (4) Type 2 diabetes mellitus: Patient's hemoglobin A1c is 7.3 steroids likely make his glucose higher glucose on admission was 160 will have on a carbohydrate conservative diet sliding scale insulin. (5) Depression: We will continue duloxetine (6) Diarrhea: this is a new issue for pt, will rule out covid and C diff check stool cultures (7) DVT prophylaxis: lovenox for dvt prevention Admission and Anticipated Discharge Date Admission Date: January 20, 2021 Subjective Patient states his breathing is about 50% better but not improved. The patient remains with significant dyspnea on exertion. The patient does not have any chest pain or pressure. The patient has a nonproductive cough he feels his mucus is too thick and difficult to bring up despite starting mucinex and using flutter valve. Review of Systems Review of Systems: Moderate respiratory distress and fatigue no headache, blurry or double vision no speech or swallowing issues no chest pain, pressure or palpitations Significant shortness of breath even with talking nonproductive coughing no abdominal pain, nausea or vomiting, diarrhea or constipation no dysuria, hematuria or frequency no focal joint pain or swelling no back pain, CVA tenderness or radicular pain no bruising, bleeding or rashes no focal signs of weakness or numbness or altered sensation no complaints of anxiety or depression.. Physical Exam Physical Exam: The patient appeared chronically ill and in moderate respiratory distress Vital signs as documented. Head exam is normocephalic atraumatic no scleral icterus Neck is without JVD, thyromegaly, or carotid bruits. Lungs are poor air movement prolonged expiratory phase no focal wheezes Cardiac exam, Rhythm is regular.. No murmurs, rubs or gallops. Abdominal exam reveals normal bowel sounds, soft non tender, no masses Extremities are nonedematous and both pedal pulses are present Neurologic exam is alert and oriented, no focal loss of strength or sensation Skin is without bruises or rashes Psychologically is without concerns for anxiety or depression Results & Data Results & [facility] ([facility]) Vital Signs (Past 12 Hours) Vital Signs Temp Pulse Pulse Resp BP Pulse Ox 01/22/21 08:03 98.2 F 100 H 20 93/57 L 95 01/22/21 07:10 97 H 01/22/21 03:23 97.9 F 102 H 18 97/66 L 94 01/22/21 03:19 100 H 18 94 01/22/21 01:13 103 H 01/21/21 23:02 100 H 16 96 01/21/21 22:45 98.4 F 68 19 100/73 96 PG Care Time/CCT Total # of Minutes Spent Total Time Spent with Patient: Total time spent is greater than 50% in coordination of care (as documented) at patient's floor/unit and/or counseling patient: Coding Level of Care Code 80565 Subseq Hosp Care Lvl 3 Diagnoses Severe chronic obstructive pulmonary disease J44.9 Presence of drug coated stent in left circumflex coronary artery Z95.5 Dyslipidemia, goal LDL below 70 E78.5 Type 2 diabetes mellitus E11.9 Depression F32.9 Diarrhea R19.7 DVT prophylaxis Z29.9
[2021-01-22] MEDS: methylPREDNISolone 40 MG in SYRINGE 0 ML IV SCH (08:18)
[2021-01-22] MEDS: guaiFENesin 600 MG TABCR PO SCH ×2 (08:19→20:58)
[2021-01-22] MEDS: DOXYCYCLINE HYCLATE 100 MG CAP PO SCH ×2 (08:19→20:58)
[2021-01-22] MEDS: ROFLUMILAST 500 MCG TAB PO SCH (08:19)
[2021-01-22] MEDS: DULoxetine HCL 60 MG CAP PO SCH (08:19)
[2021-01-22] MEDS: PANTOprazole 40 MG TAB PO SCH (08:19)
[2021-01-22] MEDS: CYANOCOBALAMIN 500 MCG TABLET (VITAMIN B-12) PO SCH (08:20)
[2021-01-22] MEDS: GABAPENTIN 600 MG TAB PO SCH ×3 (08:20→20:58)
[2021-01-22] MEDS: ASPIRIN 81 MG ECTAB PO SCH (08:20)
[2021-01-22] MEDS: ATORVASTATIN 40 MG TAB PO SCH (08:20)
[2021-01-22] MEDS: METOPROLOL SUCC 50MG EXT REL TAB PO SCH (08:21)
[2021-01-22] MEDS: CLOPIDOGREL BISULFATE 75 MG TAB PO SCH (08:22)
[2021-01-22] MEDS ORDERED: carvediloL 6.25 MG TAB PO SCH (09:00)
--- NOTE | 2021-01-22 15:18 | Pulmonary Consultation ---
Date of Consultation January 22, 2021 Assessment & Plan (1) Severe chronic obstructive pulmonary disease: Chest x-ray 01/20/2021 personally reviewed: Portable film, hyperinflated lung, bilateral costophrenic and cardiophrenic thickening. 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 We will continue with same. Unclear if the patient is in COPD exacerbation. He denied any significant symptoms of cough. He does state that he has phlegm which is difficult to bring up. Continue with Daliresp. At home he is taking azithromycin 250mg 1 tab Thursday Patient is still taking 10 mg of prednisone on a daily basis. I had on multiple occasions discuss regarding the risk of continuing it and try to titrate off for a month's time. 6-MWT 01/08/2021: Patient was able to walk 924 feet (281 m). The lowest saturation that he went down was 91% PFTs 01/08/2021: Severe COPD with emphysema, insignificant bronchodilator response, severe decrease in DLCO which partially corrects for VA FVC 2.94 L, 59%, FEV1 1.48 L, 38%, FEV1/FVC 50%, RV 149%, TLC 92%, RV/TLC 157%, DLCO 32%, DLCO/VA 51% 2D echo 01/03/2021: EF 55-60%, grade 1 diastolic dysfunction, right ventricle is normal in size and function --Multiple pulmonary nodules Unchanged dating back to 2017, likely representing scarring Continue to monitor --Advanced adenocarcinoma of the lung Diagnosed 2011, s/p chemo and radiation Last chemo was back in 2011. Plan: Severe COPD with emphysema. He is on optimal inhaler therapy as well as azithromycin and Daliresp [facility] has been following up for possible transplant of the lung. Unsure if the symptoms were from COPD exacerbation. We will decrease the Solu- Medrol to 40 once a day. Starting tomorrow can transition to p.o. prednisone 40 mg for 3 days followed by 20 mg for 2 days and then gradually taper it off this patient has been taking 10 mg for prolonged duration of time. Agree with doxycycline for 5 days and then go back to the home dose of azithromycin. Continue with guaifenesin with flutter valve. Please note the above document was generated using voice recognition software. It may contain grammatical, syntax or spelling errors.Any formal questions or concerns about the content, text or information contained within the body of this dictation should be directly addressed to the provider for clarification. (2) History of lung cancer: (3) Pulmonary emphysema: History of Present Illness Attending Physician: Rodo Ludwig MD History of Present Illness 60-year-old male who has been following with pulmonary because of severe COPD and emphysema Past medical history: GERD, allergies, Advanced adenocarcinoma back in 2011 s/p chemo and radiation. Patient is known to me from clinic and I had seen him last on 01/08/2021. On the last visit I had added Roflumilast to his regimen. Which he has been taking. In the interim patient had an NSTEMI and stent was placed in mid circumflex on 01/15/2021 Patient was complaining of difficulty breathing on the evening of 417 and asked why he had to come to the ER. He denied any worsening cough, he did complain of crackling sound in the chest. There is no change in phlegm production. [place] denies any chest pain right now no pressure-like chest pain. Does complain of occasional chest tightness unable to bring up phlegm. No fever or chills. No dysuria, no diarrhea. No hematuria, no hematochezia. Patient has been compliant with his inhalers as well as medications. Social history: Greater than 20-cdna-aiwa smoking history, quit May 2020, used to be heavy drinker quit 15 years ago, denies any illicit drug use. 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 Did not wear any mask at that time Pets: Has a dog at home, no birds or poultry nearby Allergies: Seasonal does not take any medications for it No personal or family history of asthma. No family history of lung cancer. History of emphysema in the family who were smokers Allergies Allergy/AdvReac Type Severity Reaction Status Date / Time No Known Allergies Allergy Verified 01/20/21 14:28 Home Medications Medication Instructions Recorded Confirmed Type ondansetron HCl 4 mg tablet 4 mg PO DAILY PRN #30 tab 12/14/19 01/20/21 Rx cyanocobalamin (vitamin B-12) 2,000 mcg PO DAILY 05/14/20 01/20/21 History [Vitamin B-12] azelastine 2 spray INTNAS BID PRN 07/27/20 01/20/21 History gabapentin 600 mg tablet 600 mg PO TID 30 Days #90 tab 09/17/20 01/20/21 Rx prednisone 10 mg tablet 10 mg PO DAILY #90 tab 11/12/20 01/20/21 Rx albuterol sulfate 90 mcg/actuation 2 puff INHALATION Q6H PRN #18 g 01/08/21 01/20/21 Rx aerosol inhaler azithromycin 250 mg tablet 250 mg PO 3XWK #15 tab 01/08/21 01/20/21 Rx fluticasone furoate 100 1 inh INHALATION QAM #60 ea 01/08/21 01/20/21 Rx mcg-vilanterol 25 mcg/dose inhalation powder roflumilast 250 mcg tablet 250 mcg PO DAILY 14 Days #14 tab 01/08/21 01/20/21 Rx roflumilast 500 mcg tablet 500 mcg PO DAILY #60 tab 01/08/21 01/20/21 Rx umeclidinium 62.5 mcg/actuation 1 inh INH QPM #3 inhaler 01/08/21 01/20/21 Rx blister powder for inhalation albuterol sulfate 2.5 mg INHALATION Q4H PRN #180 ml 01/09/21 01/20/21 Rx ipratropium bromide 0.02 % 2.5 ml INHALATION Q4H PRN #180 ml 01/09/21 01/20/21 Rx solution for inhalation nitroglycerin [Nitrostat] 0.4 mg SUBLINGUAL PRN PRN 10 Days 01/16/21 01/20/21 Rx #10 tab omeprazole 40 mg PO DAILY 28 Days #28 cap 01/16/21 01/20/21 Rx metoprolol succinate 50 mg PO DAILY #30 tab 01/17/21 01/20/21 Rx atorvastatin 80 mg PO QAM 01/20/21 01/20/21 History duloxetine 60 mg capsule,delayed 60 mg PO DAILY 90 Days #90 cap 01/21/21 Rx release Patient History Medical History Anxiety Asthma Chest pain Constipation Depression GERD (gastroesophageal reflux disease) H/O pneumothorax History of lung cancer DX 2011-LEFT LOBE/NO SURGERY/RADIATION/CHEMO History of pulmonary embolus (PE) 2017-NO ISSUES SINCE Hypertension NO MEDS Neuropathy Pulmonary emphysema Severe chronic obstructive pulmonary disease SOB (shortness of breath) on exertion Stomach ulcer HX -UNDER CONTROL Tobacco use disorder Surgical History History of colonoscopy History of esophagogastroduodenoscopy (EGD) History of lung surgery STENT TO [id number]? History of vascular access device PORT PLACEMENT-UPPER LEFT IN PLACE S/P laparoscopic cholecystectomy Family History Mother Coronary heart disease Father , age 90 COPD (chronic obstructive pulmonary disease) Diabetes Lung cancer Aunt Cancer Uncle Diabetes Brother Hypertension Other No family history of bleeding disorder Social History Smoking Status: Former smoker packs per day: 1; Years Smoked: 37; Cigarettes Per Day: does smoke occ cigar when golfing; Second Hand Exposure: Yes; Do You Dip or Chew Tobacco: No; Tobacco Cessation Education Requested by Patient: No Hx Alcohol Use: No Hx Substance Use: No Preferred Language: Palestinian Communication Ability: Effective Visual Impairment: No Limitations Hearing Ability: Normal Plywood Patcher Required: No Beliefs That Will Affect Care: None marital status: Single marital status details: but has 1 daughter Current Living Situation: Alone Current Living Situation Comment: brother stays w/pt periodically current occupational status: employed and disabled 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 How many Children do You have: 1 Other Information That Helps Us Care for You: No Feels Safe at Home: Yes Safety Concerns: Feels Safe At This Time Assistive Devices: None Review of Systems Review of Systems: All systems reviewed & are unremarkable except as noted in HPI & below Physical Exam Physical Exam: Constitutional: No acute distress HEENT: EOMI, PERRLA Respiratory system: Decreased air entry bilaterally, no wheeze, no rhonchi, no crackles CVS: S1-S2 positive, no murmurs or gallops, distant heart sounds Abdomen: Soft, nontender, nondistended, positive bowel sounds x4 Extremities: +2 pulses bilaterally radialis/ dorsalis pedis, no cyanosis, no edema Neuro: Awake alert oriented x3 Psych: Normal mood and affect G/U: No Grigsby Skin: no rashes, warm and dry Lymphatic: no cervical or axillary lymphadenopathy Results & Data Results & Data ([facility]) Vital Signs (Past 12 Hours) Vital Signs Temp Pulse Pulse Resp BP Pulse Ox 01/22/21 11:06 36.5 C 96 H 20 105/71 96 01/22/21 10:56 102 H 20 94 01/22/21 08:03 36.8 C 100 H 20 93/57 L 95 01/22/21 07:10 97 H 01/22/21 03:23 36.6 C 102 H 18 97/66 L 94 01/22/21 03:19 100 H 18 94 01/22/21 06:32 01/22/21 06:32 PG Care Time/CCT Total # of Minutes Spent Total Time Spent with Patient: Total time spent is greater than 50% in coordination of care (as documented) at patient's floor/unit and/or counseling p atient: Coding Level of Care Code 51976 Initial Inpt Care Lvl 3 Diagnoses Severe chronic obstructive pulmonary disease J44.9 History of lung cancer Z85.118 Pulmonary emphysema J43.9
[2021-01-22] MEDS: UMECLIDINIUM BROMIDE 62.5MCG/BLISTER 7 PUFFS/INHALER INH SCH (17:23)
[2021-01-22] MEDS: FLUTICASONE/VILANTEROL 100/25MCG 14 PUFFS/INHALER INH SCH (17:24)
[2021-01-22] MEDS: ENOXAPARIN INJ 40 MG/0.4 ML SYR SQ SCH (19:11)
[2021-01-23] MEDS: ALBUT/IPRATROP 3MG/0.5MG NEB 3 ML VIAL NEB SCH ×2 (03:22→07:10)
[2021-01-23] MEDS: ASPIRIN 81 MG ECTAB PO SCH (08:11)
[2021-01-23] MEDS: CLOPIDOGREL BISULFATE 75 MG TAB PO SCH (08:11)
[2021-01-23] MEDS: ATORVASTATIN 40 MG TAB PO SCH (08:11)
[2021-01-23] MEDS: DULoxetine HCL 60 MG CAP PO SCH (08:12)
[2021-01-23] MEDS: DOXYCYCLINE HYCLATE 100 MG CAP PO SCH ×2 (08:12→20:50)
[2021-01-23] MEDS: CYANOCOBALAMIN 500 MCG TABLET (VITAMIN B-12) PO SCH (08:12)
[2021-01-23] MEDS: guaiFENesin 600 MG TABCR PO SCH ×2 (08:13→20:49)
[2021-01-23] MEDS: FLUTICASONE/VILANTEROL 100/25MCG 14 PUFFS/INHALER INH SCH (08:13)
[2021-01-23] MEDS: methylPREDNISolone 40 MG in SYRINGE 0 ML IV SCH (08:13)
[2021-01-23] MEDS: GABAPENTIN 600 MG TAB PO SCH ×3 (08:13→20:49)
[2021-01-23] MEDS: UMECLIDINIUM BROMIDE 62.5MCG/BLISTER 7 PUFFS/INHALER INH SCH (08:14)
[2021-01-23] MEDS: ROFLUMILAST 500 MCG TAB PO SCH (08:14)
[2021-01-23] MEDS: HEPARIN 100 UNIT/ML 5ML FLUSH FLUSH PRN (08:14)
[2021-01-23] MEDS: PANTOprazole 40 MG TAB PO SCH (08:14)
[2021-01-23] MEDS: METOPROLOL SUCC 50MG EXT REL TAB PO SCH (08:14)
[2021-01-23] MEDS: INSULIN ASPART 100 UNITS/ML 3 ML PEN SC SCH ×4 (08:19→20:52)
[2021-01-23 08:47] LABS: BUN Creatinine Ratio 19.1 (10-20); Calcium 9.4 mg/dl (8.5-10.1); Creatinine Clr Calc Pharmacy 81.3 ml/min; Est GFR (Non-African American) 75.9; Potassium 3.7 mmol/L (3.5-5.1)
[2021-01-23] MEDS ORDERED: ALBUT/IPRATROP 3MG/0.5MG NEB 3 ML VIAL NEB PRN (09:52)
--- NOTE | 2021-01-23 13:52 | Pulmonology Progress Note ---
Date of Service January 23, 2021 Assessment & Plan (1) Severe chronic obstructive pulmonary disease: Chest x-ray 01/20/2021 personally reviewed: Portable film, hyperinflated lung, bilateral costophrenic and cardiophrenic thickening. 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 We will continue with same. Unclear if the patient is in COPD exacerbation. He denied any significant symptoms of cough. He does state that he has phlegm which is difficult to bring up. Continue with Daliresp. At home he is taking azithromycin 250mg 1 tab Thursday Patient is still taking 10 mg of prednisone on a daily basis. I had on multiple occasions discuss regarding the risk of continuing it and try to titrate off for a month's time. 6-MWT 01/08/2021: Patient was able to walk 924 feet (281 m). The lowest saturation that he went down was 91% PFTs 01/08/2021: Severe COPD with emphysema, insignificant bronchodilator response, severe decrease in DLCO which partially corrects for VA FVC 2.94 L, 59%, FEV1 1.48 L, 38%, FEV1/FVC 50%, RV 149%, TLC 92%, RV/TLC 157%, DLCO 32%, DLCO/VA 51% 2D echo 01/03/2021: EF 55-60%, grade 1 diastolic dysfunction, right ventricle is normal in size and function --Multiple pulmonary nodules Unchanged dating back to 2017, likely representing scarring Continue to monitor --Advanced adenocarcinoma of the lung Diagnosed 2011, s/p chemo and radiation Last chemo was back in 2011. We will refer the patient to [facility] for lung transplant. Plan: Severe COPD with emphysema. He is on optimal inhaler therapy as well as azithromycin and Daliresp Starting tomorrow can transition to p.o. prednisone 40 mg for 3 days followed by 20 mg for 2 days and then gradually taper it off this patient has been taking 10 mg for prolonged duration of time. Agree with doxycycline for 5 days and then go back to the home dose of azithromycin. Continue with guaifenesin with flutter valve. Pulmonary rehab as an outpatient will be very beneficial to the patient. With he will need to have clearance from cardiology prior to going there as he had recent stent placed. Case discussed with Dr Ludwig Please note the above document was generated using voice recognition software. It may contain grammatical, syntax or spelling errors.Any formal questions or concerns about the content, text or information contained within the body of this dictation should be directly addressed to the provider for clarification. (2) History of lung cancer: (3) Pulmonary emphysema: Admission and Anticipated Discharge Date Admission Date: January 20, 2021 Subjective Patient seen and examined at bedside. No acute distress, no adverse events overnight. Patient states that he is feeling better than he came in with but no significant change after that. He was upset today because he got a phone call from [facility] transplant team stating that he will not be a candidate because of history of radiation to the chest. I did tell him that we have other transplant centers where we can try including [facility]. I am going to refer him to [facility]. Staff is already working on sending the paperwork there. Denies any chest pain, no headache, no nausea, no vomiting. No dysuria, no diarrhea. Review of Systems Review of Systems: All systems reviewed & are unremarkable except as noted in Subjective Physical Exam Physical Exam: Constitutional: No acute distress HEENT: EOMI, PERRLA Respiratory system: Decreased air entry bilaterally, no wheeze, no rhonchi, no crackles CVS: S1-S2 positive, no murmurs or gallops, distant heart sounds Abdomen: Soft, nontender, nondistended, positive bowel sounds x4 Extremities: +2 pulses bilaterally radialis/ dorsalis pedis, no cyanosis, no edema Neuro: Awake alert oriented x3 Psych: Normal mood and affect G/U: No Grigsby Skin: no rashes, warm and dry Lymphatic: no cervical or axillary lymphadenopathy Results & Data Results & Data ([facility]) Vital Signs (Past 12 Hours) Vital Signs Temp Pulse Pulse Resp BP Pulse Ox 01/23/21 12:02 36.4 C L 99 H 19 101/71 97 01/23/21 07:52 36.5 C 94 H 18 95/62 L 96 01/23/21 07:21 93 H 01/23/21 07:10 92 H 18 94 01/23/21 03:01 36.7 C 65 18 93/56 L 96 01/23/21 02:37 98 H 01/22/21 06:32 01/23/21 07:54 PG Care Time/CCT Total # of Minutes Spent Total Time Spent with Patient: Total time spent is greater than 50% in family services coordinator rdination of care (as documented) at patient's floor/unit and/or counseling patient: Coding Level of Care Code 85375 Subseq Hosp Care Lvl 3 Diagnoses Severe chronic obstructive pulmonary disease J44.9 History of lung cancer Z85.118 Pulmonary emphysema J43.9
[2021-01-23] MEDS: ENOXAPARIN INJ 40 MG/0.4 ML SYR SQ SCH (15:39)
--- NOTE | 2021-01-23 17:12 | Hospitalist Progress Note ---
Date of Service January 23, 2021 Assessment & Plan (1) Severe chronic obstructive pulmonary disease: Patient severe shortness of breath and sputum production likely may be bronchitis with a acute on chronic respiratory failure with hypoxemia. Pt typically is not on home oxygen. Patient is some improvement remains fairly dyspneic lessening his need of oxygenation, tapering his steroids will eventually taper to prednisone on 01/24/2021 continue his PPI scheduling his bronchodilators. 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 Serial troponins were unrevealing and the patient has a low ESR (3) Dyslipidemia, goal LDL below 70: Atorvastatin 80 will be utilized (4) Type 2 diabetes mellitus: Patient's hemoglobin A1c is 7.3 steroids likely make his glucose higher glucose on admission was 160 will have on a carbohydrate conservative diet sliding scale insulin. (5) Depression: We will continue duloxetine (6) Diarrhea: this is a new issue for pt, will rule out covid and C diff check stool cultures (7) DVT prophylaxis: lovenox for dvt prevention Admission and Anticipated Discharge Date Admission Date: January 20, 2021 Subjective Patient states his breathing is is returned to its normal state. He is markedly saddened today as [facility] had called him and told him he is not a candidate for lung transplantation. I did personally speak to his carpenter helper maintenance who is going to apply for lung transplantation evaluation at other institutions.. The patient does not have any chest pain or pressure. The patient has a nonproductive cough continuing mucinex and using flutter valve. Review of Systems Review of Systems: Moderate respiratory distress and fatigue no headache, blurry or double vision no speech or swallowing issues no chest pain, pressure or palpitations Significant shortness of breath even with talking nonproductive coughing no abdominal pain, nausea or vomiting, diarrhea or constipation no dysuria, hematuria or frequency no focal joint pain or swelling no back pain, CVA tenderness or radicular pain no bruising, bleeding or rashes no focal signs of weakness or numbness or altered sensation no complaints of anxiety or depression.. Physical Exam Physical Exam: The patient appeared chronically ill and in moderate respiratory distress Vital signs as documented. Head exam is normocephalic atraumatic no scleral icterus Neck is without JVD, thyromegaly, or carotid bruits. Lungs are poor air movement prolonged expiratory phase no focal wheezes Cardiac exam, Rhythm is regular.. No murmurs, rubs or gallops. Abdominal exam reveals normal bowel sounds, soft non tender, no masses Extremities are nonedematous and both pedal pulses are present Neurologic exam is alert and oriented, no focal loss of strength or sensation Skin is without bruises or rashes Psychologically is without concerns for anxiety or depression Results & Data Results & Data ([facility]) Vital Signs (Past 12 Hours) Vital Signs Temp Pulse Pulse Resp BP Pulse Ox 01/23/21 15:35 97.7 F 96 H 18 96/70 L 95 01/23/21 15:08 96 H 01/23/21 12:02 97.5 F L 99 H 19 101/71 97 01/23/21 07:52 97.7 F 94 H 18 95/62 L 96 01/23/21 07:21 93 H 01/23/21 07:10 92 H 18 94 PG Care Time/CCT Total # of Minutes Spent Total Time Spent with Patient: Total time spent is greater than 50% in coordination of care (as documented) at patient's floor/unit and/or counseling patient: Coding Level of Care Code 81847 Subseq Hosp Care Lvl 3 Diagnoses Severe chronic obstructive pulmonary disease J44.9 Presence of drug coated stent in left circumflex coronary artery Z95.5 Dyslipidemia, goal LDL below 70 E78.5 Type 2 diabetes mellitus E11.9 Depression F32.9 Diarrhea R19.7 DVT prophylaxis Z29.9
[2021-01-24] MEDS: CLOPIDOGREL BISULFATE 75 MG TAB PO SCH (07:45)
[2021-01-24] MEDS: ASPIRIN 81 MG ECTAB PO SCH (07:45)
[2021-01-24] MEDS: ATORVASTATIN 40 MG TAB PO SCH (07:45)
[2021-01-24] MEDS: DULoxetine HCL 60 MG CAP PO SCH (07:46)
[2021-01-24] MEDS: FLUTICASONE/VILANTEROL 100/25MCG 14 PUFFS/INHALER INH SCH (07:46)
[2021-01-24] MEDS: DOXYCYCLINE HYCLATE 100 MG CAP PO SCH (07:46)
[2021-01-24] MEDS: CYANOCOBALAMIN 500 MCG TABLET (VITAMIN B-12) PO SCH (07:46)
[2021-01-24] MEDS: guaiFENesin 600 MG TABCR PO SCH (07:47)
[2021-01-24] MEDS: PANTOprazole 40 MG TAB PO SCH (07:47)
[2021-01-24] MEDS: GABAPENTIN 600 MG TAB PO SCH (07:47)
[2021-01-24] MEDS: methylPREDNISolone 40 MG in SYRINGE 0 ML IV SCH (07:47)
[2021-01-24] MEDS: ROFLUMILAST 500 MCG TAB PO SCH (07:47)
[2021-01-24] MEDS: UMECLIDINIUM BROMIDE 62.5MCG/BLISTER 7 PUFFS/INHALER INH SCH (07:48)
[2021-01-24] MEDS: INSULIN ASPART 100 UNITS/ML 3 ML PEN SC SCH ×2 (07:52→11:48)
[2021-01-24 07:58] LABS: Hematocrit (blood only) 49.8 % (42-52); Hemoglobin 17.1 g/dL (14.0-18.0); Mean Corpuscular Hemoglobin 30.9 pg (25-34); Mean Corpuscular Hgb Conc 34.3 g/dL (32-36); Mean Corpuscular Volume 90.1 fL (80-100); Mean Platelet Volume 9.4 fL (7.4-10.4); Platelet Count 325 K/uL (130-400); RDW Coefficient of Variation 15.6 % (11.5-14.5); RDW Standard Deviation 51.5 fL (36.4-46.3); Red Blood Count 5.53 M/uL (4.7-6.1); White Blood Count 11.25 K/uL (4.8-10.8)
[2021-01-24 08:23] LABS: Calcium 9.4 mg/dl (8.5-10.1); Creatinine Clr Calc Pharmacy 91.7 ml/min; Est GFR (African American) 101.7; Est GFR (Non-African American) 87.8; Potassium 3.5 mmol/L (3.5-5.1)
[2021-01-24] MEDS: METOPROLOL SUCC 50MG EXT REL TAB PO SCH (11:35)
[2021-01-24] MEDS: HEPARIN 100 UNIT/ML 5ML FLUSH FLUSH PRN (11:48)
--- NOTE | 2021-01-24 17:41 | Discharge Summary ---
Date of Service January 24, 2021 Admission HPI Per Admitting Provider 60-year-old male who presented to the emergency department for an evaluation of shortness of breath worse than his baseline. At his baseline he has golds class D The patient was seen in our facility 01/15- with similar complaints at that time he was diagnosed with an NSTEMI. The patient went to the [facility] and did have a drug eluting stent placed in OM2 mid circumflex. He was diagnosed with diabetes also during that stay The patient started having difficulty breathing 01/19 in the evening. He states he has "phlegm" that he feels in the back of his throat. He denies having any fever. The cough is not productive. His shortness of breath is worsened with exertion but not with lying flat. He denies having any lower extremity swelling. He did note ecchymosis to both knees and is unsure why because he had no trauma to his knees. The patient denies having any abdominal pain or chest pain. The patient states his symptoms are moderate at this time. They are relieved with rest and oxygen. The patient presented directly to the emergency department for these symptoms. He states that they have been constant ever since last evening. He does a history of lung cancer as well as COPD. Principal Diagnosis acute on chronic respiratory failure-NOT COPD exacerbation Discharge Exam Constitutional well developed and well nourished Eyes PERRL, conjunctivae normal, anicteric sclerae Neck trachea midline Thyroid: normal thyroid Respiratory + respiratory distress, + labored breathing, + uses accessory muscles and + abnormal respiratory pattern Auscultation: lungs clear to auscultation bilaterally and + abnormal I/E ratio Cardiovascular RRR, no murmur, no edema Gastrointestinal (Abdomen) normal bowel sounds, soft, nontender, no hepatosplenomegaly Musculoskeletal no cyanosis or clubbing, extremities motor strength 5/5 Skin no rashes, warm and dry Neurologic PERRL, EOMI, accommodation nl, no face palsy, no dysarthria Psychiatric A+Ox3, euthymic affect Discharge Data Allergies Allergy/AdvReac Type Severity Reaction Status Date / Time No Known Allergies Allergy Verified 01/20/21 14:28 Consultations 01/20/21 13:20 ED Decision to Admit Stat 01/22/21 14:41 Consult Pulmonology Routine Hospital Course (1) Severe chronic obstructive pulmonary disease: Patient severe shortness of breath and sputum production likely may be bronchitis with a acute on chronic respiratory failure with hypoxemia. Pt typically is not on home oxygen. Patient is some improvement remains fairly dyspneic lessening his need of oxygenation, tapering his steroids will eventually taper to prednisone on 01/24/2021 continue his PPI scheduling his bronchodilators. 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 Serial troponins were unrevealing and the patient has a low ESR (3) Dyslipidemia, goal LDL below 70: Atorvastatin 80 will be utilized (4) Type 2 diabetes mellitus: Patient's hemoglobin A1c is 7.3 steroids likely make his glucose higher glucose on admission was 160 will have on a carbohydrate conservative diet will not start home medications at this time (5) Depression: We will continue duloxetine (6) Diarrhea: resolved no infectious issues suspected Total Time Total Time Spent Total Time Spent (In Minutes): greater that 30 minutes were required to prepare this discharge summary Discharge Plan Discharge Items Patient Disposition: Home - Self-Care Reason For Visit: ACUTE ON CHRONIC RESPIRATORY FAILURE WITH HYPOXIA Discharge Diagnosis: acute on chronic respiratory failure bronchitis Activity: Per Instructions section Activity Comment: limit exertion Non-emergency contact: Primary Care Provider and Dredgemaster Call non-emergency contact if: you have any medication questions and your symptoms worsen Follow-up/Referrals: Isak Zuniga III, MD [Primary Care Provider] - 01/30/21 11:30 am (THIS APPOINTMENT WILL BE WITH [facility]) Diet: Regular Addtl Attending Provider Instructions: please pace yourself with exertion to keep from getting too short of breath please follow up with Dr Zuniga next week to discuss eventual prednisone dose- >4 pills a day x 3 days, then 2 pills a day x 3 days then 1 a day please be sure you take a baby aspirin 81 mg once a day, over the counter aspirin is ok to use Pending Studies at Discharge: No Stand-Alone Forms: My [facility], Smoking Cessation Medications and DC Order Prescriptions: New clopidogrel 75 mg Tablet 75 mg PO QAM Qty: 90 RF: 3 Continued ondansetron HCl [Zofran] 4 mg tablet 4 mg PO DAILY PRN (Reason: nausea and vomiting) Qty: 30 RF: 2 gabapentin 600 mg tablet 600 mg PO TID 30 Days Qty: 90 RF: 5 albuterol sulfate 2.5 mg /3 mL (0.083 %) solution for nebulization 2.5 mg inhalation Q4H PRN (Reason: COPD) Qty: 180 RF: 5 ipratropium bromide 0.02 % solution 2.5 ml inhalation Q4H PRN (Reason: COPD) Qty: 180 RF: 5 duloxetine 60 mg capsule,delayed release(DR/EC) 60 mg PO DAILY 90 Days Qty: 90 RF: 1 Incruse Ellipta 62.5 mcg/actuation blister with device 1 inh INH QPM Qty: 3 RF: 1 Breo Ellipta 100-25 mcg/dose blister with device 1 inh inhalation QAM Qty: 60 RF: 2 azithromycin 250 mg tablet 250 mg PO 3XWK Qty: 15 RF: 5 albuterol sulfate 90 mcg/actuation HFA aerosol inhaler 2 puff inhalation Q6H PRN (Reason: Shortness Of Breath Or Wheezing) Qty: 18 RF: 3 Daliresp 500 mcg tablet 500 mcg PO DAILY Qty: 60 RF: 2 Daliresp 250 mcg tablet 250 mcg PO DAILY 14 Days Qty: 14 RF: 0 cyanocobalamin (vitamin B-12) [Vitamin B-12] 2,000 mcg Tablet Extended Release 2,000 mcg PO DAILY RF: 0 azelastine 137 mcg (0.1 %) aerosol,spray 2 spray INTNAS BID PRN (Reason: ALLERGIC RHINITIS) RF: 0 nitroglycerin [Nitrostat] 0.4 mg Tablet, Sublingual 0.4 mg sublingual PRN PRN (Reason: chest pain) 10 Days Qty: 10 RF: 0 omeprazole 40 mg capsule,delayed release(DR/EC) 40 mg PO DAILY 28 Days Qty: 28 RF: 0 metoprolol succinate 50 mg tablet extended release 24 hr 50 mg PO DAILY Qty: 30 RF: 0 atorvastatin 80 mg tablet 80 mg PO QAM RF: 0 Changed prednisone 10 mg tablet 10 mg PO UD Qty: 90 RF: 3 Discharge Orders: Discharge Order (Routine); Ordered 01/24/21 Ordered By: Rodo Ludwig Admission Data Admit Date/Time: 01/20/21 14:37 Attending Provider: Rodo Ludwig Admit Provider: Rodo Ludwig Primary Care Provider: Isak Zuniga III Other Providers: Rodo Ludwig ; Nathalia Alicia Other Interventions: Discharge Summary Assessment (RN) Last Done: 01/24/21 11:32 Coding Level of Care Code D/C Day Management >30 mins Diagnoses Severe chronic obstructive pulmonary disease J44.9 Presence of drug coated stent in left circumflex coronary artery Z95.5 Dyslipidemia, goal LDL below 70 E78.5 Type 2 diabetes mellitus E11.9 Depression F32.9 Diarrhea R19.7
== END 2021-01-24 12:36 | disposition home or self-care (01) | DRG 190 ==
LOC: ED 12:04 → 2W 14:37

== ENCOUNTER 2022-02-15 00:19 | Inpatient (IN) ==
[2022-02-15] MEDS ORDERED: fentaNYL citrate 100 MCG/2 ML VIAL IV STA ×2 (00:53→02:26)
[2022-02-15] MEDS ORDERED: ACETAMINOPHEN 1,000 MG/100 ML VIAL IV STA (00:53)
[2022-02-15] MEDS ORDERED: ONDANSETRON INJ 2 MG/ML 2 ML VIAL IV STA (01:11)
[2022-02-15 01:13] LABS: Hematocrit (blood only) 48.2 % (42-52); Hemoglobin 15.5 g/dL (14.0-18.0); Mean Corpuscular Hemoglobin 28.8 pg (25-34); Mean Corpuscular Hgb Conc 32.2 g/dL (32-36); Mean Corpuscular Volume 89.4 fL (80-100); Mean Platelet Volume 9.4 fL (7.4-10.4); Platelet Count 328 K/uL (130-400); RDW Coefficient of Variation 15.5 % (11.5-14.5); RDW Standard Deviation 50.9 fL (36.4-46.3); Red Blood Count 5.39 M/uL (4.7-6.1)
--- NOTE | 2022-02-15 01:15 | Emergency Department Note ---
History of Present Illness General Chief complaint: Pain (Generalized) Stated complaint: PAIN Time Seen by Provider: 02/15/22 00:32 Source: patient Mode of arrival: ambulatory Limitations: no limitations History of Present Illness Provider complaint: right flank pain, hematuria Maximum Pain Intensity: 10 This is a 61-year-old male presents emergency department complaining of abrupt onset of right flank pain between 930 this evening. Patient had been seen and evaluated earlier today with hematuria. Patient does have history of prostate cancer and follows with urology. Patient also has a history of lung cancer. Patient underwent a CT of his abdomen and pelvis at that time and was found to have a 3 mm right distal ureteral stone. Patient had no flank pain at that time and was sent home. Patient states he did take an oxycodone upon going home when the pain started, however had no resolution so he return the emergency room. He states he was nauseated but did not actually vomit. Patient denies fevers or chills. Patient states he is still seeing gross hematuria. He does take Flomax daily already. On review of EMR, patient's prior CT showed a 3 mm distal stone. No other acute abnormalities noted. Pt seen during a time of high acuity and national emergency pandemic while wearing PPE. Home Medications Medication Instructions Recorded Confirmed Type cyanocobalamin (vitamin B-12) 2,000 mcg PO DAILY 05/14/20 02/15/22 History 2,000 mcg tablet,extended release (Vitamin B-12 ER) metformin 500 mg tablet 500 mg PO BID #180 tab 07/09/21 02/15/22 Rx blood sugar diagnostic (TreSensaTouch #100 ea 07/11/21 02/13/22 Rx Verio test strips) lancets 30 gauge (OneTouch Delica #100 ea 07/11/21 02/13/22 Rx Lancets) aspirin 81 mg tablet,delayed 81 mg PO DAILY #90 tab 08/15/21 02/15/22 Rx release (Adult Low Dose Aspirin) dextromethorphan-guaifenesin 10 10 ml PO Q6H PRN #237 ml 09/09/21 02/15/22 Rx mg-100 mg/5 mL oral liquid gabapentin 600 mg tablet 600 mg PO TID 30 Days #90 tab 09/19/21 02/15/22 Rx azelastine 137 mcg (0.1 %) nasal 1 spray INTRANASAL BID PRN 12/18/21 02/15/22 History spray aerosol duloxetine 60 mg capsule,delayed 60 mg PO DAILY 90 Days #90 cap 01/06/22 02/15/22 Rx release albuterol sulfate 2.5 mg INHALATION Q4H PRN #180 ml 01/10/22 02/15/22 Rx albuterol sulfate 90 mcg/actuation 2 puff INHALATION Q6H PRN #18 g 01/10/22 02/15/22 Rx aerosol inhaler fluticasone furoate 100 1 inh INHALATION QAM #60 ea 01/10/22 02/15/22 Rx mcg-vilanterol 25 mcg/dose inhalation powder (Breo Ellipta) ipratropium bromide 0.02 % 2.5 ml INHALATION Q4H PRN #180 ml 01/10/22 02/15/22 Rx solution for inhalation roflumilast 500 mcg tablet 500 mcg PO DAILY #90 tab 01/10/22 02/15/22 Rx (Daliresp) umeclidinium 62.5 mcg/actuation 1 inh INH QPM #3 inhaler 01/10/22 02/15/22 Rx blister powder for inhalation (Incruse Ellipta) tamsulosin 0.4 mg capsule 0.4 mg PO BIDWMEAL #180 cap 01/23/22 02/15/22 Rx atorvastatin 80 mg tablet 80 mg PO DAILY #90 tab 01/28/22 02/15/22 Rx omeprazole 40 mg capsule,delayed 40 mg PO DAILY #90 cap 01/28/22 02/15/22 Rx release prednisone 10 mg tablet 10 mg PO DAILY #90 tab 01/28/22 02/15/22 Rx metoprolol succinate 50 mg 50 mg PO DAILY #90 tab 02/10/22 02/15/22 Rx tablet,extended release 24 hr cephalexin 500 mg capsule 500 mg PO BID 02/15/22 02/15/22 History Allergies Allergy/AdvReac Type Severity Reaction Status Date / Time No Known Allergies Allergy Verified 02/13/22 09:19 Past Med/Surg History Medical History Anxiety Asthma Avascular necrosis of bones of both hips BPH with elevated PSA CAD (coronary artery disease) Chest pain Constipation Depression Dyslipidemia, goal LDL below 70 GERD (gastroesophageal reflux disease) H/O pneumothorax History of lung cancer (2011) DX 2012-LEFT LOBE/NO SURGERY/RADIATION/CHEMO History of pulmonary embolus (PE) 2017-NO ISSUES SINCE Hypertension NO MEDS Kidney stone on right side Neuropathy Non-small cell lung cancer (03/06/12) Presence of drug coated stent in left circumflex coronary artery (01/2021) Prostate cancer Severe chronic obstructive pulmonary disease Sinus tachycardia SOB (shortness of breath) on exertion STEMI (ST elevation myocardial infarction) (01/2021) Stomach ulcer HX -UNDER CONTROL Tobacco use disorder Type 2 diabetes mellitus Vitamin B12 deficiency Surgical History History of colonoscopy History of esophagogastroduodenoscopy (EGD) History of lung surgery STENT TO [id number]? History of prostate biopsy (01/01/22) History of vascular access device PORT PLACEMENT-UPPER LEFT IN PLACE S/P laparoscopic cholecystectomy Family History Mother Coronary heart disease Father , age 90 COPD (chronic obstructive pulmonary disease) Diabetes Aunt Cancer Uncle Diabetes Brother Hypertension Daughter No problems noted. Brother No problems noted. Other No family history of bleeding disorder Denies family history of Ovarian cancer Prostate cancer Breast cancer Colorectal cancer Social History Smoking Status: Former smoker packs per day: 1; Years Smoked: 37; Cigarettes Per Day: does smoke occ cigar when golfing; Second Hand Exposure: Yes; Hx Alcohol Use: No Hx Substance Use: No Preferred Language: Burundian Communication Ability: Effective Visual Impairment: No Limitations Hearing Ability: Normal Water Filtration Technician Required: No Beliefs That Will Affect Care: None marital status: Single marital status details: but has 1 daughter Current Living Situation: Alone Current Living Situation Comment: brother stays w/pt periodically current occupational status: employed and disabled 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 How many Children do You have: 1 Feels Safe at Home: Yes caffeine: Yes (iced tea) during the past year weight has: remained stable Dental Care, Regularly: No Assistive Devices: None Review of Systems A total of 10 systems reviewed and were otherwise negative All systems reviewed & are unremarkable except as noted in HPI & below Physical Exam Vital Signs Vital Signs - 24 hr 02/15/22 00:26 02/15/22 01:30 02/15/22 01:35 Temperature 35.6 C L Temperature Source Temporal Artery Scan Pulse Rate 104 H Pulse Rate [Apical] 98 H Respiratory Rate 26 H 18 Respiratory Effort / Characteristics Non-Labored Spontaneous Respiratory Depth Normal Blood Pressure 117/84 Blood Pressure [Left Arm] 119/69 Blood Pressure Mean 95 Blood Pressure Mean [Left Arm] 85 Pulse Oximetry 97 85 L 95 Oxygen Delivery Method Room Air Room Air Nasal Cannula Nasal Cannula Oxygen Flow Rate 2 Sepsis Recent Fever Within 48 Hours No Sepsis New/Unexplained Change in Mental Status No Sepsis Action Taken by Nursing No Action Required Oxygen Flow Rate - Titration 2 Pulse Oximetry Post Tiitration 95 02/15/22 02:10 02/15/22 04:00 02/15/22 04:41 Temperature Temperature Source Pulse Rate Pulse Rate [Apical] 93 H 98 H 95 H Respiratory Rate 18 18 18 Respiratory Effort / Characteristics Non-Labored Spontaneous Non-Labored Spontaneous Non-Labored Spontaneous Respiratory Depth Normal Normal Normal Blood Pressure Blood Pressure [Left Arm] 104/90 106/73 99/79 L Blood Pressure Mean Blood Pressure Mean [Left Arm] 94 84 85 Pulse Oximetry 98 96 90 Oxygen Delivery Method Nasal Cannula Nasal Cannula Nasal Cannula Oxygen Flow Rate 2 2 2 Sepsis Recent Fever Within 48 Hours Sepsis New/Unexplained Change in Mental Status Sepsis Action Taken by Nursing Oxygen Flow Rate - Titration Pulse Oximetry Post Tiitration 02/15/22 05:31 02/15/22 06:00 02/15/22 06:30 Temperature Temperature Source Pulse Rate Pulse Rate [Apical] 94 H 93 H 93 H Respiratory Rate 16 16 16 Respiratory Effort / Characteristics Non-Labored Spontaneous Non-Labored Spontaneous Non-Labored Spontaneous Respiratory Depth Normal Normal Normal Blood Pressure Blood Pressure [Left Arm] 96/73 L 99/71 L 109/65 Blood Pressure Mean Blood Pressure Mean [Left Arm] 80 80 79 Pulse Oximetry 98 96 95 Oxygen Delivery Method Nasal Cannula Nasal Cannula Nasal Cannula Oxygen Flow Rate 2 2 2 Sepsis Recent Fever Within 48 Hours Sepsis New/Unexplained Change in Mental Status Sepsis Action Taken by Nursing Oxygen Flow Rate - Titration Pulse Oximetry Post Tiitration GENERAL: alert, uncomfortable appearing, well nourished, no distress, non-toxic EYE EXAM: normal conjunctiva, PERRL and EOM's grossly intact OROPHARYNX: no exudate, no erythema, lips, buccal mucosa, and tongue normal and mucous membranes are moist NECK: supple, no nuchal rigidity, no adenopathy, non-tender LUNGS: Clear to auscultation. Normal chest wall mechanics, no w/r/r HEART: no murmurs, S1 normal and S2 normal ABDOMEN: abdomen soft, pain with palpation over the right flank, normo-active bowel sounds, no masses, no rebound or guarding. BACK: Back is symmetrical on inspection and there is no deformity, no midline tenderness, no CVA tenderness. SKIN: no rashes and no bruising UPPER EXTREMITIES: upper extremities are grossly normal. FROM, nml pulses b/l. LOWER EXTREMITIES: No pitting edema. FROM, nml pulses b/l. NEURO EXAM: Normal sensorium, cranial nerves II-XII grossly intact, normal spee ch, no gross weakness of arms, no gross weakness of legs. Gross sensation intact. Course Course 0211: States still having pain. We will add additional fentanyl. 0336: Patient still having pain, Dilaudid added. 0422: Vital signs stable, patient states pain is still 8/10, additional Dilaudid added. Administered Medications Sodium Chloride (Nss 1000ml) 1,000 mls @ 250 mls/hr IV .Q4H IMAN Stop: 03/17/22 00:59 Last Admin: 02/15/22 05:30 Dose: 250 mls/hr Documented by: [id number] Infusion: 02/15/22 05:27 Dose: 0 mls/hr Documented by: [id number] Admin: 02/15/22 01:18 Dose: 250 mls/hr Documented by: [id number] Discontinued Medications Fentanyl Citrate (Fentanyl Citrate 100 Mcg/2 Ml Vial) 50 mcg IV NOW STA Stop: 02/15/22 00:54 Last Admin: 02/15/22 01:19 Dose: 50 mcg Documented by: [id number] Fentanyl Citrate (Fentanyl Citrate 100 Mcg/2 Ml Vial) 50 mcg IV NOW STA Stop: 02/15/22 02:27 Last Admin: 02/15/22 02:30 Dose: 50 mcg Documented by: [id number] Hydromorphone HCl (Hydromorphone Inj 0.5 Mg/0.5 Ml Syr) 0.5 mg IV NOW STA Stop: 02/15/22 03:16 Last Admin: 02/15/22 03:21 Dose: 0.5 mg Documented by: [id number] Hydromorphone HCl (Hydromorphone Inj 0.5 Mg/0.5 Ml Syr) 0.5 mg IV NOW STA Stop: 02/15/22 04:29 Last Admin: 02/15/22 05:43 Dose: 0.5 mg Documented by: [id number] Acetaminophen (Ofirmev) 1,000 mg in 100 mls @ 400 mls/hr IV NOW STA Stop: 02/15/22 01:07 Last Infusion: 02/15/22 01:36 Dose: 0 mls/hr Documented by: [id number] Admin: 02/15/22 01:18 Dose: 400 mls/hr Documented by: [id number] Ketorolac Tromethamine (Ketorolac Tromethamine 15 Mg/Ml Vial) 10 mg IV NOW ONE Stop: 02/15/22 03:17 Last Admin: 02/15/22 03:21 Dose: 10 mg Documented by: [id number] Ondansetron HCl (Ondansetron Inj 2 Mg/Ml 2 Ml Vial) 4 mg IV NOW STA Stop: 02/15/22 01:12 Last Admin: 02/15/22 01:19 Dose: 4 mg Documented by: [id number] Oxycodone HCl (Oxycodone Hcl Ir 5 Mg Tab (Immediate Release)) 5 mg PO NOW STA Stop: 02/15/22 01:47 Last Admin: 02/15/22 01:53 Dose: 5 mg Documented by: [id number] Medical Decision Making Differential Diagnosis Differential diagnosis: Etiologies such as shingles, pyelonephritis/UTI, renal colic, appendicitis, diverticulitis, mesenteric ischemia, torsion, aortic pathology, infections, inflammatory bowel disease, bowel obstruction, PUD, biliary pathology, as well as others were entertained. Medical Records Attestation: I reviewed the patient's medical records. Home Medications Current Medication List: was personally reviewed by me Laboratory Data Attestation: I reviewed the patient's lab results. Result diagrams: 02/15/22 01:00 02/15/22 01:00 Lab Results 02/15/22 02/15/22 02/15/22 Range/Units 01:00 01:00 04:40 WBC 11.80 H (4.8-10.8) K/uL RBC 5.39 (4.7-6.1) M/uL Hgb 15.5 (14.0-18.0) g/dL Hct 48.2 (42-52) % MCV 89.4 (80-100) fL MCH 28.8 (25-34) pg MCHC 32.2 (32-36) g/dL RDW Std Deviation 50.9 H (36.4-46.3) fL RDW Coeff of Estela 15.5 H (11.5-14.5) % Plt Count 328 (130-400) K/uL MPV 9.4 (7.4-10.4) fL Sodium 141 (136-145) mmol/L Potassium 4.0 (3.5-5.1) mmol/L Chloride 104 (98-107) mmol/L Carbon Dioxide 25 (21-32) mmol/L Anion Gap 12 H (3-11) BUN 10 (6-23) mg/dl Creatinine 1.11 (0.6-1.4) mg/dl Est Cr Clr Drug Dosing 79.0 ml/min Est GFR ( Amer) 82.6 ml/min Est GFR (Non-Af Amer) 71.3 ml/min BUN/Creatinine Ratio 9.0 L (10-20) Glucose 149 H (70-99(Fasting)) mg/dl Calcium 9.6 (8.5-10.1) mg/dl SARS-CoV-2, RNA, NAAT NEGATIVE (NEGATIVE) MDM Narrative An order was placed for continuous cardiac monitoring. The monitor shows a rate of _90_ with normal sinus__ rhythm. This is a 61-year-old male who presents due to concern for right-sided flank and abdominal pain. Patient previously seen and evaluated for hematuria here earlier in the evening. Patient was noted at that time on CT imaging to have a 3 mm distal ureteral stone on the right. Patient now with pain that did not improve to oxycodone that he has at home. Patient does have other significant past medical history including a prior history of hematuria secondary to pros espinosa cancer. Labs drawn and sent were reassuring, no evidence of GUY or significant leukocytosis, patient was afebrile and hemodynamically stable. Patient given several rounds of fentanyl and then Dilaudid for pain. He was given IV fluids for hydration and Zofran for nausea. Given inability to safely control patient's pain and convert him back to his oral medications, case discussed with hospitalist for additional inpatient management of his pain related to his renal colic. At this time I do not suspect ascending UTI. Impression & Plan Acute right flank pain, Hematuria, Ureterolithiasis, Hyperglycemia Discharge Plan Visit Data Chief Complaint: Pain (Generalized) Stated Complaint: PAIN ED Provider: Bernice Canchola Discharge Problem: Acute right flank pain, Hematuria, Ureterolithiasis, Hyperglycemia Forms Stand Alone Forms: My [facility] [employer] Prescriptions Prescriptions: No Action tamsulosin 0.4 mg capsule 0.4 mg PO BIDWMEAL Qty: 180 RF: 2 (DME) OneTouch Verio test strips Strip See Rx Instructions .Route Qty: 100 RF: 3 (DME) lancets [OneTouch Delica Lancets] 30 gauge misc See Rx Instructions .Route Qty: 100 RF: 3 dextromethorphan-guaifenesin 10-100 mg/5 mL liquid 10 ml PO Q6H PRN (Reason: cough) Qty: 237 RF: 0 duloxetine 60 mg capsule,delayed release(DR/EC) 60 mg PO DAILY 90 Days Qty: 90 RF: 1 atorvastatin 80 mg tablet 80 mg PO DAILY Qty: 90 RF: 3 omeprazole 40 mg capsule,delayed release(DR/EC) 40 mg PO DAILY Qty: 90 RF: 3 prednisone 10 mg tablet 10 mg PO DAILY Qty: 90 RF: 3 Hold Instructions: Untill Seen by PCP metoprolol succinate 50 mg tablet extended release 24 hr 50 mg PO DAILY Qty: 90 RF: 3 gabapentin 600 mg tablet 600 mg PO TID 30 Days Qty: 90 RF: 5 albuterol sulfate 90 mcg/actuation HFA aerosol inhaler 2 puff inhalation Q6H PRN (Reason: Shortness Of Breath Or Wheezing) Qty: 18 RF: 3 Breo Ellipta 100-25 mcg/dose blister with device 1 inh inhalation QAM Qty: 60 RF: 5 Incruse Ellipta 62.5 mcg/actuation blister with device 1 inh INH QPM Qty: 3 RF: 1 albuterol sulfate 2.5 mg /3 mL (0.083 %) solution for nebulization 2.5 mg inhalation Q4H PRN (Reason: COPD) Qty: 180 RF: 5 Daliresp 500 mcg tablet 500 mcg PO DAILY Qty: 90 RF: 1 ipratropium bromide 0.02 % solution 2.5 ml inhalation Q4H PRN (Reason: COPD) Qty: 180 RF: 5 metformin 500 mg tablet 500 mg PO BID Qty: 180 RF: 3 aspirin [Adult Low Dose Aspirin] 81 mg tablet,delayed release (DR/EC) 81 mg PO DAILY Qty: 90 RF: 3 cyanocobalamin (vitamin B-12) [Vitamin B-12] 2,000 mcg Tablet Extended Release 2,000 mcg PO DAILY RF: 0 cephalexin 500 mg capsule 500 mg PO BID RF: 0 azelastine 137 mcg (0.1 %) aerosol,spray 1 spray intranasal BID PRN (Reason: ALLERGIC RHINITIS) RF: 0 Referrals Referrals: Lillie Reinoso PA-C [Primary Care Provider] - Discharge Problem: Hematuria Qualifiers: Hematuria type: gross Qualified Code(s): R31.0 - Gross hematuria
[2022-02-15] MEDS: SODIUM CHLORIDE 0.9% 1000ML 1,000 ML IV SCH ×2 (01:18→05:30)
[2022-02-15 01:32] LABS: Calcium 9.6 mg/dl (8.5-10.1); Est GFR (African American) 82.6 ml/min; Est GFR (Non-African American) 71.3 ml/min
[2022-02-15] MEDS ORDERED: oxyCODONE HCL IR 5 MG TAB (IMMEDIATE RELEASE) PO STA (01:46)
[2022-02-15] MEDS ORDERED: HYDROmorphone INJ 0.5 MG/0.5 ML SYR IV STA ×2 (03:15→04:28)
[2022-02-15] MEDS ORDERED: KETOROLAC TROMETHAMINE 15 MG/ML VIAL IV ONE (03:16)
--- NOTE | 2022-02-15 04:49 | History & Physical Report ---
Date of Service February 15, 2022 Assessment & Plan (1) Ureterolithiasis: Plan: 61 year old male w/ PMHx of prostate and lung cancers, CAD, HLD, DM2, anxiety, gerd, COPD (former smoker) who presents w/ intractable right flank pain 2/2 R ureteral stone. - mild leukocytosis 11.8 - pain control w/ morphine IV 2mg q3h. tylenol NSS 150/hr - per CT abd: A 3 mm stone within the distal right ureter resulting in mild right hydronephrosis. - continue home flomax BID - consulted urology - NPO - considered empiric abx but in absence of urinary sxs and limited UA (no bacteria, but >30 wbc, and unable to determine if leuks or nitrites because of hematuria), deferred at this time. (2) Acute right flank pain: Plan: - see above (3) Hematuria: Plan: - see above (4) Type 2 diabetes mellitus: Plan: - SSI + bolus (5) Presence of drug coated stent in left circumflex coronary artery: Plan: - continue home regimen. per patient, asa d/c'd by oncologist (6) Prostate cancer: Plan: - planning to start radiation therapy in a few wks. follows Dr. Brennan (7) History of lung cancer: Plan: - In remission since 2011 Plan: FEN/GI: NPO ppx: sq heparin code: full dispo: med tele History of Present Illness Chief Complaint: right flank pain Primary Care Provider: Lillie Reinoso PA-C 61 year old male w/ PMHx of prostate and lung cancers, CAD, HLD, DM2, anxiety, gerd, COPD (former smoker) who presents w/ intractable right flank pain. Pain 10/10->6/10. Pain at righ flank, general abd, and testicles. No hx similar symptoms. Denies prior symptomatic stones. Onset 3PM yesterday. He has dark red hematuria, new onset. No dysuria. -f/c, cp, denies new urinary symptoms. He has chronic dyspnea. He endorses mild vomiting. Patient was seen in the ED yesterday afternoon, went home, and represented to the ED. ED course: IV pain medications. Allergies Allergy/AdvReac Type Severity Reaction Status Date / Time No Known Allergies Allergy Verified 02/13/22 09:19 Home Medications Medication Instructions Recorded Confirmed Type cyanocobalamin (vitamin B-12) 2,000 mcg PO DAILY 05/14/20 02/15/22 History 2,000 mcg tablet,extended release (Vitamin B-12 ER) metformin 500 mg tablet 500 mg PO BID #180 tab 07/09/21 02/15/22 Rx blood sugar diagnostic (Oxanauch #100 ea 07/11/21 02/13/22 Rx Verio test strips) lancets 30 gauge (Oxanavenus Deloscar #100 ea 07/11/21 02/13/22 Rx Lancets) aspirin 81 mg tablet,delayed 81 mg PO DAILY #90 tab 08/15/21 02/15/22 Rx release (Adult Low Dose Aspirin) dextromethorphan-guaifenesin 10 10 ml PO Q6H PRN #237 ml 09/09/21 02/15/22 Rx mg-100 mg/5 mL oral liquid gabapentin 600 mg tablet 600 mg PO TID 30 Days #90 tab 09/19/21 02/15/22 Rx azelastine 137 mcg (0.1 %) nasal 1 spray INTRANASAL BID PRN 12/18/21 02/15/22 History spray aerosol duloxetine 60 mg capsule,delayed 60 mg PO DAILY 90 Days #90 cap 01/06/22 02/15/22 Rx release albuterol sulfate 2.5 mg INHALATION Q4H PRN #180 ml 01/10/22 02/15/22 Rx albuterol sulfate 90 mcg/actuation 2 puff INHALATION Q6H PRN #18 g 01/10/22 02/15/22 Rx aerosol inhaler fluticasone furoate 100 1 inh INHALATION QAM #60 ea 01/10/22 02/15/22 Rx mcg-vilanterol 25 mcg/dose inhalation powder (Breo Ellipta) ipratropium bromide 0.02 % 2.5 ml INHALATION Q4H PRN #180 ml 01/10/22 02/15/22 Rx solution for inhalation roflumilast 500 mcg tablet 500 mcg PO DAILY #90 tab 01/10/22 02/15/22 Rx (Daliresp) umeclidinium 62.5 mcg/actuation 1 inh INH QPM #3 inhaler 01/10/22 02/15/22 Rx blister powder for inhalation (Incruse Ellipta) tamsulosin 0.4 mg capsule 0.4 mg PO BIDWMEAL #180 cap 01/23/22 02/15/22 Rx atorvastatin 80 mg tablet 80 mg PO DAILY #90 tab 01/28/22 02/15/22 Rx omeprazole 40 mg capsule,delayed 40 mg PO DAILY #90 cap 01/28/22 02/15/22 Rx release prednisone 10 mg tablet 10 mg PO DAILY #90 tab 01/28/22 02/15/22 Rx metoprolol succinate 50 mg 50 mg PO DAILY #90 tab 02/10/22 02/15/22 Rx tablet,extended release 24 hr cephalexin 500 mg capsule 500 mg PO BID 02/15/22 02/15/22 History Past Med/Surg History Medical History Anxiety Asthma Avascular necrosis of bones of both hips BPH with elevated PSA CAD (coronary artery disease) Chest pain Constipation Depression Dyslipidemia, goal LDL below 70 GERD (gastroesophageal reflux disease) H/O pneumothorax History of lung cancer (2011) DX 2011-LEFT LOBE/NO SURGERY/RADIATION/CHEMO History of pulmonary embolus (PE) 2017-NO ISSUES SINCE Hypertension NO MEDS Kidney stone on right side Neuropathy Non-small cell lung cancer (03/06/12) Presence of drug coated stent in left circumflex coronary artery (01/2021) Prostate cancer Severe chronic obstructive pulmonary disease Sinus tachycardia SOB (shortness of breath) on exertion STEMI (ST elevation myocardial infarction) (01/2021) Stomach ulcer HX -UNDER CONTROL Tobacco use disorder Type 2 diabetes mellitus Vitamin B12 deficiency Surgical History History of colonoscopy History of esophagogastroduodenoscopy (EGD) History of lung surgery STENT TO [id number]? History of prostate biopsy (01/01/22) History of vascular access device PORT PLACEMENT-UPPER LEFT IN PLACE S/P laparoscopic cholecystectomy Family History Mother Coronary heart disease Father , age 90 COPD (chronic obstructive pulmonary disease) Diabetes Aunt Cancer Uncle Diabetes Brother Hypertension Daughter No problems noted. Brother No problems noted. Other No family history of bleeding disorder Denies family history of Ovarian cancer Prostate cancer Breast cancer Colorectal cancer Social History Smoking Status: Former smoker packs per day: 1; Years Smoked: 37; Cigarettes Per Day: does smoke occ cigar when golfing; Second Hand Exposure: No; Do You Dip or Chew Tobacco: No; Tobacco Cessation Education Requested by Patient: No Hx Alcohol Use: No Hx Substance Use: No Preferred Language: Estonian Communication Ability: Effective Visual Impairment: No Limitations Hearing Ability: Normal Log Scaler Required: No Beliefs That Will Affect Care: None marital status: Single marital status details: but has 1 daughter Current Living Situation: Alone Current Living Situation Comment: brother stays w/pt periodically current occupational status: employed and disabled current occupation: 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 NAD. Cooperative. HEENT: Atraumatic, normocephalic. EOMI Pulm: CTAB. -wheezes, -rales, -rhonchi. No respiratory distress. Cardiac: RRR, -mrg. Radial pulses intact and symmetrical. No LE edema. Abdominal: R and mid abd ttp, worse at r flank. + voluntary guarding. Msk: Moving all extrem. Results & Data Results & Data ([facility]) Vital Signs (Past 12 Hours) Vital Signs Temp Pulse Pulse Resp BP BP Pulse Ox 02/15/22 04:41 95 H 18 99/79 L 90 02/15/22 04:00 98 H 18 106/73 96 02/15/22 02:10 93 H 18 104/90 98 02/15/22 01:35 98 H 18 119/69 95 02/15/22 01:30 85 L 02/15/22 00:26 35.6 C L 104 H 26 H 117/84 97 Laboratory Results CBC 02/15/22 Range/Units 01:00 WBC 11.80 H (4.8-10.8) K/uL RBC 5.39 (4.7-6.1) M/uL Hgb 15.5 (14.0-18.0) g/dL Hct 48.2 (42-52) % Plt Count 328 (130-400) K/uL Comprehensive Metabolic Panel 02/15/22 Range/Units 01:00 Sodium 141 (136-145) mmol/L Potassium 4.0 (3.5-5.1) mmol/L Chloride 104 (98-107) mmol/L Carbon Dioxide 25 (21-32) mmol/L BUN 10 (6-23) mg/dl Creatinine 1.11 (0.6-1.4) mg/dl Glucose 149 H (70-99(Fasting)) mg/dl Calcium 9.6 (8.5-10.1) mg/dl Intake and Output 02/14/22 02/14/22 02/15/22 14:59 22:59 06:59 Intake Total 100 / 100 Balance 100 / 100 Intake: IV 100 / 100 Acetaminophen 1,000 mg In 100 100 / 100 ml @ 400 mls/hr IV NOW STA Rx#: [id number] Other: Weight 80.9 kg Weight Measurement Method Chair Scale Patient Weight 02/15/22 06:59 Weight 80.9 kg Diagnostic Findings CBC 02/15/22 Range/Units 01:00 WBC 11.80 H (4.8-10.8) K/uL RBC 5.39 (4.7-6.1) M/uL Hgb 15.5 (14.0-18.0) g/dL Hct 48.2 (42-52) % Plt Count 328 (130-400) K/uL Comprehensive Metabolic Panel 02/15/22 Range/Units 01:00 Sodium 141 (136-145) mmol/L Potassium 4.0 (3.5-5.1) mmol/L Chloride 104 (98-107) mmol/L Carbon Dioxide 25 (21-32) mmol/L BUN 10 (6-23) mg/dl Creatinine 1.11 (0.6-1.4) mg/dl Glucose 149 H (70-99(Fasting)) mg/dl Calcium 9.6 (8.5-10.1) mg/dl Intake and Output 02/14/22 02/15/22 02/15/22 22:59 06:59 14:59 Intake Total 1100 / 1100 Balance 1100 / 1100 Intake: IV 1100 / 1100 Acetaminophen 1,000 mg In 100 100 / 100 ml @ 400 mls/hr IV NOW STA Rx#: [id number] Sodium Chloride 0.9% 1000ML 1, 1000 / 1000 000 ml @ 250 mls/hr IV .Q4H [facility] Rx#:[id number] Other: Weight 80.9 kg Weight Measurement Method Chair Scale IMPRESSION: 1. A 3 mm stone within the distal right ureter resulting in mild right hydronephrosis. 2. Stable right-sided nephrolithiasis. 3. No bowel wall thickening or obstruction. 4. Prior cholecystectomy. 5. Normal appendix. 6. Emphysema. Code Status & VTE Plan Code Status full VTE Prophylaxis Plan VTE Prophylaxis will be ordered: Yes Supervising Physician Co-Signing Physician Notes Attending addendum: I have physically seen this patient, have supervised the medical residents activities, and agree with the H&P unless as otherwise noted. Assessment and Plan: 3 mm distal right ureteral stone/mild right hydroureteronephrosis- N.p.o. after midnight Ceftriaxone 2 g IV daily Follow urine culture sensitivity Continue Flomax twice daily Urology consulted Acetaminophen 650 mg p.o. every 6 hours as needed mild pain or fever Morphine sulfate 2 mg IV every 3 hours as needed moderate to severe pain NSS 150 mils per hour Remaining orders and notations as noted Resident Activity Tracking Resident Involvement: Resident Care Provided Care Provided: Adult Hospital Medicine (1) Hematuria Hematuria type: gross Qualified Code(s): R31.0 - Gross hematuria
[2022-02-15] MEDS ORDERED: MoRPHine SULFATE 2 MG/ML CARP IV PRN (08:24)
[2022-02-15] MEDS ORDERED: ALBUT/IPRATROP 3MG/0.5MG NEB 3 ML VIAL NEB PRN (08:24)
[2022-02-15] MEDS ORDERED: ACETAMINOPHEN 325 MG TAB PO PRN (08:24)
[2022-02-15] MEDS ORDERED: predniSONE 10 MG TABLET PO SCH (09:00)
[2022-02-15] MEDS ORDERED: METOPROLOL SUCC 50MG EXT REL TAB PO SCH (09:00)
[2022-02-15] MEDS: ATORVASTATIN 40 MG TAB PO SCH (09:35)
[2022-02-15] MEDS: GABAPENTIN 600 MG TAB PO SCH ×3 (09:35→20:49)
[2022-02-15] MEDS: ROFLUMILAST 500 MCG TAB PO SCH (09:35)
[2022-02-15] MEDS: TAMSULOSIN HCL 0.4 MG CAP PO SCH ×2 (09:35→18:06)
[2022-02-15] MEDS: DULoxetine HCL 60 MG CAP PO SCH (09:35)
[2022-02-15] MEDS: PANTOprazole 40 MG TAB PO SCH (09:36)
[2022-02-15] MEDS: HEPARIN SOD 5,000 UNIT/0.5 ML VIAL SQ SCH ×2 (09:36→23:57)
[2022-02-15] MEDS ORDERED: PROPOFOL IV EMULSION 10 MG/ML 20 ML VIAL IV ONE (13:33)
[2022-02-15] MEDS ORDERED: fentaNYL citrate 100 MCG/2 ML VIAL ONE (13:33)
[2022-02-15] MEDS ORDERED: MIDAZOLAM HCL 1 MG/ML 2ML VIAL ONE ×2 (13:33→15:04)
--- NOTE | 2022-02-15 13:39 | Anesthesiology Consultation ---
Date of Service February 15, 2022 Assessment & Plan Chart Review Chart Review: Acceptable Risk for Surgery and Patient NOT seen in Pre Admission Testing Consults Requested none ASA ASA4 Proposed Anesthesia Anesthesia Type: General History Surgery Operation Date: 02/15/22 12:30 Proposed Procedures p Cystoscopy, Retrograde, Right Ureteral Stent Insertion - Myles López, Height/Weight Height: 6 ft 1 in Weight: 81.3 kg Allergies Allergy/AdvReac Type Severity Reaction Status Date / Time No Known Allergies Allergy Verified 02/13/22 09:19 Medications Home Medications Medication Instructions Recorded Confirmed Last Taken cyanocobalamin (vitamin B-12) 2,000 mcg PO DAILY 05/14/20 02/15/22 12/18/21 2,000 mcg tablet,extended release (Vitamin B-12 ER) metformin 500 mg tablet 500 mg PO BID #180 tab 07/09/21 02/15/22 12/18/21 08:00 blood sugar diagnostic (HITbillsTouch #100 ea 07/11/21 02/13/22 Unknown Verio test strips) lancets 30 gauge (HITbillsTouch Delica #100 ea 07/11/21 02/13/22 Unknown Lancets) aspirin 81 mg tablet,delayed 81 mg PO DAILY #90 tab 08/15/21 02/15/22 12/18/21 release (Adult Low Dose Aspirin) dextromethorphan-guaifenesin 10 10 ml PO Q6H PRN #237 ml 09/09/21 02/15/22 Unknown mg-100 mg/5 mL oral liquid gabapentin 600 mg tablet 600 mg PO TID 30 Days #90 tab 09/19/21 02/15/22 12/18/21 14:00 azelastine 137 mcg (0.1 %) nasal 1 spray INTRANASAL BID PRN 12/18/21 02/15/22 Unknown spray aerosol duloxetine 60 mg capsule,delayed 60 mg PO DAILY 90 Days #90 cap 01/06/22 02/15/22 Unknown release albuterol sulfate 2.5 mg INHALATION Q4H PRN #180 ml 01/10/22 02/15/22 Unknown albuterol sulfate 90 mcg/actuation 2 puff INHALATION Q6H PRN #18 g 01/10/22 02/15/22 Unknown aerosol inhaler fluticasone furoate 100 1 inh INHALATION QAM #60 ea 01/10/22 02/15/22 Unknown mcg-vilanterol 25 mcg/dose inhalation powder (Breo Ellipta) ipratropium bromide 0.02 % 2.5 ml INHALATION Q4H PRN #180 ml 01/10/22 02/15/22 Unknown solution for inhalation roflumilast 500 mcg tablet 500 mcg PO DAILY #90 tab 01/10/22 02/15/22 Unknown (Daliresp) umeclidinium 62.5 mcg/actuation 1 inh INH QPM #3 inhaler 01/10/22 02/15/22 Unknown blister powder for inhalation (Incruse Ellipta) tamsulosin 0.4 mg capsule 0.4 mg PO BIDWMEAL #180 cap 01/23/22 02/15/22 Unknown atorvastatin 80 mg tablet 80 mg PO DAILY #90 tab 01/28/22 02/15/22 Unknown omeprazole 40 mg capsule,delayed 40 mg PO DAILY #90 cap 01/28/22 02/15/22 Unknown release prednisone 10 mg tablet 10 mg PO DAILY #90 tab 01/28/22 02/15/22 Unknown metoprolol succinate 50 mg 50 mg PO DAILY #90 tab 02/10/22 02/15/22 Unknown tablet,extended release 24 hr cephalexin 500 mg capsule 500 mg PO BID 02/15/22 02/15/22 Unknown Active Medications Generic Name Dose Route Start Last Admin Trade Name Freq PRN Reason Stop Dose Admin Atorvastatin Calcium 80 mg 02/15/22 09:00 02/15/22 09:35 Atorvastatin 40 Mg Tab PO 03/17/22 08:59 80 mg DAILY IMAN Administration Duloxetine HCl 60 mg 02/15/22 09:00 02/15/22 09:35 Duloxetine Hcl 60 Mg Cap PO 03/17/22 08:59 60 mg DAILY IMAN Administration Gabapentin 600 mg 02/15/22 09:00 02/15/22 09:35 Gabapentin 600 Mg Tab PO 03/17/22 08:59 600 mg TID IMAN Administration Heparin Sodium (Porcine) 5,000 units 02/15/22 12:00 02/15/22 09:36 Heparin Sod 5,000 Unit/0.5 Ml Vial SQ 03/17/22 11:59 Not Given Q12H IMAN Metoprolol Succinate 50 mg 02/15/22 09:00 02/15/22 09:35 Metoprolol Succ 50mg Ext Rel Tab PO 03/17/22 08:59 50 mg DAILY IMAN Administration Morphine Sulfate 2 mg 02/15/22 08:24 02/15/22 09:34 Morphine Sulfate 2 Mg/Ml Carp IV 03/01/22 08:23 2 mg Q3H PRN Administration Chest Pain Pantoprazole Sodium 40 mg 02/15/22 09:00 02/15/22 09:36 Pantoprazole 40 Mg Tab PO 03/17/22 08:59 40 mg DAILY IMAN Administration Prednisone 10 mg 02/15/22 09:00 02/15/22 09:35 Prednisone 10 Mg Tablet PO 03/17/22 08:59 10 mg DAILY IMAN Administration Roflumilast 500 mcg 02/15/22 09:00 02/15/22 09:35 Roflumilast 500 Mcg Tab PO 03/17/22 08:59 500 mcg DAILY IMAN Administration Tamsulosin HCl 0.4 mg 02/15/22 08:24 02/15/22 09:35 Tamsulosin Hcl 0.4 Mg Cap PO 03/17/22 08:23 0.4 mg BIDM IMAN Administration Past Medical History Medical History Anxiety Asthma Avascular necrosis of bones of both hips BPH with elevated PSA CAD (coronary artery disease) Chest pain Constipation Depression Dyslipidemia, goal LDL below 70 GERD (gastroesophageal reflux disease) H/O pneumothorax History of lung cancer (2011) DX 2011-LEFT LOBE/NO SURGERY/RADIATION/CHEMO History of pulmonary embolus (PE) 2017-NO ISSUES SINCE Hypertension NO MEDS Kidney stone on right side Neuropathy Non-small cell lung cancer (03/06/12) Presence of drug coated stent in left circumflex coronary artery (01/2021) Prostate cancer Severe chronic obstructive pulmonary disease Sinus tachycardia SOB (shortness of breath) on exertion STEMI (ST elevation myocardial infarction) (01/2021) Stomach ulcer HX -UNDER CONTROL Tobacco use disorder Type 2 diabetes mellitus Vitamin B12 deficiency Exercise / Class Metabolic Activity III < 4 Walking/Shop/Light housework Past Family History Family History Mother Coronary heart disease Father , age 90 COPD (chronic obstructive pulmonary disease) Diabetes Aunt Cancer Uncle Diabetes Brother Hypertension Daughter No problems noted. Brother No problems noted. Other No family history of bleeding disorder Denies family history of Ovarian cancer Prostate cancer Breast cancer Colorectal cancer Past Surgical History Surgical History History of colonoscopy History of esophagogastroduodenoscopy (EGD) History of lung surgery STENT TO [id number]? History of prostate biopsy (01/01/22) History of vascular access device PORT PLACEMENT-UPPER LEFT IN PLACE S/P laparoscopic cholecystectomy Past Anesthesia History No Hx of Anesthesia Complications and No Family Hx of Anesthesia Complications History of PONV No Hx of PONV and No Hx of Motion Sickness Social History Smoking Status: Former smoker tobacco type: cigarettes Smoking cigarettes per day: does smoke occ cigar when golfing Do You Dip or Chew Tobacco: No Hx Alcohol Use: No Hx Substance Use: No substance use type: does not use Physical Exam Vital Signs Last Vital Signs Temp 36.7 C 02/15/22 11:30 Pulse 95 H 02/15/22 11:30 Resp 18 02/15/22 11:30 BP 98/63 L 02/15/22 11:30 Pulse Ox 91 02/15/22 11:30 Testing Laboratory Results 02/15/22 01:00 02/15/22 01:00 Electrocardiogram Date: 12/18/21 Findings: + NSR @ (at 96) Chest X-Ray Date: 12/18/21 severe emphysema Echocardiogram Date: 01/16/21 EF: 50% LV Function: normal RWMA: + hypokinetic (posterior and lateral wall) Cardiac Catheterization Date: 01/15/21 Findings: + LCX (100%) Intervention: + YARA placed (left mid CX)
--- NOTE | 2022-02-15 13:58 | Urology Consultation ---
Date of Consultation February 15, 2022 Assessment & Plan (1) Kidney stone: (2) Hematuria: Acute illness with possible sepsis with hypotension and tachycardia. 3 mm obstructing stone with multiple right sided stones. Known patient of Dr. Brennan with plans to start XRT for Prostate Cancer. No family history of prostate cancer. Discussed options for conservative measure and maximum expulsion medical therapy and symptom controlled. Discussed ESWL. Discussed Ureteroscopy with extraction and/or laser lithotripsy. Risks and benefits were discussed. Stone free rates were also discussed as well as possibility of multiple procedures. Ureteral stents were discussed as well as post-operative issues and pain management. All questions were answered. Imaging reviewed and interpretted by myself. Obstructing stone. Hydration and antibiotics with close monitoring on Telemetry. Discussed possible need for urgent stent with development of SIRS. Risks and benefits discussed at length for procedure. These include bleeding, infection, injury to surrounding tissues or organs, and risks associated with anesthesia. Numerous comorbidities with pulm and cardiac issues. Patient states understanding and agrees to proceed. Will sign consent and proceed with cystoscopy and possible stent placement. on right History of Present Illness Attending Physician: Kemar Pak MD History of Present Illness New consultation for Patient of Dr. Brennan with Prostate Cancer. Presented to ER acutely ill with UTI/Pyelo, discomfort, and ill feelings. Patient developed sudden onset of pain into flank going down and radiating into groin and back in waves comes and goes. Can be severe at times. Has been Hypotensive, Hypothermic, and Tachycardic. Concern for early sepsis. Discussed and reviewed patient's personal medical, surgical, social, and family history for any history of issues, infections, and disease. Also, discussed patient's medical/surgery history especially related to any history of urinary issues or stone disease. Patient is undergoing management for acute illness and is being admitted to undergo supportive care with hydration and antibiotics. Hospitalist team has admitted and is undergoing observation with broad spectrum IV antibiotics. Allergies Allergy/AdvReac Type Severity Reaction Status Date / Time No Known Allergies Allergy Verified 02/13/22 09:19 Home Medications Medication Instructions Recorded Confirmed Type cyanocobalamin (vitamin B-12) 2,000 mcg PO DAILY 05/14/20 02/15/22 History 2,000 mcg tablet,extended release (Vitamin B-12 ER) metformin 500 mg tablet 500 mg PO BID #180 tab 07/09/21 02/15/22 Rx blood sugar diagnostic (Kiranuch #100 ea 07/11/21 02/13/22 Rx Verio test strips) lancets 30 gauge (Tom Deloscar #100 ea 07/11/21 02/13/22 Rx Lancets) aspirin 81 mg tablet,delayed 81 mg PO DAILY #90 tab 08/15/21 02/15/22 Rx release (Adult Low Dose Aspirin) dextromethorphan-guaifenesin 10 10 ml PO Q6H PRN #237 ml 09/09/21 02/15/22 Rx mg-100 mg/5 mL oral liquid gabapentin 600 mg tablet 600 mg PO TID 30 Days #90 tab 09/19/21 02/15/22 Rx azelastine 137 mcg (0.1 %) nasal 1 spray INTRANASAL BID PRN 12/18/21 02/15/22 History spray aerosol duloxetine 60 mg capsule,delayed 60 mg PO DAILY 90 Days #90 cap 01/06/22 02/15/22 Rx release albuterol sulfate 2.5 mg INHALATION Q4H PRN #180 ml 01/10/22 02/15/22 Rx albuterol sulfate 90 mcg/actuation 2 puff INHALATION Q6H PRN #18 g 01/10/22 02/15/22 Rx aerosol inhaler fluticasone furoate 100 1 inh INHALATION QAM #60 ea 01/10/22 02/15/22 Rx mcg-vilanterol 25 mcg/dose inhalation powder (Breo Ellipta) ipratropium bromide 0.02 % 2.5 ml INHALATION Q4H PRN #180 ml 01/10/22 02/15/22 Rx solution for inhalation roflumilast 500 mcg tablet 500 mcg PO DAILY #90 tab 01/10/22 02/15/22 Rx (Daliresp) umeclidinium 62.5 mcg/actuation 1 inh INH QPM #3 inhaler 01/10/22 02/15/22 Rx blister powder for inhalation (Incruse Ellipta) tamsulosin 0.4 mg capsule 0.4 mg PO BIDWMEAL #180 cap 01/23/22 02/15/22 Rx atorvastatin 80 mg tablet 80 mg PO DAILY #90 tab 01/28/22 02/15/22 Rx omeprazole 40 mg capsule,delayed 40 mg PO DAILY #90 cap 01/28/22 02/15/22 Rx release prednisone 10 mg tablet 10 mg PO DAILY #90 tab 01/28/22 02/15/22 Rx metoprolol succinate 50 mg 50 mg PO DAILY #90 tab 02/10/22 02/15/22 Rx tablet,extended release 24 hr cephalexin 500 mg capsule 500 mg PO BID 02/15/22 02/15/22 History Patient History Medical History Anxiety Asthma Avascular necrosis of bones of both hips BPH with elevated PSA CAD (coronary artery disease) Chest pain Constipation Depression Dyslipidemia, goal LDL below 70 GERD (gastroesophageal reflux disease) H/O pneumothorax History of lung cancer (2011) DX 2011-LEFT LOBE/NO SURGERY/RADIATION/CHEMO History of pulmonary embolus (PE) 2017-NO ISSUES SINCE Hypertension NO MEDS Kidney stone on right side Neuropathy Non-small cell lung cancer (03/06/12) Presence of drug coated stent in left circumflex coronary artery (01/2021) Prostate cancer Severe chronic obstructive pulmonary disease Sinus tachycardia SOB (shortness of breath) on exertion STEMI (ST elevation myocardial infarction) (01/2021) Stomach ulcer HX -UNDER CONTROL Tobacco use disorder Type 2 diabetes mellitus Vitamin B12 deficiency Surgical History History of colonoscopy History of esophagogastroduodenoscopy (EGD) History of lung surgery STENT TO [id number]? History of prostate biopsy (01/01/22) History of vascular access device PORT PLACEMENT-UPPER LEFT IN PLACE S/P laparoscopic cholecystectomy Family History Mother Coronary heart disease Father , age 90 COPD (chronic obstructive pulmonary disease) Diabetes Aunt Cancer Uncle Diabetes Brother Hypertension Daughter No problems noted. Brother No problems noted. Other No family history of bleeding disorder Denies family history of Ovarian cancer Prostate cancer Breast cancer Colorectal cancer Social History Smoking Status: Former smoker packs per day: 1; Years Smoked: 37; Cigarettes Per Day: does smoke occ cigar when golfing; Second Hand Exposure: No; Do You Dip or Chew Tobacco: No; Tobacco Cessation Education Requested by Patient: No Hx Alcohol Use: No Hx Substance Use: No Preferred Language: Guinean Communication Ability: Effective Visual Impairment: No Limitations Hearing Ability: Normal Greenskeeper Required: No Beliefs That Will Affect Care: None marital status: Single marital status details: but has 1 daughter Current Living Situation: Alone Current Living Situation Comment: brother stays w/pt periodically current occupational status: employed and disabled current occupation: 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 Undergoing critical care management for acute severe infection HEENT: Normocephalic Atraumatic. Inspection normal. Cranial Nerves 2-12 Grossly intact. Nares are clear. Neck is supple. Normal inspection of face. Normal inspection of neck. Neurologic: No deficits on inspection. Baseline for motor function and sensory. Psychologic: Anxious, acute delirium secondary to illness Respiratory: Mild labored. No use of accessory muscles. No severe dyspnea. Cardiovascular: tachycardia Skin: [place] and Dry. No rashes or visible lesions. Febrile Extremities: Moving without issues. No motor deficits on inspection Lymphatics: Mild edema Abdomen: Mildly distended. No rebound or guarding. Mild suprapubic/flank tenderness Results & Data ([facility]) Vital Signs (Past 12 Hours) Vital Signs Temp Pulse Pulse Resp BP Pulse Ox 02/15/22 11:30 36.7 C 95 H 18 98/63 L 91 02/15/22 09:44 110 H 02/15/22 08:25 36.4 C L 93 H 16 106/70 98 02/15/22 06:30 93 H 16 109/65 95 02/15/22 06:00 93 H 16 99/71 L 96 02/15/22 05:31 94 H 16 96/73 L 98 02/15/22 04:41 95 H 18 99/79 L 90 02/15/22 04:00 98 H 18 106/73 96 02/15/22 02:10 93 H 18 104/90 98 PG Care Time/CCT Total # of Minutes Spent Total Time Spent with Patient: Total time spent is greater than 50% in coordination of care (as documented) at patient's floor/unit and/or counseling patient: Coding Level of Care Code 96594 Inpt Consult Level 5 Diagnoses Kidney stone N20.0 Hematuria R31.0 Hematuria type: gross (1) Hematuria Hematuria type: gross Qualified Code(s): R31.0 - Gross hematuria
[2022-02-15] MEDS ORDERED: FLUMAZENIL 0.1 MG/1 ML 10 ML VIAL IV PRN (14:12)
[2022-02-15] MEDS ORDERED: NALOXONE HCL 0.4 MG/1 ML VIAL/CARP IV PRN (14:12)
[2022-02-15] MEDS ORDERED: ePHEDrine sulfate 50 MG/ML AMP IV PRN (14:12)
[2022-02-15] MEDS ORDERED: LABETALOL HCL IV 5 MG/ML 20ML IV PRN (14:12)
[2022-02-15] MEDS ORDERED: PROMETHAZINE HCL 12.5 MG in SODIUM CHLORIDE 0.9% 50 ML IV PRN (14:12)
[2022-02-15] MEDS ORDERED: ONDANSETRON INJ 2 MG/ML 2 ML VIAL IV PRN (14:12)
[2022-02-15] MEDS ORDERED: ATROPINE SULFATE 0.1 MG/ML 10ML SYR IV PRN (14:12)
[2022-02-15] MEDS ORDERED: fentaNYL citrate 100 MCG/2 ML VIAL IV PRN (14:12)
[2022-02-15] MEDS ORDERED: VANCOMYCIN CONSULT ACTIVE PRN (14:30)
--- NOTE | 2022-02-15 14:48 | Hospitalist Progress Note ---
Date of Service February 15, 2022 Assessment & Plan (1) Kidney stone: (2) Hematuria: (3) Ureterolithiasis: Plan: 61 year old male w/ PMHx of prostate and lung cancers, CAD, HLD, DM2, anxiety, gerd, COPD (former smoker) who presents w/ intractable right flank pain 2/2 R u reteral stone. Is taken for cystoscopy and stent placement, hypotensive and tachycardic following procedure Sepsis, hypotension/tachycardia following cystoscopy for urolithiasis - On admit in absence of urinary sxs and limited UA (no bacteria, but >30 wbc, and unable to determine if leuks or nitrites because of hematuria) abx were deferred AM 02/15 Hypotensive, tachycardic, afebrile Status post right cystoscopy and stent placement Ceftriaxone/vancomycin empiric ordered Follow UA/UC for cultures and narrow as appropriate TTE 01/16/2021: EF 50-55%. Lateral wall motion abnormality Post anesthesia patient recommended for 6 to 8 L of tidal volume, PPV if LMA/tube required. Seen at recovery, is breathing well at his baseline and recovering well. PPV ordered nightly as needed. Given chronic steroid requirement stress dose for sepsis/procedures COPD Gold D COPD Takes Incruse and Breo ARTIST MANNEQUIN COLORING, does use nebulizer frequently Continue azithromycin 3 times weekly Patient has continued prednisone 10 mg daily, per pulmonary had strongly recommended trying to taper this and discontinue due to no benefit for chronic COPD however patient had not been able to do this. Patient has been following up with [facility] lung transplant program. He reports that he is currently undergoing regular follow-up while awaiting his lung volumes to fall within recommendation for transplant, at this time he is having scheduled follow-up with no scheduled intervention. PFT 01/2022: Severe COPD, FVC 64%, FEV1 40%, FEV1/FVC 47%, TLC 93%, DLCO 34% Multiple pulmonary nodules on CT/CTA scheduled for repeat CT chest in 02/2023 [id number] history, stopped smoking 2019 History of STEMI with PCI YARA placement 01/2021 Former tobacco use, quit in 2019 Patient was previously on aspirin monotherapy, reportedly was advised to stop this by his oncologist. Per 02/23/2022 cardiology note review this is only being held prior to seed implantation, but should be restarted as soon as possible. He is more than 1 year out from original stenting. We will continue to hold at this time. Metoprolol held for hypotension Last echo with EF 50% Continue statin Prostate cancer, Argenis 4 Pending radiation therapy/seed placement Continue outpatient follow-up, no acute inpatient intervention at this time Type 2 diabetes mellitus Hold home metformin Basal bolus goal 1001 40 Glargine SSI GERD Continue PPI, omeprazole concerted to Protonix DVT prophylaxis: Heparin CODE STATUS: Full code Disposition: Telemetry pending recovery (4) Acute right flank pain: Plan: - see above (5) Type 2 diabetes mellitus: Plan: As noted (6) Presence of drug coated stent in left circumflex coronary artery: Plan: As noted (7) Prostate cancer: Plan: - planning to start radiation therapy in a few wks. follows Dr. Brennan (8) History of lung cancer: Plan: - In remission since 2011 (9) Sepsis: (10) COPD, group D, by GOLD 2017 classification: (11) CAD (coronary artery disease): (12) Sepsis: (13) UTI (urinary tract infection): Admission and Anticipated Discharge Date Admission Date: February 15, 2022 Subjective Patient is seen at the bedside. Denies fever/chills/sweats at assessment. He does not feel lightheaded or dizzy. Denies pain/dysuria. Has had stent placed. Somnolent following cystoscopy. Patient reports his aspirin was stopped at the recommendation of his oncologist, is not sure when this was to be restarted. His machine welder had recommended starting it after prostate intervention, his oncologist would prefer to defer this for the time being. Denies chest pain, chest pressure, palpitations. No fevers time assessment. He feels he is breathing comfortably, notes he does have chronic shortness of breath and COPD with follow-up to [facility] but they are currently waiting for his lung function to diminish to meet indication for transplant. Review of Systems Review of Systems: All systems reviewed & are unremarkable except as noted in Subjective Physical Exam Physical Exam: General:Post procedure. Awakens easily, answers questions appropriately. Oriented to name and place. HEENT: Atraumatic, normocephalic. Vision and hearing grossly intact. Pulm: Moderate air movement, scattered end expiratory wheezes without rales/crackles symmetrical chest rise. No increase in work of breathing. No respiratory distress. Cardiac: RRR, -mrg. Radial pulses intact and symmetrical. Abdominal: Nontender, nondistended, soft. BS present. Results & Data Results & Data ([facility]) Vital Signs (Past 12 Hours) Vital Signs Temp Pulse Pulse Resp BP Pulse Ox 02/15/22 11:30 36.7 C 95 H 18 98/63 L 91 02/15/22 09:44 110 H 02/15/22 08:25 36.4 C L 93 H 16 106/70 98 02/15/22 06:30 93 H 16 109/65 95 02/15/22 06:00 93 H 16 99/71 L 96 02/15/22 05:31 94 H 16 96/73 L 98 02/15/22 04:41 95 H 18 99/79 L 90 02/15/22 04:00 98 H 18 106/73 96 PG Care Time/CCT Total # of Minutes Spent Total Time Spent with Patient: Total time spent is greater than 50% in coordination of care (as documented) at patient's floor/unit and/or counseling patient: Coding Level of Care Code 64879 Subseq Hosp Care Lvl 3 Diagnoses Kidney stone N20.0 Hematuria R31.0 Hematuria type: gross Ureterolithiasis N20.1 Acute right flank pain R10.9 Type 2 diabetes mellitus E11.9 Presence of drug coated stent in left circumflex coronary artery Z95.5 Prostate cancer C61 History of lung cancer Z85.118 Sepsis A41.9 COPD, group D, by GOLD 2017 classification J44.9 CAD (coronary artery disease) I25.10 Sepsis A41.9 UTI (urinary tract infection) N39.0 (1) Hematuria Hematuria type: gross Qualified Code(s): R31.0 - Gross hematuria
[2022-02-15] MEDS ORDERED: VANCOMYCIN HCL 1,750 MG in SODIUM CHLORIDE 0.9% 500 ML IV ONE (15:00)
--- NOTE | 2022-02-15 15:00 | Pharmacy Report ---
Pharmacy Vanc AUC Short Note - Date of Service February 15, 2022 - Assessment & Plan Assessment 61 year old male w/ PMHx of prostate and lung cancers, CAD, HLD, DM2, anxiety, gerd, COPD who presents w/ intractable right flank pain 2/2 R ureteral stone. Cystoscopy planned today, Day # 1 of antimicrobial therapy. Plan Vancomycin * AUC/JUVENTINO is the preferred PK/PD target for vancomycin * AUC guided dosing is effective and associated with decreased risk of nephrotoxicity compared to traditional trough targets * Will order load of vancomycin 1750 mg x 1 (~22 mg/kg/dose). Will start vancomycin 750 mg iv q 12 hrs * This dosing is estimated to achieve a trough of ~15 mcg/mL is predicted to achieve target AUC/JUVENTINO of 400-600 mg/L.hr * Will plan to order level if continued >48 hrs or sooner if renal function changes Pharmacy will continue to follow and will adjust dose/frequency as necessary. Thank you.
[2022-02-15] MEDS ORDERED: CIPROFLOXACIN / D5W 400 MG/200 ML BAG IV ONE (15:06)
[2022-02-15] MEDS ORDERED: CIPROFLOXACIN 400MG / 200ML D5W IV ONE (15:13)
--- NOTE | 2022-02-15 15:18 | Operative Report ---
PG Post Operative Report Pre & Post Diagnosis Right Obstructing Stone, Sepsis Same Operation Date: 02/15/22 12:30 <No data on this case meets the specified criteria> I identified the patient and participated in the time-out.: Yes Procedure Cystoscopy with right aspiration of urine, removal of foreign body/clot, retrograde pyelogram, and stent placement. Operation Date: 02/15/22 12:30 <No data on this case meets the specified criteria> Surgeon Myles López, II, DO Hardware Design Engineer None Estimated Blood Loss 1 Findings Consistent with Post-Op Diagnosis Stent placed in good position. Clot material at UO removed with approx 1 cm length of foreign body/clot thrombus Specimens None Drains 6 Fr Multilength Anesthesia Type MAC Complications none Disposition Disposition: Recovery Room Indications Patient with obstruction. Risks and benefits discussed at length. Description of Procedure Patient was consented and brought back to the operating room. Patient was placed under anesthesia in the supine position and moved to the dorsal lithotomy position. Patient was prepped and draped in the regular sterile fashion. A time out was completed. A 30degree Cystoscope was placed into the bladder and the entire bladder was examined. The UO's were identified. A large clot like material was noted at the UO on the right. This was extracted and removed. The UO was cannulized with a catheter, dark/cloudy urine was aspirated, and a retrograde pyelogram was completed. The urine was sent for culture. A wire was then placed. With the wire in place, a 6 Fr Double J stent was placed. It was confirmed with fluoroscopy. With the stent in place, the bladder was emptied. The scope was removed. The patient was cleaned, aroused from anesthesia, and transferred to the pacu in stable condition having tolerated the procedure well with no complications. I was present and participated in all aspects of the procedure. The patient will be monitored in the PACU until transferred. Plan to maintain stent with plans for treatment of stone once improving and stable as outpatient. I attest to the content of the Intraoperative Record and any orders documented therein. Any exceptions are noted below.
[2022-02-15] MEDS ORDERED: DIATRIZOATE MEGLUMINE 30% 100ML VIAL INSTIL PRN (15:21)
[2022-02-15] MEDS ORDERED: predniSONE 20 MG TAB PO STA (15:28)
--- NOTE | 2022-02-15 15:47 | Fluoroscopy Report ---
FL retrograde includes kub CLINICAL HISTORY: RT CYSTO STENT PLACEMENT TECHNIQUE: 2 views were obtained with the C-arm in the OR with the above procedure. Total fluoroscopy time was 11 seconds. Total skin dose was 2.84 mGy. Comparison: None available at the time of this dictation. FINDINGS/IMPRESSION: Intraoperative images were obtained of retrograde cystogram and stent placement on the right. Please correlate with intraoperative fluoroscopy and operative report. ACT 112: Negative or not required by law. Electronically signed by: Antonio Messina M.D. 02/15/2022 3:46 PM
[2022-02-15] MEDS ORDERED: CEFEPIME 2,000 MG in SYRINGE 0 ML IV SCH (16:00)
--- NOTE | 2022-02-15 16:08 | Anesthesiology Progress Note ---
Date of Service February 15, 2022 Anesthesia Post Procedure Vital Signs Vital Signs: Temp Pulse Pulse Resp BP BP Pulse Ox 02/15/22 15:55 93 H 13 100/68 94 02/15/22 15:45 36.3 C L 96 H 17 113/72 94 02/15/22 15:35 101 H 17 113/72 97 02/15/22 15:26 36.5 C 103 H 14 96/73 L 96 02/15/22 11:30 36.7 C 95 H 18 98/63 L 91 02/15/22 09:44 110 H 02/15/22 08:25 36.4 C L 93 H 16 106/70 98 02/15/22 06:30 93 H 16 109/65 95 02/15/22 06:00 93 H 16 99/71 L 96 02/15/22 05:31 94 H 16 96/73 L 98 02/15/22 04:41 95 H 18 99/79 L 90 02/15/22 04:00 98 H 18 106/73 96 02/15/22 02:10 93 H 18 104/90 98 02/15/22 01:35 98 H 18 119/69 95 02/15/22 01:30 85 L 02/15/22 00:26 35.6 C L 104 H 26 H 117/84 97 Pain Intensity Right Flank: Pain Intensity: 10 Transfer of Care Handoff Completed per policy Notes Mental Status: alert / awake / arousable Patient Amnestic to Procedure: Yes Nausea / Vomiting: adequately controlled Pain: adequately controlled Airway Patency, RR, SpO2: stable & adequate BP & HR: stable & adequate Hydration State: stable & adequate Anesthetic Complications: no major complications apparent
[2022-02-15] MEDS ORDERED: GLUCOSE 10 TABS/TUBE PO PRN (17:42)
[2022-02-15] MEDS ORDERED: GLUCOSE 40% GEL 15 GM TUBE PO PRN (17:42)
[2022-02-15] MEDS ORDERED: CARBOHYDRATES FOR HYPOGLYCEMIA PO PRN (17:42)
[2022-02-15] MEDS ORDERED: GLUCAGON FOR INJ 1 MG VIAL SQ PRN (17:42)
[2022-02-15] MEDS ORDERED: DEXTROSE 50% 50 ML SYRINGE IV PRN (17:42)
[2022-02-15] MEDS: cefTRIAXone SODIUM 2,000 MG in DEXTROSE 5% 50 ML IV SCH (18:23)
[2022-02-15] MEDS: INSULIN ASPART PER UNIT SC SCH ×2 (18:26→20:49)
[2022-02-15] MEDS: INSULIN GLARGINE SOLOSTAR 100 UNITS/ML 3 ML PEN SC SCH (20:49)
[2022-02-15] MEDS: UMECLIDINIUM BROMIDE 62.5MCG/BLISTER 7 PUFFS/INHALER INH SCH (20:49)
[2022-02-16] MEDS: VANCOMYCIN HCL 750 MG in SODIUM CHLORIDE 0.9% 250 ML IV SCH ×2 (01:19→14:42)
--- NOTE | 2022-02-16 03:02 | Billing Data ---
Date of Service February 16, 2022 Coding Level of Care Code 93188 Initial Inpt Care Lvl 2
[2022-02-16 05:53] LABS: Basophils # (auto) 0.01 K/uL (0-0.2); Basophils % (auto) 0.1 %; Hematocrit (blood only) 42.1 % (42-52); Hemoglobin 13.4 g/dL (14.0-18.0); Immature Granulocytes # (auto) 0.02 K/uL (0.00-0.02); Immature Granulocytes % (auto) 0.2 %; Lymphocytes # (auto) 0.72 K/uL (1.2-3.4); Lymphocytes % (auto) 8.3 %; Mean Corpuscular Hemoglobin 28.4 pg (25-34); Mean Corpuscular Hgb Conc 31.8 g/dL (32-36); Mean Corpuscular Volume 89.2 fL (80-100); Mean Platelet Volume 9.3 fL (7.4-10.4); Monocytes # (auto) 0.28 K/uL (0.11-0.59); Monocytes % (auto) 3.2 %; Neutrophils # (auto) 7.66 K/uL (1.4-6.5); Neutrophils % (auto) 88.2 %; Platelet Count 256 K/uL (130-400); RDW Coefficient of Variation 15.5 % (11.5-14.5); RDW Standard Deviation 51.4 fL (36.4-46.3); Red Blood Count 4.72 M/uL (4.7-6.1); White Blood Count 8.69 K/uL (4.8-10.8)
[2022-02-16 06:13] LABS: BUN Creatinine Ratio 14.1 (10-20); Calcium 8.5 mg/dl (8.5-10.1); Creatinine Clr Calc Pharmacy 88.6 ml/min; Est GFR (African American) 94.9 ml/min; Est GFR (Non-African American) 81.9 ml/min; Potassium 4.2 mmol/L (3.5-5.1)
[2022-02-16] MEDS ORDERED: SODIUM CHLORIDE 0.9% 500 ML IV ONE (07:08)
[2022-02-16] MEDS: GABAPENTIN 600 MG TAB PO SCH ×3 (08:07→21:12)
[2022-02-16] MEDS: ATORVASTATIN 40 MG TAB PO SCH (08:08)
[2022-02-16] MEDS: DULoxetine HCL 60 MG CAP PO SCH (08:10)
[2022-02-16] MEDS: TAMSULOSIN HCL 0.4 MG CAP PO SCH ×2 (08:11→16:30)
[2022-02-16] MEDS: ROFLUMILAST 500 MCG TAB PO SCH (08:11)
[2022-02-16] MEDS: PANTOprazole 40 MG TAB PO SCH (08:12)
[2022-02-16] MEDS: INSULIN GLARGINE SOLOSTAR 100 UNITS/ML 3 ML PEN SC SCH ×2 (08:26→21:08)
[2022-02-16] MEDS: INSULIN ASPART PER UNIT SC SCH ×4 (08:27→21:10)
[2022-02-16] MEDS: SODIUM CHLORIDE 0.9% 1000ML 1,000 ML IV SCH ×2 (08:34→16:30)
[2022-02-16] MEDS: cefTRIAXone SODIUM 2,000 MG in DEXTROSE 5% 50 ML IV SCH (08:39)
[2022-02-16] MEDS ORDERED: predniSONE 10 MG TABLET PO SCH (09:00)
[2022-02-16] MEDS: guaiFENesin 600 MG TABCR PO SCH ×2 (11:01→21:11)
[2022-02-16] MEDS ORDERED: SODIUM CHLORIDE 0.9% 1000ML 500 ML IV ONE (11:15)
--- NOTE | 2022-02-16 11:18 | Hospitalist Progress Note ---
Date of Service February 16, 2022 Assessment & Plan (1) Kidney stone: (2) Hematuria: (3) Ureterolithiasis: Plan: 61 year old male w/ PMHx of prostate and lung cancers, CAD, HLD, DM2, anxiety, gerd, COPD (former smoker) who presents w/ intractable right flank pain 2/2 R u reteral stone. Is taken for cystoscopy and stent placement, hypotensive and tachycardic following procedure Sepsis, hypotension/tachycardia following cystoscopy for urolithiasis - On admit in absence of urinary sxs and limited UA (no bacteria, but >30 wbc, and unable to determine if leuks or nitrites because of hematuria) abx were deferred AM 02/15 Hypotensive, tachycardic, afebrile Status post right cystoscopy and stent placement. Hematuria cleared, then some return. No pain. Follow clinically. Ceftriaxone/vancomycin empiric Follow UA/UC for cultures and narrow as appropriate TTE 01/16/2021: EF 50-55%. Lateral wall motion abnormality Post anesthesia patient recommended for 6 to 8 L of tidal volume, PPV if LMA/tube required. Seen at recovery, is breathing well at his baseline and recovering well. PPV ordered nightly as needed. Tapering stress dose steroids - Mild tachycardia/hypotension this AM responsive to fluids. 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 Patient has been following up with [facility] lung transplant program. He reports that he is currently undergoing regular follow-up while awaiting his lung volumes to fall within recommendation for transplant, at this time he is having scheduled follow-up with no scheduled intervention. PFT 01/2022: Severe COPD, FVC 64%, FEV1 40%, FEV1/FVC 47%, TLC 93%, DLCO 34% Multiple pulmonary nodules on CT/CTA scheduled for repeat CT chest in 02/2023 [id number] history, stopped smoking 2019 History of STEMI with PCI YARA placement 01/2021 Former tobacco use, quit in 2019 Patient was previously on aspirin monotherapy, reportedly was advised to stop this by his oncologist. Per 02/23/2022 cardiology note review this is only being held prior to seed implantation, but should be restarted as soon as possible. He is more than 1 year out from original stenting. We will continue to hold at this time. Metoprolol held for hypotension Last echo with EF 50% Continue statin Prostate cancer, Argenis 4 Pending radiation therapy/seed placement Continue outpatient follow-up, no acute inpatient intervention at this time Type 2 diabetes mellitus Hold home metformin Basal bolus goal 1001 40 Glargine SSI - BSG 111-126 today; adedquate GERD Continue PPI, omeprazole concerted to Protonix DVT prophylaxis: Heparin CODE STATUS: Full code (4) Acute right flank pain: Plan: - see above (5) Type 2 diabetes mellitus: Plan: As noted (6) Presence of drug coated stent in left circumflex coronary artery: Plan: As noted (7) Prostate cancer: Plan: - planning to start radiation therapy in a few wks. follows Dr. Brennan (8) History of lung cancer: Plan: - In remission since 2011 (9) Sepsis: (10) COPD, group D, by GOLD 2017 classification: (11) CAD (coronary artery disease): (12) UTI (urinary tract infection): Admission and Anticipated Discharge Date Admission Date: February 15, 2022 Subjective Seen at bedside. No fevers, chills, sweats overnight. Has felt a little warm. Initial hematuria cleared post-procedure, then with return of red tinged urine. Denies abdominal pain/N/V/D/C. Throat is a little sore, and some clear/yellow sputum production today. Mild SoB, reports similar to his prior COPD maybe slightly worse. No wheezing. Review of Systems Review of Systems: All systems reviewed & are unremarkable except as noted in Subjective Physical Exam Physical Exam: General:NAD A&Ox3 HEENT: Atraumatic, normocephalic. Vision and hearing grossly intact. Pulm: Moderate air movement, scattered end expiratory wheezes without rales/crackles symmetrical chest rise. No increase in work of breathing. No respiratory distress. Cardiac: RRR, -mrg. Radial pulses intact and symmetrical. Abdominal: Nontender, nondistended, soft. BS present. Results & Data Results & Data ([facility]) Vital Signs (Past 12 Hours) Vital Signs Temp Pulse Pulse Resp BP Pulse Ox 02/16/22 11:04 36.5 C 114 H 18 104/70 90 05/15/22 09:48 93 H 02/16/22 06:46 36.7 C 97 H 20 91/53 L 96 02/16/22 03:20 36.5 C 96 H 20 103/64 92 02/15/22 23:59 92/61 L 02/15/22 23:49 36.9 C 103 H 20 90/54 L 90 02/15/22 23:22 111 H PG Care Time/CCT Total # of Minutes Spent Total Time Spent with Patient: Total time spent is greater than 50% in coordination of care (as documented) at patient's floor/unit and/or counseling patient: Coding Level of Care Code 10754 Subseq Hosp Care Lvl 2 Diagnoses Kidney stone N20.0 Hematuria R31.0 Hematuria type: gross Ureterolithiasis N20.1 Acute right flank pain R10.9 Type 2 diabetes mellitus E11.9 Presence of drug coated stent in left circumflex coronary artery Z95.5 Prostate cancer C61 History of lung cancer Z85.118 Sepsis A41.9 COPD, group D, by GOLD 2017 classification J44.9 CAD (coronary artery disease) I25.10 UTI (urinary tract infection) N39.0 (1) Hematuria Hematuria type: gross Qualified Code(s): R31.0 - Gross hematuria
[2022-02-16] MEDS: HEPARIN SOD 5,000 UNIT/0.5 ML VIAL SQ SCH (12:32)
[2022-02-16] MEDS: UMECLIDINIUM BROMIDE 62.5MCG/BLISTER 7 PUFFS/INHALER INH SCH (21:12)
[2022-02-17] MEDS: HEPARIN SOD 5,000 UNIT/0.5 ML VIAL SQ SCH ×2 (00:01→13:09)
[2022-02-17 02:04] LABS: Basophils # (auto) 0.01 K/uL (0-0.2); Basophils % (auto) 0.1 %; Eosinophils # (auto) 0.03 K/uL (0-0.5); Eosinophils % (auto) 0.4 %; Hematocrit (blood only) 37.6 % (42-52); Hemoglobin 12.2 g/dL (14.0-18.0); Immature Granulocytes # (auto) 0.03 K/uL (0.00-0.02); Immature Granulocytes % (auto) 0.4 %; Lymphocytes # (auto) 1.03 K/uL (1.2-3.4); Mean Corpuscular Hemoglobin 28.7 pg (25-34); Mean Corpuscular Hgb Conc 32.4 g/dL (32-36); Mean Corpuscular Volume 88.5 fL (80-100); Mean Platelet Volume 9.2 fL (7.4-10.4); Monocytes # (auto) 0.54 K/uL (0.11-0.59); Monocytes % (auto) 7.3 %; Neutrophils # (auto) 5.72 K/uL (1.4-6.5); Neutrophils % (auto) 77.8 %; Platelet Count 237 K/uL (130-400); RDW Coefficient of Variation 15.5 % (11.5-14.5); RDW Standard Deviation 49.7 fL (36.4-46.3); Red Blood Count 4.25 M/uL (4.7-6.1); White Blood Count 7.36 K/uL (4.8-10.8)
[2022-02-17 02:40] LABS: BUN Creatinine Ratio 13.3 (10-20); Calcium 8.4 mg/dl (8.5-10.1); Creatinine Clr Calc Pharmacy 116.9 ml/min; Est GFR (African American) 114.8 ml/min; Potassium 3.5 mmol/L (3.5-5.1)
[2022-02-17] MEDS: VANCOMYCIN HCL 750 MG in SODIUM CHLORIDE 0.9% 250 ML IV SCH (02:44)
[2022-02-17 07:32] LABS: Estimated Average Glucose 157 mg/dl; Hemoglobin A1C 7.1 % (4.5-5.6)
[2022-02-17] MEDS: DULoxetine HCL 60 MG CAP PO SCH (08:57)
[2022-02-17] MEDS: PANTOprazole 40 MG TAB PO SCH (08:57)
[2022-02-17] MEDS: INSULIN GLARGINE SOLOSTAR 100 UNITS/ML 3 ML PEN SC SCH (08:57)
[2022-02-17] MEDS: ROFLUMILAST 500 MCG TAB PO SCH (08:57)
[2022-02-17] MEDS: ATORVASTATIN 40 MG TAB PO SCH (08:57)
[2022-02-17] MEDS: TAMSULOSIN HCL 0.4 MG CAP PO SCH (08:57)
[2022-02-17] MEDS: guaiFENesin 600 MG TABCR PO SCH (08:57)
[2022-02-17] MEDS: INSULIN ASPART PER UNIT SC SCH ×2 (08:58→13:09)
[2022-02-17] MEDS: GABAPENTIN 600 MG TAB PO SCH (08:58)
[2022-02-17] MEDS ORDERED: predniSONE 20 MG TAB PO SCH (09:00)
[2022-02-17] MEDS ORDERED: METOPROLOL SUCC 25MG EXT REL TAB PO SCH (09:00)
[2022-02-17] MEDS: cefTRIAXone SODIUM 2,000 MG in DEXTROSE 5% 50 ML IV SCH (09:03)
[2022-02-17] MEDS ORDERED: VANCOMYCIN HCL 1,000 MG in SODIUM CHLORIDE 0.9% 250 ML IV SCH (10:00)
--- NOTE | 2022-02-17 11:48 | Discharge Summary ---
Date of Service February 17, 2022 Admission HPI Per Admitting Provider 61 year old male w/ PMHx of prostate and lung cancers, CAD, HLD, DM2, anxiety, gerd, COPD (former smoker) who presents w/ intractable right flank pain. Pain 10/10->6/10. Pain at righ flank, general abd, and testicles. No hx similar symptoms. Denies prior symptomatic stones. Onset 3PM yesterday. He has dark red hematuria, new onset. No dysuria. -f/c, cp, denies new urinary symptoms. He has chronic dyspnea. He endorses mild vomiting. Patient was seen in the ED yesterday afternoon, went home, and represented to the ED. ED course: IV pain medications. Principal Diagnosis Ureteral stone Discharge Exam General:NAD A&Ox3 HEENT: Atraumatic, normocephalic. Vision and hearing grossly intact. Pulm: Moderate air movement, scattered end expiratory wheezes without rales/crackles symmetrical chest rise. No increase in work of breathing. No respiratory distress. Cardiac: RRR, -mrg. Radial pulses intact and symmetrical. Abdominal: Nontender, nondistended, soft. BS present. Discharge Data Allergies Allergy/AdvReac Type Severity Reaction Status Date / Time No Known Allergies Allergy Verified 02/13/22 09:19 Consultations 02/15/22 05:19 ED Decision to Admit Stat 02/15/22 08:24 Consult Urology Routine Procedures Performed Operation Date: 02/15/22 12:30 Actual Procedures p Cystoscopy, Retrograde, Right Ureteral Stent Insertion(Right) - Myles López DO Ordered Studies 02/15/22 14:28 FL retrograde includes kub Routine Hospital Course (1) Kidney stone: (2) Hematuria: (3) Ureterolithiasis: 61 year old male w/ PMHx of prostate and lung cancers, CAD, HLD, DM2, anxiety, gerd, COPD (former smoker) who presents w/ intractable right flank pain 2/2 R ureteral stone. Is taken for cystoscopy and stent placement, hypotensive and tachycardic following procedure To do as outpatient: 1. Complete 3 additional days of ciprofloxacin twice daily to complete 5 total days of treatment. Of note QTC was normal during admission 2. Follow-up with urology, stent reassessment/removal as outpatient 3. Routine follow-up with PCP. Follow-up on final culture results. Sepsis, hypotension/tachycardia following cystoscopy for urolithiasis - On admit in absence of urinary sxs and limited UA (no bacteria, but >30 wbc, and unable to determine if leuks or nitrites because of hematuria) abx were deferred AM 02/15 Hypotensive, tachycardic, afebrile Status post right cystoscopy and stent placement. Hematuria cleared, then some return. No pain. Follow clinically. Ceftriaxone/vancomycin empiric. Converted to Cipro on discharge. UC/UA Follow UA/UC for cultures and narrow as appropriate. No growth at 48 hours on discharge TTE 01/16/2021: EF 50-55%. Lateral wall motion abnormality Post anesthesia patient recommended for 6 to 8 L of tidal volume, PPV if LMA/tube required. Seen at recovery, is breathing well at his baseline and recovering well. PPV ordered nightly as needed. Tapering stress dose steroids. Patient to continue 1 additional day of prednisone 20 mg and return to 10 mg dose. Is recommended he attempt to taper this as an outpatient further to discontinue, but this has not been tolerated due to his pulmonary status - Mild tachycardia/hypotension responsive to fluids, adequate pressure at discharge. 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 Patient has been following up with [facility] transplant program. He reports that he is currently undergoing regular follow-up while awaiting his lung volumes to fall within recommendation for transplant, at this time he is having scheduled follow-up with no scheduled intervention. PFT 01/2022: Severe COPD, FVC 64%, FEV1 40%, FEV1/FVC 47%, TLC 93%, DLCO 34% Multiple pulmonary nodules on CT/CTA scheduled for repeat CT chest in 02/2023 [id number] history, stopped smoking 2019 History of STEMI with PCI YARA placement 01/2021 Former tobacco use, quit in 2019 Patient was previously on aspirin monotherapy, reportedly was advised to stop this by his oncologist. Per 02/23/2022 cardiology note review this is only being held prior to seed implantation, but should be restarted as soon as possible. He is more than 1 year out from original stenting. We will continue to hold at this time. Metoprolol held for hypotension Last echo with EF 50% Continue statin Prostate cancer, Argenis 4 Pending radiation therapy/seed placement Continue outpatient follow-up, no acute inpatient intervention at this time Type 2 diabetes mellitus Hold home metformin Basal bolus goal 1001 40 Glargine SSI - BSG 111-126 today; adedquate GERD Continue PPI, omeprazole concerted to Protonix DVT prophylaxis: Heparin CODE STATUS: Full code (4) Acute right flank pain: - see above (5) Type 2 diabetes mellitus: As noted (6) Presence of drug coated stent in left circumflex coronary artery: As noted (7) Prostate cancer: - planning to start radiation therapy in a few wks. follows Dr. Brennan (8) History of lung cancer: - In remission since 2011 (9) Sepsis: (10) COPD, group D, by GOLD 2017 classification: (11) CAD (coronary artery disease): (12) UTI (urinary tract infection): Total Time Total Time Spent Total Time Spent (In Minutes): Time spend day of discharge minutes including direct patient care, documentatio n, review of labs and images, and coordination of care. Discharge Plan Discharge Items Patient Disposition: Home - Self-Care Reason For Visit: R URETERAL STONE Discharge Diagnosis: Right ureteral stone, UTI Activity: Resume your previous activity Non-emergency contact: Primary Care Provider and Urologist Call non-emergency contact if: you have any medication questions, your symptoms worsen, your pain is not controlled and your pain is unusual for you Follow-up/Referrals: Lillie Reinoso PA-C [Primary Care Provider] - Myles López DO [Physician] - Diet: Heart Healthy Addtl Attending Provider Instructions: You were seen in the hospital for a right ureteral stone. During observation you had increasing heart rate and worsening blood pressure suggestive of an infection. You were treated with antibiotics and taken for cystoscopy with stent placement. Your heart rate and blood pressure improved, and you have been continued on antibiotics. You have been continued on an antibiotic, ciprofloxacin. Please take ciprofloxacin to 50 mg by mouth twice daily for 3 additional days to complete 5 days of treatment. You were stress dosed on your prednisone during admission. Please take 20 mg instead of 10 mg on 02/18, then decrease to 10 mg of prednisone on 02/19 and thereafter A follow-up appointment is being scheduled for you with both your primary care physician and urologist as above. With urology for stent reevaluation/removal. If you do not receive a call to confirm this appointment within 48 hours, please contact their office at the numbers above. If you develop any new or worsening symptoms including fever, chills, sweats, chest pain, chest pressure, difficulty breathing, uncontrolled nausea/vomiting, rash, wheezing, passing out or nearly passing out, bleeding, black/bloody bowel movements, or other new or concerning symptoms please call your primary care physician, or call 911 for re-evaluation in the emergency department if you are very concerned. Pending Studies at Discharge: No Stand-Alone Forms: My [facility] [employer], Smoking Cessation Medications and DC Order Prescriptions: New ciprofloxacin HCl 250 mg tablet 250 mg PO Q12H 3 Days Qty: 6 RF: 0 Continued tamsulosin 0.4 mg capsule 0.4 mg PO BIDWMEAL Qty: 180 RF: 2 (DME) OneTouch Verio test strips Strip See Rx Instructions .Route Qty: 100 RF: 3 (DME) lancets [OneTouch Delica Lancets] 30 gauge misc See Rx Instructions .Route Qty: 100 RF: 3 dextromethorphan-guaifenesin 10-100 mg/5 mL liquid 10 ml PO Q6H PRN (Reason: cough) Qty: 237 RF: 0 duloxetine 60 mg capsule,delayed release(DR/EC) 60 mg PO DAILY 90 Days Qty: 90 RF: 1 atorvastatin 80 mg tablet 80 mg PO DAILY Qty: 90 RF: 3 omeprazole 40 mg capsule,delayed release(DR/EC) 40 mg PO DAILY Qty: 90 RF: 3 prednisone 10 mg tablet 10 mg PO DAILY Qty: 90 RF: 3 Hold Instructions: Untill Seen by PCP metoprolol succinate 50 mg tablet extended release 24 hr 50 mg PO DAILY Qty: 90 RF: 3 gabapentin 600 mg tablet 600 mg PO TID 30 Days Qty: 90 RF: 5 albuterol sulfate 90 mcg/actuation HFA aerosol inhaler 2 puff inhalation Q6H PRN (Reason: Shortness Of Breath Or Wheezing) Qty: 18 RF: 3 Breo Ellipta 100-25 mcg/dose blister with device 1 inh inhalation QAM Qty: 60 RF: 5 Incruse Ellipta 62.5 mcg/actuation blister with device 1 inh INH QPM Qty: 3 RF: 1 albuterol sulfate 2.5 mg /3 mL (0.083 %) solution for nebulization 2.5 mg inhalation Q4H PRN (Reason: COPD) Qty: 180 RF: 5 Daliresp 500 mcg tablet 500 mcg PO DAILY Qty: 90 RF: 1 ipratropium bromide 0.02 % solution 2.5 ml inhalation Q4H PRN (Reason: COPD) Qty: 180 RF: 5 metformin 500 mg tablet 500 mg PO BID Qty: 180 RF: 3 aspirin [Adult Low Dose Aspirin] 81 mg tablet,delayed release (DR/EC) 81 mg PO DAILY Qty: 90 RF: 3 cyanocobalamin (vitamin B-12) [Vitamin B-12] 2,000 mcg Tablet Extended Release 2,000 mcg PO DAILY RF: 0 azelastine 137 mcg (0.1 %) aerosol,spray 1 spray intranasal BID PRN (Reason: ALLERGIC RHINITIS) RF: 0 Discontinued cephalexin 500 mg capsule 500 mg PO BID RF: 0 Discharge Orders: Discharge Order (Routine); Ordered 02/17/22 Ordered By: Angel Franklin/Other Patient Handouts: Managing Type 2 Diabetes Admission Data Admit Date/Time: 02/15/22 07:10 Attending Provider: Angel Brown Admit Provider: Patrick Merritt Primary Care Provider: Lillie Reinoso Other Providers: Kemar Pak ; Myles López Coding Level of Care Code D/C DAY MANAGEMENT >30 MINS Diagnoses Kidney stone N20.0 Hematuria R31.0 Hematuria type: gross Ureterolithiasis N20.1 Acute right flank pain R10.9 Type 2 diabetes mellitus E11.9 Presence of drug coated stent in left circumflex coronary artery Z95.5 Prostate cancer C61 History of lung cancer Z85.118 Sepsis A41.9 COPD, group D, by GOLD 2017 classification J44.9 CAD (coronary artery disease) I25.10 UTI (urinary tract infection) N39.0
--- NOTE | 2022-02-17 11:57 | Urology Progress Note ---
Date of Service February 17, 2022 Assessment & Plan (1) Kidney stone: (2) Hematuria: (3) Ureterolithiasis: Plan: 61yo M admitted with intractable right flank pain 2/2 right ureteral stone. Pt underwent cysto, stent placement and was hypotensive and tachycardic following procedure. - POD #2 s/p Cystoscopy with right aspiration of urine, removal of foreign body/clot, retrograde pyelogram, and stent placement - Subjectively feeling better. Tolerating the ureteral stent with minimal bother. - Afebrile. - Labs reviewed - Wbc and creatinine normal. - Urine culture final with no growth. Urine culture aspirate from R kidney NGTD. - OK for discharge from perspective. - Recommend d/c with course of PO antibiotics, Tamsulosin, and prn pain medication for stent management. - Will arrange outpatient follow-up with our service for continued care. - Thank you for allowing us to participate in the acute care of Mr. Rosales. Please reconsult us with additional questions, concerns or changes in patient status. Admission and Anticipated Discharge Date Admission Date: February 15, 2022 Subjective Pt examined at bedside this AM. Awake, resting in bed on arrival. No acute distress. Subjectively feeling well this morning. Tolerating the ureteral stent with minimal bother. Denies significant pain. Denies nausea/vomiting. Voiding without issue. Review of Systems Constitutional: as per Subjective / HPI Gastrointestinal: as per Subjective / HPI Genitourinary: + as per Subjective / HPI Physical Exam Constitutional: no acute distress Respiratory: no respiratory distress and no labored breathing Gastrointestinal (Abdomen): Percussion/Palpation: abdomen soft; abdomen nontender and no guarding Neurologic: awake Psychiatric: Orientation: alert, oriented x 3 and cooperative Results & Data ([facility]) Vital Signs (Past 12 Hours) Vital Signs Temp Pulse Pulse Resp BP Pulse Ox 02/17/22 11:47 36.9 C 101 H 18 111/79 95 02/17/22 11:06 36.9 C 101 H 18 111/79 95 02/17/22 08:08 91 H 02/17/22 07:12 36.7 C 95 H 18 102/65 93 02/17/22 02:51 36.5 C 102 H 20 132/83 94 02/16/22 23:54 99 H PG Care Time/CCT Total # of Minutes Spent Total Time Spent with Patient: Total time spent is greater than 50% in coordination of care (as documented) at patient's floor/unit and/or counseling patient: Coding Level of Care Code 24057 Subseq Hosp Care Lvl 2 Diagnoses Kidney stone N20.0 Hematuria R31.0 Hematuria type: gross Ureterolithiasis N20.1 (1) Hematuria Hematuria type: gross Qualified Code(s): R31.0 - Gross hematuria
[2022-02-19] MEDS ORDERED: predniSONE 10 MG TABLET PO SCH (09:00)
== END 2022-02-17 14:53 | disposition home or self-care (01) | DRG 854 ==
LOC: ED 00:19 → SUATTDRO 07:10 → 2N 07:10

== ENCOUNTER 2022-09-09 19:34 | Inpatient (IN) ==
[2022-09-09] MEDS ORDERED: ONDANSETRON INJ 2 MG/ML 2 ML VIAL IV STA (20:49)
[2022-09-09] MEDS ORDERED: KETOROLAC TROMETHAMINE 15 MG/ML VIAL IV STA (20:49)
[2022-09-09] MEDS ORDERED: SODIUM CHLORIDE 0.9% 1000ML 1,000 ML IV ONE (20:49)
[2022-09-09 20:59] LABS: Basophils # (auto) 0.05 K/uL (0-0.2); Basophils % (auto) 0.6 %; Eosinophils # (auto) 0.03 K/uL (0-0.50); Eosinophils % (auto) 0.3 %; Hematocrit (blood only) 47.2 % (40.1-51.0); Hemoglobin 15.2 g/dl (14.0-18.0); Immature Granulocytes # (auto) 0.08 K/uL (0.00-0.02); Immature Granulocytes % (auto) 0.9 %; Lymphocytes # (auto) 0.96 K/uL (1.2-3.4); Lymphocytes % (auto) 10.8 %; Mean Corpuscular Hemoglobin 29.1 pg (25.0-34.0); Mean Corpuscular Hgb Conc 32.2 g/dL (32.0-36.0); Mean Corpuscular Volume 90.2 fL (80.0-100.0); Mean Platelet Volume 9.4 fL (9.4-12.4); Monocytes # (auto) 0.51 K/uL (0.24-0.82); Monocytes % (auto) 5.7 %; Neutrophils # (auto) 7.28 K/uL (1.4-6.5); Neutrophils % (auto) 81.7 %; Platelet Count 306 K/uL (130-400); RDW Coefficient of Variation 15.2 % (11.5-14.5); RDW Standard Deviation 49.9 fL (36.4-46.3); Red Blood Count 5.23 M/uL (4.63-6.08); White Blood Count 8.91 K/ul (4.8-10.8)
[2022-09-09 21:09] LABS: Albumin Level 4.2 gm/dl (3.4-5.0); BUN Creatinine Ratio 12.2 (10-20); Bilirubin Direct 0.2 mg/dl (0-0.2); Bilirubin,Total 0.6 mg/dl (0.2-1.0); Calcium 9.3 mg/dl (8.5-10.1); Creatinine Clr Calc Pharmacy 101.3 ml/min; Est GFR (African American) 109.8 ml/min; Est GFR (Non-African American) 94.8 ml/min; Total Protein 6.8 gm/dl (6.0-8.3)
[2022-09-09 21:21] LABS: iSTAT Creatinine 0.8 mg/dl (0.6-1.3); iSTAT Ionized Calcium 1.21 mmol/l (1.12-1.32); iSTAT Potassium 3.8 mmol/L (3.3-5.0)
[2022-09-09] MEDS ORDERED: OPTIRAY 320 500ml IV ONE (21:47)
[2022-09-09] MEDS ORDERED: MoRPHine SULFATE 4 MG/ML 1 ML CARP\\VIAL IV STA ×2 (22:02→23:44)
[2022-09-09] MEDS: SODIUM CHLORIDE 0.9% 1000ML 1,000 ML IV SCH ×2 (22:07→23:50)
[2022-09-09 22:17] LABS: Appearance Urine Clear (Clear); Bilirubin Urine Negative (Negative); Blood Urine Negative (Negative); Color Urine Yellow; Glucose Urine UA Negative (Negative); Ketones Urine Negative (Negative); Leukocyte Esterase Urine Negative (Negative); Nitrite Urine Negative (Negative); Protein Urine Negative (Negative); Specific Gravity Urine 1.014 (1.000-1.030); Urobilinogen Urine Negative (Negative); pH Urine 5.5 (4.5-7.5)
--- NOTE | 2022-09-09 22:41 | Emergency Department Note ---
History of Present Illness General Chief Complaint: Lower Extremity Injury/Pain Stated Complaint: LOWER BACK PAIN, ABDOMIN PAIN, TESTICLES Time Seen by Provider: 09/09/22 20:46 History of Present Illness Provider Complaint: abdominal pain Onset (ago): 3 day(s) Pain Consistency: constant Location: LLQ and RLQ Radiation: L flank, R flank and other (scrotum) Severity: moderate Maximum Pain Intensity: 6 Current Pain Intensity: 6 Quality: + stabbing and + sharp Relieved By: + nothing Exacerbated By: + nothing Context: + history of similar episodes (Similar as previous kidney stones); no foreign travel, no possible food poisoning, no recent antibiotic use or no recent surgery/procedure Associated Symptoms: + nausea; no vomiting, no fever, no chills, no constipation, no dysuria, no hematemesis, no hematochezia, no melena, no syncope and no back pain Cough with blood-tinged sputum. Home Medications Medication Instructions Recorded Confirmed Type cyanocobalamin (vitamin B-12) 2,000 mcg PO QAM 05/14/20 09/10/22 History 2,000 mcg tablet,extended release (Vitamin B-12 ER) lancets 30 gauge (Royal Yatri HolidaysTouch Delica #100 ea 07/11/21 08/26/22 Rx Lancets) aspirin 81 mg tablet,delayed 81 mg PO DAILY #90 tabs 08/15/21 09/10/22 Rx release (Adult Low Dose Aspirin) omeprazole 40 mg capsule,delayed 40 mg PO DAILY #90 caps 01/28/22 09/10/22 Rx release prednisone 10 mg tablet 10 mg PO DAILY #90 tabs 01/28/22 09/10/22 Rx metoprolol succinate 50 mg 50 mg PO DAILY #90 tabs 02/10/22 09/10/22 Rx tablet,extended release 24 hr gabapentin 600 mg tablet 600 mg PO TID 30 days #90 tabs 03/20/22 09/10/22 Rx atorvastatin 80 mg tablet (Lipitor) 80 mg PO DAILY 04/08/22 09/10/22 History albuterol sulfate 90 mcg/actuation 2 puff inhalation Q6H PRN 05/13/22 09/10/22 Rx aerosol inhaler Shortness Of Breath Or Wheezing #18 grams fluticasone furoate 200 1 inh inhalation DAILY #60 ea 05/13/22 09/10/22 Rx mcg-vilanterol 25 mcg/dose inhalation powder (Breo Ellipta) duloxetine 60 mg capsule,delayed 60 mg PO DAILY 90 days #90 caps 07/07/22 09/10/22 Rx release (Cymbalta) blood sugar diagnostic (OneTouch #100 ea 07/08/22 09/10/22 Rx Verio test strips) albuterol sulfate 2.5 mg/3 mL 2.5 mg (3 mL) inhalation Q4H PRN 08/01/22 09/10/22 Rx (0.083 %) solution for nebulization COPD #180 mL ipratropium bromide 0.02 % 2.5 ml inhalation Q4H PRN COPD 08/01/22 09/10/22 Rx solution for inhalation #180 mL azithromycin 250 mg tablet 250 mg PO .COMPLEX #36 tabs 08/04/22 09/10/22 Rx roflumilast 500 mcg tablet 500 mcg PO DAILY #90 tabs 08/11/22 09/10/22 Rx (Daliresp) umeclidinium 62.5 mcg/actuation 1 inh inhalation QPM #3 Inhalers 08/11/22 09/10/22 Rx blister powder for inhalation (Incruse Ellipta) azelastine 137 mcg (0.1 %) nasal 1 spray intranasal BID PRN 08/21/22 09/10/22 Rx spray aerosol ALLERGIC RHINITIS #90 mL metformin 500 mg tablet 500 mg PO BIDM 09/10/22 09/10/22 History tamsulosin 0.4 mg capsule 0.4 mg PO QPM 09/10/22 09/10/22 History Allergies Allergy/AdvReac Type Severity Reaction Status Date / Time No Known Allergies Allergy Verified 09/10/22 00:21 Past Med/Surg History Medical History Anxiety Asthma BPH with elevated PSA CAD (coronary artery disease) S/p stent 2011 S/p YARA to LCx 01/15/2021 Depression Emphysema lung GERD (gastroesophageal reflux disease) H/O pneumothorax History of lung cancer (2011) NON SMALL CELL LUNG CANCER - STAGE IV DX 2011-LEFT LOBE/NO SURGERY/RADIATION/CHEMO History of pulmonary embolus (PE) 2016-NO ISSUES SINCE Hyperlipidemia Hypertension Kidney stone on right side Neuropathy Prostate cancer Severe chronic obstructive pulmonary disease Evaluated for lung transplant, pulmonary function not sufficiently low at this time SOB (shortness of breath) on exertion STEMI (ST elevation myocardial infarction) (01/2021) FOLLOWS W/ [place] [facility] LAST VISIT 3-4 MOS AGO Stomach ulcer HX -UNDER CONTROL Type 2 diabetes mellitus Surgical History History of cardiac cath W/ STENT- 2011- FOLLOWS W/ [place] CARD[facility] History of colonoscopy History of esophagogastroduodenoscopy (EGD) History of lung surgery STENT TO [id number]? History of prostate biopsy (01/01/22) History of vascular access device PORT PLACEMENT-UPPER LEFT IN PLACE S/P cystoscopy with ureteral stent placement S/P laparoscopic cholecystectomy Family History Mother Coronary heart disease Father , age 90 COPD (chronic obstructive pulmonary disease) Diabetes Aunt Cancer Uncle Diabetes Brother Hypertension Daughter No problems noted. Brother No problems noted. Other No family history of bleeding disorder Denies family history of Ovarian cancer Prostate cancer Breast cancer Colorectal cancer Social History Smoking Status: Former smoker Tobacco Type: Cigarettes packs per day: 1; Cigarettes Per Day: does smoke occ cigar when golfing; Second Hand Exposure: No; Hx Alcohol Use: No Hx Substance Use: No Preferred Language: [place] Communication Ability: Effective Visual Impairment: No Limitations Hearing Ability: Normal Shovel Operator Required: No Beliefs That Will Affect Care: None marital status: Single marital status details: but has 1 daughter Current Living Situation: Alone Current Living Situation Comment: BROTHER AND STEP FATHER TO HELP current occupational status: employed and disabled current occupation: 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 How many Children do You have: 1 Feels Safe at Home: Yes caffeine: Yes (iced tea) during the past year weight has: remained stable Dental Care, Regularly: No Assistive Devices: Denture - Upper and Denture - Lower Review of Systems A total of 10 systems reviewed and were otherwise negative Physical Exam Vital Signs: Vital Signs - 24 hr 09/09/22 19:37 09/09/22 20:49 09/09/22 20:51 Temperature 36.4 C L Temperature Source Temporal Artery Sc an Pulse Rate 108 H 101 H Pulse Rate [Apical ] 100 H Pulse Rate from Sp O2 Sensor Pulse Rhythm [Apic al] Pulse Strength [Ap ical] Respiratory Rate 20 14 18 Respiratory Effort / Characteristics Non-Labored Sponta neous Non-Labored Respiratory Depth Normal Normal Respiratory Patter n Blood Pressure 100/60 Blood Pressure [Ri ght Arm] 92/69 L Blood Pressure Telma n 73 Blood Pressure Telma n [Right Arm] 76 Pulse Oximetry 96 95 94 Oxygen Delivery Me thod Room Air Room Air Room Air Sepsis Recent Feve r Within 48 Hours No Sepsis New/Unexpla ined Change in Men akosua Status N/A Sepsis Action Take n by Nursing No Action Required 09/09/22 22:00 09/09/22 23:13 09/09/22 23:07 Temperature Temperature Source Pulse Rate Pulse Rate [Apical ] 97 H 90 Pulse Rate from Sp O2 Sensor Pulse Rhythm [Apic al] Regular Pulse Strength [Ap ical] Normal Respiratory Rate 20 16 Respiratory Effort / Characteristics Non-Labored Respiratory Depth Normal Respiratory Patter n Regular Blood Pressure 116/80 Blood Pressure [Ri ght Arm] 119/83 113/87 Blood Pressure Telma n 92 Blood Pressure Telma n [Right Arm] 95 95 Pulse Oximetry 94 97 Oxygen Delivery Me thod Room Air Room Air Sepsis Recent Feve r Within 48 Hours Sepsis New/Unexpla ined Change in Men akosua Status Sepsis Action Take n by Nursing 09/09/22 23:11 09/09/22 23:30 09/10/22 00:00 Temperature Temperature Source Pulse Rate Pulse Rate [Apical ] Pulse Rate from Sp O2 Sensor 126 H 93 H 93 H Pulse Rhythm [Apic al] Pulse Strength [Ap ical] Respiratory Rate Respiratory Effort / Characteristics Respiratory Depth Respiratory Patter n Blood Pressure 113/87 120/86 112/78 Blood Pressure [Ri ght Arm] Blood Pressure Telma n 95 97 89 Blood Pressure Telma n [Right Arm] Pulse Oximetry 94 89 L 98 Oxygen Delivery Me thod Sepsis Recent Feve r Within 48 Hours Sepsis New/Unexpla ined Change in Men akosua Status Sepsis Action Take n by Nursing 09/10/22 01:00 Temperature Temperature Source Pulse Rate Pulse Rate [Apical ] Pulse Rate from Sp O2 Sensor 95 H Pulse Rhythm [Apic al] Pulse Strength [Ap ical] Respiratory Rate Respiratory Effort / Characteristics Respiratory Depth Respiratory Patter n Blood Pressure 119/78 Blood Pressure [Ri ght Arm] Blood Pressure Telma n 91 Blood Pressure Telma n [Right Arm] Pulse Oximetry 98 Oxygen Delivery Me thod Sepsis Recent Feve r Within 48 Hours Sepsis New/Unexpla ined Change in Men akosua Status Sepsis Action Take n by Nursing Physical Exam: Physical Exam GENERAL: He is oriented to person, place, and time. He appears well-developed and well-nourished. He does not appear distressed. HENT: Exam performed. - Head: Normocephalic and atraumatic. - Right Ear: External ear normal. No mastoid tenderness. - Left Ear: External ear normal. No mastoid tenderness. - Mouth/Throat: The oropharynx is clear and moist. No trismus in the jaw. No dental abscesses or uvula swelling. No oropharyngeal exudate or tonsillar abscesses. EYES: Conjunctivae and EOM are normal. Pupils are equal, round, and reactive to light. Right eye exhibits no discharge. Left eye exhibits no discharge. No scleral icterus. NECK: Normal range of motion. Neck supple. No JVD present. No spinous process tenderness present. No carotid bruit present. No rigidity. No tracheal deviation and normal range of motion present. No Brudzinski's sign and no Kernig's sign noted. CV: Normal rate, regular rhythm, normal heart sounds and intact distal pulses. There is no peripheral edema. Palpable radial pulses bue. PULM/CHEST: Effort normal and breath sounds normal. No respiratory distress. No stridor. He has no wheezes. He has no rales. - Chest Wall: He exhibits no tenderness. ABD: The abdomen is soft. Bowel sounds are normal. He has no distension. No mass is present. There is tenderness to palpation of the right lower quadrant and left lower quadrant. There is no rebound, no guarding, no Wallace's sign and no tenderness at McBurney's point. Rovsig negative. Right-sided CVA tenderness and left-sided CVA tenderness. : Pain on palpation of the bilateral testicles. Cremasteric reflex present bilaterally. No lesions over the genitalia. MUSC/SKEL: Normal range of motion. There is no peripheral edema, tenderness or deformity. LYMPH: No cervical adenopathy. NEURO: He is alert and oriented to person, place, and time. He has normal strength. No cranial nerve deficit or sensory deficit. Coordination and gait normal. GCS eye subscore is 4. GCS verbal subscore is 5. GCS motor subscore is 6. Cerebellar tests wnl. SKIN: Skin is warm and dry. He is not diaphoretic. PSYCH: He has a normal mood and affect. Behavior is normal. Judgment and thought content normal. Course Course 2045: The patient was evaluated in room B2. A complete history and physical exam was performed Cardiac monitoring: An order was placed for continuous cardiac monitoring. The monitor shows a rate of 90 with sinus rhythm 0015: Vital signs stable. Labs show an elevated lipase level. Patient required multiple doses of analgesia in the emergency department. Imaging shows a normal scrotal ultrasound with exception of hydroceles. CTA of the chest shows small pericardial effusion but no pulmonary embolus. CT of the abdomen without contrast does not show kidney stones there is no reported inflammation of the pancreas however this is again without IV contrast as we are initially scan the patient for kidney stones. [facility] given his elevated lipase Dr. Avelar team notified. Administered Medications Sodium Chloride (Nss 1000ml) 1,000 mls @ 125 mls/hr IV .Q8H IMAN Stop: 10/09/22 22:14 Last Infusion: 09/10/22 00:21 Dose: 125 mls/hr Documented By: Admin: 09/09/22 23:50 Dose: 125 mls/hr Documented By: Infusion: 09/09/22 23:50 Dose: 125 mls/hr Documented By: Admin: 09/09/22 22:07 Dose: 125 mls/hr Documented By: KT Sodium Chloride (Nss 1000ml) 1,000 mls @ 125 mls/hr IV .Q8H IMAN Stop: 10/09/22 23:44 Last Admin: 09/09/22 23:44 Dose: 125 mls/hr Documented By: KILLIAN Discontinued Medications Sodium Chloride (Nss 1000ml) 1,000 mls @ 999 mls/hr IV .Q1H1M ONE Stop: 09/09/22 21:49 Last Infusion: 09/09/22 22:11 Dose: 0 mls/hr Documented By: Admin: 09/09/22 20:53 Dose: 999 mls/hr Documented By: KT Ioversol (Optiray 320 500ml) 112 ml IV ONCE ONE Stop: 09/09/22 21:48 Last Admin: 09/09/22 21:47 Dose: 112 ml Documented By: HANNAH Ketorolac Tromethamine (Ketorolac Tromethamine 15 Mg/Ml Vial) 15 mg IV NOW STA Stop: 09/09/22 20:50 Last Admin: 09/09/22 20:53 Dose: 15 mg Documented By: KT Morphine Sulfate (Morphine Sulfate 4 Mg/Ml 1 Ml Carp\Vial) 4 mg IV NOW STA Stop: 09/09/22 22:03 Last Admin: 09/09/22 22:06 Dose: 4 mg Documented By: KT Morphine Sulfate (Morphine Sulfate 4 Mg/Ml 1 Ml Carp\Vial) 4 mg IV NOW STA Stop: 09/09/22 23:45 Last Admin: 09/09/22 23:48 Dose: 4 mg Documented By: KILLIAN Ondansetron HCl (Ondansetron Inj 2 Mg/Ml 2 Ml Vial) 4 mg IV NOW STA Stop: 09/09/22 20:50 Last Admin: 09/09/22 20:53 Dose: 4 mg Documented By: ALPA Medical Decision Making Laboratory Data Result diagrams: 09/09/22 20:00 09/09/22 20:00 Lab Results 09/09/22 09/09/22 09/09/22 Range/Units 20:00 20:00 21:04 WBC 8.91 (4.8-10.8) K/ul RBC 5.23 (4.63-6.08) M/uL Hgb 15.2 (14.0-18.0) g/dl POC Hgb (14.0-18.0) g/dl Hct 47.2 (40.1-51.0) % POC Hct (42-52) % MCV 90.2 (80.0-100.0) fL MCH 29.1 (25.0-34.0) pg MCHC 32.2 (32.0-36.0) g/dL RDW Std Deviation 49.9 H (36.4-46.3) fL RDW Coeff of Estela 15.2 H (11.5-14.5) % Plt Count 306 (130-400) K/uL MPV 9.4 (9.4-12.4) fL Immature Gran % (Auto) 0.9 % Neut % (Auto) 81.7 % Lymph % (Auto) 10.8 % [place] % (Auto) 5.7 % Eos % (Auto) 0.3 % Baso % (Auto) 0.6 % Neut # (Auto) 7.28 H (1.4-6.5) K/uL Lymph # (Auto) 0.96 L (1.2-3.4) K/uL [place] # (Auto) 0.51 (0.24-0.82) K/uL Eos # (Auto) 0.03 (0-0.50) K/uL Baso # (Auto) 0.05 (0-0.2) K/uL Immature Gran # (Auto) 0.08 H (0.00-0.02) K/uL POC Sodium (135-144) mmol/L Sodium 141 (136-145) mmol/L POC Potassium (3.3-5.0) mmol/L Potassium 4.0 (3.5-5.1) mmol/L POC Chloride (101-112) mmol/L Chloride 105 (98-107) mmol/L Carbon Dioxide 29 (21-32) mmol/L POC Total CO2 (24-31) mmol/L Anion Gap 7 (3-11) POC Anion Gap (16-25) mmol/L POC BUN (7-18) mg/dl BUN 10 (6-23) mg/dl Creatinine 0.82 (0.6-1.4) mg/dl POC Creatinine (0.6-1.3) mg/dl Est Cr Clr Drug Dosing 101.3 ml/min Est GFR ( Amer) 109.8 ml/min Est GFR (Non-Af Amer) 94.8 ml/min BUN/Creatinine Ratio 12.2 (10-20) Glucose 137 H (70-99(Fasting)) mg/dl POC Glucose (other) (70-99) mg/dl Lactate 1.8 (0.4-2.0) mmol/L Calcium 9.3 (8.5-10.1) mg/dl POC Ioniz Calcium [place] (1.12-1.32) mmol/l Total Bilirubin 0.6 (0.2-1.0) mg/dl Direct Bilirubin 0.2 (0-0.2) mg/dl AST 9 L (13-39) U/L ALT 15 (7-52) U/L Alkaline Phosphatase 93 (34-104) U/L Total Protein 6.8 (6.0-8.3) gm/dl Albumin 4.2 (3.4-5.0) gm/dl Lipase 335 H (11-82) U/L Urine Color Urine Appearance (Clear) Urine pH (4.5-7.5) Ur Specific [place] (1.000-1.030) Urine Protein (Negative) Urine Glucose (UA) (Negative) Urine Ketones (Negative) Urine Blood (Negative) Urine Nitrite (Negative) Urine Bilirubin (Negative) Urine Urobilinogen (Negative) Ur Leukocyte Esterase (Negative) SARS-CoV-2, RNA, NAAT (NEGATIVE) 09/09/22 09/09/22 09/09/22 Range/Units 21:08 21:48 21:52 WBC (4.8-10.8) K/ul RBC (4.63-6.08) M/uL Hgb (14.0-18.0) g/dl POC Hgb 15.0 (14.0-18.0) g/dl Hct (40.1-51.0) % POC Hct 44 (42-52) % MCV (80.0-100.0) fL MCH (25.0-34.0) pg MCHC (32.0-36.0) g/dL RDW Std Deviation (36.4-46.3) fL RDW Coeff of Estela (11.5-14.5) % Plt Count (130-400) K/uL MPV (9.4-12.4) fL Immature Gran % (Auto) % Neut % (Auto) % Lymph % (Auto) % [place] % (Auto) % Eos % (Auto) % Baso % (Auto) % Neut # (Auto) (1.4-6.5) K/uL Lymph # (Auto) (1.2-3.4) K/uL [place] # (Auto) (0.24-0.82) K/uL Eos # (Auto) (0-0.50) K/uL Baso # (Auto) (0-0.2) K/uL Immature Gran # (Auto) (0.00-0.02) K/uL POC Sodium 142 (135-144) mmol/L Sodium (136-145) mmol/L POC Potassium 3.8 (3.3-5.0) mmol/L Potassium (3.5-5.1) mmol/L POC Chloride 104 (101-112) mmol/L Chloride (98-107) mmol/L Carbon Dioxide (21-32) mmol/L POC Total CO2 27 (24-31) mmol/L Anion Gap (3-11) POC Anion Gap 16.0 (16-25) mmol/L POC BUN 9 (7-18) mg/dl BUN (6-23) mg/dl Creatinine (0.6-1.4) mg/dl POC Creatinine 0.8 (0.6-1.3) mg/dl Est Cr Clr Drug Dosing ml/min Est GFR ( Amer) ml/min Est GFR (Non-Af Amer) ml/min BUN/Creatinine Ratio (10-20) Glucose (70-99(Fasting)) mg/dl POC Glucose (other) 115 H (70-99) mg/dl Lactate (0.4-2.0) mmol/L Calcium (8.5-10.1) mg/dl POC Ioniz Calcium [place] 1.21 (1.12-1.32) mmol/l Total Bilirubin (0.2-1.0) mg/dl Direct Bilirubin (0-0.2) mg/dl AST (13-39) U/L ALT (7-52) U/L Alkaline Phosphatase (34-104) U/L Total Protein (6.0-8.3) gm/dl Albumin (3.4-5.0) gm/dl Lipase (11-82) U/L Urine Color Yellow Urine Appearance Clear (Clear) Urine pH 5.5 (4.5-7.5) Ur Specific [place] 1.014 (1.000-1.030) Urine Protein Negative (Negative) Urine Glucose (UA) Negative (Negative) Urine Ketones Negative (Negative) Urine Blood Negative (Negative) Urine Nitrite Negative (Negative) Urine Bilirubin Negative (Negative) Urine Urobilinogen Negative (Negative) Ur Leukocyte Esterase Negative (Negative) SARS-CoV-2, RNA, NAAT NEGATIVE (NEGATIVE) Imaging Data Radiologist's Impression: PreliminaryFindingsOnly See Final Report For Complete Findings US SCROTAL: The testes are normal size, shape and echogenicitywith normal blood flow. There are small bilateral hydroceles. There are 4 mmbilateral epididymal cysts. There is a 7 mmleft scrotal calcification. Findings concerning for bilateral varicoceles, incompletelyevaluated. There are small bilateral fatcontaining inguinal hernias. No comparisons. Radiologist: Nadia Bailon MD Study ready at 23:23 and initial results transmitted at 23:53 PreliminaryFindingsOnly See Final Report For Complete Findings CT ABDOMEN & PELVIS Without Contrast: Moderate centrilobular emphysematous changeswith bronchitis. Pericardial effusion measuring 12 mmin maximal diameter. No evidence of acute intra-abdominal pathology. Status post cholecystectomy. Status post gastric stapling. The common bile duct is normal. No evidence of pancreatitis. No evidence of hydronephrosis or urinarycalculi. The appendix is normal. There is a 10 mmfat-containing umbilical hernia. Status post prostate brachytherapy. N o evidence of free air, free fluid or colitis. Mild to moderate calcified atherosclerotic disease of the aorta and iliac arteries. Comparison made to prior CT scan of the pelvis [id number]. Radiologist: Nadia Bailon MD Study ready at 21:51 and initial results transmitted at 22:17 PreliminaryFindingsOnly See Final Report For Complete Findings CTACHEST: No evidence of pulmonaryemboli. Moderate to advanced centrilobular emphysematous changeswith bronchitis, which maybe infectious or inflammatoryetiologies. No consolidation. There is a spiculated soft tissue nodule in the left upper lobe measuring 6.9 x 3.5 mmwith a second spiculated nodule 9.3 x 4.1 mm. Heavilycalc ified atherosclerotic disease of the coronaryarteries. Small pericardial effusion measuring 10 mmin diameter. Ectasia of the ascending aorta measured 36 mmin diameter. [place] Radiologist: Nadia Bailon MD Study ready at 21:51 and initial results transmitted at 22:24 MDM Narrative Vital signs stable. Labs show an elevated lipase level. Patient required multiple doses of analgesia in the emergency department. Imaging shows a normal scrotal ultrasound with exception of hydroceles. CTA of the chest shows small pericardial effusion but no pulmonary embolus. CT of the abdomen without contrast does not show kidney stones there is no reported inflammation of the p ancreas however this is again without IV contrast as we are initially scan the patient for kidney stones. Patient [facility] be [facility] hospitalist team for presumed pancreatitis given his elevated lipase Dr. Avelar team notified. Impression & Plan Pancreatitis Discharge Plan Visit Data Chief Complaint: Lower Extremity Injury/Pain Stated Complaint: LOWER BACK PAIN, ABDOMIN PAIN, TESTICLES ED Provider: Jose Alberts Discharge Problem: Pancreatitis Patient Disposition: Admitted As Inpatient Forms Stand Alone Forms: My [facility] Prescriptions Prescriptions: No Action (DME) lancets [OneTouch Delica Lancets] 30 gauge misc See Rx Instructions .Route Qty: 100 3RF Rx Instructions: use once daily omeprazole 40 mg capsule,delayed release(DR/EC) 40 mg PO DAILY Qty: 90 3RF prednisone 10 mg tablet 10 mg PO DAILY Qty: 90 3RF Hold Instructions: Untill Seen by PCP metoprolol succinate 50 mg tablet extended release 24 hr 50 mg PO DAILY Qty: 90 3RF gabapentin 600 mg tablet 600 mg PO TID 30 Days Qty: 90 5RF duloxetine [Cymbalta] 60 mg capsule,delayed release(DR/EC) 60 mg PO DAILY 90 Days Qty: 90 1RF (DME) OneTouch Verio test strips Strip See Rx Instructions .Route Qty: 100 3RF Rx Instructions: test once daily. azithromycin 250 mg tablet 250 mg PO .COMPLEX Qty: 36 1RF Rx Instructions: 250 mg PO 1 tab p.o. on [id number]; Incruse Ellipta 62.5 mcg/actuation blister with device 1 inh INH QPM Qty: 3 1RF Rx Instructions: 10 PM Daliresp 500 mcg tablet 500 mcg PO DAILY Qty: 90 1RF Label Comments: Start using after 250 MCG tablets are done. azelastine 137 mcg (0.1 %) aerosol,spray 1 spray intranasal BID PRN (Reason: ALLERGIC RHINITIS) Qty: 90 5RF Rx Instructions: USE 1 SPRAY INTRANASALLY TWICE A DAY NEEDED FOR ALLERGIC RHINITIS. ADMINISTER INTO EACH NOSTRIL. albuterol sulfate 90 mcg/actuation HFA aerosol inhaler 2 puff inhalation Q6H PRN (Reason: Shortness Of Breath Or Wheezing) Qty: 18 3RF fluticasone furoate-vilanterol [Breo Ellipta] 200-25 mcg/dose blister with device 1 inh inhalation DAILY Qty: 60 3RF albuterol sulfate 2.5 mg /3 mL (0.083 %) solution for nebulization 2.5 mg inhalation Q4H PRN (Reason: COPD) Qty: 180 5RF ipratropium bromide 0.02 % solution 2.5 ml inhalation Q4H PRN (Reason: COPD) Qty: 180 5RF aspirin [Adult Low Dose Aspirin] 81 mg tablet,delayed release (DR/EC) 81 mg PO DAILY Qty: 90 3RF cyanocobalamin (vitamin B-12) [Vitamin B-12] 2,000 mcg Tablet Extended Release 2,000 mcg PO QAM atorvastatin [Lipitor] 80 mg tablet 80 mg PO DAILY tamsulosin 0.4 mg capsule 0.4 mg PO QPM metformin 500 mg tablet 500 mg PO BIDM Rx Instructions: with meals Referrals Referrals: Cody Ramirez DO [Primary Care Provider] -
[2022-09-09] MEDS ORDERED: SODIUM CHLORIDE 0.9% 1000ML 1,000 ML IV SCH (23:45)
[2022-09-10] MEDS ORDERED: HYDROmorphone INJ 0.5 MG/0.5 ML SYR IV STA ×3 (01:09→23:19)
--- NOTE | 2022-09-10 01:30 | History & Physical Report ---
Date of Service September 10, 2022 Assessment & Plan (1) Pancreatitis: Plan: Lipase is mildly elevated at 335, with normal CT findings, and no suggestion of association with oral intake. May explain his back pain Will repeat lipase in morning if increased and/or persistent symptoms, may do an MRCP (2) Prostate cancer: Plan: Suprapubic pain/scrotal pain/prostate cancer history- Patient with tenderness and fullness over bladder, with normal appearance on CT scan and bedside bladder scan not showing any PVR Scrotal ultrasound with bilateral incompletely evaluated varicoceles and fat- containing bilateral inguinal hernias Continue tamsulosin 0.4 mg in evening Consult urology: Dr. Hernández (3) Pericardial effusion: Plan: Pericardial effusion/CAD/left circumflex drug-coated stent/history of STEMI- Add troponin to ED labs The patient will be admitted to telemetry for serial cardiac enzymes, serial EKG's, cardiac rhythm monitoring and a 2-D echocardiogram with Dopplers. Start colchicine 0.6 mg p.o. twice daily with first dose tonight and increase aspirin from 81 mg every morning to twice daily Continue metoprolol succinate 50 mg daily, aspirin 81 mg daily Consult cardiology: Dr. Muhammad (4) COPD with chronic bronchitis: Plan: COPD with chronic bronchitis/lung cancer stage IV on transplant list/severe COPD/multiple pulmonary nodules- CTA of chest shows no evidence of PE. Moderate to advanced centrilobular emphysematous changes with bronchitis, which may be infectious or inflammatory in etiology. There is a spiculated soft tissue nodule left upper lobe measuring 6.9 x 3.5 mm, with a second spiculated nodule 9.3 x 4.1 mm. Continue at home treatments: Albuterol nebulizers, albuterol HFA, azelastine nasal spray, prophylactic azithromycin Thursday, Thursday and Thursday, fluticasone/vilanterol, ipratropium bromide, prednisone, umeclidinium and Rofl umilast. Does not appear to have any significant change from baseline clinically We will consult his gas station service attendant Dr. Alicia, as patient is undergoing work-up for transplant list (5) History of lung cancer: Plan: See above (6) Severe chronic obstructive pulmonary disease: Plan: See above (7) Multiple pulmonary nodules: Plan: CT reveals 2 spiculated nodules left upper lobe: 6.9 x 3.5 mm and 9.3 x 4.1 mm (8) CAD (coronary artery disease): Plan: See above (9) Presence of drug coated stent in left circumflex coronary artery: Plan: See above (10) STEMI (ST elevation myocardial infarction): Plan: See above (11) Scrotal pain: Plan: Ask urology opinion (12) Type 2 diabetes mellitus: Plan: Hold metformin Placed on Accu-Cheks before meals and at bedtime with NovoLog coverage per SSI (13) Depression: Plan: Continue duloxetine 60 mg daily (14) Dyslipidemia, goal LDL below 70: Plan: Continue atorvastatin 80 mg daily (15) Neuropathy: Plan: Continue gabapentin 600 mg p.o. 3 times daily (16) Vitamin B12 deficiency: Plan: Continue cyanocobalamin 2000 mcg every morning (17) GERD (gastroesophageal reflux disease): Plan: Continue omeprazole/pantoprazole History of Present Illness Chief Complaint: The patient presents to the emergency department with complaint of 3 days of lower back pain and bilateral suprapubic pain and fullness. He continues with his usual cough and chest congestion Primary Care Provider: Cody Ramirez DO The patient is a 62-year-old male with a past medical history including anxiety, neuropathy, avascular necrosis of bilateral hips, vitamin B12 deficiency, allergic rhinitis, GERD, colon polyps, dyslipidemia, BPH with LUTS, urinary tract infection, non-small cell lung cancer stage IV, left circumflex coronary artery stent drug-coated stent, diabetes mellitus type 2, CAD, prostate cancer, STEMI, depression and severe COPD. The patient presents to the emergency department with symptoms as noted above. Allergies Allergy/AdvReac Type Severity Reaction Status Date / Time No Known Allergies Allergy Verified 09/10/22 00:21 Home Medications Medication Instructions Recorded Confirmed Type cyanocobalamin (vitamin B-12) 2,000 mcg PO QAM 05/14/20 09/10/22 History 2,000 mcg tablet,extended release (Vitamin B-12 ER) lancets 30 gauge ([place] #100 ea 07/11/21 08/26/22 Rx Lancets) aspirin 81 mg tablet,delayed 81 mg PO DAILY #90 tabs 08/15/21 09/10/22 Rx release (Adult Low Dose Aspirin) omeprazole 40 mg capsule,delayed 40 mg PO DAILY #90 caps 01/28/22 09/10/22 Rx release prednisone 10 mg tablet 10 mg PO DAILY #90 tabs 01/28/22 09/10/22 Rx metoprolol succinate 50 mg 50 mg PO DAILY #90 tabs 02/10/22 09/10/22 Rx tablet,extended release 24 hr gabapentin 600 mg tablet 600 mg PO TID 30 days #90 tabs 03/20/22 09/10/22 Rx atorvastatin 80 mg tablet (Lipitor) 80 mg PO DAILY 04/08/22 09/10/22 History albuterol sulfate 90 mcg/actuation 2 puff inhalation Q6H PRN 05/13/22 09/10/22 Rx aerosol inhaler Shortness Of Breath Or Wheezing #18 grams fluticasone furoate 200 1 inh inhalation DAILY #60 ea 05/13/22 09/10/22 Rx mcg-vilanterol 25 mcg/dose inhalation powder (Breo Ellipta) duloxetine 60 mg capsule,delayed 60 mg PO DAILY 90 days #90 caps 07/07/22 09/10/22 Rx release (Cymbalta) blood sugar diagnostic (OneTouch #100 ea 07/08/22 09/10/22 Rx Verio test strips) albuterol sulfate 2.5 mg/3 mL 2.5 mg (3 mL) inhalation Q4H PRN 08/01/22 09/10/22 Rx (0.083 %) solution for nebulization COPD #180 mL ipratropium bromide 0.02 % 2.5 ml inhalation Q4H PRN COPD 08/01/22 09/10/22 Rx solution for inhalation #180 mL azithromycin 250 mg tablet 250 mg PO .COMPLEX #36 tabs 08/04/22 09/10/22 Rx roflumilast 500 mcg tablet 500 mcg PO DAILY #90 tabs 08/11/22 09/10/22 Rx (Daliresp) umeclidinium 62.5 mcg/actuation 1 inh inhalation QPM #3 Inhalers 08/11/22 09/10/22 Rx blister powder for inhalation (Incruse Ellipta) azelastine 137 mcg (0.1 %) nasal 1 spray intranasal BID PRN 08/21/22 09/10/22 Rx spray aerosol ALLERGIC RHINITIS #90 mL metformin 500 mg tablet 500 mg PO BIDM 09/10/22 09/10/22 History tamsulosin 0.4 mg capsule 0.4 mg PO QPM 09/10/22 09/10/22 History Past Med/Surg History Medical History (Updated 09/10/22 @ 03:41 by Kemar Pak MD) Anxiety Asthma BPH with elevated PSA CAD (coronary artery disease) S/p stent 2011 S/p YARA to LCx 01/15/2021 Depression Emphysema lung GERD (gastroesophageal reflux disease) H/O pneumothorax History of lung cancer (2011) NON SMALL CELL LUNG CANCER - STAGE IV DX 2011-LEFT LOBE/NO SURGERY/RADIATION/CHEMO History of pulmonary embolus (PE) 2016-NO ISSUES SINCE Hyperlipidemia Hypertension Kidney stone on right side Neuropathy Prostate cancer Severe chronic obstructive pulmonary disease Evaluated for lung transplant, pulmonary function not sufficiently low at this time SOB (shortness of breath) on exertion STEMI (ST elevation myocardial infarction) (01/2021) FOLLOWS W/ [place] [facility]IO LAST VISIT 3-4 MOS AGO Stomach ulcer HX -UNDER CONTROL Type 2 diabetes mellitus Surgical History History of cardiac cath W/ STENT- 2011- FOLLOWS W/ [place] CARDIO History of colonoscopy History of esophagogastroduodenoscopy (EGD) History of lung surgery STENT TO [id number]? History of prostate biopsy (01/01/22) History of vascular access device PORT PLACEMENT-UPPER LEFT IN PLACE S/P cystoscopy with ureteral stent placement S/P laparoscopic cholecystectomy Family History Mother Coronary heart disease Father , age 90 COPD (chronic obstructive pulmonary disease) Diabetes Aunt Cancer Uncle Diabetes Brother Hypertension Daughter No problems noted. Brother No problems noted. Other No family history of bleeding disorder Denies family history of Ovarian cancer Prostate cancer Breast cancer Colorectal cancer Social History Smoking Status: Former smoker Tobacco Type: Cigarettes packs per day: 1; Cigarettes Per Day: does smoke occ cigar when golfing; Second Hand Exposure: No; Hx Alcohol Use: No Hx Substance Use: No Preferred Language: Estonian Communication Ability: Effective Visual Impairment: No Limitations Hearing Ability: Normal Airport Refueling Handler Required: No Beliefs That Will Affect Care: None marital status: Single marital status details: but has 1 daughter Current Living Situation: Alone Current Living Situation Comment: BROTHER AND STEP FATHER TO HELP current occupational status: employed and disabled current occupation: 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 worked at [employer]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 How many Children do You have: 1 Feels Safe at Home: Yes caffeine: Yes (iced tea) during the past year weight has: remained stable Dental Care, Regularly: No Assistive Devices: Denture - Upper and Denture - Lower Review of Systems Review of Systems: The patient denies chest pain, palpitations, lower extremity swelling, sore throat, fevers, chills, sweats, nausea, vomiting, diarrhea , constipation, blood in urine or stool, dysuria, urinary frequency or urgency, lightheadedness, dizziness, headache, memory loss, loss of consciousness, rash, abnormal bruising or bleeding, imbalance, focal or generalized weakness, numbness or tingling in arms or legs, generalized arthralgias or myalgias, neck pain, or night sweats. The review of systems is otherwise negative other than for that already noted above, and at least 10 systems have been reviewed. Physical Exam Physical Exam: The patient is awake, alert and oriented 3, well developed and well nourished, normocephalic and atraumatic, lying in bed and in no acute distress. HEENT--PERRL, EOMI, mucous membranes and oropharynx normal. Neck--supple. No JVD. No bruits. Thyroid normal, trachea midline, no adenopathy. Heart--normal S1 and S2. No murmurs, rubs or gallops. Lungs--clear bilaterally, no respiratory distress, no accessory muscle use. Abdomen--normal bowel sounds and soft. Abdomen nontender nondistended. Suprapubic area with tenderness throughout, with palpable tender bladder. Extremities--no cyanosis or clubbing. No edema. Dermatologic--normal skin turgor, normal color, no abnormal lymph nodes, no rash. Neurologic--cranial nerves II through XII grossly intact. Rheumatologic--normal range of motion. Psychiatric--normal affect. Results & Data Results & Data ([facility]) Vital Signs (Past 12 Hours) Vital Signs Temp Pulse Pulse Resp BP BP Pulse Ox 09/10/22 01:00 119/78 98 09/10/22 00:00 112/78 98 09/09/22 23:30 120/86 89 L 09/09/22 23:11 113/87 94 09/09/22 23:07 116/80 09/09/22 23:13 90 16 113/87 97 09/09/22 22:00 97 H 20 119/83 94 09/09/22 20:51 101 H 18 94 09/09/22 20:49 100 H 14 92/69 L 95 09/09/22 19:37 36.4 C L 108 H 20 100/60 96 O2 Del Method 09/10/22 01:00 09/10/22 00:00 09/09/22 23:30 09/09/22 23:11 09/09/22 23:07 09/09/22 23:13 Room Air 09/09/22 22:00 Room Air 09/09/22 20:51 Room Air 09/09/22 20:49 Room Air 09/09/22 19:37 Room Air Laboratory Results Laboratory Results WBC 8.91 K/ul (4.8-10.8) 09/09/22 20:00 RBC 5.23 M/uL (4.63-6.08) 09/09/22 20:00 Hgb 15.2 g/dl (14.0-18.0) 09/09/22 20:00 POC Hgb 15.0 g/dl (14.0-18.0) 09/09/22 21:08 Hct 47.2 % (40.1-51.0) 09/09/22 20:00 POC Hct 44 % (42-52) 09/09/22 21:08 MCV 90.2 fL (80.0-100.0) 09/09/22 20:00 MCH 29.1 pg (25.0-34.0) 09/09/22 20:00 MCHC 32.2 g/dL (32.0-36.0) 09/09/22 20:00 RDW Std Deviation 49.9 fL (36.4-46.3) H 09/09/22 20:00 RDW Coeff of Estela 15.2 % (11.5-14.5) H 09/09/22 20:00 Plt Count 306 K/uL (130-400) 09/09/22 20:00 MPV 9.4 fL (9.4-12.4) 09/09/22 20:00 Immature Gran % (Auto) 0.9 % 09/09/22 20:00 Neut % (Auto) 81.7 % 09/09/22 20:00 Lymph % (Auto) 10.8 % 09/09/22 20:00 [place] % (Auto) 5.7 % 09/09/22 20:00 Eos % (Auto) 0.3 % 09/09/22 20:00 Baso % (Auto) 0.6 % 09/09/22 20:00 Neut # (Auto) 7.28 K/uL (1.4-6.5) H 09/09/22 20:00 Lymph # (Auto) 0.96 K/uL (1.2-3.4) L 09/09/22 20:00 [place] # (Auto) 0.51 K/uL (0.24-0.82) 09/09/22 20:00 Eos # (Auto) 0.03 K/uL (0-0.50) 09/09/22 20:00 Baso # (Auto) 0.05 K/uL (0-0.2) 09/09/22 20:00 Immature Gran # (Auto) 0.08 K/uL (0.00-0.02) H 09/09/22 20:00 POC Sodium 142 mmol/L (135-144) 09/09/22 21:08 Sodium 141 mmol/L (136-145) 09/09/22 20:00 POC Potassium 3.8 mmol/L (3.3-5.0) 09/09/22 21:08 Potassium 4.0 mmol/L (3.5-5.1) 09/09/22 20:00 POC Chloride 104 mmol/L (101-112) 09/09/22 21:08 Chloride 105 mmol/L (98-107) 09/09/22 20:00 Carbon Dioxide 29 mmol/L (21-32) 09/09/22 20:00 POC Total CO2 27 mmol/L (24-31) 09/09/22 21:08 Anion Gap 7 (3-11) 09/09/22 20:00 POC Anion Gap 16.0 mmol/L (16-25) 09/09/22 21:08 POC BUN 9 mg/dl (7-18) 09/09/22 21:08 BUN 10 mg/dl (6-23) 09/09/22 20:00 Creatinine 0.82 mg/dl (0.6-1.4) 09/09/22 20:00 POC Creatinine 0.8 mg/dl (0.6-1.3) 09/09/22 21:08 Est Cr Clr Drug Dosing 101.3 ml/min 09/09/22 20:00 Est GFR ( Amer) 109.8 ml/min 09/09/22 20:00 Est GFR (Non-Af Amer) 94.8 ml/min 09/09/22 20:00 BUN/Creatinine Ratio 12.2 (10-20) 09/09/22 20:00 Glucose 137 mg/dl (70-99(Fasting)) H 09/09/22 20:00 POC Glucose (other) 115 mg/dl (70-99) H 09/09/22 21:08 Lactate 1.8 mmol/L (0.4-2.0) 09/09/22 21:04 Calcium 9.3 mg/dl (8.5-10.1) 09/09/22 20:00 POC Ioniz Calcium [place] 1.21 mmol/l (1.12-1.32) 09/09/22 21:08 Total Bilirubin 0.6 mg/dl (0.2-1.0) 09/09/22 20:00 Direct Bilirubin 0.2 mg/dl (0-0.2) 09/09/22 20:00 AST 9 U/L (13-39) L 09/09/22 20:00 ALT 15 U/L (7-52) 09/09/22 20:00 Alkaline Phosphatase 93 U/L (34-104) 09/09/22 20:00 Total Protein 6.8 gm/dl (6.0-8.3) 09/09/22 20:00 Albumin 4.2 gm/dl (3.4-5.0) 09/09/22 20:00 Lipase 335 U/L (11-82) H 09/09/22 20:00 Urine Color Yellow 09/09/22:52 Urine Appearance Clear (Clear) 09/09/22:52 Urine pH 5.5 (4.5-7.5) 09/09/22 21:52 Ur Specific [place] 1.014 (1.000-1.030) 09/09/22 21:52 Urine Protein Negative (Negative) 12/06/22 21:52 Urine Glucose (UA) Negative (Negative) 09/09/22 21:52 Urine Ketones Negative (Negative) 09/09/22 21:52 Urine Blood Negative (Negative) 09/09/22 21:52 Urine Nitrite Negative (Negative) 09/09/22 21:52 Urine Bilirubin Negative (Negative) 09/09/22 21:52 Urine Urobilinogen Negative (Negative) 09/09/22 21:52 Ur Leukocyte Esterase Negative (Negative) 09/09/22 21:52 SARS-CoV-2, RNA, NAAT NEGATIVE (NEGATIVE) 09/09/22 21:48 Code Status & VTE Plan Code Status Full code VTE Prophylaxis Plan VTE Prophylaxis will be ordered: Yes (1) Pancreatitis Acute pancreatitis complication: unspecified Chronicity: acute Pancreatitis type: unspecified pancreatitis type Qualified Code(s): K85.90 - Acute pancreatitis without necrosis or infection, unspecified (2) GERD (gastroesophageal reflux disease) Esophagitis presence: esophagitis presence not specified Qualified Code(s): K21.9 - Gastro-esophageal reflux disease without esophagitis
[2022-09-10] MEDS ORDERED: AZELASTINE HCL 0.1% NASAL 200 SPRAYS/27,400 MCG BTL NAE PRN (03:26)
[2022-09-10] MEDS ORDERED: ACETAMINOPHEN 325 MG TAB PO PRN (03:26)
[2022-09-10] MEDS ORDERED: IPRATROPIUM BROMIDE NEB SOLN 0.02% 2.5 ML VIAL INH PRN (03:26)
[2022-09-10] MEDS ORDERED: ONDANSETRON INJ 2 MG/ML 2 ML VIAL IV PRN (03:26)
[2022-09-10] MEDS ORDERED: COLCHICINE 0.6 MG TAB PO ONE (03:26)
[2022-09-10] MEDS ORDERED: ALBUTEROL 0.083% NEBU SOLN 3 ML VIAL INH PRN (03:26)
[2022-09-10] MEDS ORDERED: ALBUT/IPRATROP 3MG/0.5MG NEB 3 ML VIAL INH PRN (03:49)
--- NOTE | 2022-09-10 04:07 | Billing Data ---
Date of Service September 10, 2022 Coding Level of Care Code 03466 Initial Inpt Care Lvl 3
[2022-09-10 04:29] LABS: Basophils # (auto) 0.04 K/uL (0-0.2); Basophils % (auto) 0.6 %; Eosinophils # (auto) 0.06 K/uL (0-0.50); Eosinophils % (auto) 0.9 %; Hematocrit (blood only) 40.7 % (40.1-51.0); Immature Granulocytes # (auto) 0.04 K/uL (0.00-0.02); Immature Granulocytes % (auto) 0.6 %; Lymphocytes # (auto) 1.16 K/uL (1.2-3.4); Lymphocytes % (auto) 16.9 %; Mean Corpuscular Hemoglobin 28.8 pg (25.0-34.0); Mean Corpuscular Hgb Conc 31.9 g/dL (32.0-36.0); Mean Platelet Volume 9.2 fL (9.4-12.4); Monocytes # (auto) 0.55 K/uL (0.24-0.82); Neutrophils # (auto) 5.01 K/uL (1.4-6.5); Platelet Count 229 K/uL (130-400); RDW Coefficient of Variation 15.2 % (11.5-14.5); RDW Standard Deviation 49.8 fL (36.4-46.3); Red Blood Count 4.52 M/uL (4.63-6.08); White Blood Count 6.86 K/ul (4.8-10.8)
[2022-09-10 04:43] LABS: Prothrombin Time 10.7 Seconds (9.0-12.0)
[2022-09-10 05:00] LABS: Albumin Globulin Ratio 1.7 (0.9-2); Albumin Level 3.4 gm/dl (3.4-5.0); BUN Creatinine Ratio 15.6 (10-20); Bilirubin,Total 0.6 mg/dl (0.2-1.0); Calcium 8.2 mg/dl (8.5-10.1); Creatinine Clr Calc Pharmacy 129.8 ml/min; Est GFR (African American) 121.6 ml/min; Est GFR (Non-African American) 104.9 ml/min; Potassium 3.4 mmol/L (3.5-5.1); Total Protein 5.4 gm/dl (6.0-8.3)
--- NOTE | 2022-09-10 06:43 | XRay Report ---
XR chest 2V PA/lateral CLINICAL HISTORY: Cough. COMPARISON STUDY: Chest CT May 12, 2022. Chest radiograph December 18, 2021. FINDINGS: Left subclavian Jaojon-n-Szji is in place. Is no pneumothorax or pleural effusion. Emphysem a is present. Linear right midlung opacity favors atelectasis or scarring. Cardiomediastinal silhouet te is stable. Mild left lower lung interstitial thickening is chronic. Cardiomediastinal silhouette i s normal. IMPRESSION: No acute cardiopulmonary findings. Emphysema. ACT 112: Negative or not required by law. Electronically signed by: Hansel Lopez M.D. 09/10/2022 6:42 AM
--- NOTE | 2022-09-10 07:22 | Ultrasound Report ---
SCROTAL ULTRASOUND CLINICAL HISTORY: Pain COMPARISON STUDY: Testicular ultrasound August 05, 2018. TECHNIQUE: Grayscale and color and duplex Doppler sonography of the scrotum was performed. FINDINGS: Right testis measures 2.8 x 1.8 x 2.5 cm and the left measures 2.6 x 1.8 x 2.7 cm. There is color flow within each testis. There is no testicular mass. There is no evidence for epididymitis. T here are small bilateral epididymal cysts. Suspected small fat-containing right inguinal hernia is pr esent. IMPRESSION: 1. Unremarkable sonographic appearance of the testes. No evidence for testicular torsion. No testicul ar mass. 2. No evidence for epididymitis. ACT 112: Negative or not required by law. Electronically signed by: Hansel Lopez M.D. 09/10/2022 7:20 AM
--- NOTE | 2022-09-10 07:30 | Hospitalist Progress Note ---
Date of Service September 10, 2022 Assessment & Plan (1) Pancreatitis: Plan: Ruled out lipase is normal in am 2/6 , with normal CT findings, and no suggestion of association with oral intake. (2) Prostate cancer: Plan: Suprapubic pain/scrotal pain/prostate cancer history-u/a Patient with tenderness and fullness over bladder, with normal appearance on CT scan and bedside bladder scan not showing any PVR Scrotal ultrasound with bilateral incompletely evaluated varicoceles and fat- containing bilateral inguinal hernias Continue tamsulosin 0.4 mg in evening Consulted urology: Dr. Hernández feels no significant urological abnormalities recommending attempts of Pyridium. Because of the possibility of epididymitis we will institute doxycycline (3) Pericardial effusion: Plan: Very small pericardial effusion/CAD/left circumflex drug-coated stent/history of STEMI-pericardial effusion is small, check inflamatory markers troponin not elevated, ESR is normal, 2-D echocardiogram with Dopplers. Shows no significant pericardial effusion ejection fraction 55 to 60% previous wall motion abnormalities have resolved aspirin from 81 mg every morning daily Continue metoprolol succinate 50 mg daily, (4) COPD with chronic bronchitis: Plan: COPD with chronic bronchitis/lung cancer stage IV on transplant list/severe COPD/multiple pulmonary nodules- CTA of chest shows no evidence of PE. Moderate to advanced centrilobular emphysematous changes with bronchitis, which may be infectious or inflammatory in etiology. There is a spiculated soft tissue nodule left upper lobe measuring 6.9 x 3.5 mm, with a second spiculated nodule 9.3 x 4.1 mm. did have prevous nodules in similar location and similar size Continue at home treatments: Albuterol nebulizers, albuterol HFA, azelastine nasal spray, prophylactic azithromycin Thursday, Thursday and Thursday, fluticasone/vilanterol, ipratropium bromide, prednisone, umeclidinium and Roflumilast. Does not appear to have any significant change from baseline clinically We will consult his credit collector Dr. Alicia, as patient is undergoing work-up for transplant list to eval nodules (5) History of lung cancer: Plan: See above (6) Severe chronic obstructive pulmonary disease: Plan: See above (7) Multiple pulmonary nodules: Plan: CT reveals 2 spiculated nodules left upper lobe: 6.9 x 3.5 mm and 9.3 x 4.1 mm (8) CAD (coronary artery disease): Plan: See above (9) Presence of drug coated stent in left circumflex coronary artery: Plan: See above (10) STEMI (ST elevation myocardial infarction): Plan: See above (11) Scrotal pain: Plan: May be epididymitis we will begin treatment antibiotics pain medication is parenteral with hydrocodone (12) Type 2 diabetes mellitus: Plan: Hold metformin Placed on Accu-Cheks before meals and at bedtime with NovoLog coverage per SSI (13) Depression: Plan: Continue duloxetine 60 mg daily (14) Dyslipidemia, goal LDL below 70: Plan: Continue atorvastatin 80 mg daily (15) Neuropathy: Plan: Continue gabapentin 600 mg p.o. 3 times daily (16) Vitamin B12 deficiency: Plan: Continue cyanocobalamin 2000 mcg every morning (17) GERD (gastroesophageal reflux disease): Plan: Continue omeprazole/pantoprazole Admission and Anticipated Discharge Date Admission Date: September 10, 2022 Subjective Pt presents with b/l groin and testicular pain, no abn urine and testicular US negative, no inguinal hernias this is unusual for him as typically is in with copd and lung cancer related issues Review of Systems Review of Systems: Mild distress and fatigue no headache, no visual changes no speech or swallowing issues no chest pain, pressure or palpitations no shortness of breath, cough or wheezes Bilateral inguinal abdominal pain with radiation to his testicles no other pain no belching bloating nausea vomiting diarrhea constipation no dysuria, hematuria or frequency no other changes in urinary consistency no focal joint pain or swelling no back pain, CVA tenderness or radicular pain no bruising, bleeding or rashes no focal signs of weakness or numbness or altered sensation no complaints of anxiety or depression.. Physical Exam Physical Exam: The patient appeared well nourished and normally developed. Vital signs as documented. Head exam is normocephalic atraumatic Neck is without JVD, thyromegaly, or carotid bruits. Lungs are clear to auscultation, no focal loss of breath sounds Cardiac exam, Rhythm is regular.. No murmurs, rubs or gallops. Abdominal exam reveals normal bowel sounds, soft non tender, no masses Inguinal exam is without inguinal hernias his testicles are descended they are exquisitely tender they are not enlarged there is no abnormal skin changes Extremities are nonedematous and both pedal pulses are present Neurologic exam is alert and oriented, no focal loss of strength or sensation Skin is without bruises or rashes Psychologically is without concerns for anxiety or depression.. Results & Data Results & Data ([facility]) Vital Signs (Past 12 Hours) Vital Signs Temp Pulse Pulse Resp BP BP Pulse Ox 09/10/22 06:30 83 15 112/76 94 09/10/22 06:00 80 12 99/69 L 98 09/10/22 05:31 83 16 91/73 L 96 09/10/22 05:00 86 16 107/78 98 09/10/22 05:02 09/10/22 04:31 98 H 18 92/66 L 92 09/10/22 03:30 86 32 H 102/73 96 09/10/22 03:00 88 35 H 112/64 94 09/10/22 02:30 115/78 94 09/10/22 02:00 118/84 97 09/10/22 01:30 110/82 100 09/10/22 03:26 09/10/22 01:00 119/78 98 09/10/22 00:00 112/78 98 09/09/22 23:30 120/86 89 L 09/09/22 23:11 113/87 94 09/09/22 23:07 116/80 09/09/22 23:13 90 16 113/87 97 09/09/22 22:00 97 H 20 119/83 94 09/09/22 20:51 101 H 18 94 09/09/22 20:49 100 H 14 92/69 L 95 09/09/22 19:37 97.5 F L 108 H 20 100/60 96 Pulse Ox O2 Del Method O2 Del Method O2 Flow Rate O2 Flow Rate 09/10/22 06:30 09/10/22 06:00 09/10/22 05:31 2 09/10/22 05:00 2 09/10/22 05:02 Nasal Cannula 2 09/10/22 04:31 09/10/22 03:30 09/10/22 03:00 09/10/22 02:30 09/10/22 02:00 09/10/22 01:30 09/10/22 03:26 94 Nasal Cannula 2 09/10/22 01:00 09/10/22 00:00 09/09/22 23:30 09/09/22 23:11 09/09/22 23:07 09/09/22 23:13 Room Air 09/09/22 22:00 Room Air 09/09/22 20:51 Room Air 09/09/22 20:49 Room Air 09/09/22 19:37 Room Air PG Care Time/CCT Total # of Minutes Spent Total Time Spent with Patient: Total time spent is greater than 50% in coordination of care (as documented) at patient's floor/unit and/or counseling patient: Coding Level of Care Code 89621 Subseq Hosp Care Lvl 3 Diagnoses Pancreatitis K85.90 Acute pancreatitis complication: unspecified Chronicity: acute Pancreatitis type: unspecified pancreatitis type Prostate cancer C61 Pericardial effusion I31.39 COPD with chronic bronchitis J44.9 History of lung cancer Z85.118 Severe chronic obstructive pulmonary disease J44.9 Multiple pulmonary nodules R91.8 CAD (coronary artery disease) I25.10 Presence of drug coated stent in left circumflex coronary artery Z95.5 STEMI (ST elevation myocardial infarction) I21.3 Scrotal pain N50.82 Type 2 diabetes mellitus E11.9 Depression F32.9 Dyslipidemia, goal LDL below 70 E78.5 Neuropathy G62.9 Vitamin B12 deficiency E53.8 GERD (gastroesophageal reflux disease) K21.9 Esophagitis presence: esophagitis presence not specified (1) Pancreatitis Acute pancreatitis complication: unspecified Chronicity: acute Pancreatitis type: unspecified pancreatitis type Qualified Code(s): K85.90 - Acute pancreatitis without necrosis or infection, unspecified (2) GERD (gastroesophageal reflux disease) Esophagitis presence: esophagitis presence not specified Qualified Code(s): K21.9 - Gastro-esophageal reflux disease without esophagitis
--- NOTE | 2022-09-10 07:56 | CT Scan Report ---
CT OF THE ABDOMEN AND PELVIS WITHOUT CONTRAST CLINICAL HISTORY: Flank pain. Evaluate for stone. COMPARISON STUDY: Renal ultrasound May 29, [address] March 06, 2022. CT of the abdomen and pelvis February 14, 2022. TECHNIQUE: Axial images of the abdomen and pelvis were obtained without IV contrast. Images were revi ewed in the axial, sagittal, and coronal planes. Automated exposure control was utilized for the leland dy. A dose lowering technique was utilized adhering to the principles of ALARA. FINDINGS: Emphysema is noted within the lower lungs. A few punctate right renal calculi measure appro ximately 1 mm. There are no ureteral calculi. There is no hydronephrosis. Evaluation of the remainder of the abdomen and pelvis is suboptimal on this unenhanced exam. There is no significant biliary tacos akosua dilatation status post cholecystectomy. Spleen, adrenal glands and pancreas are unremarkable. The re is no lymphadenopathy. The appendix is normal. No evidence for a bowel obstruction. No ascites. Br achytherapy seeds within the prostate are noted. Avascular necrosis of the bilateral femoral heads is unchanged. IMPRESSION: 1. No ureteral calculi or hydronephrosis. A few punctate right renal calculi. 2. No acute process within the abdomen or pelvis on unenhanced exam. ACT 112: Negative or not required by law. Electronically signed by: Hansel Lopez M.D. 09/10/2022 7:53 AM
--- NOTE | 2022-09-10 07:56 | CT Scan Report ---
CT angio chest PE protocol HISTORY: 62 years-old Male with ro PE. Acute shortness of breath with chest and abdominal pain TECHNIQUE: Multiple CTA images of the chest were obtained after the intravenous administration of 112 ml Optiray. Coronal and sagittal MIPS were obtained from the axial data set and were submitted for review. All measurements were obtained according to NASCET criteria. A dose lowering technique was u tilized adhering to the principles of ALARA. COMPARISON: CT abdomen and pelvis of same day, chest CT 05/12/2022, 11/07/2021 FINDINGS: CTA: Trace pericardial effusion. Moderate coronary artery calcifications. The heart is normal in size. Ath erosclerosis of the thoracic aorta without aneurysm or dissection. Patency of the imaged great vessel s. Left subclavian [id number] catheter distal tip terminates within the mid SVC. Suboptimal evalua tion of the pulmonary arterial tree secondary to contrast bolus timing. No pulmonary emboli are ident ified. CT CHEST: Unremarkable thyroid. There are a few calcified mediastinal lymph nodes noted. No pneumothorax, pleur al effusion, airspace consolidation or overt pulmonary edema. There is severe pulmonary emphysema. Ir regular and spiculated 7 mm nodular density of the left upper lobe on image 188. Irregular linear 1.4 cm nodular fissural density of the right midlung on image 172. Both of these foci are stable. Irregu lar 1.1 cm nodular density within the right midlung on image 193 is also unchanged. Linear right uppe r lobe atelectasis with scarring redemonstrated. There are no new or enlarging pulmonary nodules iden tified. 3 mm subpleural solid nodule within the right middle lobe on image 114 it is likely benign. C entral airways are patent. Unremarkable soft tissues. Postoperative changes of the stomach. Cholecystectomy. Degenerative change s of the shoulders and spine. IMPRESSION: 1. Severe emphysema without acute intrathoracic abnormality. 2. No pulmonary emboli are identified. 3. Unchanged scattered irregular nodular foci of the lungs as described above. 4. No lymphadenopathy. ACT 112: Negative or not required by law. The above report was generated using voice recognition software. It may contain grammatical, syntax o r spelling errors. Electronically signed by: Sudhakar Biggs M.D. 09/10/2022 7:55 AM
[2022-09-10] MEDS: predniSONE 10 MG TABLET PO SCH (08:00)
[2022-09-10] MEDS: ROFLUMILAST 500 MCG TAB PO SCH (08:00)
[2022-09-10] MEDS: PANTOprazole 40 MG TAB PO SCH (08:00)
[2022-09-10] MEDS: AZITHROMYCIN 250 MG TAB PO SCH (08:00)
[2022-09-10] MEDS: GABAPENTIN 600 MG TAB PO SCH ×3 (08:00→19:52)
[2022-09-10] MEDS: DULoxetine HCL 60 MG CAP PO SCH (08:00)
[2022-09-10] MEDS: CYANOCOBALAMIN (B-12) 500 MCG TABLET PO SCH (08:00)
[2022-09-10] MEDS: ASPIRIN 81 MG ECTAB PO SCH (08:00)
[2022-09-10] MEDS: METOPROLOL SUCC 50MG EXT REL TAB PO SCH (08:00)
[2022-09-10] MEDS: ATORVASTATIN 40 MG TAB PO SCH (08:00)
[2022-09-10] MEDS: FLUTICASONE/VILANTEROL 200/25MCG 14 PUFFS/INHALER INH SCH (08:01)
[2022-09-10] MEDS: ALBUTEROL HFA 8 GM INHALER INH SCH ×3 (08:07→19:07)
[2022-09-10] MEDS: HYDROmorphone INJ 1 MG/ML SYRINGE IV PRN ×3 (08:47→18:08)
[2022-09-10] MEDS ORDERED: COLCHICINE 0.6 MG TAB PO SCH (09:00)
--- NOTE | 2022-09-10 09:28 | Urology Consultation ---
Date of Consultation September 10, 2022 Assessment & Plan (1) Scrotal pain: (2) Suprapubic pain: 62-year-old male with history of prostate cancer status post radiation and nephrolithiasis presented to the emergency departent for back, abdominal and testicular pain and admitted for suspected pancreatitis. Urology consulted for suprapubic pain. He is afebrile, lab work reviewed - normal creatinine and no leukocytosis. CT abdomen pelvis reviewed and showed no ureteral calculi or hydronephrosis. Scrotal ultrasound without acute findings. He is voiding without difficulty. Bladder scan today showed 30 mL - continue to monitor. He has history of radiation so may have cystitis, however UA on arrival was negative. Recommend supportive care and symptom management. Ensure bowels are normalized. Can try Pyridium and anti-inflammatories if able to take. will sign off. History of Present Illness Reason for Consultation: suprapubic pain and fullness, hx prostate CA Requesting Physician: Dr. Pak Attending Physician: Rodo Ludwig MD History of Present Illness This is a 62 year old male with past medical history of COPD, hypertension, dyslipidemia, GERD, non small cell lung cancer, type 2 diabetes, CAD, STEMI, BPH, prostate cancer and nephrolithiasis who presented to the emergency department on 09/09/22 with complaint of abdominal, back and testicular pain and admitted for presumed pancreatitis. On arrival he was afebrile. Lab work independently reviewed. Chemistry showed a creatinine of 0.82, normal electrolytes. CBC showed WBC of 8.91, hemoglobin 15.2. Lactate 1.8. Lipase was elevated at 335. Urinalysis was negative. Documented bladder scan was [address] A/P without contrast showed no hydronephrosis, no ureteral calculi; a few punctate right renal calculi noted. Scrotal ultrasound showed unremarkable sonographic appearance of the testes. No evidence for testicular torsion. No testicular mass. No evidence for epididymitis. Urology consulted for suprapubic pain and fullness. He is known to our service for history of Argenis 3+4 prostate cancer status post radiation treatment and history of nephrolithiasis status post right ureteroscopy. Patient seen and examined in ER. He is awake and sitting up in litter eating breakfast. He reports pain across lower abdomen and into testicles. Also notes low back pain. He is voiding spontaneously. No dysuria or hematuria. Last BM yesterday. He denies nausea or vomiting. No fever or chills. Allergies Allergy/AdvReac Type Severity Reaction Status Date / Time No Known Allergies Allergy Verified 09/10/22 00:21 Home Medications Medication Instructions Recorded Confirmed Type cyanocobalamin (vitamin B-12) 2,000 mcg PO QAM 05/14/20 09/10/22 History 2,000 mcg tablet,extended release (Vitamin B-12 ER) [facility]ancets [facility] 07/11/21 08/26/22 Rx Lancets) aspirin 81 mg tablet,delayed 81 mg PO DAILY #90 tabs 08/15/21 09/10/22 Rx release (Adult Low Dose Aspirin) omeprazole 40 mg capsule,delayed 40 mg PO DAILY #90 caps 01/28/22 09/10/22 Rx release prednisone 10 mg tablet 10 mg PO DAILY #90 tabs 01/28/22 09/10/22 Rx metoprolol succinate 50 mg 50 mg PO DAILY #90 tabs 02/10/22 09/10/22 Rx tablet,extended release 24 hr gabapentin 600 mg tablet 600 mg PO TID 30 days #90 tabs 03/20/22 09/10/22 Rx atorvastatin 80 mg tablet (Lipitor) 80 mg PO DAILY 04/08/22 09/10/22 History albuterol sulfate 90 mcg/actuation 2 puff inhalation Q6H PRN 05/13/22 09/10/22 Rx aerosol inhaler Shortness Of Breath Or Wheezing #18 grams duloxetine 60 mg capsule,delayed 60 mg PO DAILY 90 days #90 caps 07/07/22 09/10/22 Rx release (Cymbalta) blood sugar diagnostic ([facility] #100 ea 07/08/22 09/10/22 Rx Verio test strips) albuterol sulfate 2.5 mg/3 mL 2.5 mg (3 mL) inhalation Q4H PRN 08/01/22 09/10/22 Rx (0.083 %) solution for nebulization COPD #180 mL ipratropium bromide 0.02 % 2.5 ml inhalation Q4H PRN COPD 08/01/22 09/10/22 Rx solution for inhalation #180 mL azithromycin 250 mg tablet 250 mg PO .COMPLEX #36 tabs 08/04/22 09/10/22 Rx roflumilast 500 mcg tablet 500 mcg PO DAILY #90 tabs 08/11/22 09/10/22 Rx (Daliresp) umeclidinium 62.5 mcg/actuation 1 inh inhalation QPM #3 Inhalers 08/11/22 09/10/22 Rx blister powder for inhalation (Incruse Ellipta) azelastine 137 mcg (0.1 %) nasal 1 spray intranasal BID PRN 08/21/22 09/10/22 Rx spray aerosol ALLERGIC RHINITIS #90 mL fluticasone furoate 200 1 inh inhalation DAILY #60 ea 09/10/22 Rx mcg-vilanterol 25 mcg/dose inhalation powder (Breo Ellipta) metformin 500 mg tablet 500 mg PO BIDM 09/10/22 09/10/22 History tamsulosin 0.4 mg capsule 0.4 mg PO QPM 09/10/22 09/10/22 History Patient History Medical History Anxiety Asthma BPH with elevated PSA CAD (coronary artery disease) S/p stent 2011 S/p YARA to LCx 01/15/2021 Depression Emphysema lung GERD (gastroesophageal reflux disease) H/O pneumothorax History of lung cancer (2011) NON SMALL CELL LUNG CANCER - STAGE IV DX 2011-LEFT LOBE/NO SURGERY/RADIATION/CHEMO History of pulmonary embolus (PE) 2016-NO ISSUES SINCE Hyperlipidemia Hypertension Kidney stone on right side Neuropathy Prostate cancer Severe chronic obstructive pulmonary disease Evaluated for lung transplant, pulmonary function not sufficiently low at this time SOB (shortness of breath) on exertion STEMI (ST elevation myocardial infarction) (01/2021) FOLLOWS W/ [place] CARDIO LAST VISIT 3-4 MOS AGO Stomach ulcer HX -UNDER CONTROL Type 2 diabetes mellitus Surgical History History of cardiac cath W/ STENT- 2011- FOLLOWS W/ [place] CARDIO History of colonoscopy History of esophagogastroduodenoscopy (EGD) History of lung surgery STENT TO [id number]? History of prostate biopsy (01/01/22) History of vascular access device PORT PLACEMENT-UPPER LEFT IN PLACE S/P cystoscopy with ureteral stent placement S/P laparoscopic cholecystectomy Family History Mother Coronary heart disease Father , age 90 COPD (chronic obstructive pulmonary disease) Diabetes Aunt Cancer Uncle Diabetes Brother Hypertension Daughter No problems noted. Brother No problems noted. Other No family history of bleeding disorder Denies family history of Ovarian cancer Prostate cancer Breast cancer Colorectal cancer Social History Smoking Status: Former smoker Tobacco Type: Cigarettes packs per day: 1; Cigarettes Per Day: does smoke occ cigar when golfing; Second Hand Exposure: No; Hx Alcohol Use: No Hx Substance Use: No Preferred Language: Urdu Communication Ability: Effective Visual Impairment: No Limitations Hearing Ability: Normal Vault Service Mechanic Required: No Beliefs That Will Affect Care: None marital status: Single marital status details: but has 1 daughter Current Living Situation: Alone Current Living Situation Comment: BROTHER AND STEP FATHER TO HELP current occupational status: employed and disabled current occupation: 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 How many Children do You have: 1 Feels Safe at Home: Yes caffeine: Yes (iced tea) during the past year weight has: remained stable Dental Care, Regularly: No Assistive Devices: Denture - Upper and Denture - Lower Review of Systems Review of Systems: All systems reviewed & are unremarkable except as noted in HPI & below Physical Exam Constitutional: well developed and well nourished; no acute distress and not ill appearing Eyes: no scleral abnormality Neck: normal visual inspection Respiratory: normal respiratory effort and able to speak in complete sentences; no respiratory distress and no labored breathing Cardiovascular: Extremities: no pedal edema Gastrointestinal (Abdomen): Inspection/Auscultation: abdomen normal to inspection; abdomen not distended Percussion/Palpation: + abdomen tender (tender to palpation across lower abdomen ) and abdomen soft; no guarding Musculoskeletal: Head/Neck/Chest: normocephalic and head atraumatic Neurologic: moves all extremities and awake Psychiatric: Orientation: alert and oriented x 3 Eye Contact: good eye contact Genitourinary: no CVA tenderness Results & Data ([facility]) Vital Signs (Past 12 Hours) Vital Signs Pulse Pulse Resp BP BP Pulse Ox Pulse Ox 09/10/22 08:00 80 20 125/86 98 09/10/22 06:30 83 15 112/76 94 09/10/22 06:00 80 12 99/69 L 98 09/10/22 05:31 83 16 91/73 L 96 09/10/22 05:00 86 16 107/78 98 09/10/22 05:02 09/10/22 04:31 98 H 18 92/66 L 92 09/10/22 03:30 86 32 H 102/73 96 09/10/22 03:00 88 35 H 112/64 94 09/10/22 02:30 115/78 94 09/10/22 02:00 118/84 97 09/10/22 01:30 110/82 100 09/10/22 03:26 94 09/10/22 01:00 119/78 98 09/10/22 00:00 112/78 98 09/09/22 23:30 120/86 89 L 09/09/22 23:11 113/87 94 09/09/22 23:07 116/80 09/09/22 23:13 90 16 113/87 97 09/09/22 22:00 97 H 20 119/83 94 O2 Del Method O2 Del Method O2 Flow Rate O2 Flow Rate 09/10/22 08:00 Nasal Cannula 2 09/10/22 06:30 09/10/22 06:00 09/10/22 05:31 2 09/10/22 05:00 2 09/10/22 05:02 Nasal Cannula 2 09/10/22 04:31 09/10/22 03:30 09/10/22 03:00 09/10/22 02:30 09/10/22 02:00 09/10/22 01:30 09/10/22 03:26 Nasal Cannula 2 09/10/22 01:00 09/10/22 00:00 09/09/22 23:30 09/09/22 23:11 09/09/22 23:07 09/09/22 23:13 Room Air 09/09/22 22:00 Room Air PG Care Time/CCT Total # of Minutes Spent Total Time Spent with Patient: Total time spent is greater than 50% in coordination of care (as documented) at patient's floor/unit and/or counseling patient: Coding Level of Care Code 31584 Inpt Consult Level 3 Diagnoses Scrotal pain N50.82 Suprapubic pain R10.2
--- NOTE | 2022-09-10 11:59 | XCELERA ---
[id number]
[2022-09-10] MEDS ORDERED: DOXYCYCLINE HYCLATE 100 MG CAP PO STA (14:23)
[2022-09-10] MEDS ORDERED: PHENAZOPYRIDINE HCL 200 MG TAB PO STA (14:23)
[2022-09-10] MEDS ORDERED: ALBUMIN 25% 100 mL 25 GM/100 ML VIAL IV ONE (19:19)
[2022-09-10] MEDS ORDERED: SODIUM CHLORIDE 0.9% 1000ML 500 ML IV ONE (19:19)
[2022-09-10] MEDS: TAMSULOSIN HCL 0.4 MG CAP PO SCH (19:52)
[2022-09-10] MEDS: DOXYCYCLINE HYCLATE 100 MG CAP PO SCH (19:52)
[2022-09-10] MEDS: UMECLIDINIUM BROMIDE 62.5MCG/BLISTER 7 PUFFS/INHALER INH SCH (19:52)
[2022-09-10] MEDS ORDERED: HEPARIN 100 UNIT/ML 5ML FLUSH FLUSH PRN (22:24)
[2022-09-11] MEDS: ALBUTEROL HFA 8 GM INHALER INH SCH ×4 (01:21→19:05)
[2022-09-11] MEDS: HYDROmorphone INJ 0.5 MG/0.5 ML SYR IV PRN ×3 (06:22→14:37)
[2022-09-11 07:10] LABS: Basophils # (auto) 0.05 K/uL (0-0.2); Basophils % (auto) 0.8 %; Eosinophils # (auto) 0.14 K/uL (0-0.50); Eosinophils % (auto) 2.3 %; Hemoglobin 12.5 g/dl (14.0-18.0); Immature Granulocytes # (auto) 0.03 K/uL (0.00-0.02); Immature Granulocytes % (auto) 0.5 %; Lymphocytes % (auto) 16.4 %; Mean Corpuscular Hemoglobin 28.7 pg (25.0-34.0); Mean Corpuscular Hgb Conc 32.1 g/dL (32.0-36.0); Mean Corpuscular Volume 89.4 fL (80.0-100.0); Mean Platelet Volume 9.3 fL (9.4-12.4); Monocytes # (auto) 0.51 K/uL (0.24-0.82); Monocytes % (auto) 8.4 %; Neutrophils # (auto) 4.35 K/uL (1.4-6.5); Neutrophils % (auto) 71.6 %; Platelet Count 222 K/uL (130-400); RDW Coefficient of Variation 14.9 % (11.5-14.5); RDW Standard Deviation 49.2 fL (36.4-46.3); Red Blood Count 4.36 M/uL (4.63-6.08); White Blood Count 6.08 K/ul (4.8-10.8)
[2022-09-11 07:29] LABS: Albumin Globulin Ratio 1.7 (0.9-2); Albumin Level 3.3 gm/dl (3.4-5.0); BUN Creatinine Ratio 12.9 (10-20); Bilirubin,Total 0.4 mg/dl (0.2-1.0); Calcium 8.5 mg/dl (8.5-10.1); Creatinine Clr Calc Pharmacy 121.5 ml/min; Est GFR (African American) 117.2 ml/min; Est GFR (Non-African American) 101.1 ml/min; Globulin 1.9 gm/dl (2.5-4.0); Magnesium 1.8 mg/dl (1.7-2.4); Potassium 3.6 mmol/L (3.5-5.1); Total Protein 5.2 gm/dl (6.0-8.3)
[2022-09-11] MEDS: DOXYCYCLINE HYCLATE 100 MG CAP PO SCH ×2 (07:54→21:11)
[2022-09-11] MEDS: ROFLUMILAST 500 MCG TAB PO SCH (07:54)
[2022-09-11] MEDS: CYANOCOBALAMIN (B-12) 500 MCG TABLET PO SCH (07:54)
[2022-09-11] MEDS: ASPIRIN 81 MG ECTAB PO SCH (07:54)
[2022-09-11] MEDS: FLUTICASONE/VILANTEROL 200/25MCG 14 PUFFS/INHALER INH SCH (07:55)
[2022-09-11] MEDS: PANTOprazole 40 MG TAB PO SCH (07:55)
[2022-09-11] MEDS: ATORVASTATIN 40 MG TAB PO SCH (07:55)
[2022-09-11] MEDS: predniSONE 10 MG TABLET PO SCH (07:55)
[2022-09-11] MEDS: METOPROLOL SUCC 50MG EXT REL TAB PO SCH (07:55)
[2022-09-11] MEDS: DULoxetine HCL 60 MG CAP PO SCH (07:55)
[2022-09-11] MEDS: GABAPENTIN 600 MG TAB PO SCH ×3 (07:56→21:11)
--- NOTE | 2022-09-11 11:09 | Hospitalist Progress Note ---
Date of Service September 11, 2022 Assessment & Plan (1) Suprapubic pain: Plan: ?cystitis. Does not appear infective. Start routine Toradol as NSAID per urology recommendations. Alternative etiology would be coming from his back as below (2) Scrotal pain: Plan: Because of the possibility of epididymitis patient started on doxycycline, however symptoms being bilateral are not typical of this Alternative etiology would be L1/2 radiculopathy - no compression fracture on back. He is a poor surgical candidate and doubtful MRI lumbar spine would be useful other than producing a more definitive diagnosis. Management would be the same as above with NSAIDs. If NSAIDs not helping would consider MRI lumbar spine although compression is more likely in psoas muscle with genitofemoral nerve then disc herniation given lack of leg involvement (3) Pancreatitis: Plan: Agree with prior provider. Do not suspect pancreatitis as cause of his pain. Essentially ruled out. (4) Prostate cancer: Plan: Patient with tenderness and fullness over bladder, with normal appearance on CT scan and bedside bladder scan not showing any PVR Scrotal ultrasound with bilateral incompletely evaluated varicoceles and fat- containing bilateral inguinal hernias Continue tamsulosin 0.4 mg in evening Appreciate urology consult (5) Pericardial effusion: Plan: Ruled out on echocardiogram (6) COPD with chronic bronchitis: Plan: COPD with chronic bronchitis/lung cancer stage IV on transplant list/severe COPD/multiple pulmonary nodules- CTA of chest shows no evidence of PE. Moderate to advanced centrilobular emphysematous changes with bronchitis, which may be infectious or inflammatory in etiology. There is a spiculated soft tissue nodule left upper lobe measuring 6.9 x 3.5 mm, with a second spiculated nodule 9.3 x 4.1 mm. did have previous nodules in similar location and similar size Continue at home treatments: Albuterol nebulizers, albuterol HFA, azelastine nasal spray, prophylactic azithromycin Thursday, Thursday and Thursday, fluticasone/vilanterol, ipratropium bromide, prednisone, umeclidinium and Roflumilast. Does not appear to have any significant change from baseline clinically Follow up with pulmonology as outpatient (7) History of lung cancer: Plan: See above (8) Severe chronic obstructive pulmonary disease: Plan: See above (9) Multiple pulmonary nodules: Plan: CT reveals 2 spiculated nodules left upper lobe: 6.9 x 3.5 mm and 9.3 x 4.1 mm (10) CAD (coronary artery disease): Plan: See above (11) Presence of drug coated stent in left circumflex coronary artery: Plan: See above (12) STEMI (ST elevation myocardial infarction): Plan: See above (13) Type 2 diabetes mellitus: Plan: Hold metformin Placed on Accu-Cheks before meals and at bedtime with NovoLog coverage per SSI (14) Depression: Plan: Continue duloxetine 60 mg daily (15) Dyslipidemia, goal LDL below 70: Plan: Continue atorvastatin 80 mg daily (16) Neuropathy: Plan: Continue gabapentin 600 mg p.o. 3 times daily (17) Vitamin B12 deficiency: Plan: Continue cyanocobalamin 2000 mcg every morning (18) GERD (gastroesophageal reflux disease): Plan: Continue omeprazole/pantoprazole Admission and Anticipated Discharge Date Admission Date: September 10, 2022 Subjective No significant change with testicular and suprapubic pain with Pyridium one dose yesterday. Does not wish to continue with this. No definitive etiology to explain his symptoms on CT A/P. Review of Systems Review of Systems: All systems reviewed & are unremarkable except as noted in Subjective Physical Exam Constitutional: WD/WN, vitals as above Respiratory: normal respiratory effort, lungs clear to auscultation Cardiovascular: RRR, no murmur, no edema Gastrointestinal (Abdomen): Inspection/Auscultation: abdomen normal to inspection and normal bowel sounds; abdomen not distended Percussion/Palpation: + abdomen tender (exquistite suprapubic tenderness), + guarding and abdomen soft; abdomen not rigid Musculoskeletal: no cyanosis or clubbing, extremities motor strength 5/5 Skin: no rashes, warm and dry Neurologic: moves all extremities and awake; not confused Psychiatric: A+Ox3, euthymic affect Results & Data Results & Data ([facility]) Vital Signs (Past 12 Hours) Vital Signs Temp Pulse Pulse Pulse Resp BP Pulse Ox 09/11/22 08:00 09/11/22 08:27 36.6 C 89 16 103/64 94 09/11/22 07:07 95 H 18 92 09/11/22 06:14 88 104/70 09/11/22 03:21 88 100/66 09/11/22 03:19 36.7 C 93 H 18 87/52 L 94 12/08/22 01:21 88 18 96 09/11/22 00:24 87 O2 Del Method O2 Flow Rate 09/11/22 08:00 Nasal Cannula 2 09/11/22 08:27 Room Air 09/11/22 07:07 Nasal Cannula 1.5 09/11/22 06:14 09/11/22 03:21 09/11/22 03:19 Nasal Cannula 2 09/11/22 01:21 Nasal Cannula 1.5 09/11/22 00:24 PG Care Time/CCT Total # of Minutes Spent Total Time Spent with Patient: Total time spent is greater than 50% in coordination of care (as documented) at patient's floor/unit and/or counseling patient: Coding Level of Care Code 28994 Subseq Hosp Care Lvl 2 Diagnoses Suprapubic pain R10.2 Scrotal pain N50.82 Pancreatitis K85.90 Acute pancreatitis complication: unspecified Chronicity: acute Pancreatitis type: unspecified pancreatitis type Prostate cancer C61 Pericardial effusion I31.39 COPD with chronic bronchitis J44.9 History of lung cancer Z85.118 Severe chronic obstructive pulmonary disease J44.9 Multiple pulmonary nodules R91.8 CAD (coronary artery disease) I25.10 Presence of drug coated stent in left circumflex coronary artery Z95.5 STEMI (ST elevation myocardial infarction) I21.3 Type 2 diabetes mellitus E11.9 Depression F32.9 Dyslipidemia, goal LDL below 70 E78.5 Neuropathy G62.9 Vitamin B12 deficiency E53.8 GERD (gastroesophageal reflux disease) K21.9 Esophagitis presence: esophagitis presence not specified (1) Pancreatitis Acute pancreatitis complication: unspecified Chronicity: acute Pancreatitis type: unspecified pancreatitis type Qualified Code(s): K85.90 - Acute pancreatitis without necrosis or infection, unspecified (2) GERD (gastroesophageal reflux disease) Esophagitis presence: esophagitis presence not specified Qualified Code(s): K21.9 - Gastro-esophageal reflux disease without esophagitis
[2022-09-11] MEDS: KETOROLAC TROMETHAMINE 15 MG/ML VIAL IV SCH ×2 (17:01→22:50)
[2022-09-11] MEDS: TAMSULOSIN HCL 0.4 MG CAP PO SCH (21:10)
[2022-09-11] MEDS: UMECLIDINIUM BROMIDE 62.5MCG/BLISTER 7 PUFFS/INHALER INH SCH (21:11)
[2022-09-11] MEDS ORDERED: POLYETHYLENE (MIRALAX) 17 GM PACK PO PRN (21:21)
[2022-09-11] MEDS: HYDROmorphone INJ 1 MG/ML SYRINGE IV PRN (22:51)
[2022-09-11] MEDS: DOCUSATE SODIUM 100 MG CAP PO SCH (22:52)
[2022-09-12] MEDS: ALBUTEROL HFA 8 GM INHALER INH SCH ×3 (00:26→12:52)
[2022-09-12] MEDS: HYDROmorphone INJ 0.5 MG/0.5 ML SYR IV PRN ×2 (03:02→09:12)
[2022-09-12] MEDS ORDERED: CARBOHYDRATES FOR HYPOGLYCEMIA PO PRN (04:58)
[2022-09-12] MEDS ORDERED: DEXTROSE 50% 50 ML SYRINGE IV PRN (04:58)
[2022-09-12] MEDS ORDERED: GLUCOSE 10 TAB/TUBE PO PRN (04:58)
[2022-09-12] MEDS ORDERED: GLUCOSE 40% GEL 15 GM TUBE PO PRN (04:58)
[2022-09-12] MEDS ORDERED: GLUCAGON FOR INJ 1 MG VIAL SQ PRN (04:58)
[2022-09-12] MEDS: KETOROLAC TROMETHAMINE 15 MG/ML VIAL IV SCH ×2 (05:30→11:52)
[2022-09-12 06:44] LABS: Basophils # (auto) 0.06 K/uL (0-0.2); Eosinophils # (auto) 0.14 K/uL (0-0.50); Eosinophils % (auto) 2.3 %; Hematocrit (blood only) 39.3 % (40.1-51.0); Hemoglobin 12.8 g/dl (14.0-18.0); Immature Granulocytes # (auto) 0.03 K/uL (0.00-0.02); Immature Granulocytes % (auto) 0.5 %; Lymphocytes # (auto) 1.09 K/uL (1.2-3.4); Lymphocytes % (auto) 17.7 %; Mean Corpuscular Hgb Conc 32.6 g/dL (32.0-36.0); Mean Corpuscular Volume 88.9 fL (80.0-100.0); Mean Platelet Volume 9.2 fL (9.4-12.4); Monocytes # (auto) 0.63 K/uL (0.24-0.82); Monocytes % (auto) 10.2 %; Neutrophils # (auto) 4.21 K/uL (1.4-6.5); Neutrophils % (auto) 68.3 %; Platelet Count 243 K/uL (130-400); RDW Standard Deviation 49.1 fL (36.4-46.3); Red Blood Count 4.42 M/uL (4.63-6.08); White Blood Count 6.16 K/ul (4.8-10.8)
[2022-09-12 07:09] LABS: Albumin Globulin Ratio 1.8 (0.9-2); Albumin Level 3.4 gm/dl (3.4-5.0); Bilirubin,Total 0.4 mg/dl (0.2-1.0); C Reactive Protein 1.01 mg/dl (0-0.5); Calcium 8.6 mg/dl (8.5-10.1); Creatinine Clr Calc Pharmacy 113.4 ml/min; Est GFR (African American) 113.9 ml/min; Est GFR (Non-African American) 98.3 ml/min; Globulin 1.9 gm/dl (2.5-4.0); Magnesium 1.9 mg/dl (1.7-2.4); Potassium 3.4 mmol/L (3.5-5.1); Total Protein 5.3 gm/dl (6.0-8.3)
[2022-09-12] MEDS: ASPIRIN 81 MG ECTAB PO SCH (08:45)
[2022-09-12] MEDS: ROFLUMILAST 500 MCG TAB PO SCH (08:45)
[2022-09-12] MEDS: GABAPENTIN 600 MG TAB PO SCH ×2 (08:45→16:16)
[2022-09-12] MEDS: AZITHROMYCIN 250 MG TAB PO SCH (08:45)
[2022-09-12] MEDS: CYANOCOBALAMIN (B-12) 500 MCG TABLET PO SCH (08:45)
[2022-09-12] MEDS: DOXYCYCLINE HYCLATE 100 MG CAP PO SCH (08:46)
[2022-09-12] MEDS: PANTOprazole 40 MG TAB PO SCH (08:46)
[2022-09-12] MEDS: ATORVASTATIN 40 MG TAB PO SCH (08:46)
[2022-09-12] MEDS: DOCUSATE SODIUM 100 MG CAP PO SCH (08:46)
[2022-09-12] MEDS: DULoxetine HCL 60 MG CAP PO SCH (08:47)
[2022-09-12] MEDS: METOPROLOL SUCC 50MG EXT REL TAB PO SCH (08:47)
[2022-09-12] MEDS: predniSONE 10 MG TABLET PO SCH (08:47)
[2022-09-12] MEDS: FLUTICASONE/VILANTEROL 200/25MCG 14 PUFFS/INHALER INH SCH (08:47)
[2022-09-12] MEDS: INSULIN ASPART PER UNIT SC SCH ×2 (08:49→12:47)
[2022-09-12 15:11] VITALS: TEMP 97.2
[2022-09-12 15:16] VITALS: BP 93/57; O2SAT 99
[2022-09-12] MEDS ORDERED: cefTRIAXone SODIUM 1,000 MG in DEXTROSE 5% AD-VAN 50 ML IV STA (15:33)
[2022-09-12] MEDS ORDERED: NAPROXEN 250 MG TAB PO STA (15:48)
--- NOTE | 2022-09-12 16:13 | Discharge Summary ---
Date of Service September 12, 2022 Admission HPI Per Admitting Provider The patient is a 62-year-old male with a past medical history including anxiety, neuropathy, avascular necrosis of bilateral hips, vitamin B12 deficiency, allergic rhinitis, GERD, colon polyps, dyslipidemia, BPH with LUTS, urinary tract infection, non-small cell lung cancer stage IV, left circumflex coronary artery stent drug-coated stent, diabetes mellitus type 2, CAD, prostate cancer, STEMI, depression and severe COPD. The patient presents to the emergency department with symptoms as noted above. Discharge Data Allergies Allergy/AdvReac Type Severity Reaction Status Date / Time No Known Allergies Allergy Verified 09/10/22 00:21 Consultations 09/10/22 00:14 ED Decision to Admit Stat 09/10/22 03:58 Consult Urology Routine Ordered Studies 09/09/22 US scrotum/testicle Urgent 09/09/22 20:49 CT abd pelvis wo con Urgent 09/09/22 20:59 CT angio chest PE protocol Urgent Hospital Course (1) Suprapubic pain: ?cystitis. Does not appear infective. Start routine Toradol as NSAID per urology recommendations. Alternative etiology would be coming from his back as below (2) Scrotal pain: Because of the possibility of epididymitis patient started on doxycycline, however symptoms being bilateral are not typical of this Alternative etiology would be L1/2 radiculopathy - no compression fracture on back. He is a poor surgical candidate and doubtful MRI lumbar spine would be useful other than producing a more definitive diagnosis. Management would be the same as above with NSAIDs. If NSAIDs not helping would consider MRI lumbar spine although compression is more likely in psoas muscle with genitofemoral nerve then disc herniation given lack of leg involvement (3) Pancreatitis: Agree with prior provider. Do not suspect pancreatitis as cause of his pain. Essentially ruled out. (4) Prostate cancer: Patient with tenderness and fullness over bladder, with normal appearance on CT scan and bedside bladder scan not showing any PVR Scrotal ultrasound with bilateral incompletely evaluated varicoceles and fat- containing bilateral inguinal hernias Continue tamsulosin 0.4 mg in evening Appreciate urology consult (5) Pericardial effusion: Ruled out on echocardiogram (6) COPD with chronic bronchitis: COPD with chronic bronchitis/lung cancer stage IV on transplant list/severe COPD/multiple pulmonary nodules- CTA of chest shows no evidence of PE. Moderate to advanced centrilobular emphysematous changes with bronchitis, which may be infectious or inflammatory in etiology. There is a spiculated soft tissue nodule left upper lobe measuring 6.9 x 3.5 mm, with a second spiculated nodule 9.3 x 4.1 mm. did have previous nodules in similar location and similar size Continue at home treatments: Albuterol nebulizers, albuterol HFA, azelastine nasal spray, prophylactic azithromycin Thursday, Thursday and Thursday, fluticasone/vilanterol, ipratropium bromide, prednisone, umeclidinium and Roflumilast. Does not appear to have any significant change from baseline clinically Follow up with pulmonology as outpatient (7) History of lung cancer: See above (8) Severe chronic obstructive pulmonary disease: See above (9) Multiple pulmonary nodules: CT reveals 2 spiculated nodules left upper lobe: 6.9 x 3.5 mm and 9.3 x 4.1 mm (10) CAD (coronary artery disease): See above (11) Presence of drug coated stent in left circumflex coronary artery: See above (12) STEMI (ST elevation myocardial infarction): See above (13) Type 2 diabetes mellitus: Hold metformin Placed on Accu-Cheks before meals and at bedtime with NovoLog coverage per SSI (14) Depression: Continue duloxetine 60 mg daily (15) Dyslipidemia, goal LDL below 70: Continue atorvastatin 80 mg daily (16) Neuropathy: Continue gabapentin 600 mg p.o. 3 times daily (17) Vitamin B12 deficiency: Continue cyanocobalamin 2000 mcg every morning (18) GERD (gastroesophageal reflux disease): Continue omeprazole/pantoprazole Discharge Plan Discharge Items Patient Disposition: Home - Self-Care Reason For Visit: SUPRAPUBIC, TESTICULAR AND BACK PAIN Discharge Diagnosis: Unclear definitive diagnosis: Suspected Interstitial cystitis (inflammation of your bladder) possibly due to radiation +/- B12 supplementation Less likely Epididymitis (inflammation of the coiled tube on the back of the testicle) Less likely Lumbar or genitofemoral nerve back from your back Activity: Resume your previous activity Non-emergency contact: Primary Care Provider Call non-emergency contact if: you have any medication questions and your symptoms worsen Follow-up/Referrals: Cody Ramirez, [Primary Care Provider] - (1 week hospital follow up) Diet: Regular Addtl Attending Provider Instructions: You were admitted to [facility] from September 10 - 2021 due to suprapubic and testicular pain. No definitive etiology found on imaging. Suspect most likely diagnosis is interstitial cystitis (inflammation of your bladder) from prior radiation and B12 supplementation. Recommend stopping your B12 supplements and following up with your primary care provider given prior deficiency. For the inflammation you were treated with Toradol during your inpatient stay. Recommend continuing naproxen for 2 weeks as prescribed. You were also diagnosed with possible Epididymitis (inflammation of the coiled tube on the back of the testicle). This was treated with one dose of ceftriaxone (antibiotic) and recommend continued doxycycline for a total of 10 days (8 further days on discharge). Least likely the pain may be coming from your back causing nerve compression around L1/L2. This appears to be less likely given your examination findings with significant suprapubic pain - this would also improve with Toradol (anti- inflammatory during your inpatient stay) and recommend continuing naproxen as above. Please follow up with your primary care physician for ongoing management of this. Pending Studies at Discharge: No Stand-Alone Forms: [facility], Smoking Cessation Medications and DC Order Prescriptions: New doxycycline hyclate 100 mg tablet 100 mg PO BID 8 Days Qty: 16 0RF naproxen 375 mg tablet 375 mg PO BID 14 Days Qty: 28 0RF Continued (DME) lancets [OneTouch Delica Lancets] 30 gauge misc See Rx Instructions .Route Qty: 100 3RF Rx Instructions: use once daily omeprazole 40 mg capsule,delayed release(DR/EC) 40 mg PO DAILY Qty: 90 3RF prednisone 10 mg tablet 10 mg PO DAILY Qty: 90 3RF Hold Instructions: Untill Seen by PCP metoprolol succinate 50 mg tablet extended release 24 hr 50 mg PO DAILY Qty: 90 3RF gabapentin 600 mg tablet 600 mg PO TID 30 Days Qty: 90 5RF duloxetine [Cymbalta] 60 mg capsule,delayed release(DR/EC) 60 mg PO DAILY 90 Days Qty: 90 1RF (DME) OneTouch Verio test strips Strip See Rx Instructions .Route Qty: 100 3RF Rx Instructions: test once daily. azithromycin 250 mg tablet 250 mg PO .COMPLEX Qty: 36 1RF Rx Instructions: 250 mg PO 1 tab p.o. on [id number]-Flfaufixx-Shezrh; Incruse Ellipta 62.5 mcg/actuation blister with device 1 inh INH QPM Qty: 3 1RF Rx Instructions: 10 PM Daliresp 500 mcg tablet 500 mcg PO DAILY Qty: 90 1RF Label Comments: Start using after 250 MCG tablets are done. azelastine 137 mcg (0.1 %) aerosol,spray 1 spray intranasal BID PRN (Reason: ALLERGIC RHINITIS) Qty: 90 5RF Rx Instructions: USE 1 SPRAY INTRANASALLY TWICE A DAY NEEDED FOR ALLERGIC RHINITIS. ADMINISTER INTO EACH NOSTRIL. fluticasone furoate-vilanterol [Breo Ellipta] 200-25 mcg/dose blister with device 1 inh inhalation DAILY Qty: 60 3RF albuterol sulfate 90 mcg/actuation HFA aerosol inhaler 2 puff inhalation Q6H PRN (Reason: Shortness Of Breath Or Wheezing) Qty: 18 3RF albuterol sulfate 2.5 mg /3 mL (0.083 %) solution for nebulization 2.5 mg inhalation Q4H PRN (Reason: COPD) Qty: 180 5RF ipratropium bromide 0.02 % solution 2.5 ml inhalation Q4H PRN (Reason: COPD) Qty: 180 5RF aspirin [Adult Low Dose Aspirin] 81 mg tablet,delayed release (DR/EC) 81 mg PO DAILY Qty: 90 3RF atorvastatin [Lipitor] 80 mg tablet 80 mg PO DAILY tamsulosin 0.4 mg capsule 0.4 mg PO QPM metformin 500 mg tablet 500 mg PO BIDM Rx Instructions: with meals Discontinued cyanocobalamin (vitamin B-12) [Vitamin B-12] 2,000 mcg Tablet Extended Release 2,000 mcg PO QAM Discharge Orders: Discharge Order (Routine); Ordered 09/12/22 Ordered By: Nate Mi Admission Data Admit Date/Time: 09/10/22 01:29 Attending Provider: Nate Mi Admit Provider: Kemar Pak Primary Care Provider: Cody Ramirez Other Providers: Kemar Pak ; Felipe Hernández Coding Diagnoses Suprapubic pain R10.2 Scrotal pain N50.82 Pancreatitis K85.90 Acute pancreatitis complication: unspecified Chronicity: acute Pancreatitis type: unspecified pancreatitis type Prostate cancer C61 Pericardial effusion I31.39 COPD with chronic bronchitis J44.9 History of lung cancer Z85.118 Severe chronic obstructive pulmonary disease J44.9 Multiple pulmonary nodules R91.8 CAD (coronary artery disease) I25.10 Presence of drug coated stent in left circumflex coronary artery Z95.5 STEMI (ST elevation myocardial infarction) I21.3 Type 2 diabetes mellitus E11.9 Depression F32.9 Dyslipidemia, goal LDL below 70 E78.5 Neuropathy G62.9 Vitamin B12 deficiency E53.8 GERD (gastroesophageal reflux disease) K21.9 Esophagitis presence: esophagitis presence not specified
[2022-09-12 16:28] VITALS: PULSE 88
== END 2022-09-12 17:41 | disposition home or self-care (01) | DRG 690 ==
LOC: ED 19:34 → EDINP 09-10 01:29 → SUATTDRO 09-10 01:29 → 2S 09-10 03:29 → 3N 09-11 23:39

== ENCOUNTER 2023-02-01 22:37 | Inpatient (IN) ==
[2023-02-01] MEDS ORDERED: ACETAMINOPHEN 1,000 MG/100 ML VIAL IV STA (22:58)
[2023-02-01] MEDS ORDERED: ALBUT/IPRATROP 3MG/0.5MG NEB 3 ML VIAL NEB ONE (22:58)
--- NOTE | 2023-02-01 23:04 | Emergency Department Note ---
Impression & Plan Acute hypercapnic respiratory failure, Headache ED Provider Note Name: NATY PERRY Age: 62 Sex: M Arrives Via: Walk-In Informant: Patient ED Provider: Alvarado Soni MD Chief Complaint: Difficulty breathing Impression: As per impressions above Medical Decision Makin-year-old gentleman with a long history of COPD arrives for evaluation of worsening breathing. On exam patient has tight lung sounds with very faint expiratory wheeze. He is having a lot of trouble breathing. He was given an hour-long nebulizer and appears mildly improved though still is not moving much air. Oxygenation is good throughout. He was given some IV magnesium for further management. Chest x-ray is unremarkable as are [employer] and other laboratory tests. He does have a moderate headache posteriorly which she notes has been going on for a few days. CT of the head is unremarkable he has no evidence of meningitis and no other concerning findings. There is no clear indication of need for neuroimaging further at this time. Patient with NIH of 0 and dissection, meningitis, thrombosis also quite unlikely. In the setting of COPD exacerbation with retaining I think PE is unlikely and thus CT PE is not obtained. Prior Medical Record and Triage/Nursing Notes reviewed by Me External chart reviewed by me Differentials:Reactive airway disease, pneumonia, pneumothorax, COPD, CHF, infections, cardiac ischemia, pulmonary embolism, musculoskeletal, gastrointestinal, as well as other pathologies. Vital Signs: reviewed and remarkable for no significant abnormalities Interventions: DuoNeb 1 hour neb, Decadron 10 mg IV, magnesium 1 g IV, Tylenol 1 g IV, morphine 4 mg IV, Labs:Reviewed and remarkable for VBG reveals acidosis with hypercapnia Imagin view chest x-ray interpreted by me no infiltrate, effusion. Chronic lung disease noted. No pneumothorax. CT of the head without contrast as per my informal interpretation reveals no intracranial hemorrhage mass effect. Confirmed by radiologist EKG:As per my interpretation. Indication shortness of breath. Normal sinus rhythm at 90 bpm no ectopy no ischemia. QTc is 444. When compared to an EKG of January 06, 2023 there is no significant change. Cardiac/Tele Monitoring: Cardiac Monitoring: An Order was placed for continuous cardiac monitoring. The monitor shows a rate of 90 with a normal sinus rhythm. Consults:Dr Pak of the [facility] service Plan: Disposition:Hospitalization. Condition: Good History of Present Illness:62-year-old gentleman arrives for evaluation of shortness of breath. Patient states that for the last few days he has had worsening tight lung mcnair and a sore throat. Took a home COVID test which was negative. [place] like he was going to pass out due to his breathing. Notes he has developed somewhat of a posterior headache as well. Denies any neurologic deficits. Has not had any fevers, chills, syncope, chest pain, nausea, vomiting abdominal pain or other concerning signs or symptoms. Has had no recent leg swelling or calf pain. Medications prior to arrival. Patient with long history of lung disease following lung cancer and is on chronic prednisone. Recently he was titrated from 10 mg to 7.5 mg of prednisone daily. Past History:See Below Home Medications:See Below Allergies:nkda Vitals:Blood Pressure: 101/65, Pulse 113, RR 20, T 36.1C, O2 95% on RA Physical Exam: GENERAL: Patient is chronically unwell appearing and in moderate distress. EYES: No scleral icterus, unremarkable pupils. ENT: Mucous membranes moist, no nasal congestion. Moderate posterior pharyngeal erythema NECK: No masses appreciated, nomeningismus, trachea is midline. RESPIRATORY: Diffusely tight lung sounds with some expiratory wheeze CARDIOVASCULAR: Tachycardic.No murmurs, rubs, gallops appreciated. GASTROINTESTINAL: Abdomen soft, non-tender, no peritonitis. EXTREMITIES: Normal motion all extremities, no cyanosis, no edema. NEUROLOGIC: Alert and oriented, no focal neurologic deficits SKIN: No rash, no jaundice, no diaphoresis. PSYCH: Appropriate GCS: 15 ED Course: Times/Reassessments: Patient with mild improvement in breathing but still quite tight lung sounds Alvarado Soni MD Past Med/Surg History Medical History Anxiety Asthma BPH with elevated PSA CAD (coronary artery disease) S/p stent 2020 S/p YARA to LCx 01/15/2021 Chronic obstructive pulmonary disease Depression Emphysema lung GERD (gastroesophageal reflux disease) H/O pneumothorax History of home oxygen therapy "USED WHEN I FIRST HAD IT, NOW I DON'T THINK IT HELPS, SO I DON'T USE IT VERY OFTEN" History of lung cancer (2011) NON SMALL CELL LUNG CANCER - STAGE IV DX 2011-LEFT LOBE/NO SURGERY/RADIATION/CHEMO FEEDING TUBE PRESENT FOR 1.5 YEARS DURING THIS TIME History of pulmonary embolus (PE) 2017-NO ISSUES SINCE History of tachycardia 01/06/23, recently seen in the [place] ER for tachycardia. Pt stated the doctor increased his metoprolol to 75mg daily. Hyperlipidemia Hypertension Neuropathy Prostate cancer 2021; RADIATION TREATMENT, NO SX. Severe chronic obstructive pulmonary disease Evaluated for lung transplant, pulmonary function not sufficiently low at this time SOB (shortness of breath) on exertion STEMI (ST elevation myocardial infarction) (01/2021) 2020, BROUGHT TO [place] ER-"HAVING PAIN AND DIDN'T FEEL WELL"; FOLLOWS W/ [place] CARDIO Stomach ulcer HX -UNDER CONTROL Type 2 diabetes mellitus Surgical History History of cardiac cath W/ X1 STENT- 2020- FOLLOWS W/ [place] CARDIO History of colonoscopy History of esophagogastroduodenoscopy (EGD) History of lung surgery STENT TO [id number]? History of prostate biopsy (01/01/22) History of vascular access device PORT PLACEMENT-UPPER LEFT IN PLACE-UNSURE OF TYPE OF PORT Hx of inguinal hernia surgery S/P cystoscopy with ureteral stent placement S/P REMOVAL STENT ALSO S/P laparoscopic cholecystectomy Family History Mother Coronary heart disease Father , age 90 COPD (chronic obstructive pulmonary disease) Diabetes Aunt Cancer Uncle Diabetes Brother Hypertension Daughter No problems noted. Brother No problems noted. Other No family history of bleeding disorder Denies family history of Ovarian cancer Prostate cancer Breast cancer Colorectal cancer Social History Smoking Status: Never smoker Tobacco Type: Cigarettes packs per day: 1; Cigarettes Per Day: does smoke occ cigar when golfing; Second Hand Exposure: Yes (HX-WORK); Do You Dip or Chew Tobacco: No; Hx Alcohol Use: Yes (HX-QUIT 2003) Hx Substance Use: No Preferred Language: Cuban Communication Ability: Effective Visual Impairment: No Limitations Hearing Ability: Normal Blood Bank Coordinator Required: No Beliefs That Will Affect Care: None marital status: Single marital status details: but has 1 daughter Current Living Situation: Alone Current Living Situation Comment: BROTHER AND STEP FATHER TO HELP current occupational status: employed and disabled current occupation: 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 How many Children do You have: 1 Feels Safe at Home: Yes Diet: regular caffeine: Yes (iced tea) during the past year weight has: remained stable Dental Care, Regularly: No Assistive Devices: Denture - Upper, Denture - Lower and Nebulizer Allergies Allergies Allergy/AdvReac Type Severity Reaction Status Date / Time No Known Allergies Allergy Verified 01/27/23 13:39 Home Meds Home Medications Medication Instructions Recorded Confirmed metformin 500 mg tablet 500 mg PO BID 09/10/22 01/27/23 tamsulosin 0.4 mg capsule 0.4 mg PO QPM 09/10/22 01/27/23 aspirin 81 mg tablet,delayed 81 mg PO QAM 01/08/23 01/27/23 release (Adult Low Dose Aspirin) atorvastatin 80 mg tablet 80 mg PO QAM 01/08/23 01/27/23 duloxetine 60 mg capsule,delayed 60 mg PO QAM 01/08/23 01/27/23 release (Cymbalta) fluticasone furoate 200 1 inh inhalation QAM 01/08/23 01/27/23 mcg-vilanterol 25 mcg/dose inhalation powder (Breo Ellipta) metoprolol succinate 50 mg 75 mg PO QAM 01/08/23 01/27/23 tablet,extended release 24 hr omeprazole 40 mg capsule,delayed 40 mg PO QAM 01/08/23 01/27/23 release roflumilast 500 mcg tablet 500 mcg PO QAM 01/08/23 01/27/23 (Daliresp) Previous Rx's Medication Instructions Recorded lancets 30 gauge ([place]on Delica #100 ea 07/11/21 Lancets) albuterol sulfate 90 mcg/actuation 2 puff inhalation Q6H PRN 05/13/22 aerosol inhaler Shortness Of Breath Or Wheezing #18 grams blood sugar diagnostic ([place] #100 ea 07/08/22 Verio test strips) albuterol sulfate 2.5 mg/3 mL 2.5 mg (3 mL) inhalation Q4H PRN 08/01/22 (0.083 %) solution for nebulization COPD #180 mL ipratropium bromide 0.02 % 2.5 ml inhalation Q4H PRN COPD 08/01/22 solution for inhalation #180 mL azelastine 137 mcg (0.1 %) nasal 1 spray intranasal BID PRN 08/21/22 spray aerosol ALLERGIC RHINITIS #90 mL Portable Oxygen #1 ea 10/13/22 gabapentin 600 mg tablet 600 mg PO TID 30 days #90 tabs 11/03/22 levocetirizine 5 mg tablet 5 mg PO DAILY PRN allergy symptoms 01/02/23 #30 tabs umeclidinium 62.5 mcg/actuation 1 inh inhalation QPM #3 Inhalers 01/02/23 blister powder for inhalation (Incruse Ellipta) prednisone 2.5 mg tablet 7.5 mg PO DAILY 90 days #270 tabs 01/12/23 Results & Data (ED) Vital Signs Vital Signs - 24 hr 02/01/23 22:39 02/01/23 23:43 02/02/23 00:07 Temperature 36.1 C L Temperature Source Temporal Artery Scan Pulse Rate 113 H Pulse Rate [Finger] 98 H Respiratory Rate 20 20 Respiratory Effort / Characteristics Non-Labored Spontaneous Non-Labored Spontaneous Respiratory Depth Normal Normal Blood Pressure 101/65 Blood Pressure [Right Arm] 110/73 Blood Pressure Mean 77 Blood Pressure Mean [Right Arm] 85 Blood Pressure Position [Right Arm] Sitting Pulse Oximetry 95 94 95 Oxygen Delivery Method Room Air Room Air Room Air Oxygen Flow Rate 0 Sepsis Recent Fever Within 48 Hours No Sepsis New/Unexplained Change in Mental Status N/A Sepsis Action Taken by Nursing No Action Required 02/02/23 00:54 Temperature Temperature Source Pulse Rate Pulse Rate [Finger] 117 H Respiratory Rate Respiratory Effort / Characteristics Respiratory Depth Blood Pressure Blood Pressure [Right Arm] 110/73 Blood Pressure Mean Blood Pressure Mean [Right Arm] 85 Blood Pressure Position [Right Arm] Pulse Oximetry 92 Oxygen Delivery Method Room Air Oxygen Flow Rate Sepsis Recent Fever Within 48 Hours Sepsis New/Unexplained Change in Mental Status Sepsis Action Taken by Nursing Laboratory Data 02/01/23 23:42 02/01/23 23:42 Lab Results 02/01/23 02/01/23 02/01/23 Range/Units 23:42 23:42 23:42 WBC 7.22 (4.8-10.8) K/ul RBC 4.95 (4.70-6.10) M/uL Hgb 14.5 (14.0-18.0) g/dl Hct 44.5 (42.0-52.0) % MCV 89.9 (80.0-100.0) fL MCH 29.3 (25.0-34.0) pg MCHC 32.6 (32.0-36.0) g/dL RDW Std Deviation 55.0 H (36.4-46.3) fL RDW Coeff of Estela 16.8 H (11.5-14.5) % Plt Count 238 (130-400) K/uL MPV 9.0 L (9.4-12.4) fL Immature Gran % (Auto) 1.0 % Neut % (Auto) 73.0 % Lymph % (Auto) 15.1 % [place] % (Auto) 9.0 % Eos % (Auto) 1.2 % Baso % (Auto) 0.7 % Neut # (Auto) 5.27 (1.40-6.50) K/uL Lymph # (Auto) 1.09 L (1.2-3.4) K/uL [place] # (Auto) 0.65 H (0.11-0.59) K/uL Eos # (Auto) 0.09 (0-0.50) K/uL Baso # (Auto) 0.05 (0-0.2) K/uL Immature Gran # (Auto) 0.07 (0.01-0.20) K/uL PT 10.3 (9.0-12.0) Seconds INR 0.9 (0.9-1.1) VBG pH 7.30 L (7.36-7.41) VBG pCO2 65 H (38-50) mmHg VBG pO2 19 mmHg VBG HCO3 32 mmol/L VBG O2 Saturation < 60.0 % VBG Base Excess 3.6 mEq/L Sodium (136-145) mmol/L Potassium (3.5-5.1) mmol/L Chloride (98-107) mmol/L Carbon Dioxide (21-32) mmol/L Anion Gap (3-11) BUN (6-23) mg/dl Creatinine (0.6-1.4) mg/dl Est Cr Clr Drug Dosing ml/min Est GFR ( Amer) ml/min Est GFR (Non-Af Amer) ml/min BUN/Creatinine Ratio (10-20) Glucose (70-99(Fasting)) mg/dl Calcium (8.6-10.3) mg/dl Magnesium (1.7-2.4) mg/dl Troponin I High Sens (0-20) pg/ml Procalcitonin (0-0.5) ng/ml Adenovirus (PCR) (NotDetected) B. pertussis DNA (PCR) (NotDetected) B.parapertussis DNA PCR (NotDetected) C. pneumoniae DNA (PCR) (NotDetected) Coronavirus OC43 (PCR) (NotDetected) Coronavirus HKU1 (PCR) (NotDetected) Coronavirus 229E (PCR) (NotDetected) SARS-CoV-2 (PCR) (NotDetected) Coronavirus NL63 (PCR) (NotDetected) Human Metapneumovir PCR (NotDetected) Influenza Type A (PCR) (NotDetected) Influenza Type B (PCR) (NotDetected) M. pneumoniae (PCR) (NotDetected) Parainfluenza 1 (PCR) (NotDetected) Parainfluenza 2 (PCR) (NotDetected) Parainfluenza 3 (PCR) (NotDetected) Parainfluenza 4 (PCR) (NotDetected) RSV (PCR) (NotDetected) Entero/Rhino (PCR) (NotDetected) Group A Strep (Molecular) (Negative) Group A Strep (PCR) 02/01/23 02/01/23 02/01/23 Range/Units 23:42 23:42 Unknown WBC (4.8-10.8) K/ul RBC (4.70-6.10) M/uL Hgb (14.0-18.0) g/dl Hct (42.0-52.0) % MCV (80.0-100.0) fL MCH (25.0-34.0) pg MCHC (32.0-36.0) g/dL RDW Std Deviation (36.4-46.3) fL RDW Coeff of Estela (11.5-14.5) % Plt Count (130-400) K/uL MPV (9.4-12.4) fL Immature Gran % (Auto) % Neut % (Auto) % Lymph % (Auto) % [place] % (Auto) % Eos % (Auto) % Baso % (Auto) % Neut # (Auto) (1.40-6.50) K/uL Lymph # (Auto) (1.2-3.4) K/uL [place] # (Auto) (0.11-0.59) K/uL Eos # (Auto) (0-0.50) K/uL Baso # (Auto) (0-0.2) K/uL Immature Gran # (Auto) (0.01-0.20) K/uL PT (9.0-12.0) Seconds INR (0.9-1.1) VBG pH (7.36-7.41) VBG pCO2 (38-50) mmHg VBG pO2 mmHg VBG HCO3 mmol/L VBG O2 Saturation % VBG Base Excess mEq/L Sodium 144 (136-145) mmol/L Potassium 4.2 (3.5-5.1) mmol/L Chloride 108 H (98-107) mmol/L Carbon Dioxide 30 (21-32) mmol/L Anion Gap 6 (3-11) BUN 9 (6-23) mg/dl Creatinine 0.92 (0.6-1.4) mg/dl Est Cr Clr Drug Dosing 88.9 ml/min Est GFR ( Amer) 102.9 ml/min Est GFR (Non-Af Amer) 88.8 ml/min BUN/Creatinine Ratio 9.8 L (10-20) Glucose 133 H (70-99(Fasting)) mg/dl Calcium 9.4 (8.6-10.3) mg/dl Magnesium 1.9 (1.7-2.4) mg/dl Troponin I High Sens 6.9 (0-20) pg/ml Procalcitonin < 0.05 (0-0.5) ng/ml Adenovirus (PCR) (NotDetected) B. pertussis DNA (PCR) (NotDetected) B.parapertussis DNA PCR (NotDetected) C. pneumoniae DNA (PCR) (NotDetected) Coronavirus OC43 (PCR) (NotDetected) Coronavirus HKU1 (PCR) (NotDetected) Coronavirus 229E (PCR) (NotDetected) SARS-CoV-2 (PCR) (NotDetected) Coronavirus NL63 (PCR) (NotDetected) Human Metapneumovir PCR (NotDetected) Influenza Type A (PCR) (NotDetected) Influenza Type B (PCR) (NotDetected) M. pneumoniae (PCR) (NotDetected) Parainfluenza 1 (PCR) (NotDetected) Parainfluenza 2 (PCR) (NotDetected) Parainfluenza 3 (PCR) (NotDetected) Parainfluenza 4 (PCR) (NotDetected) RSV (PCR) (NotDetected) Entero/Rhino (PCR) (NotDetected) Group A Strep (Molecular) (Negative) Group A Strep (PCR) Cancelled 02/01/23 02/01/23 Range/Units Unknown Unknown WBC (4.8-10.8) K/ul RBC (4.70-6.10) M/uL Hgb (14.0-18.0) g/dl Hct (42.0-52.0) % MCV (80.0-100.0) fL MCH (25.0-34.0) pg MCHC (32.0-36.0) g/dL RDW Std Deviation (36.4-46.3) fL RDW Coeff of Estela (11.5-14.5) % Plt Count (130-400) K/uL MPV (9.4-12.4) fL Immature Gran % (Auto) % Neut % (Auto) % Lymph % (Auto) % [place] % (Auto) % Eos % (Auto) % Baso % (Auto) % Neut # (Auto) (1.40-6.50) K/uL Lymph # (Auto) (1.2-3.4) K/uL [place] # (Auto) (0.11-0.59) K/uL Eos # (Auto) (0-0.50) K/uL Baso # (Auto) (0-0.2) K/uL Immature Gran # (Auto) (0.01-0.20) K/uL PT (9.0-12.0) Seconds INR (0.9-1.1) VBG pH (7.36-7.41) VBG pCO2 (38-50) mmHg VBG pO2 mmHg VBG HCO3 mmol/L VBG O2 Saturation % VBG Base Excess mEq/L Sodium (136-145) mmol/L Potassium (3.5-5.1) mmol/L Chloride (98-107) mmol/L Carbon Dioxide (21-32) mmol/L Anion Gap (3-11) BUN (6-23) mg/dl Creatinine (0.6-1.4) mg/dl Est Cr Clr Drug Dosing ml/min Est GFR ( Amer) ml/min Est GFR (Non-Af Amer) ml/min BUN/Creatinine Ratio (10-20) Glucose (70-99(Fasting)) mg/dl Calcium (8.6-10.3) mg/dl Magnesium (1.7-2.4) mg/dl Troponin I High Sens (0-20) pg/ml Procalcitonin (0-0.5) ng/ml Adenovirus (PCR) Not Detected (NotDetected) B. pertussis DNA (PCR) Not Detected (NotDetected) B.parapertussis DNA PCR Not Detected (NotDetected) C. pneumoniae DNA (PCR) Not Detected (NotDetected) Coronavirus OC43 (PCR) Not Detected (NotDetected) Coronavirus HKU1 (PCR) Not Detected (NotDetected) Coronavirus 229E (PCR) Not Detected (NotDetected) SARS-CoV-2 (PCR) Not Detected (NotDetected) Coronavirus NL63 (PCR) Not Detected (NotDetected) Human Metapneumovir PCR Not Detected (NotDetected) Influenza Type A (PCR) Not Detected (NotDetected) Influenza Type B (PCR) Not Detected (NotDetected) M. pneumoniae (PCR) Not Detected (NotDetected) Parainfluenza 1 (PCR) Not Detected (NotDetected) Parainfluenza 2 (PCR) Not Detected (NotDetected) Parainfluenza 3 (PCR) Not Detected (NotDetected) Parainfluenza 4 (PCR) Not Detected (NotDetected) RSV (PCR) Not Detected (NotDetected) Entero/Rhino (PCR) Not Detected (NotDetected) Group A Strep (Molecular) Negative (Negative) Group A Strep (PCR) Administered Medications Discontinued Medications Albuterol (Albut/Ipratrop 3mg/0.5mg Neb 3 Ml Vial) 12 ml NEB ONE ONE; Protocol Stop: 02/02/23 00:01 Last Admin: 02/02/23 00:02 Dose: 12 ml Documented By: JOSHUA Dexamethasone Sodium Phosphate (DexamethasonePf 10 Mg/Ml Vial) 10 mg IV NOW ONE Stop: 02/02/23 00:06 Last Admin: 02/02/23 00:49 Dose: 10 mg Documented By: JOSHUA Acetaminophen (Ofirmev) 1,000 mg in 100 mls @ 400 mls/hr IV NOW STA Stop: 02/01/23 23:12 Last Infusion: 02/02/23 00:02 Dose: 0 mls/hr Documented By: Admin: 02/01/23 23:41 Dose: 400 mls/hr Documented By: JOSHUA Magnesium Sulfate/Dextrose (Magnesium Sulfate / D5w) 1 gm in 100 mls @ 100 mls/hr IV NOW STA Stop: 02/02/23 01:41 Last Admin: 02/02/23 00:49 Dose: 100 mls/hr Documented By: JOSHUA Morphine Sulfate (Morphine Sulfate 4 Mg/Ml 1 Ml Carp\\Vial) 4 mg IV NOW STA Stop: 02/02/23 00:43 Last Admin: 02/02/23 00:49 Dose: 4 mg Documented By: JOSHUA Imaging Data Radiologist's Impression: Head CT 02/01/23 23:04 Exam(s): CT HEAD Without Contrast EXAM: CT Head Without Intravenous Contrast CLINICAL HISTORY: Reason for exam: posterior headache. TECHNIQUE: Axial computed tomography images of the head/brain without intravenous contrast. CTDI is 36.9 mGy and DLP is 614.27 mGy-cm. Automated exposure control was utilized for the study. A dose lowering technique was utilized adhering to the principles of ALARA. COMPARISON: No relevant prior studies available. FINDINGS: Brain: Mild atrophy and periventricular white matter low density consistent with chronic small vessel disease and/or senescent changes. The brain is otherwise unremarkable. No acute large vessel infarct or intracranial hemorrhage is seen. Ventricles: Unremarkable. No ventriculomegaly. Bones/joints: Unremarkable. No acute fracture. Soft tissues: Unremarkable. Sinuses: Unremarkable as visualized. No acute sinusitis. Mastoid air cells: Unremarkable as visualized. No mastoid effusion. IMPRESSION: Mild atrophy and periventricular white matter low density consistent with chronic small vessel disease and/or senescent changes. The brain is otherwise unremarkable. No acute large vessel infarct or intracranial hemorrhage is seen. Electronically signed by: Jason Vega MD 02/02/23 00:11 AM Discharge Plan Visit Data Chief Complaint: Shortness of Breath/Dyspnea Stated Complaint: COUGH, NECK/BACK PAIN, SOB ED Provider: Alvarado Soni Discharge Problem: Acute hypercapnic respiratory failure, Headache Forms Stand Alone Forms: [employer] Prescriptions Prescriptions: No Action (DME) lancets [OneTouch Delica Lancets] 30 gauge misc See Rx Instructions .Route Qty: 100 3RF Rx Instructions: use once daily (DME) OneTouch Verio test strips Strip See Rx Instructions .Route Qty: 100 3RF Rx Instructions: test once daily. azelastine 137 mcg (0.1 %) aerosol,spray 1 spray intranasal BID PRN (Reason: ALLERGIC RHINITIS) Qty: 90 5RF Patient Comments: USUALLY USES EVERY DAY Rx Instructions: USE 1 SPRAY INTRANASALLY TWICE A DAY NEEDED FOR ALLERGIC RHINITIS. ADMINISTER INTO EACH NOSTRIL. gabapentin 600 mg tablet 600 mg PO TID 30 Days Qty: 90 5RF levocetirizine 5 mg tablet 5 mg PO DAILY PRN (Reason: allergy symptoms) Qty: 30 0RF Rx Instructions: Take daily for 10 days then PRN Incruse Ellipta 62.5 mcg/actuation blister with device 1 inh INH QPM Qty: 3 1RF Rx Instructions: 10 PM albuterol sulfate 90 mcg/actuation HFA aerosol inhaler 2 puff inhalation Q6H PRN (Reason: Shortness Of Breath Or Wheezing) Qty: 18 3RF prednisone 2.5 mg tablet 7.5 mg PO DAILY 90 Days Qty: 270 0RF (DME) Portable Oxygen Misc See Rx Instructions .MEDSUPPLY Qty: 1 0RF Rx Instructions: Oxygen 2 liters continuous via nasal cannula on exertion with portable concentrator. NOELLE 99 albuterol sulfate 2.5 mg /3 mL (0.083 %) solution for nebulization 2.5 mg inhalation Q4H PRN (Reason: COPD) Qty: 180 5RF ipratropium bromide 0.02 % solution 2.5 ml inhalation Q4H PRN (Reason: COPD) Qty: 180 5RF atorvastatin 80 mg tablet 80 mg PO QAM Rx Instructions: TAKE 1 TABLET BY MOUTH EVERY DAY metoprolol succinate 50 mg tablet extended release 24 hr 75 mg PO QAM omeprazole 40 mg capsule,delayed release(DR/EC) 40 mg PO QAM aspirin [Adult Low Dose Aspirin] 81 mg tablet,delayed release (DR/EC) 81 mg PO QAM duloxetine [Cymbalta] 60 mg capsule,delayed release(DR/EC) 60 mg PO QAM roflumilast [Daliresp] 500 mcg tablet 500 mcg PO QAM Patient Comments: Start using after 250 MCG tablets are done. fluticasone furoate-vilanterol [Breo Ellipta] 200-25 mcg/dose blister with device 1 inh inhalation QAM tamsulosin 0.4 mg capsule 0.4 mg PO QPM metformin 500 mg tablet 500 mg PO BID Rx Instructions: with meals Referrals Referrals: Cody Ramirez DO [Primary Care Provider] - Headache Qualifiers: Headache type: unspecified Headache chronicity pattern: acute headache Intractability: not intractable Qualified Code(s): R51.9 - Headache, unspecified
[2023-02-01 23:59] LABS: Base Excess VBG 3.6 mEq/L; HCO3 VBG 32 mmol/L; Oxygen Saturation VBG < 60.0 %; PCO2 VBG 65 mmHg (38-50); PO2 VBG 19 mmHg
[2023-02-02] MEDS ORDERED: ALBUT/IPRATROP 3MG/0.5MG NEB 3 ML VIAL NEB ONE
[2023-02-02 00:03] LABS: Basophils # (auto) 0.05 K/uL (0-0.2); Basophils % (auto) 0.7 %; Eosinophils # (auto) 0.09 K/uL (0-0.50); Eosinophils % (auto) 1.2 %; Hematocrit (blood only) 44.5 % (42.0-52.0); Hemoglobin 14.5 g/dl (14.0-18.0); Immature Granulocytes # (auto) 0.07 K/uL (0.01-0.20); Lymphocytes # (auto) 1.09 K/uL (1.2-3.4); Lymphocytes % (auto) 15.1 %; Mean Corpuscular Hemoglobin 29.3 pg (25.0-34.0); Mean Corpuscular Hgb Conc 32.6 g/dL (32.0-36.0); Mean Corpuscular Volume 89.9 fL (80.0-100.0); Monocytes # (auto) 0.65 K/uL (0.11-0.59); Neutrophils # (auto) 5.27 K/uL (1.40-6.50); Platelet Count 238 K/uL (130-400); RDW Coefficient of Variation 16.8 % (11.5-14.5); Red Blood Count 4.95 M/uL (4.70-6.10); White Blood Count 7.22 K/ul (4.8-10.8)
[2023-02-02] MEDS ORDERED: dexAMETHasone**PF** 10 MG/ML VIAL IV ONE (00:05)
--- NOTE | 2023-02-02 00:11 | CT Scan Report ---
Exam(s): CT HEAD Without Contrast EXAM: CT Head Without Intravenous Contrast CLINICAL HISTORY: Reason for exam: posterior headache. TECHNIQUE: Axial computed tomography images of the head/brain without intravenous contrast. CTDI is 36.9 mGy and DLP is 614.27 mGy-cm. Automated exposure control was utilized for the study. A dose lowering technique was utilized adhering to the principles of ALARA. COMPARISON: No relevant prior studies available. FINDINGS: Brain: Mild atrophy and periventricular white matter low density consistent with chronic small vessel disease and/or senescent changes. The brain is otherwise unremarkable. No acute large vessel infarct or intracranial hemorrhage is seen. Ventricles: Unremarkable. No ventriculomegaly. Bones/joints: Unremarkable. No acute fracture. Soft tissues: Unremarkable. Sinuses: Unremarkable as visualized. No acute sinusitis. Mastoid air cells: Unremarkable as visualized. No mastoid effusion. IMPRESSION: Mild atrophy and periventricular white matter low density consistent with chronic small vessel disease and/or senescent changes. The brain is otherwise unremarkable. No acute large vessel infarct or intracranial hemorrhage is seen. Electronically signed by: Jason Vega MD 02/02/23 00:11 AM
[2023-02-02 00:12] LABS: Adenovirus PCR Not Detected (NotDetected); Bordetella parapertussis PCR Not Detected (NotDetected); Bordetella pertussis PCR Not Detected (NotDetected); Chlamydia pneumoniae PCR Not Detected (NotDetected); Coronavirus 229E PCR Not Detected (NotDetected); Coronavirus CoV-2 (COVID19)PCR Not Detected (NotDetected); Coronavirus HKU1 PCR Not Detected (NotDetected); Coronavirus NL63 PCR Not Detected (NotDetected); Coronavirus OC43PCR Not Detected (NotDetected); Human Metapneumovirus PCR Not Detected (NotDetected); Influenza A PCR Not Detected (NotDetected); Influenza B PCR Not Detected (NotDetected); Mycoplasma pneumoniae PCR Not Detected (NotDetected); Parainfluenza Virus 1 PCR Not Detected (NotDetected); Parainfluenza Virus 2 PCR Not Detected (NotDetected); Parainfluenza Virus 3 PCR Not Detected (NotDetected); Parainfluenza Virus 4 PCR Not Detected (NotDetected); Respiratory Syncytial VirusPCR Not Detected (NotDetected); Rhinovirus/Enterovirus PCR Not Detected (NotDetected)
[2023-02-02 00:20] LABS: BUN Creatinine Ratio 9.8 (10-20); Calcium 9.4 mg/dl (8.6-10.3); Creatinine Clr Calc Pharmacy 88.9 ml/min; Est GFR (African American) 102.9 ml/min; Est GFR (Non-African American) 88.8 ml/min; Magnesium 1.9 mg/dl (1.7-2.4); Potassium 4.2 mmol/L (3.5-5.1)
[2023-02-02 00:26] LABS: Troponin I High Sensitivity 6.9 pg/ml (0-20)
[2023-02-02] MEDS ORDERED: MoRPHine SULFATE 4 MG/ML 1 ML CARP\\VIAL IV STA (00:42)
[2023-02-02] MEDS ORDERED: MAGNESIUM SULFATE / D5W 1 GM/100 ML BAG IV STA (00:42)
[2023-02-02 00:46] LABS: INR 0.9 (0.9-1.1); Prothrombin Time 10.3 Seconds (9.0-12.0)
--- NOTE | 2023-02-02 01:57 | History & Physical Report ---
Date of Service February 02, 2023 Assessment & Plan (1) Acute hypercapnic respiratory failure: Plan: 62 y/o M w/ PmHx non-small cell lung cancer stage IV, BPH, Prostate cancer s/p chemo/radiation, STEMI, CAD, severe COPD Gold classification D, avascular necrosis of b/l hip, vitamin B12 deficiency, allergic rhinitis, GERD, dyslipidemia, T2DM, neuroapthy, anxiety admitted for acute COPD exacerbation. Acute hypercapnic respiratory failure/COPD Class D GOLD: -PFT from 07/30/22 show severe COPD. -Worsening SoB, not using any home O2. -VBG pH 7.30, CO2 65. procal negative. CBC unremarkable. -CXR w/o evidence for pneumonia. Respiratory panel negative. -01/06 patient decreased prednisone from 10mg daily to 7.5mg daily. -No other obvious triggers for current exacerbation. Usually 4 exacerbations per year. -Given 10mg dexamethasone, mg sulfate, albuterol nebulizer treatment in ED. -Continue on Duoneb q6, Pulmicort 0.5mg BID, Perforomist 20mcg neb BID, Mucinex 1.2g BID. -Continue home prednisone 7.5mg, if no improvement can increase back up to 10mg or 40mg for acute exacerbation. However patient would benefit at trying to contain current exacerbation with as minimal oral steroid use as possible given attempt to wean off chronic steroid use. -No evidence of infection on CXR, can add Azithromycin for anti-inflammatory effect if above regimen not effective. -Monitor on med/tele. Headache: -Pain/tenderness across posterior neck. -Head CT negative for acute process, tender to palpation. -Most likely MSK in nature. -Continue Tylenol, can trial Fioricet. -Ordered lidocaine patch. CAD/HTN/Hx of STEMI/Dyslipdemia: -Continue home ASA 81mg daily, atorvastatin, metoprolol. Neuropathy: -Continue home gabapentin. GERD: -Continue home omeprazole. Allergic rhinitis: -Continue home azelastine. T2DM: -A1c 6.9 this month, 133 on arrival. -Can add insulin regimen if glucoses become elevated. History of non-small cell lung cancer: -follows with oncology outpatient. Noted. History of prostate cancer: -Follows with urology outpatient. Noted. Depression/Anxiety: -continue home Duloxetine. F/E/N/GI: Carb consistent T2DM. DVT Prophylaxis: Lovenox 40mg qAM. Code status: DNR, intubation if not on ventilator chronically. Dispo: Med/tele (2) Headache: (3) Neuropathy: (4) Anxiety: (5) Non-small cell lung cancer: (6) Allergic rhinitis: (7) GERD (gastroesophageal reflux disease): (8) Presence of drug coated stent in left circumflex coronary artery: (9) Dyslipidemia, goal LDL below 70: (10) COPD, group D, by GOLD 2017 classification: (11) Hypertension: (12) Type 2 diabetes mellitus: (13) CAD (coronary artery disease): (14) Prostate cancer: (15) STEMI (ST elevation myocardial infarction): (16) Depression: (17) History of lung cancer: History of Present Illness Chief Complaint: Shortness of breath Primary Care Provider: Cody Ramirez DO Parisi is a 62 y/o M w/ Pmhx non-small cell lung cancer stage IV, BPH, Prostate cancer s/p chemo/radiation, STEMI, CAD, severe COPD Gold classification D, avascular necrosis of b/l hip, vitamin B12 deficiency, allergic rhinitis, GERD, dyslipidemia, T2DM, neuroapthy, anxiety coming into the emergency department for worsening shortness of breath over the past 2 days. Patient states he has a long history of COPD and feeling short of breath however it was more recently worsened even at rest over the past 2 days. It got to a point where he felt he couldn't breathe very well and so decided to come to the ED. He is supposed to use home oxygen with exertion however he states that he has not used it since he has not received the small portable oxygen, only 4 tanks that are in his daughters room. He denies any fevers, chills, chest pain, diarrhea, dysuria however does endorse increased frequency. Patient also endorses a headache at the back of the neck area for the past 2 days as well. He has not tried any tylenol or ibuprofen for the headache. In the ED he was given Tylenol 1g IV, albuterol nebulizer, 10mg dexamethasone, magnesium sulfate, and morphine 4mg. CBC unremarkable, VBG acidotic 7.30, CO2 65, procal negative, respiratory panel negative. CXR with some mild pulmonary interstitial markings but otherwise unremarkable for consolidations. CT head without any acute processes. Allergies Allergy/AdvReac Type Severity Reaction Status Date / Time No Known Allergies Allergy Verified 02/02/23 02:03 Home Medications Medication Instructions Recorded Confirmed Type lancets 30 gauge (Tom Doshi #100 ea 07/11/21 01/27/23 Rx Lancets) albuterol sulfate 90 mcg/actuation 2 puff inhalation Q6H PRN 05/13/22 02/02/23 Rx aerosol inhaler Shortness Of Breath Or Wheezing #18 grams blood sugar diagnostic (Kiranuch #100 ea 07/08/22 01/27/23 Rx Verio test strips) albuterol sulfate 2.5 mg/3 mL 2.5 mg (3 mL) inhalation Q4H PRN 08/01/22 02/02/23 Rx (0.083 %) solution for nebulization COPD #180 mL ipratropium bromide 0.02 % 2.5 ml inhalation Q4H PRN COPD 08/01/22 02/02/23 Rx solution for inhalation #180 mL azelastine 137 mcg (0.1 %) nasal 1 spray intranasal BID PRN 08/21/22 02/02/23 Rx spray aerosol ALLERGIC RHINITIS #90 mL metformin 500 mg tablet 500 mg PO BID 09/10/22 02/02/23 History Portable Oxygen #1 ea 10/13/22 01/27/23 Rx gabapentin 600 mg tablet 600 mg PO TID 30 days #90 tabs 11/03/22 02/02/23 Rx umeclidinium 62.5 mcg/actuation 1 inh inhalation QPM #3 Inhalers 01/02/23 02/02/23 Rx blister powder for inhalation (Incruse Ellipta) aspirin 81 mg tablet,delayed 81 mg PO QAM 01/08/23 02/02/23 History release (Adult Low Dose Aspirin) atorvastatin 80 mg tablet 80 mg PO QAM 01/08/23 02/02/23 History duloxetine 60 mg capsule,delayed 60 mg PO QAM 01/08/23 02/02/23 History release (Cymbalta) fluticasone furoate 200 1 inh inhalation QAM 01/08/23 02/02/23 History mcg-vilanterol 25 mcg/dose inhalation powder (Breo Ellipta) metoprolol succinate 50 mg 75 mg PO QAM 01/08/23 02/02/23 History tablet,extended release 24 hr omeprazole 40 mg capsule,delayed 40 mg PO QAM 01/08/23 02/02/23 History release roflumilast 500 mcg tablet 500 mcg PO QAM 01/08/23 02/02/23 History (Daliresp) prednisone 2.5 mg tablet 7.5 mg PO DAILY 90 days #270 tabs 01/12/23 02/02/23 Rx Past Med/Surg History Medical History Anxiety Asthma BPH with elevated PSA CAD (coronary artery disease) S/p stent 2020 S/p YARA to LCx 01/15/2021 Chronic obstructive pulmonary disease Depression Emphysema lung GERD (gastroesophageal reflux disease) H/O pneumothorax History of home oxygen therapy "USED WHEN I FIRST HAD IT, NOW I DON'T THINK IT HELPS, SO I DON'T USE IT VERY OFTEN" History of lung cancer (2011) NON SMALL CELL LUNG CANCER - STAGE IV DX 2011-LEFT LOBE/NO SURGERY/RADIATION/CHEMO FEEDING TUBE PRESENT FOR 1.5 YEARS DURING THIS TIME History of pulmonary embolus (PE) 2016-NO ISSUES SINCE History of tachycardia 01/06/23, [facility]. Pt stated the doctor increased his metoprolol to 75mg daily. Hyperlipidemia Hypertension Neuropathy Prostate cancer 2021; RADIATION TREATMENT, NO SX. Severe chronic obstructive pulmonary disease Evaluated for lung transplant, pulmonary function not sufficiently low at this time SOB (shortness of breath) on exertion STEMI (ST elevation myocardial infarction) (01/2021) 2020, [facility]-"HAVING PAIN AND DIDN'T FEEL WELL"; FOLLOWS W/ [place] [facility] Stomach ulcer HX -UNDER CONTROL Type 2 diabetes mellitus Surgical History History of cardiac cath W/ X1 STENT- 2020- FOLLOWS W/ [place] [facility] History of colonoscopy History of esophagogastroduodenoscopy (EGD) History of lung surgery STENT TO [id number]? History of prostate biopsy (01/01/22) History of vascular access device PORT PLACEMENT-UPPER LEFT IN PLACE-UNSURE OF TYPE OF PORT Hx of inguinal hernia surgery S/P cystoscopy with ureteral stent placement S/P REMOVAL STENT ALSO S/P laparoscopic cholecystectomy Family History Mother Coronary heart disease Father , age 90 COPD (chronic obstructive pulmonary disease) Diabetes Aunt Cancer Uncle Diabetes Brother Hypertension Daughter No problems noted. Brother No problems noted. Other No family history of bleeding disorder Denies family history of Ovarian cancer Prostate cancer Breast cancer Colorectal cancer Social History Smoking Status: Former smoker Tobacco Type: Cigarettes packs per day: 1; Cigarettes Per Day: does smoke occ cigar when golfing; Smoking End Date: 2011; Second Hand Exposure: Yes (HX-WORK); Do You Dip or Chew Tobacco: No; Hx Alcohol Use: No Hx Substance Use: No Preferred Language: Montserratian Communication Ability: Effective Visual Impairment: No Limitations Hearing Ability: Normal Pit Tanner Required: No Beliefs That Will Affect Care: None marital status: Single marital status details: but has 1 daughter Current Living Situation: Alone Current Living Situation Comment: BROTHER AND STEP FATHER TO HELP current occupational status: employed and disabled current occupation: 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 Physical Exam Constitutional: WD/WN, vitals as above Upon entering room patient in tripod position but not in acute distress. Eyes: PERRL, conjunctivae normal, anicteric sclerae Respiratory: normal respiratory effort, lungs clear to auscultation Cardiovascular: Rate/Rhythm: + tachycardic Heart Sounds: normal S1 and normal S2 Gastrointestinal (Abdomen): normal bowel sounds, soft, nontender, no hepatosplenomegaly Musculoskeletal: Hypertonicity at the suboccipital to C7 paraspinal muscles, improved tonicity with suboccipital soft tissue technique. Psychiatric: A+Ox3, euthymic affect Results & Data Results & Data Vital Signs (Past 12 Hours) Vital Signs Temp Pulse Pulse Resp BP BP Pulse Ox 02/02/23 00:54 117 H 110/73 92 02/02/23 00:07 95 02/01/23 23:43 98 H 20 110/73 94 02/01/23 22:39 36.1 C L 113 H 20 101/65 95 O2 Del Method O2 Flow Rate 02/02/23 00:54 Room Air 02/02/23 00:07 Room Air 0 02/01/23 23:43 Room Air 02/01/23 22:39 Room Air Supervising Physician Co-Signing Physician Notes Attending addendum: I have physically seen this patient, have supervised the medical residents activities, and agree with the H&P unless as otherwise noted. Assessment and Plan: Acute respiratory failure with hypoxia and hypercapnia/COPD exacerbation- Viral respiratory panel negative Chest x-ray without acute episodes of pneumonia Had a recent decrease in prednisone from 10 to 7.5 mg daily He was given dexamethasone 10 mg by the ED IV, magnesium sulfate IV and a albuterol nebulizer Duonebs every 4 hours while awake and every 2 hours when necessary. Pulmicort Respules 0.5 mg inhaled twice daily Perforomist 20 mcg neb twice daily Mucinex 12 mg p.o. twice daily Prednisone 7.5 mg daily as noted CAD/hypertension/history of STEMI- Continue aspirin and metoprolol Dyslipidemia- Continue atorvastatin Neuropathy- Continue gabapentin GERD- Change omeprazole to pantoprazole per formulary interchange Remaining orders and notations as noted Resident Activity Tracking Resident Involvement: Resident Care Provided Care Provided: Adult Hospital Medicine (2) Headache Headache chronicity pattern: acute headache Headache type: unspecified Intractability: not intractable Qualified Code(s): R51.9 - Headache, unspecified (7) GERD (gastroesophageal reflux disease) Esophagitis presence: esophagitis presence not specified Qualified Code(s): K21.9 - Gastro-esophageal reflux disease without esophagitis
[2023-02-02] MEDS ORDERED: AZELASTINE HCL 0.1% NASAL 200 SPRAYS/27,400 MCG BTL NAE PRN (03:48)
[2023-02-02] MEDS ORDERED: ACETAMINOPHEN 325 MG TAB PO PRN (03:48)
[2023-02-02] MEDS ORDERED: POLYETHYLENE (MIRALAX) 17 GM PACK PO PRN (03:48)
[2023-02-02] MEDS: KETOROLAC TROMETHAMINE 15 MG/ML VIAL IV PRN (04:54)
[2023-02-02 07:06] LABS: Hematocrit (blood only) 42.9 % (42.0-52.0); Hemoglobin 14.5 g/dl (14.0-18.0); Mean Corpuscular Hgb Conc 33.8 g/dL (32.0-36.0); Mean Corpuscular Volume 88.8 fL (80.0-100.0); Mean Platelet Volume 9.6 fL (9.4-12.4); Platelet Count 240 K/uL (130-400); RDW Coefficient of Variation 16.8 % (11.5-14.5); RDW Standard Deviation 54.1 fL (36.4-46.3); Red Blood Count 4.83 M/uL (4.70-6.10); White Blood Count 8.06 K/ul (4.8-10.8)
[2023-02-02 07:13] LABS: Base Excess VBG -0.6 mEq/L; HCO3 VBG 25 mmol/L; Oxygen Saturation VBG 75.4 %; PCO2 VBG 46 mmHg (38-50); PO2 VBG 46 mmHg; pH VBG 7.35 (7.36-7.41)
[2023-02-02] MEDS: FORMOTEROL 20 MCG/2 ML VIAL NEB SCH ×2 (07:23→19:14)
[2023-02-02] MEDS: BUDESONIDE 0.5 MG/2 ML VIAL (PULMICORT) NEB SCH ×2 (07:24→19:13)
[2023-02-02] MEDS: ALBUT/IPRATROP 3MG/0.5MG NEB 3 ML VIAL INH SCH ×3 (07:24→19:14)
[2023-02-02 07:27] LABS: Basophils # (auto) 0.03 K/uL (0-0.2); Basophils % (auto) 0.4 %; Echinocytes 1+; Eosinophils # (auto) 0.01 K/uL (0-0.50); Eosinophils % (auto) 0.1 %; Immature Granulocytes # (auto) 0.08 K/uL (0.01-0.20); Lymphocytes % (auto) 3.7 %; Monocytes # (auto) 0.11 K/uL (0.11-0.59); Monocytes % (auto) 1.4 %; Neutrophils # (auto) 7.53 K/uL (1.40-6.50); Neutrophils % (auto) 93.4 %; Ovalocytes 1+; Polychromasia 1+
[2023-02-02 07:31] LABS: BUN Creatinine Ratio 13.6 (10-20); Calcium 8.9 mg/dl (8.6-10.3); Creatinine Clr Calc Pharmacy 100.3 ml/min; Est GFR (African American) 110.4 ml/min; Est GFR (Non-African American) 95.3 ml/min; Magnesium 1.9 mg/dl (1.7-2.4)
--- NOTE | 2023-02-02 07:31 | XRay Report ---
SINGLE VIEW CHEST CLINICAL HISTORY: Dyspnea. FINDINGS: 2 AP, portable, upright chest radiographs are compared to study dated 10/02/2022 and correl ated with chest CT dated 01/06/2023. A left subclavian central venous infusion port is unchanged in pos ition. The heart is mildly enlarged noting atherosclerotic calcification of the thoracic aorta. The p ulmonary vasculature is noncongested. Advanced emphysema and chronic interstitial thickening is simil ar to previous. There are increasing airspace opacities at the left lung base. No large pleural effus ion or pneumothorax is identified. The skeletal structures are osteopenic. There are chronic/healed b ilateral rib fractures. IMPRESSION: 1. Mild cardiomegaly and emphysema. 2. There are increasing airspace opacities at the left lung base. This could represent atelectasis ve rsus pneumonia/aspiration pneumonitis. Clinical correlation will be required and radiographic follow- up to resolution is recommended. ACT 112: Negative or not required by law. Electronically signed by: Jorge Alberto Webber M.D. 02/02/2023 7:29 AM
[2023-02-02] MEDS: predniSONE 2.5 MG TAB PO SCH (09:05)
[2023-02-02] MEDS: DULoxetine HCL 60 MG CAP PO SCH (09:08)
[2023-02-02] MEDS: ASPIRIN 81 MG ECTAB PO SCH (09:09)
[2023-02-02] MEDS: GABAPENTIN 600 MG TAB PO SCH ×3 (09:09→20:07)
[2023-02-02] MEDS: ATORVASTATIN 40 MG TAB PO SCH (09:09)
[2023-02-02] MEDS: guaiFENesin 600 MG TABCR PO SCH ×2 (09:10→20:07)
[2023-02-02] MEDS: PANTOprazole 40 MG TAB PO SCH (09:11)
[2023-02-02] MEDS: ENOXAPARIN INJ 40 MG/0.4 ML SYR SQ SCH (09:11)
[2023-02-02] MEDS: METOPROLOL SUCC 25MG EXT REL TAB PO SCH (09:11)
[2023-02-02] MEDS: LIDOCAINE 5% 1 PATCH TD SCH (09:11)
--- NOTE | 2023-02-02 13:25 | Hospitalist Progress Note ---
Date of Service February 02, 2023 Assessment & Plan (1) COPD, group D, by GOLD 2017 classification: Plan: Advanced COPD with emphysema, hypoxic respiratory failure (with activity) and h/o non-small cell lung ca Acute on chronic/stable - Admitted with hypercapnic respiratory failure based on vbg, however, pt has not required any respiratory interventions such as bipap - He remains stable on room air with a most recent pulse ox of 95% - Continue tapering Prednisone, currently on 7.5mg daily - Continue Duonebs QID, Pulmicort and Perforomist, and Mucinex - Goal pulse ox 88-92% - per Dr. Alicia's last note, he is to be wearing 2L O2 with exertion but doesn't wear it due to lack of portable concentrator - Could look into providing this for patient prior to his discharge (2) Headache: Plan: Acute/unstable - Patient reports seldom gets headaches but does have pain in the base/back of his neck - Suspect that this is MSK and is the cause of his headache - Continue Lidoderm patches, increase APAP to 1g TID prn, and Toradol - Can provide kpad to back of neck also (3) Abnormal gastrointestinal PET scan: Plan: Acute/stable - 2.5 cm hypermetabolic focus seen in the gastric fundus - Underwent EGD/colo - found to have a bezoar - Scheduled for gastric emptying study at the end of February 2023 (4) Throat burning: Plan: Acute - Previous h/o thrush, nothing noted in posterior oropharynx on exam - Discussed with speech therapy, will place formal consult - Consider nystatin swish and swallow based on their eval (5) Type 2 diabetes mellitus: Plan: Chronic/stable - NIDDM - Controlled with Metformin 500mg BID at home - Hemoglobin a1c 6.9% 01/12/23 - Resume Metformin, continue diabetic diet, check BSG AC and HS Plan CBC, CMP reviewed, stable, no acute abnormalities requiring intervention. No need for repeat labs. Anticipate home tomorrow, can f/u as scheduled with specialists and for procedures. Plan d/w Dr. Ludwig. Admission and Anticipated Discharge Date Admission Date: February 02, 2023 Subjective Patient was seen on daily rounds this morning. Reports that his breathing is still short which has been an ongoing issue given his advanced copd and h/o lung cancer. He also continues to endorse headache and neck pain. Was asking if he could have something more for pain. Mentioning some lower throat "itching" and wasn't sure if he could have recurrence of thrush. Denies n/v/d, f/c, or gu symptoms. Physical Exam Physical Exam: GENERAL: 62 yo Well-developed, well-nourished M. AAOx4. NAD. LUNGS: Nonlabored/no conversational dyspnea. Decreased air exchange with diminished breath sounds throughout. CARDIOVASCULAR: Regular rate and rhythm. MSK: tenderness along spinous processes and paravertebral muscles of cervical spine. FROM maintained. Results & Data Results & Data Vital Signs (Past 12 Hours) Vital Signs Temp Pulse Pulse Pulse Resp BP Pulse Ox 02/02/23 12:00 35.4 C L 106 H 22 98/64 L 95 02/02/23 08:00 35.6 C L 105 H 22 96/64 L 94 02/02/23 07:29 100 H 02/02/23 07:24 102 H 20 94 02/02/23 03:56 108 H 02/02/23 04:00 02/02/23 04:00 35.9 C L 108 H 20 91/64 L 93 02/02/23 02:55 103 H 02/02/23 03:09 104 H 20 93 02/02/23 02:12 107 H 20 110/73 94 O2 Del Method 02/02/23 12:00 Room Air 02/02/23 08:00 Room Air 02/02/23 07:29 02/02/23 07:24 Room Air 02/02/23 03:56 02/02/23 04:00 Room Air 02/02/23 04:00 Room Air 02/02/23 02:55 02/02/23 03:09 Room Air 02/02/23 02:12 Room Air Laboratory Results 02/02/23 06:09 02/02/23 06:09 PG Care Time/CCT Total # of Minutes Spent Total Time Spent with Patient: Total time spent is greater than 50% in coordination of care (as documented) at patient's floor/unit and/or counseling patient: Coding Level of Care Code None Diagnoses COPD, group D, by GOLD 2017 classification J44.9 Headache R51.9 Headache chronicity pattern: acute headache Headache type: unspecified Intractability: not intractable Abnormal gastrointestinal PET scan R94.8 Throat burning R07.0 Type 2 diabetes mellitus E11.9 (2) Headache Headache chronicity pattern: acute headache Headache type: unspecified Intractability: not intractable Qualified Code(s): R51.9 - Headache, unspecified
[2023-02-02] MEDS ORDERED: GLUCOSE 40% GEL 15 GM TUBE PO PRN (13:30)
[2023-02-02] MEDS ORDERED: GLUCAGON FOR INJ 1 MG VIAL SQ PRN (13:30)
[2023-02-02] MEDS ORDERED: GLUCOSE 10 TAB/TUBE PO PRN (13:30)
[2023-02-02] MEDS ORDERED: CARBOHYDRATES FOR HYPOGLYCEMIA PO PRN (13:30)
[2023-02-02] MEDS ORDERED: DEXTROSE 50% 50 ML SYRINGE IV PRN (13:30)
[2023-02-02] MEDS: metFORMIN HCL 500 MG TAB PO SCH (17:25)
[2023-02-02] MEDS: TAMSULOSIN HCL 0.4 MG CAP PO SCH (20:08)
[2023-02-02] MEDS: ACETAMINOPHEN 500 MG TAB PO PRN (20:11)
[2023-02-03] MEDS: ALBUT/IPRATROP 3MG/0.5MG NEB 3 ML VIAL INH SCH ×2 (00:20→07:42)
[2023-02-03 06:59] LABS: HCO3 VBG 27 mmol/L; Oxygen Saturation VBG 93.6 %; PCO2 VBG 39 mmHg (38-50); PO2 VBG 65 mmHg; pH VBG 7.45 (7.36-7.41)
[2023-02-03 07:29] LABS: BUN Creatinine Ratio 17.7 (10-20); Calcium 8.6 mg/dl (8.6-10.3); Creatinine Clr Calc Pharmacy 102.6 ml/min; Est GFR (African American) 111.5 ml/min; Est GFR (Non-African American) 96.2 ml/min; Potassium 4.1 mmol/L (3.5-5.1)
[2023-02-03] MEDS: BUDESONIDE 0.5 MG/2 ML VIAL (PULMICORT) NEB SCH ×2 (07:41→19:26)
[2023-02-03] MEDS: FORMOTEROL 20 MCG/2 ML VIAL NEB SCH ×2 (07:41→19:26)
[2023-02-03] MEDS: metFORMIN HCL 500 MG TAB PO SCH ×2 (07:55→16:53)
[2023-02-03] MEDS: predniSONE 2.5 MG TAB PO SCH (07:55)
[2023-02-03] MEDS: guaiFENesin 600 MG TABCR PO SCH ×2 (07:55→20:10)
[2023-02-03] MEDS: ATORVASTATIN 40 MG TAB PO SCH (07:56)
[2023-02-03] MEDS: PANTOprazole 40 MG TAB PO SCH (07:56)
[2023-02-03] MEDS: DULoxetine HCL 60 MG CAP PO SCH (07:56)
[2023-02-03] MEDS: GABAPENTIN 600 MG TAB PO SCH ×3 (07:56→20:10)
[2023-02-03] MEDS: ASPIRIN 81 MG ECTAB PO SCH (07:56)
[2023-02-03] MEDS: LIDOCAINE 5% 1 PATCH TD SCH (07:57)
[2023-02-03] MEDS: ENOXAPARIN INJ 40 MG/0.4 ML SYR SQ SCH (07:58)
[2023-02-03] MEDS: METOPROLOL SUCC 25MG EXT REL TAB PO SCH (08:13)
[2023-02-03 10:28] LABS: Basophils # (auto) 0.03 K/uL (0-0.2); Basophils % (auto) 0.3 %; Hematocrit (blood only) 39.8 % (42.0-52.0); Hemoglobin 13.2 g/dl (14.0-18.0); Immature Granulocytes # (auto) 0.06 K/uL (0.01-0.20); Immature Granulocytes % (auto) 0.6 %; Lymphocytes % (auto) 8.7 %; Mean Corpuscular Hemoglobin 28.8 pg (25.0-34.0); Mean Corpuscular Hgb Conc 33.2 g/dL (32.0-36.0); Mean Corpuscular Volume 86.7 fL (80.0-100.0); Mean Platelet Volume 9.6 fL (9.4-12.4); Monocytes % (auto) 6.8 %; Neutrophils # (auto) 8.63 K/uL (1.40-6.50); Neutrophils % (auto) 83.6 %; Platelet Count 246 K/uL (130-400); RDW Standard Deviation 53.5 fL (36.4-46.3); Red Blood Count 4.59 M/uL (4.70-6.10); White Blood Count 10.32 K/ul (4.8-10.8)
--- NOTE | 2023-02-03 10:55 | Electrocardiogram Report ---
Test Reason : Blood Pressure : / mmHG Vent. Rate : 098 BPM Atrial Rate : 098 BPM P-R Int : 170 ms QRS Dur : 078 ms QT Int : 348 ms P-R-T Axes : 074 078 080 degrees QTc Int : 444 ms Normal sinus rhythm Nonspecific ST abnormality Abnormal ECG When compared with ECG of 06-JAN-2023 14:02, No significant change was found Confirmed by Todd Tom ([id number]) on 02/03/2023 10:55:10 AM Referred By: REFERRED SELF Confirmed By:Todd Tom
--- NOTE | 2023-02-03 11:12 | Hospitalist Progress Note ---
Date of Service February 03, 2023 Assessment & Plan (1) COPD, group D, by GOLD 2017 classification: Plan: Advanced COPD with emphysema, hypoxic respiratory failure (with activity) and h/o non-small cell lung ca Acute on chronic/stable - Admitted with hypercapnic respiratory failure based on vbg, however, pt has not required any respiratory interventions such as bipap - He remains stable on room air with a most recent pulse ox of 95% - Continue tapering Prednisone, currently on 7.5mg daily - Continue pulmonary toilet with Pulmicort and Perforomist, and Mucinex - Goal pulse ox 88-92% - per Dr. Alicia's last note, he is to be wearing 2L O2 with exertion but doesn't wear it due to lack of SMALL portable concentrator - This was looked into, these devices are not covered by insurance - Pt admits that he is NOT wearing his O2 with activity due to the size of the concentrators, reiterated that he is risking respiratory failure which could lead to cardiopulmonary arrest, he verbalized understanding of this - Today now with productive cough, check CT chest w/o contrast, add Levaquin 750mg daily, and send sputum for culture and gram stain - Change Duonebs to Xopenex/Atrovent d/t tachycardia (2) Headache: Plan: Acute/unstable - Patient reports seldom gets headaches but does have pain in the base/back of his neck - Suspect that this is MSK and is the cause of his headache - Continue Lidoderm patches, increase APAP to 1g TID prn, and Toradol - This seems to have resolved (3) Throat burning: Plan: Acute - Previous h/o thrush, exam today does note plaques c/w thrush - Discussed with speech therapy, formal consult placed, but given evidence of thrush, will hold off on any instrumental assessment today - Start on Nystatin 5mL swish and swallow (4) Abnormal gastrointestinal PET scan: Plan: Acute/stable - 2.5 cm hypermetabolic focus seen in the gastric fundus - Underwent EGD/colo - found to have a bezoar - Scheduled for gastric emptying study February 25, 2023 (5) Type 2 diabetes mellitus: Plan: Chronic/stable - NIDDM - Controlled with Metformin 500mg BID at home - Hemoglobin a1c 6.9% 01/12/23 - Resume Metformin, continue diabetic diet, check BSG AC and HS Plan D/c telemetry. Patient states that he is "not ready to be discharged today." Will plan as outlined above, revisit discharge tomorrow. Plan d/w Dr. Ludwig. Admission and Anticipated Discharge Date Admission Date: February 02, 2023 Subjective Patient was seen on daily rounds this morning. Continues to c/o throat irritation and shortness of breath. Now stating that he feels jittery/shaky today but just prior to my arrival he had received a breathing treatment (Duoneb). He does not mention headache today and refused lidoderm patch per nursing. He is now coughing up pink-angelia tinged sputum. Remains afebrile. Physical Exam Physical Exam: GENERAL: 62 yo Well-developed, well-nourished M. AAOx4. NAD. MOUTH: does have white plaques throughout mouth c/w thrush LUNGS: Nonlabored/no conversational dyspnea. Decreased air exchange with dim inished breath sounds throughout. CARDIOVASCULAR: Tachycardic w/o m/g/r Results & Data Results & Data Vital Signs (Past 12 Hours) Vital Signs Temp Pulse Pulse Pulse Resp BP Pulse Ox 02/03/23 08:57 02/03/23 08:10 36.3 C L 113 H 20 108/70 95 02/03/23 07:42 116 H 20 91 02/03/23 07:41 113 H 02/03/23 04:23 36.4 C L 113 H 20 103/67 91 02/03/23 00:20 113 H 18 100 02/03/23 00:02 114 H 102/67 95 02/02/23 23:18 36.5 C 118 H 18 92/60 L 90 O2 Del Method 02/03/23 08:57 Room Air 02/03/23 08:10 Room Air 02/03/23 07:42 Room Air 02/03/23 07:41 02/03/23 04:23 Room Air 02/03/23 00:20 Room Air 02/03/23 00:02 Room Air 02/02/23 23:18 Room Air Laboratory Results 02/03/23 06:36 02/03/23 06:36 PG Care Time/CCT Total # of Minutes Spent Total Time Spent with Patient: Total time spent is greater than 50% in coordination of care (as documented) at patient's floor/unit and/or counseling patient: Coding Level of Care Code 88984 SUB INP/OBS CARE MIN Diagnoses COPD, group D, by GOLD 2017 classification J44.9 Headache R51.9 Headache chronicity pattern: acute headache Headache type: unspecified Intractability: not intractable Throat burning R07.0 Abnormal gastrointestinal PET scan R94.8 Type 2 diabetes mellitus E11.9 (2) Headache Headache chronicity pattern: acute headache Headache type: unspecified Intractability: not intractable Qualified Code(s): R51.9 - Headache, unspecified
--- NOTE | 2023-02-03 11:52 | CT Scan Report ---
CT chest diagnostic wo con CT DOSE: 227.54 mGy.cm HISTORY: Shortness of breath. worsening dyspnea, productive cough TECHNIQUE: Multiaxial CT images of the chest were performed without contrast. A dose lowering techni que was utilized adhering to the principles of ALARA. COMPARISON: Chest CTA 01/06/2023. FINDINGS: Mild bronchial wall thickening, unchanged. Otherwise, the central airways are patent. No pn eumothorax. No pleural effusions. Advanced emphysema again noted. Scattered upper lobe predominant ir regular/nodular densities remain unchanged. These measure up to 9 mm. No new focal lung consolidation s to suggest a pneumonia. No evidence for pulmonary edema. There are old, healed bilateral rib fractu res again noted. No suspicious osseous lesions. Old left clavicle fracture. Limited views of the uppe r abdomen demonstrate normal liver, spleen, and adrenal glands. Suture material at the greater curvat ure of the stomach. A left subclavian Port-A-Cath terminates in the SVC. Normal esophagus. A small pe ricardial effusion is again noted. The heart is normal in size. Calcified plaque within the normal ca liber thoracic aorta. Moderate coronary artery calcifications are present. No mediastinal or hilar ly mphadenopathy. Calcified right paratracheal lymph nodes remain unchanged. Mild circumferential thicke eren of the trachea has slightly progressed. IMPRESSION: 1. Mild circumferential thickening of the trachea which has slightly progressed. Otherwise, the mild bronchial wall thickening remains unchanged. 2. Emphysema. 3. No significant change in the upper lobe predominant scattered/irregular nodular densities measurin g up to 9 mm. 4. No new focal lung consolidations to suggest a pneumonia. 5. Additional findings as described above. ACT 112: Negative or not required by law. Electronically signed by: Lalo Santana M.D. 02/03/2023 11:50 AM
[2023-02-03] MEDS: NYSTATIN SUSP 500,000 U/5 ML UDC PO SCH ×3 (12:29→20:10)
[2023-02-03] MEDS: levoFLOXacin 750 MG TAB PO SCH (12:29)
[2023-02-03] MEDS ORDERED: XOPENEX/ATROVENT 0.63mg/0.5MG NEB COMBO NEB SCH (13:00)
[2023-02-03] MEDS: LEVALBUTEROL HCL 0.63 MG/3 ML NEB NEB SCH ×2 (13:17→19:27)
[2023-02-03] MEDS: IPRATROPIUM BROMIDE NEB SOLN 0.02% 2.5 ML VIAL INH SCH ×2 (13:17→19:27)
[2023-02-03] MEDS: TAMSULOSIN HCL 0.4 MG CAP PO SCH (20:11)
[2023-02-04] MEDS: IPRATROPIUM BROMIDE NEB SOLN 0.02% 2.5 ML VIAL INH SCH ×4 (01:40→19:46)
[2023-02-04] MEDS: LEVALBUTEROL HCL 0.63 MG/3 ML NEB NEB SCH ×4 (01:40→19:46)
[2023-02-04] MEDS: ASPIRIN 81 MG ECTAB PO SCH (07:38)
[2023-02-04] MEDS: metFORMIN HCL 500 MG TAB PO SCH ×2 (07:38→17:40)
[2023-02-04] MEDS: GABAPENTIN 600 MG TAB PO SCH ×3 (07:39→20:57)
[2023-02-04] MEDS: guaiFENesin 600 MG TABCR PO SCH ×2 (07:39→20:57)
[2023-02-04] MEDS: ATORVASTATIN 40 MG TAB PO SCH (07:39)
[2023-02-04] MEDS: DULoxetine HCL 60 MG CAP PO SCH (07:39)
[2023-02-04] MEDS: PANTOprazole 40 MG TAB PO SCH (07:40)
[2023-02-04] MEDS: NYSTATIN SUSP 500,000 U/5 ML UDC PO SCH ×4 (07:40→20:58)
[2023-02-04] MEDS: predniSONE 2.5 MG TAB PO SCH (07:40)
[2023-02-04] MEDS: levoFLOXacin 750 MG TAB PO SCH (07:40)
[2023-02-04] MEDS: METOPROLOL SUCC 25MG EXT REL TAB PO SCH (07:40)
[2023-02-04] MEDS: ENOXAPARIN INJ 40 MG/0.4 ML SYR SQ SCH (07:41)
[2023-02-04] MEDS: LIDOCAINE 5% 1 PATCH TD SCH (07:41)
[2023-02-04] MEDS: ROFLUMILAST 500 MCG TAB PO SCH (07:41)
[2023-02-04] MEDS: BUDESONIDE 0.5 MG/2 ML VIAL (PULMICORT) NEB SCH ×2 (07:48→19:46)
[2023-02-04] MEDS: FORMOTEROL 20 MCG/2 ML VIAL NEB SCH ×2 (07:48→19:46)
[2023-02-04] MEDS: HEPARIN 100 UNIT/ML 5ML FLUSH FLUSH PRN (08:32)
[2023-02-04] MEDS: ONDANSETRON INJ 2 MG/ML 2 ML VIAL IV PRN (12:17)
--- NOTE | 2023-02-04 12:26 | Hospitalist Progress Note ---
Date of Service February 04, 2023 Assessment & Plan (1) COPD, group D, by GOLD 2017 classification: Plan: Advanced COPD with emphysema, hypoxic respiratory failure (with activity) and h/o non-small cell lung ca Acute on chronic/stable - mod risk (high risk for respiratory failure d/t pt noncompliance with wearing O2) - Admitted with hypercapnic respiratory failure based on vbg, however, pt has not required any respiratory interventions such as bipap - He remains stable on room air with a most recent pulse ox of 95% - Continue tapering Prednisone, currently on 7.5mg daily - Continue pulmonary toilet with Xopenex/atrovent, Pulmicort and Perforomist, and Mucinex - Goal pulse ox 88-92% - per Dr. Alicia's last note, he is to be wearing 2L O2 with exertion but doesn't wear it due to lack of SMALL portable concentrator - This was looked into, these devices are not covered by insurance - Pt admits that he is NOT wearing his O2 with activity due to the size of the concentrators, reiterated that he is risking respiratory failure which could lead to cardiopulmonary arrest, he verbalized understanding of this - Pt started on empiric Levaquin for possible developing PNA - CT obtained, no evidence of PNA, remains afebrile, stop Levaquin - Sputum culture pending, gram stain shows many polys, few epi cells, many GPC, GPB, and few yeast (2) Throat burning: Plan: Acute/unstable - uncertain risk - Previous h/o thrush, exam today does note plaques c/w thrush - Discussed with speech therapy, formal consult placed, but given evidence of thrush, will hold off on any instrumental assessment until he has completed treatment for thrush - Started on Nystatin 5mL swish and swallow - Tracheal thickening noted on CT, would benefit from ENT eval on dc. Nurse Jayme aware/arranging (3) Headache: Plan: Acute/stable/resolved - Patient reports seldom gets headaches but does have pain in the base/back of his neck - Suspect that this is MSK and is the cause of his headache - Continue Lidoderm patches, increase APAP to 1g TID prn, and Toradol - Now refusing Lidoderm patches (4) Abnormal gastrointestinal PET scan: Plan: Acute/stable - 2.5 cm hypermetabolic focus seen in the gastric fundus - Underwent EGD/colo - found to have a bezoar - Scheduled for gastric emptying study February 25, 2023 (5) Type 2 diabetes mellitus: Plan: Chronic/stable - NIDDM - Controlled with Metformin 500mg BID at home - Hemoglobin a1c 6.9% 01/12/23 - Continue Metformin, continue diabetic diet, check BSG AC and HS Plan Continues to endorse multiple complaints, all of which are chronic and will not be resolved during this hospitalization. He is stable for discharge but is resistant to going home today. I did explain to him that he would be discharged tomorrow. Plan d/w Dr. Ludwig. Admission and Anticipated Discharge Date Admission Date: February 02, 2023 Subjective Patient was seen on daily rounds this morning. Continues to c/o throat irritation and shortness of breath especially with exertion. Started on nystatin yesterday for thrush, doesn't feel any significant improvement. Physical Exam Physical Exam: GENERAL: 62 yo Well-developed, well-nourished M. AAOx4. NAD. MOUTH: does have white plaques throughout mouth c/w thrush LUNGS: Nonlabored/no conversational dyspnea. Decreased air exchange with diminished breath sounds throughout. CARDIOVASCULAR: RRR w/o m/g/r Results & Data Results & Data Vital Signs (Past 12 Hours) Vital Signs Temp Pulse Resp BP Pulse Ox O2 Del Method 02/04/23 07:25 Room Air 02/04/23 07:59 98 H 95 Room Air 02/04/23 07:30 36.6 C 102 H 22 98/66 L 94 Room Air 02/04/23 07:49 100 H 18 92 Room Air PG Care Time/CCT Total # of Minutes Spent Total Time Spent with Patient: Total time spent is greater than 50% in coordination of care (as documented) at patient's floor/unit and/or counseling patient: Coding Level of Care Code 95837 SUB INP/OBS CARE 2/35MIN Diagnoses COPD, group D, by GOLD 2017 classification J44.9 Throat burning R07.0 Headache R51.9 Headache chronicity pattern: acute headache Headache type: unspecified Intractability: not intractable Abnormal gastrointestinal PET scan R94.8 Type 2 diabetes mellitus E11.9 (3) Headache Headache chronicity pattern: acute headache Headache type: unspecified Intractability: not intractable Qualified Code(s): R51.9 - Headache, unsp ecified
[2023-02-04] MEDS: TAMSULOSIN HCL 0.4 MG CAP PO SCH (20:57)
[2023-02-05] MEDS: IPRATROPIUM BROMIDE NEB SOLN 0.02% 2.5 ML VIAL INH SCH ×4 (01:11→19:10)
[2023-02-05] MEDS: LEVALBUTEROL HCL 0.63 MG/3 ML NEB NEB SCH ×4 (01:12→19:10)
[2023-02-05] MEDS: ONDANSETRON INJ 2 MG/ML 2 ML VIAL IV PRN (02:31)
[2023-02-05] MEDS: BUDESONIDE 0.5 MG/2 ML VIAL (PULMICORT) NEB SCH ×2 (07:26→19:07)
[2023-02-05] MEDS: FORMOTEROL 20 MCG/2 ML VIAL NEB SCH ×2 (07:26→19:08)
[2023-02-05] MEDS ORDERED: LACTATED RINGER'S 500 ML IV ONE (08:29)
[2023-02-05] MEDS: ACETAMINOPHEN 500 MG TAB PO PRN (08:42)
[2023-02-05] MEDS: LIDOCAINE 5% 1 PATCH TD SCH (08:43)
[2023-02-05] MEDS: ENOXAPARIN INJ 40 MG/0.4 ML SYR SQ SCH (08:44)
[2023-02-05] MEDS: metFORMIN HCL 500 MG TAB PO SCH ×2 (08:44→17:10)
[2023-02-05] MEDS: DULoxetine HCL 60 MG CAP PO SCH (08:45)
[2023-02-05] MEDS: guaiFENesin 600 MG TABCR PO SCH ×2 (08:45→20:01)
[2023-02-05] MEDS: GABAPENTIN 600 MG TAB PO SCH ×3 (08:45→20:30)
[2023-02-05] MEDS: NYSTATIN SUSP 500,000 U/5 ML UDC PO SCH ×4 (08:46→20:00)
[2023-02-05] MEDS: ROFLUMILAST 500 MCG TAB PO SCH (08:46)
[2023-02-05] MEDS: ATORVASTATIN 40 MG TAB PO SCH (08:46)
[2023-02-05] MEDS: PANTOprazole 40 MG TAB PO SCH (08:47)
[2023-02-05] MEDS: ASPIRIN 81 MG ECTAB PO SCH (08:47)
[2023-02-05] MEDS ORDERED: predniSONE 5 MG TAB PO SCH (09:00)
[2023-02-05] MEDS: METOPROLOL SUCC 25MG EXT REL TAB PO SCH (09:34)
[2023-02-05] MEDS: HEPARIN 100 UNIT/ML 5ML FLUSH FLUSH PRN ×2 (09:37→14:42)
[2023-02-05] MEDS ORDERED: LACTATED RINGER'S 1,000 ML IV SCH (10:00)
[2023-02-05 10:22] LABS: Basophils # (auto) 0.03 K/uL (0-0.2); Basophils % (auto) 0.5 %; Eosinophils # (auto) 0.07 K/uL (0-0.50); Eosinophils % (auto) 1.1 %; Hemoglobin 13.9 g/dl (14.0-18.0); Immature Granulocytes # (auto) 0.06 K/uL (0.01-0.20); Immature Granulocytes % (auto) 0.9 %; Lymphocytes # (auto) 0.93 K/uL (1.2-3.4); Lymphocytes % (auto) 14.1 %; Mean Corpuscular Hemoglobin 29.6 pg (25.0-34.0); Mean Corpuscular Hgb Conc 33.1 g/dL (32.0-36.0); Mean Corpuscular Volume 89.4 fL (80.0-100.0); Mean Platelet Volume 9.3 fL (9.4-12.4); Monocytes # (auto) 0.64 K/uL (0.11-0.59); Monocytes % (auto) 9.7 %; Neutrophils # (auto) 4.86 K/uL (1.40-6.50); Neutrophils % (auto) 73.7 %; Platelet Count 216 K/uL (130-400); RDW Coefficient of Variation 17.1 % (11.5-14.5); RDW Standard Deviation 55.8 fL (36.4-46.3); White Blood Count 6.59 K/ul (4.8-10.8)
--- NOTE | 2023-02-05 10:23 | XRay Report ---
SINGLE VIEW CHEST CLINICAL HISTORY: Hypoxia. FINDINGS: An AP, portable, upright chest radiograph is compared to study dated 02/01/2023 and correlat ed with chest CT dated 02/03/2023. A left subclavian central venous infusion port is unchanged in posit ion. The cardiomediastinal silhouette is top normal for projection noting atherosclerotic calcificati on of the thoracic aorta. Advanced emphysema and chronic interstitial thickening is similar to previo us. Tiny pulmonary nodules seen by CT are not apparent on chest x-ray. Foci of parenchymal scarring a re seen throughout both lungs, greatest at the left lung base. There is no superimposed airspace cons olidation or large pleural effusion. No pneumothorax is seen. The skeletal structures are osteopenic. There is chronic posttraumatic deformity of the left clavicle. There are chronic/healed left-sided r ib fractures. IMPRESSION: Advanced emphysematous change with no acute cardiopulmonary abnormality identified. ACT 112: Negative or not required by law. Electronically signed by: Jorge Alberto Webber M.D. 02/05/2023 10:22 AM
[2023-02-05 10:41] LABS: BUN Creatinine Ratio 18.9 (10-20); Calcium 8.5 mg/dl (8.6-10.3); Est GFR (African American) 105.7 ml/min; Est GFR (Non-African American) 91.2 ml/min; Potassium 3.5 mmol/L (3.5-5.1)
[2023-02-05] MEDS ORDERED: predniSONE 10 MG TABLET PO ONE (18:10)
--- NOTE | 2023-02-05 18:10 | Hospitalist Progress Note ---
Date of Service February 05, 2023 Assessment & Plan (1) COPD, group D, by GOLD 2017 classification: Plan: Advanced COPD with emphysema, hypoxic respiratory failure (with activity) and h/o non-small cell lung ca Acute on chronic/stable - mod risk (high risk for respiratory failure d/t pt noncompliance with wearing O2) - Admitted with hypercapnic respiratory failure based on vbg, however, pt has not required any respiratory interventions such as bipap -Borderline hypoxia, 94% on room air fatigues easily - Continue tapering Prednisone, currently on 7.5mg daily.? Element of adrenal insufficiency in the setting of prednisone taper and hypotension/tachycardia. Will increase and see if this improves his hemodynamics. - Continue pulmonary toilet with Xopenex/atrovent, Pulmicort and Perforomist, and Mucinex - Goal pulse ox 88-92% - per Dr. Alicia's last note, he is to be wearing 2L O2 with exertion but doesn't wear it due to lack of SMALL portable concentrator - This was looked into, these devices are not covered by insurance - Pt admits that he is NOT wearing his O2 with activity due to the size of the concentrators, reiterated that he is risking respiratory failure which could lead to cardiopulmonary arrest, he verbalized understanding of this - Pt started on empiric Levaquin for possible developing PNA - CT obtained, no evidence of PNA, remains afebrile, Levaquin discontinued - Sputum culture pending, gram stain shows many polys, few epi cells, many GPC, GPB, and few yeast (2) Throat burning: Plan: Acute/unstable - uncertain risk - Previous h/o thrush, exam today does note plaques c/w thrush - Discussed with speech therapy, formal consult placed, but given evidence of thrush, no instrumental assessment until he has completed treatment for thrush -Continue on Nystatin 5mL swish and swallow - Tracheal thickening noted on CT, would benefit from ENT eval on dc. Nurse Jayme aware/arranging (3) Headache: Plan: Acute/stable/resolved - Patient reports seldom gets headaches but does have pain in the base/back of his neck - Suspect that this is MSK and is the cause of his headache - Continue Lidoderm patches, increase APAP to 1g TID prn, and Toradol (4) Abnormal gastrointestinal PET scan: Plan: Acute/stable - 2.5 cm hypermetabolic focus seen in the gastric fundus - Underwent EGD/colo - found to have a bezoar - Scheduled for gastric emptying study February 25, 2023 (5) Type 2 diabetes mellitus: Plan: Chronic/stable - NIDDM - Controlled with Metformin 500mg BID at home - Hemoglobin a1c 6.9% 01/12/23 - Continue Metformin, continue diabetic diet, check BSG AC and HS Plan Multiple complaints, desaturates easily. Given presyncope and tachycardia/hypotension will assess for relative AI in the setting of chronic prednisone use, give additional fluids, and reassess for discharge tomorrow. Admission and Anticipated Discharge Date Admission Date: February 02, 2023 Subjective Reports he continues to feel poorly, stable but persistent hypotension systolic 90s and pulse ranging [id number]. Slightly lightheaded with attempted ambulation today, borderline hypoxia 94 on room air limited significantly and attempted exertion. Otherwise feels slightly tremulous but no acute questions or concerns. Denies productive cough. Denies chest pain, chest pressure. No nausea/vomiting/diarrhea. Physical Exam Physical Exam: General: A&Ox3. NAD. Cooperative. HEENT: Atraumatic, normocephalic. Vision and hearing grossly intact Pulm: diminished, -wheezes, -rales, -rhonchi. Symmetrical chest rise. No increased work of breathing. No respiratory distress. Cardiac: RRR, -mrg. Radial pulses intact and symmetrical. Abdominal: Nontender, nondistended, soft. BS present. Extremities: Thin Results & Data Results & Data Vital Signs (Past 12 Hours) Vital Signs Temp Pulse Resp BP Pulse Ox O2 Del Method 02/05/23 14:58 37.0 C 119 H 18 92/56 L 94 Room Air 02/05/23 13:33 36.5 C 124 H 18 94/55 L 95 Room Air 02/05/23 13:13 120 H 18 93 Room Air 02/05/23 10:56 36.7 C 119 H 17 91/58 L 92 Room Air 02/05/23 08:55 Room Air 02/05/23 09:48 36.8 C 120 H 17 99/61 L 90 Room Air 02/05/23 09:03 36.8 C 118 H 18 96/61 L 92 Room Air 02/05/23 07:51 36.8 C 121 H 18 98/64 L 94 Room Air 02/05/23 07:28 120 H 18 90 Room Air PG Care Time/CCT Total # of Minutes Spent Total Time Spent with Patient: Total time spent is greater than 50% in coordination of care (as documented) at patient's floor/unit and/or counseling patient: Coding Level of Care Code 41066 SUB INP/OBS CARE 235MIN Diagnoses COPD, group D, by GOLD 2017 classification J44.9 Throat burning R07.0 Headache R51.9 Headache chronicity pattern: acute headache Headache type: unspecified Intractability: not intractable Abnormal gastrointestinal PET scan R94.8 Type 2 diabetes mellitus E11.9 (3) Headache Headache chronicity pattern: acute headache Headache type: unspecified Intractability: not intractable Qualified Code(s): R51.9 - Headache, unspecified
[2023-02-05] MEDS: TAMSULOSIN HCL 0.4 MG CAP PO SCH (20:02)
[2023-02-06] MEDS: LEVALBUTEROL HCL 0.63 MG/3 ML NEB NEB SCH ×4 (00:09→19:39)
[2023-02-06] MEDS: IPRATROPIUM BROMIDE NEB SOLN 0.02% 2.5 ML VIAL INH SCH ×4 (00:09→19:38)
[2023-02-06] MEDS ORDERED: MoRPHine SULFATE 2 MG/ML CARP IV STA (03:11)
[2023-02-06] MEDS ORDERED: KETOROLAC TROMETHAMINE 15 MG/ML VIAL IV ONE (03:56)
[2023-02-06] MEDS: KETOROLAC TROMETHAMINE 15 MG/ML VIAL IV PRN (04:02)
[2023-02-06 05:05] LABS: Basophils # (auto) 0.02 K/uL (0-0.2); Basophils % (auto) 0.3 %; Hematocrit (blood only) 40.9 % (42.0-52.0); Hemoglobin 13.2 g/dl (14.0-18.0); Immature Granulocytes # (auto) 0.07 K/uL (0.01-0.20); Immature Granulocytes % (auto) 1.1 %; Lymphocytes # (auto) 0.37 K/uL (1.2-3.4); Lymphocytes % (auto) 5.9 %; Mean Corpuscular Hemoglobin 28.8 pg (25.0-34.0); Mean Corpuscular Hgb Conc 32.3 g/dL (32.0-36.0); Mean Corpuscular Volume 89.3 fL (80.0-100.0); Mean Platelet Volume 9.5 fL (9.4-12.4); Monocytes # (auto) 0.34 K/uL (0.11-0.59); Monocytes % (auto) 5.4 %; Neutrophils # (auto) 5.47 K/uL (1.40-6.50); Neutrophils % (auto) 87.3 %; Platelet Count 217 K/uL (130-400); RDW Coefficient of Variation 16.8 % (11.5-14.5); RDW Standard Deviation 54.8 fL (36.4-46.3); Red Blood Count 4.58 M/uL (4.70-6.10); White Blood Count 6.27 K/ul (4.8-10.8)
[2023-02-06 05:24] LABS: BUN Creatinine Ratio 16.7 (10-20); Calcium 8.5 mg/dl (8.6-10.3); Creatinine Clr Calc Pharmacy 96.5 ml/min; Est GFR (African American) 108.8 ml/min; Est GFR (Non-African American) 93.8 ml/min; Potassium 3.5 mmol/L (3.5-5.1)
[2023-02-06 05:32] LABS: Troponin I High Sensitivity 10.7 pg/ml (0-20)
--- NOTE | 2023-02-06 06:34 | XRay Report ---
XR chest 1V portable CLINICAL HISTORY: new onset chest pain COMPARISON STUDY: Chest CT February 03, 2023. Chest radiograph February 05, 2023. FINDINGS: Left subclavian Mcbekp-h-Vedn remains in place. There is no pneumothorax or pleural effusio n. Upper lobe predominant emphysema is noted. There is no consolidation to suggest pneumonia. The mira earance of the chest is unchanged. Pulmonary vascularity is normal. IMPRESSION: 1. No acute cardiopulmonary findings. 2. No change in appearance of the chest. Emphysema. ACT 112: Negative or not required by law. Electronically signed by: Hansel Lopez M.D. 02/06/2023 6:33 AM
[2023-02-06] MEDS: BUDESONIDE 0.5 MG/2 ML VIAL (PULMICORT) NEB SCH ×2 (07:30→19:43)
[2023-02-06] MEDS: FORMOTEROL 20 MCG/2 ML VIAL NEB SCH ×2 (07:30→19:43)
[2023-02-06] MEDS: ENOXAPARIN INJ 40 MG/0.4 ML SYR SQ SCH (08:40)
[2023-02-06] MEDS: ATORVASTATIN 40 MG TAB PO SCH (08:41)
[2023-02-06] MEDS: metFORMIN HCL 500 MG TAB PO SCH ×2 (08:41→18:07)
[2023-02-06] MEDS: GABAPENTIN 600 MG TAB PO SCH ×3 (08:41→20:20)
[2023-02-06] MEDS: predniSONE 5 MG TAB PO SCH (08:41)
[2023-02-06] MEDS: NYSTATIN SUSP 500,000 U/5 ML UDC PO SCH ×4 (08:41→20:19)
[2023-02-06] MEDS: ASPIRIN 81 MG ECTAB PO SCH (08:42)
[2023-02-06] MEDS: METOPROLOL SUCC 25MG EXT REL TAB PO SCH (08:42)
[2023-02-06] MEDS: DULoxetine HCL 60 MG CAP PO SCH (08:42)
[2023-02-06] MEDS: guaiFENesin 600 MG TABCR PO SCH ×2 (08:42→20:20)
[2023-02-06] MEDS: PANTOprazole 40 MG TAB PO SCH (08:43)
[2023-02-06] MEDS: LIDOCAINE 5% 1 PATCH TD SCH (08:43)
[2023-02-06] MEDS: ROFLUMILAST 500 MCG TAB PO SCH (08:43)
[2023-02-06] MEDS: HEPARIN 100 UNIT/ML 5ML FLUSH FLUSH PRN ×2 (13:41→16:55)
[2023-02-06 17:22] LABS: Base Excess VBG 2.7 mEq/L; HCO3 VBG 29 mmol/L; Oxygen Saturation VBG 64.1 %; PCO2 VBG 47 mmHg (38-50); PO2 VBG 37 mmHg; pH VBG 7.39 (7.36-7.41)
[2023-02-06] MEDS: TAMSULOSIN HCL 0.4 MG CAP PO SCH (20:20)
--- NOTE | 2023-02-06 20:58 | Electrocardiogram Report ---
Test Reason : Blood Pressure : / mmHG Vent. Rate : 119 BPM Atrial Rate : 119 BPM P-R Int : 178 ms QRS Dur : 082 ms QT Int : 312 ms P-R-T Axes : 087 079 078 degrees QTc Int : 438 ms Poor data quality, interpretation may be adversely affected Sinus tachycardia Nonspecific ST abnormality Abnormal ECG When compared with ECG of 01-FEB-2023 23:07, No significant change was found Confirmed by Todd Tom ([id number]) on 02/06/2023 8:58:10 PM Referred By: REFERRED SELF Confirmed By:Todd Tom
--- NOTE | 2023-02-06 22:01 | Electrocardiogram Report ---
Test Reason : Blood Pressure : / mmHG Vent. Rate : 128 BPM Atrial Rate : 128 BPM P-R Int : 150 ms QRS Dur : 076 ms QT Int : 296 ms P-R-T Axes : 075 077 073 degrees QTc Int : 432 ms Poor data quality, interpretation may be adversely affected Sinus tachycardia Possible Anterolateral infarct , age undetermined Abnormal ECG When compared with ECG of 05-FEB-2023 10:05, (unconfirmed) Borderline criteria for Anterolateral infarct are now Present Confirmed by Todd Tom ([id number]) on 02/06/2023 10:01:32 PM Referred By: REFERRED SELF Confirmed By:Todd Tom
--- NOTE | 2023-02-06 22:08 | Hospitalist Progress Note ---
Date of Service February 06, 2023 Assessment & Plan (1) COPD, group D, by GOLD 2017 classification: Plan: Advanced COPD with emphysema, hypoxic respiratory failure (with activity) and h/o non-small cell lung ca Acute on chronic/stable - mod risk (high risk for respiratory failure d/t pt noncompliance with wearing O2) - Admitted with hypercapnic respiratory failure based on vbg, however, pt has not required any respiratory interventions such as bipap -Borderline hypoxia, 94% on room air fatigues easily - Continue tapering Prednisone, currently on 7.5mg daily.? Element of adrenal insufficiency in the setting of prednisone taper and hypotension/tachycardia. Will increase and see if this improves his hemodynamics. - Continue pulmonary toilet with Xopenex/atrovent, Pulmicort and Perforomist, and Mucinex - Goal pulse ox 88-92% - per Dr. Alicia's last note, he is to be wearing 2L O2 with exertion but doesn't wear it due to lack of SMALL portable concentrator - This was looked into, these devices are not covered by insurance - Pt admits that he is NOT wearing his O2 with activity due to the size of the concentrators, reiterated that he is risking respiratory failure which could lead to cardiopulmonary arrest, he verbalized understanding of this - Pt started on empiric Levaquin for possible developing PNA - CT obtained, no evidence of PNA, remains afebrile, Levaquin discontinued - Sputum culture pending, gram stain shows many polys, few epi cells, many GPC, GPB, and few yeast Patient continues to be tachycardic. At this point, Not sure of the cause. EKG appears to be sinus. will transfer to PCU on 02/06 to keep him on monitor to beatter assess his trend. (2) Throat burning: Plan: Acute/unstable - uncertain risk - Previous h/o thrush, exam today does note plaques c/w thrush - Discussed with speech therapy, formal consult placed, but given evidence of thrush, no instrumental assessment until he has completed treatment for thrush -Continue on Nystatin 5mL swish and swallow - Tracheal thickening noted on CT, would benefit from ENT eval on dc. Nurse Jayme aware/arranging (3) Headache: Plan: Acute/stable/resolved - Patient reports seldom gets headaches but does have pain in the base/back of his neck - Suspect that this is MSK and is the cause of his headache - Continue Lidoderm patches, increase APAP to 1g TID prn, and Toradol (4) Abnormal gastrointestinal PET scan: Plan: Acute/stable - 2.5 cm hypermetabolic focus seen in the gastric fundus - Underwent EGD/colo - found to have a bezoar - Scheduled for gastric emptying study February 25, 2023 (5) Type 2 diabetes mellitus: Plan: Chronic/stable - NIDDM - Controlled with Metformin 500mg BID at home - Hemoglobin a1c 6.9% 01/12/23 - Continue Metformin, continue diabetic diet, check BSG AC and HS Plan Multiple complaints, desaturates easily. Given presyncope and tachycardia/hypotension will assess for relative AI in the setting of chronic prednisone use, give additional fluids. Will consider reaching out to pulmonary Admission and Anticipated Discharge Date Admission Date: February 02, 2023 Subjective 62 yo male reports no new symptoms. NO improvement in his breathing. Review of Systems Review of Systems: All systems reviewed & are unremarkable except as noted in HPI & below Physical Exam Physical Exam: General: A&Ox3. NAD. Cooperative. HEENT: Atraumatic, normocephalic. Vision and hearing grossly intact Pulm: diminished, -wheezes, -rales, -rhonchi. Symmetrical chest rise. No increased work of breathing. No respiratory distress. Cardiac: RRR, -mrg. Radial pulses intact and symmetrical. Abdominal: Nontender, nondistended, soft. BS present. Extremities: Thin Results & Data Results & Data Vital Signs (Past 12 Hours) Vital Signs Temp Pulse Pulse Resp BP Pulse Ox O2 Del Method 02/06/23 21:30 Room Air 02/06/23 19:43 133 H 20 Room Air 02/06/23 19:00 36.6 C 128 H 23 98/69 L 93 Room Air 02/06/23 18:47 Room Air 02/06/23 14:15 36.3 C L 120 H 16 96/56 L 93 Room Air FiO2 02/06/23 21:30 02/06/23 19:43 21 02/06/23 19:00 02/06/23 18:47 02/06/23 14:15 PG Care Time/CCT Total # of Minutes Spent Total Time Spent with Patient: Total time spent is greater than 50% in coordination of care (as documented) at patient's floor/unit and/or counseling patient: Coding Level of Care Code 10837 SUB INP/OBS CARE MIN Diagnoses COPD, group D, by GOLD 2017 classification J44.9 Throat burning R07.0 Headache R51.9 Headache chronicity pattern: acute headache Headache type: unspecified Intractability: not intractable Abnormal gastrointestinal PET scan R94.8 Type 2 diabetes mellitus E11.9 (3) Headache Headache chronicity pattern: acute headache Headache type: unspecified Intractability: not intractable Qualified Code(s): R51.9 - Headache, unspecified
[2023-02-07] MEDS: IPRATROPIUM BROMIDE NEB SOLN 0.02% 2.5 ML VIAL INH SCH ×5 (00:05→19:24)
[2023-02-07] MEDS: LEVALBUTEROL HCL 0.63 MG/3 ML NEB NEB SCH ×5 (00:05→19:24)
[2023-02-07 05:28] LABS: Hematocrit (blood only) 40.5 % (42.0-52.0); Hemoglobin 13.3 g/dl (14.0-18.0); Mean Corpuscular Hemoglobin 29.2 pg (25.0-34.0); Mean Corpuscular Hgb Conc 32.8 g/dL (32.0-36.0); Mean Platelet Volume 9.2 fL (9.4-12.4); Platelet Count 238 K/uL (130-400); RDW Coefficient of Variation 16.8 % (11.5-14.5); RDW Standard Deviation 54.4 fL (36.4-46.3); Red Blood Count 4.55 M/uL (4.70-6.10); White Blood Count 6.08 K/ul (4.8-10.8)
[2023-02-07 05:39] LABS: BUN Creatinine Ratio 16.2 (10-20); C Reactive Protein 0.64 mg/dl (0-0.5); Calcium 8.6 mg/dl (8.6-10.3); Creatinine Clr Calc Pharmacy 109.5 ml/min; Est GFR (African American) 114.6 ml/min; Est GFR (Non-African American) 98.9 ml/min; Potassium 3.4 mmol/L (3.5-5.1)
[2023-02-07] MEDS: FORMOTEROL 20 MCG/2 ML VIAL NEB SCH ×2 (07:21→19:21)
[2023-02-07] MEDS: BUDESONIDE 0.5 MG/2 ML VIAL (PULMICORT) NEB SCH ×2 (07:22→19:21)
[2023-02-07] MEDS: METOPROLOL SUCC 25MG EXT REL TAB PO SCH (08:01)
[2023-02-07] MEDS: PANTOprazole 40 MG TAB PO SCH (08:01)
[2023-02-07] MEDS: NYSTATIN SUSP 500,000 U/5 ML UDC PO SCH ×4 (08:01→20:25)
[2023-02-07] MEDS: LIDOCAINE 5% 1 PATCH TD SCH ×2 (08:01→08:16)
[2023-02-07] MEDS: ENOXAPARIN INJ 40 MG/0.4 ML SYR SQ SCH (08:01)
[2023-02-07] MEDS: DULoxetine HCL 60 MG CAP PO SCH (08:02)
[2023-02-07] MEDS: guaiFENesin 600 MG TABCR PO SCH ×2 (08:02→20:20)
[2023-02-07] MEDS: ATORVASTATIN 40 MG TAB PO SCH (08:02)
[2023-02-07] MEDS: metFORMIN HCL 500 MG TAB PO SCH ×2 (08:02→17:14)
[2023-02-07] MEDS: ASPIRIN 81 MG ECTAB PO SCH (08:02)
[2023-02-07] MEDS: GABAPENTIN 600 MG TAB PO SCH ×3 (08:02→20:19)
[2023-02-07] MEDS: ROFLUMILAST 500 MCG TAB PO SCH (08:03)
[2023-02-07] MEDS: predniSONE 5 MG TAB PO SCH (08:53)
[2023-02-07] MEDS ORDERED: OPTIRAY 320 500ml IV ONE (09:47)
--- NOTE | 2023-02-07 10:19 | Ultrasound Report ---
BILATERAL LOWER EXTREMITY VENOUS DOPPLER HISTORY: tachycardia COMPARISON STUDY: None. FINDINGS: There is normal compressibility, flow, and augmentation within the bilateral lower extremit y deep venous systems. IMPRESSION: No DVT within the right or left lower extremity. ACT 112: Negative or not required by law. Electronically signed by: Lalo Santana M.D. 02/07/2023 10:17 AM
--- NOTE | 2023-02-07 10:33 | CT Scan Report ---
CHEST CTA for PULMONARY ARTERIES CT DOSE: 275.65 mGy.cm HISTORY: Shortness of breath. History of COPD and lung cancer. TECHNIQUE: Multiaxial CT images of the chest were performed following the intravenous administration of contrast to evaluate the pulmonary arteries. Maximal intensity projection images were also obtaine d. A dose lowering technique was utilized adhering to the principles of ALARA. COMPARISON STUDY: Chest CT 02/03/2023. FINDINGS: There is a normal caliber thoracic aorta with no evidence for a dissection. No filling defe cts within the pulmonary arteries to suggest a pulmonary embolus. A left subclavian Port-A-Cath termi nates in the SVC. No suspicious lytic or blastic osseous lesions. There are old, healed bilateral rib fractures again noted. No suspicious lytic are blastic osseous lesions. Limited views of the upper a bdomen demonstrate a normal spleen and adrenal glands. There is a 1 cm hypodense lesion within the le ft hepatic lobe, unchanged. This favors a small cyst. Trace pericardial effusion has improved. No ple ural effusions. Normal esophagus. No mediastinal or hilar lymphadenopathy. Calcified precarinal lymph node, unchanged. Mild circumferential thickening of the trachea and mainstem bronchi is similar to t he prior study. However, the central airways remain patent. Emphysema. No pneumothorax. No change in the scattered irregular densities within the lungs. These measure up to 9 mm in size. No new focal samantha ng consolidations to suggest a pneumonia. IMPRESSION: 1. No evidence for a pulmonary embolus. 2. Emphysema. 3. Mild circumferential thickening of the trachea and central bronchi again noted. Otherwise, the yann tral airways remain patent. 4. Scattered upper lobe predominant irregular nodular densities remain unchanged measuring up to 9 mm . No new focal lung consolidations to suggest a pneumonia. 5. Additional findings as described above. ACT 112: Negative or not required by law. Electronically signed by: Lalo Santana M.D. 02/07/2023 10:30 AM
--- NOTE | 2023-02-07 11:04 | Hospitalist Progress Note ---
Date of Service February 07, 2023 Assessment & Plan (1) COPD, group D, by GOLD 2017 classification: Plan: Advanced COPD with emphysema, hypoxic respiratory failure (with activity) and h/o non-small cell lung ca Acute on chronic/stable - mod risk (high risk for respiratory failure d/t pt noncompliance with wearing O2) - Admitted with hypercapnic respiratory failure based on vbg, however, pt has not required any respiratory interventions such as bipap -Borderline hypoxia, 94% on room air fatigues easily - Continue tapering Prednisone, currently on 7.5mg daily.? Element of adrenal insufficiency in the setting of prednisone taper and hypotension/tachycardia. Will increase and see if this improves his hemodynamics. - Continue pulmonary toilet with Xopenex/atrovent, Pulmicort and Perforomist, and Mucinex - Goal pulse ox 88-92% - per Dr. Alicia's last note, he is to be wearing 2L O2 with exertion but doesn't wear it due to lack of SMALL portable concentrator - This was looked into, these devices are not covered by insurance - Pt admits that he is NOT wearing his O2 with activity due to the size of the concentrators, reiterated that he is risking respiratory failure which could lead to cardiopulmonary arrest, he verbalized understanding of this - Pt started on empiric Levaquin for possible developing PNA - CT obtained, no evidence of PNA, remains afebrile, Levaquin discontinued - Sputum culture pending, gram stain shows many polys, few epi cells, many GPC, GPB, and few yeast Patient continues to be tachycardic. At this point, Not sure of the cause. EKG appears to be sinus. will transfer to PCU on 02/06 to keep him on monitor to beatter assess his trend. On 02/07, continues to be tachycardic. Patient has been tachycardic since admission but this appears to be worsening. It appears his beta checo has been held due to low Blood pressure. This could be perhaps rebound tachycardia from not taking his metoprolol for 72 hours. Now that BP is better with corticoseroids as his cortisol levels were low, he will take his metorpolol today. will also order ct chest and doppler ultrasound to rule out PE Patient has been getting work up for a positive pet scan that showed a lesion in the gastric fundus, awaiting repeat outpatient EGD. will obtain 24 hour metanephrine collection. will continue prednsione as BP is better controlled. will order 20 mg PO prednsione for 5 days. (2) Throat burning: Plan: Acute/unstable - uncertain risk - Previous h/o thrush, exam today does note plaques c/w thrush - Discussed with speech therapy, formal consult placed, but given evidence of thrush, no instrumental assessment until he has completed treatment for thrush -Continue on Nystatin 5mL swish and swallow - Tracheal thickening noted on CT, would benefit from ENT eval on dc. Nurse Jayme aware/arranging (3) Headache: Plan: Acute/stable/resolved - Patient reports seldom gets headaches but does have pain in the base/back of his neck - Suspect that this is MSK and is the cause of his headache - Continue Lidoderm patches, increase APAP to 1g TID prn, and Toradol (4) Abnormal gastrointestinal PET scan: Plan: Acute/stable - 2.5 cm hypermetabolic focus seen in the gastric fundus - Underwent EGD/colo - found to have a bezoar - Scheduled for gastric emptying study February 25, 2023 (5) Type 2 diabetes mellitus: Plan: Chronic/stable - NIDDM - Controlled with Metformin 500mg BID at home - Hemoglobin a1c 6.9% 01/12/23 - Continue Metformin, continue diabetic diet, check BSG AC and HS Plan Multiple complaints, desaturates easily. Given presyncope and tachycardia/hypotension will assess for relative AI in the setting of chronic prednisone use, give additional fluids. D/W pulm (Dr. Alicia), no official consult needed at this time. Admission and Anticipated Discharge Date Admission Date: February 02, 2023 Subjective 62 yo male reports no new symptoms. Continues to feel short of breath. Patient is tachycardic on heart monitor. Review of Systems Review of Systems: All systems reviewed & are unremarkable except as noted in HPI & below Physical Exam Physical Exam: General: A&Ox3. NAD. Cooperative. HEENT: Atraumatic, normocephalic. Vision and hearing grossly intact Pulm: diminished. Symmetrical chest rise. No increased work of breathing. No respiratory distress. Cardiac: RRR, -mrg. Radial pulses intact and symmetrical. Abdominal: Nontender, nondistended, soft. BS present. Extremities: Thin Results & Data Results & Data Vital Signs (Past 12 Hours) Vital Signs Temp Pulse Pulse Resp BP BP Pulse Ox 02/07/23 09:33 119 H 02/07/23 07:49 36.5 C 120 H 18 102/64 96 02/07/23 07:23 121 H 15 93 02/07/23 03:00 36.6 C 126 H 21 105/69 93 02/07/23 01:43 125 H 20 93 02/06/23 23:00 36.8 C 129 H 22 114/72 94 O2 Del Method FiO2 02/07/23 09:33 02/07/23 07:49 Room Air 02/07/23 07:23 Room Air 21 02/07/23 03:00 Room Air 02/07/23 01:43 Room Air 02/06/23 23:00 Room Air PG Care Time/CCT Total # of Minutes Spent Total Time Spent with Patient: Total time spent is greater than 50% in coordination of care (as documented) at patient's floor/unit and/or counseling patient: Coding Level of Care Code 83716 SUB INP/OBS CARE 3/50MIN Diagnoses COPD, group D, by GOLD 2017 classification J44.9 Throat burning R07.0 Headache R51.9 Headache chronicity pattern: acute headache Headache type: unspecified Intractability: not intractable Abnormal gastrointestinal PET scan R94.8 Type 2 diabetes mellitus E11.9 Time Spent (min) 50 (3) Headache Headache chronicity pattern: acute headache Headache type: unspecified Intractability: not intractable Qualified Code(s): R51.9 - Headache, unspecified
[2023-02-07] MEDS ORDERED: predniSONE 2.5 MG TAB PO ONE (11:15)
[2023-02-07] MEDS: TAMSULOSIN HCL 0.4 MG CAP PO SCH (20:21)
--- NOTE | 2023-02-07 23:04 | Hospitalist Progress Note ---
Date of Service February 07, 2023 Assessment & Plan (1) COPD, group D, by GOLD 2017 classification: Plan: Advanced COPD with emphysema, hypoxic respiratory failure (with activity) and h/o non-small cell lung ca Acute on chronic/stable - mod risk (high risk for respiratory failure d/t pt noncompliance with wearing O2) - Admitted with hypercapnic respiratory failure based on vbg, however, pt has not required any respiratory interventions such as bipap -Borderline hypoxia, 94% on room air fatigues easily - Continue tapering Prednisone, currently on 7.5mg daily.? Element of adrenal insufficiency in the setting of prednisone taper and hypotension/tachycardia. Will increase and see if this improves his hemodynamics. - Continue pulmonary toilet with Xopenex/atrovent, Pulmicort and Perforomist, and Mucinex - Goal pulse ox 88-92% - per Dr. Alicia's last note, he is to be wearing 2L O2 with exertion but doesn't wear it due to lack of SMALL portable concentrator - This was looked into, these devices are not covered by insurance - Pt admits that he is NOT wearing his O2 with activity due to the size of the concentrators, reiterated that he is risking respiratory failure which could lead to cardiopulmonary arrest, he verbalized understanding of this - Pt started on empiric Levaquin for possible developing PNA - CT obtained, no evidence of PNA, remains afebrile, Levaquin discontinued - Sputum culture pending, gram stain shows many polys, few epi cells, many GPC, GPB, and few yeast Patient continues to be tachycardic. At this point, Not sure of the cause. EKG appears to be sinus. will transfer to PCU on 02/06 to keep him on monitor to beatter assess his trend. On 02/07, continues to be tachycardic. Patient has been tachycardic since admission but this appears to be worsening. It appears his beta checo has been held due to low Blood pressure. This could be perhaps rebound tachycardia from not taking his metoprolol for 72 hours. Now that BP is better with corticoseroids as his cortisol levels were low, he will take his metorpolol today. will also order ct chest and doppler ultrasound to rule out PE Patient has been getting work up for a positive pet scan that showed a lesion in the gastric fundus, awaiting repeat outpatient EGD. will obtain 24 hour metanephrine collection. will continue prednsione as BP is better controlled. will order 20 mg PO prednsione for 5 days. (2) Throat burning: Plan: Acute/unstable - uncertain risk - Previous h/o thrush, exam today does note plaques c/w thrush - Discussed with speech therapy, formal consult placed, but given evidence of thrush, no instrumental assessment until he has completed treatment for thrush -Continue on Nystatin 5mL swish and swallow - Tracheal thickening noted on CT, would benefit from ENT eval on dc. Nurse Jayme aware/arranging (3) Headache: Plan: Acute/stable/resolved - Patient reports seldom gets headaches but does have pain in the base/back of his neck - Suspect that this is MSK and is the cause of his headache - Continue Lidoderm patches, increase APAP to 1g TID prn, and Toradol (4) Abnormal gastrointestinal PET scan: Plan: Acute/stable - 2.5 cm hypermetabolic focus seen in the gastric fundus - Underwent EGD/colo - found to have a bezoar - Scheduled for gastric emptying study February 25, 2023 (5) Type 2 diabetes mellitus: Plan: Chronic/stable - NIDDM - Controlled with Metformin 500mg BID at home - Hemoglobin a1c 6.9% 01/12/23 - Continue Metformin, continue diabetic diet, check BSG AC and HS Plan Multiple complaints, desaturates easily. Given presyncope and tachycardia/hypotension will assess for relative AI in the setting of chronic prednisone use, give additional fluids. D/W pulm (Dr. Alicia), no official consult needed at this time. Admission and Anticipated Discharge Date Admission Date: February 02, 2023 Results & Data Results & Data Vital Signs (Past 12 Hours) Vital Signs Temp Pulse Pulse Pulse Resp BP BP 02/07/23 20:05 02/07/23 19:00 36.6 C 107 H 21 98/70 L 02/07/23 19:24 106 H 18 02/07/23 15:50 112 H 02/07/23 14:57 36.6 C 108 H 20 93/64 L 02/07/23 13:14 110 H 14 02/07/23 11:59 36.3 C L 114 H 18 97/65 L 02/07/23 11:24 Pulse Ox O2 Del Method FiO2 02/07/23 20:05 Room Air 02/07/23 19:00 94 Room Air 02/07/23 19:24 94 Room Air 02/07/23 15:50 02/07/23 14:57 93 Room Air 02/07/23 13:14 94 Room Air 21 02/07/23 11:59 94 Room Air 02/07/23 11:24 Room Air PG Care Time/CCT Total # of Minutes Spent Total Time Spent with Patient: Total time spent is greater than 50% in coordination of care (as documented) at patient's floor/unit and/or counseling patient: Coding Diagnoses COPD, group D, by GOLD 2017 classification J44.9 Throat burning R07.0 Headache R51.9 Headache chronicity pattern: acute headache Headache type: unspecified Intractability: not intractable Abnormal gastrointestinal PET scan R94.8 Type 2 diabetes mellitus E11.9 (3) Headache Headache chronicity pattern: acute headache Headache type: unspecified Intractability: not intractable Qualified Code(s): R51.9 - Headache, unspecified
[2023-02-08] MEDS: IPRATROPIUM BROMIDE NEB SOLN 0.02% 2.5 ML VIAL INH SCH ×4 (00:02→19:13)
[2023-02-08] MEDS: LEVALBUTEROL HCL 0.63 MG/3 ML NEB NEB SCH ×4 (00:02→19:13)
[2023-02-08] MEDS: HEPARIN 100 UNIT/ML 5ML FLUSH FLUSH PRN ×3 (05:08→21:10)
[2023-02-08] MEDS: BUDESONIDE 0.5 MG/2 ML VIAL (PULMICORT) NEB SCH ×2 (07:14→19:13)
[2023-02-08] MEDS: FORMOTEROL 20 MCG/2 ML VIAL NEB SCH ×2 (07:14→19:13)
[2023-02-08] MEDS ORDERED: SODIUM CHLORIDE 0.9% 1000ML 1,000 ML IV SCH (07:50)
[2023-02-08 08:06] LABS: Base Excess VBG 5.8 mEq/L; HCO3 VBG 32 mmol/L; Oxygen Saturation VBG < 60.0 %; PCO2 VBG 50 mmHg (38-50); PO2 VBG 33 mmHg; pH VBG 7.41 (7.36-7.41)
[2023-02-08 08:16] LABS: Basophils # (auto) 0.04 K/uL (0-0.2); Basophils % (auto) 0.5 %; Eosinophils # (auto) 0.08 K/uL (0-0.50); Eosinophils % (auto) 1.1 %; Hematocrit (blood only) 43.4 % (42.0-52.0); Hemoglobin 14.2 g/dl (14.0-18.0); Immature Granulocytes # (auto) 0.15 K/uL (0.01-0.20); Lymphocytes # (auto) 1.53 K/uL (1.2-3.4); Lymphocytes % (auto) 20.5 %; Mean Corpuscular Hemoglobin 28.7 pg (25.0-34.0); Mean Corpuscular Hgb Conc 32.7 g/dL (32.0-36.0); Mean Corpuscular Volume 87.7 fL (80.0-100.0); Neutrophils # (auto) 5.08 K/uL (1.40-6.50); Neutrophils % (auto) 67.9 %; Platelet Count 267 K/uL (130-400); RDW Coefficient of Variation 17.2 % (11.5-14.5); RDW Standard Deviation 55.2 fL (36.4-46.3); Red Blood Count 4.95 M/uL (4.70-6.10); White Blood Count 7.48 K/ul (4.8-10.8)
[2023-02-08 08:30] LABS: Albumin Globulin Ratio 1.7 (0.9-2); Albumin Level 3.9 gm/dl (3.4-5.0); Bilirubin,Total 0.5 mg/dl (0.2-1.0); C Reactive Protein 0.77 mg/dl (0-0.5); Calcium 8.6 mg/dl (8.6-10.3); Creatinine Clr Calc Pharmacy 96.7 ml/min; Est GFR (Non-African American) 95.7 ml/min; Globulin 2.3 gm/dl (2.5-4.0); Potassium 3.6 mmol/L (3.5-5.1); Total Protein 6.2 gm/dl (6.0-8.3)
[2023-02-08] MEDS ORDERED: predniSONE 20 MG TAB PO SCH (09:00)
[2023-02-08] MEDS: HYDROCORTISONE SOD 50 MG in SYRINGE 0 ML IV SCH ×3 (09:22→20:07)
[2023-02-08] MEDS: DULoxetine HCL 60 MG CAP PO SCH (09:22)
[2023-02-08] MEDS: METOPROLOL SUCC 25MG EXT REL TAB PO SCH (09:22)
[2023-02-08] MEDS: metFORMIN HCL 500 MG TAB PO SCH ×2 (09:23→17:23)
[2023-02-08] MEDS: PANTOprazole 40 MG TAB PO SCH (09:23)
[2023-02-08] MEDS: GABAPENTIN 600 MG TAB PO SCH ×3 (09:23→20:07)
[2023-02-08] MEDS: guaiFENesin 600 MG TABCR PO SCH ×2 (09:23→20:08)
[2023-02-08] MEDS: ASPIRIN 81 MG ECTAB PO SCH (09:24)
[2023-02-08] MEDS: NYSTATIN SUSP 500,000 U/5 ML UDC PO SCH ×4 (09:24→20:08)
[2023-02-08] MEDS: ATORVASTATIN 40 MG TAB PO SCH (09:24)
[2023-02-08] MEDS: ROFLUMILAST 500 MCG TAB PO SCH (09:24)
[2023-02-08] MEDS: ENOXAPARIN INJ 40 MG/0.4 ML SYR SQ SCH (09:25)
[2023-02-08] MEDS: LIDOCAINE 5% 1 PATCH TD SCH (09:25)
[2023-02-08] MEDS ORDERED: SODIUM CHLOR 7% 4 ML NEB NEB STA (20:01)
[2023-02-08] MEDS: TAMSULOSIN HCL 0.4 MG CAP PO SCH (20:09)
[2023-02-09] MEDS: cefTRIAXone SODIUM 1,000 MG in DEXTROSE 5% AD-VAN 50 ML IV SCH (00:09)
[2023-02-09] MEDS: AZITHROMYCIN 500 MG in DEXTROSE 5% 250 ML IV SCH (00:12)
[2023-02-09] MEDS: IPRATROPIUM BROMIDE NEB SOLN 0.02% 2.5 ML VIAL INH SCH ×4 (00:20→20:39)
[2023-02-09] MEDS: LEVALBUTEROL HCL 0.63 MG/3 ML NEB NEB SCH ×4 (00:20→20:39)
[2023-02-09] MEDS: HYDROCORTISONE SOD 50 MG in SYRINGE 0 ML IV SCH ×4 (02:41→20:00)
[2023-02-09 06:43] LABS: Hematocrit (blood only) 40.6 % (42.0-52.0); Hemoglobin 13.2 g/dl (14.0-18.0); Mean Corpuscular Hemoglobin 28.9 pg (25.0-34.0); Mean Corpuscular Hgb Conc 32.5 g/dL (32.0-36.0); Mean Platelet Volume 9.6 fL (9.4-12.4); Platelet Count 246 K/uL (130-400); RDW Standard Deviation 54.9 fL (36.4-46.3); Red Blood Count 4.56 M/uL (4.70-6.10); White Blood Count 7.49 K/ul (4.8-10.8)
--- NOTE | 2023-02-09 06:59 | Hospitalist Progress Note ---
Date of Service February 08, 2023 Assessment & Plan (1) COPD, group D, by GOLD 2017 classification: Plan: Advanced COPD with emphysema, hypoxic respiratory failure (with activity) and h/o non-small cell lung ca Acute on chronic/stable - mod risk (high risk for respiratory failure d/t pt noncompliance with wearing O2) - Admitted with hypercapnic respiratory failure based on vbg, however, pt has not required any respiratory interventions such as bipap -Borderline hypoxia, 94% on room air fatigues easily - Continue tapering Prednisone, currently on 7.5mg daily.? Element of adrenal insufficiency in the setting of prednisone taper and hypotension/tachycardia. Will increase and see if this improves his hemodynamics. - Continue pulmonary toilet with Xopenex/atrovent, Pulmicort and Perforomist, and Mucinex - Goal pulse ox 88-92% - per Dr. Alicia's last note, he is to be wearing 2L O2 with exertion but doesn't wear it due to lack of SMALL portable concentrator - This was looked into, these devices are not covered by insurance - Pt admits that he is NOT wearing his O2 with activity due to the size of the concentrators, reiterated that he is risking respiratory failure which could lead to cardiopulmonary arrest, he verbalized understanding of this - Pt started on empiric Levaquin for possible developing PNA - CT obtained, no evidence of PNA, remains afebrile, Levaquin discontinued - Sputum culture pending, gram stain shows many polys, few epi cells, many GPC, GPB, and few yeast Patient continues to be tachycardic. At this point, Not sure of the cause. EKG appears to be sinus. will transfer to PCU on 02/06 to keep him on monitor to beatter assess his trend. On 02/07, continues to be tachycardic. Patient has been tachycardic since admission but this appears to be worsening. It appears his beta checo has been held due to low Blood pressure. This could be perhaps rebound tachycardia from not taking his metoprolol for 72 hours. Now that BP is better with corticosteroids as his cortisol levels were low, he will take his metorpolol today. will also order ct chest and doppler ultrasound to rule out PE Patient has been getting work up for a positive pet scan that showed a lesion in the gastric fundus, awaiting repeat outpatient EGD. will obtain 24 hour metanephrine collection. will continue prednsione as BP is better controlled. will order 20 mg PO prednsione for 5 days. On 02/08 HR appears better controlled. BUt Blood presure remains on the lower side of the spectrum. Will increase corticosteroid replacement and order hydrocortisone 50 mg IV Q6h Reviewed CT scan, no P/E. D/W pulm, no signs of infectious process. however, given slow improvement, will add rocephin and azithromycin for possible COPD exacerbation. doubt PJP. will order LDH. ordered sputum culture and hypertonic saline. May consider discuss with endo on Thursday, given his persistent hypotension, and low cortisol. (2) Throat burning: Plan: Acute/unstable - uncertain risk - Previous h/o thrush, exam today does note plaques c/w thrush - Discussed with speech therapy, formal consult placed, but given evidence of thrush, no instrumental assessment until he has completed treatment for thrush -Continue on Nystatin 5mL swish and swallow - Tracheal thickening noted on CT, would benefit from ENT eval on dc. Nurse Jayme aware/arranging (3) Headache: Plan: Acute/stable/resolved - Patient reports seldom gets headaches but does have pain in the base/back of his neck - Suspect that this is MSK and is the cause of his headache - Continue Lidoderm patches, increase APAP to 1g TID prn, and Toradol (4) Abnormal gastrointestinal PET scan: Plan: Acute/stable - 2.5 cm hypermetabolic focus seen in the gastric fundus - Underwent EGD/colo - found to have a bezoar - Scheduled for gastric emptying study February 25, 2023 (5) Type 2 diabetes mellitus: Plan: Chronic/stable - NIDDM - Controlled with Metformin 500mg BID at home - Hemoglobin a1c 6.9% 01/12/23 - Continue Metformin, continue diabetic diet, check BSG AC and HS Admission and Anticipated Discharge Date Admission Date: February 02, 2023 Subjective Patient reports that he is breathing better. He is no longer coughing up dark sputum and states it iswhite and clear. He reports he wa sable to walk to the bathroom with less SOB. Review of Systems Review of Systems: All systems reviewed & are unremarkable except as noted in HPI & below Physical Exam Physical Exam: General: A&Ox3. NAD. Cooperative. HEENT: Atraumatic, normocephalic. Vision and hearing grossly intact Pulm: diminished. Symmetrical chest rise. No increased work of breathing. No respiratory distress. Cardiac: RRR, -mrg. Radial pulses intact and symmetrical. Abdominal: Nontender, nondistended, soft. BS present. Extremities: Thin Results & Data Results & Data Vital Signs (Past 12 Hours) Vital Signs Temp Pulse Resp BP Pulse Ox O2 Del Method 02/09/23 03:00 36.6 C 116 H 19 91/60 L 90 Room Air 02/09/23 00:21 115 H 18 94 Room Air 02/08/23 23:00 36.9 C 110 H 21 100/67 97 Room Air 02/08/23 20:38 Room Air 02/08/23 19:00 36.3 C L 111 H 19 92/62 L 96 Room Air 02/08/23 19:14 95 H 18 94 Room Air PG Care Time/CCT Total # of Minutes Spent Total Time Spent with Patient: Total time spent is greater than 50% in coordination of care (as documented) at patient's floor/unit and/or counseling patient: Coding Level of Care Code 35350 SUB INP/OBS CARE 3/50MIN Diagnoses COPD, group D, by GOLD 2017 classification J44.9 Throat burning R07.0 Headache R51.9 Headache chronicity pattern: acute headache Headache type: unspecified Intractability: not intractable Abnormal gastrointestinal PET scan R94.8 Type 2 diabetes mellitus E11.9 (3) Headache Headache chronicity pattern: acute headache Headache type: unspecified Intractability: not intractable Qualified Code(s): R51.9 - Headache, unspecified
[2023-02-09] MEDS: BUDESONIDE 0.5 MG/2 ML VIAL (PULMICORT) NEB SCH ×2 (07:02→20:37)
[2023-02-09] MEDS: FORMOTEROL 20 MCG/2 ML VIAL NEB SCH ×2 (07:02→20:37)
[2023-02-09] MEDS: ENOXAPARIN INJ 40 MG/0.4 ML SYR SQ SCH (07:55)
[2023-02-09] MEDS: GABAPENTIN 600 MG TAB PO SCH ×3 (07:55→20:00)
[2023-02-09] MEDS: ATORVASTATIN 40 MG TAB PO SCH (07:56)
[2023-02-09] MEDS: NYSTATIN SUSP 500,000 U/5 ML UDC PO SCH ×4 (07:58→20:00)
[2023-02-09] MEDS: guaiFENesin 600 MG TABCR PO SCH ×2 (07:58→20:00)
[2023-02-09] MEDS: ROFLUMILAST 500 MCG TAB PO SCH (07:59)
[2023-02-09] MEDS: metFORMIN HCL 500 MG TAB PO SCH ×2 (07:59→17:48)
[2023-02-09] MEDS: DULoxetine HCL 60 MG CAP PO SCH (07:59)
[2023-02-09] MEDS: PANTOprazole 40 MG TAB PO SCH (07:59)
[2023-02-09] MEDS: ASPIRIN 81 MG ECTAB PO SCH (07:59)
[2023-02-09] MEDS: METOPROLOL SUCC 25MG EXT REL TAB PO SCH ×2 (08:32→19:59)
[2023-02-09] MEDS: LIDOCAINE 5% 1 PATCH TD SCH (08:33)
--- NOTE | 2023-02-09 14:21 | Hospitalist Progress Note ---
Date of Service February 09, 2023 Assessment & Plan (1) COPD, group D, by GOLD 2017 classification: Plan: Advanced COPD with emphysema, hypoxic respiratory failure (with activity) and h/o non-small cell lung ca Acute on chronic/stable - mod risk (high risk for respiratory failure d/t pt noncompliance with wearing O2) - Admitted with hypercapnic respiratory failure based on vbg, however, pt has not required any respiratory interventions such as bipap -Borderline hypoxia, 94% on room air fatigues easily Finally feeling improved now with IV hydrocortisone and addition of ceftriaxone and azithromycin on 02/08 Sputum culture from 02/03 was negative, sputum culture from 02/09 is pending [employer] respiratory panel negative on admission CRP, procalcitonin, ESR all normal -Continue IV hydrocortisone and taper down to prednisone burst and long taper back to home dose of 7.5 Mg p.o. once daily - Continue pulmonary toilet with Xopenex/atrovent, Pulmicort and Perforomist, and Mucinex - Goal pulse ox 88-92% - per Dr. Alicia's last note, he is to be wearing 2L O2 with exertion but doesn't wear it due to lack of SMALL portable concentrator- This was looked into, these devices are not covered by insurance - Pt admits that he is NOT wearing his O2 with activity due to the size of the concentrators, reiterated that he is risking respiratory failure which could lead to cardiopulmonary arrest, he verbalized understanding of this -Initially placed on empiric Levaquin for possible developing PNA - CT obtained, no evidence of PNA, remains afebrile, Levaquin discontinued-now on ceftriaxone and azithromycin -Continue Roflumilast -Needs follow-up with pulmonology after discharge, may benefit from pulmonary rehab (2) Sinus tachycardia: Plan: On 02/07, was noted to be tachycardic. It was noted that his metoprolol had been on hold since admission for lower blood pressures CT chest and venous Doppler negative for PE and DVT will obtain 24 hour metanephrine urine collection and serum are pending Blood pressures were a bit low and are now improved with IV steroids-likely component of adrenal insufficiency, however cortisol is low in the setting of chronic steroid use and likely not indicative of true cortisol deficiency Metoprolol was given on 02/07, but then was held on 02/08-02/09 for lower blood pressures due to parameters -Will lower dose of Toprol-XL to 25 Mg once daily, first dose now on the evening of 02/09 (3) Headache: Plan: Acute/stable/resolved - Patient reports seldom gets headaches but does have pain in the base/back of his neck on admission which is now resolved - Suspect that this is MSK and is the cause of his headache - Continue Lidoderm patches, APAP 1g TID prn (4) Abnormal gastrointestinal PET scan: Plan: Acute/stable - 2.5 cm hypermetabolic focus seen in the gastric fundus - Underwent EGD/colo - found to have a bezoar - Scheduled for gastric emptying study February 25, 2023 but got this moved up to Sunday 02/11 while inpatient if still here -Needs repeat EGD after gastric emptying study (5) Type 2 diabetes mellitus: Plan: Chronic/stable - NIDDM - Controlled with Metformin 500mg BID at home - Hemoglobin a1c 6.9% 01/12/23 - Continue Metformin, continue diabetic diet, check BSG AC and HS (6) Oral candidiasis: Plan: With exudate on tongue and buccal mucosa-continue nystatin swish and swallow x14-day course (7) Depression: Plan: Continue home duloxetine (8) CAD (coronary artery disease): Plan: No acute issues Continue home aspirin, atorvastatin, metoprolol (9) Acute and chronic respiratory failure: Plan: With hypoxia and hypercapnia Treating COPD exacerbation as above, continue supplemental O2 Reassess oxygen needs with a two-step walk test prior to discharge (10) GERD (gastroesophageal reflux disease): Plan: Continue Protonix Plan DVT prophylaxis-Lovenox SQ Disposition-continued stay for sinus tachycardia, dyspnea on exertion. Will need a two-step walk test prior to discharge to reassess home O2 needs. Hopeful discharge to home in the next 2 days. Admission and Anticipated Discharge Date Admission Date: February 02, 2023 Subjective Patient reports feeling a little bit better today. Not as much sputum production. Feels that the addition of antibiotics has helped him, but I also feel that the addition of steroids over the last 2 days has helped him as well. Telemetry with sinus tachycardia with rates in the 110s Physical Exam Constitutional: WD/WN, vitals as above ENMT: Mouth: + oral mucosal abnormality (Tongue and buccal mucosa with white plaques) Respiratory: normal respiratory effort; no cough and not tachypneic Auscultation: + diminished lung sounds (Throughout); no crackles, no rhonchi and no wheezes Cardiovascular: Rate/Rhythm: regular rhythm and + tachycardic Heart Sounds: no murmur Gastrointestinal (Abdomen): normal bowel sounds, soft, nontender, no hepatosplenomegaly Psychiatric: Orientation: alert, oriented x 3 and cooperative Affect: + anxious affect Results & Data Results & Data Vital Signs (Past 12 Hours) Vital Signs Temp Pulse Pulse Pulse Resp BP Pulse Ox 02/09/23 13:05 114 H 18 95 02/09/23 12:13 36.5 C 112 H 18 99/61 L 92 02/09/23 08:00 02/09/23 07:40 36.4 C L 112 H 19 94/60 L 94 02/09/23 07:30 131 H 02/09/23 07:05 114 H 18 94 02/09/23 03:00 36.6 C 116 H 19 91/60 L 90 O2 Del Method 02/09/23 13:05 Room Air 02/09/23 12:13 Room Air 02/09/23 08:00 Room Air 02/09/23 07:40 Room Air 02/09/23 07:30 02/09/23 07:05 Room Air 02/09/23 03:00 Room Air Laboratory Results CBC, LDH, BMP, CRP, ESR, procalcitonin reviewed PG Care Time/CCT Total # of Minutes Spent Total Time Spent with Patient: Total time spent is greater than 50% in coordination of care (as documented) at patient's floor/unit and/or counseling patient: Coding Level of Care Code 39172 SUB INP/OBS CARE 235MIN Diagnoses COPD, group D, by GOLD 2017 classification J44.9 Sinus tachycardia R00.0 Headache R51.9 Headache chronicity pattern: acute headache Headache type: unspecified Intractability: not intractable Abnormal gastrointestinal PET scan R94.8 Type 2 diabetes mellitus E11.9 Oral candidiasis B37.0 Depression F32.9 CAD (coronary artery disease) I25.10 Acute and chronic respiratory failure J96.20 GERD (gastroesophageal reflux disease) K21.9 Esophagitis presence: esophagitis presence not specified (3) Headache Headache chronicity pattern: acute headache Headache type: unspecified Intractability: not intractable Qualified Code(s): R51.9 - Headache, unspecified (10) GERD (gastroesophageal reflux disease) Esophagitis presence: esophagitis presence not specified Qualified Code(s): K21.9 - Gastro-esophageal reflux disease without esophagitis
[2023-02-09] MEDS: TAMSULOSIN HCL 0.4 MG CAP PO SCH (20:01)
[2023-02-10] MEDS: cefTRIAXone SODIUM 1,000 MG in DEXTROSE 5% AD-VAN 50 ML IV SCH ×2 (00:19→22:26)
[2023-02-10] MEDS: IPRATROPIUM BROMIDE NEB SOLN 0.02% 2.5 ML VIAL INH SCH ×4 (00:45→19:51)
[2023-02-10] MEDS: LEVALBUTEROL HCL 0.63 MG/3 ML NEB NEB SCH ×4 (00:45→19:51)
--- NOTE | 2023-02-10 01:10 | Billing Data ---
Date of Service February 10, 2023 Coding Level of Care Code 15845 INT INP/OBS CARE
[2023-02-10] MEDS: HYDROCORTISONE SOD 50 MG in SYRINGE 0 ML IV SCH ×2 (01:58→07:55)
[2023-02-10] MEDS: AZITHROMYCIN 500 MG in DEXTROSE 5% 250 ML IV SCH ×2 (01:58→23:07)
[2023-02-10] MEDS: ONDANSETRON INJ 2 MG/ML 2 ML VIAL IV PRN (03:38)
[2023-02-10] MEDS: BUDESONIDE 0.5 MG/2 ML VIAL (PULMICORT) NEB SCH ×2 (06:54→19:50)
[2023-02-10] MEDS: FORMOTEROL 20 MCG/2 ML VIAL NEB SCH ×2 (06:54→19:50)
[2023-02-10] MEDS: LIDOCAINE 5% 1 PATCH TD SCH (07:51)
[2023-02-10] MEDS: METOPROLOL SUCC 25MG EXT REL TAB PO SCH (07:52)
[2023-02-10] MEDS: ASPIRIN 81 MG ECTAB PO SCH (07:55)
[2023-02-10] MEDS: guaiFENesin 600 MG TABCR PO SCH ×2 (07:56→20:39)
[2023-02-10] MEDS: NYSTATIN SUSP 500,000 U/5 ML UDC PO SCH ×4 (07:56→20:40)
[2023-02-10] MEDS: GABAPENTIN 600 MG TAB PO SCH ×3 (07:56→20:39)
[2023-02-10] MEDS: ROFLUMILAST 500 MCG TAB PO SCH (07:57)
[2023-02-10] MEDS: DULoxetine HCL 60 MG CAP PO SCH (07:57)
[2023-02-10] MEDS: PANTOprazole 40 MG TAB PO SCH (07:57)
[2023-02-10] MEDS: metFORMIN HCL 500 MG TAB PO SCH ×2 (07:58→17:28)
[2023-02-10] MEDS: ATORVASTATIN 40 MG TAB PO SCH (07:58)
[2023-02-10] MEDS: ENOXAPARIN INJ 40 MG/0.4 ML SYR SQ SCH (07:59)
[2023-02-10] MEDS ORDERED: predniSONE 20 MG TAB PO ONE (13:45)
[2023-02-10] MEDS: TAMSULOSIN HCL 0.4 MG CAP PO SCH (20:40)
--- NOTE | 2023-02-10 21:53 | Hospitalist Progress Note ---
Date of Service February 10, 2023 Assessment & Plan (1) Acute hypercapnic respiratory failure: Plan: 62 y/o M w/ PmHx non-small cell lung cancer stage IV, BPH, Prostate cancer s/p chemo/radiation, STEMI, CAD, severe COPD Gold classification D, avascular necrosis of b/l hip, vitamin B12 deficiency, allergic rhinitis, GERD, dyslipidemia, T2DM, neuroapthy, anxiety admitted for acute COPD exacerbation. Acute hypercapnic respiratory failure/COPD Class D GOLD: -PFT from 07/30/22 show severe COPD. -Worsening SoB, not using any home O2. -VBG pH 7.30, CO2 65. procal negative. CBC unremarkable. -CXR w/o evidence for pneumonia. Respiratory panel negative. -01/06 patient decreased prednisone from 10mg daily to 7.5mg daily. -No other obvious triggers for current exacerbation. Usually 4 exacerbations per year. -Given 10mg dexamethasone, mg sulfate, albuterol nebulizer treatment in ED. -Continue on Duoneb q6, Pulmicort 0.5mg BID, Perforomist 20mcg neb BID, Mucinex 1.2g BID. -Continue home prednisone 7.5mg, if no improvement can increase back up to 10mg or 40mg for acute exacerbation. However patient would benefit at trying to contain current exacerbation with as minimal oral steroid use as possible given attempt to wean off chronic steroid use. -No evidence of infection on CXR, can add Azithromycin for anti-inflammatory effect if above regimen not effective. -Monitor on med/tele. -will cut back on hydrocortisone from 50 mg q6h. This was stopped at around noon on 02/10 Will taper his steroids to prednisone 20mg and will quickly taper this each day. Will monitor is HR and blood pressure. Headache: -Pain/tenderness across posterior neck. -Head CT negative for acute process, tender to palpation. -Most likely MSK in nature. -Continue Tylenol, can trial Fioricet. -Ordered lidocaine patch. CAD/HTN/Hx of STEMI/Dyslipdemia: -Continue home ASA 81mg daily, atorvastatin, metoprolol. Neuropathy: -Continue home gabapentin. GERD: -Continue home omeprazole. Allergic rhinitis: -Continue home azelastine. T2DM: -A1c 6.9 this month, 133 on arrival. -Can add insulin regimen if glucoses become elevated. History of non-small cell lung cancer: -follows with oncology outpatient. Noted. History of prostate cancer: -Follows with urology outpatient. Noted. Depression/Anxiety: -continue home Duloxetine. F/E/N/GI: Carb consistent T2DM. DVT Prophylaxis: Lovenox 40mg qAM. Code status: DNR, intubation if not on ventilator chronically. Dispo: Med/tele (2) Headache: (3) Neuropathy: (4) Anxiety: (5) Non-small cell lung cancer: (6) Allergic rhinitis: (7) GERD (gastroesophageal reflux disease): (8) Presence of drug coated stent in left circumflex coronary artery: (9) Dyslipidemia, goal LDL below 70: (10) COPD, group D, by GOLD 2017 classification: (11) Hypertension: (12) Type 2 diabetes mellitus: (13) CAD (coronary artery disease): (14) Prostate cancer: (15) STEMI (ST elevation myocardial infarction): (16) Depression: (17) History of lung cancer: Admission and Anticipated Discharge Date Admission Date: February 02, 2023 Subjective Patient reports feeling better today. He is not quite at baseline but feels stronger today. Review of Systems Review of Systems: All systems reviewed & are unremarkable except as noted in HPI & below Physical Exam Physical Exam: General: A&Ox3. NAD. Cooperative. HEENT: Atraumatic, normocephalic. Vision and hearing grossly intact Pulm: diminished. Symmetrical chest rise. No increased work of breathing. No respiratory distress. Cardiac: RRR, -mrg. Radial pulses intact and symmetrical. Abdominal: Nontender, nondistended, soft. BS present. Extremities: Thin Results & Data Results & Data Vital Signs (Past 12 Hours) Vital Signs Temp Pulse Pulse Pulse Resp BP BP 02/10/23 19:50 18 02/10/23 19:18 02/10/23 19:45 36.8 C 109 H 18 108/67 02/10/23 18:04 71 92/57 L 02/10/23 15:50 36.4 C L 110 H 17 87/50 L 02/10/23 15:17 109 H 02/10/23 14:13 91/58 L 02/10/23 13:19 113 H 18 02/10/23 12:18 36.4 C L 109 H 18 87/58 L Pulse Ox O2 Del Method 02/10/23 19:50 96 Room Air 02/10/23 19:18 Room Air 02/10/23 19:45 98 Room Air 02/10/23 18:04 02/10/23 15:50 92 Room Air 02/10/23 15:17 02/10/23 14:13 02/10/23 13:19 93 Room Air 02/10/23 12:18 93 Room Air PG Care Time/CCT Total # of Minutes Spent Total Time Spent with Patient: Total time spent is greater than 50% in coordination of care (as documented) at patient's floor/unit and/or counseling patient: Coding Level of Care Code 57767 SUB INP/OBS CARE 2/35MIN Diagnoses Acute hypercapnic respiratory failure J96.02 Headache R51.9 Headache chronicity pattern: acute headache Headache type: unspecified Intractability: not intractable Neuropathy G62.9 Anxiety F41.9 Non-small cell lung cancer C34.90 Allergic rhinitis J30.9 GERD (gastroesophageal reflux disease) K21.9 Esophagitis presence: esophagitis presence not specified Presence of drug coated stent in left circumflex coronary artery Z95.5 Dyslipidemia, goal LDL below 70 E78.5 COPD, group D, by GOLD 2017 classification J44.9 Hypertension I10 Type 2 diabetes mellitus E11.9 CAD (coronary artery disease) I25.10 Prostate cancer C61 STEMI (ST elevation myocardial infarction) I21.3 Depression F32.9 History of lung cancer Z85.118 (2) Headache Headache chronicity pattern: acute headache Headache type: unspecified Intractability: not intractable Qualified Code(s): R51.9 - Headache, unspecified (7) GERD (gastroesophageal reflux disease) Esophagitis presence: esophagitis presence not specified Qualified Code(s): K21.9 - Gastro-esophageal reflux disease without esophagitis
[2023-02-11] MEDS ORDERED: LEVALBUTEROL 1.25 MG/3 ML NEB ONE ×2 (06:52→13:36)
[2023-02-11] MEDS: FORMOTEROL 20 MCG/2 ML VIAL NEB SCH (06:57)
[2023-02-11] MEDS: BUDESONIDE 0.5 MG/2 ML VIAL (PULMICORT) NEB SCH (06:58)
[2023-02-11] MEDS: IPRATROPIUM BROMIDE NEB SOLN 0.02% 2.5 ML VIAL INH SCH ×3 (06:58→13:37)
[2023-02-11] MEDS: LEVALBUTEROL HCL 0.63 MG/3 ML NEB NEB SCH ×3 (07:27→13:37)
[2023-02-11 08:39] VITALS: TEMP 98.1
[2023-02-11] MEDS ORDERED: predniSONE 20 MG TAB PO ONE (09:00)
[2023-02-11] MEDS: metFORMIN HCL 500 MG TAB PO SCH (11:26)
[2023-02-11] MEDS: guaiFENesin 600 MG TABCR PO SCH (11:26)
[2023-02-11] MEDS: GABAPENTIN 600 MG TAB PO SCH ×2 (11:26→13:14)
[2023-02-11] MEDS: NYSTATIN SUSP 500,000 U/5 ML UDC PO SCH ×2 (11:27→13:14)
--- NOTE | 2023-02-11 13:00 | Nuclear Medicine Report ---
NM gastric emptying study CLINICAL HISTORY: abnormal EGD,food retention TECHNIQUE: The patient was given food with 1 mCi of Tc 99m labeled sulfur colloid. Sequential images centered on the stomach were obtained immediately following the meal, then at 1, 2, and 4 hours follo wing the meal. All imaging was performed in the upright position. This is a solid phase study. COMPARISON: None. FINDINGS: The geometric mean remaining tracer was 100%, 98, and 77 %at 1 hour, 2 hours, and 4 hours r espectively. The normal values for gastric retention are 30-90%, 30-60%, and 10% respectively. IMPRESSION: Significantly delayed gastric emptying. ACT 112: Negative or not required by law. Electronically signed by: Antonio Messina M.D. 02/11/2023 12:59 PM
[2023-02-11] MEDS: ASPIRIN 81 MG ECTAB PO SCH (13:12)
[2023-02-11] MEDS: DULoxetine HCL 60 MG CAP PO SCH (13:12)
[2023-02-11] MEDS: ENOXAPARIN INJ 40 MG/0.4 ML SYR SQ SCH (13:12)
[2023-02-11] MEDS: ATORVASTATIN 40 MG TAB PO SCH (13:12)
[2023-02-11] MEDS: LIDOCAINE 5% 1 PATCH TD SCH (13:13)
[2023-02-11] MEDS: PANTOprazole 40 MG TAB PO SCH (13:13)
[2023-02-11] MEDS: METOPROLOL SUCC 25MG EXT REL TAB PO SCH (13:13)
[2023-02-11] MEDS: ROFLUMILAST 500 MCG TAB PO SCH (13:14)
[2023-02-11 13:40] VITALS: O2SAT 96
--- NOTE | 2023-02-11 16:13 | Discharge Summary ---
Date of Service February 11, 2023 Admission HPI Per Admitting Provider Isak is a 62 y/o M w/ Pmhx non-small cell lung cancer stage IV, BPH, Prostate cancer s/p chemo/radiation, STEMI, CAD, severe COPD Gold classification D, avascular necrosis of b/l hip, vitamin B12 deficiency, allergic rhinitis, GERD, dyslipidemia, T2DM, neuroapthy, anxiety coming into the emergency department for worsening shortness of breath over the past 2 days. Patient states he has a long history of COPD and feeling short of breath however it was more recently worsened even at rest over the past 2 days. It got to a point where he felt he couldn't breathe very well and so decided to come to the ED. He is supposed to use home oxygen with exertion however he states that he has not used it since he has not received the small portable oxygen, only 4 tanks that are in his daughters room. He denies any fevers, chills, chest pain, diarrhea, dysuria however does endorse increased frequency. Patient also endorses a headache at the back of the neck area for the past 2 days as well. He has not tried any tylenol or ibuprofen for the headache. In the ED he was given Tylenol 1g IV, albuterol nebulizer, 10mg dexamethasone, magnesium sulfate, and morphine 4mg. CBC unremarkable, VBG acidotic 7.30, CO2 65, procal negative, respiratory panel negative. CXR with some mild pulmonary interstitial markings but otherwise unremarkable for consolidations. CT head without any acute processes. Principal Diagnosis COPD exaxcerbation Discharge Exam General: A&Ox3. NAD. Cooperative. HEENT: Atraumatic, normocephalic. Vision and hearing grossly intact Pulm: diminished. Symmetrical chest rise. No increased work of breathing. No respiratory distress. Cardiac: RRR, -mrg. Radial pulses intact and symmetrical. Abdominal: Nontender, nondistended, soft. BS present. Extremities: Thin Discharge Data Allergies Allergy/AdvReac Type Severity Reaction Status Date / Time No Known Allergies Allergy Verified 02/02/23 02:03 Consultations 02/02/23 01:06 ED Decision to Admit Stat Ordered Studies 02/01/23 23:04 CT head/brain wo con Stat 02/03/23 09:48 CT chest diagnostic wo con Urgent 02/07/23 09:06 CT angio chest PE protocol Urgent US venous doppler [facility] Urgent Hospital Course (1) Acute hypercapnic respiratory failure: 62 y/o M w/ PmHx non-small cell lung cancer stage IV, BPH, Prostate cancer s/p chemo/radiation, STEMI, CAD, severe COPD Gold classification D, avascular necrosis of b/l hip, vitamin B12 deficiency, allergic rhinitis, GERD, dys lipidemia, T2DM, neuroapthy, anxiety admitted for acute COPD exacerbation. Acute hypercapnic respiratory failure/COPD Class D GOLD: -PFT from 07/30/22 show severe COPD. -Worsening SoB, not using any home O2. -VBG pH 7.30, CO2 65. procal negative. CBC unremarkable. -CXR w/o evidence for pneumonia. Respiratory panel negative. -01/06 patient decreased prednisone from 10mg daily to 7.5mg daily. -No other obvious triggers for current exacerbation. Usually 4 exacerbations per year. -Given 10mg dexamethasone, mg sulfate, albuterol nebulizer treatment in ED. -Continue on Duoneb q6, Pulmicort 0.5mg BID, Perforomist 20mcg neb BID, Mucinex 1.2g BID. -Continue home prednisone 7.5mg, if no improvement can increase back up to 10mg or 40mg for acute exacerbation. However patient would benefit at trying to contain current exacerbation with as minimal oral steroid use as possible given attempt to wean off chronic steroid use. -No evidence of infection on CXR, -will continue abx cephalosporin and completed azithromycin for copd exacerbation. -start azithromycin MWF -will cut back on hydrocortisone from 50 mg q6h. This was stopped at around noon on 02/10 Will taper his steroids to prednisone 20mg and will quickly taper this each day will resume prednisone at 7.5mg Will monitor is HR and blood pressure. Headache: -Pain/tenderness across posterior neck. -Head CT negative for acute process, tender to palpation. -Most likely MSK in nature. -Continue Tylenol, can trial Fioricet. -Ordered lidocaine patch. -improved. CAD/HTN/Hx of STEMI/Dyslipdemia: -Continue home ASA 81mg daily, atorvastatin, metoprolol. will cut back metoprolol to 50 mg PO PM Neuropathy: -Continue home gabapentin. GERD: -Continue home omeprazole. Allergic rhinitis: -Continue home azelastine. T2DM: -A1c 6.9 this month, 133 on arrival. -Can add insulin regimen if glucoses become elevated. History of non-small cell lung cancer: -follows with oncology outpatient. Noted. History of prostate cancer: -Follows with urology outpatient. Noted. Depression/Anxiety: -continue home Duloxetine. \ (2) Headache: (3) Neuropathy: (4) Anxiety: (5) Non-small cell lung cancer: (6) Allergic rhinitis: (7) GERD (gastroesophageal reflux disease): (8) Presence of drug coated stent in left circumflex coronary artery: (9) Dyslipidemia, goal LDL below 70: (10) COPD, group D, by GOLD 2017 classification: (11) Hypertension: (12) Type 2 diabetes mellitus: (13) CAD (coronary artery disease): (14) Prostate cancer: (15) STEMI (ST elevation myocardial infarction): (16) Depression: (17) History of lung cancer: Total Time Total Time Spent Total Time Spent (In Minutes): 35 Discharge Plan Discharge Items Patient Disposition: Home - Self-Care Reason For Visit: SHORTNESS OF BREATH Discharge Diagnosis: Shortness of breath Activity: Resume your previous activity Non-emergency contact: Primary Care Provider Call non-emergency contact if: you have any medication questions Follow-up/Referrals: Nathalia Alicia MD, FCCP [Physician] - 04/15/23 3:30 pm (follow up with Dr Yang April 15, 2023 @ 3:30pm) Cody Ramirez, [Primary Care Provider] - 02/17/23 1:00 pm Diet: Carb Consistent or DM2 Addtl Attending Provider Instructions: please continue current medications. Please followup with PCP in 1-2 weeks Please followup with Pulmonary within 1-2 months. Pending Studies at Discharge: No Stand-Alone Forms: My [facility] [employer], Smoking Cessation Medications and DC Order Prescriptions: New nystatin 100,000 unit/mL Suspension 5 ml PO QID 5 Days Qty: 100 0RF tamsulosin 0.4 mg Capsule 0.4 mg PO QPM Qty: 30 0RF azithromycin 250 mg tablet 250 mg PO MOWEFR Qty: 18 0RF cefuroxime axetil 500 mg tablet 500 mg PO BID Qty: 6 0RF Continued (DME) lancets [OneTouch Delica Lancets] 30 gauge misc See Rx Instructions .Route Qty: 100 3RF Rx Instructions: use once daily (DME) OneTouch Verio test strips Strip See Rx Instructions .Route Qty: 100 3RF Rx Instructions: test once daily. azelastine 137 mcg (0.1 %) aerosol,spray 1 spray intranasal BID PRN (Reason: ALLERGIC RHINITIS) Qty: 90 5RF Patient Comments: USUALLY USES EVERY DAY Rx Instructions: USE 1 SPRAY INTRANASALLY TWICE A DAY NEEDED FOR ALLERGIC RHINITIS. ADMINISTER INTO EACH NOSTRIL. gabapentin 600 mg tablet 600 mg PO TID 30 Days Qty: 90 5RF Incruse Ellipta 62.5 mcg/actuation blister with device 1 inh INH QPM Qty: 3 1RF Rx Instructions: 10 PM albuterol sulfate 90 mcg/actuation HFA aerosol inhaler 2 puff inhalation Q6H PRN (Reason: Shortness Of Breath Or Wheezing) Qty: 18 3RF prednisone 2.5 mg tablet 7.5 mg PO DAILY 90 Days Qty: 270 0RF (DME) Portable Oxygen Misc See Rx Instructions .MEDSUPPLY Qty: 1 0RF Rx Instructions: Oxygen 2 liters continuous via nasal cannula on exertion with portable concentrator. NOELLE 99 albuterol sulfate 2.5 mg /3 mL (0.083 %) solution for nebulization 2.5 mg inhalation Q4H PRN (Reason: COPD) Qty: 180 5RF ipratropium bromide 0.02 % solution 2.5 ml inhalation Q4H PRN (Reason: COPD) Qty: 180 5RF atorvastatin 80 mg tablet 80 mg PO QAM Rx Instructions: TAKE 1 TABLET BY MOUTH EVERY DAY omeprazole 40 mg capsule,delayed release(DR/EC) 40 mg PO QAM aspirin [Adult Low Dose Aspirin] 81 mg tablet,delayed release (DR/EC) 81 mg PO QAM duloxetine [Cymbalta] 60 mg capsule,delayed release(DR/EC) 60 mg PO QAM roflumilast [Daliresp] 500 mcg tablet 500 mcg PO QAM Patient Comments: Start using after 250 MCG tablets are done. fluticasone furoate-vilanterol [Breo Ellipta] 200-25 mcg/dose blister with device 1 inh inhalation QAM metformin 500 mg tablet 500 mg PO BID Rx Instructions: with meals Changed metoprolol succinate 50 mg tablet extended release 24 hr 50 mg PO PM Qty: 30 0RF Discharge Orders: Discharge Order (Routine); Ordered 02/11/23 Ordered By: Diego Franklin/Other Patient Handouts: High Blood Sugar (Hyperglycemia), Hypoglycemia (Low Blood Sugar), Managing Type 2 Diabetes Admission Data Admit Date/Time: 02/02/23 02:08 Attending Provider: Diego Becker Admit Provider: Braxton Hernandez Primary Care Provider: Cody Ramirez Other Providers: Rodo Ludwig ; Kemar Pak Other Interventions: Discharge Summary Assessment (RN) Last Done: 02/11/23 16:29 Coding Level of Care Code 15418 INP/OBS DISCH >30 MIN Diagnoses Acute hypercapnic respiratory failure J96.02 Headache R51.9 Headache chronicity pattern: acute headache Headache type: unspecified Intractability: not intractable Neuropathy G62.9 Anxiety F41.9 Non-small cell lung cancer C34.90 Allergic rhinitis J30.9 GERD (gastroesophageal reflux disease) K21.9 Esophagitis presence: esophagitis presence not specified Presence of drug coated stent in left circumflex coronary artery Z95.5 Dyslipidemia, goal LDL below 70 E78.5 COPD, group D, by GOLD 2017 classification J44.9 Hypertension I10 Type 2 diabetes mellitus E11.9 CAD (coronary artery disease) I25.10 Prostate cancer C61 STEMI (ST elevation myocardial infarction) I21.3 Depression F32.9 History of lung cancer Z85.118
[2023-02-11 16:46] VITALS: BP 97/67; PULSE 113
[2023-02-12] MEDS ORDERED: predniSONE 2.5 MG TAB PO SCH (09:00)
[2023-02-13 18:47] LABS: Metanephrine, Plasma <25 pg/mL (<=57); Normetanephrine Plasma 88 pg/mL (<=148); Total Metanephrine Plasma 88 pg/mL (<=205)
[2023-02-14 16:38] LABS: Normetanephrine, Ur 453 mcg/24 h (122-676); Total Metanephrine 548 mcg/24 h (224-832)
== END 2023-02-11 17:13 | disposition home or self-care (01) | DRG 190 ==
LOC: ED 22:37 → 2N 02-02 02:08 → SUATTDRO 02-02 02:08 → 2N 02-02 03:27 → 3N 02-03 22:41 → 4W 02-06 16:24

== ENCOUNTER 2024-01-20 18:23 | Inpatient (IN) ==
--- NOTE | 2024-01-20 18:33 | Emergency Department Note ---
Impression & Plan LLL pneumonia, Acute hypoxemic respiratory failure, COPD with acute exacerbation ED Provider Note NAME: NATY PERRY AGE: 63 SEX: M : 1960 ARRIVES VIA: Ambulance INFORMANT: Patient, ED PROVIDER(S): ED TEMP CHIEF COMPLAINT: Shortness of breath, hypoxia MEDICAL DECISION MAKING: Patient presents due to concern for respiratory distress and hypoxia and known history of COPD. IV was established and blood work was obtained. Patient was initially noted to be hypotensive which could be infection related but also secondary to the patient's recent nitro administration route. Additional lines were ordered along with sepsis protocols. Patient's blood work shows a white count of 12 and chest x-ray does show left lower lobe pneumonia. Patient was ordered Zosyn and MRSA swab. The patient's initial lactate was 4.8. Patient's blood pressure did improve with volume resuscitation. Patient clinically appears improved after several reassessments and is breathing better. Patient is now tolerating nasal cannula and not requiring higher levels of oxygen. Bio fire is negative. CT angiography of the chest completed which does show left- sided pneumonia without evidence of PE. Patient did receive 30 cc/kg bolus. The patient was ordered additional IV fluids due to the patient's tachycardia. I did speak with the on-call hospitalist service Dr. Snyder and the patient was admitted to the medicine service. Critical Care: I have personally spent 75 minutes of critical care time in direct management of this patient. This includes bedside care, interpretation of diagnostic studies, and testing, discussion with consultants, patient, and family members, and other require inpatient management activities. This 75 minutes is in excess of all separately billable procedures. Discussion w/ other healthcare providers: Dr. Snyder inpatient medicine service Prior /Outside records reviewed: I reviewed a palliative care note from Leonarda Fernando which showed the patient is DNR/DNI Differential diagnosis: Reactive airway disease, pneumonia, pneumothorax, COPD, CHF, ACS, pulmonary embolism, musculoskeletal, GERD as well as other pathologies were considered. Diagnostics, as interpreted by me: ECG: Sinus tachycardia, rate of 148, normal intervals, normal axis, ST depressions noted in the lateral leads versus motion artifact Cardiac monitoring: An order was placed for continuous cardiac monitoring. The monitor shows a rate of 120 with tachycardic and regular rhythm. Patient was placed on pulse oximetry Medical decision rules: None Imaging studies: I informally interpreted the patient's chest x-ray shows left lower lobe pneumonia with formal report to follow. HPI: Patient presents due to concern for worsening shortness of breath over the last 4 days with ALVARADO. The patient does have a known history of end-stage COPD. Patient does report being DNI. Patient has had associated chest pain that is left-sided constant nonradiating. Patient describes it as sharp in nature. No associated nausea vomiting. Patient reportedly did receive 2 nitro in route and did receive 2 DuoNeb's. Reportedly was 72% on room air and the patient does not wear oxygen at baseline. Patient denies any falls or trauma. PAST MEDICAL HISTORY: See Below PAST SURGICAL HISTORY: See Below SOCIAL HISTORY: See Below HOME MEDICATIONS: See Below ALLERGIES: See Below VITALS: See Below PHYSICAL EXAMINATION: GENERAL: Ill in appearance, in distress. EYE EXAM: Normal conjunctiva. PERRL, no anisocoria and EOM's grossly intact w/o pain. OROPHARYNX: Moist mucus membranes, grossly normal dentition. NECK: Trachea midline, no stridor. LUNGS: Decreased breath sounds throughout. Normal chest wall mechanics. HEART: NSR, no MRG. ABDOMEN: Abdomen soft, non-tender, no masses, no rebound or guarding. BACK: No CVA TTP. SKIN: No rashes and no bruising. UPPER EXTREMITIES: Upper extremities are grossly normal. LOWER EXTREMITIES: Grossly normal, no edema. Negative Homans' sign bilaterally. NEURO EXAM: A&O x3, cranial nerves II-XII grossly intact, normal speech, moves all 4 extremities. Past Med/Surg History Medical History Sleep disorder breathing Poor sleep Weakness generalized Pulmonary cachexia due to COPD Weight loss Palliative care by specialist Dyspnea and respiratory abnormalities End stage COPD History of tachycardia 01/06/23, recently seen in the [place] ER for tachycardia. Pt stated the doctor increased his metoprolol to 75mg daily. History of home oxygen therapy "USED WHEN I FIRST HAD IT, NOW I DON'T THINK IT HELPS, SO I DON'T USE IT VERY OFTEN" Chronic obstructive pulmonary disease Emphysema lung Hyperlipidemia Prostate cancer 2021; RADIATION TREATMENT, NO SX. STEMI (ST elevation myocardial infarction) (01/2021) 2020, BROUGHT TO [place] ER-"HAVING PAIN AND DIDN'T FEEL WELL"; FOLLOWS W/ [place] [facility] BPH with elevated PSA CAD (coronary artery disease) S/p stent 2020 S/p YARA to LCx 01/15/2021 Type 2 diabetes mellitus Neuropathy Stomach ulcer HX -UNDER CONTROL GERD (gastroesophageal reflux disease) SOB (shortness of breath) on exertion Asthma Depression Anxiety Hypertension History of pulmonary embolus (PE) 2016-NO ISSUES SINCE H/O pneumothorax Severe chronic obstructive pulmonary disease Evaluated for lung transplant, pulmonary function not sufficiently low at this time History of lung cancer (2011) NON SMALL CELL LUNG CANCER - STAGE IV DX 2011-LEFT LOBE/NO SURGERY/RADIATION/CHEMO FEEDING TUBE PRESENT FOR 1.5 YEARS DURING THIS TIME Surgical History Hx of inguinal hernia surgery History of cardiac cath W/ X1 STENT- 2020- FOLLOWS W/ [place] [facility] S/P cystoscopy with ureteral stent placement S/P REMOVAL STENT ALSO History of prostate biopsy (01/01/22) History of colonoscopy History of esophagogastroduodenoscopy (EGD) History of vascular access device PORT PLACEMENT-UPPER LEFT IN PLACE-UNSURE OF TYPE OF PORT History of lung surgery STENT TO [id number]? S/P laparoscopic cholecystectomy Family History Mother Coronary heart disease Father , age 90 COPD (chronic obstructive pulmonary disease) Diabetes Aunt Cancer Uncle Diabetes Brother Hypertension Daughter No problems noted. Brother No problems noted. Other No family history of bleeding disorder Denies family history of Ovarian cancer Prostate cancer Breast cancer Colorectal cancer Social History Smoking Status: Former smoker Tobacco Type: Cigars Age Started Using Tobacco: 14; Age Quit Using Tobacco: 53; packs per day: 1; Cigarettes Per Day: occasionally; Second Hand Exposure: Yes; Do You Dip or Chew Tobacco: No; Hx Alcohol Use: No Hx Substance Use: No Preferred Language: Urdu Communication Ability: Effective Visual Impairment: No Limitations Hearing Ability: Normal Application Support Manager Required: No Beliefs That Will Affect Care: None marital status: Single marital status details: but has 1 daughter Current Living Situation: Alone Current Living Situation Comment: with help from brother current occupational status: employed and disabled 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 How many Children do You have: 1 Feels Safe at Home: Yes Diet: regular caffeine: Yes (iced tea) during the past year weight has: remained stable Dental Care, Regularly: No Assistive Devices: None Allergies Allergies Allergy/AdvReac Type Severity Reaction Status Date / Time No Known Allergies Allergy Verified 01/20/24 22:55 Home Meds Home Medications Medication Instructions Recorded Confirmed aspirin 81 mg tablet,delayed 81 mg PO QAM 01/08/23 01/20/24 release (Adult Low Dose Aspirin) metoprolol succinate 50 mg 50 mg PO DAILY 01/20/24 01/20/24 tablet,extended release 24 hr morphine 20 mg/5 mL (4 mg/mL) oral 2.5 mg PO .Q 3 HOURS PRN dyspnea 01/20/24 01/20/24 solution or air hunger tamsulosin 0.4 mg capsule 0.4 mg PO QAM 01/20/24 01/20/24 Previous Rx's Medication Instructions Recorded lancets 30 gauge (Kweliai2O Water [facility] #100 ea 07/11/21 Lancets) azelastine 137 mcg (0.1 %) nasal 1 spray intranasal BID PRN 08/21/22 spray aerosol ALLERGIC RHINITIS #90 mL Portable Oxygen [id number] #1 ea 10/13/22 albuterol sulfate 90 mcg/actuation 2 puff inhalation Q6H PRN 04/27/23 aerosol inhaler Shortness Of Breath Or Wheezing #18 grams azithromycin 250 mg tablet 250 mg PO MOWEFR #36 tabs 04/27/23 umeclidinium 62.5 mcg/actuation 1 inh inhalation QPM #3 Inhalers 04/27/23 blister powder for inhalation (Incruse Ellipta) [facility] Verio test strips) metformin 500 mg tablet 1,000 mg (2 x 500 mg) PO BID 90 07/06/23 days #360 tabs guaifenesin 600 mg tablet, 1,200 mg (2 x 600 mg) PO Q12 #30 07/30/23 extended release 12 hr (Mucinex) tabs albuterol sulfate 2.5 mg/3 mL 2.5 mg (3 mL) inhalation Q4H PRN 08/24/23 (0.083 %) solution for nebulization COPD #360 mL ipratropium bromide 0.02 % 2.5 ml inhalation Q4H PRN COPD 08/24/23 solution for inhalation #300 mL Breo Ellipta 200 mcg-25 mcg/dose 1 inh inhalation QAM #60 ea 10/01/23 powder for inhalation (fluticasone furoate-vilanterol) duloxetine 60 mg capsule,delayed 60 mg PO QAM 30 days #30 caps 10/22/23 release (Cymbalta) gabapentin 600 mg tablet 600 mg PO TID 30 days #90 tabs 10/22/23 hydroxyzine HCl 25 mg tablet 25 mg PO HS PRN insomnia #90 tabs 11/05/23 atorvastatin 80 mg tablet 80 mg PO QAM #90 tabs 12/23/23 roflumilast 500 mcg tablet 500 mcg PO QAM #90 tabs 12/23/23 (Daliresp) omeprazole 40 mg capsule,delayed 40 mg PO QAM #90 caps 12/24/23 release doxycycline hyclate 100 mg capsule 100 mg PO BID 7 days #14 caps 01/20/24 lorazepam 0.5 mg tablet 0.5 mg PO Q6H PRN anxiety or 01/20/24 insomnia #20 tabs nitroglycerin 0.4 mg sublingual 0.4 mg sublingual PRN PRN chest 01/20/24 tablet (Nitrostat) pain #25 tabs oxycodone 5 mg tablet 5 mg PO Q4H PRN dyspnea due to 01/20/24 severe COPD 3 weeks #60 tabs prednisone 10 mg tablet See Rx Instructions PO .COMPLEX 01/20/24 copd exacerbation 1 week #20 tabs Results & Data (ED) Vital Signs Vital Signs - 24 hr 01/20/24 18:30 01/20/24 18:41 01/20/24 18:55 Temperature 37.1 C Temperature Source Oral Pulse Rate 153 H 145 H Pulse Rate [Apical] 141 H Respiratory Rate 24 24 Respiratory Effort / Characteristics Non-Labored Spontaneous Respiratory Depth Normal Respiratory Pattern Regular Blood Pressure 51/40 L Blood Pressure [Left Arm] 77/46 L Blood Pressure Mean 43 Blood Pressure Mean [Left Arm] 56 Blood Pressure Position Semi-fowlers Blood Pressure Position [Left Arm] Semi-fowlers Pulse Oximetry 90 90 Oxygen Delivery Method Oxymask Oxymask Oxygen Flow Rate 11 13 Sepsis Recent Fever Within 48 Hours No Sepsis New/Unexplained Change in Mental Status No Sepsis Action Taken by Nursing Physician Notified Oxygen Flow Rate - Titration Pulse Oximetry Post Tiitration 01/20/24 19:04 01/20/24 19:13 01/20/24 20:03 Temperature Temperature Source Pulse Rate Pulse Rate [Apical] 128 H Respiratory Rate Respiratory Effort / Characteristics Respiratory Depth Respiratory Pattern Blood Pressure Blood Pressure [Left Arm] 93/65 L 94/62 L Blood Pressure Mean Blood Pressure Mean [Left Arm] 74 72 Blood Pressure Position Blood Pressure Position [Left Arm] Semi-fowlers Semi-fowlers Pulse Oximetry 95 95 100 Oxygen Delivery Method Oxymask Oxymask Oxymask Oxygen Flow Rate 13 13 13 Sepsis Recent Fever Within 48 Hours Sepsis New/Unexplained Change in Mental Status Sepsis Action Taken by Nursing Oxygen Flow Rate - Titration Pulse Oximetry Post Tiitration 01/20/24 20:11 01/20/24 20:30 01/20/24 21:00 Temperature Temperature Source Pulse Rate Pulse Rate [Apical] 126 H 125 H 123 H Respiratory Rate 27 H 23 Respiratory Effort / Characteristics Respiratory Depth Normal Respiratory Pattern Blood Pressure Blood Pressure [Left Arm] 106/64 103/63 103/75 Blood Pressure Mean Blood Pressure Mean [Left Arm] 78 76 84 Blood Pressure Position Blood Pressure Position [Left Arm] Semi-fowlers Semi-fowlers Pulse Oximetry 100 96 97 Oxygen Delivery Method Oxymask Oxymask Oxymask Oxygen Flow Rate 13 13 13 Sepsis Recent Fever Within 48 Hours Sepsis New/Unexplained Change in Mental Status Sepsis Action Taken by Nursing Oxygen Flow Rate - Titration Pulse Oximetry Post Tiitration 01/20/24 21:25 01/20/24 21:43 01/20/24 22:19 Temperature Temperature Source Pulse Rate Pulse Rate [Apical] 119 H Respiratory Rate 23 Respiratory Effort / Characteristics Respiratory Depth Normal Respiratory Pattern Blood Pressure Blood Pressure [Left Arm] 108/70 Blood Pressure Mean Blood Pressure Mean [Left Arm] 82 Blood Pressure Position Blood Pressure Position [Left Arm] Semi-fowlers Pulse Oximetry 99 97 95 Oxygen Delivery Method Oxymask Oxymask Oxymask Oxygen Flow Rate 13 9 5 Sepsis Recent Fever Within 48 Hours Sepsis New/Unexplained Change in Mental Status Sepsis Action Taken by Nursing Oxygen Flow Rate - Titration 9 5 Pulse Oximetry Post Tiitration 99 94 01/20/24 22:28 Temperature Temperature Source Pulse Rate 120 H Pulse Rate [Apical] Respiratory Rate Respiratory Effort / Characteristics Respiratory Depth Respiratory Pattern Blood Pressure Blood Pressure [Left Arm] Blood Pressure Mean Blood Pressure Mean [Left Arm] Blood Pressure Position Blood Pressure Position [Left Arm] Pulse Oximetry Oxygen Delivery Method Oxygen Flow Rate Sepsis Recent Fever Within 48 Hours Sepsis New/Unexplained Change in Mental Status Sepsis Action Taken by Nursing Oxygen Flow Rate - Titration Pulse Oximetry Post Tiitration Laboratory Data 01/20/24 18:42 01/20/24 18:42 Lab Results 01/20/24 01/20/24 01/20/24 Range/Units 18:42 18:48 19:08 WBC 12.96 H (4.8-10.8) K/ul RBC 5.23 (4.70-6.10) M/uL Hgb 14.3 (14.0-18.0) g/dl POC Hgb 15.6 (14.0-18.0) g/dl Hct 46.9 (42.0-52.0) % POC Hct 46 (42-52) % MCV 89.7 (80.0-100.0) fL MCH 27.3 (25.0-34.0) pg MCHC 30.5 L (32.0-36.0) g/dL RDW Std Deviation 53.3 H (36.4-46.3) fL RDW Coeff of Estela 16.7 H (11.5-14.5) % Plt Count 271 (130-400) K/uL MPV 9.6 (9.4-12.4) fL Immature Gran % (Auto) 0.6 % Neut % (Auto) 86.1 % Lymph % (Auto) 7.3 % Bull[place] % (Auto) 5.4 % Eos % (Auto) 0.1 % Baso % (Auto) 0.5 % Neut # (Auto) 11.17 H (1.40-6.50) K/uL Lymph # (Auto) 0.94 L (1.20-3.40) K/uL [place] # (Auto) 0.70 H (0.11-0.59) K/uL Eos # (Auto) 0.01 (0.00-0.50) K/uL Baso # (Auto) 0.06 (0.00-0.20) K/uL Immature Gran # (Auto) 0.08 (0.01-0.20) K/uL Absolute Nucleated RBC 0.02 (0.00-0.12) K/uL Nucleated RBC % (auto) 0.2 % Polychromasia 1+ Echinocytes 3+ Acanthocytes (Spur) 1+ VBG pH 7.30 L (7.36-7.41) VBG pCO2 54 H (38-50) mmHg VBG pO2 36 mmHg VBG HCO3 27 mmol/L VBG O2 Saturation < 60.0 % VBG Base Excess -0.7 mEq/L POC Sodium 137 (135-144) mmol/L Sodium 137 (136-145) mmol/L POC Potassium 4.3 (3.3-5.0) mmol/L Potassium 4.4 (3.5-5.1) mmol/L POC Chloride 100 L (101-112) mmol/L Chloride 101 (98-107) mmol/L Carbon Dioxide 24 (21-32) mmol/L POC Total CO2 27 (24-31) mmol/L Anion Gap 12 H (3-11) POC Anion Gap 16.0 (16-25) mmol/L POC BUN 12 (7-18) mg/dl BUN 13 (6-23) mg/dl Creatinine 0.80 (0.6-1.4) mg/dl POC Creatinine 0.8 (0.6-1.3) mg/dl Est Cr Clr Drug Dosing 93.8 ml/min Est GFR ( Amer) 110.2 ml/min Est GFR (Non-Af Amer) 95.1 ml/min BUN/Creatinine Ratio 16.3 (10-20) Glucose 177 H (70-99(Fasting)) mg/dl POC Glucose (other) 168 H (70-99) mg/dl Lactate (0.4-2.0) mmol/L Calcium 9.4 (8.6-10.3) mg/dl POC Ioniz Calcium [place] 1.17 (1.12-1.32) mmol/l Total Bilirubin 0.8 (0.2-1.0) mg/dl AST 12 L (13-39) U/L ALT 12 (7-52) U/L Alkaline Phosphatase 67 (34-104) U/L Troponin I High Sens 4.8 (0-20) pg/ml Total Protein 6.0 (6.0-8.3) gm/dl Albumin 3.7 (3.4-5.0) gm/dl Globulin 2.3 L (2.5-4.0) gm/dl Albumin/Globulin Ratio 1.6 (0.9-2) Procalcitonin 0.24 (0-0.5) ng/ml Urine Color Urine Appearance (Clear) Urine pH (4.5-7.5) Ur Specific [place] (1.000-1.030) Urine Protein (Negative) Urine Glucose (UA) (Negative) Urine Ketones (Negative) Urine Blood (Negative) Urine Nitrite (Negative) Urine Bilirubin (Negative) Urine Urobilinogen (Negative) Ur Leukocyte Esterase (Negative) Urine WBC (Auto) (0-5) /hpf Urine RBC (Auto) (0-2) /hpf U Hyaline Cast (Auto) (0-2) /lpf U Epithel Cells (Auto) (0-2) /hpf Urine Bacteria (Auto) (None Seen) Calcium Oxalate Crystal (None Prsent) Adenovirus (PCR) (NotDetected) B. pertussis DNA (PCR) (NotDetected) B.parapertussis DNA PCR (NotDetected) C. pneumoniae DNA (PCR) (NotDetected) Coronavirus OC43 (PCR) (NotDetected) Coronavirus HKU1 (PCR) (NotDetected) Coronavirus 229E (PCR) (NotDetected) SARS-CoV-2 (PCR) (NotDetected) Coronavirus NL63 (PCR) (NotDetected) Human Metapneumovir PCR (NotDetected) Influenza Type A (PCR) (NotDetected) Influenza Type B (PCR) (NotDetected) M. pneumoniae (PCR) (NotDetected) Parainfluenza 1 (PCR) (NotDetected) Parainfluenza 2 (PCR) (NotDetected) Parainfluenza 3 (PCR) (NotDetected) Parainfluenza 4 (PCR) (NotDetected) RSV (PCR) (NotDetected) Entero/Rhino (PCR) (NotDetected) 01/20/24 01/20/24 01/20/24 Range/Units 19:58 21:15 Unknown WBC (4.8-10.8) K/ul RBC (4.70-6.10) M/uL Hgb (14.0-18.0) g/dl POC Hgb (14.0-18.0) g/dl Hct (42.0-52.0) % POC Hct (42-52) % MCV (80.0-100.0) fL MCH (25.0-34.0) pg MCHC (32.0-36.0) g/dL RDW Std Deviation (36.4-46.3) fL RDW Coeff of Estela (11.5-14.5) % Plt Count (130-400) K/uL MPV (9.4-12.4) fL Immature Gran % (Auto) % Neut % (Auto) % Lymph % (Auto) % [place] % (Auto) % Eos % (Auto) % Baso % (Auto) % Neut # (Auto) (1.40-6.50) K/uL Lymph # (Auto) (1.20-3.40) K/uL [place] # (Auto) (0.11-0.59) K/uL Eos # (Auto) (0.00-0.50) K/uL Baso # (Auto) (0.00-0.20) K/uL Immature Gran # (Auto) (0.01-0.20) K/uL Absolute Nucleated RBC (0.00-0.12) K/uL Nucleated RBC % (auto) % Polychromasia Echinocytes Acanthocytes (Spur) VBG pH (7.36-7.41) VBG pCO2 (38-50) mmHg VBG pO2 mmHg VBG HCO3 mmol/L VBG O2 Saturation % VBG Base Excess mEq/L POC Sodium (135-144) mmol/L Sodium (136-145) mmol/L POC Potassium (3.3-5.0) mmol/L Potassium (3.5-5.1) mmol/L POC Chloride (101-112) mmol/L Chloride (98-107) mmol/L Carbon Dioxide (21-32) mmol/L POC Total CO2 (24-31) mmol/L Anion Gap (3-11) POC Anion Gap (16-25) mmol/L POC BUN (7-18) mg/dl BUN (6-23) mg/dl Creatinine (0.6-1.4) mg/dl POC Creatinine (0.6-1.3) mg/dl Est Cr Clr Drug Dosing ml/min Est GFR ( Amer) ml/min Est GFR (Non-Af Amer) ml/min BUN/Creatinine Ratio (10-20) Glucose (70-99(Fasting)) mg/dl POC Glucose (other) (70-99) mg/dl Lactate 4.8 H* (0.4-2.0) mmol/L Calcium (8.6-10.3) mg/dl POC Ioniz Calcium [place] (1.12-1.32) mmol/l Total Bilirubin (0.2-1.0) mg/dl AST (13-39) U/L ALT (7-52) U/L Alkaline Phosphatase (34-104) U/L Troponin I High Sens (0-20) pg/ml Total Protein (6.0-8.3) gm/dl Albumin (3.4-5.0) gm/dl Globulin (2.5-4.0) gm/dl Albumin/Globulin Ratio (0.9-2) Procalcitonin (0-0.5) ng/ml Urine Color Yellow Urine Appearance Cloudy A (Clear) Urine pH 5.5 (4.5-7.5) Ur Specific [place] 1.035 H (1.000-1.030) Urine Protein Trace H (Negative) Urine Glucose (UA) Negative (Negative) Urine Ketones Trace H (Negative) Urine Blood 3+ H (Negative) Urine Nitrite Negative (Negative) Urine Bilirubin Negative (Negative) Urine Urobilinogen Negative (Negative) Ur Leukocyte Esterase Negative (Negative) Urine WBC (Auto) 0-5 (0-5) /hpf Urine RBC (Auto) >20 H (0-2) /hpf U Hyaline Cast (Auto) 6-10 H (0-2) /lpf U Epithel Cells (Auto) 0-2 (0-2) /hpf Urine Bacteria (Auto) None Seen (None Seen) Calcium Oxalate Crystal Present A (None Prsent) Adenovirus (PCR) Not Detected (NotDetected) B. pertussis DNA (PCR) Not Detected (NotDetected) B.parapertussis DNA PCR Not Detected (NotDetected) C. pneumoniae DNA (PCR) Not Detected (NotDetected) Coronavirus OC43 (PCR) Not Detected (NotDetected) Coronavirus HKU1 (PCR) Not Detected (NotDetected) Coronavirus 229E (PCR) Not Detected (NotDetected) SARS-CoV-2 (PCR) Not Detected (NotDetected) Coronavirus NL63 (PCR) Not Detected (NotDetected) Human Metapneumovir PCR Not Detected (NotDetected) Influenza Type A (PCR) Not Detected (NotDetected) Influenza Type B (PCR) Not Detected (NotDetected) M. pneumoniae (PCR) Not Detected (NotDetected) Parainfluenza 1 (PCR) Not Detected (NotDetected) Parainfluenza 2 (PCR) Not Detected (NotDetected) Parainfluenza 3 (PCR) Not Detected (NotDetected) Parainfluenza 4 (PCR) Not Detected (NotDetected) RSV (PCR) Not Detected (NotDetected) Entero/Rhino (PCR) Not Detected (NotDetected) Administered Medications Discontinued Medications Albuterol (Albut/Ipratrop 3mg/0.5mg Neb 3 Ml Vial) 12 ml INH ONE STA Stop: 01/20/24 18:41 Last Admin: 01/20/24 18:55 Dose: 12 ml Documented By: UBALDO Sodium Chloride (Nss) 1,000 mls @ 999 mls/hr IV .Q1H1M IMAN Stop: 01/20/24 20:45 Last Infusion: 01/20/24 22:19 Dose: Infused Documented By: Admin: 01/20/24 21:08 Dose: 999 mls/hr Documented By: Infusion: 01/20/24 20:06 Dose: Infused Documented By: Admin: 01/20/24 18:53 Dose: 999 mls/hr Documented By: UBALDO Sodium Chloride (Nss) 1,000 mls @ 999 mls/hr IV .Q1H1M ONE Stop: 01/20/24 20:37 Last Infusion: 01/20/24 21:01 Dose: Infused Documented By: Admin: 01/20/24 19:49 Dose: 999 mls/hr Documented By: CLAUDIA Piperacillin Sod/Tazobactam Sod (Zosyn) 4.5 gm in 100 mls @ 200 mls/hr IV NOW ONE Stop: 01/20/24 21:09 Last Infusion: 01/20/24 21:43 Dose: Infused Documented By: Admin: 01/20/24 21:08 Dose: 200 mls/hr Documented By: UBALDO Ioversol (Optiray 320 125ml) 118 ml IV ONCE ONE Stop: 01/20/24 20:48 Last Admin: 01/20/24 20:50 Dose: 118 ml Documented By: MARGY Methylprednisolone (Methylprednisolone 125 Mg/2 Ml Vial) 125 mg IV NOW STA Stop: 01/20/24 18:41 Last Admin: 01/20/24 18:49 Dose: 125 mg Documented By: UBALDO Imaging Data Radiologist's Impression: Chest CTA 01/20/24 18:43 Exam(s): CTA CHEST IV Amt: 118 cc opti 320 EXAM: CT Angiography Chest With Intravenous Contrast CLINICAL HISTORY: Reason for exam: PE. TECHNIQUE: Axial computed tomographic angiography images of the chest with intravenous contrast. CTDI is 14.25 mGy and DLP is 633.97 mGy-cm. Automated exposure control was utilized for the study. A dose lowering technique was utilized adhering to the principles of ALARA. MIP reconstructed images were created and reviewed. COMPARISON: 07/26/2023 FINDINGS: Pulmonary arteries: Unremarkable. No pulmonary embolism. Aorta: No acute findings. No thoracic aortic aneurysm. Lungs: New left lower lobe and lingular infiltrates. Diffuse changes COPD. No mass. Pleural space: Small left pleural effusion. No pneumothorax. Heart: Unremarkable. No cardiomegaly. No significant pericardial effusion. No evidence of RV dysfunction. Bones/joints: No acute fracture. No dislocation. Soft tissues: Unremarkable. Lymph nodes: Unremarkable. No enlarged lymph nodes. IMPRESSION: 1. Left lingular and lower lobe pneumonia 2. Small left pleural effusion likely reactive in nature. No pulmonary embolus Electronically signed by: Victorino Landrum MD 01/20/24 21:32 PM Discharge Plan Visit Data Chief Complaint: Shortness of Breath/Dyspnea Stated Complaint: SOB ED Provider: John Cormier Discharge Problem: LLL pneumonia, Acute hypoxemic respiratory failure, COPD with acute exacerbation Forms Stand Alone Forms: [facility] [employer] Prescriptions Prescriptions: No Action (DME) lancets [OneTouch Delica Lancets] 30 gauge misc See Rx Instructions .Route Qty: 100 3RF Rx Instructions: use once daily azelastine 137 mcg (0.1 %) aerosol,spray 1 spray intranasal BID PRN (Reason: ALLERGIC RHINITIS) Qty: 90 5RF Patient Comments: USUALLY USES EVERY DAY Rx Instructions: USE 1 SPRAY INTRANASALLY TWICE A DAY NEEDED FOR ALLERGIC RHINITIS. ADMINISTER INTO EACH NOSTRIL. (DME) KweliaTouch Verio test strips Strip See Rx Instructions .Route Qty: 100 7RF Rx Instructions: test once daily. metformin 500 mg tablet 1,000 mg PO BID 90 Days Qty: 360 3RF Rx Instructions: with meals albuterol sulfate 2.5 mg /3 mL (0.083 %) solution for nebulization 2.5 mg inhalation Q4H PRN (Reason: COPD) Qty: 360 11RF ipratropium bromide 0.02 % solution 2.5 ml inhalation Q4H PRN (Reason: COPD) Qty: 300 11RF fluticasone furoate-vilanterol [Breo Ellipta] 200-25 mcg/dose blister with device 1 inh inhalation QAM Qty: 60 7RF duloxetine [Cymbalta] 60 mg capsule,delayed release(DR/EC) 60 mg PO QAM 30 Days Qty: 30 5RF gabapentin 600 mg tablet 600 mg PO TID 30 Days Qty: 90 5RF hydroxyzine HCl 25 mg tablet 25 mg PO HS PRN (Reason: insomnia) Qty: 90 0RF atorvastatin 80 mg tablet 80 mg PO QAM Qty: 90 3RF Rx Instructions: TAKE 1 TABLET BY MOUTH EVERY DAY roflumilast [Daliresp] 500 mcg tablet 500 mcg PO QAM Qty: 90 3RF omeprazole 40 mg capsule,delayed release(DR/EC) 40 mg PO QAM Qty: 90 3RF lorazepam 0.5 mg tablet 0.5 mg PO Q6H PRN (Reason: anxiety or insomnia) Qty: 20 0RF nitroglycerin [Nitrostat] 0.4 mg tablet, sublingual 0.4 mg sublingual PRN PRN (Reason: chest pain) Qty: 25 0RF (DME) Portable Oxygen E0431 Misc See Rx Instructions .MEDSUPPLY Qty: 1 0RF Rx Instructions: Oxygen 2 liters continuous via nasal cannula on exertion with portable concentrator. NOELLE 99 albuterol sulfate 90 mcg/actuation HFA aerosol inhaler 2 puff inhalation Q6H PRN (Reason: Shortness Of Breath Or Wheezing) Qty: 18 3RF Incruse Ellipta 62.5 mcg/actuation blister with device 1 inh INH QPM Qty: 3 1RF Rx Instructions: 10 PM azithromycin 250 mg tablet 250 mg PO MOWEFR Qty: 36 3RF oxycodone 5 mg tablet 5 mg PO Q4H MDD 4 tabs PRN (Reason: dyspnea due to severe COPD) 21 Days Qty: 60 0RF prednisone 10 mg tablet See Rx Instructions PO .COMPLEX 7 Days Qty: 20 0RF Rx Instructions: orally 3 tabs daily for 3 days then 2 tabs daily for 3 days then resume 10mg per day; doxycycline hyclate 100 mg capsule 100 mg PO BID 7 Days Qty: 14 0RF aspirin [Adult Low Dose Aspirin] 81 mg tablet,delayed release (DR/EC) 81 mg PO QAM guaifenesin [Mucinex] 600 mg Tablet Extended Release 12hr 1,200 mg PO Q12 Qty: 30 0RF morphine 20 mg/5 mL (4 mg/mL) solution 2.5 mg PO .Q 3 HOURS PRN (Reason: dyspnea or air hunger) metoprolol succinate 50 mg tablet extended release 24 hr 50 mg PO DAILY tamsulosin 0.4 mg capsule 0.4 mg PO QAM Referrals Referrals: Cody Ramirez DO [Primary Care Provider] - Discharge Problem: LLL pneumonia Qualifiers: Pneumonia type: due to unspecified organism Qualified Code(s): J18.9 - Pneumonia, unspecified organism
[2024-01-20] MEDS: methylPREDNISolone 125 MG/2 ML VIAL IV STA (18:49)
[2024-01-20] MEDS: SODIUM CHLORIDE 0.9% 1,000 ML IV SCH (18:53)
[2024-01-20] MEDS: ALBUT/IPRATROP 3MG/0.5MG NEB 3 ML VIAL INH STA (18:55)
[2024-01-20 19:00] LABS: iSTAT Creatinine 0.8 mg/dl (0.6-1.3); iSTAT Hemoglobin 15.6 g/dl (14.0-18.0); iSTAT Ionized Calcium 1.17 mmol/l (1.12-1.32); iSTAT Potassium 4.3 mmol/L (3.3-5.0)
[2024-01-20 19:07] LABS: Hematocrit (blood only) 46.9 % (42.0-52.0); Hemoglobin 14.3 g/dl (14.0-18.0); Mean Corpuscular Hemoglobin 27.3 pg (25.0-34.0); Mean Corpuscular Hgb Conc 30.5 g/dL (32.0-36.0); Mean Corpuscular Volume 89.7 fL (80.0-100.0); Mean Platelet Volume 9.6 fL (9.4-12.4); Nucleated RBC # (auto) 0.02 K/uL (0.00-0.12); Nucleated RBC % (auto) 0.2 %; Platelet Count 271 K/uL (130-400); RDW Coefficient of Variation 16.7 % (11.5-14.5); RDW Standard Deviation 53.3 fL (36.4-46.3); Red Blood Count 5.23 M/uL (4.70-6.10); White Blood Count 12.96 K/ul (4.8-10.8)
[2024-01-20 19:19] LABS: Albumin Globulin Ratio 1.6 (0.9-2); Albumin Level 3.7 gm/dl (3.4-5.0); BUN Creatinine Ratio 16.3 (10-20); Bilirubin,Total 0.8 mg/dl (0.2-1.0); Calcium 9.4 mg/dl (8.6-10.3); Creatinine Clr Calc Pharmacy 93.8 ml/min; Est GFR (African American) 110.2 ml/min; Est GFR (Non-African American) 95.1 ml/min; Globulin 2.3 gm/dl (2.5-4.0); Potassium 4.4 mmol/L (3.5-5.1)
[2024-01-20 19:25] LABS: Base Excess VBG -0.7 mEq/L; HCO3 VBG 27 mmol/L; Oxygen Saturation VBG < 60.0 %; PCO2 VBG 54 mmHg (38-50); PO2 VBG 36 mmHg
[2024-01-20 19:43] LABS: Acanthocytes 1+; Basophils # (auto) 0.06 K/uL (0.00-0.20); Basophils % (auto) 0.5 %; Echinocytes 3+; Eosinophils # (auto) 0.01 K/uL (0.00-0.50); Eosinophils % (auto) 0.1 %; Immature Granulocytes # (auto) 0.08 K/uL (0.01-0.20); Immature Granulocytes % (auto) 0.6 %; Lymphocytes # (auto) 0.94 K/uL (1.20-3.40); Lymphocytes % (auto) 7.3 %; Monocytes % (auto) 5.4 %; Neutrophils # (auto) 11.17 K/uL (1.40-6.50); Neutrophils % (auto) 86.1 %; Polychromasia 1+
[2024-01-20] MEDS: SODIUM CHLORIDE 0.9% 1,000 ML IV ONE (19:49)
[2024-01-20 20:25] LABS: Adenovirus PCR Not Detected (NotDetected); Bordetella parapertussis PCR Not Detected (NotDetected); Bordetella pertussis PCR Not Detected (NotDetected); Chlamydia pneumoniae PCR Not Detected (NotDetected); Coronavirus 229E PCR Not Detected (NotDetected); Coronavirus CoV-2 (COVID19)PCR Not Detected (NotDetected); Coronavirus HKU1 PCR Not Detected (NotDetected); Coronavirus NL63 PCR Not Detected (NotDetected); Coronavirus OC43PCR Not Detected (NotDetected); Human Metapneumovirus PCR Not Detected (NotDetected); Influenza A PCR Not Detected (NotDetected); Influenza B PCR Not Detected (NotDetected); Mycoplasma pneumoniae PCR Not Detected (NotDetected); Parainfluenza Virus 1 PCR Not Detected (NotDetected); Parainfluenza Virus 2 PCR Not Detected (NotDetected); Parainfluenza Virus 3 PCR Not Detected (NotDetected); Parainfluenza Virus 4 PCR Not Detected (NotDetected); Respiratory Syncytial VirusPCR Not Detected (NotDetected); Rhinovirus/Enterovirus PCR Not Detected (NotDetected)
[2024-01-20 20:35] LABS: Troponin I High Sensitivity 4.8 pg/ml (0-20)
[2024-01-20] MEDS: OPTIRAY 320 125ml IV ONE (20:50)
[2024-01-20] MEDS: PIPERACILLIN/TAZOBACTAM 4.5 GM/100 ML BAG IV ONE (21:08)
--- NOTE | 2024-01-20 21:33 | CT Scan Report ---
Exam(s): CTA CHEST IV Amt: 118 cc opti 320 EXAM: CT Angiography Chest With Intravenous Contrast CLINICAL HISTORY: Reason for exam: PE. TECHNIQUE: Axial computed tomographic angiography images of the chest with intravenous contrast. CTDI is 14.25 mGy and DLP is 633.97 mGy-cm. Automated exposure control was utilized for the study. A dose lowering technique was utilized adhering to the principles of ALARA. MIP reconstructed images were created and reviewed. COMPARISON: 07/26/2023 FINDINGS: Pulmonary arteries: Unremarkable. No pulmonary embolism. Aorta: No acute findings. No thoracic aortic aneurysm. Lungs: New left lower lobe and lingular infiltrates. Diffuse changes COPD. No mass. Pleural space: Small left pleural effusion. No pneumothorax. Heart: Unremarkable. No cardiomegaly. No significant pericardial effusion. No evidence of RV dysfunction. Bones/joints: No acute fracture. No dislocation. Soft tissues: Unremarkable. Lymph nodes: Unremarkable. No enlarged lymph nodes. IMPRESSION: 1. Left lingular and lower lobe pneumonia 2. Small left pleural effusion likely reactive in nature. No pulmonary embolus Electronically signed by: Victorino Landrum MD 01/20/24 21:32 PM
--- NOTE | 2024-01-20 22:15 | History & Physical Report ---
Date of Service January 20, 2024 Assessment & Plan (1) LLL pneumonia: (2) Acute hypoxemic respiratory failure: (3) COPD with acute exacerbation: (4) Pulmonary cachexia due to COPD: (5) End stage COPD: (6) History of pulmonary embolus (PE): (7) Acute and chronic respiratory failure: (8) GERD (gastroesophageal reflux disease): (9) Presence of drug coated stent in left circumflex coronary artery: (10) Dyslipidemia, goal LDL below 70: (11) Type 2 diabetes mellitus: (12) CAD (coronary artery disease): Plan Left lower lobe and left lingular pneumonia/COPD exacerbation/acute on chronic respiratory failure with hypoxia/end-stage COPD with pulmonary cachexia- Treatment in the emergency department included the following: DuoNeb, Solu- Medrol 125 mg IV, Zosyn 4.5 g IV, and 2 L normal saline bolus Solu-Medrol 40 mg IV every 8 hours Duonebs every 4 hours while awake and every 2 hours when necessary. Guaifenesin extended release 1200 mg p.o. twice daily Zosyn 4.5 g IV every 8 hours Azithromycin 500 mg IV daily Continue usual inhalers: Breo elliptica, Incruse Ellipta Continue Daliresp MRSA swab Nasal cannula oxygen with titration to maintain pulse ox 92-94% CAD/hypertension/history of coronary left circumflex artery stent/hyperlipidemia- Continue aspirin 81 mg daily, atorvastatin 80 mg daily, metoprolol succinate 50 mg daily Diabetes mellitus- Hold metformin Placed on Accu-Cheks with NovoLog SSI History of Present Illness Chief Complaint: The patient presents to the emergency department with complaint of chest congestion, shortness of breath, dyspnea on exertion that began about 1 week ago, and worsened over the past few days. Primary Care Provider: Cody Ramirez DO The patient is a 63-year-old male with a past medical history including generalized weakness, pulmonary cachexia due to COPD, dyslipidemia, history of PE, delayed gastric emptying, chronic respiratory failure, non-small cell lung cancer, GERD, dyslipidemia, history of hematuria, history of UTI, hypertension, diabetes mellitus, STEMI 01/23, depression and severe COPD. Patient presents to the emergency department with 1 week of worsening wheezing, productive cough, shortness of breath and dyspnea on exertion. Chest x-ray and CT angiography of chest were negative for PE, but did show a left lingular and left lower lobe infiltrate. From emergency department patient received a DuoNeb, Solu-Medrol 112 5 mg IV, Zosyn 4.5 g IV, and normal saline 2 L bolus. He did require 4 L of nasal cannula oxygen, to reach pulse ox of 96% Allergies Allergy/AdvReac Type Severity Reaction Status Date / Time No Known Allergies Allergy Verified 01/20/24 22:55 Home Medications Medication Instructions Recorded Confirmed Type lancets 30 gauge ([facility] ea 07/11/21 12/29/23 Rx Lancets) azelastine 137 mcg (0.1 %) nasal 1 spray intranasal BID PRN 08/21/22 01/20/24 Rx spray aerosol ALLERGIC RHINITIS #90 mL Portable Oxygen E0431 #1 ea 10/13/22 12/29/23 Rx aspirin 81 mg tablet,delayed 81 mg PO QAM 01/08/23 01/20/24 History release (Adult Low Dose Aspirin) albuterol sulfate 90 mcg/actuation 2 puff inhalation Q6H PRN 04/27/23 01/20/24 Rx aerosol inhaler Shortness Of Breath Or Wheezing #18 grams azithromycin 250 mg tablet 250 mg PO MOWEFR #36 tabs 04/27/23 01/20/24 Rx umeclidinium 62.5 mcg/actuation 1 inh inhalation QPM #3 Inhalers 04/27/23 01/20/24 Rx blister powder for inhalation (Incruse Ellipta) blood sugar diagnostic ([facility] #100 ea 07/06/23 12/29/23 Rx Verio test strips) metformin 500 mg tablet 1,000 mg (2 x 500 mg) PO BID 90 07/06/23 01/20/24 Rx days #360 tabs guaifenesin 600 mg tablet, 1,200 mg (2 x 600 mg) PO Q12 #30 07/30/23 01/20/24 Rx extended release 12 hr (Mucinex) tabs albuterol sulfate 2.5 mg/3 mL 2.5 mg (3 mL) inhalation Q4H PRN 08/24/23 01/20/24 Rx (0.083 %) solution for nebulization COPD #360 mL ipratropium bromide 0.02 % 2.5 ml inhalation Q4H PRN COPD 08/24/23 01/20/24 Rx solution for inhalation #300 mL Breo Ellipta 200 mcg-25 mcg/dose 1 inh inhalation QAM #60 ea 10/01/23 01/20/24 Rx powder for inhalation (fluticasone furoate-vilanterol) duloxetine 60 mg capsule,delayed 60 mg PO QAM 30 days #30 caps 10/22/23 01/20/24 Rx release (Cymbalta) gabapentin 600 mg tablet 600 mg PO TID 30 days #90 tabs 10/22/23 01/20/24 Rx hydroxyzine HCl 25 mg tablet 25 mg PO HS PRN insomnia #90 tabs 11/05/23 01/20/24 Rx atorvastatin 80 mg tablet 80 mg PO QAM #90 tabs 12/23/23 01/20/24 Rx roflumilast 500 mcg tablet 500 mcg PO QAM #90 tabs 12/23/23 01/20/24 Rx (Daliresp) omeprazole 40 mg capsule,delayed 40 mg PO QAM #90 caps 12/24/23 01/20/24 Rx release doxycycline hyclate 100 mg capsule 100 mg PO BID 7 days #14 caps 01/20/24 01/20/24 Rx lorazepam 0.5 mg tablet 0.5 mg PO Q6H PRN anxiety or 01/20/24 01/20/24 Rx insomnia #20 tabs metoprolol succinate 50 mg 50 mg PO DAILY 01/20/24 01/20/24 History tablet,extended release 24 hr morphine 20 mg/5 mL (4 mg/mL) oral 2.5 mg PO .Q 3 HOURS PRN dyspnea 01/20/24 01/20/24 History solution or air hunger nitroglycerin 0.4 mg sublingual 0.4 mg sublingual PRN PRN chest 01/20/24 01/20/24 Rx tablet (Nitrostat) pain #25 tabs oxycodone 5 mg tablet 5 mg PO Q4H PRN dyspnea due to 01/20/24 01/20/24 Rx severe COPD 3 weeks #60 tabs prednisone 10 mg tablet See Rx Instructions PO .COMPLEX 01/20/24 01/20/24 Rx copd exacerbation 1 week #20 tabs tamsulosin 0.4 mg capsule 0.4 mg PO QAM 01/20/24 01/20/24 History Past Med/Surg History Medical History Sleep disorder breathing Poor sleep Weakness generalized Pulmonary cachexia due to COPD Weight loss Palliative care by specialist Dyspnea and respiratory abnormalities End stage COPD History of tachycardia 01/06/23, recently seen in the [place] ER for tachycardia. Pt stated the doctor increased his metoprolol to 75mg daily. History of home oxygen therapy "USED WHEN I FIRST HAD IT, NOW I DON'T THINK IT HELPS, SO I DON'T USE IT VERY OFTEN" Chronic obstructive pulmonary disease Emphysema lung Hyperlipidemia Prostate cancer 2021; RADIATION TREATMENT, NO SX. STEMI (ST elevation myocardial infarction) (01/2021) 2020, BROUGHT TO [place] ER-"HAVING PAIN AND DIDN'T FEEL WELL"; FOLLOWS W/ [place] [facility] BPH with elevated PSA CAD (coronary artery disease) S/p stent 2020 S/p YARA to LCx 01/15/2021 Type 2 diabetes mellitus Neuropathy Stomach ulcer HX -UNDER CONTROL GERD (gastroesophageal reflux disease) SOB (shortness of breath) on exertion Asthma Depression Anxiety Hypertension History of pulmonary embolus (PE) 2016-NO ISSUES SINCE H/O pneumothorax Severe chronic obstructive pulmonary disease Evaluated for lung transplant, pulmonary function not sufficiently low at this time History of lung cancer (2011) NON SMALL CELL LUNG CANCER - STAGE IV DX 2011-LEFT LOBE/NO SURGERY/RADIATION/CHEMO FEEDING TUBE PRESENT FOR 1.5 YEARS DURING THIS TIME Surgical History Hx of inguinal hernia surgery History of cardiac cath W/ X1 STENT- 2020- FOLLOWS W/ [place] [facility] S/P cystoscopy with ureteral stent placement S/P REMOVAL STENT ALSO History of prostate biopsy (01/01/22) History of colonoscopy History of esophagogastroduodenoscopy (EGD) History of vascular access device PORT PLACEMENT-UPPER LEFT IN PLACE-UNSURE OF TYPE OF PORT History of lung surgery STENT TO [id number]? S/P laparoscopic cholecystectomy Family History Mother Coronary heart disease Father , age 90 COPD (chronic obstructive pulmonary disease) Diabetes Aunt Cancer Uncle Diabetes Brother Hypertension Daughter No problems noted. Brother No problems noted. Other No family history of bleeding disorder Denies family history of Ovarian cancer Prostate cancer Breast cancer Colorectal cancer Social History Smoking Status: Former smoker Tobacco Type: Cigars Age Started Using Tobacco: 14; Age Quit Using Tobacco: 53; packs per day: 1; Cigarettes Per Day: occasionally; Second Hand Exposure: Yes; Do You Dip or Chew Tobacco: No; Hx Alcohol Use: No Hx Substance Use: No Preferred Language: Mozambican Communication Ability: Effective Visual Impairment: No Limitations Hearing Ability: Normal Transplanter Required: No Beliefs That Will Affect Care: None marital status: Single marital status details: but has 1 daughter Current Living Situation: Alone Current Living Situation Comment: with help from brother current occupational status: employed and disabled 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 How many Children do You have: 1 Feels Safe at Home: Yes Diet: regular caffeine: Yes (iced tea) during the past year weight has: remained stable Dental Care, Regularly: No Assistive Devices: None Review of Systems Review of Systems: The patient denies chest pain, palpitations, lower extremity swelling, sore throat, fevers, chills, sweats, nausea, vomiting, diarrhea , constipation, abdominal pain, pelvic pain, blood in stool, dysuria, urinary frequency or urgency, lightheadedness, dizziness, headache, memory loss, loss of consciousness, rash, imbalance, focal or generalized weakness, numbness or tingling in arms or legs, generalized arthralgias or myalgias, back or neck pain, or night sweats. The review of systems is otherwise negative other than for that already noted above, and at least 10 systems have been reviewed. Physical Exam Physical Exam: The patient is awake, alert and oriented 3, well developed and well nourished, normocephalic and atraumatic, lying in bed and in no acute distress. HEENT--PERRL, EOMI, mucous membranes and oropharynx normal Neck--supple. No JVD. No bruits. Thyroid normal, trachea midline, no adenopathy. Heart--normal S1 and S2. No murmurs, rubs or gallops. Lungs--coarse breath sounds bilaterally. Decreased breath sounds left base. No respiratory distress, no accessory muscle use. Abdomen--normal bowel sounds and soft. Nontender. Nondistended, no hernias or masses, no organomegaly. Extremities-- No edema. Dermatologic--normal skin turgor, normal color, no abnormal lymph nodes, no rash. Neurologic--cranial nerves II through XII grossly intact. Rheumatologic--normal range of motion. Psychiatric--normal affect. Results & Data Results & Data Vital Signs (Past 12 Hours) Vital Signs Temp Pulse Pulse Resp BP BP Pulse Ox 01/20/24 21:43 97 01/20/24 21:25 99 01/20/24 21:00 123 H 23 103/75 97 01/20/24 20:30 125 H 103/63 96 01/20/24 20:11 126 H 27 H 106/64 100 01/20/24 20:03 128 H 94/62 L 100 01/20/24 19:13 95 01/20/24 19:04 93/65 L 95 01/20/24 18:55 141 H 24 77/46 L 90 01/20/24 18:41 37.1 C 145 H 24 51/40 L 90 01/20/24 18:30 153 H O2 Del Method O2 Flow Rate 01/20/24 21:43 Oxymask 9 01/20/24 21:25 Oxymask 13 01/20/24 21:00 Oxymask 13 01/20/24 20:30 Oxymask 13 01/20/24 20:11 Oxymask 13 01/20/24 20:03 Oxymask 13 01/20/24 19:13 Oxymask 13 01/20/24 19:04 Oxymask 13 01/20/24 18:55 Oxymask 13 01/20/24 18:41 Oxymask 11 01/20/24 18:30 Laboratory Results Laboratory Results WBC 12.96 K/ul (4.8-10.8) H 01/20/24 18:42 RBC 5.23 M/uL (4.70-6.10) 01/20/24 18:42 Hgb 14.3 g/dl (14.0-18.0) 01/20/24 18:42 POC Hgb 15.6 g/dl (14.0-18.0) 01/20/24 18:48 Hct 46.9 % (42.0-52.0) 01/20/24 18:42 POC Hct 46 % (42-52) 01/20/24 18:48 MCV 89.7 fL (80.0-100.0) 01/20/24 18:42 MCH 27.3 pg (25.0-34.0) 01/20/24 18:42 MCHC 30.5 g/dL (32.0-36.0) L 01/20/24 18:42 RDW Std Deviation 53.3 fL (36.4-46.3) H 01/20/24 18:42 RDW Coeff of Estela 16.7 % (11.5-14.5) H 01/20/24 18:42 Plt Count 271 K/uL (130-400) 01/20/24 18:42 MPV 9.6 fL (9.4-12.4) 01/20/24 18:42 Immature Gran % (Auto) 0.6 % 01/20/24 18:42 Neut % (Auto) 86.1 % 01/20/24 18:42 Lymph % (Auto) 7.3 % 01/20/24 18:42 [place] % (Auto) 5.4 % 01/20/24 18:42 Eos % (Auto) 0.1 % 01/20/24 18:42 Baso % (Auto) 0.5 % 01/20/24 18:42 Neut # (Auto) 11.17 K/uL (1.40-6.50) H 01/20/24 18:42 Lymph # (Auto) 0.94 K/uL (1.20-3.40) L 01/20/24 18:42 [place] # (Auto) 0.70 K/uL (0.11-0.59) H 01/20/24 18:42 Eos # (Auto) 0.01 K/uL (0.00-0.50) 01/20/24 18:42 Baso # (Auto) 0.06 K/uL (0.00-0.20) 01/20/24 18:42 Immature Gran # (Auto) 0.08 K/uL (0.01-0.20) 01/20/24 18:42 Absolute Nucleated RBC 0.02 K/uL (0.00-0.12) 01/20/24 18:42 Nucleated RBC % (auto) 0.2 % 01/20/24 18:42 Polychromasia 1+ 01/20/24 18:42 Echinocytes 3+ 01/20/24 18:42 Acanthocytes (Spur) 1+ 01/20/24 18:42 VBG pH 7.30 (7.36-7.41) L 01/20/24 19:08 VBG pCO2 54 mmHg (38-50) H 01/20/24 19:08 VBG pO2 36 mmHg 01/20/24 19:08 VBG HCO3 27 mmol/L 01/20/24 19:08 VBG O2 Saturation < 60.0 % 01/20/24 19:08 VBG Base Excess -0.7 mEq/L 01/20/24 19:08 POC Sodium 137 mmol/L (135-144) 01/20/24 18:48 Sodium 137 mmol/L (136-145) 01/20/24 18:42 POC Potassium 4.3 mmol/L (3.3-5.0) 01/20/24 18:48 Potassium 4.4 mmol/L (3.5-5.1) 01/20/24 18:42 POC Chloride 100 mmol/L (101-112) L 01/20/24 18:48 Chloride 101 mmol/L (98-107) 01/20/24 18:42 Carbon Dioxide 24 mmol/L (21-32) 01/20/24 18:42 POC Total CO2 27 mmol/L (24-31) 01/20/24 18:48 Anion Gap 12 (3-11) H 01/20/24 18:42 POC Anion Gap 16.0 mmol/L (16-25) 01/20/24 18:48 POC BUN 12 mg/dl (7-18) 01/20/24 18:48 BUN 13 mg/dl (6-23) 01/20/24 18:42 Creatinine 0.80 mg/dl (0.6-1.4) 01/20/24 18:42 POC Creatinine 0.8 mg/dl (0.6-1.3) 01/20/24 18:48 Est Cr Clr Drug Dosing 93.8 ml/min 01/20/24 18:42 Est GFR ( Amer) 110.2 ml/min 01/20/24 18:42 Est GFR (Non-Af Amer) 95.1 ml/min 01/20/24 18:42 BUN/Creatinine Ratio 16.3 (10-20) 01/20/24 18:42 Glucose 177 mg/dl (70-99(Fasting)) H 01/20/24 18:42 POC Glucose (other) 168 mg/dl (70-99) H 01/20/24 18:48 Lactate 5.0 mmol/L (0.4-2.0) H* 01/20/24 23:14 Calcium 9.4 mg/dl (8.6-10.3) 01/20/24 18:42 POC Ioniz Calcium [place] 1.17 mmol/l (1.12-1.32) 01/20/24 18:48 Total Bilirubin 0.8 mg/dl (0.2-1.0) 01/20/24 18:42 AST 12 U/L (13-39) L 01/20/24 18:42 ALT 12 U/L (7-52) 01/20/24 18:42 Alkaline Phosphatase 67 U/L (34-104) 01/20/24 18:42 Troponin I High Sens 4.8 pg/ml (0-20) 01/20/24 18:42 Total Protein 6.0 gm/dl (6.0-8.3) 01/20/24 18:42 Albumin 3.7 gm/dl (3.4-5.0) 01/20/24 18:42 Globulin 2.3 gm/dl (2.5-4.0) L 01/20/24 18:42 Albumin/Globulin Ratio 1.6 (0.9-2) 01/20/24 18:42 Procalcitonin 0.24 ng/ml (0-0.5) 01/20/24 18:42 Urine Color Yellow 01/20/24 21:15 Urine Appearance Cloudy (Clear) A 01/20/24 21:15 Urine pH 5.5 (4.5-7.5) 01/20/24 21:15 Ur Specific [place] 1.035 (1.000-1.030) H 01/20/24 21:15 Urine Protein Trace (Negative) H 01/20/24 21:15 Urine Glucose (UA) Negative (Negative) 01/20/24 21:15 Urine Ketones Trace (Negative) H 01/20/24 21:15 Urine Blood 3+ (Negative) H 01/20/24 21:15 Urine Nitrite Negative (Negative) 01/20/24 21:15 Urine Bilirubin Negative (Negative) 01/20/24 21:15 Urine Urobilinogen Negative (Negative) 01/20/24 21:15 Ur Leukocyte Esterase Negative (Negative) 01/20/24 21:15 Urine WBC (Auto) 0-5 /hpf (0-5) 01/20/24 21:15 Urine RBC (Auto) >20 /hpf (0-2) H 01/20/24 21:15 U Hyaline Cast (Auto) 6-10 /lpf (0-2) H 01/20/24 21:15 U Epithel Cells (Auto) 0-2 /hpf (0-2) 01/20/24 21:15 Urine Bacteria (Auto) None Seen (None Seen) 01/20/24 21:15 Calcium Oxalate Crystal Present (None Prsent) A 01/20/24 21:15 Nasal Screen MRSA (PCR) Negative (Negative) 01/20/24 22:50 Adenovirus (PCR) Not Detected (NotDetected) 01/20/24 Unknown B. pertussis DNA (PCR) Not Detected (NotDetected) 01/20/24 Unknown B.parapertussis DNA PCR Not Detected (NotDetected) 01/20/24 Unknown C. pneumoniae DNA (PCR) Not Detected (NotDetected) 01/20/24 Unknown Coronavirus OC43 (PCR) Not Detected (NotDetected) 01/20/24 Unknown Coronavirus HKU1 (PCR) Not Detected (NotDetected) 01/20/24 Unknown Coronavirus 229E (PCR) Not Detected (NotDetected) 01/20/24 Unknown SARS-CoV-2 (PCR) Not Detected (NotDetected) 01/20/24 Unknown Coronavirus NL63 (PCR) Not Detected (NotDetected) 01/20/24 Unknown Human Metapneumovir PCR Not Detected (NotDetected) 01/20/24 Unknown Influenza Type A (PCR) Not Detected (NotDetected) 01/20/24 Unknown Influenza Type B (PCR) Not Detected (NotDetected) 01/20/24 Unknown M. pneumoniae (PCR) Not Detected (NotDetected) 01/20/24 Unknown Parainfluenza 1 (PCR) Not Detected (NotDetected) 01/20/24 Unknown Parainfluenza 2 (PCR) Not Detected (NotDetected) 01/20/24 Unknown Parainfluenza 3 (PCR) Not Detected (NotDetected) 01/20/24 Unknown Parainfluenza 4 (PCR) Not Detected (NotDetected) 01/20/24 Unknown RSV (PCR) Not Detected (NotDetected) 01/20/24 Unknown Entero/Rhino (PCR) Not Detected (NotDetected) 01/20/24 Unknown Impressions Chest CTA 01/20/24 18:43 Exam(s): CTA CHEST IV Amt: 118 cc opti 320 EXAM: CT Angiography Chest With Intravenous Contrast CLINICAL HISTORY: Reason for exam: PE. TECHNIQUE: Axial computed tomographic angiography images of the chest with intravenous contrast. CTDI is 14.25 mGy and DLP is 633.97 mGy-cm. Automated exposure control was utilized for the study. A dose lowering technique was utilized adhering to the principles of ALARA. MIP reconstructed images were created and reviewed. COMPARISON: 07/26/2023 FINDINGS: Pulmonary arteries: Unremarkable. No pulmonary embolism. Aorta: No acute findings. No thoracic aortic aneurysm. Lungs: New left lower lobe and lingular infiltrates. Diffuse changes COPD. No mass. Pleural space: Small left pleural effusion. No pneumothorax. Heart: Unremarkable. No cardiomegaly. No significant pericardial effusion. No evidence of RV dysfunction. Bones/joints: No acute fracture. No dislocation. Soft tissues: Unremarkable. Lymph nodes: Unremarkable. No enlarged lymph nodes. IMPRESSION: 1. Left lingular and lower lobe pneumonia 2. Small left pleural effusion likely reactive in nature. No pulmonary embolus Electronically signed by: Victorino Landrum MD 01/20/24 21:32 PM Code Status & VTE Plan Code Status Full code PG Care Time/CCT Total # of Minutes Spent Total Time Spent with Patient: Total time spent is greater than 50% in coordination of care (as documented) at patient's floor/unit and/or counseling patient: Coding Level of Care Code 03796 INT INP/OBS CARE 3/75MIN Diagnoses LLL pneumonia J18.9 Pneumonia type: due to unspecified organism Acute hypoxemic respiratory failure J96.01 COPD with acute exacerbation J44.1 Pulmonary cachexia due to COPD R64; J44.9 End stage COPD J44.9 History of pulmonary embolus (PE) Z86.711 Acute and chronic respiratory failure J96.20 Gastroesophageal reflux disease, unspecified whether esophagitis present K21.9 Esophagitis presence: esophagitis presence not specified Presence of drug coated stent in left circumflex coronary artery Z95.5 Dyslipidemia, goal LDL below 70 E78.5 Type 2 diabetes mellitus E11.9 CAD (coronary artery disease) I25.10 (1) LLL pneumonia Pneumonia type: due to unspecified organism Qualified Code(s): J18.9 - Pneumonia, unspecified organism (8) GERD (gastroesophageal reflux disease) Esophagitis presence: esophagitis presence not specified Qualified Code(s): K21.9 - Gastro-esophageal reflux disease without esophagitis
[2024-01-20 22:23] LABS: Appearance Urine Cloudy (Clear); Bacteria Urine Automated None Seen (None Seen); Bilirubin Urine Negative (Negative); Blood Urine 3+ (Negative); Calcium Oxalate Crystals Urine Present (None Prsent); Color Urine Yellow; Epithelial Cell Urine Auto 0-2 /hpf (0-2); Glucose Urine UA Negative (Negative); Ketones Urine Trace (Negative); Leukocyte Esterase Urine Negative (Negative); Nitrite Urine Negative (Negative); Protein Urine Trace (Negative); RBC Urine Automated >20 /hpf (0-2); Specific Gravity Urine 1.035 (1.000-1.030); Urobilinogen Urine Negative (Negative); WBC Urine Automated 0-5 /hpf (0-5); pH Urine 5.5 (4.5-7.5)
[2024-01-20] MEDS: SODIUM CHLORIDE 0.9% 500 ML IV ONE (23:10)
[2024-01-20] MEDS ORDERED: DEXTROSE 50% 50 ML SYRINGE IV PRN (23:49)
[2024-01-20] MEDS ORDERED: GLUCOSE 10 TAB/TUBE PO PRN (23:49)
[2024-01-20] MEDS ORDERED: CARBOHYDRATES FOR HYPOGLYCEMIA PO PRN (23:49)
[2024-01-20] MEDS ORDERED: NITROGLYCERIN SL 0.4 MG/TAB TAB SL PRN (23:49)
[2024-01-20] MEDS ORDERED: GLUCAGON FOR INJ 1 MG VIAL SQ PRN (23:49)
[2024-01-20] MEDS ORDERED: ONDANSETRON INJ 2 MG/ML 2 ML VIAL IV PRN (23:49)
[2024-01-20] MEDS ORDERED: ACETAMINOPHEN 325 MG TAB PO PRN (23:49)
[2024-01-20] MEDS ORDERED: GLUCOSE 40% GEL 15 GM TUBE PO PRN (23:49)
[2024-01-21] MEDS ORDERED: ALBUT/IPRATROP 3MG/0.5MG NEB 3 ML VIAL NEB PRN (00:07)
[2024-01-21] MEDS: methylPREDNISolone 40 MG in SYRINGE 0 ML IV SCH (02:25)
[2024-01-21] MEDS: AZITHROMYCIN 500 MG in DEXTROSE 5% 250 ML IV SCH (02:37)
[2024-01-21] MEDS: PIPERACILLIN/TAZOBACTAM 4.5 GM in DEXTROSE 5% MINI-B 100 ML IV SCH (04:50)
[2024-01-21 05:27] LABS: BUN Creatinine Ratio 16.4 (10-20); Creatinine Clr Calc Pharmacy 112.1 ml/min; Est GFR (African American) 118.5 ml/min; Est GFR (Non-African American) 102.3 ml/min; Magnesium 1.3 mg/dl (1.7-2.4); Phosphorus 3.3 mg/dl (2.5-4.9); Potassium 4.5 mmol/L (3.5-5.1)
[2024-01-21 05:56] LABS: Basophils # (auto) 0.01 K/uL (0.00-0.20); Basophils % (auto) 0.1 %; Dohle Bodies 1+; Echinocytes 2+; Hematocrit (blood only) 36.7 % (42.0-52.0); Hemoglobin 11.3 g/dl (14.0-18.0); Immature Granulocytes # (auto) 0.05 K/uL (0.01-0.20); Immature Granulocytes % (auto) 0.4 %; Lymphocytes # (auto) 0.19 K/uL (1.20-3.40); Lymphocytes % (auto) 1.6 %; Mean Corpuscular Hemoglobin 27.5 pg (25.0-34.0); Mean Corpuscular Hgb Conc 30.8 g/dL (32.0-36.0); Mean Corpuscular Volume 89.3 fL (80.0-100.0); Mean Platelet Volume 9.8 fL (9.4-12.4); Monocytes # (auto) 0.27 K/uL (0.11-0.59); Monocytes % (auto) 2.3 %; Neutrophils % (auto) 95.6 %; Platelet Count 208 K/uL (130-400); RDW Coefficient of Variation 16.6 % (11.5-14.5); RDW Standard Deviation 53.7 fL (36.4-46.3); Red Blood Count 4.11 M/uL (4.70-6.10); White Blood Count 11.52 K/ul (4.8-10.8)
--- NOTE | 2024-01-21 06:50 | XRay Report ---
XR chest 1V portable HISTORY: 63 years-old Male Dyspnea acute shortness of breath COMPARISON: CTA chest of same day TECHNIQUE: AP view of the chest FINDINGS: Cardiomediastinal and hilar silhouettes are unchanged. Emphysema with chronic interstitial coarsening . No pneumothorax or overt pulmonary edema. Trace left pleural effusion. Patchy airspace opacities ar e noted within the left mid lung and left lung base. Left subclavian [id number] catheter. Bones ap pear grossly intact. IMPRESSION: 1. Emphysema with left basilar pneumonia. Follow-up imaging to document resolution recommended. 2. Trace left pleural effusion. ACT 112: Negative or not required by law. The above report was generated using voice recognition software. It may contain grammatical, syntax o r spelling errors. Electronically signed by: Sudhakar Biggs M.D. 01/21/2024 6:49 AM
[2024-01-21] MEDS: ALBUT/IPRATROP 3MG/0.5MG NEB 3 ML VIAL NEB SCH (06:56)
[2024-01-21 07:12] LABS: Estimated Average Glucose 151 mg/dl; Hemoglobin A1C 6.9 % (4.5-5.6)
[2024-01-21] MEDS: ENOXAPARIN INJ 40 MG/0.4 ML SYR SQ SCH (08:00)
[2024-01-21] MEDS: TAMSULOSIN HCL 0.4 MG CAP PO SCH (08:37)
[2024-01-21] MEDS: ASPIRIN 81 MG ECTAB PO SCH (08:38)
[2024-01-21] MEDS: guaiFENesin 600 MG TABCR PO SCH (08:38)
[2024-01-21] MEDS: PANTOprazole 40 MG TAB PO SCH (08:38)
[2024-01-21] MEDS: ATORVASTATIN 40 MG TAB PO SCH (08:39)
[2024-01-21] MEDS: GABAPENTIN 600 MG TAB PO SCH (08:39)
[2024-01-21] MEDS: DULoxetine HCL 60 MG CAP PO SCH (08:39)
[2024-01-21] MEDS: FLUTICASONE/VILANTEROL 200/25MCG 14 PUFFS/INHALER INH SCH (08:40)
[2024-01-21] MEDS: ROFLUMILAST 500 MCG TAB PO SCH (08:41)
--- NOTE | 2024-01-21 09:10 | Electrocardiogram Report ---
Test Reason : Blood Pressure : / mmHG Vent. Rate : 148 BPM Atrial Rate : 148 BPM P-R Int : 128 ms QRS Dur : 076 ms QT Int : 272 ms P-R-T Axes : 068 080 082 degrees QTc Int : 427 ms Sinus tachycardia Nonspecific ST abnormality Abnormal ECG When compared with ECG of 26-JUL-2023 17:58, ST no longer elevated in Inferior leads Confirmed by Chapin Mohamud ([id number]) on 01/21/2024 9:10:24 AM Referred By: REFERRED SELF Confirmed By:Fernie Mohamud
[2024-01-21] MEDS: INSULIN ASPART PER UNIT CHARGE SC SCH (09:37)
--- NOTE | 2024-01-21 12:55 | Hospitalist Progress Note ---
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 Guaifenesin extended release 1200 mg p.o. twice daily Zosyn 4.5 g IV every 8 hours Azithromycin 500 mg IV daily Blood pressure is still low Continue usual inhalers: Breo elliptica, Incruse Ellipta Continue Daliresp MRSA swab Nasal cannula oxygen with titration to maintain pulse ox 92-94% CAD/hypertension/history of coronary left circumflex artery stent/hyperlipide brady- Continue aspirin 81 mg daily, atorvastatin 80 mg daily, metoprolol succinate 50 mg daily Diabetes mellitus- Hold metformin Placed on Accu-Cheks with NovoLog SSI Patient has been followed by palliative service in the past Will reconsult palliative. History of stage IV lung cancer: Diagnosed in 2011, status post radiation therapy and chemotherapy Currently in remission History of prostate cancer: Diagnosed in 2021 Admission and Anticipated Discharge Date Admission Date: January 20, 2024 Subjective Patient seen and examined in the emergency department, still somewhat short of breath Review of Systems Review of Systems: All systems reviewed are negative, apart from the ones contained in the history. Physical Exam Physical Exam: The patient is awake, alert and oriented 3, well developed and well nourished, normocephalic and atraumatic, lying in bed and in no acute distress. HEENT--PERRL, EOMI, mucous membranes and oropharynx mildly dry Neck--supple. No JVD. No bruits. Thyroid normal, trachea midline, no adenopathy. Heart--normal S1 and S2. No murmurs, rubs or gallops. Lungs--reduced air entry on auscultation, bibasilar wheeze Abdomen--normal bowel sounds and soft. Extremities--no cyanosis or clubbing. No edema. Dermatologic--normal skin turgor, normal color, no abnormal lymph nodes, no rash. Neurologic--cranial nerves II through XII grossly intact. Rheumatologic--normal range of motion. Psychiatric--normal affect. Results & Data Results & Data Vital Signs (Past 12 Hours) Vital Signs Temp Pulse Pulse Resp BP BP Pulse Ox 01/21/24 10:48 112 H 16 97 01/21/24 08:52 109 H 20 94/65 L 98 01/21/24 07:20 102 H 01/21/24 06:57 104 H 20 99 01/21/24 05:30 102 H 19 90/63 L 97 01/21/24 05:00 101 H 26 H 112/68 99 01/21/24 04:30 103 H 16 94/70 L 98 01/21/24 04:00 113 H 27 H 97/75 L 94 01/21/24 03:30 112 H 23 110/77 01/21/24 03:00 106 H 18 91/62 L 96 01/21/24 02:30 106 H 17 87/63 L 96 01/21/24 02:00 108 H 21 89/62 L 97 01/21/24 01:30 109 H 20 96/69 L 98 01/21/24 01:15 116 H 24 99/71 L 98 01/21/24 01:00 116 H 27 H 102/67 96 01/21/24 01:00 01/21/24 01:00 98.4 F O2 Del Method O2 Flow Rate 01/21/24 10:48 Nasal Cannula 2 01/21/24 08:52 Nasal Cannula 2 01/21/24 07:20 01/21/24 06:57 Nasal Cannula 4 01/21/24 05:30 Nasal Cannula 4 01/21/24 05:00 Nasal Cannula 4 01/21/24 04:30 Nasal Cannula 4 01/21/24 04:00 Nasal Cannula 4 01/21/24 03:30 01/21/24 03:00 Nasal Cannula 4 01/21/24 02:30 Nasal Cannula 4 01/21/24 02:00 Nasal Cannula 4 01/21/24 01:30 Nasal Cannula 4 01/21/24 01:15 Nasal Cannula 4 01/21/24 01:00 Nasal Cannula 4 01/21/24 01:00 Nasal Cannula 4 01/21/24 01:00 PG Care Time/CCT Total # of Minutes Spent Total Time Spent with Patient: Total time spent is greater than 50% in coordination of care (as documented) at patient's floor/unit and/or counseling patient: Coding Level of Care Code 54718 SUB INP/OBS CARE 2/35MIN Diagnoses LLL pneumonia J18.9 Pneumonia type: due to unspecified organism Acute hypoxemic respiratory failure J96.01 COPD with acute exacerbation J44.1 Pulmonary cachexia due to COPD R64; J44.9 End stage COPD J44.9 History of pulmonary embolus (PE) Z86.711 Acute and chronic respiratory failure J96.20 Gastroesophageal reflux disease, unspecified whether esophagitis present K21.9 Esophagitis presence: esophagitis presence not specified 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
[2024-01-21] MEDS: METOPROLOL SUCC 50MG EXT REL TAB PO SCH (20:31)
[2024-01-21] MEDS: UMECLIDINIUM BROMIDE 62.5MCG/BLISTER 7 PUFFS/INHALER INH SCH (21:15)
[2024-01-22 06:58] LABS: Hematocrit (blood only) 34.5 % (42.0-52.0); Hemoglobin 11.1 g/dl (14.0-18.0); Mean Corpuscular Hemoglobin 27.5 pg (25.0-34.0); Mean Corpuscular Hgb Conc 32.2 g/dL (32.0-36.0); Mean Corpuscular Volume 85.4 fL (80.0-100.0); Mean Platelet Volume 9.4 fL (9.4-12.4); Platelet Count 222 K/uL (130-400); RDW Coefficient of Variation 16.3 % (11.5-14.5); RDW Standard Deviation 50.6 fL (36.4-46.3); Red Blood Count 4.04 M/uL (4.70-6.10); White Blood Count 11.02 K/ul (4.8-10.8)
[2024-01-22 07:24] LABS: Albumin Level 3.2 gm/dl (3.4-5.0); BUN Creatinine Ratio 18.5 (10-20); Calcium 8.6 mg/dl (8.6-10.3); Creatinine Clr Calc Pharmacy 139.4 ml/min; Est GFR (African American) 129.5 ml/min; Est GFR (Non-African American) 111.7 ml/min; Magnesium 1.8 mg/dl (1.7-2.4); Phosphorus 2.3 mg/dl (2.5-4.9); Potassium 4.1 mmol/L (3.5-5.1)
[2024-01-22 08:07] LABS: Echinocytes 2+; Immature Granulocytes # (auto) 0.07 K/uL (0.01-0.20); Immature Granulocytes % (auto) 0.6 %; Lymphocytes # (auto) 0.21 K/uL (1.20-3.40); Lymphocytes % (auto) 1.9 %; Monocytes # (auto) 0.34 K/uL (0.11-0.59); Monocytes % (auto) 3.1 %; Neutrophils % (auto) 94.4 %; Poikilocytosis Present; Polychromasia 1+; Toxic Vacuolation 1+
[2024-01-22] MEDS ORDERED: MoRPHine SULFATE 2 MG/ML CARP IV PRN (09:48)
[2024-01-22] MEDS: MoRPHine SULFATE 2 MG/ML CARP IV STA (10:35)
[2024-01-22] MEDS: MAGNESIUM SULFATE / D5W 1 GM/100 ML BAG IV ONE (10:35)
--- NOTE | 2024-01-22 13:06 | Hospitalist Progress Note ---
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 Chest x-ray showed left lower lobe and left lingular pneumonia In the ED, DuoNeb, Solu-Medrol 125 mg IV, Zosyn 4.5 g IV, and 2 L normal saline bolus Solu-Medrol 40 mg IV every 8 hours Duonebs every 4 hours while awake and every 2 hours when necessary. Guaifenesin extended release 1200 mg p.o. twice daily Zosyn 4.5 g IV every 8 hours Azithromycin 500 mg IV daily Blood pressure is still low Continue usual inhalers: Breo elliptica, Incruse Ellipta Continue Daliresp MRSA swab was negative Nasal cannula oxygen with titration to maintain pulse ox 92-94% IV morphine 1 mg every 4 hours as needed for air hunger and anxiety CAD/hypertension/history of coronary left circumflex artery stent/hyperlipidemia- Continue aspirin 81 mg daily, atorvastatin 80 mg daily, metoprolol succinate 50 mg daily Diabetes mellitus- Hold metformin Placed on Accu-Cheks with NovoLog SSI Patient has been followed by palliative service in the past Will reconsult palliative. History of stage IV lung cancer: Diagnosed in 2011, status post radiation therapy and chemotherapy Currently in remission History of prostate cancer: Diagnosed in 2021 Admission and Anticipated Discharge Date Admission Date: January 20, 2024 Subjective Patient seen and examined in the, still somewhat short of breath Review of Systems Review of Systems: All systems reviewed are negative, apart from the ones contained in the history. Physical Exam Physical Exam: The patient is awake, alert and oriented 3, well developed and well nourished, normocephalic and atraumatic, lying in bed and in no acute distress. HEENT--PERRL, EOMI, mucous membranes and oropharynx mildly dry Neck--supple. No JVD. No bruits. Thyroid normal, trachea midline, no adenopathy. Heart--normal S1 and S2. No murmurs, rubs or gallops. Lungs--reduced air entry on auscultation, bibasilar wheeze Abdomen--normal bowel sounds and soft. Extremities--no cyanosis or clubbing. No edema. Dermatologic--normal skin turgor, normal color, no abnormal lymph nodes, no rash. Neurologic--cranial nerves II through XII grossly intact. Rheumatologic--normal range of motion. Psychiatric--normal affect. Results & Data Results & Data Vital Signs (Past 12 Hours) Vital Signs Temp Pulse Pulse Pulse Resp BP BP 01/22/24 11:40 97.5 F L 109 H 19 109/69 01/22/24 11:27 106 H 18 01/22/24 07:41 01/22/24 07:37 97.5 F L 111 H 18 124/65 01/22/24 07:10 99 H 01/22/24 07:06 98 H 18 01/22/24 05:00 18 01/22/24 03:15 97.9 F 100 H 20 107/66 Pulse Ox O2 Del Method 01/22/24 11:40 98 Room Air 01/22/24 11:27 91 Room Air 01/22/24 07:41 Room Air 01/22/24 07:37 94 Room Air 01/22/24 07:10 01/22/24 07:06 92 Room Air 01/22/24 05:00 Room Air 01/22/24 03:15 92 Room Air PG Care Time/CCT Total # of Minutes Spent Total Time Spent with Patient: Total time spent is greater than 50% in coordination of care (as documented) at patient's floor/unit and/or counseling patient: Coding Level of Care Code 81391 SUB INP/OBS CARE 2/35MIN Diagnoses LLL pneumonia J18.9 Pneumonia type: due to unspecified organism Acute hypoxemic respiratory failure J96.01 COPD with acute exacerbation J44.1 Pulmonary cachexia due to COPD R64; J44.9 End stage COPD J44.9 History of pulmonary embolus (PE) Z86.711 Acute and chronic respiratory failure J96.20 Gastroesophageal reflux disease, unspecified whether esophagitis present K21.9 Esophagitis presence: esophagitis presence not specified 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
[2024-01-22] MEDS: LORazepam 0.5 MG TAB PO PRN (17:16)
[2024-01-22] MEDS: oxyCODONE HCL IR 5 MG TAB (IMMEDIATE RELEASE) PO PRN (18:29)
[2024-01-22] MEDS: oxyCODONE HCL IR 5 MG TAB (IMMEDIATE RELEASE) PO SCH (21:04)
--- NOTE | 2024-01-23 00:08 | Palliative Care Consultation ---
Date of Consultation January 22, 2024 Assessment & Plan (1) Dyspnea and respiratory abnormalities: Multifocal dyspnea due to terminal COPD, current exacerbation with pneumonia. He remains on IV antibiotics and steroids. Supplemental oxygen currently not needed with SpO2's greater than 90%. He remains significantly exerted and dyspneic with minimal exertion. He is short of breath with conversation. Continues to be very anxious about returning home and not "feeling better." At our initial clinic visit, we initiated a trial of oral Roxanol low-dose to begin trying to help improve the quality of his life with relief of dyspnea. He did not have any substantial relief on the low-dose of oral morphine elixir nor did he have any improvement in his symptoms with the up titration of oral morphine elixir. He is in constant contact with me on the outpatient basis, and speaking to me nearly every day. In spite of our low-dose adjustments up to a dose of 10 to 12 mg of morphine orally, he continued to have no relief. In my last discussion outpatient with patient, he shared that he had better relief wi th oral oxycodone and would prefer to resume a trial of that. Oral oxycodone 5 mg was tried on the outpatient basis but in the midst of that trial, he was admitted. This time he feels he needs something on a more regular basis. Advised that we will begin a trial of oxycodone on a scheduled basis i.e. 5 mg p.o. 3 times daily and he may use Oxy IR 7.5 mg every 4 hours as needed in between for breakthrough dyspnea, panic, air hunger. He was in agreement with this plan. (2) Weakness generalized: Severe muscle deconditioning due to pulmonary disease, pulmonary cachexia, vascular insufficiency. (3) Sleep disorder breathing: (4) Poor sleep: Due to anxiety, respiratory failure, and air hunger. He has some Ativan ordered that he is going to try today to see if it helps improve his anxiety as well as relieve some of his insomnia. (5) Advanced care planning/counseling discussion: I met with Isak at the bedside for 25 minutes for a [id number] advance care planning conversation, which is a continuation of the discussion we had in clinic. He reaffirms his CODE STATUS decision of no code, DNR/DNI. Isak has been very resistant to the offer of implementing home health support and/or home hospice. We revisited this conversation again today and he continues to be resistant, stating "I just want to feel better, these medicines you guys or give me are not doing that yet." We discussed the overall terminal nature of his COPD and how the current medications including steroids may no longer provide the relief they once did. While the antibiotic may help address the infection issue, overall his COPD is very severe and terminal, which she has discussed in prior visits with both myself as well is pulmonary medicine. It is unlikely that any medication even here in the hospital make his COPD related symptoms feel dramatically better. The rationale for trial of scheduled opioids is to help provide him with some improvement in his quality of life by relieving his dyspnea is that perhaps he can tolerate some activities better such as his ADLs and conversation with friends and family. He was in agreement to this trial as outlined above under dyspnea. I will follow-up with him on Thursday. (6) Pulmonary cachexia due to COPD: (7) Palliative care by specialist: (8) COPD (chronic obstructive pulmonary disease): Plan * A scheduled Oxy IR trial of 5 mg p.o. 3 times daily as well as Oxy IR 7.5 mg p.o. every 4 hours as needed for breakthrough air hunger/dyspnea/pain has been ordered. * He has an order to trial low-dose Ativan which may help with his insomnia and anxiety. * Further ACP discussions with regards to disposition planning and the potential integration of hospice will be revisited on Thursday. * Please note: the above document was generated using voice recognition software. It may contain unintentional grammatical, syntax or spelling err ors. Any formal questions or concerns about the content, text or information contained within the body of this dictation should be directly addressed to the provider for clarification. Thank you for allowing us to participate in the ongoing care of this patient. Please don't hesitate to call or page with any additional concerns. Dr. Leonarda Fernando DNP Director, Palliative Care History of Present Illness Reason for Consultation: Continuation of care, patient is established in outpatient palliative medicine Attending Physician: Kristi Rushing MD History of Present Illness Isak is a 63-year-old gentleman with terminal COPD who is well-known to me from outpatient pulmonary medicine clinic. He is admitted with progressive dyspnea, cough and weakness. He has been found to have a small pneumonia. He called me the day before his ER presentation with a complaint of increased cough, congestion, shortness of breath and fatigue. At that time we initiated antibiotic and steroid taper for an acute exacerbation of COPD which unfortunately had been progressing to a pneumonia in the interim. He presents to the hospital with his typical complaints of unrelieved dyspnea and occasional chest tightness/anterior chest wall pain due to his severe dyspnea. He is still occasionally smoking. He lives at home alone but has family support In prior discussions, we have reviewed the option of adding hospice or visiting nurse services to his care. He has steadfastly refused these. Please see palliative medicine notes for more details. At present, he is lying in bed in a very cool nearly cold room. He states this is the best temperature for him to breathe more comfortably. No matter what he does he is winded and exerted. He is not able to speak more than 3 word sentences. He has a slight cough it is at times dry it is at times bronchitic. He is short of breath with any exertion. He states that even sitting up at the edge of his bed to use the urinal trigger significant dyspnea. His oxygen vibha ting at this time continues to not indicate a need for supplemental oxygenation with SpO2 ranging in the 90s on room air. He remains on antibiotic therapy through his IVs which are being administered through his access port. His mood is very despondent. He states that he came to the hospital hoping to feel better in spite of the therapies that have been initiated, he still does not feel better.. Allergies Allergy/AdvReac Type Severity Reaction Status Date / Time No Known Allergies Allergy Verified 01/20/24 22:55 Home Medications Medication Instructions Recorded Confirmed Type lancets 30 gauge (OneTouch Delica #100 ea 07/11/21 12/29/23 Rx Lancets) azelastine 137 mcg (0.1 %) nasal 1 spray intranasal BID PRN 08/21/22 01/20/24 Rx spray aerosol ALLERGIC RHINITIS #90 mL Portable Oxygen E0431 #1 ea 10/13/22 12/29/23 Rx aspirin 81 mg tablet,delayed 81 mg PO QAM 01/08/23 01/20/24 History release (Adult Low Dose Aspirin) albuterol sulfate 90 mcg/actuation 2 puff inhalation Q6H PRN 04/27/23 01/20/24 Rx aerosol inhaler Shortness Of Breath Or Wheezing #18 grams azithromycin 250 mg tablet 250 mg PO MOWEFR #36 tabs 04/27/23 01/20/24 Rx umeclidinium 62.5 mcg/actuation 1 inh inhalation QPM #3 Inhalers 04/27/23 01/20/24 Rx blister powder for inhalation (Incruse Ellipta) blood sugar diagnostic (OneTouch #100 ea 07/06/23 12/29/23 Rx Verio test strips) metformin 500 mg tablet 1,000 mg (2 x 500 mg) PO BID 90 07/06/23 01/20/24 Rx days #360 tabs guaifenesin 600 mg tablet, 1,200 mg (2 x 600 mg) PO Q12 #30 07/30/23 01/20/24 Rx extended release 12 hr (Mucinex) tabs albuterol sulfate 2.5 mg/3 mL 2.5 mg (3 mL) inhalation Q4H PRN 08/24/23 01/20/24 Rx (0.083 %) solution for nebulization COPD #360 mL ipratropium bromide 0.02 % 2.5 ml inhalation Q4H PRN COPD 08/24/23 01/20/24 Rx solution for inhalation #300 mL Breo Ellipta 200 mcg-25 mcg/dose 1 inh inhalation QAM #60 ea 10/01/23 01/20/24 Rx powder for inhalation (fluticasone furoate-vilanterol) duloxetine 60 mg capsule,delayed 60 mg PO QAM 30 days #30 caps 10/22/23 01/20/24 Rx release (Cymbalta) gabapentin 600 mg tablet 600 mg PO TID 30 days #90 tabs 10/22/23 01/20/24 Rx hydroxyzine HCl 25 mg tablet 25 mg PO HS PRN insomnia #90 tabs 11/05/23 01/20/24 Rx atorvastatin 80 mg tablet 80 mg PO QAM #90 tabs 12/23/23 01/20/24 Rx roflumilast 500 mcg tablet 500 mcg PO QAM #90 tabs 12/23/23 01/20/24 Rx (Daliresp) omeprazole 40 mg capsule,delayed 40 mg PO QAM #90 caps 12/24/23 01/20/24 Rx release doxycycline hyclate 100 mg capsule 100 mg PO BID 7 days #14 caps 01/20/24 01/20/24 Rx lorazepam 0.5 mg tablet 0.5 mg PO Q6H PRN anxiety or 01/20/24 01/20/24 Rx insomnia #20 tabs metoprolol succinate 50 mg 50 mg PO DAILY 01/20/24 01/20/24 History tablet,extended release 24 hr morphine 20 mg/5 mL (4 mg/mL) oral 2.5 mg PO .Q 3 HOURS PRN dyspnea 01/20/24 01/20/24 History solution or air hunger nitroglycerin 0.4 mg sublingual 0.4 mg sublingual PRN PRN chest 01/20/24 01/20/24 Rx tablet (Nitrostat) pain #25 tabs oxycodone 5 mg tablet 5 mg PO Q4H PRN dyspnea due to 01/20/24 01/20/24 Rx severe COPD 3 weeks #60 tabs prednisone 10 mg tablet See Rx Instructions PO .COMPLEX 01/20/24 01/20/24 Rx copd exacerbation 1 week #20 tabs tamsulosin 0.4 mg capsule 0.4 mg PO QAM 01/20/24 01/20/24 History Patient History Medical History (Updated 01/22/24 @ 23:59 by Leonarda Fernando, GLENN) Advanced care planning/counseling discussion Sleep disorder breathing Poor sleep Weakness generalized Pulmonary cachexia due to COPD Weight loss Palliative care by specialist Dyspnea and respiratory abnormalities End stage COPD History of tachycardia 01/06/23, recently seen in the [place] ER for tachycardia. Pt stated the doctor increased his metoprolol to 75mg daily. History of home oxygen therapy "USED WHEN I FIRST HAD IT, NOW I DON'T THINK IT HELPS, SO I DON'T USE IT VERY OFTEN" Chronic obstructive pulmonary disease Emphysema lung Hyperlipidemia Prostate cancer 2021; RADIATION TREATMENT, NO SX. STEMI (ST elevation myocardial infarction) (01/2021) 2020, BROUGHT TO [place] ER-"HAVING PAIN AND DIDN'T FEEL WELL"; FOLLOWS W/ [place] [facility] BPH with elevated PSA CAD (coronary artery disease) S/p stent 2020 S/p YARA to LCx 01/15/2021 Type 2 diabetes mellitus Neuropathy Stomach ulcer HX -UNDER CONTROL GERD (gastroesophageal reflux disease) SOB (shortness of breath) on exertion Asthma Depression Anxiety Hypertension History of pulmonary embolus (PE) 2016-NO ISSUES SINCE H/O pneumothorax Severe chronic obstructive pulmonary disease Evaluated for lung transplant, pulmonary function not sufficiently low at this time History of lung cancer (2011) NON SMALL CELL LUNG CANCER - STAGE IV DX 2011-LEFT LOBE/NO SURGERY/RADIATION/CHEMO FEEDING TUBE PRESENT FOR 1.5 YEARS DURING THIS TIME Surgical History Hx of inguinal hernia surgery History of cardiac cath W/ X1 STENT- 2020- FOLLOWS W/ [place] [facility] S/P cystoscopy with ureteral stent placement S/P REMOVAL STENT ALSO History of prostate biopsy (01/01/22) History of colonoscopy History of esophagogastroduodenoscopy (EGD) History of vascular access device PORT PLACEMENT-UPPER LEFT IN PLACE-UNSURE OF TYPE OF PORT History of lung surgery STENT TO [id number]? S/P laparoscopic cholecystectomy Family History Mother Coronary heart disease Father , age 90 COPD (chronic obstructive pulmonary disease) Diabetes Aunt Cancer Uncle Diabetes Brother Hypertension Daughter No problems noted. Brother No problems noted. Other No family history of bleeding disorder Denies family history of Ovarian cancer Prostate cancer Breast cancer Colorectal cancer Social History Smoking Status: Former smoker Tobacco Type: Cigars Age Started Using Tobacco: 14; Age Quit Using Tobacco: 53; packs per day: 1; Cigarettes Per Day: occasionally; Second Hand Exposure: Yes; Do You Dip or Chew Tobacco: No; Hx Alcohol Use: No Hx Substance Use: No Preferred Language: Malaysian Communication Ability: Effective Visual Impairment: No Limitations Hearing Ability: Normal Hacksaw Inspector Required: No Beliefs That Will Affect Care: None marital status: Single marital status details: but has 1 daughter Current Living Situation: Alone Current Living Situation Comment: with help from brother current occupational status: employed and disabled current occupation: 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 How many Children do You have: 1 Feels Safe at Home: Yes Diet: regular caffeine: Yes (iced tea) during the past year weight has: remained stable Dental Care, Regularly: No Assistive Devices: Nebulizer and Oxygen - at Night Review of Systems Review of Systems: All systems reviewed & are unremarkable except as noted in Subjective Physical Exam Constitutional: + ill appearing, + thin, + frail appeari ng and + underweight ENMT: MM dry, dentition fair Neck: trachea midline, no thyromegaly Respiratory: inc resp effort with use of accessory muscles, +conversational dyspnea severely diminished breath sounds increased exp phase, faint wheezing + Intermittent cough Cardiovascular: S1S2, no gross JVD Gastrointestinal (Abdomen): soft, NTP, BS+ Musculoskeletal: WILKES, no crepitus Skin: multiple tears/small abrasions c/w puppy induced injury Neurologic: AAOx3 Psychiatric: Mood is subdued, somewhat despondent. Slightly anxious when he speaks of his dyspnea which has not improved despite the addition of IV antibiotics and steroids. He is intermittently tearful. Results & Data Vital Signs (Past 12 Hours) Vital Signs Temp Pulse Pulse Resp BP BP Pulse Ox 01/22/24 20:00 01/22/24 19:17 36.4 C L 107 H 18 100/64 90 01/22/24 15:41 36.4 C L 114 H 20 109/70 91 01/22/24 15:41 109 H 01/22/24 14:57 109 H 18 90 O2 Del Method 01/22/24 20:00 Room Air 01/22/24 19:17 Room Air 01/22/24 15:41 Room Air 01/22/24 15:41 01/22/24 14:57 Room Air Laboratory Results 01/22/24 01/22/24 01/22/24 Range/Units 20:42 16:13 11:37 WBC (4.8-10.8) K/ul RBC (4.70-6.10) M/uL Hgb (14.0-18.0) g/dl POC Hgb (14.0-18.0) g/dl Hct (42.0-52.0) % POC Hct (42-52) % MCV (80.0-100.0) fL MCH (25.0-34.0) pg MCHC (32.0-36.0) g/dL RDW Std Deviation (36.4-46.3) fL RDW Coeff of Estela (11.5-14.5) % Plt Count (130-400) K/uL MPV (9.4-12.4) fL Immature Gran % (Auto) % Neut % (Auto) % Lymph % (Auto) % Dawes % (Auto) % Eos % (Auto) % Baso % (Auto) % Neut # (Auto) (1.40-6.50) K/uL Lymph # (Auto) (1.20-3.40) K/uL Dawes # (Auto) (0.11-0.59) K/uL Eos # (Auto) (0.00-0.50) K/uL Baso # (Auto) (0.00-0.20) K/uL Immature Gran # (Auto) (0.01-0.20) K/uL Absolute Nucleated RBC (0.00-0.12) K/uL Nucleated RBC % (auto) % Toxic Vacuolation Dohle Bodies Polychromasia Poikilocytosis Echinocytes Acanthocytes (Spur) VBG pH (7.36-7.41) VBG pCO2 (38-50) mmHg VBG pO2 mmHg VBG HCO3 mmol/L VBG O2 Saturation % VBG Base Excess mEq/L POC Sodium (135-144) mmol/L Sodium (136-145) mmol/L POC Potassium (3.3-5.0) mmol/L Potassium (3.5-5.1) mmol/L POC Chloride (101-112) mmol/L Chloride (98-107) mmol/L Carbon Dioxide (21-32) mmol/L POC Total CO2 (24-31) mmol/L Anion Gap (3-11) POC Anion Gap (16-25) mmol/L POC BUN (7-18) mg/dl BUN (6-23) mg/dl Creatinine (0.6-1.4) mg/dl POC Creatinine (0.6-1.3) mg/dl Est Cr Clr Drug Dosing ml/min Est GFR ( Amer) ml/min Est GFR (Non-Af Amer) ml/min BUN/Creatinine Ratio (10-20) Glucose (70-99(Fasting)) mg/dl POC Glucose 167 H 193 H 146 H (70-99) mg/dl POC Glucose (other) (70-99) mg/dl Estimat Average Glucose mg/dl Hemoglobin A1c (4.5-5.6) % Lactate (0.4-2.0) mmol/L Calcium (8.6-10.3) mg/dl POC Ioniz Calcium Alona (1.12-1.32) mmol/l Phosphorus (2.5-4.9) mg/dl Magnesium (1.7-2.4) mg/dl Total Bilirubin (0.2-1.0) mg/dl AST (13-39) U/L ALT (7-52) U/L Alkaline Phosphatase (34-104) U/L Troponin I High Sens (0-20) pg/ml Total Protein (6.0-8.3) gm/dl Albumin (3.4-5.0) gm/dl Globulin (2.5-4.0) gm/dl Albumin/Globulin Ratio (0.9-2) Procalcitonin (0-0.5) ng/ml Urine Color Urine Appearance (Clear) Urine pH (4.5-7.5) Ur Specific [place] (1.000-1.030) Urine Protein (Negative) Urine Glucose (UA) (Negative) Urine Ketones (Negative) Urine Blood (Negative) Urine Nitrite (Negative) Urine Bilirubin (Negative) Urine Urobilinogen (Negative) Ur Leukocyte Esterase (Negative) Urine WBC (Auto) (0-5) /hpf Urine RBC (Auto) (0-2) /hpf U Hyaline Cast (Auto) (0-2) /lpf U Epithel Cells (Auto) (0-2) /hpf Urine Bacteria (Auto) (None Seen) Calcium Oxalate Crystal (None Prsent) Nasal Screen MRSA (PCR) (Negative) Adenovirus (PCR) (NotDetected) B. pertussis DNA (PCR) (NotDetected) B.parapertussis DNA PCR (NotDetected) C. pneumoniae DNA (PCR) (NotDetected) Coronavirus OC43 (PCR) (NotDetected) Coronavirus HKU1 (PCR) (NotDetected) Coronavirus 229E (PCR) (NotDetected) SARS-CoV-2 (PCR) (NotDetected) Coronavirus NL63 (PCR) (NotDetected) Human Metapneumovir PCR (NotDetected) Influenza Type A (PCR) (NotDetected) Influenza Type B (PCR) (NotDetected) M. pneumoniae (PCR) (NotDetected) Parainfluenza 1 (PCR) (NotDetected) Parainfluenza 2 (PCR) (NotDetected) Parainfluenza 3 (PCR) (NotDetected) Parainfluenza 4 (PCR) (NotDetected) RSV (PCR) (NotDetected) Entero/Rhino (PCR) (NotDetected) 01/22/24 01/22/24 01/21/24 Range/Units 07:49 06:35 19:41 WBC 11.02 H (4.8-10.8) K/ul RBC 4.04 L (4.70-6.10) M/uL Hgb 11.1 L (14.0-18.0) g/dl POC Hgb (14.0-18.0) g/dl Hct 34.5 L (42.0-52.0) % POC Hct (42-52) % MCV 85.4 (80.0-100.0) fL MCH 27.5 (25.0-34.0) pg MCHC 32.2 (32.0-36.0) g/dL RDW Std Deviation 50.6 H (36.4-46.3) fL RDW Coeff of Estela 16.3 H (11.5-14.5) % Plt Count 222 (130-400) K/uL MPV 9.4 (9.4-12.4) fL Immature Gran % (Auto) 0.6 % Neut % (Auto) 94.4 % Lymph % (Auto) 1.9 % Dawes % (Auto) 3.1 % Eos % (Auto) 0.0 % Baso % (Auto) 0.0 % Neut # (Auto) 10.40 H (1.40-6.50) K/uL Lymph # (Auto) 0.21 L (1.20-3.40) K/uL Dawes # (Auto) 0.34 (0.11-0.59) K/uL Eos # (Auto) 0.00 (0.00-0.50) K/uL Baso # (Auto) 0.00 (0.00-0.20) K/uL Immature Gran # (Auto) 0.07 (0.01-0.20) K/uL Absolute Nucleated RBC (0.00-0.12) K/uL Nucleated RBC % (auto) % Toxic Vacuolation 1+ Dohle Bodies Polychromasia 1+ Poikilocytosis Present Echinocytes 2+ Acanthocytes (Spur) VBG pH (7.36-7.41) VBG pCO2 (38-50) mmHg VBG pO2 mmHg VBG HCO3 mmol/L VBG O2 Saturation % VBG Base Excess mEq/L POC Sodium (135-144) mmol/L Sodium 141 (136-145) mmol/L POC Potassium (3.3-5.0) mmol/L Potassium 4.1 (3.5-5.1) mmol/L POC Chloride (101-112) mmol/L Chloride 108 H (98-107) mmol/L Carbon Dioxide 27 (21-32) mmol/L POC Total CO2 (24-31) mmol/L Anion Gap 6 (3-11) POC Anion Gap (16-25) mmol/L POC BUN (7-18) mg/dl BUN 10 (6-23) mg/dl Creatinine 0.54 L (0.6-1.4) mg/dl POC Creatinine (0.6-1.3) mg/dl Est Cr Clr Drug Dosing 139.4 ml/min Est GFR ( Amer) 129.5 ml/min Est GFR (Non-Af Amer) 111.7 ml/min BUN/Creatinine Ratio 18.5 (10-20) Glucose 158 H (70-99(Fasting)) mg/dl POC Glucose 130 H 176 H (70-99) mg/dl POC Glucose (other) (70-99) mg/dl Estimat Average Glucose mg/dl Hemoglobin A1c (4.5-5.6) % Lactate (0.4-2.0) mmol/L Calcium 8.6 (8.6-10.3) mg/dl POC Ioniz Calcium Alona (1.12-1.32) mmol/l Phosphorus 2.3 L D (2.5-4.9) mg/dl Magnesium 1.8 (1.7-2.4) mg/dl Total Bilirubin (0.2-1.0) mg/dl AST (13-39) U/L ALT (7-52) U/L Alkaline Phosphatase (34-104) U/L Troponin I High Sens (0-20) pg/ml Total Protein (6.0-8.3) gm/dl Albumin 3.2 L (3.4-5.0) gm/dl Globulin (2.5-4.0) gm/dl Albumin/Globulin Ratio (0.9-2) Procalcitonin (0-0.5) ng/ml Urine Color Urine Appearance (Clear) Urine pH (4.5-7.5) Ur Specific [place] (1.000-1.030) Urine Protein (Negative) Urine Glucose (UA) (Negative) Urine Ketones (Negative) Urine Blood (Negative) Urine Nitrite (Negative) Urine Bilirubin (Negative) Urine Urobilinogen (Negative) Ur Leukocyte Esterase (Negative) Urine WBC (Auto) (0-5) /hpf Urine RBC (Auto) (0-2) /hpf U Hyaline Cast (Auto) (0-2) /lpf U Epithel Cells (Auto) (0-2) /hpf Urine Bacteria (Auto) (None Seen) Calcium Oxalate Crystal (None Prsent) Nasal Screen MRSA (PCR) (Negative) Adenovirus (PCR) (NotDetected) B. pertussis DNA (PCR) (NotDetected) B.parapertussis DNA PCR (NotDetected) C. pneumoniae DNA (PCR) (NotDetected) Coronavirus OC43 (PCR) (NotDetected) Coronavirus HKU1 (PCR) (NotDetected) Coronavirus 229E (PCR) (NotDetected) SARS-CoV-2 (PCR) (NotDetected) Coronavirus NL63 (PCR) (NotDetected) Human Metapneumovir PCR (NotDetected) Influenza Type A (PCR) (NotDetected) Influenza Type B (PCR) (NotDetected) M. pneumoniae (PCR) (NotDetected) Parainfluenza 1 (PCR) (NotDetected) Parainfluenza 2 (PCR) (NotDetected) Parainfluenza 3 (PCR) (NotDetected) Parainfluenza 4 (PCR) (NotDetected) RSV (PCR) (NotDetected) Entero/Rhino (PCR) (NotDetected) 01/21/24 01/21/24 01/21/24 Range/Units 17:15 12:17 07:59 WBC (4.8-10.8) K/ul RBC (4.70-6.10) M/uL Hgb (14.0-18.0) g/dl POC Hgb (14.0-18.0) g/dl Hct (42.0-52.0) % POC Hct (42-52) % MCV (80.0-100.0) fL MCH (25.0-34.0) pg MCHC (32.0-36.0) g/dL RDW Std Deviation (36.4-46.3) fL RDW Coeff of Estela (11.5-14.5) % Plt Count (130-400) K/uL MPV (9.4-12.4) fL Immature Gran % (Auto) % Neut % (Auto) % Lymph % (Auto) % Dawes % (Auto) % Eos % (Auto) % Baso % (Auto) % Neut # (Auto) (1.40-6.50) K/uL Lymph # (Auto) (1.20-3.40) K/uL Dawes # (Auto) (0.11-0.59) K/uL Eos # (Auto) (0.00-0.50) K/uL Baso # (Auto) (0.00-0.20) K/uL Immature Gran # (Auto) (0.01-0.20) K/uL Absolute Nucleated RBC (0.00-0.12) K/uL Nucleated RBC % (auto) % Toxic Vacuolation Dohle Bodies Polychromasia Poikilocytosis Echinocytes Acanthocytes (Spur) VBG pH (7.36-7.41) VBG pCO2 (38-50) mmHg VBG pO2 mmHg VBG HCO3 mmol/L VBG O2 Saturation % VBG Base Excess mEq/L POC Sodium (135-144) mmol/L Sodium (136-145) mmol/L POC Potassium (3.3-5.0) mmol/L Potassium (3.5-5.1) mmol/L POC Chloride (101-112) mmol/L Chloride (98-107) mmol/L Carbon Dioxide (21-32) mmol/L POC Total CO2 (24-31) mmol/L Anion Gap (3-11) POC Anion Gap (16-25) mmol/L POC BUN (7-18) mg/dl BUN (6-23) mg/dl Creatinine (0.6-1.4) mg/dl POC Creatinine (0.6-1.3) mg/dl Est Cr Clr Drug Dosing ml/min Est GFR ( Amer) ml/min Est GFR (Non-Af Amer) ml/min BUN/Creatinine Ratio (10-20) Glucose (70-99(Fasting)) mg/dl POC Glucose 238 H 192 H 245 H (70-99) mg/dl POC Glucose (other) (70-99) mg/dl Estimat Average Glucose mg/dl Hemoglobin A1c (4.5-5.6) % Lactate (0.4-2.0) mmol/L Calcium (8.6-10.3) mg/dl POC Ioniz Calcium Alona (1.12-1.32) mmol/l Phosphorus (2.5-4.9) mg/dl Magnesium (1.7-2.4) mg/dl Total Bilirubin (0.2-1.0) mg/dl AST (13-39) U/L ALT (7-52) U/L Alkaline Phosphatase (34-104) U/L Troponin I High Sens (0-20) pg/ml Total Protein (6.0-8.3) gm/dl Albumin (3.4-5.0) gm/dl Globulin (2.5-4.0) gm/dl Albumin/Globulin Ratio (0.9-2) Procalcitonin (0-0.5) ng/ml Urine Color Urine Appearance (Clear) Urine pH (4.5-7.5) Ur Specific [place] (1.000-1.030) Urine Protein (Negative) Urine Glucose (UA) (Negative) Urine Ketones (Negative) Urine Blood (Negative) Urine Nitrite (Negative) Urine Bilirubin (Negative) Urine Urobilinogen (Negative) Ur Leukocyte Esterase (Negative) Urine WBC (Auto) (0-5) /hpf Urine RBC (Auto) (0-2) /hpf U Hyaline Cast (Auto) (0-2) /lpf U Epithel Cells (Auto) (0-2) /hpf Urine Bacteria (Auto) (None Seen) Calcium Oxalate Crystal (None Prsent) Nasal Screen MRSA (PCR) (Negative) Adenovirus (PCR) (NotDetected) B. pertussis DNA (PCR) (NotDetected) B.parapertussis DNA PCR (NotDetected) C. pneumoniae DNA (PCR) (NotDetected) Coronavirus OC43 (PCR) (NotDetected) Coronavirus HKU1 (PCR) (NotDetected) Coronavirus 229E (PCR) (NotDetected) SARS-CoV-2 (PCR) (NotDetected) Coronavirus NL63 (PCR) (NotDetected) Human Metapneumovir PCR (NotDetected) Influenza Type A (PCR) (NotDetected) Influenza Type B (PCR) (NotDetected) M. pneumoniae (PCR) (NotDetected) Parainfluenza 1 (PCR) (NotDetected) Parainfluenza 2 (PCR) (NotDetected) Parainfluenza 3 (PCR) (NotDetected) Parainfluenza 4 (PCR) (NotDetected) RSV (PCR) (NotDetected) Entero/Rhino (PCR) (NotDetected) 01/21/24 01/20/24 01/20/24 Range/Units 04:49 Unknown 23:14 WBC 11.52 H (4.8-10.8) K/ul RBC 4.11 L (4.70-6.10) M/uL Hgb 11.3 L D (14.0-18.0) g/dl POC Hgb (14.0-18.0) g/dl Hct 36.7 L (42.0-52.0) % POC Hct (42-52) % MCV 89.3 (80.0-100.0) fL MCH 27.5 (25.0-34.0) pg MCHC 30.8 L (32.0-36.0) g/dL RDW Std Deviation 53.7 H (36.4-46.3) fL RDW Coeff of Estela 16.6 H (11.5-14.5) % Plt Count 208 (130-400) K/uL MPV 9.8 (9.4-12.4) fL Immature Gran % (Auto) 0.4 % Neut % (Auto) 95.6 % Lymph % (Auto) 1.6 % Dawes % (Auto) 2.3 % Eos % (Auto) 0.0 % Baso % (Auto) 0.1 % Neut # (Auto) 11.00 H (1.40-6.50) K/uL Lymph # (Auto) 0.19 L (1.20-3.40) K/uL Dawes # (Auto) 0.27 (0.11-0.59) K/uL Eos # (Auto) 0.00 (0.00-0.50) K/uL Baso # (Auto) 0.01 (0.00-0.20) K/uL Immature Gran # (Auto) 0.05 (0.01-0.20) K/uL Absolute Nucleated RBC (0.00-0.12) K/uL Nucleated RBC % (auto) % Toxic Vacuolation Dohle Bodies 1+ Polychromasia Poikilocytosis Echinocytes 2+ Acanthocytes (Spur) VBG pH (7.36-7.41) VBG pCO2 (38-50) mmHg VBG pO2 mmHg VBG HCO3 mmol/L VBG O2 Saturation % VBG Base Excess mEq/L POC Sodium (135-144) mmol/L Sodium 136 (136-145) mmol/L POC Potassium (3.3-5.0) mmol/L Potassium 4.5 (3.5-5.1) mmol/L POC Chloride (101-112) mmol/L Chloride 106 (98-107) mmol/L Carbon Dioxide 22 (21-32) mmol/L POC Total CO2 (24-31) mmol/L Anion Gap 8 (3-11) POC Anion Gap (16-25) mmol/L POC BUN (7-18) mg/dl BUN 11 (6-23) mg/dl Creatinine 0.67 (0.6-1.4) mg/dl POC Creatinine (0.6-1.3) mg/dl Est Cr Clr Drug Dosing 112.1 ml/min Est GFR ( Amer) 118.5 ml/min Est GFR (Non-Af Amer) 102.3 ml/min BUN/Creatinine Ratio 16.4 (10-20) Glucose 323 H* (70-99(Fasting)) mg/dl POC Glucose (70-99) mg/dl POC Glucose (other) (70-99) mg/dl Estimat Average Glucose 151 mg/dl Hemoglobin A1c 6.9 H (4.5-5.6) % Lactate 5.0 H* (0.4-2.0) mmol/L Calcium 8.0 L (8.6-10.3) mg/dl POC Ioniz Calcium Alona (1.12-1.32) mmol/l Phosphorus 3.3 (2.5-4.9) mg/dl Magnesium 1.3 L (1.7-2.4) mg/dl Total Bilirubin (0.2-1.0) mg/dl AST (13-39) U/L ALT (7-52) U/L Alkaline Phosphatase (34-104) U/L Troponin I High Sens (0-20) pg/ml Total Protein (6.0-8.3) gm/dl Albumin 3.0 L (3.4-5.0) gm/dl Globulin (2.5-4.0) gm/dl Albumin/Globulin Ratio (0.9-2) Procalcitonin (0-0.5) ng/ml Urine Color Urine Appearance (Clear) Urine pH (4.5-7.5) Ur Specific [place] (1.000-1.030) Urine Protein (Negative) Urine Glucose (UA) (Negative) Urine Ketones (Negative) Urine Blood (Negative) Urine Nitrite (Negative) Urine Bilirubin (Negative) Urine Urobilinogen (Negative) Ur Leukocyte Esterase (Negative) Urine WBC (Auto) (0-5) /hpf Urine RBC (Auto) (0-2) /hpf U Hyaline Cast (Auto) (0-2) /lpf U Epithel Cells (Auto) (0-2) /hpf Urine Bacteria (Auto) (None Seen) Calcium Oxalate Crystal (None Prsent) Nasal Screen MRSA (PCR) (Negative) Adenovirus (PCR) Not Detected (NotDetected) B. pertussis DNA (PCR) Not Detected (NotDetected) B.parapertussis DNA PCR Not Detected (NotDetected) C. pneumoniae DNA (PCR) Not Detected (NotDetected) Coronavirus OC43 (PCR) Not Detected (NotDetected) Coronavirus HKU1 (PCR) Not Detected (NotDetected) Coronavirus 229E (PCR) Not Detected (NotDetected) SARS-CoV-2 (PCR) Not Detected (NotDetected) Coronavirus NL63 (PCR) Not Detected (NotDetected) Human Metapneumovir PCR Not Detected (NotDetected) Influenza Type A (PCR) Not Detected (NotDetected) Influenza Type B (PCR) Not Detected (NotDetected) M. pneumoniae (PCR) Not Detected (NotDetected) Parainfluenza 1 (PCR) Not Detected (NotDetected) Parainfluenza 2 (PCR) Not Detected (NotDetected) Parainfluenza 3 (PCR) Not Detected (NotDetected) Parainfluenza 4 (PCR) Not Detected (NotDetected) RSV (PCR) Not Detected (NotDetected) Entero/Rhino (PCR) Not Detected (NotDetected) 01/20/24 01/20/24 01/20/24 Range/Units 22:50 21:15 19:58 WBC (4.8-10.8) K/ul RBC (4.70-6.10) M/uL Hgb (14.0-18.0) g/dl POC Hgb (14.0-18.0) g/dl Hct (42.0-52.0) % POC Hct (42-52) % MCV (80.0-100.0) fL MCH (25.0-34.0) pg MCHC (32.0-36.0) g/dL RDW Std Deviation (36.4-46.3) fL RDW Coeff of Estela (11.5-14.5) % Plt Count (130-400) K/uL MPV (9.4-12.4) fL Immature Gran % (Auto) % Neut % (Auto) % Lymph % (Auto) % Dawes % (Auto) % Eos % (Auto) % Baso % (Auto) % Neut # (Auto) (1.40-6.50) K/uL Lymph # (Auto) (1.20-3.40) K/uL Dawes # (Auto) (0.11-0.59) K/uL Eos # (Auto) (0.00-0.50) K/uL Baso # (Auto) (0.00-0.20) K/uL Immature Gran # (Auto) (0.01-0.20) K/uL Absolute Nucleated RBC (0.00-0.12) K/uL Nucleated RBC % (auto) % Toxic Vacuolation Dohle Bodies Polychromasia Poikilocytosis Echinocytes Acanthocytes (Spur) VBG pH (7.36-7.41) VBG pCO2 (38-50) mmHg VBG pO2 mmHg VBG HCO3 mmol/L VBG O2 Saturation % VBG Base Excess mEq/L POC Sodium (135-144) mmol/L Sodium (136-145) mmol/L POC Potassium (3.3-5.0) mmol/L Potassium (3.5-5.1) mmol/L POC Chloride (101-112) mmol/L Chloride (98-107) mmol/L Carbon Dioxide (21-32) mmol/L POC Total CO2 (24-31) mmol/L Anion Gap (3-11) POC Anion Gap (16-25) mmol/L POC BUN (7-18) mg/dl BUN (6-23) mg/dl Creatinine (0.6-1.4) mg/dl POC Creatinine (0.6-1.3) mg/dl Est Cr Clr Drug Dosing ml/min Est GFR ( Amer) ml/min Est GFR (Non-Af Amer) ml/min BUN/Creatinine Ratio (10-20) Glucose (70-99(Fasting)) mg/dl POC Glucose (70-99) mg/dl POC Glucose (other) (70-99) mg/dl Estimat Average Glucose mg/dl Hemoglobin A1c (4.5-5.6) % Lactate 4.8 H* (0.4-2.0) mmol/L Calcium (8.6-10.3) mg/dl POC Ioniz Calcium Alona (1.12-1.32) mmol/l Phosphorus (2.5-4.9) mg/dl Magnesium (1.7-2.4) mg/dl Total Bilirubin (0.2-1.0) mg/dl AST (13-39) U/L ALT (7-52) U/L Alkaline Phosphatase (34-104) U/L Troponin I High Sens (0-20) pg/ml Total Protein (6.0-8.3) gm/dl Albumin (3.4-5.0) gm/dl Globulin (2.5-4.0) gm/dl Albumin/Globulin Ratio (0.9-2) Procalcitonin (0-0.5) ng/ml Urine Color Yellow Urine Appearance Cloudy A (Clear) Urine pH 5.5 (4.5-7.5) Ur Specific [place] 1.035 H (1.000-1.030) Urine Protein Trace H (Negative) Urine Glucose (UA) Negative (Negative) Urine Ketones Trace H (Negative) Urine Blood 3+ H (Negative) Urine Nitrite Negative (Negative) Urine Bilirubin Negative (Negative) Urine Urobilinogen Negative (Negative) Ur Leukocyte Esterase Negative (Negative) Urine WBC (Auto) 0-5 (0-5) /hpf Urine RBC (Auto) >20 H (0-2) /hpf U Hyaline Cast (Auto) 6-10 H (0-2) /lpf U Epithel Cells (Auto) 0-2 (0-2) /hpf Urine Bacteria (Auto) None Seen (None Seen) Calcium Oxalate Crystal Present A (None Prsent) Nasal Screen MRSA (PCR) Negative (Negative) Adenovirus (PCR) (NotDetected) B. pertussis DNA (PCR) (NotDetected) B.parapertussis DNA PCR (NotDetected) C. pneumoniae DNA (PCR) (NotDetected) Coronavirus OC43 (PCR) (NotDetected) Coronavirus HKU1 (PCR) (NotDetected) Coronavirus 229E (PCR) (NotDetected) SARS-CoV-2 (PCR) (NotDetected) Coronavirus NL63 (PCR) (NotDetected) Human Metapneumovir PCR (NotDetected) Influenza Type A (PCR) (NotDetected) Influenza Type B (PCR) (NotDetected) M. pneumoniae (PCR) (NotDetected) Parainfluenza 1 (PCR) (NotDetected) Parainfluenza 2 (PCR) (NotDetected) Parainfluenza 3 (PCR) (NotDetected) Parainfluenza 4 (PCR) (NotDetected) RSV (PCR) (NotDetected) Entero/Rhino (PCR) (NotDetected) 01/20/24 01/20/24 01/20/24 Range/Units 19:08 18:48 18:42 WBC 12.96 H (4.8-10.8) K/ul RBC 5.23 (4.70-6.10) M/uL Hgb 14.3 (14.0-18.0) g/dl POC Hgb 15.6 (14.0-18.0) g/dl Hct 46.9 (42.0-52.0) % POC Hct 46 (42-52) % MCV 89.7 (80.0-100.0) fL MCH 27.3 (25.0-34.0) pg MCHC 30.5 L (32.0-36.0) g/dL RDW Std Deviation 53.3 H (36.4-46.3) fL RDW Coeff of Estela 16.7 H (11.5-14.5) % Plt Count 271 (130-400) K/uL MPV 9.6 (9.4-12.4) fL Immature Gran % (Auto) 0.6 % Neut % (Auto) 86.1 % Lymph % (Auto) 7.3 % Dawes % (Auto) 5.4 % Eos % (Auto) 0.1 % Baso % (Auto) 0.5 % Neut # (Auto) 11.17 H (1.40-6.50) K/uL Lymph # (Auto) 0.94 L (1.20-3.40) K/uL Dawes # (Auto) 0.70 H (0.11-0.59) K/uL Eos # (Auto) 0.01 (0.00-0.50) K/uL Baso # (Auto) 0.06 (0.00-0.20) K/uL Immature Gran # (Auto) 0.08 (0.01-0.20) K/uL Absolute Nucleated RBC 0.02 (0.00-0.12) K/uL Nucleated RBC % (auto) 0.2 % Toxic Vacuolation Dohle Bodies Polychromasia 1+ Poikilocytosis Echinocytes 3+ Acanthocytes (Spur) 1+ VBG pH 7.30 L (7.36-7.41) VBG pCO2 54 H (38-50) mmHg VBG pO2 36 mmHg VBG HCO3 27 mmol/L VBG O2 Saturation < 60.0 % VBG Base Excess -0.7 mEq/L POC Sodium 137 (135-144) mmol/L Sodium 137 (136-145) mmol/L POC Potassium 4.3 (3.3-5.0) mmol/L Potassium 4.4 (3.5-5.1) mmol/L POC Chloride 100 L (101-112) mmol/L Chloride 101 (98-107) mmol/L Carbon Dioxide 24 (21-32) mmol/L POC Total CO2 27 (24-31) mmol/L Anion Gap 12 H (3-11) POC Anion Gap 16.0 (16-25) mmol/L POC BUN 12 (7-18) mg/dl BUN 13 (6-23) mg/dl Creatinine 0.80 (0.6-1.4) mg/dl POC Creatinine 0.8 (0.6-1.3) mg/dl Est Cr Clr Drug Dosing 93.8 ml/min Est GFR ( Amer) 110.2 ml/min Est GFR (Non-Af Amer) 95.1 ml/min BUN/Creatinine Ratio 16.3 (10-20) Glucose 177 H (70-99(Fasting)) mg/dl POC Glucose (70-99) mg/dl POC Glucose (other) 168 H (70-99) mg/dl Estimat Average Glucose mg/dl Hemoglobin A1c (4.5-5.6) % Lactate (0.4-2.0) mmol/L Calcium 9.4 (8.6-10.3) mg/dl POC Ioniz Calcium Alona 1.17 (1.12-1.32) mmol/l Phosphorus (2.5-4.9) mg/dl Magnesium (1.7-2.4) mg/dl Total Bilirubin 0.8 (0.2-1.0) mg/dl AST 12 L (13-39) U/L ALT 12 (7-52) U/L Alkaline Phosphatase 67 (34-104) U/L Troponin I High Sens 4.8 (0-20) pg/ml Total Protein 6.0 (6.0-8.3) gm/dl Albumin 3.7 (3.4-5.0) gm/dl Globulin 2.3 L (2.5-4.0) gm/dl Albumin/Globulin Ratio 1.6 (0.9-2) Procalcitonin 0.24 (0-0.5) ng/ml Urine Color Urine Appearance (Clear) Urine pH (4.5-7.5) Ur Specific [place] (1.000-1.030) Urine Protein (Negative) Urine Glucose (UA) (Negative) Urine Ketones (Negative) Urine Blood (Negative) Urine Nitrite (Negative) Urine Bilirubin (Negative) Urine Urobilinogen (Negative) Ur Leukocyte Esterase (Negative) Urine WBC (Auto) (0-5) /hpf Urine RBC (Auto) (0-2) /hpf U Hyaline Cast (Auto) (0-2) /lpf U Epithel Cells (Auto) (0-2) /hpf Urine Bacteria (Auto) (None Seen) Calcium Oxalate Crystal (None Prsent) Nasal Screen MRSA (PCR) (Negative) Adenovirus (PCR) (NotDetected) B. pertussis DNA (PCR) (NotDetected) B.parapertussis DNA PCR (NotDetected) C. pneumoniae DNA (PCR) (NotDetected) Coronavirus OC43 (PCR) (NotDetected) Coronavirus HKU1 (PCR) (NotDetected) Coronavirus 229E (PCR) (NotDetected) SARS-CoV-2 (PCR) (NotDetected) Coronavirus NL63 (PCR) (NotDetected) Human Metapneumovir PCR (NotDetected) Influenza Type A (PCR) (NotDetected) Influenza Type B (PCR) (NotDetected) M. pneumoniae (PCR) (NotDetected) Parainfluenza 1 (PCR) (NotDetected) Parainfluenza 2 (PCR) (NotDetected) Parainfluenza 3 (PCR) (NotDetected) Parainfluenza 4 (PCR) (NotDetected) RSV (PCR) (NotDetected) Entero/Rhino (PCR) (NotDetected) Diagnostic Findings Chest X-Ray 01/20/24 18:40 XR chest 1V portable HISTORY: 63 years-old Male Dyspnea acute shortness of breath COMPARISON: CTA chest of same day TECHNIQUE: AP view of the chest FINDINGS: Cardiomediastinal and hilar silhouettes are unchanged. Emphysema with chronic interstitial coarsening. No pneumothorax or overt pulmonary edema. Trace left pleural effusion. Patchy airspace opacities are noted within the left mid lung and left lung base. Left subclavian [id number] catheter. Bones appear grossly intact. IMPRESSION: 1. Emphysema with left basilar pneumonia. Follow-up imaging to document resolution recommended. 2. Trace left pleural effusion. ACT 112: Negative or not required by law. The above report was generated using voice recognition software. It may contain grammatical, syntax or spelling errors. Electronically signed by: Sudhakar Biggs M.D. 01/21/2024 6:49 AM Chest CTA 01/20/24 18:43 Exam(s): CTA CHEST IV Amt: 118 cc opti 320 EXAM: CT Angiography Chest With Intravenous Contrast CLINICAL HISTORY: Reason for exam: PE. TECHNIQUE: Axial computed tomographic angiography images of the chest with intravenous contrast. CTDI is 14.25 mGy and DLP is 633.97 mGy-cm. Automated exposure control was utilized for the study. A dose lowering technique was utilized adhering to the principles of ALARA. MIP reconstructed images were created and reviewed. COMPARISON: 07/26/2023 FINDINGS: Pulmonary arteries: Unremarkable. No pulmonary embolism. Aorta: No acute findings. No thoracic aortic aneurysm. Lungs: New left lower lobe and lingular infiltrates. Diffuse changes COPD. No mass. Pleural space: Small left pleural effusion. No pneumothorax. Heart: Unremarkable. No cardiomegaly. No significant pericardial effusion. No evidence of RV dysfunction. Bones/joints: No acute fracture. No dislocation. Soft tissues: Unremarkable. Lymph nodes: Unremarkable. No enlarged lymph nodes. IMPRESSION: 1. Left lingular and lower lobe pneumonia 2. Small left pleural effusion likely reactive in nature. No pulmonary embolus Electronically signed by: Victorino Landrum MD 01/20/24 21:32 PM PG Care Time/CCT Total # of Minutes Spent Total Time Spent with Patient: Total time spent is greater than 50% in coordination of care (as documented) at patient's floor/unit and/or counseling patient: I spent 80 minutes overall addressing this case: 10 min in medical data review/discussion with referring provider(s) and/or preparation for the visit 15min in direct interaction with the patient/exam 25 min in Advance Care Planning/Goals of Care discussions as detailed above in note (must be >16min) 15 min in subsequent review and synthesis of assessment and plan 15 min communicating with other providers regarding the patient's case: Advanced Care Planning 31424 Advanced Care Planning 30 [place] [address] IN/OBS CONSULT LVL 5,80M Patient Type New History Comprehensive Exam Comprehensive Medical Decision Making High Complexity Diagnoses Dyspnea and respiratory abnormalities R06.00; R06.89 Weakness generalized R53.1 Sleep disorder breathing G47.30 Poor sleep Z72.820 Advanced care planning/counseling discussion Z71.89 Pulmonary cachexia due to COPD R64; J44.9 Palliative care by specialist Z51.5 COPD (chronic obstructive pulmonary disease) J44.9 Additional Codes Advanced Care Planning - 31110 Advanced Care Planning 30 Min: 59017 Advanced Care Planning 30 Min ([id number])
[2024-01-23 06:25] LABS: Albumin Level 3.1 gm/dl (3.4-5.0); BUN Creatinine Ratio 22.4 (10-20); Calcium 8.6 mg/dl (8.6-10.3); Creatinine Clr Calc Pharmacy 129.1 ml/min; Est GFR (African American) 125.8 ml/min; Est GFR (Non-African American) 108.5 ml/min; Magnesium 1.9 mg/dl (1.7-2.4); Phosphorus 2.4 mg/dl (2.5-4.9); Potassium 4.1 mmol/L (3.5-5.1)
[2024-01-23 06:31] LABS: Hematocrit (blood only) 36.3 % (42.0-52.0); Hemoglobin 11.5 g/dl (14.0-18.0); Mean Corpuscular Hemoglobin 27.4 pg (25.0-34.0); Mean Corpuscular Hgb Conc 31.7 g/dL (32.0-36.0); Mean Corpuscular Volume 86.6 fL (80.0-100.0); Mean Platelet Volume 9.5 fL (9.4-12.4); Platelet Count 249 K/uL (130-400); RDW Coefficient of Variation 17.3 % (11.5-14.5); RDW Standard Deviation 53.8 fL (36.4-46.3); Red Blood Count 4.19 M/uL (4.70-6.10); White Blood Count 9.91 K/ul (4.8-10.8)
[2024-01-23 07:00] LABS: Acanthocytes 1+; Basophils # (auto) 0.01 K/uL (0.00-0.20); Basophils % (auto) 0.1 %; Echinocytes 1+; Immature Granulocytes # (auto) 0.09 K/uL (0.01-0.20); Immature Granulocytes % (auto) 0.9 %; Lymphocytes # (auto) 0.21 K/uL (1.20-3.40); Lymphocytes % (auto) 2.1 %; Monocytes # (auto) 0.34 K/uL (0.11-0.59); Monocytes % (auto) 3.4 %; Neutrophils # (auto) 9.26 K/uL (1.40-6.50); Neutrophils % (auto) 93.5 %; Polychromasia 1+
--- NOTE | 2024-01-23 11:28 | Hospitalist Progress Note ---
Date of Service January 23, 2024 Assessment & Plan (1) LLL pneumonia: (2) Acute hypoxemic respiratory failure: (3) COPD with acute exacerbation: (4) Pulmonary cachexia due to COPD: (5) End stage COPD: (6) History of pulmonary embolus (PE): (7) Acute and chronic respiratory failure: (8) GERD (gastroesophageal reflux disease): (9) Presence of drug coated stent in left circumflex coronary artery: (10) Dyslipidemia, goal LDL below 70: (11) Type 2 diabetes mellitus: (12) CAD (coronary artery disease): Plan Sepsis /severe sepsis with septic shock Secondary to lobar pneumonia, on a background of end-stage COPD with pulmonary cachexia Sepsis has resolved. Chest x-ray showed left lower lobe and left lingular pneumonia In the ED, DuoNeb, Solu-Medrol 125 mg IV, Zosyn 4.5 g IV, and 2 L normal saline bolus Solu-Medrol 40 mg IV every 8 hours Duonebs every 4 hours while awake and every 2 hours when necessary. Guaifenesin extended release 1200 mg p.o. twice daily Zosyn 4.5 g IV every 8 hours Azithromycin 500 mg IV daily Blood pressure is still low Continue usual inhalers: Breo elliptica, Incruse Ellipta Continue Daliresp MRSA swab was negative Nasal cannula oxygen with titration to maintain pulse ox 92-94% IV morphine 1 mg every 4 hours as needed for air hunger and anxiety End-stage COPD: Patient had a visit to his anchor tack puller end of December 2023. According to the anchor tack puller, patient is currently on maximal therapy with high-dose ICS/LABA/LAMA therapy, Roflumilast 500 mcg daily, azithromycin every Thursday and Thursday and also daily prednisone 10 mg daily. Patient is also followed by palliative and is currently on p.o. oxycodone for anxiety and air hunger. CAD/hypertension/history of coronary left circumflex artery stent/hyperlipidemia- Continue aspirin 81 mg daily, atorvastatin 80 mg daily, metoprolol succinate 50 mg daily Diabetes mellitus- Hold metformin Placed on Accu-Cheks with NovoLog SSI Patient has been followed by palliative service in the past Will reconsult palliative. History of stage IV lung cancer: Diagnosed in 2011, status post radiation therapy and chemotherapy Currently in remission History of prostate cancer: Diagnosed in 2021 Admission and Anticipated Discharge Date Admission Date: January 20, 2024 Subjective Patient seen and examined in the, still somewhat short of breath Review of Systems Review of Systems: All systems reviewed are negative, apart from the ones contained in the history. Physical Exam Physical Exam: The patient is awake, alert and oriented 3, well developed and well nourished, normocephalic and atraumatic, lying in bed and in no acute distress. HEENT--PERRL, EOMI, mucous membranes and oropharynx mildly dry Neck--supple. No JVD. No bruits. Thyroid normal, trachea midline, no adenopathy. Heart--normal S1 and S2. No murmurs, rubs or gallops. Lungs--reduced air entry on auscultation, bibasilar wheeze Abdomen--normal bowel sounds and soft. Extremities--no cyanosis or clubbing. No edema. Dermatologic--normal skin turgor, normal color, no abnormal lymph nodes, no rash. Neurologic--cranial nerves II through XII grossly intact. Rheumatologic--normal range of motion. Psychiatric--normal affect. Results & Data Results & Data Vital Signs (Past 12 Hours) Vital Signs Temp Pulse Pulse Resp BP BP Pulse Ox 01/23/24 10:23 95 H 16 94 01/23/24 08:00 97.5 F L 90 18 118/79 95 01/23/24 07:30 85 01/23/24 07:30 01/23/24 06:50 90 16 96 01/23/24 02:59 97.5 F L 90 20 133/83 95 O2 Del Method 01/23/24 10:23 Room Air 01/23/24 08:00 Room Air 01/23/24 07:30 01/23/24 07:30 Room Air 01/23/24 06:50 Room Air 01/23/24 02:59 Room Air PG Care Time/CCT Total # of Minutes Spent Total Time Spent with Patient: Total time spent is greater than 50% in coordination of care (as documented) at patient's floor/unit and/or counseling patient: Coding Level of Care Code 10145 SUB INP/OBS CARE 2/35MIN Diagnoses LLL pneumonia J18.9 Pneumonia type: due to unspecified organism Acute hypoxemic respiratory failure J96.01 COPD with acute exacerbation J44.1 Pulmonary cachexia due to COPD R64; J44.9 End stage COPD J44.9 History of pulmonary embolus (PE) Z86.711 Acute and chronic respiratory failure J96.20 Gastroesophageal reflux disease, unspecified whether esophagitis present K21.9 Esophagitis presence: esophagitis presence not specified 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
[2024-01-23] MEDS: HEPARIN 100 UNIT/ML 5ML FLUSH FLUSH PRN (17:02)
[2024-01-24 07:10] LABS: Creatinine Clr Calc Pharmacy 133.9 ml/min; Est GFR (African American) 127.6 ml/min; Est GFR (Non-African American) 110.1 ml/min
--- NOTE | 2024-01-24 10:41 | Hospitalist Progress Note ---
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 Chest x-ray showed left lower lobe and left lingular pneumonia In the ED, DuoNeb, Solu-Medrol 125 mg IV, Zosyn 4.5 g IV, and 2 L normal saline bolus Solu-Medrol 40 mg IV every 8 hours Duonebs every 4 hours while awake and every 2 hours when necessary. Guaifenesin extended release 1200 mg p.o. twice daily Zosyn 4.5 g IV every 8 hours Azithromycin 500 mg IV daily Continue usual inhalers: Breo elliptica, Incruse Ellipta Continue Daliresp MRSA swab was negative Nasal cannula oxygen with titration to maintain pulse ox 92-94% IV morphine 1 mg every 4 hours as needed for air hunger and anxiety End-stage COPD: Patient had a visit to his manager land end of December 2023. According to the manager land, patient is currently on maximal therapy with high-dose ICS/LABA/LAMA therapy, Roflumilast 500 mcg daily, azithromycin every Thursday and Thursday and also daily prednisone 10 mg daily. Patient is also followed by palliative and is currently on p.o. oxycodone for anxiety and air hunger. Patient still seems to be in denial regarding his end-stage COPD status, he feels he is able to get better sometime CAD/hypertension/history of coronary left circumflex artery stent/hyperlipidemia- Continue aspirin 81 mg daily, atorvastatin 80 mg daily, metoprolol succinate 50 mg daily Diabetes mellitus- Hold metformin Placed on Accu-Cheks with NovoLog SSI Patient has been followed by palliative service in the past Will reconsult palliative. History of stage IV lung cancer: Diagnosed in 2011, status post radiation therapy and chemotherapy Currently in remission History of prostate cancer: Diagnosed in 2021 Admission and Anticipated Discharge Date Admission Date: January 20, 2024 Subjective Patient seen and examined in the, still somewhat short of breath, he said they had to bring his commode close to him because any small efforts lives seem short of breath. Review of Systems Review of Systems: All systems reviewed are negative, apart from the ones contained in the history. Physical Exam Physical Exam: The patient is awake, alert and oriented 3, well developed and well nourished, normocephalic and atraumatic, lying in bed and in no acute distress. HEENT--PERRL, EOMI, mucous membranes and oropharynx mildly dry Neck--supple. No JVD. No bruits. Thyroid normal, trachea midline, no adenopathy. Heart--normal S1 and S2. No murmurs, rubs or gallops. Lungs--reduced air entry on auscultation, bibasilar wheeze Abdomen--normal bowel sounds and soft. Extremities--no cyanosis or clubbing. No edema. Dermatologic--normal skin turgor, normal color, no abnormal lymph nodes, no rash. Neurologic--cranial nerves II through XII grossly intact. Rheumatologic--normal range of motion. Psychiatric--normal affect. Results & Data Results & Data Vital Signs (Past 12 Hours) Vital Signs Temp Pulse Pulse Resp BP Pulse Ox O2 Del Method 01/24/24 10:11 110 H 16 95 Room Air 01/24/24 09:00 90 01/24/24 09:00 Room Air 01/24/24 07:56 98.4 F 95 H 20 125/84 92 Room Air 01/24/24 06:51 91 H 16 96 Room Air 01/24/24 03:13 97.3 F L 89 18 129/88 98 Room Air 01/23/24 22:48 97.5 F L 91 H 18 116/76 91 Room Air PG Care Time/CCT Total # of Minutes Spent Total Time Spent with Patient: Total time spent is greater than 50% in coordination of care (as documented) at patient's floor/unit and/or counseling patient: Coding Level of Care Code 65425 SUB INP/OBS CARE 2/35MIN Diagnoses LLL pneumonia J18.9 Pneumonia type: due to unspecified organism Acute hypoxemic respiratory failure J96.01 COPD with acute exacerbation J44.1 Pulmonary cachexia due to COPD R64; J44.9 End stage COPD J44.9 History of pulmonary embolus (PE) Z86.711 Acute and chronic respiratory failure J96.20 Gastroesophageal reflux disease, unspecified whether esophagitis present K21.9 Esophagitis presence: esophagitis presence not specified 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
[2024-01-25] MEDS: hydrOXYzine HCl 25 MG TAB PO PRN (00:32)
--- NOTE | 2024-01-25 11:26 | Hospitalist Progress Note ---
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 Chest x-ray showed left lower lobe and left lingular pneumonia In the ED, DuoNeb, Solu-Medrol 125 mg IV, Zosyn 4.5 g IV, and 2 L normal saline bolus Solu-Medrol 40 mg IV every 8 hours Duonebs every 4 hours while awake and every 2 hours when necessary. Guaifenesin extended release 1200 mg p.o. twice daily Zosyn 4.5 g IV every 8 hours Azithromycin 500 mg IV daily Continue usual inhalers: Breo elliptica, Incruse Ellipta Continue Daliresp MRSA swab was negative Nasal cannula oxygen with titration to maintain pulse ox 92-94% IV morphine 1 mg every 4 hours as needed for air hunger and anxiety End-stage COPD: Imaging showed evidence of advanced emphysema Patient had a visit to his farrowing worker end of December 2023. According to the farrowing worker, patient is currently on maximal therapy with high-dose ICS/LABA/LAMA therapy, Roflumilast 500 mcg daily, azithromycin every Thursday and Thursday and also daily prednisone 10 mg daily. Patient is also followed by palliative and is currently on p.o. oxycodone for anxiety and air hunger. Patient still seems to be in denial regarding his end-stage COPD status, he feels he is able to get better sometime CAD/hypertension/history of coronary left circumflex artery stent/hyperlipidemia- Continue aspirin 81 mg daily, atorvastatin 80 mg daily, metoprolol succinate 50 mg daily Diabetes mellitus- Hold metformin Placed on Accu-Cheks with NovoLog SSI Patient has been followed by palliative service in the past Will reconsult palliative. History of stage IV lung cancer: Diagnosed in 2011, status post radiation therapy and chemotherapy Currently in remission PET Scan done December 2022 showed 3 subcentimeter nodules to small for PET characterization. 6-month follow-up recommended. No evidence of hypermetabolic lymphadenopathy. History of prostate cancer: Diagnosed in 2021 Admission and Anticipated Discharge Date Admission Date: January 20, 2024 Subjective Patient seen and examined in the, says no improvement in his shortness of breath, still gets very short of breath with minimal exertion. He claims at at baseline he was able to do most of but now he has gotten more short of breath. Review of Systems Review of Systems: All systems reviewed are negative, apart from the ones contained in the history. Physical Exam Physical Exam: The patient is awake, alert and oriented 3, well developed and well nourished, normocephalic and atraumatic, lying in bed and in no acute distress. HEENT--PERRL, EOMI, mucous membranes and oropharynx mildly dry Neck--supple. No JVD. No bruits. Thyroid normal, trachea midline, no adenopathy. Heart--normal S1 and S2. No murmurs, rubs or gallops. Lungs--reduced air entry on auscultation, bibasilar wheeze Abdomen--normal bowel sounds and soft. Extremities--no cyanosis or clubbing. No edema. Dermatologic--normal skin turgor, normal color, no abnormal lymph nodes, no rash. Neurologic--cranial nerves II through XII grossly intact. Rheumatologic--normal range of motion. Psychiatric--normal affect. Results & Data Results & Data Vital Signs (Past 12 Hours) Vital Signs Temp Pulse Pulse Resp BP Pulse Ox O2 Del Method 01/25/24 09:40 93 H 01/25/24 07:53 97.9 F 89 18 114/71 90 Room Air 01/25/24 02:40 97.9 F 95 H 18 130/84 95 Room Air 01/24/24 23:45 106 H PG Care Time/CCT Total # of Minutes Spent Total Time Spent with Patient: Total time spent is greater than 50% in coordination of care (as documented) at patient's floor/unit and/or counseling patient: Coding Level of Care Code 20329 SUB INP/OBS CARE 2/35MIN Diagnoses LLL pneumonia J18.9 Pneumonia type: due to unspecified organism Acute hypoxemic respiratory failure J96.01 COPD with acute exacerbation J44.1 Pulmonary cachexia due to COPD R64; J44.9 End stage COPD J44.9 History of pulmonary embolus (PE) Z86.711 Acute and chronic respiratory failure J96.20 Gastroesophageal reflux disease, unspecified whether esophagitis present K21.9 Esophagitis presence: esophagitis presence not specified 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
--- NOTE | 2024-01-25 20:13 | Palliative Care Progress Note ---
Date of Service January 25, 2024 Assessment & Plan (1) Dyspnea and respiratory abnormalities: Plan: Isak is not having relief with trial of Oxy IR 5 mg 3 times daily and Oxy IR 7.5 mg every 4 hours as needed. We will uptitrate as follows: Oxy IR 10 mg p.o. 3 times daily, hold for somnolence or respiratory rate less than 14/min Oxy IR 10 mg p.o. every 4 hours as needed, hold for somnolence or respiratory rate less than 14/min (2) Pulmonary cachexia due to COPD: (3) Weakness generalized: (4) Poor sleep: (5) Advanced care planning/counseling discussion: Plan: I had a [id number] advance care planning discussion with Isak and his parents at the bedside for approximately 25 minutes. We discussed his frustrations of not feeling substantially better despite 6 days of IV antibiotics and steroids. We discussed the nature of advanced COPD as it reaches very end stages. We discussed that as the disease progresses towards its end stages, there may not be substantial relief obtained by conventional therapies for prior exacerbations including steroids and antibiotics. We revisited the option of going home with hospice. His parents had several questions about what hospice services entailed, We discussed the goals of hospice as a patient service and the goals of care; we discussed EOL trajectories and transitions maeve the emotional impact of realizing mortality as a concrete reality from prior abstract considerations. Pt was reassured that no matter where they are along this trajectory, they are not alone - their medical team will remain by their side through their journey. Discussed the pros/cons of accepting help when especially weakened and distressed by pain-which would also help provide relief/decrease caregiver burden/strain. Isak remains reluctant to consider discharge plan home with hospice. He continues to hold onto a whole that with another few days in the hospital we will substantially feel better and can return home. He repeatedly references his young puppy who is presently 4 months old and under the care of his daughter while he is here in the hospital. He is very sad as he speaks about the potential of something happening to him where he would not be around to care for his dog for more years. (6) LLL pneumonia: (7) Palliative care by specialist: Plan: Met with pt/family. Provided overview of Palliative Medicine, a subspecialty that provides specialized medical care for people living with a serious illness by offering a focus on quality of life. Palliative Medicine is often conflated with hospice: I advised patient/family that Palliative and hospice can be partners but we are not the same. It is important to understand the difference so that we may be informed, and not afraid. Palliative Medicine works to improve QOL through reduction of symptom burden/more control over their illness, for both the patient and family. Palliative medicine clinicians are board certified, specially-trained and another member of the patient's medical care team. We often provide an extra layer of support because our care is based on the needs of the patient, not the prognosis; as such, it's appropriate at any age/advancing stage of a serious illness and can be provided along with curative treatment. Palliative Medicine clinicians are also trained in advanced communication methodologies, to facilitate complex discussions about advanced illness planning, which are needed to help assure that the treatment choices match the patient's goals, aka delivering Goal Concordant care. Finally, we discussed that hospice is a visiting nurse service that focuses on care delivered at the very end of life for patients with terminal illness, with life expectancy less than 6 month. (8) End stage COPD: Plan * Oxycodone scheduled and as needed dosing increased to 10 mg, orders written. Hold parameters of hold for somnolence or respiratory rate less than 14/min have been written. * Extensive advance care planning discussion held with patient and his parents at the bedside. Hospice was again discussed. He continues to decline this option and remains resistant as he struggles to accept that his lung disease will not improve. We will continue to carry on these discussions. * Isak will return to see me in outpatient palliative medicine within 2 weeks of hospital discharge, we will schedule this appointment once a discharge date is determined. * I discussed with Isak the option of a discharge from the hospital to rehab to see if he can improve his conditioning and strength before returning home. He was quite resistant to this option although his parents did try to encourage him to be more open minded about it. He reiterates that he would rather go home and be in his own home but he would be willing to attend physical therapy as an outpatient. Thank you for allowing us to participate in the ongoing care of this patient. Please don't hesitate to call or page with any additional concerns. Dr. Leonarda Fernando DNP Director, Palliative Care Admission and Anticipated Discharge Date Admission Date: January 20, 2024 Rosales Parisi is seen today at bedside, his mother and stepfather are also present. He reports that overall he does not feel any different than when he initially came in. He is still having dyspnea with any minimal exertion. The doses of oxycodone have not helped as much as he had hoped but he feels they do a little bit more than the initial doses of morphine. He feels that perhaps a dose titration is needed. He is tired and feeling down. He is very despondent that he has not had a substantial improvement in spite of IV antibiotics and steroids. His appetite is stable. His energy level is low. His mood is depressed. He denies nausea vomiting. He has not had significant chest pain since admission. Review of Systems Review of Systems: All systems reviewed & are unremarkable except as noted in Subjective Physical Exam Constitutional: + ill appearing, + thin, + frail appeari ng and + underweight ENMT: MM dry, dentition fair Neck: trachea midline, no thyromegaly Respiratory: inc resp effort with use of accessory muscles, +conversational dyspnea severely diminished breath sounds increased exp phase, faint wheezing + Intermittent cough Cardiovascular: S1S2, no gross JVD Gastrointestinal (Abdomen): soft, NTP, BS+ Musculoskeletal: WILKES, no crepitus Skin: multiple tears/small abrasions c/w puppy induced injury Neurologic: AAOx3 Psychiatric: Mood is subdued, somewhat despondent. Slightly anxious when he speaks of his dyspnea which has not improved despite the addition of IV antibiotics and steroids. He is intermittently tearful. Results & Data Vital Signs (Past 12 Hours) Vital Signs Temp Pulse Pulse Resp BP Pulse Ox O2 Del Method 01/25/24 19:50 97 H 18 93 Room Air 01/25/24 19:35 36.5 C 99 H 18 106/70 93 Room Air 01/25/24 17:13 97/61 L 01/25/24 16:52 91 H 16 83/53 L 97 Room Air 01/25/24 15:34 36.5 C 77 18 102/64 90 Room Air 01/25/24 15:06 60 01/25/24 14:42 109 H 17 96 Room Air 01/25/24 11:55 36.6 C 87 18 107/71 90 Room Air 01/25/24 09:40 93 H Laboratory Results Abnormal lab results 01/24/24 01/25/24 01/25/24 Range/Units 20:23 07:22 11:30 POC Glucose 203 H 162 H 114 H (70-99) mg/dl 01/25/24 Range/Units 16:23 POC Glucose 155 H (70-99) mg/dl Diagnostic Findings Chest X-Ray 01/20/24 18:40 XR chest 1V portable HISTORY: 63 years-old Male Dyspnea acute shortness of breath COMPARISON: CTA chest of same day TECHNIQUE: AP view of the chest FINDINGS: Cardiomediastinal and hilar silhouettes are unchanged. Emphysema with chronic interstitial coarsening. No pneumothorax or overt pulmonary edema. Trace left pleural effusion. Patchy airspace opacities are noted within the left mid lung and left lung base. Left subclavian [id number] catheter. Bones appear grossly intact. IMPRESSION: 1. Emphysema with left basilar pneumonia. Follow-up imaging to document resolution recommended. 2. Trace left pleural effusion. ACT 112: Negative or not required by law. The above report was generated using voice recognition software. It may contain grammatical, syntax or spelling errors. Electronically signed by: Sudhakar Biggs M.D. 01/21/2024 6:49 AM Chest CTA 01/20/24 18:43 Exam(s): CTA CHEST IV Amt: 118 cc opti 320 EXAM: CT Angiography Chest With Intravenous Contrast CLINICAL HISTORY: Reason for exam: PE. TECHNIQUE: Axial computed tomographic angiography images of the chest with intravenous contrast. CTDI is 14.25 mGy and DLP is 633.97 mGy-cm. Automated exposure control was utilized for the study. A dose lowering technique was utilized adhering to the principles of ALARA. MIP reconstructed images were created and reviewed. COMPARISON: 07/26/2023 FINDINGS: Pulmonary arteries: Unremarkable. No pulmonary embolism. Aorta: No acute findings. No thoracic aortic aneurysm. Lungs: New left lower lobe and lingular infiltrates. Diffuse changes COPD. No mass. Pleural space: Small left pleural effusion. No pneumothorax. Heart: Unremarkable. No cardiomegaly. No significant pericardial effusion. No evidence of RV dysfunction. Bones/joints: No acute fracture. No dislocation. Soft tissues: Unremarkable. Lymph nodes: Unremarkable. No enlarged lymph nodes. IMPRESSION: 1. Left lingular and lower lobe pneumonia 2. Small left pleural effusion likely reactive in nature. No pulmonary embolus Electronically signed by: Victorino Landrum MD 01/20/24 21:32 PM PG Care Time/CCT Total # of Minutes Spent Total Time Spent with Patient: Total time spent is greater than 50% in coordination of care (as documented) at patient's floor/unit and/or counseling patient: I spent 75 minutes overall addressing this case: 10 min in medical data review/discussion with referring provider(s) and/or preparation for the visit 50 min in direct interaction with the patient/exam 25 min in Advance Care Planning/Goals of Care discussions as detailed above in note (must be >16min) 10 min in subsequent review and synthesis of assessment and plan 15 min communicating with other providers regarding the patient's case: nursing, primary team Advanced Care Planning 45195 Advanced Care Planning 30 Min [place] [address] SUB INP/OBS CARE 3/50MIN Patient Type Established History Comprehensive Exam Comprehensive Medical Decision Making High Complexity Diagnoses Dyspnea and respiratory abnormalities R06.00; R06.89 Pulmonary cachexia due to COPD R64; J44.9 Weakness generalized R53.1 Poor sleep Z72.820 Advanced care planning/counseling discussion Z71.89 LLL pneumonia J18.9 Pneumonia type: due to unspecified organism Palliative care by specialist Z51.5 End stage COPD J44.9 Additional Codes Advanced Care Planning - 33459 Advanced Care Planning 30 Min: [id number] Advanced Care Planning 30 Min ([id number]) (6) LLL pneumonia Pneumonia type: due to unspecified organism Qualified Code(s): J18.9 - Pneumonia, unspecified organism
[2024-01-25] MEDS: oxyCODONE HCL IR 5 MG TAB (IMMEDIATE RELEASE) PO SCH (20:33)
[2024-01-25] MEDS: oxyCODONE HCL IR 5 MG TAB (IMMEDIATE RELEASE) PO PRN (23:39)
--- NOTE | 2024-01-26 12:02 | Hospitalist Progress Note ---
Date of Service January 26, 2024 Assessment & Plan (1) LLL pneumonia: (2) Acute hypoxemic respiratory failure: (3) COPD with acute exacerbation: (4) Pulmonary cachexia due to COPD: (5) End stage COPD: (6) History of pulmonary embolus (PE): (7) Acute and chronic respiratory failure: (8) GERD (gastroesophageal reflux disease): (9) Presence of drug coated stent in left circumflex coronary artery: (10) Dyslipidemia, goal LDL below 70: (11) Type 2 diabetes mellitus: (12) CAD (coronary artery disease): Plan Sepsis /severe sepsis with septic shock Secondary to lobar pneumonia, on a background of end-stage COPD with pulmonary cachexia Sepsis has resolved. Chest x-ray showed left lower lobe and left lingular pneumonia In the ED, DuoNeb, Solu-Medrol 125 mg IV, Zosyn 4.5 g IV, and 2 L normal saline bolus Solu-Medrol 40 mg IV every 8 hours Duonebs every 4 hours while awake and every 2 hours when necessary. Guaifenesin extended release 1200 mg p.o. twice daily Zosyn 4.5 g IV every 8 hours Azithromycin 500 mg IV daily Continue usual inhalers: Breo elliptica, Incruse Ellipta Continue Daliresp MRSA swab was negative Nasal cannula oxygen with titration to maintain pulse ox 92-94% Oxycodone increased to 10 mg as needed for air hunger and anxiety End-stage COPD: Imaging showed evidence of advanced emphysema Patient had a visit to his cash processing specialist end of December 2023. According to the cash processing specialist, patient is currently on maximal therapy with high-dose ICS/LABA/LAMA therapy, Roflumilast 500 mcg daily, azithromycin every Thursday and Thursday and also daily prednisone 10 mg daily. Patient is also followed by palliative and is currently on p.o. oxycodone for anxiety and air hunger. Patient still seems to be in denial regarding his end-stage COPD status, he feels he is able to get better sometime CAD/hypertension/history of coronary left circumflex artery stent/hyperlipidemia- Continue aspirin 81 mg daily, atorvastatin 80 mg daily, metoprolol succinate 50 mg daily Diabetes mellitus- Hold metformin Placed on Accu-Cheks with NovoLog SSI Patient has been followed by palliative service in the past Will reconsult palliative. History of stage IV lung cancer: Diagnosed in 2011, status post radiation therapy and chemotherapy Currently in remission PET Scan done December 2022 showed 3 subcentimeter nodules to small for PET characterization. 6-month follow-up recommended. No evidence of hypermetabolic lymphadenopathy. History of prostate cancer: Diagnosed in 2021 Palliative has been in discussion with patient regarding hospice however patient does not want to entertain the idea. Despite several indications that he is unlikely to improve. He wants to stay 1 more day in the hospital to see if he is going to improve otherwise he is willing to be discharged tomorrow. Admission and Anticipated Discharge Date Admission Date: January 20, 2024 Subjective Patient seen and examined, says his breathing is about the same his shortness of breath has not improved, still gets winded whenever he exerts minimally even. Review of Systems Review of Systems: All systems reviewed are negative, apart from the ones contained in the history. Physical Exam Physical Exam: The patient is awake, alert and oriented 3, well developed and well nourished, normocephalic and atraumatic, lying in bed and in no acute distress. HEENT--PERRL, EOMI, mucous membranes and oropharynx mildly dry Neck--supple. No JVD. No bruits. Thyroid normal, trachea midline, no adenopathy. Heart--normal S1 and S2. No murmurs, rubs or gallops. Lungs--reduced air entry on auscultation, bibasilar wheeze Abdomen--normal bowel sounds and soft. Extremities--no cyanosis or clubbing. No edema. Dermatologic--normal skin turgor, normal color, no abnormal lymph nodes, no rash. Neurologic--cranial nerves II through XII grossly intact. Rheumatologic--normal range of motion. Psychiatric--normal affect. Results & Data Results & Data Vital Signs (Past 12 Hours) Vital Signs Temp Pulse Pulse Resp BP Pulse Ox O2 Del Method 01/26/24 11:17 96 H 18 96 Room Air 01/26/24 10:44 Room Air 01/26/24 08:09 91 H 01/26/24 07:36 97.9 F 90 19 138/91 97 Room Air 01/26/24 07:31 97 H 18 91 Room Air 01/26/24 03:00 97.7 F 94 H 16 96/54 L 92 Room Air PG Care Time/CCT Total # of Minutes Spent Total Time Spent with Patient: Total time spent is greater than 50% in coordination of care (as documented) at patient's floor/unit and/or counseling patient: Coding Level of Care Code 20652 SUB INP/OBS CARE 2/35MIN Diagnoses LLL pneumonia J18.9 Pneumonia type: due to unspecified organism Acute hypoxemic respiratory failure J96.01 COPD with acute exacerbation J44.1 Pulmonary cachexia due to COPD R64; J44.9 End stage COPD J44.9 History of pulmonary embolus (PE) Z86.711 Acute and chronic respiratory failure J96.20 Gastroesophageal reflux disease, unspecified whether esophagitis present K21.9 Esophagitis presence: esophagitis presence not specified 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
--- NOTE | 2024-01-26 13:41 | Palliative Care Progress Note ---
Date of Service January 26, 2024 Assessment & Plan (1) Dyspnea and respiratory abnormalities: Plan: Using: Oxy IR 10 mg p.o. 3 times daily, hold for somnolence or respiratory rate less than 14/min Oxy IR 10 mg p.o. every 4 hours as needed, hold for somnolence or respiratory rate less than 14/min (2) Anxiety and depression: Plan: Isak's isolation and being away from home is adding to his struggle. I have asked pet therapy to visit today, Tawanna the therapy canine will be here around 345pm. (3) Pulmonary cachexia due to COPD: (4) Weakness generalized: (5) Poor sleep: (6) Advanced care planning/counseling discussion: Plan: revisited dispo planning and ACP x 20min face to face with Isak at the bedside. still declines hospice but is more agreeable to VNS at home "for a little while" was offered rehab but states he absolutely will not agree to go to inpt rehab, and not to ask again willing to follow up with me in clinic within 3 weeks of dc (7) LLL pneumonia: (8) Palliative care by specialist: (9) End stage COPD: Plan Continue tx for AECOPD He remains resistant to hospice but may be willing to accept short term VNS Pet therapy visit later today Discussed with Isak the goals of moving to long acting to improve sustained relief. He has used a total of 50 mg of oral oxycodone in the last 24 hours. He had a syncopal event earlier today with a low blood pressure which may or may not potentially be related to his oxycodone however at the time of his syncopal event, he had not exerted himself by getting out of bed to walk to the bathroom to urinate and had been without his oxygen. He was hypoxic at the time of this event and his symptoms improved when oxygen was placed back on. Isak and I discussed the potential risks of continuing opioid therapy in the context of advanced illness. He reaffirms that his suffering is great from the dyspnea and in general he feels that he is going to suffocate to . He did have significantly more relief with the increased dose of the oxycodone and feels that there would be some trade-offs he is willing to make to have more comfort with his effort of breathing. We discussed the option of transitioning to a longer acting formula which would allow for a steadier state of the opioid in his system and hopefully better, longer-term control of his dyspnea. He is in agreement and therefore we will transition to longer acting formulation as follows: OxyContin 15mg PO q12h (I specifically discussed with Isak that I have dose reduced 30% for cross tolerance) and we will reduce oxy IR to 5 Mg PO q4h prn BTP and air hunger/prior to exertion.) I have added the hold parameters of: Hold for somnolence or resp rate below 14/min Thank you for allowing us to participate in the ongoing care of this patient. Please don't hesitate to call or page with any additional concerns. Dr. Leonarda Fernando DNP Director, Palliative Care Admission and Anticipated Discharge Date Admission Date: January 20, 2024 Subjective feeling about the same mood depressed misses being home and with his dog appetite is ok and he has same exertional dyspnea lying supine in bed, one pillow beneath head intermittent sl bronchitic cough Better relief with Oxy IR 10mg, has used 2 doses in past 24 hr and remains on 10mg PO TID, total daily Oxy IR is 50mg Earlier this afternoon, he had a code purple where nursing noted he became syncopal and minimally responsive while he ambulated out of bed to the bathroom for urination. This time he was not wearing his oxygen. He was noted to be hypoxic and required oxime mask typically bring his oxygen saturation levels back up at which point he became alert oriented and was responding appropriately. Blood pressure at the time was noted to be soft. On repeat assessment this evening it is 93/60. Review of Systems Review of Systems: All systems reviewed & are unremarkable except as noted in Subjective Physical Exam Constitutional: + ill appearing, + thin, + frail appeari ng and + underweight ENMT: MM dry, dentition fair Neck: trachea midline, no thyromegaly Respiratory: inc resp effort with use of accessory muscles, +conversational dyspnea severely diminished breath sounds increased exp phase, faint wheezing + Intermittent cough Cardiovascular: S1S2, no gross JVD Gastrointestinal (Abdomen): soft, NTP, BS+ Musculoskeletal: WILKES, no crepitus Skin: multiple tears/small abrasions c/w puppy induced injury Neurologic: AAOx3 Psychiatric: Mood is subdued, somewhat despondent. Slightly anxious when he speaks of his dyspnea which has not improved despite the addition of IV antibiotics and steroids. He is intermittently tearful. Results & Data Vital Signs (Past 12 Hours) Vital Signs Temp Pulse Pulse Resp BP Pulse Ox O2 Del Method 01/26/24 11:37 36.7 C 104 H 20 108/68 97 Room Air 01/26/24 11:17 96 H 18 96 Room Air 01/26/24 10:44 Room Air 01/26/24 08:09 91 H 01/26/24 07:36 36.6 C 90 19 138/91 97 Room Air 01/26/24 07:31 97 H 18 91 Room Air 01/26/24 03:00 36.5 C 94 H 16 96/54 L 92 Room Air Laboratory Results data reviewed Diagnostic Findings data reviewed PG Care Time/CCT Total # of Minutes Spent Total Time Spent: 55 Total Time Spent with Patient: Total time spent is greater than 50% in coordination of care (as documented) at patient's floor/unit and/or counseling patient: I spent 55 minutes overall addressing this case: 5 min in medical data review/discussion with referring provider(s) and/or preparation for the visit 15 min in direct interaction with the patient/exam 20 min in Advance Care Planning/Goals of Care discussions as detailed above in note (must be >16min) 5 min in subsequent review and synthesis of assessment and plan 10 min communicating with other providers regarding the patient's case: dr joshua Advanced Care Planning 85246 Advanced Care Planning 30 Min [place] [address] SUB INP/OBS CARE 3/50MIN Patient Type Established Medical Decision Making High Complexity Diagnoses Dyspnea and respiratory abnormalities R06.00; R06.89 Anxiety and depression F41.9; F32.A Pulmonary cachexia due to COPD R64; J44.9 Weakness generalized R53.1 Poor sleep Z72.820 Advanced care planning/counseling discussion Z71.89 LLL pneumonia J18.9 Pneumonia type: due to unspecified organism Palliative care by specialist Z51.5 End stage COPD J44.9 Additional Codes Advanced Care Planning - 99244 Advanced Care Planning 30 Min: 44189 Advanced Care Planning 30 Min ([id number]) (7) LLL pneumonia Pneumonia type: due to unspecified organism Qualified Code(s): J18.9 - Pneumonia, unspecified organism
[2024-01-26] MEDS: predniSONE 20 MG TAB PO SCH (17:53)
[2024-01-26] MEDS: MIDODRINE HCL 2.5 MG TAB PO SCH (17:53)
[2024-01-26] MEDS: oxyCODONE HCL 15 MG TABCR (OxyCONTIN) PO SCH (17:58)
[2024-01-26] MEDS: oxyCODONE HCL IR 5 MG TAB (IMMEDIATE RELEASE) PO PRN (21:39)
[2024-01-27 06:37] LABS: Creatinine Clr Calc Pharmacy 125.2 ml/min; Est GFR (African American) 125.8 ml/min; Est GFR (Non-African American) 108.5 ml/min
--- NOTE | 2024-01-27 12:08 | Hospitalist Progress Note ---
Date of Service January 27, 2024 Assessment & Plan (1) LLL pneumonia: (2) Acute hypoxemic respiratory failure: (3) COPD with acute exacerbation: (4) Pulmonary cachexia due to COPD: (5) End stage COPD: (6) History of pulmonary embolus (PE): (7) Acute and chronic respiratory failure: (8) GERD (gastroesophageal reflux disease): (9) Presence of drug coated stent in left circumflex coronary artery: (10) Dyslipidemia, goal LDL below 70: (11) Type 2 diabetes mellitus: (12) CAD (coronary artery disease): Plan Sepsis /severe sepsis with septic shock Secondary to lobar pneumonia, on a background of end-stage COPD with pulmonary cachexia Sepsis has resolved. Completed a course of IV antibiotics. Will discontinue today End-stage COPD: Imaging showed evidence of advanced emphysema Patient had a visit to his electrical equipment tester end of December 2023. According to the electrical equipment tester, patient is currently on maximal therapy with high-dose ICS/LABA/LAMA therapy, Roflumilast 500 mcg daily, azithromycin every Thursday and Thursday and also daily prednisone 10 mg daily. Continue usual inhalers: Breo elliptica, Incruse Ellipta Continue Daliresp Patient is also followed by palliative and is currently on p.o. oxycodone for anxiety and air hunger. Patient still seems to be in denial regarding his end-stage COPD status, he feels he is able to get better sometime Continue oxycodone 10 mg twice daily for air hunger CAD/hypertension/history of coronary left circumflex artery stent/hyperlipidemia- Continue aspirin 81 mg daily, atorvastatin 80 mg daily, metoprolol succinate 50 mg daily Diabetes mellitus- Hold metformin Placed on Accu-Cheks with NovoLog SSI Patient has been followed by palliative service in the past Will reconsult palliative. History of stage IV lung cancer: Diagnosed in 2011, status post radiation therapy and chemotherapy Currently in remission PET Scan done December 2022 showed 3 subcentimeter nodules to small for PET characterization. 6-month follow-up recommended. No evidence of hypermetabolic lymphadenopathy. History of prostate cancer: Diagnosed in 2021 Hypotension: Most likely responsible for his occasional syncopal episodes Started him on midodrine to support his blood pressure No syncopal episodes since, blood pressure has improved Palliative has been in discussion with patient regarding hospice however patient does not want to entertain the idea. Despite several indications that he is unlikely to improve. He wants to stay 1 more day in the hospital to see if he is going to improve otherwise he is willing to be discharged tomorrow. Admission and Anticipated Discharge Date Admission Date: January 20, 2024 Subjective Patient seen and examined, said his condition is about the same although he misses home but he feels he may not be able to take care of himself at home. He wants to stay 1 more day to see how he feels tomorrow. Review of Systems Review of Systems: All systems reviewed are negative, apart from the ones contained in the history. Physical Exam Physical Exam: The patient is awake, alert and oriented 3, well developed and well nourished, normocephalic and atraumatic, lying in bed and in no acute distress. HEENT--PERRL, EOMI, mucous membranes and oropharynx mildly dry Neck--supple. No JVD. No bruits. Thyroid normal, trachea midline, no adenopathy. Heart--normal S1 and S2. No murmurs, rubs or gallops. Lungs--reduced air entry on auscultation, bibasilar wheeze Abdomen--normal bowel sounds and soft. Extremities--no cyanosis or clubbing. No edema. Dermatologic--normal skin turgor, normal color, no abnormal lymph nodes, no rash. Neurologic--cranial nerves II through XII grossly intact. Rheumatologic--normal range of motion. Psychiatric--normal affect. Results & Data Results & Data Vital Signs (Past 12 Hours) Vital Signs Temp Pulse Resp BP BP Pulse Ox O2 Del Method 01/27/24 11:29 97.5 F L 98 H 20 117/72 95 Room Air 01/27/24 11:11 98 H 16 95 Room Air 01/27/24 10:13 Room Air 01/27/24 07:39 97.5 F L 96 H 20 103/68 96 Room Air 01/27/24 07:09 92 H 18 93 Room Air 01/27/24 05:00 105/63 01/27/24 03:00 97.9 F 101 H 18 101/63 93 Room Air PG Care Time/CCT Total # of Minutes Spent Total Time Spent with Patient: Total time spent is greater than 50% in coordination of care (as documented) at patient's floor/unit and/or counseling patient: Coding Level of Care Code 79542 SUB INP/OBS CARE 235MIN Diagnoses LLL pneumonia J18.9 Pneumonia type: due to unspecified organism Acute hypoxemic respiratory failure J96.01 COPD with acute exacerbation J44.1 Pulmonary cachexia due to COPD R64; J44.9 End stage COPD J44.9 History of pulmonary embolus (PE) Z86.711 Acute and chronic respiratory failure J96.20 Gastroesophageal reflux disease, unspecified whether esophagitis present K21.9 Esophagitis presence: esophagitis presence not specified 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
[2024-01-27] MEDS: oxyCODONE HCL 10 MG TABCR (OxyCONTIN) PO SCH (22:39)
--- NOTE | 2024-01-27 23:55 | Palliative Care Progress Note ---
Date of Service January 27, 2024 Assessment & Plan (1) Dyspnea and respiratory abnormalities: (2) Anxiety and depression: Plan: Isak's isolation and being away from home is adding to his struggle. I have asked pet therapy to visit (3) Pulmonary cachexia due to COPD: (4) Weakness generalized: (5) Poor sleep: (6) Advanced care planning/counseling discussion: Plan: I revisited dispo planning and ACP x 25min face to face with Isak at the bedside. He again declines hospice and SNF rehab but today he agrees to have VNS with in home PT "for a little while" He will follow up with me in clinic within 3 weeks of dc, we will schedule/pt awar (7) LLL pneumonia: (8) Palliative care by specialist: (9) End stage COPD: Plan Continue tx for AECOPD He remains resistant to hospice now willing to accept short term VNS Pet therapy visits are helpful for mood. Discussed with Isak the goals of moving to long acting to improve sustained relief. He has used a total of 50 mg of oral oxycodone in the last 24 hours. He had a syncopal event yesterday and now needs midodrine. Isak and I discussed the potential risks of continuing opioid therapy in the context of advanced illness. He reaffirms that his suffering is great from the dyspnea and in general he feels that he is going to suffocate to . He did have significantly more relief with the oxycodone and feels that there would be some trade-offs he is willing to make to have more comfort with his effort of breathing. We discussed the option of reducing dose of OxyContin from 15mg to 10mg PO q12h and continue Oxy IR 5 Mg PO q4h prn BTP and air hunger/prior to exertion. I have added the hold parameters of: Hold for somnolence or resp rate below 14/min Thank you for allowing us to participate in the ongoing care of this patient. Please don't hesitate to call or page with any additional concerns. Dr. Leonarda Fernando DNP Director, Palliative Care Admission and Anticipated Discharge Date Admission Date: January 20, 2024 Subjective "groggy" today but breathing a little easier midodrine for BP, now improved without syncopal feelings still does not feel ready to go home, continues to state he is not feeling 'better' alone at bedside today appetite ok moving bowels voiding ok, no urinary retention or hesitancy enjoyed pet therapy visit yesterday, lifted his spirits likely dc home tomorrow Review of Systems Review of Systems: All systems reviewed & are unremarkable except as noted in Subjective Physical Exam Constitutional: + ill appearing, + thin, + cachectic, + frail appearing and + underweight ENMT: MM dry, dentition fair Neck: trachea midline, no thyromegaly Respiratory: inc resp effort with use of accessory muscles, +conversational dyspnea severely diminished breath sounds increased exp phase, faint wheezing + Intermittent cough Cardiovascular: S1S2, no gross JVD Gastrointestinal (Abdomen): soft, NTP, BS+ Musculoskeletal: WILKES, no crepitus Skin: scattered ecchymoses Neurologic: AAOx3 Psychiatric: Mood is subdued, despondent. + anxious Results & Data Vital Signs (Past 12 Hours) Vital Signs Temp Pulse Pulse Pulse Resp BP Pulse Ox 01/27/24 23:00 104 H 01/27/24 23:00 01/27/24 22:59 36.6 C 106 H 20 124/80 95 01/27/24 20:12 113 H 18 96 01/27/24 20:08 36.5 C 115 H 18 93/63 L 96 01/27/24 20:00 01/27/24 19:20 106 H 01/27/24 15:53 36.4 C L 96 H 18 127/75 100 01/27/24 15:28 92 H 18 96 O2 Del Method O2 Del Method 01/27/24 23:00 01/27/24 23:00 Room Air 01/27/24 22:59 Room Air 01/27/24 20:12 Room Air 01/27/24 20:08 Room Air 01/27/24 20:00 Room Air 01/27/24 19:20 01/27/24 15:53 Nebulizer 01/27/24 15:28 Room Air Laboratory Results Abnormal lab results 01/27/24 01/27/24 01/27/24 Range/Units 05:41 07:26 11:20 Creatinine 0.58 L (0.6-1.4) mg/dl POC Glucose 167 H 198 H (70-99) mg/dl 01/27/24 01/27/24 Range/Units 16:23 20:25 Creatinine (0.6-1.4) mg/dl POC Glucose 184 H 161 H (70-99) mg/dl Diagnostic Findings Chest X-Ray 01/20/24 18:40 XR chest 1V portable HISTORY: 63 years-old Male Dyspnea acute shortness of breath COMPARISON: CTA chest of same day TECHNIQUE: AP view of the chest FINDINGS: Cardiomediastinal and hilar silhouettes are unchanged. Emphysema with chronic interstitial coarsening. No pneumothorax or overt pulmonary edema. Trace left pleural effusion. Patchy airspace opacities are noted within the left mid lung and left lung base. Left subclavian Aneopz-e-Sfuu catheter. Bones appear grossly intact. IMPRESSION: 1. Emphysema with left basilar pneumonia. Follow-up imaging to document resolution recommended. 2. Trace left pleural effusion. ACT 112: Negative or not required by law. The above report was generated using voice recognition software. It may contain grammatical, syntax or spelling errors. Electronically signed by: Sudhakar Biggs M.D. 01/21/2024 6:49 AM Chest CTA 01/20/24 18:43 Exam(s): CTA CHEST IV Amt: 118 cc opti 320 EXAM: CT Angiography Chest With Intravenous Contrast CLINICAL HISTORY: Reason for exam: PE. TECHNIQUE: Axial computed tomographic angiography images of the chest with intravenous contrast. CTDI is 14.25 mGy and DLP is 633.97 mGy-cm. Automated exposure control was utilized for the study. A dose lowering technique was utilized adhering to the principles of ALARA. MIP reconstructed images were created and reviewed. COMPARISON: 07/26/2023 FINDINGS: Pulmonary arteries: Unremarkable. No pulmonary embolism. Aorta: No acute findings. No thoracic aortic aneurysm. Lungs: New left lower lobe and lingular infiltrates. Diffuse changes COPD. No mass. Pleural space: Small left pleural effusion. No pneumothorax. Heart: Unremarkable. No cardiomegaly. No significant pericardial effusion. No evidence of RV dysfunction. Bones/joints: No acute fracture. No dislocation. Soft tissues: Unremarkable. Lymph nodes: Unremarkable. No enlarged lymph nodes. IMPRESSION: 1. Left lingular and lower lobe pneumonia 2. Small left pleural effusion likely reactive in nature. No pulmonary embolus Electronically signed by: Victorino Landrum MD 01/20/24 21:32 PM PG Care Time/CCT Total # of Minutes Spent Total Time Spent with Patient: Total time spent is greater than 50% in coordination of care (as documented) at patient's floor/unit and/or counseling patient: I spent 75 minutes overall addressing this case: 10 min in medical data review/discussion with referring provider(s) and/or preparation for the visit 15 min in direct interaction with the patient/exam 25 min in Advance Care Planning/Goals of Care discussions as detailed above in note (must be >16min) 10 min in subsequent review and synthesis of assessment and plan 15 min communicating with other providers regarding the patient's case: nursing, primary Advanced Care Planning 34460 Advanced Care Planning 30 Min [place] [address] SUB INP/OBS CARE 3/50MIN Patient Type Established History Comprehensive Exam Comprehensive Medical Decision Making High Complexity Diagnoses Dyspnea and respiratory abnormalities R06.00; R06.89 Anxiety and depression F41.9; F32.A Pulmonary cachexia due to COPD R64; J44.9 Weakness generalized R53.1 Poor sleep Z72.820 Advanced care planning/counseling discussion Z71.89 LLL pneumonia J18.9 Pneumonia type: due to unspecified organism Palliative care by specialist Z51.5 End stage COPD J44.9 Additional Codes Advanced Care Planning - 64824 Advanced Care Planning 30 Min: 69479 Advanced Care Planning 30 Min ([id number]) (7) LLL pneumonia Pneumonia type: due to unspecified organism Qualified Code(s): J18.9 - Pneumonia, unspecified organism
--- NOTE | 2024-01-28 05:59 | Communication Note ---
Date of Service: January 28, 2024 Notified by nursing of fall. Elevated pt at bedside, he states that he was up to use restroom and became lightheaded. Hit left side of face. Was initially hypotensive after incident, but by the time I got to room was back in bed and normotensive. Notes to prior falls this admission with similar circumstances. AAOx4; complained of left sided facial pain. Early ecchymosis noted on left side of face. Some tenderness above eye. Notes mild headache. CN II-XII intact. Strength 5/5 UE and LE B/L. Both upper and lower extremities non-tender to palpation. CT head/facial bones ordered. Neuro checks q4.
--- NOTE | 2024-01-28 06:14 | CT Scan Report ---
Exam(s): CT HEAD Without Contrast EXAM: CT Head Without Intravenous Contrast CLINICAL HISTORY: Reason for exam: Fall. TECHNIQUE: Axial computed tomography images of the head/brain without intravenous contrast. CTDI is 37.69 mGy and DLP is 837.82 mGy-cm. Automated exposure control was utilized for the study. A dose lowering technique was utilized adhering to the principles of ALARA. COMPARISON: No relevant prior studies available. FINDINGS: Brain: There are some hypodensities within the periventricular and subcortical white matter of a mild degree. No hemorrhage. Ventricles: Unremarkable. No ventriculomegaly. Bones/joints: Unremarkable. No acute fracture. Soft tissues: Some mild scalp soft tissue swelling demonstrated over the right sided high convexity. Sinuses: Unremarkable as visualized. No acute sinusitis. Mastoid air cells: Unremarkable as visualized. No mastoid effusion. IMPRESSION: Soft tissue swelling, chronic ischemic microvascular process. No acute bleed mass or infarction seen. Electronically signed by: Jonny Powell MD 01/28/24 06:13 AM
--- NOTE | 2024-01-28 06:20 | CT Scan Report ---
Exam(s): CT FACIAL Without Contrast EXAM: CT Maxillofacial Without Intravenous Contrast CLINICAL HISTORY: Reason for exam: Fall. TECHNIQUE: Axial computed tomography images of the face without intravenous contrast. Automated exposure control was utilized for the study. A dose lowering technique was utilized adhering to the principles of ALARA. COMPARISON: No relevant prior studies available. FINDINGS: Limitations: The study is limited due to motion artifact particularly demonstrated to the mandible on the right side. Bones/joints: See above. Soft tissues: Unremarkable. Orbits: Unremarkable. Sinuses: Unremarkable. No air-fluid levels. Dental: The patient is edentulous. IMPRESSION: No acute findings in the face. Electronically signed by: Jonny Powell MD 01/28/24 06:19 AM
--- NOTE | 2024-01-28 11:56 | Hospitalist Progress Note ---
Date of Service January 28, 2024 Assessment & Plan (1) LLL pneumonia: (2) Acute hypoxemic respiratory failure: (3) COPD with acute exacerbation: (4) Pulmonary cachexia due to COPD: (5) End stage COPD: (6) History of pulmonary embolus (PE): (7) Acute and chronic respiratory failure: (8) GERD (gastroesophageal reflux disease): (9) Presence of drug coated stent in left circumflex coronary artery: (10) Dyslipidemia, goal LDL below 70: (11) Type 2 diabetes mellitus: (12) CAD (coronary artery disease): Plan Sepsis /severe sepsis with septic shock Secondary to lobar pneumonia, on a background of end-stage COPD with pulmonary cachexia Sepsis has resolved. Completed a course of IV antibiotics. End-stage COPD: Imaging showed evidence of advanced emphysema Patient had a visit to his technical document writer end of December 2023. According to the technical document writer, patient is currently on maximal therapy with high-dose ICS/LABA/LAMA therapy, Roflumilast 500 mcg daily, azithromycin every Thursday and Thursday and also daily prednisone 10 mg daily. Continue usual inhalers: Breo elliptica, Incruse Ellipta Continue Daliresp Patient is also followed by palliative and is currently on p.o. oxycodone for anxiety and air hunger. Patient still seems to be in denial regarding his end-stage COPD status, he feels he is able to get better sometime Continue oxycodone 10 mg twice daily for air hunger CAD/hypertension/history of coronary left circumflex artery stent/ hyperlipidemia- Continue aspirin 81 mg daily, atorvastatin 80 mg daily, metoprolol succinate 50 mg daily Diabetes mellitus- Hold metformin Placed on Accu-Cheks with NovoLog SSI Patient has been followed by palliative service in the past Will reconsult palliative. History of stage IV lung cancer: Diagnosed in 2011, status post radiation therapy and chemotherapy Currently in remission PET Scan done December 2022 showed 3 subcentimeter nodules to small for PET characterization. 6-month follow-up recommended. No evidence of hypermetabolic lymphadenopathy. History of prostate cancer: Diagnosed in 2021 Hypotension: Some improvement following midodrine Palliative has been in discussion with patient regarding hospice however patient does not want to entertain the idea. Despite several indications that he is unlikely to improve. Home health has been set up, however patient said he is not ready to go home yet. Admission and Anticipated Discharge Date Admission Date: January 20, 2024 Subjective Patient seen and examined, and very low spirits, said he is not getting better, said he is not ready to go home yet. Review of Systems Review of Systems: All systems reviewed are negative, apart from the ones contained in the history. Physical Exam Physical Exam: The patient is awake, alert and oriented 3, well developed and well nourished, normocephalic and atraumatic, lying in bed and in no acute distress. HEENT--PERRL, EOMI, mucous membranes and oropharynx mildly dry Neck--supple. No JVD. No bruits. Thyroid normal, trachea midline, no adenopathy. Heart--normal S1 and S2. No murmurs, rubs or gallops. Lungs--reduced air entry on auscultation, bibasilar wheeze Abdomen--normal bowel sounds and soft. Extremities--no cyanosis or clubbing. No edema. Dermatologic--normal skin turgor, normal color, no abnormal lymph nodes, no rash. Neurologic--cranial nerves II through XII grossly intact. Rheumatologic--normal range of motion. Psychiatric--normal affect. Results & Data Results & Data Vital Signs (Past 12 Hours) Vital Signs Temp Pulse Pulse Pulse Resp BP BP 01/28/24 10:09 01/28/24 07:11 99 H 01/28/24 07:06 113 H 18 01/28/24 06:48 98.1 F 103 H 18 104/70 01/28/24 04:26 98 H 136/87 01/28/24 03:00 110 H 100/66 01/28/24 02:55 64/36 L 01/28/24 02:52 98.6 F 100 H 18 121/76 Pulse Ox O2 Del Method 01/28/24 10:09 Room Air 01/28/24 07:11 01/28/24 07:06 91 Room Air 01/28/24 06:48 98 Room Air 01/28/24 04:26 01/28/24 03:00 01/28/24 02:55 01/28/24 02:52 97 Room Air PG Care Time/CCT Total # of Minutes Spent Total Time Spent with Patient: Total time spent is greater than 50% in coordination of care (as documented) at patient's floor/unit and/or counseling patient: Coding Level of Care Code 66876 SUB INP/OBS CARE 235MIN Diagnoses LLL pneumonia J18.9 Pneumonia type: due to unspecified organism Acute hypoxemic respiratory failure J96.01 COPD with acute exacerbation J44.1 Pulmonary cachexia due to COPD R64; J44.9 End stage COPD J44.9 History of pulmonary embolus (PE) Z86.711 Acute and chronic respiratory failure J96.20 Gastroesophageal reflux disease, unspecified whether esophagitis present K21.9 Esophagitis presence: esophagitis presence not specified 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
[2024-01-28] MEDS: MIDODRINE HCL 10 MG TAB PO SCH (19:29)
[2024-01-28] MEDS: MIDODRINE HCL 2.5 MG TAB PO STA (20:00)
[2024-01-29] MEDS: MIDODRINE HCL 10 MG TAB PO SCH (08:44)
--- NOTE | 2024-01-29 11:20 | Hospitalist Progress Note ---
Date of Service January 29, 2024 Assessment & Plan (1) LLL pneumonia: (2) Acute hypoxemic respiratory failure: (3) COPD with acute exacerbation: (4) Pulmonary cachexia due to COPD: (5) End stage COPD: (6) History of pulmonary embolus (PE): (7) Acute and chronic respiratory failure: (8) GERD (gastroesophageal reflux disease): (9) Presence of drug coated stent in left circumflex coronary artery: (10) Dyslipidemia, goal LDL below 70: (11) Type 2 diabetes mellitus: (12) CAD (coronary artery disease): (13) Orthostasis: Plan Sepsis /severe sepsis with septic shock Secondary to lobar pneumonia, on a background of end-stage COPD with pulmonary cachexia Sepsis has resolved. Completed a course of IV antibiotics. End-stage COPD: Imaging showed evidence of advanced emphysema Patient had a visit to his hand tube bender end of December 2023. According to the hand tube bender, patient is currently on maximal therapy with high-dose ICS/LABA/LAMA therapy, Roflumilast 500 mcg daily, azithromycin every Thursday and Thursday and also daily prednisone 10 mg daily. Continue usual inhalers: Breo elliptica, Incruse Ellipta Continue Daliresp Patient is also followed by palliative and is currently on p.o. oxycodone for anxiety and air hunger. Patient still seems to be in denial regarding his end-stage COPD status, he feels he is able to get better sometime Continue oxycodone 10 mg twice daily for air hunger CAD/hypertension/history of coronary left circumflex artery stent/hyperlipidemia- Continue aspirin 81 mg daily, atorvastatin 80 mg daily, metoprolol succinate 50 mg daily Diabetes mellitus- Hold metformin Placed on Accu-Cheks with NovoLog SSI Patient has been followed by palliative service in the past Palliative following here in the hospital History of stage IV lung cancer: Diagnosed in 2011, status post radiation therapy and chemotherapy Currently in remission PET Scan done December 2022 showed 3 subcentimeter nodules to small for PET characterization. 6-month follow-up recommended. No evidence of hypermetabolic lymphadenopathy. History of prostate cancer: Diagnosed in 2021 Orthostatic hypotension: Probably responsible for his frequent falls Positive orthostatic changes in vital signs. Blood pressure dropped from 99 systolic to 65 Some improvement following midodrine will increase to 10 mg 3 times daily Palliative has been in discussion with patient regarding hospice however patient does not want to entertain the idea. Despite several indications that he is unlikely to improve. Home health has been set up, however patient said he is not ready to go home yet. Awaiting evaluation by physical therapy, patient wants to go to rehab but has been informed he may have to pay [id number]. Admission and Anticipated Discharge Date Admission Date: January 20, 2024 Subjective Patient seen and examined, his brother by the bedside, says he is does not feel safe going home because he keeps falling. Review of Systems Review of Systems: All systems reviewed are negative, apart from the ones contained in the history. Physical Exam Physical Exam: The patient is awake, alert and oriented 3, well developed and well nourished, normocephalic and atraumatic, lying in bed and in no acute distress. HEENT--PERRL, EOMI, mucous membranes and oropharynx mildly dry Neck--supple. No JVD. No bruits. Thyroid normal, trachea midline, no adenopathy. Heart--normal S1 and S2. No murmurs, rubs or gallops. Lungs--reduced air entry on auscultation, bibasilar wheeze Abdomen--normal bowel sounds and soft. Extremities--no cyanosis or clubbing. No edema. Dermatologic--normal skin turgor, normal color, no abnormal lymph nodes, no rash. Neurologic--cranial nerves II through XII grossly intact. Rheumatologic--normal range of motion. Psychiatric--normal affect. Results & Data Results & Data Vital Signs (Past 12 Hours) Vital Signs Temp Pulse Pulse Resp BP BP Pulse Ox 01/29/24 08:45 91/57 L 01/29/24 08:06 98.6 F 97 H 16 110/67 97 01/29/24 07:19 95 H 16 95 01/29/24 07:15 86 01/29/24 07:15 01/29/24 03:30 97.9 F 96 H 15 120/85 96 O2 Del Method 01/29/24 08:45 01/29/24 08:06 Room Air 01/29/24 07:19 Room Air 01/29/24 07:15 01/29/24 07:15 Room Air 01/29/24 03:30 Room Air PG Care Time/CCT Total # of Minutes Spent Total Time Spent with Patient: Total time spent is greater than 50% in coordination of care (as documented) at patient's floor/unit and/or counseling patient: Coding Level of Care Code 95090 SUB INP/OBS CARE 2/35MIN Diagnoses LLL pneumonia J18.9 Pneumonia type: due to unspecified organism Acute hypoxemic respiratory failure J96.01 COPD with acute exacerbation J44.1 Pulmonary cachexia due to COPD R64; J44.9 End stage COPD J44.9 History of pulmonary embolus (PE) Z86.711 Acute and chronic respiratory failure J96.20 Gastroesophageal reflux disease, unspecified whether esophagitis present K21.9 Esophagitis presence: esophagitis presence not specified Presence of drug coated stent in left circumflex coronary artery Z95.5 Dyslipidemia, goal LDL below 70 E78.5 Type 2 diabetes mellitus E11.9 CAD (coronary artery disease) I25.10 Orthostasis I95.1 Time Spent (min) 35 (1) LLL pneumonia Pneumonia type: due to unspecified organism Qualified Code(s): J18.9 - Pneumonia, unspecified organism (8) GERD (gastroesophageal reflux disease) Esophagitis presence: esophagitis presence not specified Qualified Code(s): K21.9 - Gastro-esophageal reflux disease without esophagitis
--- NOTE | 2024-01-29 22:58 | Palliative Care Progress Note ---
Date of Service January 29, 2024 Assessment & Plan (1) Dyspnea and respiratory abnormalities: Plan: end stage COPD, prior lung cancer, deconditioning last echo Oct 2023 (2) Anxiety and depression: Plan: Isak's isolation and being away from home is adding to his struggle. I have asked pet therapy to visit (3) Pulmonary cachexia due to COPD: (4) Weakness generalized: (5) Poor sleep: (6) Advanced care planning/counseling discussion: Plan: Met with Isak face to face for 25min ACP discussion today. Notes that he was evaluated by [facility] today. The [facility] rep is an old coworker of his from [employer], so he is hoping he may get accepted d/t he has a connection. He is willing to otherwise go to snf rehab and asked about [place] care. We had a long talk about his lung disease and where things are at, what better may have to mean at this junction and how he needs to accept more help of goal of getting home is still prevailing. He openly admits he would not be able to lean on family for ATC help though they would be able to see him everyday, check in and assist him with any needs such as errands, groceries, etc. We spoke about Hospice vs home health. Still feels HH was not that useful but also starting to see he may need to accept help in order to stay at home. Still resisting hospice. Notes he does not "disagree with what they do for people but I don't see how I need them for now." Reviewed the differences in support/resources and supervisor irrigation between [facility] and hospice. Advised hospice can be more engaged with his day to day needs and their time in his home is 1-2 hr, not around the clock. They would not invade his privacy for long periods of time. The additional psychosocial support of hospice can help alleviate his isolation as well. He agreed to think about it through the weekend but remained focused on getting to [facility]. (7) LLL pneumonia: (8) Palliative care by specialist: (9) End stage COPD: Plan Continue tx for AECOPD. Pet therapy visits are helpful for mood. He is going to think about hospice but hopes for [facility] first. Continue OxyContin 10mg PO q12h and continue Oxy IR 5 Mg PO q4h prn BTP and air hunger/prior to exertion with the hold parameters of: Hold for somnolence or resp rate below 14/min Thank you for allowing us to participate in the ongoing care of this patient. Please don't hesitate to call or page with any additional concerns. Dr. Leonarda Fernando DNP Director, Palliative Care Admission and Anticipated Discharge Date Admission Date: January 20, 2024 Subjective feeling ok/tolerating meds continues to state, "I still don't feel better - you guys haven't fixed the trouble." fell again ambulating to bathroom and now has some bruising agreeable to rehab and met with [facility] rep today appetite ok but not in the mood to eat much mood subdued feeling frustrated Review of Systems Review of Systems: All systems reviewed & are unremarkable except as noted in Subjective Physical Exam Constitutional: + ill appearing, + thin, + cachectic, + frail appearing and + underweight ENMT: MM dry, dentition fair Neck: trachea midline, no thyromegaly Respiratory: inc resp effort with use of accessory muscles, +conversational dyspnea severely diminished breath sounds increased exp phase, faint wheezing + Intermittent cough Cardiovascular: S1S2, no gross JVD Gastrointestinal (Abdomen): soft, NTP, BS+ Musculoskeletal: WILKES, no crepitus Skin: scattered ecchymoses Neurologic: AAOx3 Psychiatric: Mood is subdued, despondent. + anxious Results & Data Vital Signs (Past 12 Hours) Vital Signs Temp Pulse Pulse Resp BP BP Pulse Ox 01/29/24 22:48 36.5 C 111 H 18 116/72 96 01/29/24 21:29 111 H 102/71 01/29/24 19:38 01/29/24 19:30 36.5 C 112 H 18 92/61 L 100 01/29/24 19:24 111 H 18 95 01/29/24 16:30 36.7 C 97 H 18 119/63 121/57 L 96 01/29/24 15:22 95 H 16 99 01/29/24 14:37 102 H 01/29/24 12:01 36.9 C 98 H 18 101/63 97 O2 Del Method 01/29/24 22:48 Room Air 01/29/24 21:29 01/29/24 19:38 Room Air 01/29/24 19:30 Room Air 01/29/24 19:24 Room Air 01/29/24 16:30 Room Air 01/29/24 15:22 Room Air 01/29/24 14:37 01/29/24 12:01 Room Air Laboratory Results data reviewed Diagnostic Findings data reviewed PG Care Time/CCT Total # of Minutes Spent Total Time Spent with Patient: Total time spent is greater than 50% in coordination of care (as documented) at patient's floor/unit and/or counseling patient: I spent 60 minutes overall addressing this case: 10 min in medical data review/discussion with referring provider(s) and/or preparation for the visit 15min in direct interaction with the patient/exam 25 min in Advance Care Planning/Goals of Care discussions as detailed above in note (must be >16min) 5 min in subsequent review and synthesis of assessment and plan 5 min communicating with other providers regarding the patient's case: Advanced Care Planning 00004 Advanced Care Planning 30 Min [place] [address] SUB INP/OBS CARE 2/35MIN Patient Type Established History Comprehensive Exam Comprehensive Medical Decision Making High Complexity Diagnoses Dyspnea and respiratory abnormalities R06.00; R06.89 Anxiety and depression F41.9; F32.A Pulmonary cachexia due to COPD R64; J44.9 Weakness generalized R53.1 Poor sleep Z72.820 Advanced care planning/counseling discussion Z71.89 LLL pneumonia J18.9 Pneumonia type: due to unspecified organism Palliative care by specialist Z51.5 End stage COPD J44.9 Additional Codes Advanced Care Planning - 39094 Advanced Care Planning 30 Min: 39933 Advanced Care Planning 30 Min ([id number]) (7) LLL pneumonia Pneumonia type: due to unspecified organism Qualified Code(s): J18.9 - Pneumonia, unspecified organism
[2024-01-30 07:15] LABS: BUN Creatinine Ratio 44.9 (10-20); Calcium 7.9 mg/dl (8.6-10.3); Creatinine Clr Calc Pharmacy 146.2 ml/min; Est GFR (African American) 134.8 ml/min; Est GFR (Non-African American) 116.3 ml/min
--- NOTE | 2024-01-30 10:12 | Hospitalist Progress Note ---
Date of Service January 30, 2024 Assessment & Plan (1) LLL pneumonia: (2) Acute hypoxemic respiratory failure: (3) COPD with acute exacerbation: (4) Pulmonary cachexia due to COPD: (5) End stage COPD: (6) History of pulmonary embolus (PE): (7) Acute and chronic respiratory failure: (8) GERD (gastroesophageal reflux disease): (9) Presence of drug coated stent in left circumflex coronary artery: (10) Dyslipidemia, goal LDL below 70: (11) Type 2 diabetes mellitus: (12) CAD (coronary artery disease): (13) Orthostasis: Plan Sepsis /severe sepsis with septic shock Secondary to lobar pneumonia, on a background of end-stage COPD with pulmonary cachexia Sepsis has resolved. Completed a course of IV antibiotics. End-stage COPD: Imaging showed evidence of advanced emphysema Patient had a visit to his auto painter end of December 2023. According to the auto painter, patient is currently on maximal therapy with high-dose ICS/LABA/LAMA therapy, Roflumilast 500 mcg daily, azithromycin every Thursday and Thursday and also daily prednisone 10 mg daily. Continue usual inhalers: Breo elliptica, Incruse Ellipta Continue Daliresp Patient is also followed by palliative and is currently on p.o. oxycodone for anxiety and air hunger. Patient still seems to be in denial regarding his end-stage COPD status, he feels he is able to get better sometime Continue oxycodone 10 mg twice daily for air hunger CAD/hypertension/history of coronary left circumflex artery stent/hyperlipidemia- Continue aspirin 81 mg daily, atorvastatin 80 mg daily, metoprolol succinate 50 mg daily Diabetes mellitus- Hold metformin Placed on Accu-Cheks with NovoLog SSI Patient has been followed by palliative service in the past Palliative following here in the hospital History of stage IV lung cancer: Diagnosed in 2011, status post radiation therapy and chemotherapy Currently in remission PET Scan done December 2022 showed 3 subcentimeter nodules to small for PET characterization. 6-month follow-up recommended. No evidence of hypermetabolic lymphadenopathy. History of prostate cancer: Diagnosed in 2021 Orthostatic hypotension: Probably responsible for his frequent falls Positive orthostatic changes in vital signs. Blood pressure dropped from 99 systolic to 65 Some improvement following midodrine will increase to 10 mg 3 times daily, but still orthostatic Will add fludrocortisone 0.1 mg daily Palliative has been in discussion with patient regarding hospice however patient does not want to entertain the idea. Despite several indications that he is unlikely to improve. Home health has been set up, however patient said he is not ready to go home ye t. Awaiting evaluation by physical therapy, patient wants to go to rehab but has been informed he may have to pay [id number]. Admission and Anticipated Discharge Date Admission Date: January 20, 2024 Subjective Patient seen and examined, still orthostatic despite being on high-dose midodrine. Will add fludrocortisone Review of Systems Review of Systems: All systems reviewed are negative, apart from the ones contained in the history. Physical Exam Physical Exam: The patient is awake, alert and oriented 3, well developed and well nourished, normocephalic and atraumatic, lying in bed and in no acute distress. HEENT--PERRL, EOMI, mucous membranes and oropharynx mildly dry Neck--supple. No JVD. No bruits. Thyroid normal, trachea midline, no adenopathy. Heart--normal S1 and S2. No murmurs, rubs or gallops. Lungs--reduced air entry on auscultation, bibasilar wheeze Abdomen--normal bowel sounds and soft. Extremities--no cyanosis or clubbing. No edema. Dermatologic--normal skin turgor, normal color, no abnormal lymph nodes, no rash. Neurologic--cranial nerves II through XII grossly intact. Rheumatologic--normal range of motion. Psychiatric--normal affect. Results & Data Results & Data Vital Signs (Past 12 Hours) Vital Signs Temp Pulse Pulse Resp BP Pulse Ox O2 Del Method 01/30/24 09:00 Room Air 01/30/24 08:00 98.2 F 112 H 20 115/66 98 Room Air 01/30/24 07:25 94 H 01/30/24 07:09 102 H 16 97 Room Air 01/30/24 03:09 97.9 F 101 H 18 101/70 97 Room Air 01/29/24 23:00 107 H 01/29/24 22:48 97.7 F 111 H 18 116/72 96 Room Air PG Care Time/CCT Total # of Minutes Spent Total Time Spent with Patient: Total time spent is greater than 50% in coordination of care (as documented) at patient's floor/unit and/or counseling patient: Coding Level of Care Code 97527 SUB INP/OBS CARE 235MIN Diagnoses LLL pneumonia J18.9 Pneumonia type: due to unspecified organism Acute hypoxemic respiratory failure J96.01 COPD with acute exacerbation J44.1 Pulmonary cachexia due to COPD R64; J44.9 End stage COPD J44.9 History of pulmonary embolus (PE) Z86.711 Acute and chronic respiratory failure J96.20 Gastroesophageal reflux disease, unspecified whether esophagitis present K21.9 Esophagitis presence: esophagitis presence not specified Presence of drug coated stent in left circumflex coronary artery Z95.5 Dyslipidemia, goal LDL below 70 E78.5 Type 2 diabetes mellitus E11.9 CAD (coronary artery disease) I25.10 Orthostasis I95.1 Time Spent (min) 35 (1) LLL pneumonia Pneumonia type: due to unspecified organism Qualified Code(s): J18.9 - Pneumonia, unspecified organism (8) GERD (gastroesophageal reflux disease) Esophagitis presence: esophagitis presence not specified Qualified Code(s): K21.9 - Gastro-esophageal reflux disease without esophagitis
[2024-01-30] MEDS: FLUDROCORTISONE ACETATE 0.1 MG TAB PO SCH (11:42)
--- NOTE | 2024-01-31 09:45 | Hospitalist Progress Note ---
Date of Service January 31, 2024 Assessment & Plan (1) LLL pneumonia: (2) Acute hypoxemic respiratory failure: (3) COPD with acute exacerbation: (4) Pulmonary cachexia due to COPD: (5) End stage COPD: (6) History of pulmonary embolus (PE): (7) Acute and chronic respiratory failure: (8) GERD (gastroesophageal reflux disease): (9) Presence of drug coated stent in left circumflex coronary artery: (10) Dyslipidemia, goal LDL below 70: (11) Type 2 diabetes mellitus: (12) CAD (coronary artery disease): (13) Orthostasis: Plan Sepsis /severe sepsis with septic shock Secondary to lobar pneumonia, on a background of end-stage COPD with pulmonary cachexia Sepsis has resolved. Completed a course of IV antibiotics. End-stage COPD: Imaging showed evidence of advanced emphysema Patient had a visit to his natural science manager end of December 2023. According to the natural science manager, patient is currently on maximal therapy with high-dose ICS/LABA/LAMA therapy, Roflumilast 500 mcg daily, azithromycin every Thursday and Thursday and also daily prednisone 10 mg daily. Continue usual inhalers: Breo elliptica, Incruse Ellipta Continue Daliresp Patient is also followed by palliative and is currently on p.o. oxycodone for anxiety and air hunger. Patient still seems to be in denial regarding his end-stage COPD status, he feels he is able to get better sometime Continue oxycodone 10 mg twice daily for air hunger CAD/hypertension/history of coronary left circumflex artery stent/hyperlipidemia- Continue aspirin 81 mg daily, atorvastatin 80 mg daily, metoprolol succinate 50 mg daily Diabetes mellitus- Hold metformin Placed on Accu-Cheks with NovoLog SSI Patient has been followed by palliative service in the past Palliative following here in the hospital History of stage IV lung cancer: Diagnosed in 2011, status post radiation therapy and chemotherapy Currently in remission PET Scan done December 2022 showed 3 subcentimeter nodules to small for PET characterization. 6-month follow-up recommended. No evidence of hypermetabolic lymphadenopathy. History of prostate cancer: Diagnosed in 2021 Orthostatic hypotension: Probably responsible for his frequent falls Positive orthostatic changes in vital signs. Blood pressure dropped from 99 systolic to 65 Some improvement following midodrine will increase to 10 mg 3 times daily, but still orthostatic Will add fludrocortisone 0.1 mg daily Palliative has been in discussion with patient regarding hospice however patient does not want to entertain the idea, Despite several indications that he is unlikely to improve. Home health has been set up, however patient said he is not ready to go home yet . Request for acute rehab was denied by insurance, will reach out to social work to put in a request for SNF. Admission and Anticipated Discharge Date Admission Date: January 20, 2024 Subjective Patient seen and examined, no complaints overnight Review of Systems Review of Systems: All systems reviewed are negative, apart from the ones contained in the history. Physical Exam Physical Exam: The patient is awake, alert and oriented 3, well developed and well nourished, normocephalic and atraumatic, lying in bed and in no acute distress. HEENT--PERRL, EOMI, mucous membranes and oropharynx mildly dry Neck--supple. No JVD. No bruits. Thyroid normal, trachea midline, no adenopat hy. Heart--normal S1 and S2. No murmurs, rubs or gallops. Lungs--reduced air entry on auscultation, bibasilar wheeze Abdomen--normal bowel sounds and soft. Extremities--no cyanosis or clubbing. No edema. Dermatologic--normal skin turgor, normal color, no abnormal lymph nodes, no rash. Neurologic--cranial nerves II through XII grossly intact. Rheumatologic--normal range of motion. Psychiatric--normal affect. Results & Data Results & Data Vital Signs (Past 12 Hours) Vital Signs Temp Pulse Pulse Resp BP Pulse Ox O2 Del Method 01/31/24 07:30 97.9 F 99 H 18 105/68 93 Room Air 01/31/24 06:54 103 H 18 97 Room Air 01/31/24 05:58 96 H 01/31/24 03:04 97.7 F 97 H 18 126/80 95 Room Air 01/30/24 23:03 97.9 F 111 H 20 120/79 95 Room Air 01/30/24 23:00 01/30/24 22:00 107 H O2 Del Method 01/31/24 07:30 01/31/24 06:54 01/31/24 05:58 01/31/24 03:04 01/30/24 23:03 01/30/24 23:00 Room Air 01/30/24 22:00 PG Care Time/CCT Total # of Minutes Spent Total Time Spent with Patient: Total time spent is greater than 50% in coordination of care (as documented) at patient's floor/unit and/or counseling patient: Coding Level of Care Code 23137 SUB INP/OBS CARE 2/35MIN Diagnoses LLL pneumonia J18.9 Pneumonia type: due to unspecified organism Acute hypoxemic respiratory failure J96.01 COPD with acute exacerbation J44.1 Pulmonary cachexia due to COPD R64; J44.9 End stage COPD J44.9 History of pulmonary embolus (PE) Z86.711 Acute and chronic respiratory failure J96.20 Gastroesophageal reflux disease, unspecified whether esophagitis present K21.9 Esophagitis presence: esophagitis presence not specified Presence of drug coated stent in left circumflex coronary artery Z95.5 Dyslipidemia, goal LDL below 70 E78.5 Type 2 diabetes mellitus E11.9 CAD (coronary artery disease) I25.10 Orthostasis I95.1 Time Spent (min) 35 (1) LLL pneumonia Pneumonia type: due to unspecified organism Qualified Code(s): J18.9 - Pneumonia, unspecified organism (8) GERD (gastroesophageal reflux disease) Esophagitis presence: esophagitis presence not specified Qualified Code(s): K21.9 - Gastro-esophageal reflux disease without esophagitis
[2024-02-01 08:20] LABS: Hematocrit (blood only) 40.1 % (42.0-52.0); Hemoglobin 12.7 g/dl (14.0-18.0); Mean Corpuscular Hemoglobin 27.4 pg (25.0-34.0); Mean Corpuscular Hgb Conc 31.7 g/dL (32.0-36.0); Mean Corpuscular Volume 86.6 fL (80.0-100.0); Mean Platelet Volume 9.4 fL (9.4-12.4); Platelet Count 261 K/uL (130-400); RDW Coefficient of Variation 17.1 % (11.5-14.5); RDW Standard Deviation 52.5 fL (36.4-46.3); Red Blood Count 4.63 M/uL (4.70-6.10); White Blood Count 14.83 K/ul (4.8-10.8)
[2024-02-01 08:36] LABS: BUN Creatinine Ratio 34.6 (10-20); Calcium 8.1 mg/dl (8.6-10.3); Creatinine Clr Calc Pharmacy 137.4 ml/min; Est GFR (African American) 131.5 ml/min; Est GFR (Non-African American) 113.5 ml/min; Potassium 3.9 mmol/L (3.5-5.1)
[2024-02-01 08:40] LABS: Basophils # (auto) 0.02 K/uL (0.00-0.20); Basophils % (auto) 0.1 %; Immature Granulocytes # (auto) 0.24 K/uL (0.01-0.20); Immature Granulocytes % (auto) 1.6 %; Lymphocytes # (auto) 0.31 K/uL (1.20-3.40); Lymphocytes % (auto) 2.1 %; Monocytes # (auto) 0.31 K/uL (0.11-0.59); Monocytes % (auto) 2.1 %; Neutrophils # (auto) 13.95 K/uL (1.40-6.50); Neutrophils % (auto) 94.1 %
[2024-02-01] MEDS: metFORMIN HCL 500 MG TAB PO SCH (08:57)
--- NOTE | 2024-02-01 11:42 | Hospitalist Progress Note ---
Date of Service February 01, 2024 Assessment & Plan (1) LLL pneumonia: Plan: Present on admission. Now resolved with antibiotic therapy (2) Acute hypoxemic respiratory failure: Plan: Present on admission. Now resolved. He is on room air (3) COPD with acute exacerbation: Plan: Acute exacerbation present on admission. Now resolved. He is at his baseline (4) GERD (gastroesophageal reflux disease): Plan: Stable. Continue current medical management (5) Presence of drug coated stent in left circumflex coronary artery: Plan: Stable. Continue current medical management (6) Dyslipidemia, goal LDL below 70: Plan: Stable. Continue current medical management (7) Type 2 diabetes mellitus: Plan: ADA diet. Metformin was restarted today, January 31. Sliding scale coverage as needed. (8) CAD (coronary artery disease): Plan: Stable. Continue current medical (9) Orthostasis: Plan: Could be causing his multiple falls. Vital signs are stable while supine however. Will follow Plan Hopeful discharge to SNF when arrangements are finalized. He was denied IPR placement by insurance. Admission and Anticipated Discharge Date Admission Date: January 20, 2024 Subjective Alert and oriented. No acute distress. He has multiple bruises stating he fell multiple times while hospitalized here. Apparently IPR placement was denied. SNF placement is pending. Metformin was restarted today, January 31. He is medically stable at this time. Review of Systems 2 Review of Systems: Constitutional-no fever or chills ENT-no blurred vision, no double vision, no epistaxis, no sore throat Respiratory-no cough, no wheezing, no shortness of breath Cardiac-no palpitations, no chest pain, no syncope GI-no nausea, vomiting, diarrhea, melena, hematochezia -no urinary retention, no urinary incontinence, no dysuria, no hematuria Musculoskeletal-no joint pain, no muscle tenderness Skin-ecchymotic areas noted on both arms and about the left eye Neuro- generalized weakness with multiple falls. No focal deficits. Psych-no depression, no anxiety Physical Exam 2 Physical Exam: General-alert and oriented x3, no fever, no chills HEENT-head atraumatic and normocephalic, pupils equal and reactive to light, extraocular muscles intact Neck-no lymphadenopathy or thyromegaly, trachea midline Chest-diminished breath sounds bilaterally. No wheezing or rhonchi. No inspiratory rales. Cardiac-regular rate and rhythm, normal S1 and S2 Abdomen-normal bowel sounds, no hepatosplenomegaly Extremities-no cyanosis, clubbing, or edema Skinmultiple ecchymotic areas noted on both upper extremities and in the left periorbital area Neuro-cranial nerves II through XII intact, motor and sensory function within normal limits, strength symmetrical with generalized weakness, no focal deficits Psych-normal affect, normal mood Results & Data Results & Data Vital Signs (Past 12 Hours) Vital Signs Temp Pulse Pulse Resp BP Pulse Ox O2 Del Method 02/01/24 11:30 90 18 97 Room Air 02/01/24 08:00 88 02/01/24 08:00 Room Air 02/01/24 07:19 93 H 16 96 Room Air 02/01/24 07:15 36.7 C 90 18 98/66 L 96 Room Air 02/01/24 03:44 36.4 C L 91 H 19 133/85 97 Room Air 01/31/24 23:42 36.4 C L 109 H 20 110/72 97 Room Air Laboratory Results 02/01/24 08:06 02/01/24 08:06 PG Care Time/CCT Total # of Minutes Spent Total Time Spent with Patient: Total time spent is greater than 50% in coordination of care (as documented) at patient's floor/unit and/or counseling patient: Coding Level of Care Code 57020 SUB INP/OBS CARE 3/50MIN Diagnoses LLL pneumonia J18.9 Pneumonia type: due to unspecified organism Acute hypoxemic respiratory failure J96.01 COPD with acute exacerbation J44.1 Gastroesophageal reflux disease, unspecified whether esophagitis present K21.9 Esophagitis presence: esophagitis presence not specified Presence of drug coated stent in left circumflex coronary artery Z95.5 Dyslipidemia, goal LDL below 70 E78.5 Type 2 diabetes mellitus E11.9 CAD (coronary artery disease) I25.10 Orthostasis I95.1 (1) LLL pneumonia Pneumonia type: due to unspecified organism Qualified Code(s): J18.9 - Pneumonia, unspecified organism (4) GERD (gastroesophageal reflux disease) Esophagitis presence: esophagitis presence not specified Qualified Code(s): K 21.9 - Gastro-esophageal reflux disease without esophagitis
--- NOTE | 2024-02-01 12:08 | Discharge Summary ---
Date of Service February 01, 2024 Admission HPI Per Admitting Provider The patient is a 63-year-old male with a past medical history including generalized weakness, pulmonary cachexia due to COPD, dyslipidemia, history of PE, delayed gastric emptying, chronic respiratory failure, non-small cell lung cancer, GERD, dyslipidemia, history of hematuria, history of UTI, hypertension, diabetes mellitus, STEMI 01/23, depression and severe COPD. Patient presents to the emergency department with 1 week of worsening wheezing, productive cough, shortness of breath and dyspnea on exertion. Chest x-ray and CT angiography of chest were negative for PE, but did show a left lingular and left lower lobe infiltrate. From emergency department patient received a DuoNeb, Solu-Medrol 112 5 mg IV, Zosyn 4.5 g IV, and normal saline 2 L bolus. He did require 4 L of nasal cannula oxygen, to reach pulse ox of 96% Principal Diagnosis Acute exacerbation COPD, left lower lobe pneumonia, acute on chronic hypoxic respiratory failure, orthostatic hypotension with multiple falls Discharge Exam General-alert and oriented x3, no fever, no chills HEENT-head atraumatic and normocephalic, pupils equal and reactive to light, extraocular muscles intact Neck-no lymphadenopathy or thyromegaly, trachea midline Chest-diminished breath sounds bilaterally. No wheezing or rhonchi. No inspiratory rales. Cardiac-regular rate and rhythm, normal S1 and S2 Abdomen-normal bowel sounds, no hepatosplenomegaly Extremities-no cyanosis, clubbing, or edema Skinmultiple ecchymotic areas noted on both upper extremities and in the left periorbital area Neuro-cranial nerves II through XII intact, motor and sensory function within normal limits, strength symmetrical with generalized weakness, no focal deficits Psych-normal affect, normal mood Discharge Data Allergies Allergy/AdvReac Type Severity Reaction Status Date / Time No Known Allergies Allergy Verified 01/20/24 22:55 Consultations 01/20/24 21:18 ED Decision to Admit Stat 01/21/24 10:47 Consult Palliative Care Routine Ordered Studies 01/20/24 18:43 CT angio chest PE protocol Stat 01/28/24 03:23 CT facial bones wo con Urgent CT head/brain wo con Urgent Hospital Course (1) LLL pneumonia: Present on admission. Now resolved with antibiotic therapy (2) Acute hypoxemic respiratory failure: Present on admission. Now resolved. He is on room air (3) COPD with acute exacerbation: Acute exacerbation present on admission. Now resolved. He is at his baseline (4) GERD (gastroesophageal reflux disease): Stable. Continue current medical management (5) Presence of drug coated stent in left circumflex coronary artery: Stable. Continue current medical management (6) Dyslipidemia, goal LDL below 70: Stable. Continue current medical management (7) Type 2 diabetes mellitus: ADA diet. Metformin was restarted todayJanuary 31. Sliding scale coverage as needed. (8) CAD (coronary artery disease): Stable. Continue current medical (9) Orthostasis: Could be causing his multiple falls. Vital signs are stable while supine however. Will follow Plan Discharge to [facility] todayJanuary 31 Total Time Total Time Spent Total Time Spent (In Minutes): 45 minutes Discharge Plan Discharge Items Patient Disposition: Transfer Correction Fac Reason For Visit: LLL PNEUMONIA Discharge Diagnosis: Left lower lobe pneumonia, acute exacerbation COPD, acute on chronic hypoxic respiratory failure, orthostatic hypotension with multiple falls Activity: Resume your previous activity Non-emergency contact: Primary Care Provider Call non-emergency contact if: your symptoms worsen Follow-up/Referrals: Leonarda Fernando DNP [Nurse Practitioner] - 02/11/24 12:00 pm Cody Ramirez, [Primary Care Provider] - Diet: Carb Consistent or DM2 and Heart Healthy Addtl Attending Provider Instructions: See primary care provider soon as possible after discharge from [facility] Pending Studies at Discharge: No Stand-Alone Forms: My Always Prepped Skilled Items Patient informed of condition?: Yes DNR: Yes Discharge Level of Care: Skilled Communicable Disease: No Discharge Prognosis: Stable Lines: None Urinary Catheter: No Medications and DC Order Prescriptions: New midodrine 10 mg Tablet 10 mg PO TID@0800,1200,1700 Qty: 30 0RF oxycodone [OxyContin] 10 mg Tablet,Oral Only,Ext.Rel.12 Hr 10 mg PO Q12 Qty: 14 0RF prednisone 20 mg Tablet 40 mg PO Q8H Qty: 30 0RF fludrocortisone 0.1 mg Tablet 0.1 mg PO QAM Qty: 10 0RF oxycodone 5 mg Tablet 5 mg PO Q4H PRN (Reason: SOB or pain) Qty: 14 0RF Continued (DME) lancets [OneTouch Delica Lancets] 30 gauge misc See Rx Instructions .Route Qty: 100 3RF Rx Instructions: use once daily azelastine 137 mcg (0.1 %) aerosol,spray 1 spray intranasal BID PRN (Reason: ALLERGIC RHINITIS) Qty: 90 5RF Patient Comments: USUALLY USES EVERY DAY Rx Instructions: USE 1 SPRAY INTRANASALLY TWICE A DAY NEEDED FOR ALLERGIC RHINITIS. ADMINISTER INTO EACH NOSTRIL. (DME) OneTouch Verio test strips Strip See Rx Instructions .Route Qty: 100 7RF Rx Instructions: test once daily. metformin 500 mg tablet 1,000 mg PO BID 90 Days Qty: 360 3RF Rx Instructions: with meals albuterol sulfate 2.5 mg /3 mL (0.083 %) solution for nebulization 2.5 mg inhalation Q4H PRN (Reason: COPD) Qty: 360 11RF ipratropium bromide 0.02 % solution 2.5 ml inhalation Q4H PRN (Reason: COPD) Qty: 300 11RF fluticasone furoate-vilanterol [Breo Ellipta] 200-25 mcg/dose blister with device 1 inh inhalation QAM Qty: 60 7RF duloxetine [Cymbalta] 60 mg capsule,delayed release(DR/EC) 60 mg PO QAM 30 Days Qty: 30 5RF gabapentin 600 mg tablet 600 mg PO TID 30 Days Qty: 90 5RF hydroxyzine HCl 25 mg tablet 25 mg PO HS PRN (Reason: insomnia) Qty: 90 0RF atorvastatin 80 mg tablet 80 mg PO QAM Qty: 90 3RF Rx Instructions: TAKE 1 TABLET BY MOUTH EVERY DAY roflumilast [Daliresp] 500 mcg tablet 500 mcg PO QAM Qty: 90 3RF omeprazole 40 mg capsule,delayed release(DR/EC) 40 mg PO QAM Qty: 90 3RF nitroglycerin [Nitrostat] 0.4 mg tablet, sublingual 0.4 mg sublingual PRN PRN (Reason: chest pain) Qty: 25 0RF lorazepam 0.5 mg tablet 0.5 mg PO Q6H PRN (Reason: anxiety or insomnia) Qty: 20 0RF (DME) Portable Oxygen E0431 Misc See Rx Instructions .MEDSUPPLY Qty: 1 0RF Rx Instructions: Oxygen 2 liters continuous via nasal cannula on exertion with portable concentrator. NOELLE 99 Incruse Ellipta 62.5 mcg/actuation blister with device 1 inh INH QPM Qty: 3 1RF Rx Instructions: 10 PM azithromycin 250 mg tablet 250 mg PO MOWEFR Qty: 36 3RF oxycodone 5 mg tablet 5 mg PO Q4H MDD 4 tabs PRN (Reason: dyspnea due to severe COPD) 21 Days Qty: 60 0RF aspirin [Adult Low Dose Aspirin] 81 mg tablet,delayed release (DR/EC) 81 mg PO QAM guaifenesin [Mucinex] 600 mg Tablet Extended Release 12hr 1,200 mg PO Q12 Qty: 30 0RF morphine 20 mg/5 mL (4 mg/mL) solution 2.5 mg PO .Q 3 HOURS PRN (Reason: dyspnea or air hunger) metoprolol succinate 50 mg tablet extended release 24 hr 50 mg PO DAILY tamsulosin 0.4 mg capsule 0.4 mg PO QAM Changed albuterol sulfate 90 mcg/actuation HFA aerosol inhaler 2 puff inhalation TID Qty: 18 3RF Discontinued prednisone 10 mg tablet See Rx Instructions PO .COMPLEX 7 Days Qty: 20 0RF Rx Instructions: orally 3 tabs daily for 3 days then 2 tabs daily for 3 days then resume 10mg per day; doxycycline hyclate 100 mg capsule 100 mg PO BID 7 Days Qty: 14 0RF Discharge Orders: Discharge Order (Routine); Ordered 02/01/24 Ordered By: Leonard Franklin/Other Patient Handouts: Managing Type 2 Diabetes Admission Data Admit Date/Time: 01/20/24 22:59 Attending Provider: Leonard Edwards Admit Provider: Kemar Pak Primary Care Provider: Cody Ramirez Other Providers: Kemar Pak; Leonarda Fernando; [facility],Home Healthcare; [facility],; [facility]; [facility],Health Coding Level of Care Code 11941 INP/OBS DISCH >30 MIN Diagnoses LLL pneumonia J18.9 Pneumonia type: due to unspecified organism Acute hypoxemic respiratory failure J96.01 COPD with acute exacerbation J44.1 Gastroesophageal reflux disease, unspecified whether esophagitis present K21.9 Esophagitis presence: esophagitis presence not specified Presence of drug coated stent in left circumflex coronary artery Z95.5 Dyslipidemia, goal LDL below 70 E78.5 Type 2 diabetes mellitus E11.9 CAD (coronary artery disease) I25.10 Orthostasis I95.1
[2024-02-01 12:12] VITALS: RESP 17; TEMP 97.3; O2SAT 96
[2024-02-01 14:51] VITALS: BP 98/66
[2024-02-01 15:06] VITALS: PULSE 108
== END 2024-02-01 15:40 | DRG 871 ==
LOC: ED 18:23 → SUATTDRO 22:59 → EDINP 22:59 → 2S 23:49

== ENCOUNTER 2024-02-12 15:17 | Inpatient (IN) ==
--- NOTE | 2024-02-12 15:36 | Emergency Department Note ---
Impression & Plan Acute dehydration, Diarrhea, Hypokalemia due to excessive gastrointestinal loss of potassium, Hypomagnesemia, Severe chronic obstructive pulmonary disease, Weakness ED Provider Note NAME: NATY PERRY AGE: 63 SEX: M : 1960 ARRIVES VIA: Ambulance INFORMANT: Patient, ED PROVIDER(S): John Cormier MD CHIEF COMPLAINT: Abdominal pain, diarrhea MEDICAL DECISION MAKING: Patient presented due to concern for tachycardia hypotension in setting of being confined at [facility] with associated diarrhea. IV was established and blood work was obtained. Patient was ordered 2 L of IV fluids. Sepsis protocols initiated with blood cultures patient did have a chest x-ray and CT abdomen pelvis as he did have left lower quadrant pain. Patient's blood work showed a normal white count hemoglobin and platelet count the patient's kidney function with a creatinine 0.7. Hypokalemia noted at 3. Mag was ordered. Initial lactate 1.6. Calcium low at 8.5. The patient was ordered magnesium and calcium for replete meant. Troponin not elevated. Procalcitonin not elevated. VBG without signs of acidosis urinalysis negative for blood or infection. Chest x-ray without obvious evidence of pneumonia. CT abdomen pelvis shows fluid-filled colon normal appendix no bowel wall thickening. Given the patient's initial hypotension which is since resolved and associated diarrheal illness do believe the patient would benefit from admission. I did speak with the on-call hospitalist service Dr. Snyder and the patient was admitted to the medicine service Discussion w/ other healthcare providers: None Prior /Outside records reviewed: None Differential diagnosis: Infection, dehydration, metabolic abnormality, hypo/hyperglycemia, electrolyte imbalance, anemia, UTI, pneumonia, thyroid dysfunction among others were considered. Diagnostics, as interpreted by me: ECG: Sinus tachycardia, rate 124, normal intervals, normal axis no ST elevations no significant change from comparison 05/21/2024 Cardiac monitoring: An order was placed for continuous cardiac monitoring. The monitor shows a rate of 112 with tachycardic and regular rhythm. Patient was placed on pulse oximetry Medical decision rules: None Imaging studies: I informally interpreted the patient's chest x-ray shows improvement in right lower lobe pneumoniawith formal report to follow. HPI: Patient presents from [facility] due to concern for retention and tachycardia. The patient states that he has had multiple bowel movements several times daily for the last several days states that he has had up to 6 today. Patient did complete a course of antibiotics for pneumonia while he was an inpatient. Patient denies any chest pain but does have shortness of breath which he states is chronic he does not wear oxygen at home. No falls or trauma. Patient does complain of some abdominal cramping. No reported blood in the stool. Patient does not believe that he has had antibiotics since the time of transfer to his rehab. PAST MEDICAL HISTORY: See Below PAST SURGICAL HISTORY: See Below SOCIAL HISTORY: See Below HOME MEDICATIONS: See Below ALLERGIES: See Below VITALS: See Below PHYSICAL EXAMINATION: GENERAL: Mildly ill but nontoxic in appearance. Disheveled. EYE EXAM: Normal conjunctiva. PERRL, no anisocoria and EOM's grossly intact w/o pain. OROPHARYNX: Dry mucus membranes, grossly normal dentition. NECK: Trachea midline, no stridor. LUNGS: Clear to auscultation. Normal chest wall mechanics. HEART: Tachycardic and regular, no MRG. ABDOMEN: Abdomen soft, mild diffuse discomfort with pain in the left lower quadrant, no masses, no rebound or guarding. BACK: No CVA TTP. SKIN: No rashes and no bruising. UPPER EXTREMITIES: Upper extremities are grossly normal. LOWER EXTREMITIES: Grossly normal, no edema. NEURO EXAM: A&O x3, cranial nerves II-XII grossly intact, normal speech, moves all 4 extremities. Past Med/Surg History Medical History Orthostasis Dyslipidemia, goal LDL below 70 Presence of drug coated stent in left circumflex coronary artery (01/2021) GERD (gastroesophageal reflux disease) Anxiety and depression Sleep disorder breathing Weakness generalized Pulmonary cachexia due to COPD Weight loss End stage COPD History of tachycardia 01/06/23, recently seen in the [place] ER for tachycardia. Pt stated the doctor increased his metoprolol to 75mg daily. History of home oxygen therapy "USED WHEN I FIRST HAD IT, NOW I DON'T THINK IT HELPS, SO I DON'T USE IT VERY OFTEN" Chronic obstructive pulmonary disease Emphysema lung Hyperlipidemia Prostate cancer 2021; RADIATION TREATMENT, NO SX. STEMI (ST elevation myocardial infarction) (01/2021) 2020, BROUGHT TO [place] ER-"HAVING PAIN AND DIDN'T FEEL WELL"; FOLLOWS W/ [place] [facility] BPH with elevated PSA CAD (coronary artery disease) S/p stent 2020 S/p YARA to LCx 01/15/2021 Type 2 diabetes mellitus Neuropathy Stomach ulcer HX -UNDER CONTROL GERD (gastroesophageal reflux disease) SOB (shortness of breath) on exertion Asthma Depression Anxiety Hypertension History of pulmonary embolus (PE) 2016-NO ISSUES SINCE H/O pneumothorax Severe chronic obstructive pulmonary disease Evaluated for lung transplant, pulmonary function not sufficiently low at this time History of lung cancer (2011) NON SMALL CELL LUNG CANCER - STAGE IV DX 2011-LEFT LOBE/NO SURGERY/RADIATION/CHEMO FEEDING TUBE PRESENT FOR 1.5 YEARS DURING THIS TIME Surgical History Hx of inguinal hernia surgery History of cardiac cath W/ X1 STENT- 2020- FOLLOWS W/ [place] [facility] S/P cystoscopy with ureteral stent placement S/P REMOVAL STENT ALSO History of prostate biopsy (01/01/22) History of colonoscopy History of esophagogastroduodenoscopy (EGD) History of vascular access device PORT PLACEMENT-UPPER LEFT IN PLACE-UNSURE OF TYPE OF PORT History of lung surgery STENT TO [id number]? S/P laparoscopic cholecystectomy Family History Mother Coronary heart disease Father , age 90 COPD (chronic obstructive pulmonary disease) Diabetes Aunt Cancer Uncle Diabetes Brother Hypertension Daughter No problems noted. Brother No problems noted. 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: No Beliefs That Will Affect Care: None marital status: Single marital status details: but has 1 daughter Current Living Situation: Alone Current Living Situation Comment: with help from brother current occupational status: employed and disabled current occupation: 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 How many Children do You have: 1 Feels Safe at Home: Yes Safety Concerns: Feels Safe At This Time Diet: regular caffeine: Yes (iced tea) during the past year weight has: remained stable Dental Care, Regularly: No Assistive Devices: Oxygen - Continuous Allergies Allergies Allergy/AdvReac Type Severity Reaction Status Date / Time No Known Allergies Allergy Verified 02/12/24 17:43 Home Meds Home Medications Medication Instructions Recorded Confirmed aspirin 81 mg tablet,delayed 81 mg PO QAM 01/08/23 02/12/24 release (Adult Low Dose Aspirin) tamsulosin 0.4 mg capsule 0.4 mg PO QAM 01/20/24 02/12/24 acetaminophen 325 mg tablet 650 mg PO Q6H PRN PAIN/FEVER 02/12/24 02/12/24 (Tylenol) albuterol sulfate 90 mcg/actuation 2 puff inhalation TIDM Shortness 02/12/24 02/12/24 aerosol inhaler Of Breath Or Wheezing atorvastatin 80 mg tablet 80 mg PO HS 02/12/24 02/12/24 azithromycin 250 mg tablet 250 mg PO 3XWK 02/12/24 02/12/24 ciprofloxacin HCl 250 mg tablet 250 mg PO Q12H 02/12/24 02/12/24 (Cipro) fludrocortisone 0.1 mg tablet 0.2 mg PO QAM 02/12/24 02/12/24 loperamide 2 mg tablet (Imodium 2 mg PO Q6H PRN Diarrhea 02/12/24 02/12/24 A-D) metformin 500 mg tablet 1,000 mg PO BIDM 02/12/24 02/12/24 metronidazole 500 mg tablet 500 mg PO TIDM 02/12/24 02/12/24 midodrine 10 mg tablet 10 mg PO TIDM 02/12/24 02/12/24 prednisone 20 mg tablet 20 mg PO DIRECTED 02/12/24 02/12/24 promethazine 25 mg/mL injection 12.5 mg IM Q6H PRN NAUSEA/VOMITING 02/12/24 02/12/24 solution sodium chloride 0.9 % 100 ml IV .HOURLY 02/12/24 02/12/24 Previous Rx's Medication Instructions Recorded lancets 30 gauge (OneJoséuch Tico #100 ea 07/11/21 Lancets) azelastine 137 mcg (0.1 %) nasal 1 spray intranasal BID PRN 08/21/22 spray aerosol ALLERGIC RHINITIS #90 mL Portable Oxygen E0431 #1 ea 10/13/22 umeclidinium 62.5 mcg/actuation 1 inh inhalation QPM #3 Inhalers 04/27/23 blister powder for inhalation (Incruse Ellipta) blood sugar diagnostic (OneTouch #100 ea 07/06/23 Verio test strips) guaifenesin 600 mg tablet, 1,200 mg (2 x 600 mg) PO Q12 #30 07/30/23 extended release 12 hr (Mucinex) tabs albuterol sulfate 2.5 mg/3 mL 2.5 mg (3 mL) inhalation Q4H PRN 08/24/23 (0.083 %) solution for nebulization COPD #360 mL ipratropium bromide 0.02 % 2.5 ml inhalation Q4H PRN COPD 08/24/23 solution for inhalation #300 mL Breo Ellipta 200 mcg-25 mcg/dose 1 inh inhalation QAM #60 ea 10/01/23 powder for inhalation (fluticasone furoate-vilanterol) duloxetine 60 mg capsule,delayed 60 mg PO QAM 30 days #30 caps 10/22/23 release (Cymbalta) gabapentin 600 mg tablet 600 mg PO TID 30 days #90 tabs 10/22/23 hydroxyzine HCl 25 mg tablet 25 mg PO HS PRN insomnia #90 tabs 11/05/23 roflumilast 500 mcg tablet 500 mcg PO QAM #90 tabs 12/23/23 (Daliresp) omeprazole 40 mg capsule,delayed 40 mg PO QAM #90 caps 12/24/23 release nitroglycerin 0.4 mg sublingual 0.4 mg sublingual PRN PRN chest 01/20/24 tablet (Nitrostat) pain #25 tabs lorazepam 0.5 mg tablet 0.5 mg PO Q6H PRN anxiety or 01/25/24 insomnia #20 tabs oxycodone 10 mg tablet,crush 10 mg PO Q12 #14 tabs 02/01/24 resistant,extended release 12 hr (OxyContin) oxycodone 5 mg tablet 5 mg PO Q4H PRN SOB or pain #14 02/01/24 tabs Results & Data (ED) Vital Signs Vital Signs - 24 hr 02/12/24 15:29 02/12/24 15:29 02/12/24 15:47 Temperature 36.6 C Temperature Source Oral Pulse Rate 130 H 126 H Pulse Rate [Apical] Pulse Rate from SpO2 Sensor 126 H Respiratory Rate 17 20 Respiratory Effort / Characteristics Respiratory Depth Respiratory Pattern Blood Pressure 87/67 L Blood Pressure [Left Arm] Blood Pressure Mean 73 Blood Pressure Mean [Left Arm] Pulse Oximetry 95 93 Oxygen Delivery Method Room Air Room Air Sepsis Recent Fever Within 48 Hours No Sepsis New/Unexplained Change in Mental Status No Sepsis Action Taken by Nursing Physician Notified 02/12/24 15:57 02/12/24 16:00 02/12/24 16:15 Temperature Temperature Source Pulse Rate 124 H Pulse Rate [Apical] Pulse Rate from SpO2 Sensor 123 H Respiratory Rate 23 Respiratory Effort / Characteristics Respiratory Depth Respiratory Pattern Blood Pressure 93/78 L 94/68 L Blood Pressure [Left Arm] Blood Pressure Mean 83 76 Blood Pressure Mean [Left Arm] Pulse Oximetry 94 Oxygen Delivery Method Room Air Sepsis Recent Fever Within 48 Hours Sepsis New/Unexplained Change in Mental Status Sepsis Action Taken by Nursing 02/12/24 16:25 02/12/24 16:30 02/12/24 17:01 Temperature Temperature Source Pulse Rate 126 H 109 H 105 H Pulse Rate [Apical] Pulse Rate from SpO2 Sensor 108 H Respiratory Rate 20 18 Respiratory Effort / Characteristics Respiratory Depth Respiratory Pattern Blood Pressure 112/73 108/72 Blood Pressure [Left Arm] Blood Pressure Mean 86 75 Blood Pressure Mean [Left Arm] Pulse Oximetry 97 95 Oxygen Delivery Method Sepsis Recent Fever Within 48 Hours Sepsis New/Unexplained Change in Mental Status Sepsis Action Taken by Nursing 02/12/24 17:50 02/12/24 17:51 02/12/24 18:00 Temperature Temperature Source Pulse Rate 102 H 105 H 105 H Pulse Rate [Apical] Pulse Rate from SpO2 Sensor 103 H 105 H Respiratory Rate 24 18 15 Respiratory Effort / Characteristics Respiratory Depth Respiratory Pattern Blood Pressure 134/88 134/88 140/90 Blood Pressure [Left Arm] Blood Pressure Mean 103 103 106 Blood Pressure Mean [Left Arm] Pulse Oximetry 99 99 98 Oxygen Delivery Method Room Air Sepsis Recent Fever Within 48 Hours Sepsis New/Unexplained Change in Mental Status Sepsis Action Taken by Nursing 02/12/24 18:15 02/12/24 18:30 02/12/24 19:48 Temperature Temperature Source Pulse Rate 102 H 101 H 107 H Pulse Rate [Apical] Pulse Rate from SpO2 Sensor 101 H 102 H Respiratory Rate 27 H 26 H Respiratory Effort / Characteristics Respiratory Depth Respiratory Pattern Blood Pressure 126/81 Blood Pressure [Left Arm] Blood Pressure Mean 96 Blood Pressure Mean [Left Arm] Pulse Oximetry 98 96 Oxygen Delivery Method Sepsis Recent Fever Within 48 Hours Sepsis New/Unexplained Change in Mental Status Sepsis Action Taken by Nursing 02/12/24 20:00 Temperature Temperature Source Pulse Rate Pulse Rate [Apical] 102 H Pulse Rate from SpO2 Sensor Respiratory Rate 18 Respiratory Effort / Characteristics Non-Labored Respiratory Depth Normal Respiratory Pattern Regular Blood Pressure Blood Pressure [Left Arm] 128/87 Blood Pressure Mean Blood Pressure Mean [Left Arm] 100 Pulse Oximetry 96 Oxygen Delivery Method Room Air Sepsis Recent Fever Within 48 Hours Sepsis New/Unexplained Change in Mental Status Sepsis Action Taken by [facility] Medications Current Medication List: was personally reviewed by me Laboratory Data Attestation: I reviewed the patient's lab results. 02/13/24 05:52 02/13/24 05:52 Lab Results 02/12/24 02/12/24 02/12/24 Range/Units 15:47 15:52 15:54 WBC 8.03 (4.8-10.8) K/ul RBC 5.15 (4.70-6.10) M/uL Hgb 14.4 (14.0-18.0) g/dl POC Hgb 14.6 (14.0-18.0) g/dl Hct 44.1 (42.0-52.0) % POC Hct 43 (42-52) % MCV 85.6 (80.0-100.0) fL MCH 28.0 (25.0-34.0) pg MCHC 32.7 (32.0-36.0) g/dL RDW Std Deviation 55.1 H (36.4-46.3) fL RDW Coeff of Estela 18.1 H (11.5-14.5) % Plt Count 166 (130-400) K/uL MPV 9.9 (9.4-12.4) fL Immature Gran % (Auto) 0.6 % Neut % (Auto) 96.2 % Lymph % (Auto) 1.7 % Doddridge % (Auto) 1.4 % Eos % (Auto) 0.1 % Baso % (Auto) 0.0 % Neut # (Auto) 7.72 H (1.40-6.50) K/uL Lymph # (Auto) 0.14 L (1.20-3.40) K/uL Doddridge # (Auto) 0.11 (0.11-0.59) K/uL Eos # (Auto) 0.01 (0.00-0.50) K/uL Baso # (Auto) 0.00 (0.00-0.20) K/uL Immature Gran # (Auto) 0.05 (0.01-0.20) K/uL PT 10.9 (9.0-12.0) Seconds INR 1.0 (0.9-1.1) APTT 26 (21-31) Seconds PTT Ratio 1.0 VBG pH (7.36-7.41) VBG pCO2 (38-50) mmHg VBG pO2 mmHg VBG HCO3 mmol/L VBG O2 Saturation % VBG Base Excess mEq/L POC Sodium 141 (135-144) mmol/L Sodium 142 (136-145) mmol/L POC Potassium 2.9 L (3.3-5.0) mmol/L Potassium 3.0 L (3.5-5.1) mmol/L POC Chloride 102 (101-112) mmol/L Chloride 106 (98-107) mmol/L Carbon Dioxide 23 (21-32) mmol/L POC Total CO2 21 L (24-31) mmol/L Anion Gap 13 H (3-11) POC Anion Gap 22.0 (16-25) mmol/L POC BUN 5 L (7-18) mg/dl BUN 7 (6-23) mg/dl Creatinine 0.71 (0.6-1.4) mg/dl POC Creatinine 0.7 (0.6-1.3) mg/dl Est Cr Clr Drug Dosing 99.7 ml/min Est GFR ( Amer) 115.7 ml/min Est GFR (Non-Af Amer) 99.9 ml/min BUN/Creatinine Ratio 9.9 L (10-20) Glucose 190 H (70-99(Fasting)) mg/dl POC Glucose (other) 187 H (70-99) mg/dl Lactate 1.6 (0.4-2.0) mmol/L Calcium 8.5 L (8.6-10.3) mg/dl POC Ioniz Calcium Alona 1.11 L (1.12-1.32) mmol/l Magnesium 1.6 L (1.7-2.4) mg/dl Total Bilirubin 0.9 (0.2-1.0) mg/dl Direct Bilirubin 0.2 (0-0.2) mg/dl AST 24 (13-39) U/L ALT 25 (7-52) U/L Alkaline Phosphatase 74 (34-104) U/L Troponin I High Sens 14.9 (0-20) pg/ml Total Protein 5.8 L D (6.0-8.3) gm/dl Albumin 3.5 (3.4-5.0) gm/dl Procalcitonin 0.09 (0-0.5) ng/ml Urine Color Urine Appearance (Clear) Urine pH (4.5-7.5) Ur Specific Anthony (1.000-1.030) Urine Protein (Negative) Urine Glucose (UA) (Negative) Urine Ketones (Negative) Urine Blood (Negative) Urine Nitrite (Negative) Urine Bilirubin (Negative) Urine Urobilinogen (Negative) Ur Leukocyte Esterase (Negative) 02/12/24 02/12/24 Range/Units 16:28 19:23 WBC (4.8-10.8) K/ul RBC (4.70-6.10) M/uL Hgb (14.0-18.0) g/dl POC Hgb (14.0-18.0) g/dl Hct (42.0-52.0) % POC Hct (42-52) % MCV (80.0-100.0) fL MCH (25.0-34.0) pg MCHC (32.0-36.0) g/dL RDW Std Deviation (36.4-46.3) fL RDW Coeff of Estela (11.5-14.5) % Plt Count (130-400) K/uL MPV (9.4-12.4) fL Immature Gran % (Auto) % Neut % (Auto) % Lymph % (Auto) % Doddridge % (Auto) % Eos % (Auto) % Baso % (Auto) % Neut # (Auto) (1.40-6.50) K/uL Lymph # (Auto) (1.20-3.40) K/uL Doddridge # (Auto) (0.11-0.59) K/uL Eos # (Auto) (0.00-0.50) K/uL Baso # (Auto) (0.00-0.20) K/uL Immature Gran # (Auto) (0.01-0.20) K/uL PT (9.0-12.0) Seconds INR (0.9-1.1) APTT (21-31) Seconds PTT Ratio VBG pH 7.38 (7.36-7.41) VBG pCO2 40 (38-50) mmHg VBG pO2 26 mmHg VBG HCO3 24 mmol/L VBG O2 Saturation < 60.0 % VBG Base Excess -1.3 mEq/L POC Sodium (135-144) mmol/L Sodium (136-145) mmol/L POC Potassium (3.3-5.0) mmol/L Potassium (3.5-5.1) mmol/L POC Chloride (101-112) mmol/L Chloride (98-107) mmol/L Carbon Dioxide (21-32) mmol/L POC Total CO2 (24-31) mmol/L Anion Gap (3-11) POC Anion Gap (16-25) mmol/L POC BUN (7-18) mg/dl BUN (6-23) mg/dl Creatinine (0.6-1.4) mg/dl POC Creatinine (0.6-1.3) mg/dl Est Cr Clr Drug Dosing ml/min Est GFR ( Amer) ml/min Est GFR (Non-Af Amer) ml/min BUN/Creatinine Ratio (10-20) Glucose (70-99(Fasting)) mg/dl POC Glucose (other) (70-99) mg/dl Lactate (0.4-2.0) mmol/L Calcium (8.6-10.3) mg/dl POC Ioniz Calcium Alona (1.12-1.32) mmol/l Magnesium (1.7-2.4) mg/dl Total Bilirubin (0.2-1.0) mg/dl Direct Bilirubin (0-0.2) mg/dl AST (13-39) U/L ALT (7-52) U/L Alkaline Phosphatase (34-104) U/L Troponin I High Sens (0-20) pg/ml Total Protein (6.0-8.3) gm/dl Albumin (3.4-5.0) gm/dl Procalcitonin (0-0.5) ng/ml Urine Color Yellow Urine Appearance Clear (Clear) Urine pH 5.5 (4.5-7.5) Ur Specific Anthony 1.033 H (1.000-1.030) Urine Protein Negative (Negative) Urine Glucose (UA) Negative (Negative) Urine Ketones 2+ H (Negative) Urine Blood Negative (Negative) Urine Nitrite Negative (Negative) Urine Bilirubin Negative (Negative) Urine Urobilinogen Negative (Negative) Ur Leukocyte Esterase Negative (Negative) Administered Medications Acetaminophen (Acetaminophen 325 Mg Tab) 650 mg PO Q6H PRN PRN Reason: Pain or Fever Stop: 03/13/24 22:23 Last Admin: 02/13/24 02:06 Dose: 650 mg Documented By: ARNULFO Albuterol (Albuterol Hfa 8 Gm Inhaler) 2 puffs INH TIDM [facility] Stop: 03/14/24 07:59 Last Admin: 02/13/24 07:16 Dose: 2 puffs Documented By: JOSELITO Aspirin (Aspirin 81 Mg Ectab) 81 [facility] Stop: 03/14/24 08:59 Last Admin: 02/13/24 09:05 Dose: 81 mg Documented By: RUSSELL Atorvastatin Calcium (Atorvastatin 40 Mg Tab) 80 mg PO HS [facility] Stop: 03/13/24 22:23 Last Admin: 02/12/24 23:20 Dose: 80 mg Documented By: ARNULFO Farnsworth Syrup (Farnsworth Syrup 5 Ml Udp) 5 ml PO Q6 [facility] Stop: 02/23/24 05:59 Last Admin: 02/13/24 05:54 Dose: 5 ml Documented By: ARNULFO Duloxetine HCl (Duloxetine Hcl 60 Mg Cap) 60 mg [facility]AR[facility] Stop: 03/14/24 08:59 Last Admin: 02/13/24 09:05 Dose: 60 mg Documented By: RUSSELL Enoxaparin Sodium (Enoxaparin Inj 40 Mg/0.4 Ml Syr) 40 mg SQ PM [facility] Stop: 03/13/24 22:23 Last Admin: 02/12/24 23:58 Dose: 40 mg Documented By: ARNULFO Fludrocortisone Acetate (Fludrocortisone Acetate 0.1 Mg Tab) 0.2 mg PO [facility] Stop: 03/14/24 08:59 Last Admin: 02/13/24 09:05 Dose: 0.2 mg Documented By: RUSSELL Fluticasone/Vilanterol (Fluticasone/Vilanterol 200/25mcg 14 Puffs/Inhaler) 1 puffs INH QAM [facility] Stop: 03/14/24 08:59 Last Admin: 02/13/24 09:04 Dose: 1 puffs Documented By: RUSSELL Gabapentin (Gabapentin 600 Mg Tab) 600 mg PO TID IMAN Stop: 03/13/24 22:23 Last Admin: 02/13/24 09:05 Dose: 600 mg Documented By: Admin: 02/12/24 23:20 Dose: 600 mg Documented By: ARNULFO Lactated Ringer's (Lr) 1,000 mls @ 125 mls/hr IV .Q8H [facility] Stop: 03/14/24 07:29 Last Admin: 02/13/24 09:03 Dose: 125 mls/hr Documented By: RUSSELL Potassium Chloride (K Roland / Wtr) 10 meq in 100 mls @ 100 mls/hr IV Q1H [facility] Stop: 02/13/24 12:59 Last Admin: 02/13/24 12:07 Dose: 100 mls/hr Documented By: Infusion: 02/13/24 12:06 Dose: Infused Documented By: Admin: 02/13/24 11:06 Dose: 100 mls/hr Documented By: RUSSELL Lorazepam (Lorazepam 0.5 Mg Tab) 0.5 mg PO Q6H PRN PRN Reason: anxiety or insomnia Stop: 03/13/24 22:23 Last Admin: 02/12/24 23:59 Dose: 0.5 mg Documented By: ARNULFO Midodrine (Midodrine Hcl 10 Mg Tab) 10 mg PO TIDM IM[facility] Stop: 03/14/24 07:59 Last Admin: 02/13/24 11:31 Dose: 10 mg Documented By: Admin: 02/13/24 09:05 Dose: 10 mg Documented By: RUSSELL Ondansetron HCl (Ondansetron Inj 2 Mg/Ml 2 Ml Vial) 4 mg IV Q6H PRN PRN Reason: Nausea Stop: 03/13/24 22:23 Last Admin: 02/13/24 06:00 Dose: 4 mg Documented By: ARNULFO Oxycodone HCl (Oxycodone Hcl Ir 5 Mg Tab (Immediate Release)) 5 mg PO Q4H PRN PRN Reason: Moderate Pain (Scale 4, 5, 6) Stop: 02/26/24 22:23 Last Admin: 02/13/24 11:10 Dose: 5 mg Documented By: Admin: 02/13/24 02:06 Dose: 5 mg Documented By: ARNULFO Oxycodone HCl (Oxycodone Hcl 10 Mg Tabcr (Oxycontin)) 10 mg PO Q12 [facility] Stop: 02/26/24 22:23 Last Admin: 02/13/24 09:08 Dose: 10 mg Documented By: Admin: 02/12/24 22:53 Dose: 10 mg Documented By: ARNULFO Pantoprazole Sodium (Pantoprazole 40 Mg Tab) 40 mg PO QAM [facility] Stop: 03/14/24 08:59 Last Admin: 02/13/24 09:05 Dose: 40 mg Documented By: RUSSELL Prochlorperazine (Prochlorperazine Maleate 10 Mg Tab) 10 mg PO Q6H [facility] Stop: 03/14/24 09:59 Last Admin: 02/13/24 11:31 Dose: 10 mg Documented By: RUSSELL Roflumilast (Roflumilast 500 Mcg Tab) 500 mcg PO QAM [facility] Stop: 03/14/24 08:59 Last Admin: 02/13/24 09:05 Dose: 500 mcg Documented By: RUSSELL Tamsulosin HCl (Tamsulosin Hcl 0.4 Mg Cap) 0.4 mg PO QAM [facility] Stop: 03/14/24 08:59 Last Admin: 02/13/24 09:05 Dose: 0.4 mg Documented By: RUSSELL Umeclidinium Keyes (Umeclidinium Keyes 62.5mcg/Blister 7 Puffs/Inhaler) 1 puffs INH QPM IM[facility] Stop: 03/13/24 22:23 Last Admin: 02/12/24 23:21 Dose: 1 puffs Documented By: ARNULFO Vancomycin HCl (Vancomycin Hcl 125 Mg/2.5ml Soln) 125 mg PO Q6 IM[facility] Stop: 02/23/24 05:59 Last Admin: 02/13/24 05:54 Dose: 125 mg Documented By: ARNULFO Discontinued Medications Farnsworth Syrup (Farnsworth Syrup 5 Ml Udp) 5 ml PO ONE STA Stop: 02/12/24 19:57 Last Admin: 02/12/24 21:06 Dose: 5 ml Documented By: DES Sodium Chloride (Nss) 1,000 mls @ 999 mls/hr IV .Q1H1M ONE Stop: 02/12/24 16:35 Last Infusion: 02/12/24 17:10 Dose: Infused Documented By: Admin: 02/12/24 16:09 Dose: 999 mls/hr Documented By: LY Sodium Chloride (Nss) 1,000 mls @ 999 mls/hr IV .Q1H1M ONE Stop: 02/12/24 16:47 Last Infusion: 02/12/24 17:15 Dose: Infused Documented By: Admin: 02/12/24 16:09 Dose: 999 mls/hr Documented By: LY Sodium Chloride (Nss) 1,000 mls @ 999 mls/hr IV .Q1H1M ONE Stop: 02/12/24 18:20 Last Infusion: 02/12/24 19:26 Dose: Infused Documented By: Admin: 02/12/24 17:50 Dose: 999 mls/hr Documented By: LEON Magnesium Sulfate/Dextrose (Magnesium Sulfate / D5w) 1 gm in 100 mls @ 50 mls/hr IV Q2H IMAN Stop: 02/12/24 23:59 Last Infusion: 02/13/24 01:40 Dose: Infused Documented By: Admin: 02/12/24 23:23 Dose: 50 mls/hr Documented By: Infusion: 02/12/24 23:05 Dose: Infused Documented By: Admin: 02/12/24 21:05 Dose: 50 mls/hr Documented By: DES Potassium Chloride/Sodium Chloride (Normal Saline W/20 Meq Kcl) 20 meq in 1,000 mls @ 125 mls/hr IV .Q8H IMAN; Protocol Stop: 02/13/24 11:59 Last Infusion: 02/13/24 09:17 Dose: Infused Documented By: Admin: 02/13/24 05:54 Dose: 125 mls/hr Documented By: Infusion: 02/13/24 05:04 Dose: Infused Documented By: Admin: 02/12/24 21:04 Dose: 125 mls/hr Documented By: DES Ioversol (Optiray 320 100ml) 94 ml IV ONCE ONE Stop: 02/12/24 17:15 Last Admin: 02/12/24 17:14 Dose: 94 ml Documented By: MARGY Potassium Chloride (Potassium Chloride Crtab 20 Meq Tabcr) 40 meq PO NOW STA Stop: 02/13/24 10:49 Last Admin: 02/13/24 11:06 Dose: 40 meq Documented By: RUSSELL Vancomycin HCl (Vancomycin Hcl 125 Mg/2.5ml Soln) 125 mg PO ONE STA Stop: 02/12/24 19:57 Last Admin: 02/12/24 21:06 Dose: 125 mg Documented By: DES Imaging Data Radiologist's Impression: Chest X-Ray 02/12/24 15:34 XR chest 1V portable CLINICAL HISTORY: Sepsis TECHNIQUE: Single frontal radiograph of the chest was obtained. Comparison: Comparison is made to chest radiograph 01/20/2024 FINDINGS: A port catheter is seen. The cardiomediastinal silhouette is normal. The lungs are clear. No evidence of pleural effusion or pneumothorax. IMPRESSION: Interval resolution of previously noted pneumonia. ACT 112: Negative or not required by law. Electronically signed by: Antonio Messina M.D. 02/12/2024 4:12 PM Chest X-Ray 02/12/24 15:34 XR chest 1V portable CLINICAL HISTORY: Sepsis TECHNIQUE: Single frontal radiograph of the chest was obtained. Comparison: Comparison is made to chest radiograph 01/20/2024 FINDINGS: A port catheter is seen. The cardiomediastinal silhouette is normal. The lungs are clear. No evidence of pleural effusion or pneumothorax. IMPRESSION: Interval resolution of previously noted pneumonia. ACT 112: Negative or not required by law. Electronically signed by: Antonio Messina M.D. 02/12/2024 4:12 PM Abdomen/Pelvis CT 02/12/24 16:53 CT OF THE ABDOMEN AND PELVIS WITHOUT CONTRAST CLINICAL HISTORY: Left lower quadrant pain. COMPARISON STUDY: CT of the abdomen and pelvis June 21, 2023. MRI of the abdomen June 22, 2023. TECHNIQUE: Axial images of the abdomen and pelvis were obtained without IV contrast. IV within the right lower extremity infiltrated following contrast administration. The patient's nurse was notified of the extravasation. Images were reviewed in the axial, sagittal, and coronal planes. Automated exposure control was utilized for the study. A dose lowering technique was utilized adhering to the principles of ALARA. FINDINGS: Emphysema is incidentally noted with low lung. Biliary ductal dilatation is similar to prior exam and likely related to cholecystectomy. Spleen, adrenal glands and pancreas are unremarkable. There is no hydronephrosis. No pelvicalyceal, ureteral or bladder filling defects are identified. Sensitivity for detection of urinary calculi is significantly diminished given excreted contrast. Fiducial markers within the prostate are present. No abdominal or pelvic lymphadenopathy. There is no evidence for a bowel obstruction. The colon is mildly fluid-filled. The appendix is normal. No acute fractures are identified within the visualized skeletal structures. IMPRESSION: 1. Fluid-filled colon. This could indicate a diarrheal state. 2. No evidence for a bowel obstruction. Normal appendix. No bowel wall thickening identified. ACT 112: Negative or not required by law. Electronically signed by: Hansel Lopze M.D. 02/12/2024 5:54 PM Discharge Plan Visit Data Chief Complaint: Tachycardia ED Provider: John Cormier Discharge Problem: Acute dehydration, Diarrhea, Hypokalemia due to excessive gastrointestinal loss of potassium, Hypomagnesemia, Severe chronic obstructive pulmonary disease, Weakness Patient Disposition: Admitted As Inpatient Discharge Instructions Interventions: ED Discharge Assessment Last Done: 02/12/24 21:51 Discharge Problem: Diarrhea Qualifiers: Diarrhea type: unspecified type Qualified Code(s): R19.7 - Diarrhea, unspecified
[2024-02-12 16:07] LABS: iSTAT Creatinine 0.7 mg/dl (0.6-1.3); iSTAT Hemoglobin 14.6 g/dl (14.0-18.0); iSTAT Ionized Calcium 1.11 mmol/l (1.12-1.32); iSTAT Potassium 2.9 mmol/L (3.3-5.0)
[2024-02-12] MEDS: SODIUM CHLORIDE 0.9% 1,000 ML IV ONE ×3 (16:09→17:50)
--- NOTE | 2024-02-12 16:13 | XRay Report ---
XR chest 1V portable CLINICAL HISTORY: Sepsis TECHNIQUE: Single frontal radiograph of the chest was obtained. Comparison: Comparison is made to chest radiograph 01/20/2024 FINDINGS: A port catheter is seen. The cardiomediastinal silhouette is normal. The lungs are clear. No evidence of pleural effusion or pneumothorax. IMPRESSION: Interval resolution of previously noted pneumonia. ACT 112: Negative or not required by law. Electronically signed by: Antonio Messina M.D. 02/12/2024 4:12 PM
[2024-02-12 16:14] LABS: Hematocrit (blood only) 44.1 % (42.0-52.0); Hemoglobin 14.4 g/dl (14.0-18.0); Mean Corpuscular Hgb Conc 32.7 g/dL (32.0-36.0); Mean Corpuscular Volume 85.6 fL (80.0-100.0); Mean Platelet Volume 9.9 fL (9.4-12.4); Platelet Count 166 K/uL (130-400); RDW Coefficient of Variation 18.1 % (11.5-14.5); RDW Standard Deviation 55.1 fL (36.4-46.3); Red Blood Count 5.15 M/uL (4.70-6.10); White Blood Count 8.03 K/ul (4.8-10.8)
[2024-02-12 16:27] LABS: Partial Thromboplastin Time 26 Seconds (21-31); Prothrombin Time 10.9 Seconds (9.0-12.0)
[2024-02-12 16:34] LABS: Base Excess VBG -1.3 mEq/L; HCO3 VBG 24 mmol/L; Oxygen Saturation VBG < 60.0 %; PCO2 VBG 40 mmHg (38-50); PO2 VBG 26 mmHg; pH VBG 7.38 (7.36-7.41)
[2024-02-12 16:36] LABS: Eosinophils # (auto) 0.01 K/uL (0.00-0.50); Eosinophils % (auto) 0.1 %; Immature Granulocytes # (auto) 0.05 K/uL (0.01-0.20); Immature Granulocytes % (auto) 0.6 %; Lymphocytes # (auto) 0.14 K/uL (1.20-3.40); Lymphocytes % (auto) 1.7 %; Monocytes # (auto) 0.11 K/uL (0.11-0.59); Monocytes % (auto) 1.4 %; Neutrophils # (auto) 7.72 K/uL (1.40-6.50); Neutrophils % (auto) 96.2 %
[2024-02-12 16:53] LABS: Albumin Level 3.5 gm/dl (3.4-5.0); BUN Creatinine Ratio 9.9 (10-20); Bilirubin Direct 0.2 mg/dl (0-0.2); Bilirubin,Total 0.9 mg/dl (0.2-1.0); Calcium 8.5 mg/dl (8.6-10.3); Creatinine Clr Calc Pharmacy 99.7 ml/min; Est GFR (African American) 115.7 ml/min; Est GFR (Non-African American) 99.9 ml/min; Magnesium 1.6 mg/dl (1.7-2.4); Total Protein 5.8 gm/dl (6.0-8.3); Troponin I High Sensitivity 14.9 pg/ml (0-20)
[2024-02-12] MEDS: OPTIRAY 320 100ml IV ONE (17:14)
--- NOTE | 2024-02-12 17:56 | CT Scan Report ---
CT OF THE ABDOMEN AND PELVIS WITHOUT CONTRAST CLINICAL HISTORY: Left lower quadrant pain. COMPARISON STUDY: CT of the abdomen and pelvis June 21, 2023. MRI of the abdomen June 22, 2023. TECHNIQUE: Axial images of the abdomen and pelvis were obtained without IV contrast. IV within the ri ght lower extremity infiltrated following contrast administration. The patient's nurse was notified o f the extravasation. Images were reviewed in the axial, sagittal, and coronal planes. Automated expo sure control was utilized for the study. A dose lowering technique was utilized adhering to the prin ciples of JAE. FINDINGS: Emphysema is incidentally noted with low lung. Biliary ductal dilatation is similar to prio r exam and likely related to cholecystectomy. Spleen, adrenal glands and pancreas are unremarkable. T here is no hydronephrosis. No pelvicalyceal, ureteral or bladder filling defects are identified. Sens itivity for detection of urinary calculi is significantly diminished given excreted contrast. Fiducia l markers within the prostate are present. No abdominal or pelvic lymphadenopathy. There is no eviden ce for a bowel obstruction. The colon is mildly fluid-filled. The appendix is normal. No acute fractu res are identified within the visualized skeletal structures. IMPRESSION: 1. Fluid-filled colon. This could indicate a diarrheal state. 2. No evidence for a bowel obstruction. Normal appendix. No bowel wall thickening identified. ACT 112: Negative or not required by law. Electronically signed by: Hansel Lopez M.D. 02/12/2024 5:54 PM
[2024-02-12 19:43] LABS: Appearance Urine Clear (Clear); Bilirubin Urine Negative (Negative); Blood Urine Negative (Negative); Color Urine Yellow; Glucose Urine UA Negative (Negative); Ketones Urine 2+ (Negative); Leukocyte Esterase Urine Negative (Negative); Nitrite Urine Negative (Negative); Protein Urine Negative (Negative); Specific Gravity Urine 1.033 (1.000-1.030); Urobilinogen Urine Negative (Negative); pH Urine 5.5 (4.5-7.5)
--- NOTE | 2024-02-12 20:10 | History & Physical Report ---
Date of Service February 12, 2024 Assessment & Plan (1) Diarrhea: (2) Hypokalemia due to excessive gastrointestinal loss of potassium: (3) Hypomagnesemia: (4) Weakness: (5) Prostate cancer: (6) Severe chronic obstructive pulmonary disease: (7) History of lung cancer: Plan Diarrhea- Presumptively due to C. difficile colitis Hold Cipro and Flagyl Start vancomycin NPO Causing low magnesium and low potassium Causing dehydration Dehydration/low magnesium/low potassium- Status post 3 L normal saline bolus in the ED Give magnesium sulfate 2 g IV Placed on NSS + KCl 20 mEq at 125 MLS per hour x 2 L Repeat laboratories in a.m. Severe COPD/history of lung cancer- Continue usual inhalers Diabetes mellitus- Hold metformin Glucose 190 on admission Placed on Accu-Cheks with NovoLog SSI History of Present Illness Chief Complaint: The patient presents to the emergency department with complaint of ongoing diarrhea after having completed antibiotics for recent pneumonia. 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 The patient presents to the emergency department due to persistent diarrhea, having anywhere from 6-10 bowel movements daily since having completed his course of antibiotics for recent pneumonia. Most recent admission to [facility] was from 01/19-02/01/2024 for acute on chronic respiratory failure with pneumonia, and he reports that those symptoms have resolved. He presently is on Cipro and Flagyl Allergies Allergy/AdvReac Type Severity Reaction Status Date / Time No Known Allergies Allergy Verified 02/12/24 17:43 Home Medications Medication Instructions Recorded Confirmed Type lancets 30 gauge (OneTouch Delica #100 ea 07/11/21 12/29/23 Rx Lancets) azelastine 137 mcg (0.1 %) nasal 1 spray intranasal BID PRN 08/21/22 02/12/24 Rx spray aerosol ALLERGIC RHINITIS #90 mL Portable Oxygen E0431 #1 ea 10/13/22 12/29/23 Rx aspirin 81 mg tablet,delayed 81 mg PO QAM 01/08/23 02/12/24 History release (Adult Low Dose Aspirin) umeclidinium 62.5 mcg/actuation 1 inh inhalation QPM #3 Inhalers 04/27/23 02/12/24 Rx blister powder for inhalation (Incruse Ellipta) blood sugar diagnostic (OneTouch #100 ea 07/06/23 12/29/23 Rx Verio test strips) guaifenesin 600 mg tablet, 1,200 mg (2 x 600 mg) PO Q12 #30 07/30/23 02/12/24 Rx extended release 12 hr (Mucinex) tabs albuterol sulfate 2.5 mg/3 mL 2.5 mg (3 mL) inhalation Q4H PRN 08/24/23 02/12/24 Rx (0.083 %) solution for nebulization COPD #360 mL ipratropium bromide 0.02 % 2.5 ml inhalation Q4H PRN COPD 08/24/23 02/12/24 Rx solution for inhalation #300 mL Breo Ellipta 200 mcg-25 mcg/dose 1 inh inhalation QAM #60 ea 10/01/23 02/12/24 Rx powder for inhalation (fluticasone furoate-vilanterol) duloxetine 60 mg capsule,delayed 60 mg PO QAM 30 days #30 caps 10/22/23 02/12/24 Rx release (Cymbalta) gabapentin 600 mg tablet 600 mg PO TID 30 days #90 tabs 10/22/23 02/12/24 Rx hydroxyzine HCl 25 mg tablet 25 mg PO HS PRN insomnia #90 tabs 11/05/23 02/12/24 Rx roflumilast 500 mcg tablet 500 mcg PO QAM #90 tabs 12/23/23 02/12/24 Rx (Daliresp) omeprazole 40 mg capsule,delayed 40 mg PO QAM #90 caps 12/24/23 02/12/24 Rx release nitroglycerin 0.4 mg sublingual 0.4 mg sublingual PRN PRN chest 01/20/24 02/12/24 Rx tablet (Nitrostat) pain #25 tabs tamsulosin 0.4 mg capsule 0.4 mg PO QAM 01/20/24 02/12/24 History lorazepam 0.5 mg tablet 0.5 mg PO Q6H PRN anxiety or 01/25/24 02/12/24 Rx insomnia #20 tabs oxycodone 10 mg tablet,crush 10 mg PO Q12 #14 tabs 02/01/24 02/12/24 Rx resistant,extended release 12 hr (OxyContin) oxycodone 5 mg tablet 5 mg PO Q4H PRN SOB or pain #14 02/01/24 02/12/24 Rx tabs acetaminophen 325 mg tablet 650 mg PO Q6H PRN PAIN/FEVER 02/12/24 02/12/24 History (Tylenol) albuterol sulfate 90 mcg/actuation 2 puff inhalation TIDM Shortness 02/12/24 02/12/24 History aerosol inhaler Of Breath Or Wheezing atorvastatin 80 mg tablet 80 mg PO HS 02/12/24 02/12/24 History azithromycin 250 mg tablet 250 mg PO 3XWK 02/12/24 02/12/24 History ciprofloxacin HCl 250 mg tablet 250 mg PO Q12H 02/12/24 02/12/24 History (Cipro) fludrocortisone 0.1 mg tablet 0.2 mg PO QAM 02/12/24 02/12/24 History loperamide 2 mg tablet (Imodium 2 mg PO Q6H PRN Diarrhea 02/12/24 02/12/24 History A-D) metformin 500 mg tablet 1,000 mg PO BIDM 02/12/24 02/12/24 History metronidazole 500 mg tablet 500 mg PO TIDM 02/12/24 02/12/24 History midodrine 10 mg tablet 10 mg PO TIDM 02/12/24 02/12/24 History prednisone 20 mg tablet 20 mg PO DIRECTED 02/12/24 02/12/24 History promethazine 25 mg/mL injection 12.5 mg IM Q6H PRN NAUSEA/VOMITING 02/12/24 02/12/24 History solution sodium chloride 0.9 % 100 ml IV .HOURLY 02/12/24 02/12/24 History Past Med/Surg History Medical History Orthostasis Dyslipidemia, goal LDL below 70 Presence of drug coated stent in left circumflex coronary artery (01/2021) GERD (gastroesophageal reflux disease) Anxiety and depression Sleep disorder breathing Weakness generalized Pulmonary cachexia due to COPD Weight loss End stage COPD History of tachycardia 01/06/23, recently seen in the [place] ER for tachycardia. Pt stated the doctor increased his metoprolol to 75mg daily. History of home oxygen therapy "USED WHEN I FIRST HAD IT, NOW I DON'T THINK IT HELPS, SO I DON'T USE IT VERY OFTEN" Chronic obstructive pulmonary disease Emphysema lung Hyperlipidemia Prostate cancer 2021; RADIATION TREATMENT, NO SX. STEMI (ST elevation myocardial infarction) (01/2021) 2020, BROUGHT TO [place] ER-"HAVING PAIN AND DIDN'T FEEL WELL"; FOLLOWS W/ [place] [facility] BPH with elevated PSA CAD (coronary artery disease) S/p stent 2020 S/p YARA to LCx 01/15/2021 Type 2 diabetes mellitus Neuropathy Stomach ulcer HX -UNDER CONTROL GERD (gastroesophageal reflux disease) SOB (shortness of breath) on exertion Asthma Depression Anxiety Hypertension History of pulmonary embolus (PE) 2016-NO ISSUES SINCE H/O pneumothorax Severe chronic obstructive pulmonary disease Evaluated for lung transplant, pulmonary function not sufficiently low at this time History of lung cancer (2011) NON SMALL CELL LUNG CANCER - STAGE IV DX 2011-LEFT LOBE/NO SURGERY/RADIATION/CHEMO FEEDING TUBE PRESENT FOR 1.5 YEARS DURING THIS TIME Surgical History Hx of inguinal hernia surgery History of cardiac cath W/ X1 STENT- 2020- FOLLOWS W/ [place] [facility] S/P cystoscopy with ureteral stent placement S/P REMOVAL STENT ALSO History of prostate biopsy (01/01/22) History of colonoscopy History of esophagogastroduodenoscopy (EGD) History of vascular access device PORT PLACEMENT-UPPER LEFT IN PLACE-UNSURE OF TYPE OF PORT History of lung surgery STENT TO [id number]? S/P laparoscopic cholecystectomy Family History Mother Coronary heart disease Father , age 90 COPD (chronic obstructive pulmonary disease) Diabetes Aunt Cancer Uncle Diabetes Brother Hypertension Daughter No problems noted. Brother No problems noted. Other No family history of bleeding disorder Denies family history of Ovarian cancer Prostate cancer Breast cancer Colorectal cancer Social History Smoking Status: Former smoker Tobacco Type: Cigarettes Age Started Using Tobacco: 14; Age Quit Using Tobacco: 53; packs per day: 1; Cigarettes Per Day: occasionally; Second Hand Exposure: Yes; Do You Dip or Chew Tobacco: No; Hx Alcohol Use: No Hx Substance Use: No Preferred Language: Kittitian Communication Ability: Effective Visual Impairment: No Limitations Hearing Ability: Normal Fry Cook Required: No Beliefs That Will Affect Care: None marital status: Single marital status details: but has 1 daughter Current Living Situation: Alone Current Living Situation Comment: with help from brother current occupational status: employed and disabled 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 occupation: 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 How many Children do You have: 1 Feels Safe at Home: Yes Diet: regular caffeine: Yes (iced tea) during the past year weight has: remained stable Dental Care, Regularly: No Assistive Devices: Nebulizer and Oxygen - Continuous (Care Plus) Review of Systems Review of Systems: The patient denies chest pain, palpitations, shortness of breath, dyspnea on exertion, cough, lower extremity swelling, sore throat, fevers, chills, sweats, nausea, vomiting, blood in urine or stool, dysuria, urinary frequency or urgency, lightheadedness, dizziness, headache, rash, abnormal bruising or bleeding, imbalance, focal weakness, numbness or tingling in arms or legs, generalized arthralgias or myalgias, back or neck pain, or night sweats. The review of systems is otherwise negative other than for that already noted above, and at least 10 systems have been reviewed. Physical Exam Physical Exam: The patient is awake, alert and oriented 3, well developed and well nourished, normocephalic and atraumatic, lying in bed and in no acute distress. HEENT--PERRL, EOMI, mucous membranes and oropharynx mildly dry. Neck--supple. No JVD. No bruits. Thyroid normal, trachea midline, no adenopathy. Heart--normal S1 and S2. No murmurs, rubs or gallops. Lungs--clear bilaterally, no respiratory distress, no accessory muscle use. Abdomen--normal bowel sounds and soft. Nontender. Nondistended Extremities--no cyanosis or clubbing. No edema. There are good distal pulses b/l. Dermatologic--normal skin turgor, normal color, no abnormal lymph nodes, no rash. Neurologic--cranial nerves II through XII grossly intact. Rheumatologic--normal range of motion. Psychiatric--normal affect. Results & Data Results & Data Vital Signs (Past 12 Hours) Vital Signs Temp Pulse Pulse Resp BP BP Pulse Ox 02/12/24 20:00 102 H 18 128/87 96 02/12/24 19:48 107 H 02/12/24 18:30 101 H 26 H 126/81 96 02/12/24 18:15 102 H 27 H 98 02/12/24 18:00 105 H 15 140/90 98 02/12/24 17:51 105 H 18 134/88 99 02/12/24 17:50 102 H 24 134/88 99 02/12/24 17:01 105 H 18 108/72 95 02/12/24 16:30 109 H 20 112/73 97 02/12/24 16:25 126 H 02/12/24 16:15 94/68 L 02/12/24 16:00 124 H 23 93/78 L 94 02/12/24 15:57 02/12/24 15:47 126 H 20 93 02/12/24 15:29 02/12/24 15:29 36.6 C 130 H 17 87/67 L 95 O2 Del Method 02/12/24 20:00 Room Air 02/12/24 19:48 02/12/24 18:30 02/12/24 18:15 02/12/24 18:00 02/12/24 17:51 Room Air 02/12/24 17:50 02/12/24 17:01 02/12/24 16:30 02/12/24 16:25 02/12/24 16:15 02/12/24 16:00 02/12/24 15:57 Room Air 02/12/24 15:47 02/12/24 15:29 Room Air 02/12/24 15:29 Room Air Laboratory Results Laboratory Results WBC 8.03 K/ul (4.8-10.8) 02/12/24 15:47 RBC 5.15 M/uL (4.70-6.10) 02/12/24 15:47 Hgb 14.4 g/dl (14.0-18.0) 02/12/24 15:47 POC Hgb 14.6 g/dl (14.0-18.0) 02/12/24 15:54 Hct 44.1 % (42.0-52.0) 02/12/24 15:47 POC Hct 43 % (42-52) 02/12/24 15:54 MCV 85.6 fL (80.0-100.0) 02/12/24 15:47 MCH 28.0 pg (25.0-34.0) 02/12/24 15:47 MCHC 32.7 g/dL (32.0-36.0) 02/12/24 15:47 RDW Std Deviation 55.1 fL (36.4-46.3) H 02/12/24 15:47 RDW Coeff of Estela 18.1 % (11.5-14.5) H 02/12/24 15:47 Plt Count 166 K/uL (130-400) 02/12/24 15:47 MPV 9.9 fL (9.4-12.4) 02/12/24 15:47 Immature Gran % (Auto) 0.6 % 02/12/24 15:47 Neut % (Auto) 96.2 % 02/12/24 15:47 Lymph % (Auto) 1.7 % 02/12/24 15:47 Tripp % (Auto) 1.4 % 02/12/24 15:47 Eos % (Auto) 0.1 % 02/12/24 15:47 Baso % (Auto) 0.0 % 02/12/24 15:47 Neut # (Auto) 7.72 K/uL (1.40-6.50) H 02/12/24 15:47 Lymph # (Auto) 0.14 K/uL (1.20-3.40) L 02/12/24 15:47 Tripp # (Auto) 0.11 K/uL (0.11-0.59) 02/12/24 15:47 Eos # (Auto) 0.01 K/uL (0.00-0.50) 02/12/24 15:47 Baso # (Auto) 0.00 K/uL (0.00-0.20) 02/12/24 15:47 Immature Gran # (Auto) 0.05 K/uL (0.01-0.20) 02/12/24 15:47 PT 10.9 Seconds (9.0-12.0) 02/12/24 15:47 INR 1.0 (0.9-1.1) 02/12/24 15:47 APTT 26 Seconds (21-31) 02/12/24 15:47 PTT Ratio 1.0 02/12/24 15:47 VBG pH 7.38 (7.36-7.41) 02/12/24 16: VBG pCO2 40 mmHg (38-50) 02/12/24 16:28 VBG pO2 26 mmHg 02/12/24 16:28 VBG HCO3 24 mmol/L 02/12/24 16:28 VBG O2 Saturation < 60.0 % 02/12/24 16:28 VBG Base Excess -1.3 mEq/L 02/12/24 16:28 POC Sodium 141 mmol/L (135-144) 02/12/24 15:54 Sodium 142 mmol/L (136-145) 02/12/24 15:47 POC Potassium 2.9 mmol/L (3.3-5.0) L 02/12/24 15:54 Potassium 3.0 mmol/L (3.5-5.1) L 02/12/24 15:47 POC Chloride 102 mmol/L (101-112) 02/12/24 15:54 Chloride 106 mmol/L (98-107) 02/12/24 15:47 Carbon Dioxide 23 mmol/L (21-32) 02/12/24 15:47 POC Total CO2 21 mmol/L (24-31) L 02/12/24 15:54 Anion Gap 13 (3-11) H 02/12/24 15:47 POC Anion Gap 22.0 mmol/L (16-25) 02/12/24 15:54 POC BUN 5 mg/dl (7-18) L 02/12/24 15:54 BUN 7 mg/dl (6-23) 02/12/24 15:47 Creatinine 0.71 mg/dl (0.6-1.4) 02/12/24 15:47 POC Creatinine 0.7 mg/dl (0.6-1.3) 02/12/24 15:54 Est Cr Clr Drug Dosing 99.7 ml/min 02/12/24 15:47 Est GFR ( Amer) 115.7 ml/min 02/12/24 15:47 Est GFR (Non-Af Amer) 99.9 ml/min 02/12/24 15:47 BUN/Creatinine Ratio 9.9 (10-20) L 02/12/24 15:47 Glucose 190 mg/dl (70-99(Fasting)) H 02/12/24 15:47 POC Glucose (other) 187 mg/dl (70-99) H 02/12/24 15:54 Lactate 1.6 mmol/L (0.4-2.0) 02/12/24 15:52 Calcium 8.5 mg/dl (8.6-10.3) L 02/12/24 15:47 POC Ioniz Calcium [place] 1.11 mmol/l (1.12-1.32) L 02/12/24 15:54 Magnesium 1.6 mg/dl (1.7-2.4) L 02/12/24 15:47 Total Bilirubin 0.9 mg/dl (0.2-1.0) 02/12/24 15:47 Direct Bilirubin 0.2 mg/dl (0-0.2) 02/12/24 15:47 AST 24 U/L (13-39) 02/12/24 15:47 ALT 25 U/L (7-52) 02/12/24 15:47 Alkaline Phosphatase 74 U/L (34-104) 02/12/24 15:47 Troponin I High Sens 14.9 pg/ml (0-20) 02/12/24 15:47 Total Protein 5.8 gm/dl (6.0-8.3) L D 02/12/24 15:47 Albumin 3.5 gm/dl (3.4-5.0) 02/12/24 15:47 Procalcitonin 0.09 ng/ml (0-0.5) 02/12/24 15:47 Urine Color Yellow 02/12/24 19:23 Urine Appearance Clear (Clear) 02/12/24 19:23 Urine pH 5.5 (4.5-7.5) 02/12/24 19:23 Ur Specific [place] 1.033 (1.000-1.030) H 02/12/24 19:23 Urine Protein Negative (Negative) 02/12/24 19:23 Urine Glucose (UA) Negative (Negative) 02/12/24 19:23 Urine Ketones 2+ (Negative) H 02/12/24 19:23 Urine Blood Negative (Negative) 02/12/24 19:23 Urine Nitrite Negative (Negative) 02/12/24 19:23 Urine Bilirubin Negative (Negative) 02/12/24 19:23 Urine Urobilinogen Negative (Negative) 02/12/24 19:23 Ur Leukocyte Esterase Negative (Negative) 02/12/24 19:23 Stl C. cayetanensis PCR Not Detected (NotDetected) 02/12/24 20:37 Stool Rotavirus A PCR Not Detected (NotDetected) 02/12/24 20:37 Stl Adenov F 40/41 PCR Not Detected (NotDetected) 02/12/24 20:37 Stool Astrovirus (PCR) Not Detected (NotDetected) 02/12/24 20:37 Stool Campylobacter PCR Not Detected (NotDetected) 02/12/24 20:37 Stl C. diff Tox B Gene Negative Cdiff Gene (Neg) 02/12/24 20:37 Stool Cryptosporidium PCR Not Detected (NotDetected) 02/12/24 20:37 Stl E.coli Shiga Tox PCR Not Detected (NotDetected) 02/12/24 20:37 Stl Enterotoxigenic E PCR Not Detected (NotDetected) 02/12/24 20:37 Stool EPEC (PCR) Not Detected (NotDetected) 02/12/24 20:37 Stool EAEC (PCR) Not Detected (NotDetected) 02/12/24 20:37 Stl E. histolytica PCR Not Detected (NotDetected) 02/12/24 20:37 Stool Giardia Lamblia PCR Not Detected (NotDetected) 02/12/24 20:37 Stool Salmonella PCR Not Detected (NotDetected) 02/12/24 20:37 Stool Sapovirus (PCR) Not Detected (NotDetected) 02/12/24 20:37 Stl P. shigelloides PCR Not Detected (NotDetected) 02/12/24 20:37 Stl Shigella/EIEC PCR Not Detected (NotDetected) 02/12/24 20:37 St Y.enterocolitica PCR Not Detected (NotDetected) 02/12/24 20:37 Stool Vibrio (PCR) Not Detected (NotDetected) 02/12/24 20:37 Stl Vibrio cholerae PCR Not Detected (NotDetected) 02/12/24 20:37 Stl Norovirus GI/GII PCR Not Detected (NotDetected) 02/12/24 20:37 Impressions Chest X-Ray 02/12/24 15:34 XR chest 1V portable CLINICAL HISTORY: Sepsis TECHNIQUE: Single frontal radiograph of the chest was obtained. Comparison: Comparison is made to chest radiograph 01/20/2024 FINDINGS: A port catheter is seen. The cardiomediastinal silhouette is normal. The lungs are clear. No evidence of pleural effusion or pneumothorax. IMPRESSION: Interval resolution of previously noted pneumonia. ACT 112: Negative or not required by law. Electronically signed by: Antonio Messina M.D. 02/12/2024 4:12 PM Abdomen/Pelvis CT 02/12/24 16:53 CT OF THE ABDOMEN AND PELVIS WITHOUT CONTRAST CLINICAL HISTORY: Left lower quadrant pain. COMPARISON STUDY: CT of the abdomen and pelvis June 21, 2023. MRI of the abdomen June 22, 2023. TECHNIQUE: Axial images of the abdomen and pelvis were obtained without IV contrast. IV within the right lower extremity infiltrated following contrast administration. The patient's nurse was notified of the extravasation. Images were reviewed in the axial, sagittal, and coronal planes. Automated exposure control was utilized for the study. A dose lowering technique was utilized adhering to the principles of ALARA. FINDINGS: Emphysema is incidentally noted with low lung. Biliary ductal dilatation is similar to prior exam and likely related to cholecystectomy. Spleen, adrenal glands and pancreas are unremarkable. There is no hydronephrosis. No pelvicalyceal, ureteral or bladder filling defects are identified. Sensitivity for detection of urinary calculi is significantly diminished given excreted contrast. Fiducial markers within the prostate are present. No abdominal or pelvic lymphadenopathy. There is no evidence for a bowel obstruction. The colon is mildly fluid-filled. The appendix is normal. No acute fractures are identified within the visualized skeletal structures. IMPRESSION: 1. Fluid-filled colon. This could indicate a diarrheal state. 2. No evidence for a bowel obstruction. Normal appendix. No bowel wall thickening identified. ACT 112: Negative or not required by law. Electronically signed by: Hansel Lopez M.D. 02/12/2024 5:54 PM Code Status & VTE Plan Code Status Full code VTE Prophylaxis Plan VTE Prophylaxis will be ordered: Yes PG Care Time/CCT Total # of Minutes Spent Total Time Spent with Patient: Total time spent is greater than 50% in coordination of care (as documented) at patient's floor/unit and/or counseling patient: Coding Level of Care Code 51531 INT INP/OBS CARE MIN Diagnoses Diarrhea R19.7 Hypokalemia due to excessive gastrointestinal loss of potassium E87.6 Hypomagnesemia E83.42 Weakness R53.1 Prostate cancer C61 Severe chronic obstructive pulmonary disease J44.9 History of lung cancer Z85.118
[2024-02-12] MEDS: NSS + 20MEQ KCL 20 MEQ/1,000 ML BAG IV SCH (21:04)
[2024-02-12] MEDS: MAGNESIUM SULFATE / D5W 1 GM/100 ML BAG IV SCH (21:05)
[2024-02-12] MEDS: VANCOMYCIN HCL 125 MG/2.5ML SOLN PO STA (21:06)
[2024-02-12] MEDS: CHERRY SYRUP 5 ML UDP PO STA (21:06)
[2024-02-12 22:22] LABS: Adenovirus F 40/41 PCR Not Detected (NotDetected); Astrovirus PCR Not Detected (NotDetected); Campylobacter PCR Not Detected (NotDetected); Cryptosporidium PCR Not Detected (NotDetected); Cyclospora cayetanensis PCR Not Detected (NotDetected); Entamoeba histolytica PCR Not Detected (NotDetected); Enteroaggregative E.coli(EAEC) Not Detected (NotDetected); Enteropathogenic E.coli (EPEC) Not Detected (NotDetected); Enterotoxigenic E.coli (ETEC) Not Detected (NotDetected); Giardia lamblia PCR Not Detected (NotDetected); Norovirus GI/GII PCR Not Detected (NotDetected); Plesiomonas shigelloides PCR Not Detected (NotDetected); Rotavirus A PCR Not Detected (NotDetected); Salmonella PCR Not Detected (NotDetected); Sapovirus PCR Not Detected (NotDetected); Shiga-like Toxin E.coli (STEC) Not Detected (NotDetected); Shigella/Enteroinvasive E.coli Not Detected (NotDetected); Vibrio cholerae PCR Not Detected (NotDetected); Vibrio species PCR Not Detected (NotDetected); Yersinia enterocolitica PCR Not Detected (NotDetected)
[2024-02-12] MEDS ORDERED: AZELASTINE HCL 0.1% NASAL 200 SPRAYS/27,400 MCG BTL NAE PRN (22:24)
[2024-02-12] MEDS ORDERED: GLUCAGON FOR INJ 1 MG VIAL SQ PRN (22:24)
[2024-02-12] MEDS ORDERED: DEXTROSE 50% 50 ML SYRINGE IV PRN (22:24)
[2024-02-12] MEDS ORDERED: GLUCOSE 10 TAB/TUBE PO PRN (22:24)
[2024-02-12] MEDS ORDERED: NITROGLYCERIN SL 0.4 MG/TAB TAB SL PRN (22:24)
[2024-02-12] MEDS ORDERED: GLUCOSE 40% GEL 15 GM TUBE PO PRN (22:24)
[2024-02-12] MEDS ORDERED: CARBOHYDRATES FOR HYPOGLYCEMIA PO PRN (22:24)
[2024-02-12] MEDS: oxyCODONE HCL 10 MG TABCR (OxyCONTIN) PO SCH (22:53)
--- NOTE | 2024-02-12 22:58 | Electrocardiogram Report ---
Test Reason : Blood Pressure : / mmHG Vent. Rate : 124 BPM Atrial Rate : 124 BPM P-R Int : 148 ms QRS Dur : 082 ms QT Int : 320 ms P-R-T Axes : 084 073 076 degrees QTc Int : 459 ms Sinus tachycardia Nonspecific ST abnormality Abnormal ECG When compared with ECG of 20-JAN-2024 18:35, No significant change was found Confirmed by John Reyes ([id number]) on 02/12/2024 10:57:48 PM Referred By: REFERRED SELF Confirmed By:John Reyes
[2024-02-12] MEDS: GABAPENTIN 600 MG TAB PO SCH (23:20)
[2024-02-12] MEDS: ATORVASTATIN 40 MG TAB PO SCH (23:20)
[2024-02-12] MEDS: UMECLIDINIUM BROMIDE 62.5MCG/BLISTER 7 PUFFS/INHALER INH SCH (23:21)
[2024-02-12] MEDS: ENOXAPARIN INJ 40 MG/0.4 ML SYR SQ SCH (23:58)
[2024-02-12] MEDS: LORazepam 0.5 MG TAB PO PRN (23:59)
[2024-02-13] MEDS: ACETAMINOPHEN 325 MG TAB PO PRN (02:06)
[2024-02-13] MEDS: oxyCODONE HCL IR 5 MG TAB (IMMEDIATE RELEASE) PO PRN (02:06)
[2024-02-13] MEDS: CHERRY SYRUP 5 ML UDP PO SCH (05:54)
[2024-02-13] MEDS: VANCOMYCIN HCL 125 MG/2.5ML SOLN PO SCH (05:54)
[2024-02-13] MEDS: ONDANSETRON INJ 2 MG/ML 2 ML VIAL IV PRN (06:00)
[2024-02-13] MEDS: ALBUTEROL HFA 8 GM INHALER INH SCH (07:16)
[2024-02-13 07:19] LABS: Hematocrit (blood only) 37.9 % (42.0-52.0); Hemoglobin 11.7 g/dl (14.0-18.0); Mean Corpuscular Hemoglobin 27.4 pg (25.0-34.0); Mean Corpuscular Hgb Conc 30.9 g/dL (32.0-36.0); Mean Corpuscular Volume 88.8 fL (80.0-100.0); Mean Platelet Volume 9.8 fL (9.4-12.4); Platelet Count 140 K/uL (130-400); RDW Coefficient of Variation 17.5 % (11.5-14.5); RDW Standard Deviation 56.2 fL (36.4-46.3); Red Blood Count 4.27 M/uL (4.70-6.10); White Blood Count 4.93 K/ul (4.8-10.8)
[2024-02-13 07:29] LABS: Albumin Globulin Ratio 1.7 (0.9-2); Albumin Level 2.7 gm/dl (3.4-5.0); BUN Creatinine Ratio 6.4 (10-20); Bilirubin,Total 0.6 mg/dl (0.2-1.0); Calcium 7.1 mg/dl (8.6-10.3); Creatinine Clr Calc Pharmacy 148.1 ml/min; Est GFR (African American) 137.1 ml/min; Est GFR (Non-African American) 118.3 ml/min; Globulin 1.6 gm/dl (2.5-4.0); Potassium 2.6 mmol/L (3.5-5.1); Total Protein 4.3 gm/dl (6.0-8.3)
[2024-02-13 08:07] LABS: Acanthocytes 1+; Basophils # (auto) 0.01 K/uL (0.00-0.20); Basophils % (auto) 0.2 %; Echinocytes 2+; Immature Granulocytes # (auto) 0.03 K/uL (0.01-0.20); Immature Granulocytes % (auto) 0.6 %; Lymphocytes # (auto) 0.39 K/uL (1.20-3.40); Lymphocytes % (auto) 7.9 %; Monocytes # (auto) 0.24 K/uL (0.11-0.59); Monocytes % (auto) 4.9 %; Neutrophils # (auto) 4.16 K/uL (1.40-6.50); Neutrophils % (auto) 84.4 %; Polychromasia 1+
[2024-02-13 08:31] LABS: Estimated Average Glucose 154 mg/dl
[2024-02-13] MEDS: LACTATED RINGER'S 1,000 ML IV SCH (09:03)
[2024-02-13] MEDS: FLUTICASONE/VILANTEROL 200/25MCG 14 PUFFS/INHALER INH SCH (09:04)
[2024-02-13] MEDS: ROFLUMILAST 500 MCG TAB PO SCH (09:05)
[2024-02-13] MEDS: MIDODRINE HCL 10 MG TAB PO SCH (09:05)
[2024-02-13] MEDS: DULoxetine HCL 60 MG CAP PO SCH (09:05)
[2024-02-13] MEDS: ASPIRIN 81 MG ECTAB PO SCH (09:05)
[2024-02-13] MEDS: PANTOprazole 40 MG TAB PO SCH (09:05)
[2024-02-13] MEDS: TAMSULOSIN HCL 0.4 MG CAP PO SCH (09:05)
[2024-02-13] MEDS: FLUDROCORTISONE ACETATE 0.1 MG TAB PO SCH (09:05)
[2024-02-13] MEDS: POTASSIUM CHLORIDE CRTAB 20 MEQ TABCR PO STA ×3 (11:06→19:22)
[2024-02-13] MEDS: POTASSIUM CHLORIDE / WTR 10 MEQ/100 ML PLCT IV SCH (11:06)
[2024-02-13] MEDS: PROCHLORPERAZINE MALEATE 10 MG TAB PO SCH (11:31)
--- NOTE | 2024-02-13 13:26 | Hospitalist Progress Note ---
Date of Service February 13, 2024 Assessment & Plan (1) Diarrhea: (2) Hypokalemia due to excessive gastrointestinal loss of potassium: (3) Hypomagnesemia: (4) Weakness: (5) Prostate cancer: (6) Severe chronic obstructive pulmonary disease: (7) History of lung cancer: Plan Diarrhea- - Initial concern on C. difficileC. difficile testing was negative. Stool bio fire was also negative, but with viral enteritis is prevalent in the community, and his overall pattern being more consistent with a viral enteritis than C. difficiletreat as such (supportive care, time)if his diarrhea does not seem to be improving, can consider repeat C. difficile testing, but right now the negative appears to be a true negative. Also certainly could have been some degree of a foodborne enteritisagain treatment would largely be supportive care at this time. Dehydration/low magnesium/low potassium- Due to GI losses, continue to replace, encouraged attempt at p.o. intake Severe COPD/history of lung cancer- Continue usual inhalers, no breathing difficulties today Diabetes mellitus- Hold metformin continue with Accu-Cheks with NovoLog SSI DVT prophylaxis - Lovenox Admission and Anticipated Discharge Date Admission Date: February 12, 2024 Subjective feeling about the same whenever I see him. Earlier in the day it seemed like maybe the diarrhea was slowing, but it has picked back up some. Fortunately definitely not worse. A little bit nauseated does not feel like eating much. Vitals noted, in general he is awake and alert fatigued but no distress. HEENT normocephalic atraumatic mucous membranes moist. Breathing unlabored no accessory muscle use good effort. Skin shows no rashes no pallor or icterus. Abdomen is soft mildly distended, mild tenderness at worst no guarding rebound or rigidity. Results & Data Results & Data Vital Signs (Past 12 Hours) Vital Signs Temp Pulse Resp BP Pulse Ox O2 Del Method 02/13/24 13:10 116 H 20 94 Room Air 02/13/24 08:30 Room Air 02/13/24 08:07 97.5 F L 111 H 18 109/74 96 Room Air 02/13/24 07:17 111 H 18 90 Room Air PG Care Time/CCT Total # of Minutes Spent Total Time Spent with Patient: Total time spent is greater than 50% in coordination of care (as documented) at patient's floor/unit and/or counseling patient: Coding Level of Care Code 44103 SUB INP/OBS CARE 50MIN Diagnoses Diarrhea R19.7 Diarrhea type: unspecified type Hypokalemia due to excessive gastrointestinal loss of potassium E87.6 Hypomagnesemia E83.42 Weakness R53.1 Prostate cancer C61 Severe chronic obstructive pulmonary disease J44.9 History of lung cancer Z85.118 (1) Diarrhea Diarrhea type: unspecified type Qualified Code(s): R19.7 - Diarrhea, unspe cified
[2024-02-13] MEDS: LACTATED RINGER'S 1,000 ML IV ONE (15:39)
[2024-02-13 17:45] LABS: HCO3 VBG 25 mmol/L; Oxygen Saturation VBG < 60.0 %; PCO2 VBG 48 mmHg (38-50); PO2 VBG < 20 mmHg; pH VBG 7.33 (7.36-7.41)
[2024-02-13 18:02] LABS: BUN Creatinine Ratio 5.3 (10-20); Calcium 7.6 mg/dl (8.6-10.3); Creatinine Clr Calc Pharmacy 122.1 ml/min; Est GFR (African American) 126.7 ml/min; Est GFR (Non-African American) 109.3 ml/min
[2024-02-13] MEDS: ALTEPLASE, RECOMBINANT 1 MG/ML 2ML VIAL INSTIL ONE (23:50)
[2024-02-13] MEDS: WATER, STERILE FOR INJ 10 ML VIAL IV SCH (23:51)
[2024-02-14 06:31] LABS: Eosinophils # (auto) 0.09 K/uL (0.00-0.50); Eosinophils % (auto) 1.6 %; Hematocrit (blood only) 33.5 % (42.0-52.0); Hemoglobin 10.8 g/dl (14.0-18.0); Immature Granulocytes # (auto) 0.04 K/uL (0.01-0.20); Immature Granulocytes % (auto) 0.7 %; Lymphocytes # (auto) 0.32 K/uL (1.20-3.40); Lymphocytes % (auto) 5.8 %; Mean Corpuscular Hemoglobin 27.6 pg (25.0-34.0); Mean Corpuscular Hgb Conc 32.2 g/dL (32.0-36.0); Mean Corpuscular Volume 85.7 fL (80.0-100.0); Mean Platelet Volume 9.5 fL (9.4-12.4); Monocytes # (auto) 0.27 K/uL (0.11-0.59); Monocytes % (auto) 4.9 %; Neutrophils # (auto) 4.83 K/uL (1.40-6.50); Platelet Count 122 K/uL (130-400); RDW Coefficient of Variation 17.7 % (11.5-14.5); RDW Standard Deviation 54.7 fL (36.4-46.3); Red Blood Count 3.91 M/uL (4.70-6.10); White Blood Count 5.55 K/ul (4.8-10.8)
[2024-02-14 06:56] LABS: Albumin Globulin Ratio 1.6 (0.9-2); Albumin Level 2.6 gm/dl (3.4-5.0); BUN Creatinine Ratio 4.4 (10-20); Bilirubin,Total 0.6 mg/dl (0.2-1.0); Calcium 7.3 mg/dl (8.6-10.3); Creatinine Clr Calc Pharmacy 154.7 ml/min; Est GFR (African American) 139.6 ml/min; Est GFR (Non-African American) 120.4 ml/min; Globulin 1.6 gm/dl (2.5-4.0); Magnesium 1.4 mg/dl (1.7-2.4); Potassium 3.5 mmol/L (3.5-5.1); Total Protein 4.2 gm/dl (6.0-8.3)
--- NOTE | 2024-02-14 07:17 | Electrocardiogram Report ---
Test Reason : Blood Pressure : / mmHG Vent. Rate : 115 BPM Atrial Rate : 115 BPM P-R Int : 154 ms QRS Dur : 088 ms QT Int : 338 ms P-R-T Axes : 074 072 075 degrees QTc Int : 467 ms Poor data quality, interpretation may be adversely affected Sinus tachycardia Nonspecific ST abnormality Abnormal ECG When compared with ECG of 12-FEB-2024 15:50, No significant change was found Confirmed by Chapin Mohamud ([id number]) on 02/14/2024 7:17:24 AM Referred By: REFERRED SELF Confirmed By:Fernie Mohamud
[2024-02-14] MEDS ORDERED: ALBUT/IPRATROP 3MG/0.5MG NEB 3 ML VIAL NEB PRN (07:42)
[2024-02-14] MEDS: ALBUTEROL HFA 8 GM INHALER INH SCH (07:44)
[2024-02-14] MEDS: MAGNESIUM SULFATE / D5W 1 GM/100 ML BAG IV SCH (07:49)
[2024-02-14] MEDS: POTASSIUM CHLORIDE CRTAB 20 MEQ TABCR PO STA (08:00)
[2024-02-14] MEDS: ALBUTEROL 0.083% NEBU SOLN 3 ML VIAL INH PRN (09:34)
--- NOTE | 2024-02-14 11:59 | XRay Report ---
XR chest 1V portable CLINICAL HISTORY: dyspnea, increased o2 demand TECHNIQUE: Single frontal radiograph of the chest was obtained. Comparison: Comparison is made to chest radiograph 02/12/2024 FINDINGS: No lines and tubes are seen. The cardiomediastinal silhouette is normal. Reticular interstitial opaci ties are seen. No evidence of pleural effusion or pneumothorax. IMPRESSION: No acute chest disease. ACT 112: Negative or not required by law. Electronically signed by: Antonio Messina M.D. 02/14/2024 11:57 AM
[2024-02-14] MEDS: AZITHROMYCIN 250 MG TAB PO SCH (13:02)
[2024-02-14] MEDS: ALBUT/IPRATROP 3MG/0.5MG NEB 3 ML VIAL NEB STA (13:23)
--- NOTE | 2024-02-14 14:41 | Billing Data ---
Date of Service February 14, 2024 Coding Level of Care Code 82884 SUB INP/OBS CARE
--- NOTE | 2024-02-14 16:27 | Hospitalist Progress Note ---
Date of Service February 14, 2024 Assessment & Plan (1) Diarrhea: (2) Hypokalemia due to excessive gastrointestinal loss of potassium: (3) Hypomagnesemia: (4) Weakness: (5) Prostate cancer: (6) Severe chronic obstructive pulmonary disease: (7) History of lung cancer: Plan Diarrhea- - Initial concern on C. difficileC. difficile testing was negative. Stool bio fire was also negative, but with viral enteritis is prevalent in the community, and his overall pattern being more consistent with a viral enteritis than C. difficiletreat as such (supportive care, time)if his diarrhea does not seem to be improving, can consider repeat C. difficile testing, but right now the negative appears to be a true negative. Also certainly could have been some degree of a foodborne enteritisagain treatment would largely be supportive care at this time. Dehydration/low magnesium/low potassium- Due to GI losses, continue to replace, PO intake improving tachycardia - asymptomatic; sinus. probably reactive to all that is going on. also suspect with his severity of COPD he probably has a fairly high resting HR. Severe COPD/history of lung cancer- Continue usual inhalers, suspect he is in the middle of his baseline range for what appears to be labeled as end stage COPD/ FEV1 1.2L, we've discussed that he probably needs O2 more than he uses (would use on days with more dyspnea than usual, would use on days where pulse ox in 80's; can forego if he's feeling good and pulse ox in 90's - but would ask that he follow pulse ox closely); continue prn nebs (but can use more often); trial of QOD azithromycin Diabetes mellitus- -continue current care DVT prophylaxis - Lovenox dispo -anticipate home soon - diarrhea has basically resolved, would like to see PO intake better and HR improve some, then would be stable for home and close outpt f/u Admission and Anticipated Discharge Date Admission Date: February 12, 2024 Subjective feeling okay. Had some dyspnea on exertion earlier. nothing out of range from his baseline on anything but truly good days. stool firming up. eating a little better. uses inhalers regularly, uses neb 2-3x/day. HR still up but no specific symptoms otherwise Review of Systems Review of Systems: All systems reviewed & are unremarkable except as noted in HPI & below Physical Exam Physical Exam: gen aaox3 pleasant fatigued nad lungs quiet but clear no r/r/w good effort skin without rashes/pallor/icterus Results & Data Results & Data Vital Signs (Past 12 Hours) Vital Signs Temp Pulse Resp BP Pulse Ox O2 Del Method O2 Flow Rate 02/14/24 14:49 Nasal Cannula 2 02/14/24 14:45 98.8 F 118 H 20 111/59 L 98 Nasal Cannula 2 02/14/24 13:43 120 H 20 99 Nasal Cannula 2 02/14/24 09:34 124 H 20 90 Room Air 02/14/24 08:00 Nasal Cannula 2 02/14/24 07:44 118 H 18 92 Nasal Cannula 2 02/14/24 07:08 98.6 F 123 H 16 106/70 92 Nasal Cannula 2 PG Care Time/CCT Total # of Minutes Spent Total Time Spent with Patient: Total time spent is greater than 50% in coordination of care (as documented) at patient's floor/unit and/or counseling patient: Coding Level of Care Code None Diagnoses Diarrhea R19.7 Diarrhea type: unspecified type Hypokalemia due to excessive gastrointestinal loss of potassium E87.6 Hypomagnesemia E83.42 Weakness R53.1 Prostate cancer C61 Severe chronic obstructive pulmonary disease J44.9 History of lung cancer Z85.118 Comment 233 documented separately (1) Diarrhea Diarrhea type: unspecified type Qualified Code(s): R19.7 - Diarrhea, unspecified
--- NOTE | 2024-02-15 03:31 | Communication Note ---
Date of Service: February 15, 2024 I was notified by nursing that Mr. Rosales was found to have a HR of 162 and oxygen saturation had dropped to 79, later returned to low 90s%. EKG was obtai miracle, which showed sinus tachycardia, I went to bedside, patient endorsed shortness of breath but denied chest pain. Patient has had increased episodes of diarrhea tonight, endorses some abdominal discomfort with palpation but no other pain. I ordered chest x-ray, trop, CBC, CMP, mag level. Initial 20meq KCl ordered and 2g mag sulfate, 50g albumin ordered as well. Repeat stool testing obtained and remained negative. Patient was transferred to PCU, HR remaining largely in 130s, BP decreased to 92/57. I ordered an additional 500mL NSS bolus, then ordered maintenance fluids to be switched to NSS + KCl as his potassium level has not responded well to oral potassium repletion.
[2024-02-15] MEDS: POTASSIUM CHLORIDE CRTAB 20 MEQ TABCR PO STA (03:45)
[2024-02-15] MEDS: MAGNESIUM SULFATE / D5W 1 GM/100 ML BAG IV SCH (03:46)
[2024-02-15 04:06] LABS: Hematocrit (blood only) 40.9 % (42.0-52.0); Hemoglobin 13.1 g/dl (14.0-18.0); Mean Corpuscular Hemoglobin 27.8 pg (25.0-34.0); Mean Corpuscular Volume 86.8 fL (80.0-100.0); Mean Platelet Volume 9.6 fL (9.4-12.4); Platelet Count 147 K/uL (130-400); RDW Coefficient of Variation 18.3 % (11.5-14.5); RDW Standard Deviation 57.4 fL (36.4-46.3); Red Blood Count 4.71 M/uL (4.70-6.10); White Blood Count 6.22 K/ul (4.8-10.8)
[2024-02-15 04:09] LABS: Albumin Globulin Ratio 1.3 (0.9-2); Albumin Level 3.1 gm/dl (3.4-5.0); BUN Creatinine Ratio 6.1 (10-20); Bilirubin,Total 0.9 mg/dl (0.2-1.0); Calcium 8.6 mg/dl (8.6-10.3); Creatinine Clr Calc Pharmacy 142.1 ml/min; Est GFR (African American) 134.8 ml/min; Est GFR (Non-African American) 116.3 ml/min; Globulin 2.4 gm/dl (2.5-4.0); Magnesium 1.5 mg/dl (1.7-2.4); Potassium 3.4 mmol/L (3.5-5.1); Total Protein 5.5 gm/dl (6.0-8.3)
[2024-02-15 04:30] LABS: Basophils # (auto) 0.01 K/uL (0.00-0.20); Basophils % (auto) 0.2 %; Eosinophils # (auto) 0.06 K/uL (0.00-0.50); Immature Granulocytes # (auto) 0.03 K/uL (0.01-0.20); Immature Granulocytes % (auto) 0.5 %; Lymphocytes # (auto) 0.18 K/uL (1.20-3.40); Lymphocytes % (auto) 2.9 %; Monocytes % (auto) 3.2 %; Neutrophils # (auto) 5.74 K/uL (1.40-6.50); Neutrophils % (auto) 92.2 %
[2024-02-15] MEDS: ALBUMIN 25% 25 GM/100 ML VIAL IV SCH (04:30)
[2024-02-15 04:32] LABS: Adenovirus F 40/41 PCR Not Detected (NotDetected); Astrovirus PCR Not Detected (NotDetected); Campylobacter PCR Not Detected (NotDetected); Cryptosporidium PCR Not Detected (NotDetected); Cyclospora cayetanensis PCR Not Detected (NotDetected); Entamoeba histolytica PCR Not Detected (NotDetected); Enteroaggregative E.coli(EAEC) Not Detected (NotDetected); Enteropathogenic E.coli (EPEC) Not Detected (NotDetected); Enterotoxigenic E.coli (ETEC) Not Detected (NotDetected); Giardia lamblia PCR Not Detected (NotDetected); Norovirus GI/GII PCR Not Detected (NotDetected); Plesiomonas shigelloides PCR Not Detected (NotDetected); Rotavirus A PCR Not Detected (NotDetected); Salmonella PCR Not Detected (NotDetected); Sapovirus PCR Not Detected (NotDetected); Shiga-like Toxin E.coli (STEC) Not Detected (NotDetected); Shigella/Enteroinvasive E.coli Not Detected (NotDetected); Vibrio cholerae PCR Not Detected (NotDetected); Vibrio species PCR Not Detected (NotDetected); Yersinia enterocolitica PCR Not Detected (NotDetected)
[2024-02-15 04:45] LABS: Troponin I High Sensitivity 10.7 pg/ml (0-20)
[2024-02-15] MEDS: SODIUM CHLORIDE 0.9% 500 ML IV ONE (06:18)
--- NOTE | 2024-02-15 06:35 | XRay Report ---
XR chest 1V portable CLINICAL HISTORY: Hypoxia. COMPARISON STUDY: Chest CT January 20, 2024. Chest radiograph February 14, 2024. FINDINGS: Left subclavian Ioxcyb-x-Luvi is unchanged in position. Right basilar opacity has developed . Linear right upper lung density has slightly increased. Underlying emphysema is present. Cardiomedi astinal silhouette is stable. There is no pneumothorax or pleural effusion. IMPRESSION: 1. Interval development of right basilar opacity suggestive of pneumonia. 2. Slight increase in linear right upper lung density. This could reflect scarring or additional focu s of pneumonia. 3. Emphysema. ACT 112: Negative or not required by law. Electronically signed by: Hansel Lopez M.D. 02/15/2024 6:32 AM
[2024-02-15] MEDS: NSS + 20MEQ KCL 20 MEQ/1,000 ML BAG IV SCH (07:40)
[2024-02-15] MEDS: LACTATED RINGER'S 500 ML IV ONE (07:40)
[2024-02-15 07:55] LABS: C Reactive Protein 27.68 mg/dl (0-0.5)
[2024-02-15] MEDS: cefTRIAXone SODIUM 2,000 MG/50 ML BAG IV SCH (08:03)
[2024-02-15] MEDS: AZITHROMYCIN 250 MG TAB PO SCH (08:08)
--- NOTE | 2024-02-15 08:35 | Electrocardiogram Report ---
Test Reason : Blood Pressure : / mmHG Vent. Rate : 149 BPM Atrial Rate : 149 BPM P-R Int : 128 ms QRS Dur : 076 ms QT Int : 322 ms P-R-T Axes : 073 072 080 degrees QTc Int : 507 ms Sinus tachycardia Low voltage QRS Nonspecific ST and T wave abnormality Abnormal ECG When compared with ECG of 13-FEB-2024 17:05, (unconfirmed) Nonspecific T wave abnormality now evident in Lateral leads Confirmed by Chapin Mohamud ([id number]) on 02/15/2024 8:35:39 AM Referred By: REFERRED SELF Confirmed By:Fernie Mohamud
[2024-02-15] MEDS: FAMOTIDINE 20MG IV PUSH 20 MG/5 ML SYR IV SCH (09:09)
[2024-02-15] MEDS: LOPERAMIDE HCL 2 MG CAP PO PRN (11:31)
--- NOTE | 2024-02-15 11:31 | Hospitalist Progress Note ---
Date of Service February 15, 2024 Assessment & Plan (1) Diarrhea: (2) Hypokalemia due to excessive gastrointestinal loss of potassium: (3) Hypomagnesemia: (4) Weakness: (5) Prostate cancer: (6) Severe chronic obstructive pulmonary disease: (7) History of lung cancer: Plan Diarrhea With patient's recent hospitalization and abx use there was initial concern for c dif. Was initially started on vancomycin. Stool BioFire and c. dif testing negative. Most likely viral gastroenteritis. Continue supportive care - hydration, imodium etc Dehydration/low magnesium/low potassium- Due to GI losses, continue to replace, PO intake improving Tachycardia Sinus tachycardia. Acutely reactive in setting of dehydration and GI losses. Likely a chronic component d/t end stage COPD as well. monitor on tele Severe COPD/history of lung cancer- Continue usual inhalers, suspect he is in the middle of his baseline range. End stage COPD and history of lung CA, in remission. Patient not using home oxygen unless significant dyspnea. Would recommend monitoring with pulse ox goal 88- 92%. Continue PRN nebs. Trial azithromycin 500 mg Q24H continue CTX for presumed pneumonia Diabetes mellitus- -continue current care Code status: DNR/DNI, does follow with palliative care discussing hospice DVT ppx: Lovenox FENGI: DM carb consistent, heart healthy, IVF @ 125mL/hr Dispo: tele unit Admission and Anticipated Discharge Date Admission Date: February 12, 2024 Supervising Physician Co-Signing Physician Notes I personally examined the patient and verified hanna points of history and exam, discussed case, and agree with decision making and plan documented by Dr. Shah. Patient resting comfortably in bed on 2 L nasal cannula. He denied any episodes of diarrhea in the past couple hours. We reviewed his CODE STATUS and he does confirm that he is DNR/DNI and that his family is aware of this, chart was updated. Repletion of electrolytes today, patient tolerating p.o. well. Portable chest x-ray with interval development of right basilar opacity suggestive of pneumonia, patient started on azithromycin and Rocephin, will obtain 2 view chest x-ray tomorrow. Subjective Patient seen at bedside this AM. Patient continues to have diarrhea and SOB. Overall not feeling well. No CP, fevers, or chills. Is not on oxygen therapy outpatient - unclear if he is to be. Review of Systems 2 Review of Systems: See HPI Physical Exam 2 Physical Exam: Gen: well appearing patient in NAD HEENT: AT NC MMM Resp: elevated respiratory rate, no signs of distress, lung sounds diminished diffusely with poor air movement CV: tachycardic, no m/r/g clinically well perfused Abd: +BS non-distended MSK: no obvious deformities Skin: no rashes or bruising Neuro: alert and oriented Psych: appropriate mood and affect Results & Data Results & Data Laboratory Results 02/15/24 03:24 02/15/24 03:24 Resident Activity Tracking Resident Involvement: Resident Care Provided Care Provided: Adult Hospital Medicine (1) Diarrhea Diarrhea type: unspecified type Qualified Code(s): R19.7 - Diarrhea, unspecified
[2024-02-15] MEDS: hydrOXYzine HCl 25 MG TAB PO PRN (21:13)
[2024-02-16] MEDS: ALTEPLASE, RECOMBINANT 1 MG/ML 2ML VIAL INSTIL ONE (08:17)
--- NOTE | 2024-02-16 11:11 | Hospitalist Progress Note ---
Date of Service February 16, 2024 Assessment & Plan (1) Diarrhea: (2) Hypokalemia due to excessive gastrointestinal loss of potassium: (3) Hypomagnesemia: (4) Weakness: (5) Prostate cancer: (6) Severe chronic obstructive pulmonary disease: (7) History of lung cancer: Plan Severe COPD/history of lung cancer- Continue usual inhalers, suspect he is in the middle of his baseline range with ?pneumonia on top. Started on CTX and azithromycin. End stage COPD and history of lung CA, in remission. Continue PRN nebs. Was on CTX and azithromycin. Patient may be entering the active phase of dying with his end-stage COPD. 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 Discontinue abx. Continue nebs/oxygen etc for comfort measures. palliative consult, appreciate recs continue supportive care, WINDOW CUTTER Diarrhea With patient's recent hospitalization and abx use there was initial concern for c dif. Was initially started on vancomycin. Stool BioFire and c. dif testing negative. Most likely viral gastroenteritis. Continue supportive care - hydration, imodium etc Dehydration/low magnesium/low potassium- Due to GI losses. No need for further repletion. Tachycardia Sinus tachycardia. Acutely reactive in setting of dehydration and GI losses. Likely a chronic component d/t end stage COPD as well. Diabetes mellitus- -continue current care Code status: DNR/DNI, now WINDOW CUTTER DVT ppx: Lovenox FENGI: regular Dispo: tele unit Admission and Anticipated Discharge Date Admission Date: February 12, 2024 Supervising Physician Co-Signing Physician Notes I personally examined the patient and verified hanna points of history and exam, discussed case, and agree with decision making and plan documented by Dr. Shah. Patient with declining respiratory and mental status today. Decision was made to pursue comfort measures only. Conversation with palliative medicine and patient's family occurred and his daughter Imani, his brothers, and his mother all present and agree with WINDOW CUTTER. Subjective Patient with clinical deterioration. Tachypneic, tachycardic, increasing oxygen requirement. Patient more confused this AM. Was incontinent of bowel this AM. Continues to have diarrhea. Review of Systems 2 Review of Systems: See HPI Physical Exam 2 Physical Exam: Gen: well appearing patient in NAD HEENT: AT NC MMM Resp: tachypneic, belly breathing, lung sounds diminished diffusely with little to no air movement CV: tachycardic, no m/r/g clinically well perfused Abd: +BS non-distended, soft MSK: no obvious deformities Skin: no rashes or bruising Neuro: alert and oriented Psych: appropriate mood and affect Results & Data Results & Data Vital Signs (Past 12 Hours) Vital Signs Temp Pulse Pulse Resp BP Pulse Ox O2 Del Method 02/16/24 07:50 Nasal Cannula 02/16/24 07:50 117 H 02/16/24 07:34 140 H 26 H 97 Nasal Cannula 02/16/24 07:06 36.5 C 120 H 20 122/82 90 Room Air 02/16/24 04:04 119 H 20 96 Nasal Cannula 02/16/24 03:39 36.8 C 119 H 22 100/65 93 Nasal Cannula 02/15/24 23:12 36.5 C 122 H 22 121/82 91 Nasal Cannula O2 Flow Rate 02/16/24 07:50 2 02/16/24 07:50 02/16/24 07:34 4 02/16/24 07:06 02/16/24 04:04 2 02/16/24 03:39 2 02/15/24 23:12 2 Laboratory Results 02/15/24 03:24 02/15/24 03:24 Resident Activity Tracking Resident Involvement: Resident Care Provided Care Provided: Adult Hospital Medicine (1) Diarrhea Diarrhea type: unspecified type Qualified Code(s): R19.7 - Diarrhea, unspecified
--- NOTE | 2024-02-16 11:26 | Palliative Care Consultation ---
Date of Consultation February 16, 2024 Assessment & Plan (1) Dyspnea and respiratory abnormalities: Dilaudid 0.3mg IV Q30min prn, modified to q15min later this afternoon due to uncontrolled resp distress and air hunger Dilaudid 0.5mg IV Q30min prn severe air hunger, modified to q15min later afternoon due to persistent distress (2) Weakness generalized: (3) Advanced care planning/counseling discussion: daughter: Imani Parham [phone] ACP call to dtr x 25min changes in condition with decline discussed She states pt had not been forthcoming about how sick he was, she felt he was going to get better bc he told her he was fine/nothing to worry. She is aware his desire is [facility] if declining. We discussed terminal COPD and he is transitioning from a process of living to a process of dying. She elects [facility]. She knows he would not desire CPR or aggressive interventions. She will notify family later this afternoon, face to face ACP with dtr, brothers x2, patient's mom and stepdad in family meeting room x45min Above issues reviewed COPD end stage dz reviewed EOL plan of care reviewed Family in agreement with [facility] Discussed changes pt may move through in the dying process including but not limited to sleeping more, disorientation when awake, restlessness, diminished senses/inability to respond to stimulus although ability to be aware of them remains intact longer, changes in body temperatures, skin changes/mottling/cyanosis, respiratory pattern changes, oral secretions. Family verbalized understanding. The goal is to assure a peaceful . Total ACP time is 70min (4) Pulmonary cachexia due to COPD: (5) Palliative care by specialist: (6) COPD (chronic obstructive pulmonary disease): terminal COPD COPD type: emphysema Plan [facility] Ativan for anxiety/agitation/restlessness ordered in addition to Dilaudid Isak has been clear in prior clinic and hospital encounters his goal is comfort [facility] status, orders written Thank you for allowing us to participate in the ongoing care of this patient. Please don't hesitate to call or page with any additional concerns. Dr. Leonarda Fernando DNP Director, Palliative Care History of Present Illness Reason for Consultation: worsening clinical status Attending Physician: Silvia Ellsworth DO History of Present Illness Isak is a 63yo male with very advanced COPD, well known to Palliative Med and currently readmitted from rehab with progressive weakness, fever, diarrhea + inc SOB, cough, dyspnea at rest. PMH includes smoking related COPD / emphysema, lung cancer, PH, declining PS, high frequency [facility] admissions. Most recently admitted to [facility] for a few weeks then dc to SNF rehab appro 10 days ago. Worsening MS this admission with declining resp status Presently delirious, agitated, signif increased WOB and restless. No family present at time of my evaluation. He tells me he needs to get going, he is late for his golf game He then adds he will give a black eye to whomever tries to keep him here (of note, patient at baseline is a very gentle and mild mannered person, this is not his typical baseline.) Allergies Allergy/AdvReac Type Severity Reaction Status Date / Time No Known Allergies Allergy Verified 02/12/24 17:43 Home Medications Medication Instructions Recorded Confirmed Type lancets 30 gauge (Genius Pack [place] #100 ea 07/11/21 12/29/23 Rx Lancets) azelastine 137 mcg (0.1 %) nasal 1 spray intranasal BID PRN 08/21/22 02/12/24 Rx spray aerosol ALLERGIC RHINITIS #90 mL Portable Oxygen [id number] #1 ea 10/13/22 12/29/23 Rx aspirin 81 mg tablet,delayed 81 mg PO QAM 01/08/23 02/12/24 History release (Adult Low Dose Aspirin) umeclidinium 62.5 mcg/actuation 1 inh inhalation QPM #3 Inhalers 04/27/23 02/12/24 Rx blister powder for inhalation (Incruse Ellipta) blood sugar diagnostic (Genius Pack #100 ea 07/06/23 12/29/23 Rx Verio test strips) guaifenesin 600 mg tablet, 1,200 mg (2 x 600 mg) PO Q12 #30 07/30/23 02/12/24 Rx extended release 12 hr (Mucinex) tabs albuterol sulfate 2.5 mg/3 mL 2.5 mg (3 mL) inhalation Q4H PRN 08/24/23 02/12/24 Rx (0.083 %) solution for nebulization COPD #360 mL ipratropium bromide 0.02 % 2.5 ml inhalation Q4H PRN COPD 08/24/23 02/12/24 Rx solution for inhalation #300 mL Breo Ellipta 200 mcg-25 mcg/dose 1 inh inhalation QAM #60 ea 10/01/23 02/12/24 Rx powder for inhalation (fluticasone furoate-vilanterol) duloxetine 60 mg capsule,delayed 60 mg PO QAM 30 days #30 caps 10/22/23 02/12/24 Rx release (Cymbalta) gabapentin 600 mg tablet 600 mg PO TID 30 days #90 tabs 10/22/23 02/12/24 Rx hydroxyzine HCl 25 mg tablet 25 mg PO HS PRN insomnia #90 tabs 11/05/23 02/12/24 Rx roflumilast 500 mcg tablet 500 mcg PO QAM #90 tabs 12/23/23 02/12/24 Rx (Daliresp) omeprazole 40 mg capsule,delayed 40 mg PO QAM #90 caps 12/24/23 02/12/24 Rx release nitroglycerin 0.4 mg sublingual 0.4 mg sublingual PRN PRN chest 01/20/24 02/12/24 Rx tablet (Nitrostat) pain #25 tabs tamsulosin 0.4 mg capsule 0.4 mg PO QAM 01/20/24 02/12/24 History lorazepam 0.5 mg tablet 0.5 mg PO Q6H PRN anxiety or 01/25/24 02/12/24 Rx insomnia #20 tabs oxycodone 10 mg tablet,crush 10 mg PO Q12 #14 tabs 02/01/24 02/12/24 Rx resistant,extended release 12 hr (OxyContin) oxycodone 5 mg tablet 5 mg PO Q4H PRN SOB or pain #14 02/01/24 02/12/24 Rx tabs acetaminophen 325 mg tablet 650 mg PO Q6H PRN PAIN/FEVER 02/12/24 02/12/24 History (Tylenol) albuterol sulfate 90 mcg/actuation 2 puff inhalation TIDM Shortness 02/12/24 02/12/24 History aerosol inhaler Of Breath Or Wheezing atorvastatin 80 mg tablet 80 mg PO HS 02/12/24 02/12/24 History azithromycin 250 mg tablet 250 mg PO 3XWK 02/12/24 02/12/24 History ciprofloxacin HCl 250 mg tablet 250 mg PO Q12H 02/12/24 02/12/24 History (Cipro) fludrocortisone 0.1 mg tablet 0.2 mg PO QAM 02/12/24 02/12/24 History loperamide 2 mg tablet (Imodium 2 mg PO Q6H PRN Diarrhea 02/12/24 02/12/24 Hist ory A-D) metformin 500 mg tablet 1,000 mg PO BIDM 02/12/24 02/12/24 History metronidazole 500 mg tablet 500 mg PO TIDM 02/12/24 02/12/24 History midodrine 10 mg tablet 10 mg PO TIDM 02/12/24 02/12/24 History prednisone 20 mg tablet 20 mg PO DIRECTED 02/12/24 02/12/24 History promethazine 25 mg/mL injection 12.5 mg IM Q6H PRN NAUSEA/VOMITING 02/12/24 02/12/24 History solution sodium chloride 0.9 % 100 ml IV .HOURLY 02/12/24 02/12/24 History Patient History Medical History Orthostasis Dyslipidemia, goal LDL below 70 Presence of drug coated stent in left circumflex coronary artery (01/2021) GERD (gastroesophageal reflux disease) Anxiety and depression Sleep disorder breathing Weakness generalized Pulmonary cachexia due to COPD Weight loss End stage COPD History of tachycardia 01/06/23, recently seen in the [facility] for tachycardia. Pt stated the doctor increased his metoprolol to 75mg daily. History of home oxygen therapy "USED WHEN I FIRST HAD IT, NOW I DON'T THINK IT HELPS, SO I DON'T USE IT VERY OFTEN" Chronic obstructive pulmonary disease Emphysema lung Hyperlipidemia Prostate cancer 2021; RADIATION TREATMENT, NO SX. STEMI (ST elevation myocardial infarction) (01/2021) 2020, BROUGHT TO [facility]-"HAVING PAIN AND DIDN'T FEEL WELL"; FOLLOWS W/ [place] [facility] BPH with elevated PSA CAD (coronary artery disease) S/p stent 2020 S/p YARA to LCx 01/15/2021 Type 2 diabetes mellitus Neuropathy Stomach ulcer HX -UNDER CONTROL GERD (gastroesophageal reflux disease) SOB (shortness of breath) on exertion Asthma Depression Anxiety Hypertension History of pulmonary embolus (PE) 2016-NO ISSUES SINCE H/O pneumothorax Severe chronic obstructive pulmonary disease Evaluated for lung transplant, pulmonary function not sufficiently low at this time History of lung cancer (2011) NON SMALL CELL LUNG CANCER - STAGE IV DX 2012-LEFT LOBE/NO SURGERY/RADIATION/CHEMO FEEDING TUBE PRESENT FOR 1.5 YEARS DURING THIS TIME Surgical History Hx of inguinal hernia surgery History of cardiac cath W/ X1 STENT- 2020- FOLLOWS W/ [place] [facility] S/P cystoscopy with ureteral stent placement S/P REMOVAL STENT ALSO History of prostate biopsy (01/01/22) History of colonoscopy History of esophagogastroduodenoscopy (EGD) History of vascular access device PORT PLACEMENT-UPPER LEFT IN PLACE-UNSURE OF TYPE OF PORT History of lung surgery STENT TO [id number]? S/P laparoscopic cholecystectomy Family History Mother Coronary heart disease Father , age 90 COPD (chronic obstructive pulmonary disease) Diabetes Aunt Cancer Uncle Diabetes Brother Hypertension Daughter No problems noted. Brother No problems noted. Other No family history of bleeding disorder Denies family history of Ovarian cancer Prostate cancer Breast cancer Colorectal cancer Social History Smoking Status: Former smoker Tobacco Type: Cigarettes Age Started Using Tobacco: 14; Age Quit Using Tobacco: 53; packs per day: 1; Cigarettes Per Day: occasionally; Second Hand Exposure: Yes; Do You Dip or Chew Tobacco: No; Hx Alcohol Use: No Hx Substance Use: No Preferred Language: Kenyan Communication Ability: Effective Visual Impairment: No Limitations Hearing Ability: Normal Petrophysical Engineer Required: No Beliefs That Will Affect Care: Cultural marital status: Single marital status details: but has 1 daughter Current Living Situation: Alone Current Living Situation Comment: with help from brother current occupational status: employed and disabled 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 How many Children do You have: 1 Feels Safe at Home: Yes Diet: regular caffeine: Yes (iced tea) during the past year weight has: remained stable Dental Care, Regularly: No Assistive Devices: Oxygen - Continuous Review of Systems Review of Systems: Unobtainable due to cognitive status Physical Exam Constitutional: + ill appearing, + cachectic, + altered mental status, + physical limitations, + frail appearing, + disheveled (pt has removed all his clothing and refuses to allow clothes to be placed ) and + in distress Eyes: PERRL and normal accommodation ENMT: Mouth: + dry oral mucous membranes, + poor dentition and + chipped teeth Throat: uvula midline Neck: normal visual inspection and trachea midline Thyroid: normal thyroid Respiratory: + respiratory distress, + labored breath ing, + uses accessory muscles, + cough, + abnormal respiratory pattern, + tachypneic, + nasal flaring and + pursed lip breathing; + not able to speak in complete sentence and + asymmetric chest movement Auscultation: + diminished lung sounds and + wheezes Cardiovascular: Rate/Rhythm: + tachycardic and + irregularly irregular Heart Sounds: normal S1 and normal S2 Vessels: normal peripheral pulses Extremities: + edema (trace); + abnormal capillary refill Gastrointestinal (Abdomen): Percussion/Palpation: abdomen nontender +abdominal breathing Musculoskeletal: generalized weakness +muscle wasting Skin: scattered ecchymoses, pale, cool +venous insuff chnages BLE Neurologic: awake and + confused Gait: + ataxic gait agitated, restless and intermittently confused [facility] delirium screen ++ Psychiatric: Orientation: alert and cooperative Apperance: + disheveled (has removed all clothing, refusing to put gown on) Eye Contact: + fair eye contact Speech: + pressured speech Affect: + anxious affect, + labile affect and + irritable affect Mood: + anxious mood and + irritable mood Thought Process: + tangential thought process, + looseness of associations and + perseveration tells me he needs to leave for golf game and also said he would punch staff in the eye if they touch him Results & Data Vital Signs (Past 12 Hours) Vital Signs Temp Pulse Pulse Resp BP Pulse Ox O2 Del Method 02/16/24 07:50 Nasal Cannula 02/16/24 07:50 117 H 02/16/24 07:34 140 H 26 H 97 Nasal Cannula 02/16/24 07:06 36.5 C 120 H 20 122/82 90 Room Air 02/16/24 04:04 119 H 20 96 Nasal Cannula 02/16/24 03:39 36.8 C 119 H 22 100/65 93 Nasal Cannula O2 Flow Rate 02/16/24 07:50 2 02/16/24 07:50 02/16/24 07:34 4 02/16/24 07:06 02/16/24 04:04 2 02/16/24 03:39 2 Laboratory Results 02/16/24 02/15/24 02/15/24 Range/Units 07:58 Unknown 20:10 WBC (4.8-10.8) K/ul RBC (4.70-6.10) M/uL Hgb (14.0-18.0) g/dl POC Hgb (14.0-18.0) g/dl Hct (42.0-52.0) % POC Hct (42-52) % MCV (80.0-100.0) fL MCH (25.0-34.0) pg MCHC (32.0-36.0) g/dL RDW Std Deviation (36.4-46.3) fL RDW Coeff of Estela (11.5-14.5) % Plt Count (130-400) K/uL MPV (9.4-12.4) fL Immature Gran % (Auto) % Neut % (Auto) % Lymph % (Auto) % [place] % (Auto) % Eos % (Auto) % Baso % (Auto) % Neut # (Auto) (1.40-6.50) K/uL Lymph # (Auto) (1.20-3.40) K/uL [place] # (Auto) (0.11-0.59) K/uL Eos # (Auto) (0.00-0.50) K/uL Baso # (Auto) (0.00-0.20) K/uL Immature Gran # (Auto) (0.01-0.20) K/uL Polychromasia Echinocytes Acanthocytes (Spur) ESR (0-20) mm/hr PT (9.0-12.0) Seconds INR (0.9-1.1) APTT (21-31) Seconds PTT Ratio VBG pH (7.36-7.41) VBG pCO2 (38-50) mmHg VBG pO2 mmHg VBG HCO3 mmol/L VBG O2 Saturation % VBG Base Excess mEq/L POC Sodium (135-144) mmol/L Sodium (136-145) mmol/L POC Potassium (3.3-5.0) mmol/L Potassium (3.5-5.1) mmol/L POC Chloride (101-112) mmol/L Chloride (98-107) mmol/L Carbon Dioxide (21-32) mmol/L POC Total CO2 (24-31) mmol/L Anion Gap (3-11) POC Anion Gap (16-25) mmol/L POC BUN (7-18) mg/dl BUN (6-23) mg/dl Creatinine (0.6-1.4) mg/dl POC Creatinine (0.6-1.3) mg/dl Est Cr Clr Drug Dosing ml/min Est GFR ( Amer) ml/min Est GFR (Non-Af Amer) ml/min BUN/Creatinine Ratio (10-20) Glucose (70-99(Fasting)) mg/dl POC Glucose 111 H 116 H (70-99) mg/dl POC Glucose (other) (70-99) mg/dl Estimat Average Glucose mg/dl Hemoglobin A1c (4.5-5.6) % Lactate (0.4-2.0) mmol/L Calcium (8.6-10.3) mg/dl POC Ioniz Calcium Alona (1.12-1.32) mmol/l Magnesium (1.7-2.4) mg/dl Total Bilirubin (0.2-1.0) mg/dl Direct Bilirubin (0-0.2) mg/dl AST (13-39) U/L ALT (7-52) U/L Alkaline Phosphatase (34-104) U/L Troponin I High Sens (0-20) pg/ml C-Reactive Protein (0-0.5) mg/dl Total Protein (6.0-8.3) gm/dl Albumin (3.4-5.0) gm/dl Globulin (2.5-4.0) gm/dl Albumin/Globulin Ratio (0.9-2) Procalcitonin (0-0.5) ng/ml Urine Color Urine Appearance (Clear) Urine pH (4.5-7.5) Ur Specific [place] (1.000-1.030) Urine Protein (Negative) Urine Glucose (UA) (Negative) Urine Ketones (Negative) Urine Blood (Negative) Urine Nitrite (Negative) Urine Bilirubin (Negative) Urine Urobilinogen (Negative) Ur Leukocyte Esterase (Negative) Stl C. cayetanensis PCR Not Detected (NotDetected) Stool Rotavirus A PCR Not Detected (NotDetected) Stl Adenov F 40/41 PCR Not Detected (NotDetected) Stool Astrovirus (PCR) Not Detected (NotDetected) Stool Campylobacter PCR Not Detected (NotDetected) Stl C. diff Tox B Gene Negative Cdiff Gene (Neg) Stool Cryptosporidium PCR Not Detected (NotDetected) Stl E.coli Shiga Tox PCR Not Detected (NotDetected) Stl Enterotoxigenic E PCR Not Detected (NotDetected) Stool EPEC (PCR) Not Detected (NotDetected) Stool EAEC (PCR) Not Detected (NotDetected) Stl E. histolytica PCR Not Detected (NotDetected) Stool Giardia Lamblia PCR Not Detected (NotDetected) Stool Salmonella PCR Not Detected (NotDetected) Stool Sapovirus (PCR) Not Detected (NotDetected) Stl P. shigelloides PCR Not Detected (NotDetected) Stl Shigella/EIEC PCR Not Detected (NotDetected) St Y.enterocolitica PCR Not Detected (NotDetected) Stool Vibrio (PCR) Not Detected (NotDetected) Stl Vibrio cholerae PCR Not Detected (NotDetected) Stl Norovirus GI/GII PCR Not Detected (NotDetected) 02/15/24 02/15/24 02/15/24 Range/Units 16:26 11:25 07:36 WBC (4.8-10.8) K/ul RBC (4.70-6.10) M/uL Hgb (14.0-18.0) g/dl POC Hgb (14.0-18.0) g/dl Hct (42.0-52.0) % POC Hct (42-52) % MCV (80.0-100.0) fL MCH (25.0-34.0) pg MCHC (32.0-36.0) g/dL RDW Std Deviation (36.4-46.3) fL RDW Coeff of Estela (11.5-14.5) % Plt Count (130-400) K/uL MPV (9.4-12.4) fL Immature Gran % (Auto) % Neut % (Auto) % Lymph % (Auto) % [place] % (Auto) % Eos % (Auto) % Baso % (Auto) % Neut # (Auto) (1.40-6.50) K/uL Lymph # (Auto) (1.20-3.40) K/uL [place] # (Auto) (0.11-0.59) K/uL Eos # (Auto) (0.00-0.50) K/uL Baso # (Auto) (0.00-0.20) K/uL Immature Gran # (Auto) (0.01-0.20) K/uL Polychromasia Echinocytes Acanthocytes (Spur) ESR (0-20) mm/hr PT (9.0-12.0) Seconds INR (0.9-1.1) APTT (21-31) Seconds PTT Ratio VBG pH (7.36-7.41) VBG pCO2 (38-50) mmHg VBG pO2 mmHg VBG HCO3 mmol/L VBG O2 Saturation % VBG Base Excess mEq/L POC Sodium (135-144) mmol/L Sodium (136-145) mmol/L POC Potassium (3.3-5.0) mmol/L Potassium (3.5-5.1) mmol/L POC Chloride (101-112) mmol/L Chloride (98-107) mmol/L Carbon Dioxide (21-32) mmol/L POC Total CO2 (24-31) mmol/L Anion Gap (3-11) POC Anion Gap (16-25) mmol/L POC BUN (7-18) mg/dl BUN (6-23) mg/dl Creatinine (0.6-1.4) mg/dl POC Creatinine (0.6-1.3) mg/dl Est Cr Clr Drug Dosing ml/min Est GFR ( Amer) ml/min Est GFR (Non-Af Amer) ml/min BUN/Creatinine Ratio (10-20) Glucose (70-99(Fasting)) mg/dl POC Glucose 119 H 173 H 131 H (70-99) mg/dl POC Glucose (other) (70-99) mg/dl Estimat Average Glucose mg/dl Hemoglobin A1c (4.5-5.6) % Lactate (0.4-2.0) mmol/L Calcium (8.6-10.3) mg/dl POC Ioniz Calcium [place] (1.12-1.32) mmol/l Magnesium (1.7-2.4) mg/dl Total Bilirubin (0.2-1.0) mg/dl Direct Bilirubin (0-0.2) mg/dl AST (13-39) U/L ALT (7-52) U/L Alkaline Phosphatase (34-104) U/L Troponin I High Sens (0-20) pg/ml C-Reactive Protein (0-0.5) mg/dl Total Protein (6.0-8.3) gm/dl Albumin (3.4-5.0) gm/dl Globulin (2.5-4.0) gm/dl Albumin/Globulin Ratio (0.9-2) Procalcitonin (0-0.5) ng/ml Urine Color Urine Appearance (Clear) Urine pH (4.5-7.5) Ur Specific [place] (1.000-1.030) Urine Protein (Negative) Urine Glucose (UA) (Negative) Urine Ketones (Negative) Urine Blood (Negative) Urine Nitrite (Negative) Urine Bilirubin (Negative) Urine Urobilinogen (Negative) Ur Leukocyte Esterase (Negative) Stl C. cayetanensis PCR (NotDetected) Stool Rotavirus A PCR (NotDetected) Stl Adenov F 40/41 PCR (NotDetected) Stool Astrovirus (PCR) (NotDetected) Stool Campylobacter PCR (NotDetected) Stl C. diff Tox B Gene (Neg) Stool Cryptosporidium PCR (NotDetected) Stl E.coli Shiga Tox PCR (NotDetected) Stl Enterotoxigenic E PCR (NotDetected) Stool EPEC (PCR) (NotDetected) Stool EAEC (PCR) (NotDetected) Stl E. histolytica PCR (NotDetected) Stool Giardia Lamblia PCR (NotDetected) Stool Salmonella PCR (NotDetected) Stool Sapovirus (PCR) (NotDetected) Stl P. shigelloides PCR (NotDetected) Stl Shigella/EIEC PCR (NotDetected) St Y.enterocolitica PCR (NotDetected) Stool Vibrio (PCR) (NotDetected) Stl Vibrio cholerae PCR (NotDetected) Stl Norovirus GI/GII PCR (NotDetected) 02/15/24 02/14/24 02/14/24 Range/Units 03:24 20:36 16:32 WBC 6.22 (4.8-10.8) K/ul RBC 4.71 (4.70-6.10) M/uL Hgb 13.1 L (14.0-18.0) g/dl POC Hgb (14.0-18.0) g/dl Hct 40.9 L (42.0-52.0) % POC Hct (42-52) % MCV 86.8 (80.0-100.0) fL MCH 27.8 (25.0-34.0) pg MCHC 32.0 (32.0-36.0) g/dL RDW Std Deviation 57.4 H (36.4-46.3) fL RDW Coeff of Estela 18.3 H (11.5-14.5) % Plt Count 147 (130-400) K/uL MPV 9.6 (9.4-12.4) fL Immature Gran % (Auto) 0.5 % Neut % (Auto) 92.2 % Lymph % (Auto) 2.9 % [place] % (Auto) 3.2 % Eos % (Auto) 1.0 % Baso % (Auto) 0.2 % Neut # (Auto) 5.74 (1.40-6.50) K/uL Lymph # (Auto) 0.18 L (1.20-3.40) K/uL [place] # (Auto) 0.20 (0.11-0.59) K/uL Eos # (Auto) 0.06 (0.00-0.50) K/uL Baso # (Auto) 0.01 (0.00-0.20) K/uL Immature Gran # (Auto) 0.03 (0.01-0.20) K/uL Polychromasia Echinocytes Acanthocytes (Spur) ESR 22 H (0-20) mm/hr PT (9.0-12.0) Seconds INR (0.9-1.1) APTT (21-31) Seconds PTT Ratio VBG pH (7.36-7.41) VBG pCO2 (38-50) mmHg VBG pO2 mmHg VBG HCO3 mmol/L VBG O2 Saturation % VBG Base Excess mEq/L POC Sodium (135-144) mmol/L Sodium 141 (136-145) mmol/L POC Potassium (3.3-5.0) mmol/L Potassium 3.4 L (3.5-5.1) mmol/L POC Chloride (101-112) mmol/L Chloride 106 (98-107) mmol/L Carbon Dioxide 26 (21-32) mmol/L POC Total CO2 (24-31) mmol/L Anion Gap 9 (3-11) POC Anion Gap (16-25) mmol/L POC BUN (7-18) mg/dl BUN 3 L (6-23) mg/dl Creatinine 0.49 L (0.6-1.4) mg/dl POC Creatinine (0.6-1.3) mg/dl Est Cr Clr Drug Dosing 142.1 ml/min Est GFR ( Amer) 134.8 ml/min Est GFR (Non-Af Amer) 116.3 ml/min BUN/Creatinine Ratio 6.1 L (10-20) Glucose 86 (70-99(Fasting)) mg/dl POC Glucose 124 H 156 H (70-99) mg/dl POC Glucose (other) (70-99) mg/dl Estimat Average Glucose mg/dl Hemoglobin A1c (4.5-5.6) % Lactate (0.4-2.0) mmol/L Calcium 8.6 (8.6-10.3) mg/dl POC Ioniz Calcium [place] (1.12-1.32) mmol/l Magnesium 1.5 L (1.7-2.4) mg/dl Total Bilirubin 0.9 (0.2-1.0) mg/dl Direct Bilirubin (0-0.2) mg/dl AST 22 (13-39) U/L ALT 24 (7-52) U/L Alkaline Phosphatase 68 (34-104) U/L Troponin I High Sens 10.7 (0-20) pg/ml C-Reactive Protein 27.68 H (0-0.5) mg/dl Total Protein 5.5 L D (6.0-8.3) gm/dl Albumin 3.1 L (3.4-5.0) gm/dl Globulin 2.4 L (2.5-4.0) gm/dl Albumin/Globulin Ratio 1.3 (0.9-2) Procalcitonin (0-0.5) ng/ml Urine Color Urine Appearance (Clear) Urine pH (4.5-7.5) Ur Specific [place] (1.000-1.030) Urine Protein (Negative) Urine Glucose (UA) (Negative) Urine Ketones (Negative) Urine Blood (Negative) Urine Nitrite (Negative) Urine Bilirubin (Negative) Urine Urobilinogen (Negative) Ur Leukocyte Esterase (Negative) Stl C. cayetanensis PCR (NotDetected) Stool Rotavirus A PCR (NotDetected) Stl Adenov F 40/41 PCR (NotDetected) Stool Astrovirus (PCR) (NotDetected) Stool Campylobacter PCR (NotDetected) Stl C. diff Tox B Gene (Neg) Stool Cryptosporidium PCR (NotDetected) Stl E.coli Shiga Tox PCR (NotDetected) Stl Enterotoxigenic E PCR (NotDetected) Stool EPEC (PCR) (NotDetected) Stool EAEC (PCR) (NotDetected) Stl E. histolytica PCR (NotDetected) Stool Giardia Lamblia PCR (NotDetected) Stool Salmonella PCR (NotDetected) Stool Sapovirus (PCR) (NotDetected) Stl P. shigelloides PCR (NotDetected) Stl Shigella/EIEC PCR (NotDetected) St Y.enterocolitica PCR (NotDetected) Stool Vibrio (PCR) (NotDetected) Stl Vibrio cholerae PCR (NotDetected) Stl Norovirus GI/GII PCR (NotDetected) 02/14/24 02/14/24 02/14/24 Range/Units 11:26 07:28 05:49 WBC 5.55 (4.8-10.8) K/ul RBC 3.91 L (4.70-6.10) M/uL Hgb 10.8 L (14.0-18.0) g/dl POC Hgb (14.0-18.0) g/dl Hct 33.5 L (42.0-52.0) % POC Hct (42-52) % MCV 85.7 (80.0-100.0) fL MCH 27.6 (25.0-34.0) pg MCHC 32.2 (32.0-36.0) g/dL RDW Std Deviation 54.7 H (36.4-46.3) fL RDW Coeff of Estela 17.7 H (11.5-14.5) % Plt Count 122 L (130-400) K/uL MPV 9.5 (9.4-12.4) fL Immature Gran % (Auto) 0.7 % Neut % (Auto) 87.0 % Lymph % (Auto) 5.8 % [place] % (Auto) 4.9 % Eos % (Auto) 1.6 % Baso % (Auto) 0.0 % Neut # (Auto) 4.83 (1.40-6.50) K/uL Lymph # (Auto) 0.32 L (1.20-3.40) K/uL [place] # (Auto) 0.27 (0.11-0.59) K/uL Eos # (Auto) 0.09 (0.00-0.50) K/uL Baso # (Auto) 0.00 (0.00-0.20) K/uL Immature Gran # (Auto) 0.04 (0.01-0.20) K/uL Polychromasia Echinocytes Acanthocytes (Spur) ESR (0-20) mm/hr PT (9.0-12.0) Seconds INR (0.9-1.1) APTT (21-31) Seconds PTT Ratio VBG pH (7.36-7.41) VBG pCO2 (38-50) mmHg VBG pO2 mmHg VBG HCO3 mmol/L VBG O2 Saturation % VBG Base Excess mEq/L POC Sodium (135-144) mmol/L Sodium 139 (136-145) mmol/L POC Potassium (3.3-5.0) mmol/L Potassium 3.5 (3.5-5.1) mmol/L POC Chloride (101-112) mmol/L Chloride 109 H (98-107) mmol/L Carbon Dioxide 26 (21-32) mmol/L POC Total CO2 (24-31) mmol/L Anion Gap 4 (3-11) POC Anion Gap (16-25) mmol/L POC BUN (7-18) mg/dl BUN 2 L (6-23) mg/dl Creatinine 0.45 L (0.6-1.4) mg/dl POC Creatinine (0.6-1.3) mg/dl Est Cr Clr Drug Dosing 154.7 ml/min Est GFR ( Amer) 139.6 ml/min Est GFR (Non-Af Amer) 120.4 ml/min BUN/Creatinine Ratio 4.4 L (10-20) Glucose 118 H (70-99(Fasting)) mg/dl POC Glucose 173 H 106 H (70-99) mg/dl POC Glucose (other) (70-99) mg/dl Estimat Average Glucose mg/dl Hemoglobin A1c (4.5-5.6) % Lactate (0.4-2.0) mmol/L Calcium 7.3 L (8.6-10.3) mg/dl POC Ioniz Calcium Alona (1.12-1.32) mmol/l Magnesium 1.4 L (1.7-2.4) mg/dl Total Bilirubin 0.6 (0.2-1.0) mg/dl Direct Bilirubin (0-0.2) mg/dl AST 16 (13-39) U/L ALT 17 (7-52) U/L Alkaline Phosphatase 51 (34-104) U/L Troponin I High Sens (0-20) pg/ml C-Reactive Protein (0-0.5) mg/dl Total Protein 4.2 L (6.0-8.3) gm/dl Albumin 2.6 L (3.4-5.0) gm/dl Globulin 1.6 L (2.5-4.0) gm/dl Albumin/Globulin Ratio 1.6 (0.9-2) Procalcitonin (0-0.5) ng/ml Urine Color Urine Appearance (Clear) Urine pH (4.5-7.5) Ur Specific [place] (1.000-1.030) Urine Protein (Negative) Urine Glucose (UA) (Negative) Urine Ketones (Negative) Urine Blood (Negative) Urine Nitrite (Negative) Urine Bilirubin (Negative) Urine Urobilinogen (Negative) Ur Leukocyte Esterase (Negative) Stl C. cayetanensis PCR (NotDetected) Stool Rotavirus A PCR (NotDetected) Stl Adenov F 40/41 PCR (NotDetected) Stool Astrovirus (PCR) (NotDetected) Stool Campylobacter PCR (NotDetected) Stl C. diff Tox B Gene (Neg) Stool Cryptosporidium PCR (NotDetected) Stl E.coli Shiga Tox PCR (NotDetected) Stl Enterotoxigenic E PCR (NotDetected) Stool EPEC (PCR) (NotDetected) Stool EAEC (PCR) (NotDetected) Stl E. histolytica PCR (NotDetected) Stool Giardia Lamblia PCR (NotDetected) Stool Salmonella PCR (NotDetected) Stool Sapovirus (PCR) (NotDetected) Stl P. shigelloides PCR (NotDetected) Stl Shigella/EIEC PCR (NotDetected) St Y.enterocolitica PCR (NotDetected) Stool Vibrio (PCR) (NotDetected) Stl Vibrio cholerae PCR (NotDetected) Stl Norovirus GI/GII PCR (NotDetected) 02/13/24 02/13/24 02/13/24 Range/Units 20:41 17:25 16:26 WBC (4.8-10.8) K/ul RBC (4.70-6.10) M/uL Hgb (14.0-18.0) g/dl POC Hgb (14.0-18.0) g/dl Hct (42.0-52.0) % POC Hct (42-52) % MCV (80.0-100.0) fL MCH (25.0-34.0) pg MCHC (32.0-36.0) g/dL RDW Std Deviation (36.4-46.3) fL RDW Coeff of Estela (11.5-14.5) % Plt Count (130-400) K/uL MPV (9.4-12.4) fL Immature Gran % (Auto) % Neut % (Auto) % Lymph % (Auto) % [place] % (Auto) % Eos % (Auto) % Baso % (Auto) % Neut # (Auto) (1.40-6.50) K/uL Lymph # (Auto) (1.20-3.40) K/uL [place] # (Auto) (0.11-0.59) K/uL Eos # (Auto) (0.00-0.50) K/uL Baso # (Auto) (0.00-0.20) K/uL Immature Gran # (Auto) (0.01-0.20) K/uL Polychromasia Echinocytes Acanthocytes (Spur) ESR (0-20) mm/hr PT (9.0-12.0) Seconds INR (0.9-1.1) APTT (21-31) Seconds PTT Ratio VBG pH 7.33 L (7.36-7.41) VBG pCO2 48 (38-50) mmHg VBG pO2 < 20 mmHg VBG HCO3 25 mmol/L VBG O2 Saturation < 60.0 % VBG Base Excess -1.0 mEq/L POC Sodium (135-144) mmol/L Sodium 141 (136-145) mmol/L POC Potassium (3.3-5.0) mmol/L Potassium 3.0 L (3.5-5.1) mmol/L POC Chloride (101-112) mmol/L Chloride 109 H (98-107) mmol/L Carbon Dioxide 26 (21-32) mmol/L POC Total CO2 (24-31) mmol/L Anion Gap 6 (3-11) POC Anion Gap (16-25) mmol/L POC BUN (7-18) mg/dl BUN 3 L (6-23) mg/dl Creatinine 0.57 L (0.6-1.4) mg/dl POC Creatinine (0.6-1.3) mg/dl Est Cr Clr Drug Dosing 122.1 ml/min Est GFR ( Amer) 126.7 ml/min Est GFR (Non-Af Amer) 109.3 ml/min BUN/Creatinine Ratio 5.3 L (10-20) Glucose 164 H (70-99(Fasting)) mg/dl POC Glucose 151 H 159 H (70-99) mg/dl POC Glucose (other) (70-99) mg/dl Estimat Average Glucose mg/dl Hemoglobin A1c (4.5-5.6) % Lactate (0.4-2.0) mmol/L Calcium 7.6 L (8.6-10.3) mg/dl POC Ioniz Calcium [place] (1.12-1.32) mmol/l Magnesium (1.7-2.4) mg/dl Total Bilirubin (0.2-1.0) mg/dl Direct Bilirubin (0-0.2) mg/dl AST (13-39) U/L ALT (7-52) U/L Alkaline Phosphatase (34-104) U/L Troponin I High Sens (0-20) pg/ml C-Reactive Protein (0-0.5) mg/dl Total Protein (6.0-8.3) gm/dl Albumin (3.4-5.0) gm/dl Globulin (2.5-4.0) gm/dl Albumin/Globulin Ratio (0.9-2) Procalcitonin (0-0.5) ng/ml Urine Color Urine Appearance (Clear) Urine pH (4.5-7.5) Ur Specific [place] (1.000-1.030) Urine Protein (Negative) Urine Glucose (UA) (Negative) Urine Ketones (Negative) Urine Blood (Negative) Urine Nitrite (Negative) Urine Bilirubin (Negative) Urine Urobilinogen (Negative) Ur Leukocyte Esterase (Negative) Stl C. cayetanensis PCR (NotDetected) Stool Rotavirus A PCR (NotDetected) Stl Adenov F 40/ PCR (NotDetected) Stool Astrovirus (PCR) (NotDetected) Stool Campylobacter PCR (NotDetected) Stl C. diff Tox B Gene (Neg) Stool Cryptosporidium PCR (NotDetected) Stl E.coli Shiga Tox PCR (NotDetected) Stl Enterotoxigenic E PCR (NotDetected) Stool EPEC (PCR) (NotDetected) Stool EAEC (PCR) (NotDetected) Stl E. histolytica PCR (NotDetected) Stool Giardia Lamblia PCR (NotDetected) Stool Salmonella PCR (NotDetected) Stool Sapovirus (PCR) (NotDetected) Stl P. shigelloides PCR (NotDetected) Stl Shigella/EIEC PCR (NotDetected) St Y.enterocolitica PCR (NotDetected) Stool Vibrio (PCR) (NotDetected) Stl Vibrio cholerae PCR (NotDetected) Stl Norovirus GI/GII PCR (NotDetected) 02/13/24 02/13/24 02/13/24 Range/Units 11:30 07:40 05:52 WBC 4.93 (4.8-10.8) K/ul RBC 4.27 L (4.70-6.10) M/uL Hgb 11.7 L (14.0-18.0) g/dl POC Hgb (14.0-18.0) g/dl Hct 37.9 L (42.0-52.0) % POC Hct (42-52) % MCV 88.8 (80.0-100.0) fL MCH 27.4 (25.0-34.0) pg MCHC 30.9 L (32.0-36.0) g/dL RDW Std Deviation 56.2 H (36.4-46.3) fL RDW Coeff of Estela 17.5 H (11.5-14.5) % Plt Count 140 (130-400) K/uL MPV 9.8 (9.4-12.4) fL Immature Gran % (Auto) 0.6 % Neut % (Auto) 84.4 % Lymph % (Auto) 7.9 % [place] % (Auto) 4.9 % Eos % (Auto) 2.0 % Baso % (Auto) 0.2 % Neut # (Auto) 4.16 (1.40-6.50) K/uL Lymph # (Auto) 0.39 L (1.20-3.40) K/uL [place] # (Auto) 0.24 (0.11-0.59) K/uL Eos # (Auto) 0.10 (0.00-0.50) K/uL Baso # (Auto) 0.01 (0.00-0.20) K/uL Immature Gran # (Auto) 0.03 (0.01-0.20) K/uL Polychromasia 1+ Echinocytes 2+ Acanthocytes (Spur) 1+ ESR (0-20) mm/hr PT (9.0-12.0) Seconds INR (0.9-1.1) APTT (21-31) Seconds PTT Ratio VBG pH (7.36-7.41) VBG pCO2 (38-50) mmHg VBG pO2 mmHg VBG HCO3 mmol/L VBG O2 Saturation % VBG Base Excess mEq/L POC Sodium (135-144) mmol/L Sodium 143 (136-145) mmol/L POC Potassium (3.3-5.0) mmol/L Potassium 2.6 L (3.5-5.1) mmol/L POC Chloride (101-112) mmol/L Chloride 112 H (98-107) mmol/L Carbon Dioxide 24 (21-32) mmol/L POC Total CO2 (24-31) mmol/L Anion Gap 7 (3-11) POC Anion Gap (16-25) mmol/L POC BUN (7-18) mg/dl BUN 3 L (6-23) mg/dl Creatinine 0.47 L (0.6-1.4) mg/dl POC Creatinine (0.6-1.3) mg/dl Est Cr Clr Drug Dosing 148.1 ml/min Est GFR ( Amer) 137.1 ml/min Est GFR (Non-Af Amer) 118.3 ml/min BUN/Creatinine Ratio 6.4 L (10-20) Glucose 83 (70-99(Fasting)) mg/dl POC Glucose 135 H 93 (70-99) mg/dl POC Glucose (other) (70-99) mg/dl Estimat Average Glucose 154 mg/dl Hemoglobin A1c 7.0 H (4.5-5.6) % Lactate (0.4-2.0) mmol/L Calcium 7.1 L (8.6-10.3) mg/dl POC Ioniz Calcium [place] (1.12-1.32) mmol/l Magnesium 2.0 (1.7-2.4) mg/dl Total Bilirubin 0.6 (0.2-1.0) mg/dl Direct Bilirubin (0-0.2) mg/dl AST 18 (13-39) U/L ALT 19 (7-52) U/L Alkaline Phosphatase 54 (34-104) U/L Troponin I High Sens (0-20) pg/ml C-Reactive Protein (0-0.5) mg/dl Total Protein 4.3 L D (6.0-8.3) gm/dl Albumin 2.7 L (3.4-5.0) gm/dl Globulin 1.6 L (2.5-4.0) gm/dl Albumin/Globulin Ratio 1.7 (0.9-2) Procalcitonin (0-0.5) ng/ml Urine Color Urine Appearance (Clear) Urine pH (4.5-7.5) Ur Specific [place] (1.000-1.030) Urine Protein (Negative) Urine Glucose (UA) (Negative) Urine Ketones (Negative) Urine Blood (Negative) Urine Nitrite (Negative) Urine Bilirubin (Negative) Urine Urobilinogen (Negative) Ur Leukocyte Esterase (Negative) Stl C. cayetanensis PCR (NotDetected) Stool Rotavirus A PCR (NotDetected) Stl Adenov F 40/41 PCR (NotDetected) Stool Astrovirus (PCR) (NotDetected) Stool Campylobacter PCR (NotDetected) Stl C. diff Tox B Gene (Neg) Stool Cryptosporidium PCR (NotDetected) Stl E.coli Shiga Tox PCR (NotDetected) Stl Enterotoxigenic E PCR (NotDetected) Stool EPEC (PCR) (NotDetected) Stool EAEC (PCR) (NotDetected) Stl E. histolytica PCR (NotDetected) Stool Giardia Lamblia PCR (NotDetected) Stool Salmonella PCR (NotDetected) Stool Sapovirus (PCR) (NotDetected) Stl P. shigelloides PCR (NotDetected) Stl Shigella/EIEC PCR (NotDetected) St Y.enterocolitica PCR (NotDetected) Stool Vibrio (PCR) (NotDetected) Stl Vibrio cholerae PCR (NotDetected) Stl Norovirus GI/GII PCR (NotDetected) 02/12/24 02/12/24 02/12/24 Range/Units 20:37 19:23 16:28 WBC (4.8-10.8) K/ul RBC (4.70-6.10) M/uL Hgb (14.0-18.0) g/dl POC Hgb (14.0-18.0) g/dl Hct (42.0-52.0) % POC Hct (42-52) % MCV (80.0-100.0) fL MCH (25.0-34.0) pg MCHC (32.0-36.0) g/dL RDW Std Deviation (36.4-46.3) fL RDW Coeff of Estela (11.5-14.5) % Plt Count (130-400) K/uL MPV (9.4-12.4) fL Immature Gran % (Auto) % Neut % (Auto) % Lymph % (Auto) % [place] % (Auto) % Eos % (Auto) % Baso % (Auto) % Neut # (Auto) (1.40-6.50) K/uL Lymph # (Auto) (1.20-3.40) K/uL [place] # (Auto) (0.11-0.59) K/uL Eos # (Auto) (0.00-0.50) K/uL Baso # (Auto) (0.00-0.20) K/uL Immature Gran # (Auto) (0.01-0.20) K/uL Polychromasia Echinocytes Acanthocytes (Spur) ESR (0-20) mm/hr PT (9.0-12.0) Seconds INR (0.9-1.1) APTT (21-31) Seconds PTT Ratio VBG pH 7.38 (7.36-7.41) VBG pCO2 40 (38-50) mmHg VBG pO2 26 mmHg VBG HCO3 24 mmol/L VBG O2 Saturation < 60.0 % VBG Base Excess -1.3 mEq/L POC Sodium (135-144) mmol/L Sodium (136-145) mmol/L POC Potassium (3.3-5.0) mmol/L Potassium (3.5-5.1) mmol/L POC Chloride (101-112) mmol/L Chloride (98-107) mmol/L Carbon Dioxide (21-32) mmol/L POC Total CO2 (24-31) mmol/L Anion Gap (3-11) POC Anion Gap (16-25) mmol/L POC BUN (7-18) mg/dl BUN (6-23) mg/dl Creatinine (0.6-1.4) mg/dl POC Creatinine (0.6-1.3) mg/dl Est Cr Clr Drug Dosing ml/min Est GFR ( Amer) ml/min Est GFR (Non-Af Amer) ml/min BUN/Creatinine Ratio (10-20) Glucose (70-99(Fasting)) mg/dl POC Glucose (70-99) mg/dl POC Glucose (other) (70-99) mg/dl Estimat Average Glucose mg/dl Hemoglobin A1c (4.5-5.6) % Lactate (0.4-2.0) mmol/L Calcium (8.6-10.3) mg/dl POC Ioniz Calcium [place] (1.12-1.32) mmol/l Magnesium (1.7-2.4) mg/dl Total Bilirubin (0.2-1.0) mg/dl Direct Bilirubin (0-0.2) mg/dl AST (13-39) U/L ALT (7-52) U/L Alkaline Phosphatase (34-104) U/L Troponin I High Sens (0-20) pg/ml C-Reactive Protein (0-0.5) mg/dl Total Protein (6.0-8.3) gm/dl Albumin (3.4-5.0) gm/dl Globulin (2.5-4.0) gm/dl Albumin/Globulin Ratio (0.9-2) Procalcitonin (0-0.5) ng/ml Urine Color Yellow Urine Appearance Clear (Clear) Urine pH 5.5 (4.5-7.5) Ur Specific [place] 1.033 H (1.000-1.030) Urine Protein Negative (Negative) Urine Glucose (UA) Negative (Negative) Urine Ketones 2+ H (Negative) Urine Blood Negative (Negative) Urine Nitrite Negative (Negative) Urine Bilirubin Negative (Negative) Urine Urobilinogen Negative (Negative) Ur Leukocyte Esterase Negative (Negative) Stl C. cayetanensis PCR Not Detected (NotDetected) Stool Rotavirus A PCR Not Detected (NotDetected) Stl Adenov F 40/41 PCR Not Detected (NotDetected) Stool Astrovirus (PCR) Not Detected (NotDetected) Stool Campylobacter PCR Not Detected (NotDetected) Stl C. diff Tox B Gene Negative Cdiff Gene (Neg) Stool Cryptosporidium PCR Not Detected (NotDetected) Stl E.coli Shiga Tox PCR Not Detected (NotDetected) Stl Enterotoxigenic E PCR Not Detected (NotDetected) Stool EPEC (PCR) Not Detected (NotDetected) Stool EAEC (PCR) Not Detected (NotDetected) Stl E. histolytica PCR Not Detected (NotDetected) Stool Giardia Lamblia PCR Not Detected (NotDetected) Stool Salmonella PCR Not Detected (NotDetected) Stool Sapovirus (PCR) Not Detected (NotDetected) Stl P. shigelloides PCR Not Detected (NotDetected) Stl Shigella/EIEC PCR Not Detected (NotDetected) St Y.enterocolitica PCR Not Detected (NotDetected) Stool Vibrio (PCR) Not Detected (NotDetected) Stl Vibrio cholerae PCR Not Detected (NotDetected) Stl Norovirus GI/GII PCR Not Detected (NotDetected) 02/12/24 02/12/24 02/12/24 Range/Units 15:54 15:52 15:47 WBC 8.03 (4.8-10.8) K/ul RBC 5.15 (4.70-6.10) M/uL Hgb 14.4 (14.0-18.0) g/dl POC Hgb 14.6 (14.0-18.0) g/dl Hct 44.1 (42.0-52.0) % POC Hct 43 (42-52) % MCV 85.6 (80.0-100.0) fL MCH 28.0 (25.0-34.0) pg MCHC 32.7 (32.0-36.0) g/dL RDW Std Deviation 55.1 H (36.4-46.3) fL RDW Coeff of Estela 18.1 H (11.5-14.5) % Plt Count 166 (130-400) K/uL MPV 9.9 (9.4-12.4) fL Immature Gran % (Auto) 0.6 % Neut % (Auto) 96.2 % Lymph % (Auto) 1.7 % [place] % (Auto) 1.4 % Eos % (Auto) 0.1 % Baso % (Auto) 0.0 % Neut # (Auto) 7.72 H (1.40-6.50) K/uL Lymph # (Auto) 0.14 L (1.20-3.40) K/uL [place] # (Auto) 0.11 (0.11-0.59) K/uL Eos # (Auto) 0.01 (0.00-0.50) K/uL Baso # (Auto) 0.00 (0.00-0.20) K/uL Immature Gran # (Auto) 0.05 (0.01-0.20) K/uL Polychromasia Echinocytes Acanthocytes (Spur) ESR (0-20) mm/hr PT 10.9 (9.0-12.0) Seconds INR 1.0 (0.9-1.1) APTT 26 (21-31) Seconds PTT Ratio 1.0 VBG pH (7.36-7.41) VBG pCO2 (38-50) mmHg VBG pO2 mmHg VBG HCO3 mmol/L VBG O2 Saturation % VBG Base Excess mEq/L POC Sodium 141 (135-144) mmol/L Sodium 142 (136-145) mmol/L POC Potassium 2.9 L (3.3-5.0) mmol/L Potassium 3.0 L (3.5-5.1) mmol/L POC Chloride 102 (101-112) mmol/L Chloride 106 (98-107) mmol/L Carbon Dioxide 23 (21-32) mmol/L POC Total CO2 21 L (24-31) mmol/L Anion Gap 13 H (3-11) POC Anion Gap 22.0 (16-25) mmol/L POC BUN 5 L (7-18) mg/dl BUN 7 (6-23) mg/dl Creatinine 0.71 (0.6-1.4) mg/dl POC Creatinine 0.7 (0.6-1.3) mg/dl Est Cr Clr Drug Dosing 99.7 ml/min Est GFR ( Amer) 115.7 ml/min Est GFR (Non-Af Amer) 99.9 ml/min BUN/Creatinine Ratio 9.9 L (10-20) Glucose 190 H (70-99(Fasting)) mg/dl POC Glucose (70-99) mg/dl POC Glucose (other) 187 H (70-99) mg/dl Estimat Average Glucose mg/dl Hemoglobin A1c (4.5-5.6) % Lactate 1.6 (0.4-2.0) mmol/L Calcium 8.5 L (8.6-10.3) mg/dl POC Ioniz Calcium [place] 1.11 L (1.12-1.32) mmol/l Magnesium 1.6 L (1.7-2.4) mg/dl Total Bilirubin 0.9 (0.2-1.0) mg/dl Direct Bilirubin 0.2 (0-0.2) mg/dl AST 24 (13-39) U/L ALT 25 (7-52) U/L Alkaline Phosphatase 74 (34-104) U/L Troponin I High Sens 14.9 (0-20) pg/ml C-Reactive Protein (0-0.5) mg/dl Total Protein 5.8 L D (6.0-8.3) gm/dl Albumin 3.5 (3.4-5.0) gm/dl Globulin (2.5-4.0) gm/dl Albumin/Globulin Ratio (0.9-2) Procalcitonin 0.09 (0-0.5) ng/ml Urine Color Urine Appearance (Clear) Urine pH (4.5-7.5) Ur Specific [place] (1.000-1.030) Urine Protein (Negative) Urine Glucose (UA) (Negative) Urine Ketones (Negative) Urine Blood (Negative) Urine Nitrite (Negative) Urine Bilirubin (Negative) Urine Urobilinogen (Negative) Ur Leukocyte Esterase (Negative) Stl C. cayetanensis PCR (NotDetected) Stool Rotavirus A PCR (NotDetected) Stl Adenov F 40/41 PCR (NotDetected) Stool Astrovirus (PCR) (NotDetected) Stool Campylobacter PCR (NotDetected) Stl C. diff Tox B Gene (Neg) Stool Cryptosporidium PCR (NotDetected) Stl E.coli Shiga Tox PCR (NotDetected) Stl Enterotoxigenic E PCR (NotDetected) Stool EPEC (PCR) (NotDetected) Stool EAEC (PCR) (NotDetected) Stl E. histolytica PCR (NotDetected) Stool Giardia Lamblia PCR (NotDetected) Stool Salmonella PCR (NotDetected) Stool Sapovirus (PCR) (NotDetected) Stl P. shigelloides PCR (NotDetected) Stl Shigella/EIEC PCR (NotDetected) St Y.enterocolitica PCR (NotDetected) Stool Vibrio (PCR) (NotDetected) Stl Vibrio cholerae PCR (NotDetected) Stl Norovirus GI/GII PCR (NotDetected) Diagnostic Findings Chest X-Ray 02/12/24 15:34 XR chest 1V portable CLINICAL HISTORY: Sepsis TECHNIQUE: Single frontal radiograph of the chest was obtained. Comparison: Comparison is made to chest radiograph 01/20/2024 FINDINGS: A port catheter is seen. The cardiomediastinal silhouette is normal. The lungs are clear. No evidence of pleural effusion or pneumothorax. IMPRESSION: Interval resolution of previously noted pneumonia. ACT 112: Negative or not required by law. Electronically signed by: Antonio Messina M.D. 02/12/2024 4:12 PM Abdomen/Pelvis CT 02/12/24 16:53 CT OF THE ABDOMEN AND PELVIS WITHOUT CONTRAST CLINICAL HISTORY: Left lower quadrant pain. COMPARISON STUDY: CT of the abdomen and pelvis June 21, 2023. MRI of the abdomen June 22, 2023. TECHNIQUE: Axial images of the abdomen and pelvis were obtained without IV contrast. IV within the right lower extremity infiltrated following contrast administration. The patient's nurse was notified of the extravasation. Images were reviewed in the axial, sagittal, and coronal planes. Automated exposure control was utilized for the study. A dose lowering technique was utilized adhering to the principles of ALARA. FINDINGS: Emphysema is incidentally noted with low lung. Biliary ductal dilatation is similar to prior exam and likely related to cholecystectomy. Spleen, adrenal glands and pancreas are unremarkable. There is no hydronephrosis. No pelvicalyceal, ureteral or bladder filling defects are identified. Sensitivity for detection of urinary calculi is significantly diminished given excreted contrast. Fiducial markers within the prostate are present. No abdominal or pelvic lymphadenopathy. There is no evidence for a bowel obstruction. The colon is mildly fluid-filled. The appendix is normal. No acute fractures are identified within the visualized skeletal structures. IMPRESSION: 1. Fluid-filled colon. This could indicate a diarrheal state. 2. No evidence for a bowel obstruction. Normal appendix. No bowel wall thickening identified. ACT 112: Negative or not required by law. Electronically signed by: Hansel Lopez M.D. 02/12/2024 5:54 PM Chest X-Ray 02/14/24 09:18 XR chest 1V portable CLINICAL HISTORY: dyspnea, increased o2 demand TECHNIQUE: Single frontal radiograph of the chest was obtained. Comparison: Comparison is made to chest radiograph 02/12/2024 FINDINGS: No lines and tubes are seen. The cardiomediastinal silhouette is normal. Reticular interstitial opacities are seen. No evidence of pleural effusion or pneumothorax. IMPRESSION: No acute chest disease. ACT 112: Negative or not required by law. Electronically signed by: Antonio Messina M.D. 02/14/2024 11:57 AM Chest X-Ray 02/15/24 03:28 XR chest 1V portable CLINICAL HISTORY: Hypoxia. COMPARISON STUDY: Chest CT January 20, 2024. Chest radiograph February 14, 2024. FINDINGS: Left subclavian [id number] is unchanged in position. Right basilar opacity has developed. Linear right upper lung density has slightly increased. Underlying emphysema is present. Cardiomediastinal silhouette is stable. There is no pneumothorax or pleural effusion. IMPRESSION: 1. Interval development of right basilar opacity suggestive of pneumonia. 2. Slight increase in linear right upper lung density. This could reflect scarring or additional focus of pneumonia. 3. Emphysema. ACT 112: Negative or not required by law. Electronically signed by: Hansel Lopez M.D. 02/15/2024 6:[address] 02/16/24 09:53 CT chest diagnostic wo con CT DOSE: 295.73 mGy.cm CLINICAL HISTORY: 63 years-old Male with tachypnea. Acute shortness breath TECHNIQUE: Multiaxial CT images of the chest were performed without contrast. A dose lowering technique was utilized adhering to the principles of ALARA. COMPARISON: 01/20/2024 FINDINGS: No thyroid nodule. Left subclavian Dipfay-e-Idly catheter distal tip terminates in the inferior SVC. Small pericardial effusion measures up to 1.3 cm anteriorly which has mildly increased in size. Calcified mediastinal lymph nodes. 8 mm right tracheoesophageal recess lymph node is likely reactive. Small to moderate right and small left pleural effusions. No pneumothorax. Pulmonary emphysema. Pulmonary vascular congestion. Tracheobronchial secretions. 9 mm irregular spiculated nodule left upper lobe on image 99 series 4 which demonstrated along with a 11 mm irregular spicular nodule left upper lobe on image 66 series 4. A few additional smaller subcentimeter nodular foci are noted within the bilateral lungs. There is improvement of the previously described multifocal pneumonia within the left lung compared to the prior chest CT. Patchy right upper lobe and superior segment right lower lobe airspace opacities. No acute upper abdominal abnormality. Cholecystectomy with postoperative changes of the stomach. Unremarkable soft tissues. No acute fracture. IMPRESSION: 1. Emphysema with suggestion of mild pulmonary edema and right greater than left layering pleural effusions. 2. Tracheobronchial secretions with mild right upper lobe and superior segment right lower lobe pneumonia. 3. Improved aeration of the left lung compared to the 01/20/[address] 4. 9 and 11 mm spiculated nodules of the left upper lobe redemonstrated. 5. Prior granuloma disease. 6. Increased size of the small pericardial effusion. ACT 112: Negative or not required by law. Electronically signed by: Sudhakar Biggs M.D. 02/16/2024 11:42 AM PG Care Time/CCT Total # of Minutes Spent Total Time Spent with Patient: Total time spent is greater than 50% in coordination of care (as documented) at patient's floor/unit and/or counseling patient: I spent 135 minutes overall addressing this case: 5 min in medical data review/discussion with referring provider(s) and/or preparation for the visit 20 min in direct interaction with the patient/exam 70 min in Advance Care Planning/Goals of Care discussions as detailed above in note (must be >16min) 20 min in subsequent review and synthesis of assessment and plan 20 min communicating with other providers regarding the patient's case: nursing, primary team Advanced Care Planning 54974 Advanced Care Planning 30 Min 46793 Advanced Care Planning Additional 30 Min (70min total) [place] [address] IN/OBS CONSULT LVL 5,80M (25 - SIGNIFICANT, SEPARATELY IDENTIFIABLE ) Patient Type New Medical Decision Making High Complexity Diagnoses Dyspnea and respiratory abnormalities R06.00; R06.89 Weakness generalized R53.1 Advanced care planning/counseling discussion 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
[2024-02-16 11:32] VITALS: RESP 22
--- NOTE | 2024-02-16 11:43 | CT Scan Report ---
CT chest diagnostic wo con CT DOSE: 295.73 mGy.cm CLINICAL HISTORY: 63 years-old Male with tachypnea. Acute shortness breath TECHNIQUE: Multiaxial CT images of the chest were performed without contrast. A dose lowering techni que was utilized adhering to the principles of ALARA. COMPARISON: 01/20/2024 FINDINGS: No thyroid nodule. Left subclavian Jmkrbm-z-Eize catheter distal tip terminates in the infe rior SVC. Small pericardial effusion measures up to 1.3 cm anteriorly which has mildly increased in s ize. Calcified mediastinal lymph nodes. 8 mm right tracheoesophageal recess lymph node is likely reac tive. Small to moderate right and small left pleural effusions. No pneumothorax. Pulmonary emphysema. Pulmo nary vascular congestion. Tracheobronchial secretions. 9 mm irregular spiculated nodule left upper lo be on image 99 series 4 which demonstrated along with a 11 mm irregular spicular nodule left upper lo be on image 66 series 4. A few additional smaller subcentimeter nodular foci are noted within the hood ateral lungs. There is improvement of the previously described multifocal pneumonia within the left l crystal compared to the prior chest CT. Patchy right upper lobe and superior segment right lower lobe air space opacities. No acute upper abdominal abnormality. Cholecystectomy with postoperative changes of the stomach. Unre markable soft tissues. No acute fracture. IMPRESSION: 1. Emphysema with suggestion of mild pulmonary edema and right greater than left layering pleural eff usions. 2. Tracheobronchial secretions with mild right upper lobe and superior segment right lower lobe pneum onia. 3. Improved aeration of the left lung compared to the 01/20/[address] 4. 9 and 11 mm spiculated nodules of the left upper lobe redemonstrated. 5. Prior granuloma disease. 6. Increased size of the small pericardial effusion. ACT 112: Negative or not required by law. Electronically signed by: Sudhakar Biggs M.D. 02/16/2024 11:42 AM
[2024-02-16] MEDS ORDERED: LORazepam 1 MG in SYRINGE 0.25 ML IV PRN (11:53)
[2024-02-16] MEDS: HYDROmorphone INJ 0.5 MG/0.5 ML SYR IV PRN ×3 (12:15→15:43)
[2024-02-16] MEDS: LORazepam 1 MG in SYRINGE 0.5 ML IV PRN ×2 (12:31→14:41)
[2024-02-16] MEDS ORDERED: HYDROmorphone INJ 0.5 MG/0.5 ML SYR IV PRN (14:12)
[2024-02-16] MEDS: HEPARIN 100 UNIT/ML 5ML FLUSH FLUSH PRN (20:48)
--- NOTE | 2024-02-17 07:49 | Hospitalist Progress Note ---
Date of Service February 17, 2024 Assessment & Plan (1) Diarrhea: (2) Hypokalemia due to excessive gastrointestinal loss of potassium: (3) Hypomagnesemia: (4) Weakness: (5) Prostate cancer: (6) Severe chronic obstructive pulmonary disease: (7) History of lung cancer: (8) Comfort measures only status: Plan Severe COPD/history of lung cancer- Continue usual inhalers, suspect he is in the middle of his baseline range with ?pneumonia on top. Started on CTX and azithromycin. Continue PRN nebs. Was on CTX and azithromycin. Patient may be entering the active phase of dying with his end-stage COPD. 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 Discontinue abx. Continue nebs/oxygen etc for comfort measures. palliative consult, appreciate recs continue dilaudid, ativan, glycopyrrolate continue supportive care, BONE PROCESS OPERATOR Diarrhea With patient's recent hospitalization and abx use there was initial concern for c dif. Was initially started on vancomycin. Stool BioFire and c. dif testing negative. Most likely viral gastroenteritis. Continue supportive care - hydration, imodium etc Dehydration/low magnesium/low potassium- Due to GI losses. No need for further repletion. Tachycardia Sinus tachycardia. Acutely reactive in setting of dehydration and GI losses. Likely a chronic component d/t end stage COPD as well. Diabetes mellitus- d/c treatment Code status: DNR/DNI, now BONE PROCESS OPERATOR FENGI: regular Admission and Anticipated Discharge Date Admission Date: February 12, 2024 Supervising Physician Co-Signing Physician Notes I personally examined the patient and verified hanna points of history and exam, discussed case, and agree with decision making and plan documented by Dr. Shah. Patient resting comfortably in bed, disordered deep breaths, appears comfortable, secretions under control. family is at bedside. Continue comfort measures. Subjective Patient with clinical deterioration. Tachypneic, tachycardic, increasing oxygen requirement. Now BONE PROCESS OPERATOR. Family at bedside. Review of Systems Review of Systems: See HPI Physical Exam Physical Exam: Gen: well appearing patient in NAD HEENT: AT NC MMM Resp: tachypneic, belly breathing, lung sounds diminished diffusely with little to no air movement CV: tachycardic, no m/r/g clinically well perfused Abd: non-distended MSK: no obvious deformities Skin: no rashes or bruising Neuro: alert and oriented Psych: appropriate mood and affect Results & Data Results & Data Vital Signs (Past 12 Hours) Vital Signs O2 Del Method 02/16/24 20:45 Room Air Resident Activity Tracking Resident Involvement: Resident Care Provided Care Provided: Adult Hospital Medicine (1) Diarrhea Diarrhea type: unspecified type Qualified Code(s): R19.7 - Diarrhea, unspecified
[2024-02-17 08:03] VITALS: BP 112/62; PULSE 129; TEMP 97.9; O2SAT 72
[2024-02-17] MEDS ORDERED: LORAZEPAM IV SCH (09:15)
[2024-02-17] MEDS: LORazepam 1.5 MG in SYRINGE 0.75 ML IV SCH (10:42)
--- NOTE | 2024-02-17 11:23 | Palliative Care Progress Note ---
Date of Service February 17, 2024 Assessment & Plan (1) Agitation: Plan: Will slightly increase and schedule Ativan to 1.5mg IV q6h, continue 1mg IV q2h prn seizure/spasms, agitation, restless, insomnia (2) Anxiety: (3) Dyspnea and respiratory abnormalities: Plan: Dilaudid 1mg IV q15min added and Dilaudid 0.3mg dose removed as it is has been used as much as 0.5mg which has not been giving lasting relief (4) Weakness generalized: (5) Comfort measures only status: (6) Non-small cell lung cancer: (7) Severe chronic obstructive pulmonary disease: (8) Palliative care by specialist: Plan ACP meeting face to face with brothers x2 at bedside x 25min: nursing shared that family deferred medications d/t wanting pt to be more interactive. Brothers shared worries that pt is anxious/restless and they do not feel meds are controlling restless enough. They asked about purpose of each medication/how it helps. We reviewed purpose for dilaudid and ativan. they were much reassured with this discussion. INBOUND INGREDIENT LOGISTICS SPECIALIST orders modified D/w nursing Thank you for allowing us to participate in the ongoing care of this patient. Please don't hesitate to call or page with any additional concerns. Dr. Leonarda Fernando DNP Director, Palliative Care Admission and Anticipated Discharge Date Admission Date: February 12, 2024 Subjective Isak remains on INBOUND INGREDIENT LOGISTICS SPECIALIST Brothers x 2 at bedside They have questions about how symptoms are managed, what meds are available/when to ask for meds they report meds are not lasting more than 2 hrs or so Isak is arousable to loud verbal but drifts back easily he does answer simple and yes/no questions, admits to persisting dyspnea and feeling "jittery, need to calm down" I asked him if he felt he needed more medication/comfort and he replied yes Review of Systems Review of Systems: All systems reviewed & are unremarkable except as noted in Subjective and Unobtainable due to reduced consciousness Physical Exam Constitutional: + ill appearing, + cachectic, + altered mental status, + physical limitations, + frail appearing, + disheveled (pt has removed all his clothing and refuses to allow clothes to be placed ) and + in distress Eyes: PERRL and normal accommodation ENMT: Mouth: + dry oral mucous membranes, + poor dentition and + chipped teeth Throat: uvula midline Neck: normal visual inspection and trachea midline Thyroid: normal thyroid Respiratory: + respiratory distress, + labored breath ing, + uses accessory muscles, + cough, + abnormal respiratory pattern, + tachypneic, + nasal flaring and + pursed lip breathing; + not able to speak in complete sentence and + asymmetric chest movement Auscultation: + diminished lung sounds and + wheezes Cardiovascular: Rate/Rhythm: + tachycardic and + irregularly irregular Heart Sounds: normal S1 and normal S2 Vessels: normal peripheral pulses Extremities: + edema (trace); + abnormal capillary refill Gastrointestinal (Abdomen): Percussion/Palpation: abdomen nontender +abdominal breathing Musculoskeletal: generalized weakness +muscle wasting Skin: scattered ecchymoses, pale, cool +venous insuff chnages BLE Neurologic: awake and + confused Gait: + ataxic gait agitated, restless and intermittently confused [facility] delirium screen ++ Psychiatric: Orientation: alert and cooperative Apperance: + disheveled (has removed all clothing, refusing to put gown on) Eye Contact: + fair eye contact Affect: + anxious affect Mood: + anxious mood Thought Process: + tangential thought process tells me he needs to leave for golf game and also said he would punch staff in the eye if they touch him Results & Data Vital Signs (Past 12 Hours) Vital Signs Temp Pulse Resp BP Pulse Ox O2 Del Method 02/17/24 08:00 36.6 C 129 H 22 112/62 72 L Room Air Laboratory Results INBOUND INGREDIENT LOGISTICS SPECIALIST Diagnostic Findings INBOUND INGREDIENT LOGISTICS SPECIALIST PG Care Time/CCT Total # of Minutes Spent Total Time Spent with Patient: Total time spent is greater than 50% in coordination of care (as documented) at patient's floor/unit and/or counseling patient: I spent 70 minutes overall addressing this case: 5 min in medical data review/discussion with referring provider(s) and/or preparation for the visit 15 min in direct interaction with the patient/exam 25 min in Advance Care Planning/Goals of Care discussions as detailed above in note (must be >16min) 10 min in subsequent review and synthesis of assessment and plan 15 min communicating with other providers regarding the patient's case: nursing Advanced Care Planning 84447 Advanced Care Planning 30 Min [place] [address] SUB INP/OBS CARE 3/50MIN (25 - SIGNIFICANT, SEPARATELY IDENTIFIABLE ) Patient Type Established Medical Decision Making High Complexity Diagnoses Agitation R45.1 Anxiety F41.9 Dyspnea and respiratory abnormalities R06.00; R06.89 Weakness generalized R53.1 Comfort measures only status Z51.5 Non-small cell lung cancer C34.90 Severe chronic obstructive pulmonary disease J44.9 Palliative care by specialist Z51.5 Additional Codes Advanced Care Planning - 59930 Advanced Care Planning 30 Min: 68360 Advanced Care Planning 30 Min ([id number])
[2024-02-17] MEDS: HYDROmorphone INJ 1 MG/ML SYRINGE IV PRN (12:34)
[2024-02-17] MEDS ORDERED: LORazepam 1.5 MG in SYRINGE 0.75 ML IV SCH (15:30)
--- NOTE | 2024-02-17 16:07 | Communication Note ---
Date of Service: February 17, 2024 Brief Pall Med Note Isak is more comfortable this afternoon and has not needed additional prn. Will step back Ativan to 1.5mg IV Q8h and no change to prn dose. Discussed with nursing, no indication at this time for Dilaudid infusion, he is much improved as far as comfort - less WOB, less air hunger, less restless and has not been combative with staff. Thank you for allowing us to participate in the ongoing care of this patient. TS 22min Dr. Leonarda Fernando DNP Director, Palliative Care
[2024-02-18] MEDS: LORazepam 1.5 MG in SYRINGE 0.75 ML IV SCH (01:58)
--- NOTE | 2024-02-18 07:52 | Hospitalist Progress Note ---
Date of Service February 18, 2024 Assessment & Plan (1) Diarrhea: (2) Hypokalemia due to excessive gastrointestinal loss of potassium: (3) Hypomagnesemia: (4) Weakness: (5) Prostate cancer: (6) Severe chronic obstructive pulmonary disease: (7) History of lung cancer: (8) Comfort measures only status: Plan Severe COPD/history of lung cancer- Continue usual inhalers, suspect he is in the middle of his baseline range with ?pneumonia on top. Started on CTX and azithromycin. Continue PRN nebs. Was on CTX and azithromycin. Patient may be entering the active phase of dying with his end-stage COPD. 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 Discontinue abx. Continue nebs/oxygen etc for comfort measures. palliative consult, appreciate recs continue dilaudid, ativan, glycopyrrolate continue supportive care, CLOTH ROLL WINDER Diarrhea With patient's recent hospitalization and abx use there was initial concern for c dif. Was initially started on vancomycin. Stool BioFire and c. dif testing negative. Most likely viral gastroenteritis. Continue supportive care - hydration, imodium etc Dehydration/low magnesium/low potassium- Due to GI losses. No need for further repletion. Tachycardia Sinus tachycardia. Acutely reactive in setting of dehydration and GI losses. Likely a chronic component d/t end stage COPD as well. Diabetes mellitus- d/c treatment Code status: DNR/DNI, now CLOTH ROLL WINDER FENGI: regular Admission and Anticipated Discharge Date Admission Date: February 12, 2024 Supervising Physician Co-Signing Physician Notes I personally examined the patient and verified hanna points of history and exam, discussed case, and agree with decision making and plan documented by Dr. Shah. Patient resting comfortably in bed, disordered deep sonorous breaths, secretions under control, diffuse bruising bilateral upper extremities. Mother and family is at bedside. Continue comfort measures. Subjective Seen at bedside this AM. No meaningful HPI obtained. Review of Systems Review of Systems: See HPI Physical Exam Physical Exam: Gen: ill appearing patient in mild distress, appears comfortable HEENT: AT NC MMM Resp: tachypneic, belly breathing CV: clinically well perfused Abd: non-distended MSK: no obvious deformities Skin: no rashes or bruising Neuro: alert and oriented Psych: appropriate mood and affect Results & Data Results & Data Vital Signs (Past 12 Hours) Vital Signs O2 Del Method 02/17/24 20:30 Room Air Resident Activity Tracking Resident Involvement: Resident Care Provided Care Provided: Adult Hospital Medicine (1) Diarrhea Diarrhea type: unspecified type Qualified Code(s): R19.7 - Diarrhea, unspecified
--- NOTE | 2024-02-18 12:02 | Palliative Care Progress Note ---
Date of Service February 18, 2024 Assessment & Plan (1) Agitation: Plan: Continue with scheduled Ativan 1.5mg IV q8h, continue 1mg IV q2h prn seizure/spasms, agitation, restless, insomnia. (2) Anxiety: (3) Dyspnea and respiratory abnormalities: Plan: Dilaudid 1mg IV q15min Dilaudid 0.5mg IV Q15min prn options (4) Weakness generalized: (5) Comfort measures only status: (6) Non-small cell lung cancer: (7) Severe chronic obstructive pulmonary disease: (8) Palliative care by specialist: Plan ACP: Bedside d/w brothers x2. Focus remains comfort. They had many visitors and calls yesterday, pt was able to speak with "his one true love and held onto the phone real tightly when he spoke with her." Their questions about medications/when to use which meds/how do meds help/etc were answered TS in ACP discussion with family x 20min face to face at bedside Thank you for allowing us to participate in the ongoing care of this patient. Please don't hesitate to call or page with any additional concerns. Dr. Leonarda Fernando DNP Director, Palliative Care Admission and Anticipated Discharge Date Admission Date: February 12, 2024 Subjective Remains on comfort care, brothers x 2 at bedside periods of restlessness and will still try to climb out of bed, resting at time of my vsit, eyes will open to loud verbal but quickly drifts back Dyspnea is better in general but he still has episodic resp distress with use of accessory muscles Brother reports he has been having apneas lasting up to approx 20 sec Review of Systems Review of Systems: Unobtainable due to reduced consciousness Physical Exam Constitutional: + ill appearing, + cachectic, + altered mental status, + physical limitations and + frail appearing Eyes: PERRL and normal accommodation ENMT: Mouth: + dry oral mucous membranes, + poor dentition and + chipped teeth Throat: uvula midline Neck: normal visual inspection and trachea midline Thyroid: normal thyroid Respiratory: + respiratory distress, + labored breath ing, + uses accessory muscles, + cough, + abnormal respiratory pattern, + tachypneic, + nasal flaring and + pursed lip breathing; + not able to speak in complete sentence and + asymmetric chest movement Auscultation: + diminished lung sounds and + wheez es Cardiovascular: Rate/Rhythm: + tachycardic and + irregularly irregular Heart Sounds: normal S1 and normal S2 Vessels: normal peripheral pulses Extremities: + edema (trace); + abnormal capillary refill Gastrointestinal (Abdomen): Percussion/Palpation: abdomen nontender +abdominal breathing Musculoskeletal: generalized weakness +muscle wasting Skin: scattered ecchymoses, pale, cool +venous insuff chnages BLE Neurologic: awake and + confused Gait: + ataxic gait agitated, restless and intermittently confused [facility] delirium screen ++ Results & Data Vital Signs (Past 12 Hours) Vital Signs O2 Del Method 02/18/24 08:41 Room Air PG Care Time/CCT Total # of Minutes Spent Total Time Spent with Patient: Total time spent is greater than 50% in coordination of care (as documented) at patient's floor/unit and/or counseling patient: I spent 75 minutes overall addressing this case: 10 min in medical data review/discussion with referring provi paolo(s) and/or preparation for the visit 15 min in direct interaction with the patient/exam 20 min in Advance Care Planning/Goals of Care discussions as detailed above in note (must be >16min) 15 min in subsequent review and synthesis of assessment and plan 15 min communicating with other providers regarding the patient's case: nursing Advanced Care Planning 80624 Advanced Care Planning 30 Min [place] [address] SUB INP/OBS CARE 3/50MIN (25 - SIGNIFICANT, SEPARATELY IDENTIFIABLE ) Patient Type Established Medical Decision Making High Complexity Diagnoses Agitation R45.1 Anxiety F41.9 Dyspnea and respiratory abnormalities R06.00; R06.89 Weakness generalized R53.1 Comfort measures only status Z51.5 Non-small cell lung cancer C34.90 Severe chronic obstructive pulmonary disease J44.9 Palliative care by specialist Z51.5 Additional Codes Advanced Care Planning - 92180 Advanced Care Planning 30 Min: 02332 Advanced Care Planning 30 Min ([id number])
[2024-02-19] MEDS: GLYCOPYRROLATE 0.2 MG/ML VIAL IV PRN (09:21)
--- NOTE | 2024-02-19 12:46 | Palliative Care Progress Note ---
Date of Service February 19, 2024 Assessment & Plan (1) Dyspnea and respiratory abnormalities: Plan: Dilaudid 1mg IV q15min Dilaudid 0.5mg IV Q15min prn options (2) Agitation: Plan: Continue with scheduled Ativan 1.5mg IV q8h, continue 1mg IV q2h prn seizure/spasms, agitation, restless, insomnia. (3) Anxiety: (4) Weakness generalized: (5) Comfort measures only status: (6) Non-small cell lung cancer: (7) Severe chronic obstructive pulmonary disease: (8) Palliative care by specialist: Plan ACP: Bedside d/w Mom and stepdad Focus remains comfort. Mom shares her twin sister suddenly yesterday - had a GA in morning, by evening at [facility]. 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 Please don't hesitate to call or page with any additional concerns. Dr. Leonarda Fernando DNP Director, Palliative Care Admission and Anticipated Discharge Date Admission Date: February 12, 2024 Rosales Parisi is resting easier this morning, Mom and stepdad at bedside. He is using abd muscles to breathe but not as severely as noted in prior days Intermittent apneas 20-30 seconds Mom and stepdad at bedside Review of Systems Review of Systems: Unobtainable due to cognitive status and Unobtainable due to reduced consciousness Physical Exam Constitutional: + ill appearing, + cachectic, + altered mental status, + physical limitations and + frail appearing Eyes: PERRL ENMT: Mouth: + dry oral mucous membranes, + poor dentition and + chipped teeth Throat: uvula midline Neck: trachea midline Thyroid: normal thyroid Respiratory: + respiratory distress, + labored breath ing, + uses accessory muscles, + abnormal respiratory pattern and + pursed lip breathing; + asymmetric chest movement Auscultation: + diminished lung sounds and + wheezes Cardiovascular: Rate/Rhythm: + tachycardic and + irregularly irregular Vessels: normal peripheral pulses Extremities: + edema (trace); + abnormal capillary refill Gastrointestinal (Abdomen): Percussion/Palpation: abdomen nontender +abdominal breathing Musculoskeletal: generalized weakness +muscle wasting Skin: scattered ecchymoses, pale, cool mottling BUE, BLE white nailbeds +venous insuff changes BLE Neurologic: + obtunded Results & Data Vital Signs (Past 12 Hours) Vital Signs O2 Del Method 02/19/24 07:40 Room Air PG Care Time/CCT Total # of Minutes Spent Total Time Spent with Patient: Total time spent is greater than 50% in coordination of care (as documented) at patient's floor/unit and/or counseling patient: I spent 65 minutes overall addressing this case: 10 min in medical data review/discussion with referring provider(s) and/or preparation for the visit 15 min in direct interaction with the patient/exam 20 min in Advance Care Planning/Goals of Care discussions as detailed above in note (must be >16min) 10 min in subsequent review and synthesis of assessment and plan 10 min communicating with other providers regarding the patient's case: Advanced Care Planning [id number] Advanced Care Planning 30 [place] [address] SUB INP/OBS CARE 3/50MIN Patient Type New History Comprehensive Exam Comprehensive Medical Decision Making High Complexity Diagnoses Dyspnea and respiratory abnormalities R06.00; R06.89 Agitation R45.1 Anxiety F41.9 Weakness generalized R53.1 Comfort measures only status Z51.5 Non-small cell lung cancer C34.90 Severe chronic obstructive pulmonary disease J44.9 Palliative care by specialist Z51.5 Additional Codes Advanced Care Planning - 26975 Advanced Care Planning 30 Min: [id number] Advanced Care Planning 30 Min ([id number])
--- NOTE | 2024-02-19 16:15 | Hospitalist Progress Note ---
Date of Service February 19, 2024 Assessment & Plan (1) Diarrhea: (2) Hypokalemia due to excessive gastrointestinal loss of potassium: (3) Hypomagnesemia: (4) Weakness: (5) Prostate cancer: (6) Severe chronic obstructive pulmonary disease: (7) History of lung cancer: (8) Comfort measures only status: Plan Severe COPD/history of lung cancer- Continue usual inhalers, suspect he is in the middle of his baseline range with ?pneumonia on top. Started on CTX and azithromycin. Continue PRN nebs. Was on CTX and azithromycin. Patient may be entering the active phase of dying with his end-stage COPD. 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 Discontinue abx. Continue nebs/oxygen etc for comfort measures. palliative consult, appreciate recs continue dilaudid, ativan, glycopyrrolate continue supportive care, HOG OPERATOR Diarrhea With patient's recent hospitalization and abx use there was initial concern for c dif. Was initially started on vancomycin. Stool BioFire and c. dif testing negative. Most likely viral gastroenteritis. Continue supportive care - hydration, imodium etc Dehydration/low magnesium/low potassium- Due to GI losses. No need for further repletion. Tachycardia Sinus tachycardia. Acutely reactive in setting of dehydration and GI losses. Likely a chronic component d/t end stage COPD as well. Diabetes mellitus- d/c treatment Code status: DNR/DNI, now HOG OPERATOR FENGI: regular Admission and Anticipated Discharge Date Admission Date: February 12, 2024 Review of Systems Review of Systems: See HPI Results & Data Results & Data Vital Signs (Past 12 Hours) Vital Signs O2 Del Method 02/19/24 07:40 Room Air (1) Diarrhea Diarrhea type: unspecified type Qualified Code(s): R19.7 - Diarrhea, unspecified
--- NOTE | 2024-02-19 16:33 | Discharge Summary ---
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 The patient presents to the emergency department due to persistent diarrhea, having anywhere from 6-10 bowel movements daily since having completed his course of antibiotics for recent pneumonia. Most recent admission to [facility] was from 01/19-02/01/2024 for acute on chronic respiratory failure with pneumonia, and he reports that those symptoms have resolved. He presently is on Cipro and Flagyl Principal Diagnosis Chronic Respiratory Failure 2/2 COPD Discharge Exam Patiend declared with absent respirations, pulse at carotid and L radial artery, response to pain, and pupillary response. Discharge Data Allergies Allergy/AdvReac Type Severity Reaction Status Date / Time No Known Allergies Allergy Verified 02/12/24 17:43 Consultations 02/12/24 18:04 ED Decision to Admit Stat 02/16/24 11:11 Consult Palliative Care Routine Ordered Studies 02/12/24 16:53 CT abd pelvis wo con Stat 02/16/24 09:53 CT chest diagnostic wo con Routine Hospital Course (1) Diarrhea: (2) Hypokalemia due to excessive gastrointestinal loss of potassium: (3) Hypomagnesemia: (4) Weakness: (5) Prostate cancer: (6) Severe chronic obstructive pulmonary disease: (7) History of lung cancer: (8) Comfort measures only status: Severe COPD/history of lung cancer- Patient is a 63-year-old male with past medical history of severe COPD/history of lung cancer who presented to the hospital for ongoing loose stools. Unfortunately, his respiratory status continued to decline while hospitalized due to extensive end-stage COPD and was ultimately placed on comfort measures only. Patient was kept comfortable over the course of 72 hours with the assistance of palliative care and unfortunately on 02/19/2024 at 1610, patient with family at bedside confirmed by examination by myself. Diarrhea With patient's recent hospitalization and abx use there was initial concern for c dif. Was initially started on vancomycin. Stool [employer] and c. dif testing negative. Most likely viral gastroenteritis. Continue supportive care - hydration, imodium etc Dehydration/low magnesium/low potassium- Due to GI losses. No need for further repletion. Tachycardia Sinus tachycardia. Acutely reactive in setting of dehydration and GI losses. Likely a chronic component d/t end stage COPD as well. Diabetes mellitus- d/c treatment Total Time Total Time Spent Total Time Spent (In Minutes): 32 Discharge Plan Discharge Items Patient Disposition: Discharge Diagnosis: end stage COPD Other Date/Time: 02/19/24 16:10 Supervising Physician Co-Signing Physician Notes Attending attestation Pt seen and examined in concert with Dr. Andersen. In agreement with the documented findings as noted in the resident documentation with any exceptions or additions as noted here. Gradual progression of agonal breathing with subsequent respiratory arrest. S upportive care provided to family at bedside. On examination, no overt sign of agitation nor reported sx by family. Visible agonal breathing. Else see resident documentation as noted. Total attending physician time spent with this patient's care on the day of discharge: 32 minutes.
== END 2024-02-19 19:42 | disposition expired | DRG 392 ==
LOC: ED 15:17 → SUATTDRO 20:09 → 3E 20:09 → 4W 02-15 04:21 → 3E 02-16 16:37